=== PATIENT | female | born 1965 | race African-American/Black ===

== ENCOUNTER 2019-04-22 18:40 | Emergency (ER) | payer OTHER ==
[2019-04-22 19:32] VITALS: BP 140/94; PULSE 74; TEMP 98; BMI 30.7
--- NOTE | 2019-04-22 19:32 | PDOC ---
Rapid Medical Evaluation Chief Complaint: Injury Time Seen by Provider: 04/22/19 19:28 Medical Evaluation: Allergies Allergy/AdvReac Type Severity Reaction Status Date / Time aspirin Allergy Verified 04/22/19 19:27 Penicillins Allergy Hives Verified 04/22/19 19:27 morphine AdvReac Mild Itching Verified 04/22/19 19:27 ASA Allergy Hives Uncoded 04/22/19 19:27 SEAFOOD Allergy Hives Uncoded 04/22/19 19:27 04/22/19 19:28 This patient had a brief medical evaluation in triage cc: s/p fall HPI: Patient reports trip and fall today, unto back. Reports pain in right wrist and left ankle Denies loc, nausea or vomiting PE: awake and alert, no head laceration unlabored breathing ext: + tenderness with FROM of right wrist + tenderness with palpation of left lateral malleolus Orders: xray of right hand and wrist, and xray of left ankle This patient will proceed to main ed for further evaluation Discharge Disposition - Diagnosis Fall - Referrals - Patient Instructions - Post Discharge Activity
--- NOTE | 2019-04-22 22:33 | PDOC ---
History of Present Illness - General Chief Complaint: Injury Stated Complaint: FALL/PAIN Time Seen by Provider: 04/22/19 19:28 - History of Present Illness Initial Comments: 04/22/19 22:27 53-year-old female with seizure disorder presents for evaluation of multiple injuries after a fall. She complains of headache and dizziness after slipping and banging her head about the occipital scalp. 04/22/19 22:28 She also complains of left foot and right hand pain. Past History - Past Medical History Allergies/Adverse Reactions: Allergies Allergy/AdvReac Type Severity Reaction Status Date / Time aspirin Allergy Verified 04/22/19 19:27 Penicillins Allergy Hives Verified 04/22/19 19:27 morphine AdvReac Mild Itching Verified 04/22/19 19:27 ASA Allergy Hives Uncoded 04/22/19 19:27 SEAFOOD Allergy Hives Uncoded 04/22/19 19:27 Home Medications: Ambulatory Orders Clopidogrel Bisulfate [Plavix -] 75 mg PO DAILY 10/07/15 Haloperidol [Haldol -] 5 mg PO BID 10/07/15 Pantoprazole Sodium [Protonix -] 40 mg PO DAILY 10/07/15 Phenobarbital 32.4 mg PO TID 10/07/15 Salmeterol/Fluticasone [Advair 100Mcg/50Mcg -] 2 inh PO BID 10/07/15 traMADol HCL [Ultram -] 50 mg PO Q6H PRN 10/07/15 Asthma: Yes Cardiac Disorders: Yes CVA: Yes COPD: No Disorders: Yes (kidney stones) HTN: Yes Seizures: Yes - Surgical History Abdominal Surgery: Yes (HERNIA) Cardiac Surgery: Yes (cath/stents) - Immunization History Td Vaccination: Yes Immunization Up to Date: Yes - Psycho Social/Smoking Cessation Hx Smoking Status: Yes Smoking History: Current every day smoker Have you smoked in the past 12 months: Yes Number of Cigarettes Smoked Daily: 2 Information on smoking cessation initiated: No 'Breaking Loose' booklet given: 10/07/15 Hx Alcohol Use: No Drug/Substance Use Hx: No Substance Use Type: None Hx Substance Use Treatment: No Review of Systems - Review of Systems Musculoskeletal: Yes: Joint Pain Neurological: Yes: Headache, Dizziness *Physical Exam - Vital Signs Last Vital Signs Temp Pulse Resp BP Pulse Ox 98.0 F 74 20 140/94 100 04/22/19 19:28 04/22/19 19:28 04/22/19 19:28 04/22/19 19:28 04/22/19 19:28 - Physical Exam 04/22/19 22:32 GENERAL: The patient is awake, alert, and fully oriented, in no acute distress. HEAD: Normal with no signs of trauma. EYES: sclera anicteric, conjunctiva clear. ENT: Ears normal tympanic membranes normal oropharynx clear uvula midline NECK: Normal range of motion LUNGS: Breath sounds equal, clear to auscultation bilaterally. No wheezes, and no crackles. HEART: S1 and S2 without murmur, rub or gallop. ABDOMEN: Soft, nontender, normoactive bowel sounds. No guarding, no rebound. No masses. EXTREMITIES: Normal range of motion, no edema. No clubbing or cyanosis. No cords, erythema, or tenderness. NEUROLOGICAL: Cranial nerves II through XII grossly intact. PSYCH: Normal mood, normal affect. SKIN: Warm, Dry, normal turgor, no rashes or lesions noted. Left foot and ankle skin color and temperature normal range of motion is slightly limited there is mild diffuse tenderness at the dorsum of the foot at a proportion to the examination no gross sensorimotor deficits neurovascular intact 04/22/19 22:32 Right hand skin color and temperature normal no swelling again tenderness seems out of proportion to the examination. Patient refuses to make full fist. No gross sensorimotor deficits neurovascular intact ED Treatment Course - RADIOLOGY Radiology Studies Ordered: Category Date Time Status CERVICAL SPINE CT W/O CONTR [CT] Stat CT Scan 04/22/19 20:[address] WITHOUT CONTRAST [CT] Stat CT Scan 04/22/19 20:11 Completed Medical Decision Making - Medical Decision Making 04/22/19 22:33 X-rays of the left foot and ankle and right hand and wrist show no evidence of fracture trauma or destructive process moderate arthritic changes throughout in both radiographs CT of the head and neck negative for acute process. Follow-up with neurology for postconcussion symptoms and for left foot and ankle and right hand pain follow-up with orthopedic surgery. 04/22/19 22:34 I have reviewed the pathophysiology with the patient. They are in agreement with the treatment plan all questions were answered to their satisfaction. Understanding for follow-up without fail was also conveyed to the patient. Again they are in agreement. Discharge - Discharge Information Problems reviewed: Yes Clinical Impression/Diagnosis: Fall, Right hand pain, Left foot pain, Post-concussion syndrome Condition: Stable Disposition: HOME - Admission No - Follow up/Referral Referrals: Jesse Corral MD [Primary Care Provider] - Pérez Meade MD [Staff Physician] - Federico Yusuf DO [Staff Physician] - - Patient Discharge Instructions Additional Instructions: Without fail follow-up with orthopedic surgery in 2 to 3 days for evaluation of your left foot and ankle pain as well as your right wrist. Without fail follow- up with neurology in 2 to 3 days for further evaluation of your headaches and possibly postconcussion syndrome. Tylenol as directed for pain. Return to the emergency room for worsening symptoms. - Post Discharge Activity
== END 2019-04-22 22:37 | disposition home or self-care (01) ==
LOC: JERFT 18:40
DX: G44.309 Post-traumatic headache, unspecified, not intractable (principal); F07.81 Postconcussional syndrome; M79.642 Pain in left hand; W19.XXXA Unspecified fall, initial encounter; M79.672 Pain in left foot; Y93.89 Activity, other specified; Y92.89 Other specified places as the place of occurrence of the external cause; Y99.8 Other external cause status; G40.909 Epilepsy, unspecified, not intractable, without status epilepticus; I25.10 Atherosclerotic heart disease of native coronary artery without angina pectoris; I10 Essential (primary) hypertension; Z95.5 Presence of coronary angioplasty implant and graft; F17.210 Nicotine dependence, cigarettes, uncomplicated; Z86.73 Personal history of transient ischemic attack (TIA), and cerebral infarction without residual deficits; Z87.09 Personal history of other diseases of the respiratory system; Z79.02 Long term (current) use of antithrombotics/antiplatelets; Z88.0 Allergy status to penicillin; Z88.5 Allergy status to narcotic agent; Z88.6 Allergy status to analgesic agent; Z91.013 Allergy to seafood; Z87.442 Personal history of urinary calculi
CPT/HCPCS: 70450-TC; 72125-TC; 73110-TC-RT-FY; 73130-TC-RT-FY; 73610-TC-LT-FY; 73630-TC-LT; 99284-25

== ENCOUNTER 2019-11-24 10:49 | Emergency (ER) | payer BC, OTHER ==
[2019-11-24 11:19] VITALS: BP 121/79; PULSE 82; TEMP 98; BMI 35.0
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
--- OUTSIDE RECORDS SUMMARY | 2019-11-24 11:49 | XMS ---
:1965 Author Organization [facility] Care Team Providers Name Role Phone Zahraa Wisdom Unavailable Unavailable Franky Watson Unavailable Unavailable HHQUIN, CNR9 Unavailable Unavailable Norberto Manjarrez Unavailable [email or web address] Manjarrez, Pushpinder Unavailable [email or web address] Manjarrez, Pushpinder Unavailable [email or web address] Manjarrez, Pushpinder Unavailable [email or web address] Manjarrez, Pushpinder Unavailable [email or web address] Manjarrez, Pushpinder Unavailable [email or web address] Manjarrez, Pushpinder Unavailable [email or web address] Manjarrez, Pushpinder Unavailable [email or web address] Danae Baxter MD Unavailable Unavailable ADUBORANTIONE MD Unavailable Unavailable ADUBOR, O MD Unavailable Unavailable ADUBOR, O MD Unavailable Unavailable ADUBOR, O MD Unavailable Unavailable ADUBOR, O MD Unavailable Unavailable ADUBOR, O MD Unavailable Unavailable ADUBOR, O MD Unavailable Unavailable ADUBOR, O MD Unavailable Unavailable ADUBOR, O MD Unavailable Unavailable ADUBOR, O MD Unavailable Unavailable ADUBOR, O MD Unavailable Unavailable ADUBOR, O MD Unavailable Unavailable ADUBOR, O MD Unavailable Unavailable ADUBOR, O MD Unavailable Unavailable ADUBOR, O MD Unavailable Unavailable ADUBOR, O MD Unavailable Unavailable ADUBOR, O MD Unavailable Unavailable ADUBOR, O MD Unavailable Unavailable ADUBOR, O MD Unavailable Unavailable Coon Unavailable Unavailable Coon Unavailable Unavailable Coon Unavailable Unavailable Coon Unavailable Unavailable Coon Unavailable Unavailable Coon Unavailable Unavailable Other Unavailable Unavailable Chianfagna, PA-C Unavailable Unavailable Nuria, DO Unavailable Unavailable Hu Unavailable Unavailable Spence, A PA-C Unavailable Unavailable Rios Unavailable Unavailable Lamsen Unavailable Unavailable Michaud Unavailable Unavailable Michaud Unavailable Unavailable Michaud Unavailable Unavailable Michaud Unavailable Unavailable MD Keiko Unavailable Unavailable MD Keiko Unavailable Unavailable MD Keiko Unavailable Unavailable MD Keiko Unavailable Unavailable MD Keiko Unavailable Unavailable MD Keiko Unavailable Unavailable MD Keiko Unavailable Unavailable [email or web address] Unavailable Unavailable MD Doris Unavailable Unavailable Alberto Unavailable Unavailable Corrina Unavailable Unavailable Naaraayan Unavailable Unavailable Thuy Walker MD Unavailable Unavailable Thuy Walker MD Unavailable Unavailable Thuy Walker MD Unavailable Unavailable Thuy Walker MD Unavailable Unavailable Iamele Unavailable Unavailable Iamele Unavailable Unavailable Iamele Unavailable Unavailable MD Suyapa Unavailable Unavailable Re-disclosure Warning The records that you are about to access may contain information from federally- assisted alcohol or drug abuse programs. If such information is present, then the following federally mandated warning applies: This information has been disclosed to you from records protected by federal confidentiality rules (42 CFR part 2). The federal rules prohibit you from making any further disclosure of this information unless further disclosure is expressly permitted by the written consent of the person to whom it pertains or as otherwise permitted by 42 CFR part 2. A general authorization for the release of medical or other information is NOT sufficient for this purpose. The Federal rules restrict any use of the information to criminally investigate or prosecute any alcohol or drug abuse patient.The records that you are about to access may contain highly sensitive health information, the redisclosure of which is protected by Article 27-F of the [facility] Public Health law. If you continue you may haveaccess to information: Regarding HIV / AIDS; Provided by facilities licensed or operated by the [facility] Office of Mental Health; or Provided by the [facility] Office for People With Developmental Disabilities. If such information is present, then the following [facility] mandated warning applies: This information has been disclosed to you from confidential records which are protected by state law. State law prohibits you from making any further disclosure of this information without the specific written consent of the person to whom it pertains, or as otherwise permitted by law. Any unauthorized further disclosure in violation of state law may result in a fine or halfway sentence or both. A general authorization for the release of medical or other information is NOT sufficient authorization for further disclosure. 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 directive Hospital Advance No completed [facility] directive Hospital Allergies and Adverse Reactions Type Description Substance Reaction Status Data Source(s ) Drug allergy clindamycin HCl clindamycin HCl SI GMACARE ([facility]) Food allergy shellfish shellfish SOB SV [facility] Hospital Drug allergy ondansetron ondansetron RASH MO [facility] Hospital Drug allergy aspirin aspirin RASH MO [facility] Drug allergy morphine morphine RASH MO [facility] Drug allergy Penicillins Penicillins RASH MO [facility] Drug allergy Morphine Morphine Itching NEXTGEN ([facility]) propensity to Penicillins Penicillins Hives NEXTGEN ( [facility] adverse reactions [facility]) [id number] Synonym(s): BONY Weal Active [facility] FLESH; Health System MINCED FISH Miscellaneous Sea Food Sea Food SIGMACARE allergy ([facility]) Drug allergy penicillin G penicillin G SIGMACAR E benzathine benzathine ([facility]) Drug allergy aspirin aspirin SIGMACARE ([facility]) [id number] clindamycin Clindamycin Weal Active [facility] System [id number] aspirin Aspirin Weal Active [facility] 360285429 penicillin Penicillin Weal Active [facility] [id number] Fish Synonym(s): BONY Weal Active [facility] FLESH; [facility] MINCED FISH [id number] Iohexol Other See Desc Active [facility] Pruritic rash Health Syst em itching [id number] Penicillin [facility] [id number] Aspirin Weal Active [facility] Encounters Encounter Providers Location Date Indications Data Source(s ) Outpatient Attender: [address] 09/21/2019 [facility] ([facility] 11:29:59 AM [facility] EDT [facility]) Patient admitted. Outpatient Attender: [address] 07/31/2019 03:49:30 PM [facility] EDT [facility]) Patient admitted. Outpatient Attender: [address] 06/19/2019 11:16:14 AM [facility] EDT [facility]) Patient admitted. Outpatient Attender: [address] 06/19/2019 11:14:31 AM [facility] EDT [facility]) Patient admitted. Outpatient Attender: [address] 06/19/2019 11:04:45 AM [facility] ([facility] EDT [facility]) Patient admitted. Outpatient Attender: [address] 05/10/2019 06:23:22 AM [facility] ([facility] EDT [facility]) Patient admitted. Outpatient Attender: [address] 03/14/2019 03:18:47 PM [facility] EST [facility]) Patient admitted. Inpatient Attender: Mahdi QUISPE 03/13/2019 R47.81 Slurred S - [facility] MDAttender: 12:51:00 PM EST - [facility] RiosAttender: 03/14/2019 Doctor OtherAdmitter: 07:45:00 PM EST Mahdi Aden MDConsultant: Dede Adan R47.81 Slurred speech Patient discharged. Outpatient Attender: CNR9 [facility]CCC 03/04/2019 03:49:40 PM [facility] ([facility]) Patient admitted. Inpatient Attender: Norberto 6 WEST-3 EAST 02/27/2019 02:00:00 SIGMACARE ([facility] PM EST - 02/27/2019 Exten ded Care 08:39:00 PM EST Center) Patient discharged. Inpatient Attender: Mahdi Bourgeois5T 02/22/2019 SEIZURE [facility] - Betty nt Marco MDAttender: 01:48:00 AM EST [facility] DysonAttender: 02/27/2019 ISCHEMIC [facility] Doctor OtherAdmitter: 10:00:00 AM EST Mahdi Aden MDReferrer: ANTIONE CRANE MD SEIZURE TRANSCIENT ISCHEMIC ATTACK Patient discharged. Inpatient Attender: Deon GARCIA-PCU 02/01/2019 R56.9 Seizure Rashad Vu: 08:11:00 AM EST Alison Loyd BasakAttender: - 02/04/2019 [facility] 12:35:00 PM EST StefaniAttender: Asher Wakler MDAttender: Doctor OtherAdmitter: Ana Merc[facility]nt [facility] R56.9 Seizure Patient discharged. Emergency Attender: Nadia 5T-EMERG 01/25/2019 08:55:00 HEADACHE S - [facility] HuAttender: PM EST - 01/25/2019 [facility] Other 10:16:00 PM EST HEADACHE Patient discharged. Inpatient Attender: Danae Baxter 01/22/2019 02:12:00 SE ROSET[place] MDAttender: Sumit PM EST - [facility]e 10:14:00 PM EST Vee JJ SEIZURE Patient discharged. Emergency Attender: 5T-EMERG 01/22/2019 10:43:00 DIZZINESS [facility] - [place] Other AM EST [facility] l DIZZINESS Admission cancelled. Disregard status an d admitted date. Emergency Attender: Zahraa ICU-EMERG 12/30/2018 WEAKNESS/EMPRESS Rashad Wisdom 10:50:00 AM EST - Tamica e 12/30/2018 [facility] 04:35:00 PM EST WEAKNESS/EMPRESS Patient discharged. Emergency Attender: Zoraida 12/10/2018 01:35:00 BACK/WRIST PAIN Michelle Spence PM EDT - 12/10/2018 [facility] 04:36:00 PM EDT BACK/WRIST PAIN [facility] Patient discharged. Emergency Attender: Gera 12/05/2018 12:28:00 ALLERGIC REACTION Michelle Quiñones DO PM EDT - 12/05/2018 [facility] 12:54:00 PM EDT ALLERGIC REACTION [place] Patient discharged. Emergency Attender: Nadia Avalos 5T-EMERG 11/23/2018 11:44:00 TOOTHACH E [facility] EDT - 11/24/2018 [facility] 12:45:00 AM EDT TOOTHACHE Patient discharged. Emergency 5T-EMERG 11/05/2018 10:27:00 PM FALL, INJURY TO [facility] EDT [facility], [facility]JURY TO [facility] Admission cancelled. Disregard status an d admitted date. Emergency Attender: Edpancho 5T-EMERG 10/25/2018 04:01:00 OFF PSYCH [facility] EDT - 10/25/2018 [facility] 06:49:00 PM EDT OFF PSYCH MEDS Patient discharged. [facility]: [facility] 05/24/2018 [facility] ([facility] 10:15:00 AM EDT - [facility] 05/24/2018 [place]) 10:15:00 AM EDT Emergency 5T-EMERG 05/22/2018 HEADACHE [facility] 07:12:00 AM EDT [place] [facility] HEADACHE Emergency 5T-EMERG 04/07/2018 04:26:00 AM EST ABD PAIN [facility] ABD PAIN Attender: Saint Alva[place]ga 02/22/2018 [facility] ([facility] 01:07:00 PM EST - [facility] 02/22/2018 [place]) 01:07:00 PM EST Attender: [facility] 01/22/2018 [facility] ([facility] 02:05:00 PM EST - [facility] 01/22/2018 [place]) 02:05:00 PM EST Attender: [place] 01/22/2018 [facility] ([facility] 02:00:00 PM EST - [facility] 01/22/2018 [place]) 02:00:00 PM EST Attender: [place] 01/18/2018 [facility] ([facility] 09:49:00 AM EST - [facility] 01/18/2018 [place]) 09:49:00 AM EST Attender: [place] 01[facility]17/2018 [facility] 08:57:00 AM EST - [facility] 01/17/2018 [place]) 08:57:00 AM EST Attender: [place] 01/08/2018 [facility] ([facility] 09:40:00 AM EST - [facility] 01/08/2018 [place]) 09:40:00 AM EST Attender: [place] 01/01/2018 [facility] ([facility] 02:19:00 PM EST - [facility] 01/01/2018 [place]) 02:19:00 PM EST Attender: [place] 12/29/2017 [facility] ([facility] 03:37:00 PM EST - [facility] 12/29/2017 [place]) 03:37:00 PM EST P Attender: Ramirez 11/29/2017 [facility] Suyapa JJ 01:59:00 AM EDT [facility] Attender: [place] 09/19/2017 [facility] 10:22:00 AM EDT ([facility] 09/19/2017 Ct 10:22:00 AM EDT Medical Center) Attender: [place] 09/18/2017 [facility] 10:50:00 AM EDT ([facility] 09/18/2017 Ct 10:50:00 AM EDT Medical Center) Attender: [place] 08/24/2017 [facility] 09:09:00 AM EDT ([facility] 08/24/2017 Ct 09:09:00 AM EDT Medical Center) Attender: 07/26/2017 [id number] 10:18:00 AM EDT [facility] [id number] [facility]_6766 Attender: 07/19/2017 [facility] [id number] 01:34:00 PM EDT [facility] [id number] [facility]6766 Emergency Attender: Franky 07/18/2017 SEIZURE [facility] 02:14:00 AM EDT [facility] - 07/18/2017 06:30:00 AM EDT SEIZURE [facility] Attender: Franky 07/18/2017 01:44:00 SEIZURE- [place] AM EDT [facility] Attender: 03/30/2017 [facility] [id number] 09:00:00 PM [facility]6766 Hospital Attender: 03/23/2017 [place] [id number] 04:45:00 PM [facility]6766 Hospital Attender: Mari Michaud [place] 03/01/2017 [facility] 10:56:00 AM EST [facility] 03/01/2017 Ct 10:56:[address] [facility]) Attender: 03/01/2017 [facility] [id number] 10:19:00 AM [facility]6766 Hospital Attender: 02/28/[id number] 01:56:00 PM EST [facility]6766 Hospital Attender: 06/20/[id number] 11:53:[facility]: 11/17/2010 [place] [id number] 10:10:00 [facility] Attender: 11/15/2010 [place] [id number] 04:23:00 PM EDT [facility]6766 Hospital Attender: 09/07/2010 [facility] [id number] 06:37:00 PM EDT [facility]6766 Hospital Attender: 10/28/2005 [facility] [id number] 05:00:00 PM EDT [facility]6766 Hospital Attender: 10/28/2005 [facility] [id number] 12:00:00 AM EDT [place] [id number] [facility] Immunizations Vaccine Date Status Description Data Source(s) IIV3. This is 02/26/2019 completed Influenza, seasonal, inject able On: 26-Feb-2019 [facility] one of two 12:00:00 AM EST Lot #: [id number] Health System codes replacing CVX [id number], which is being retired. Tdap 09/19/2017 12:00:00 AM EDT completed Tdap N EXTGEN ([facility]) Source: New Immunization Record New in 2011. 03/29/2017 09:02:00 completed influenza, injectable , [place] IIV4 AM EST quadrivalent, preserv Hospit al free New in 2011. 03/29/2017 09:02:00 completed influenza, injectable , [place] IIV4 AM EST quadrivalent, preserv Hospit al free New in 2011. 03/29/2017 09:02:00 completed influenza, injectable , [place] IIV4 AM EST quadrivalent, preserv Hospit al free New in 2011. 03/01/2017 12:00:00 completed Influenza, injectable , NEXTGEN ([facility] IIV4 AM EST quadrivalent, Ct Medica l preservative free, 3 Center) yrs or older Source: New Immunization Record Medications Medication Brand Start Product Dose Route Administrative Pharmacy [facility] Indications Reaction Description Data Name Date Form Instructions Instructions Source(s) Phenytoin phenyt A05765 active Phenyte k [facility] sodium 200 oin 2020 {cap( Health MG Extended 200 mg 07:27: s)} Syst em Release oral 58 PM Oral capsul EST Capsule e, phenytoin extend 200 mg oral ed capsule, releas extended e release Phenobarbit PHENob P04490 active Pheno barbita [facility] al 64.8 MG arbita 2019 {tab( l Health Oral Tablet l 64.8 07:27: s)} Syst em PHENobarbit mg 36 PM al 64.8 mg oral EST oral tablet tablet Sertraline sertra J26341 active Sertra line [facility] 50 MG Oral line 2019 {tab( Health Tablet 50 mg 07:27: s)} System sertraline oral 21 PM 50 mg oral tablet EST tablet Amlodipine amLODI J41228 active AmLODI [place] [facility] 5 MG Oral [place] 5 2019 {tab( Besylate Hea lth Tablet mg 07:27: s)} System amLODIPine oral 13 PM 5 mg oral tablet EST tablet clopidogrel clopid [id number] active Clopi dogrel [facility] 75 MG Oral ogrel 2019 {tab( Bisulfate He alth Tablet 75 mg 07:27: s)} System clopidogrel oral 04 PM 75 mg oral tablet EST tablet benztropine benztr [id number] active Benzt ropine [facility] mesylate 1 opine 2019 {tab( Mesylate Hea lth MG Oral 1 mg 07:26: s)} System Tablet oral 55 PM benztropine tablet EST 1 mg oral tablet Metformin metFOR [id number] active Glucoph age [facility] hydrochlori MIN 2019 {tab( Health de 500 MG 500 mg 07:26: s)} System Oral Tablet oral 33 PM metFORMIN tablet EST 500 mg oral tablet Clonazepam clonazePAM 03/14/2019 1 I44805 aborted clonazePAM 1 mg oral tablet; 1 tab(s) orally 2 times a day Ordered: 14-Mar-2019 Start: 14-Mar-2019 [facility] 1 MG Oral 1 mg oral 07:24:42 PM {tab(s)} Quantity: 0 Tu, Wan Status: Discontinued Health Tablet tablet EST Refills: 0 System clonazePAM 1 mg oral tablet Flucelvax Quad [id number] 02/27/2019 completed Flucelvax Quad SIGMACARE (PF) 08:24:06 AM 201 (PF) ([facility] (flu vac qs EST 60 mcg (15 mc g Extended 2019(4 yr x 4)/0.5 mL IM Care up)cd(pf)) [address]) mcg (15 mcg x 4)/0.5 mL IM syringe Tubersol Purified 02/27/2019 completed T ubersol 5 SIGMACARE (tuberculin Protein 08:24:06 AM tub . unit/0.1 ([facility] ppd) 5 tub. Derivative of EST mL i ntradermal Extended unit/0.1 mL Tuberculin 50 inje ction Care intradermal UNT/ML solution Ce nter) injection Injectable solution Solution [Tubersol] benztropine 1 benztropine 02/27/2019 completed benztropine 1 SIGMACARE mg tablet mesylate 1 MG 07:31:30 AM mg tablet ([facility] Oral Tablet [facility]) amlodipine 5 mg Amlodipine 5 MG 02/27/2019 complet ed amlodipine 5 SIGMACARE tablet Oral Tablet 07:31:30 AM mg t ablet ([facility]) clopidogrel 75 clopidogrel 75 02/27/2019 completed clopidogrel 75 SIGMACARE mg tablet MG Oral Tablet 07:31:30 AM mg tablet ([facility]) phenytoin [id number] 02/27/2019 completed phenytoin SIGMACARE sodium extended 07:31:29 AM so dium ([facility] 200 mg capsule EST extended 2 00 Extended mg capsule [facility]) phenobarbital Phenobarbital 02/27/2019 completed phenobarbital SIGMACARE 64.8 mg tablet 64.8 MG Oral 07:31:29 AM 64.8 mg tablet ([facility] Tablet [facility]) sertraline 50 Sertraline 50 02/27/2019 completed sertraline 50 SIGMACARE mg tablet MG Oral Tablet 07:31:29 AM mg tablet ([facility] Extended [facility]) metformin 500 Metformin 02/27/2019 completed metformin 500 SIGMACARE mg tablet hydrochloride 07:31:28 AM mg tablet ([facility] 500 MG Oral EST Extended Tablet [facility]) Phenobarbital PHENobarbital 02/26/2019 1 C active Phenobarbital [facility] 64.8 MG Oral 64.8 mg oral 11:02:45 AM {t 3 Health Tablet tablet EST ab 8 System PHENobarbital (s 2 64.8 mg oral )} 8 tablet 8 Sertraline 50 sertraline 50 02/26/2019 1 C active Sertraline [facility] MG Oral Tablet mg oral tablet 11:02:36 AM {t 3 Health sertraline 50 EST ab 8 System mg oral tablet (s 2 )} 8 8 Phenytoin phenytoin 200 02/26/2019 1 C aborted Phenytek [facility] sodium 200 MG mg oral 11:01:51 AM {c 3 Health Extended capsule, EST ap 8 System Release Oral extended (s 2 Capsule release )} 8 phenytoin 200 8 mg oral capsule, extended release Amlodipine 5 MG amLODIPine 5 mg 02/26/2019 1 C active AmLODIPine [facility] Oral Tablet oral tablet 11:01:37 AM {t 3 [facility] amLODIPine 5 mg EST ab 8 Syst em oral tablet (s 2 )} 8 8 clopidogrel 75 clopidogrel 75 02/26/2019 1 C active Clopidogrel [facility] MG Oral Tablet mg oral tablet 11:01:30 AM {t 3 Bisulfate Health clopidogrel 75 EST ab 8 Syste m mg oral tablet (s 2 )} 8 8 benztropine benztropine 1 02/26/2019 1 C active Benztropine [facility] mesylate 1 MG mg oral tablet 11:01:21 AM {t 3 Mesylate Health Oral Tablet EST ab 8 System benztropine 1 (s 2 mg oral tablet )} 8 8 Metformin metFORMIN 500 02/26/2019 1 C active Glucophage [facility] hydrochloride mg oral tablet 11:01:06 AM {t 3 Health 500 MG Oral EST ab 8 System Tablet (s 2 metFORMIN 500 )} 8 mg oral tablet 8 Amlodipine 5 MG amLODIPine 5 mg 02/04/2019 1 C active AmLODIPine [facility] Oral Tablet oral tablet 12:35:43 PM {t 3 [facility] amLODIPine 5 mg EST ab 8 Syst em oral tablet (s 2 )} 8 8 Nicotine nicotine 02/04/2019 14 active nicotine; 14 milligram(s) transdermally once a day Ordered: 04-Feb-2019 Start: 04-Feb-2019 End: 17-Feb-2019 [facility] nicotine 12:06:27 PM mg Quantity: 14 Heath [employer] EST Refills: 0 System Amlodipine 5 amLODIPine 02/04/2019 5 [id number] aborted AmLODIPine [facility] MG Oral 5 mg oral 12:05:48 PM {tab(s)} B esylate Health Tablet tablet EST System amLODIPine 5 mg oral tablet clopidogrel clopidogrel 02/04/2019 1 [id number] active Clopidogrel [facility] 75 MG Oral 75 mg oral 12:03:26 PM {tab(s)} Bisulfate Health Tablet tablet EST System clopidogrel 75 mg oral tablet Naproxen 500 Naproxen 12/10/2018 T 500 mg ORAL complete White MG Oral 04:03:00 PM A d Plain s Tablet EDT B [facility] [Naprosyn] L E T Methocarbamo Methocarbam 12/10/2018 T 750 mg ORAL complete White l 750 MG ol 04:03:00 PM A d Plai ns Oral Tablet EDT B Hospital [Robaxin] L E T Methocarbamo Methocarbam 12/10/2018 T 750 mg ORAL complete White l 750 MG ol 04:03:00 PM A d Plai ns Oral Tablet EDT B [facility] [Robaxin] L E T Naproxen 500 Naproxen 12/10/2018 T 500 mg ORAL complete White MG Oral 04:03:00 PM A d Plain s Tablet EDT [facility] [Naprosyn] L E T Diphenhydram Diphenhydra 12/05/2018 C 25 mg ORAL complete [facility] ine mine Hcl 12:55:00 PM A d Plai ns Hydrochlorid EDT [facility]osp[facility] e 25 MG Oral S Capsule U [Benadryl] L Diphenhydram E ine Hcl Diphenhydram Diphenhydra 12/05/2018 C 25 mg ORAL complete [facility] ine mine Hcl 12:55:00 PM A d Plai ns Hydrochlorid EDT P Hospita l e 25 MG Oral S Capsule U [Benadryl] L Diphenhydram E ine Hcl Diphenhydram Diphenhydra 12/05/2018 C 25 mg ORAL complete White ine mine Hcl 12:55:00 PM A d Plai ns Hydrochlorid EDT P Hospita l e 25 MG Oral S Capsule U [Benadryl] L Diphenhydram E ine Hcl Hydrocortiso Hydrocortis 12/05/2018 C 1 TOPICAL complete [facility] ne 10 MG/ML one 12:54:00 PM R {Applicat d [facility] Topical EDT E or} Hospital Cream A M Hydrocortiso Hydrocortis 12/05/2018 C 1 TOPICAL complete [facility] ne 10 MG/ML one 12:54:00 PM R {Applicat d [facility] Topical EDT E or} Hospital Cream A M Hydrocortiso Hydrocortis 12/05/2018 C 1 TOPICAL complete [facility] ne 10 MG/ML one 12:54:00 PM R {Applicat d [facility] Topical EDT E or} Hospital Cream A M Diphenhydram Diphenhydra 12/05/2018 C 25 mg ORAL complete [facility] in[facility] Hcl 12:43:00 PM A d [facility]ai ns Hydrochlorid EDT P [facility]ospita [facility] e 25 MG Oral S Capsule U [Benadryl] L Diphenhydram E ine Hcl Diphenhydram Diphenhydra 12/05/2018 C 25 mg ORAL complete [facility] in[facility] Hcl 12:43:00 PM A d Plai ns Hydrochlorid EDT P [facility]ospita [facility] e 25 MG Oral S Capsule U [Benadryl] L Diphenhydram E ine Hcl Diphenhydram Diphenhydra 12/05/2018 C 25 mg ORAL complete [facility] in[facility] Hcl 12:43:00 PM A d Plai ns Hydrochlorid EDT P [facility]ospita [facility] e 25 MG Oral S Capsule U [Benadryl] L Diphenhydram E ine Hcl Hydrocortiso Hydrocortis 12/05/2018 C 1 TOPICAL complete [facility] ne 10 MG/ML one 12:43:00 PM R {Applicat d [facility] Topical EDT E or} Hospital Cream A M Hydrocortiso Hydrocortis 12/05/2018 C 1 TOPICAL complete [facility] ne 10 MG/ML one 12:43:00 PM R {Applicat d [facility] Topical EDT E or} Hospital Cream A M Hydrocortiso Hydrocortis 12/05/2018 C 1 TOPICAL complete [facility] ne 10 MG/ML one 12:43:00 PM R {Applicat d [facility] Topical EDT E or} Hospital Cream A M Ibuprofen ibuprofen 11/24/2018 1 [id number] complete Ibuprofen [facility] 800 MG Oral 800 mg oral 12:27:02 AM {tab(s)} d [facility] Tablet tablet EDT System ibuprofen 800 mg oral tablet Hydroxyzine hydrOXYzine 10/25/2018 1 [id number] aborted Vistaril [facility] Pamoate 50 pamoate 50 06:23:48 PM {cap(s)} Health MG Oral mg oral EDT System Capsule capsule hydrOXYzine pamoate 50 mg oral capsule May cause drowsiness. Alcohol may inten sify this effect. Use care when operating dangerous machinery.Obtain medical advic e before taking any non-prescription drugs as some may affect the action of this medic ation. Haloperidol haloperidol 10/25/2018 1 [id number] aborted Haloperidol [facility] 5 MG Oral 5 mg oral 06:22:42 PM {tab(s)} Health Tablet tablet EDT System haloperidol 5 mg oral tablet It is very important that you take or us e this exactly as directed. Do not skip doses or discontinue unless directed by your doctor.May cause drowsiness. Alcohol may intensify this effect. Use care whe n operating dangerous machinery.Obtain medical advice before taking any non-pre scription drugs as some may affect the action of this medication. benztropine benztropine 10/25/2018 1 [id number] aborted Benztropine [facility] mesylate 1 1 mg oral 06:22:30 PM {tab(s)} Mesylate [facility] MG Oral tablet EDT System Tablet benztropine 1 mg oral tablet It is very important that you take or us e this exactly as directed. Do not skip doses or discontinue unless directed by your doctor.May cause drowsiness. Alcohol may intensify this effect. Use care whe n operating dangerous machinery.Obtain medical advice before taking any non-pre scription drugs as some may affect the action of this medication. Cyclobenzaprine cyclobenzaprine 02/24/2018 1 [id number] completed Cyclobenzaprine [facility] hydrochloride 10 10 mg oral 09:51:14 AM {tab(s)} Hydrochloride [facility] MG Oral Tablet tablet EST Sys tem cyclobenzaprine 10 mg oral tablet May cause drowsiness. Alcohol may inten sify this effect. Use care when operating dangerous machinery.Obtain medical advic e before taking any non-prescription drugs as some may affect the action of this medic ation. Lidocaine Lidoderm 02/24/2018 1 [id number] completed Lidoderm [facility] Hydrochloride 5% 09:50:31 AM {PATCH} Health 0.05 MG/MG topical EST System Transdermal film Patch [Lidoderm] Lidoderm 5% topical film For external use only.Remove old patch p rior to applying a new patch. benztropine benztropine 1 02/14/2018 TABLET 1 ORAL completed [facility] mesylate 1 MG mg oral 10:20:59 AM {tab(s)} [facility] Oral Tablet tablet EST System benztropine 1 mg oral tablet It is very important that you take or us e this exactly as directed. Do not skip doses or discontinue unless directed by your doctor.May cause drowsiness. Alcohol may intensify this effect. Use care whe n operating dangerous machinery.Obtain medical advice before taking any non-pre scription drugs as some may affect the action of this medication. Clonazepam KlonoPIN 02/14/2018 1 {tab(s)} [id number] aborted KlonoPIN [facility] 0.5 MG Oral 0.5 mg 10:20:29 AM Health Tablet oral EST System [Klonopin] tablet KlonoPIN 0.5 mg oral tablet Caution federal law prohibits the transf er of this drug to any person other than the person for whom it was prescribed.Do not drink alcoholic beverages when taking this medication.Do not take this drug if you are .It is very important that you take or use this exactly as directed. D o not skip doses or discontinue unless directed by your doctor.May cause drowsi ness. Alcohol may intensify this effect. Use care when operating dangerous morales ju[place].Obtain medical advice before taking any non-prescription drugs as some may affec t the action of this medication.This drug may impair the ability to drive or operate m [facility]. Use care until you become familiar with its effects. aripiprazole 20 Abilify - 01/15/2018 1 Tablet ORAL completed Abilify - [facility] Oral Tablet 20 MG ORAL 12:00:00 AM 20 MG [facility] [Abilify] Tablet EST ORAL Hospital Tablet Sertraline 50 Zoloft - 01/15/2018 3 Tablet ORAL completed Zoloft - [facility] Oral Tablet 50 MG ORAL 12:00:00 AM 50 MG [facility] [Zoloft] Tablet EST ORAL Hospital Tablet benztropine Benztropin 01/15/2018 1 Tablet ORAL completed Benztropi [facility] mesylate 1 MG e Mesylate 12:00:00 AM ne [facility] Oral Tablet - 1 MG EST Mesylate Ho spital ORAL - 1 MG Tablet ORAL Tablet Clonazepam 0.5 KlonoPIN - 12/15/2017 1 Tablet ORAL completed KlonoPIN [facility] Oral Tablet 0.5 MG 12:00:00 AM - 0.5 MG [facility] [Klonopin] ORAL EDT ORAL Hospital Tablet Tablet benztropine Benztropin 12/15/2017 2 Tablet ORAL completed Benztropi [facility] mesylate 2 MG e Mesylate 12:00:00 AM ne [facility] Oral Tablet - 2 MG EDT Mesylate Ho spital ORAL - 2 MG Tablet ORAL Tablet aripiprazole 20 Abilify - 12/15/2017 1 Tablet ORAL completed Abilify - [facility] Oral Tablet 20 MG ORAL 12:00:00 AM 20 MG [facility] [Abilify] Tablet EDT ORAL Hospital Tablet Sertraline 50 Zoloft - 12/15/2017 3 Tablet ORAL completed Zoloft - [facility] Oral Tablet 50 MG ORAL 12:00:00 AM 50 MG [facility] [Zoloft] Tablet EDT ORAL Hospital Tablet 24 HR Nicotine Nicotine 12/04/2017 PAT 1 TRANSD completed [facility] 0.875 MG/HR 02:58:00 PM [facility] {Patch} ERMAL [facility] Transdermal EDT [facility] Patch 24 HR Nicotine Nicotine 12/04/2017 PAT 1 TRANSD completed [facility] 0.875 MG/HR 02:58:00 PM [facility] {Patch} ERMAL [facility] Transdermal EDT [facility] Patch Salmeterol 12/04/2017 1 RESPIR completed [facility] Xinafoate/Fluti 02:58:00 PM ATORY [facility] casone EDT (INHAL [facility]) Salmeterol 12/04/2017 1 RESPIR completed [facility] Xinafoate/Fluti 02:58:00 PM ATORY [facility] casone EDT (INHAL [facility]) Albuterol 12/04/2017 AER 2 RESPIR completed [facility] 02:58:00 PM TAM ATORY [facility] EDT L, (INHAL [facility]) AY Salmeterol 12/04/2017 1 RESPIR completed [facility] Xinafoate/Fluti 02:58:00 PM ATORY [facility] casone EDT (INHAL [facility]) Losartan Losartan 12/04/2017 TAB 50 mg ORAL completed [facility] Potassium 50 MG Potassium 02:58:00 PM LET [facility] Oral Tablet EDT Hospital [Cozaar] Albuterol 12/04/2017 AER 2 RESPIR completed [facility] 02:58:00 PM TAM ATORY [facility] EDT L, (INHAL [facility]) AY Losartan Losartan 12/04/2017 TAB 50 mg ORAL completed [facility] Potassium 50 MG Potassium 02:58:00 PM LET [facility] Oral Tablet EDT Hospital [Cozaar] 24 HR Nicotine Nicotine 12/04/2017 PAT 1 TRANSD completed [facility] 0.875 MG/HR 02:58:00 PM [facility] {Patch} ERMAL [facility] Transdermal T [facility] Patch Losartan Losartan 12/04/2017 TAB 50 mg ORAL completed [facility] Potassium 50 MG Potassium 02:58:00 PM [facility] Oral Tablet T [facility] [Cozaar] Albuterol 12/04/2017 AER 2 RESPIR completed [facility] 02:58:00 PM TAM ATORY [facility] EDT L, ([facility]) AY Prednisone 20 Prednisone 11/27/2017 TAB 40 mg ORAL completed [facility] MG Oral Tablet 12:58:00 PM [facility] 200 ACTUAT Albuterol 11/27/2017 AER 2 ORAL completed [facility] Albuterol 0.09 Sulfate 12:58:00 PM TAM [facility] MG/ACTUAT Hfa EDT L, Hospital Metered Dose 90MCG/Inh* SPR Inhaler AY [ProAir] Albuterol Sulfate Hfa 90MCG/Inh* Prednisone 20 Prednisone 11/27/2017 TAB 40 mg ORAL completed [facility] MG Oral Tablet 12:58:00 PM [facility] 200 ACTUAT Albuterol 11/27/2017 AER 2 ORAL completed [facility] Albuterol 0.09 Sulfate 12:58:00 PM TAM [facility] MG/ACTUAT Hfa EDT L, Hospital Metered Dose 90MCG/Inh* SPR Inhaler AY [ProAir] Albuterol Sulfate Hfa 90MCG/Inh* 200 ACTUAT Albuterol 11/27/2017 AER 2 ORAL completed [facility] Albuterol 0.09 Sulfate 12:58:00 PM TAM [facility] MG/ACTUAT Hfa EDT L, Hospital Metered Dose 90MCG/Inh* SPR Inhaler AY [ProAir] Albuterol Sulfate Hfa 90MCG/Inh* Prednisone 20 Prednisone 11/27/2017 TAB 40 mg ORAL completed [facility] MG Oral Tablet 12:58:00 PM [facility] Naltrexone 112 Vivitrol - 11/14/2017 380 INTRAM completed Vivitrol [facility] MG/ML 380 MG 12:00:00 AM Milligra USCULA - 38 0 MG [facility] Injectable INTRAMUSCU EDT m R INTRAMUS C Hospital Suspension LAR Powder ULAR [Vivitrol] for Powder Suspension for , Extended Suspensio Release n, Extended Release atorvastatin 40 Atorvastat 11/14/2017 1 Tablet ORAL complete d Atorvasta [facility] Oral Tablet in Calcium 12:00:00 AM tin [facility] - 40 MG EDT Calcium - Hospita l ORAL 40 MG Tablet ORAL Tablet aripiprazole 15 Abilify - 11/14/2017 1 Tablet ORAL completed Abilify - [facility] MG Oral Tablet 15 MG ORAL 12:00:00 AM 15 MG [facility] [Abilify] Tablet EDT ORAL Hospital Tablet Sertraline 100 Sertraline 11/14/2017 1 Tablet ORAL completed Sertralin [facility] Oral Tablet HCl - 100 12:00:00 AM e HCl - [facility] MG ORAL EDT 100 MG Hospital Tablet ORAL Tablet benztropine Benztropin 11/14/2017 1 Tablet ORAL completed Benztropi [facility] mesylate 1 MG e Mesylate 12:00:00 AM ne [facility] Oral Tablet - 1 MG EDT Mesylate Ho spital ORAL - 1 MG Tablet ORAL Tablet Phenobarbital PHENobarbi 11/14/2017 1 Tablet ORAL completed PHENobarb [facility] 60 MG Oral brandon - 60 12:00:00 AM kerry l - 60 [facility] Tablet MG ORAL EDT MG ORAL Hospita l Tablet Tablet Clonazepam 1 MG KlonoPIN - 11/14/2017 1 Tablet ORAL complete d KlonoPIN [facility] Oral Tablet 1 MG ORAL 12:00:00 AM - 1 MG [facility] [Klonopin] Tablet EDT ORAL Hospita l Tablet Phenytoin Dilantin - 11/14/2017 1 ORAL completed Dilantin [facility] sodium 100 MG 100 MG 12:00:00 AM Capsule - 100 MG [facility] Extended ORAL EDT ORAL Hospital Release Oral Capsule, Capsule, Capsule Extended Extended [Dilantin] Release Release Haloperidol 11/14/2017 100 INTRAM completed Haloperid [facility] Decanoate - 100 12:00:00 AM Milligra USCULA ol [facility] MG/1 ML EDT m R [facility] INTRAMUSCULAR - 100 Oil MG/1 ML INTRAMUSC ULAR Oil clopidogrel 75 Clopidogre 10/26/2017 TAB 75 mg ORAL completed [facility] MG Oral Tablet l 01:00:00 PM LET [facility] [Plavix] Bisulfate EDT Hospit al Clopidogrel Bisulfate pantoprazole 40 Pantoprazo 10/26/2017 TAB 40 mg ORAL completed [facility] MG Delayed le Sodium 01:00:00 PM LET [facility] Release Oral EDT Hospita l Tablet [Protonix] Pantoprazole Sodium benztropine Benztropin 10/26/2017 TAB 1 mg ORAL completed [facility] mesylate 1 MG e Mesylate 01:00:00 PM LET [facility] Oral Tablet EDT Hospital Benztropine Mesylate atorvastatin 40 Atorvastat 10/26/2017 TAB 40 mg ORAL completed [facility] MG Oral Tablet in Calcium 01:00:00 PM LET [facility] Atorvastatin EDT Hospita l Calcium clopidogrel 75 Clopidogre 10/26/2017 TAB 75 mg ORAL completed [facility] MG Oral Tablet l 01:00:00 PM LET [facility] [Plavix] Bisulfate EDT Hospit al Clopidogrel Bisulfate benztropine Benztropin 10/26/2017 TAB 1 mg ORAL completed [facility] mesylate 1 MG e Mesylate 01:00:00 PM LET [facility] Oral Tablet EDT Hospital Benztropine Mesylate benztropine Benztropin 10/26/2017 TAB 1 mg ORAL completed [facility] mesylate 1 MG e Mesylate 01:00:00 PM LET [facility] Oral Tablet EDT Hospital Benztropine Mesylate pantoprazole 40 Pantoprazo 10/26/2017 TAB 40 mg ORAL completed [facility] MG Delayed le Sodium 01:00:00 PM LET [facility] Release Oral EDT Hospita l Tablet [Protonix] Pantoprazole Sodium Phenytoin Phenytoin 10/26/2017 CAP 1 ORAL completed [facility] sodium 100 MG Sodium 01:00:00 PM SUL {Capsule [facility] Extended Extended EDT E } Hospita l Release Oral Capsule Phenytoin Sodium Extended pantoprazole 40 Pantoprazo 10/26/2017 TAB 40 mg ORAL completed [facility] MG Delayed le Sodium 01:00:00 PM LET [facility] Release Oral EDT Hospita l Tablet [Protonix] Pantoprazole Sodium Metoprolol Metoprolol 10/26/2017 TAB 12.5 mg ORAL completed [facility] Tartrate 25 MG Tartrate 01:00:00 PM LET [facility] Oral Tablet EDT Hospital clopidogrel 75 Clopidogre 10/26/2017 TAB 75 mg ORAL completed [facility] MG Oral Tablet l 01:00:00 PM LET [facility] [Plavix] Bisulfate EDT Hospit al Clopidogrel Bisulfate Metoprolol Metoprolol 10/26/2017 TAB 12.5 mg ORAL completed [facility] Tartrate 25 MG Tartrate 01:00:00 PM LET [facility] Oral Tablet EDT Hospital atorvastatin 40 Atorvastat 10/26/2017 TAB 40 mg ORAL completed [facility] MG Oral Tablet in Calcium 01:00:00 PM LET [facility] Atorvastatin EDT Hospita l Calcium Metoprolol Metoprolol 10/26/2017 TAB 12.5 mg ORAL completed [facility] Tartrate 25 MG Tartrate 01:00:00 PM LET [facility] Oral Tablet EDT Hospital Phenytoin Phenytoin 10/26/2017 CAP 1 ORAL completed [facility] sodium 100 MG Sodium 01:00:00 PM SUL {Capsule [facility] Extended Extended EDT E } Hospita l Release Oral Capsule Phenytoin Sodium Extended Phenytoin Phenytoin 10/26/2017 CAP 1 ORAL completed [facility] sodium 100 MG Sodium 01:00:00 PM SUL {Capsule [facility] Extended Extended EDT E } Hospita l Release Oral Capsule Phenytoin Sodium Extended atorvastatin 40 Atorvastat 10/26/2017 TAB 40 mg ORAL completed [facility] MG Oral Tablet in Calcium 01:00:00 PM LET [facility] Atorvastatin EDT Hospita l Calcium Phenobarbital Phenobarbi 10/26/2017 TAB 64.8 mg ORAL completed [facility] 32.4 MG Oral brandon 12:26:00 PM LET [facility] Tablet EDT Hospital Phenobarbital Phenobarbi 10/26/2017 TAB 64.8 mg ORAL completed [facility] 32.4 MG Oral brandon 12:26:00 PM LET [facility] Tablet EDT Hospital Phenobarbital Phenobarbi 10/26/2017 TAB 64.8 mg ORAL completed [facility] 32.4 MG Oral brandon 12:26:00 PM LET [facility] Tablet EDT Hospital Phenytoin Dilantin - 10/20/2017 1 ORAL completed Dilantin [facility] sodium 100 MG 100 MG 12:00:00 AM Capsule - 100 MG [facility] Extended ORAL EDT ORAL Hospital Release Oral Capsule, Capsule, Capsule Extended Extended [Dilantin] Release Release Clonazepam 1 MG KlonoPIN - 10/20/2017 1 Tablet ORAL complete d KlonoPIN [facility] Oral Tablet 1 MG ORAL 12:00:00 AM - 1 MG [facility] [Klonopin] Tablet EDT ORAL Hospita l Tablet aripiprazole 15 Abilify - 10/20/2017 1 Tablet ORAL completed Abilify - [facility] MG Oral Tablet 15 MG ORAL 12:00:00 AM 15 MG [facility] [Abilify] Tablet EDT ORAL Hospital Tablet Naltrexone 112 Vivitrol - 10/20/2017 380 INTRAM completed Vivitrol [facility] MG/ML 380 MG 12:00:00 AM Mill[facility] USCULA - 38 0 MG [facility] Injectable INTRAMUSCU EDT m R INTRAMUS C Hospital Suspension LAR Powder ULAR [Vivitrol] for Powder Suspension for , Extended Suspensio Release n, Extended Release atorvastatin 40 Atorvastat 10/20/2017 1 Tablet ORAL complete d Atorvasta [facility] Oral Tablet in Calcium 12:00:00 AM tin [facility] - 40 MG EDT Calcium - Hospita l ORAL 40 MG Tablet ORAL Tablet Haloperidol 10/20/2017 100 INTRAM completed Haloperid [facility] Decanoate - 100 12:00:00 AM Millig[facility] USCULA ol [facility] MG/1 ML EDT m [facility] INTRAMUSCULAR - 100 Oil MG/1 ML INTRAMUSC ULAR Oil Sertraline 100 Sertraline 10/20/2017 1 Tablet ORAL completed Sertralin [facility] MG Oral Tablet HCl - 100 12:00:00 AM e HCl - [facility] MG ORAL EDT 100 MG Hospital Tablet ORAL Tablet benztropine Benztropin 10/20/2017 1 Tablet ORAL completed Benztropi [facility] mesylate 1 MG e Mesylate 12:00:00 AM ne [facility] Oral Tablet - 1 MG EDT Mesylate Ho spital ORAL - 1 MG Tablet ORAL Tablet Phenobarbital PHENobarbi 10/20/2017 1 Tablet ORAL completed PHENobarb [facility] 60 MG Oral brandon - 60 12:00:00 AM kerry l - 60 [facility] Tablet MG ORAL EDT MG ORAL Hospita l Tablet Tablet Haloperidol 10/03/2017 100 INTRAM completed Haloperid [facility] Decanoate - 100 12:00:00 AM Milligra USCULA ol [facility] MG/1 ML EDT m [facility] INTRAMUSCULAR - 100 Oil MG/1 ML INTRAMUSC ULAR Oil Sertraline 100 Sertraline 10/03/2017 1 Tablet ORAL completed Sertralin [facility] MG Oral Tablet HCl - 100 12:00:00 AM e HCl - [facility] MG ORAL EDT 100 MG Hospital Tablet ORAL Tablet atorvastatin 40 Atorvastat 10/03/2017 1 Tablet ORAL complete d Atorvasta [facility] MG Oral Tablet in Calcium 12:00:00 AM tin [facility] - 40 MG EDT Calcium - Hospita l ORAL 40 MG Tablet ORAL Tablet Phenobarbital PHENobarbi 10/03/2017 1 Tablet ORAL completed PHENobarb [facility] 60 MG Oral brandon - 60 12:00:00 AM kerry l - 60 [facility] Tablet MG ORAL EDT MG ORAL Hospita l Tablet Tablet Phenytoin Dilantin - 10/03/2017 1 ORAL completed Dilantin [facility] sodium 100 MG 100 MG 12:00:00 AM Capsule - 100 MG [facility] Extended ORAL EDT ORAL Hospital Release Oral Capsule, Capsule, Capsule Extended Extended [Dilantin] Release Release benztropine Benztropin 10/03/2017 1 Tablet ORAL completed Benztropi [facility] mesylate 1 MG e Mesylate 12:00:00 AM ne [facility] Oral Tablet - 1 MG EDT Mesylate Ho spital ORAL - 1 MG Tablet ORAL Tablet aripiprazole 15 Abilify - 10/03/2017 1 Tablet ORAL completed Abilify - [facility] MG Oral Tablet 15 MG ORAL 12:00:00 AM 15 MG [facility] [Abilify] Tablet EDT ORAL Hospital Tablet 24 HR Nicotine Nicotine 09/21/2017 PAT 1 TRANSD completed [facility] 0.875 MG/HR 03:20:00 PM [facility] {Patch} ERMAL [facility] Transdermal EDT Hospital Patch Nicotine 2 MG Nicotine 09/21/2017 GUM 2 mg ORAL completed [facility] Chewing Gum Polacrilex 03:20:00 PM [facility] [Nicorette] EDT Hospital Nicotine Polacrilex Nicotine 2 MG Nicotine 09/21/2017 GUM 2 mg ORAL completed [facility] Chewing Gum Polacrilex 03:20:00 PM [facility] [Nicorette] EDT Hospital Nicotine Polacrilex 24 HR Nicotine Nicotine 09/21/2017 PAT 1 TRANSD completed [facility] 0.875 MG/HR 03:20:00 PM [facility] {Patch} ERMAL [facility] Transdermal EDT Hospital Patch 24 HR Nicotine Nicotine 09/21/2017 PAT 1 TRANSD completed [facility] 0.875 MG/HR 03:20:00 PM CH {Patch} [facility] Transdermal EDT [facility] Patch Nicotine 2 MG Nicotine 09/21/2017 GUM 2 mg ORAL completed [facility] Chewing Gum Polacrilex 03:20:00 PM [facility] [Nicorette] EDT Hospital Nicotine Polacrilex Haloperidol 09/07/2017 100 INTRAM completed Haloperid [facility] Decanoate - 100 12:00:00 AM Millig[facility] USCULA ol [facility] MG/1 ML EDT m [facility] INTRAMUSCULAR - 100 Oil MG/1 ML INTRAMUSC ULAR Oil Sertraline 100 Sertraline 09/06/2017 1 Tablet ORAL completed Sertralin [facility] MG Oral Tablet HCl - 100 12:00:00 AM e HCl - [facility] MG ORAL EDT 100 MG Hospital Tablet ORAL Tablet aripiprazole 15 Abilify - 09/06/2017 1 Tablet ORAL completed Abilify - [facility] MG Oral Tablet 15 MG ORAL 12:00:00 AM 15 MG [facility] [Abilify] Tablet EDT ORAL Hospital Tablet benztropine Benztropin 09/06/2017 1 Tablet ORAL completed Benztropi [facility] mesylate 1 MG e Mesylate 12:00:00 AM ne [facility] Oral Tablet - 1 MG EDT Mesylate Ho spital ORAL - 1 MG Tablet ORAL Tablet Phenobarbital phenobarbi 08/24/2017 1 {tbl} ORAL active take 1 NEXTGEN 97.2 MG Oral brandon 97.2 12:00:00 AM t ablet by ([facility] Tablet mg tablet EDT oral Ct phenobarbital route 2 Med ical 97.2 mg tablet times Cent er) every day at bedtime 200 ACTUAT Ventolin 08/24/2017 2.00 RESPIR active 200 NEXTGEN Albuterol 0.09 HFA 90 12:00:00 AM {puff} ATORY ACTUAT ([facility] MG/ACTUAT mcg/actuat EDT (INHAL Albuter ol Ct Metered Dose ion ATION) 0.09 Medic al Inhaler aerosol MG/ACTUAT Cent er) [Ventolin] inhaler Metered Ventolin HFA 90 Dose mcg/actuation Inhaler aerosol inhaler [Ventolin ] Phenytoin Dilantin 08/24/2017 2 ORAL active rafia e 2 NEXTGEN sodium 100 MG Kapseal 12:00:00 AM {capsule capsule ([facility] Extended 100 mg EDT } by oral Ed s Release Oral capsule route 3 M edical Capsule times Center) Dilantin every day Kapseal 100 mg capsule Sertraline 100 Sertraline 08/07/2017 1 Tablet ORAL completed Sertralin [facility] MG Oral Tablet HCl - 100 12:00:00 AM e HCl - [facility] MG ORAL EDT 100 MG Hospital Tablet ORAL Tablet Phenytoin Dilantin - 08/07/2017 1 ORAL completed Dilantin [facility] sodium 100 MG 100 MG 12:00:00 AM Capsule - 100 MG [facility] Extended ORAL EDT ORAL Hospital Release Oral Capsule, Capsule, Capsule Extended Extended [Dilantin] Release Release atorvastatin 40 Atorvastat 08/07/2017 1 Tablet ORAL complete d Atorvasta [facility] MG Oral Tablet in Calcium 12:00:00 AM tin [facility] - 40 MG EDT Calcium - Hospita l ORAL 40 MG Tablet ORAL Tablet aripiprazole 15 Abilify - 08/07/2017 1 Tablet ORAL completed Abilify - [facility] MG Oral Tablet 15 MG ORAL 12:00:00 AM 15 MG [facility] [Abilify] Tablet EDT ORAL Hospital Tablet Phenobarbital PHENobarbi 08/07/2017 1 Tablet ORAL completed PHENobarb [facility] 60 MG Oral bradnon - 60 12:00:00 AM kerry l - 60 [facility] Tablet MG ORAL EDT MG ORAL Hospita l Tablet Tablet Haloperidol 08/07/2017 100 INTRAM completed Haloperid [facility] Decanoate - 100 12:00:00 AM Milligra USCULA ol [facility] MG/1 ML EDT m [facility] INTRAMUSCULAR - 100 Oil MG/1 ML INTRAMUSC ULAR Oil benztropine Benztropin 08/07/2017 1 Tablet ORAL completed Benztropi [facility] mesylate 1 MG e Mesylate 12:00:00 AM ne [facility] Oral Tablet - 1 MG EDT Mesylate Ho spital ORAL - 1 MG Tablet ORAL Tablet Naltrexone 112 Vivitrol - 08/07/2017 380 INTRAM completed Vivitrol [facility] MG/ML 380 MG 12:00:00 AM Milligra USCULA - 38 0 MG [facility] Injectable INTRAMUSCU EDT m R INTRAMUS C Hospital Suspension LAR Powder ULAR [Vivitrol] for Powder Suspension for , Extended Suspensio Release n, Extended Release Phenytoin Phenytoin 07/18/2017 CAP 300 mg ORAL completed [facility] sodium 100 MG 05:42:00 AM SUL [facility] Extended EDT E Hospital Release Oral Capsule [Dilantin] Phenytoin Phenytoin 07/18/2017 CAP 300 mg ORAL completed [facility] sodium 100 MG 05:42:00 AM SUL [facility] Extended EDT E Hospital Release Oral Capsule [Dilantin] Phenytoin Phenytoin 07/18/2017 CAP 300 mg ORAL completed [facility] sodium 100 MG 05:42:00 AM SUL [facility] Extended EDT E Hospital Release Oral Capsule [Dilantin] clopidogrel 75 Clopidogre 03/29/2017 TAB 75 mg ORAL completed [facility] MG Oral Tablet l 11:31:00 AM LET [facility] [Plavix] Bisulfate EST Hospit al Clopidogrel Bisulfate atorvastatin 10 Atorvastat 03/29/2017 TAB 10 mg ORAL completed [facility] MG Oral Tablet in Calcium 11:31:00 AM LET [facility] [Lipitor] [facility] Atorvastatin Calcium clopidogrel 75 Clopidogre 03/29/2017 TAB 75 mg ORAL completed [facility] MG Oral Tablet l 11:31:00 AM LET [facility] [Plavix] Bisulfate EST Hospit al Clopidogrel Bisulfate atorvastatin 10 Atorvastat 03/29/2017 TAB 10 mg ORAL completed [facility] MG Oral Tablet in Calcium 11:31:00 AM LET [facility] Atorvastatin Calcium atorvastatin 10 Atorvastat 03/29/2017 TAB 10 mg ORAL completed [facility] MG Oral Tablet in Calcium 11:31:00 AM LET [facility] Atorvastatin Calcium clopidogrel 75 Clopidogre 03/29/2017 TAB 75 mg ORAL completed [facility] MG Oral Tablet l 11:31:00 AM LET [facility] [Plavix] Bisulfate EST Hospit al Clopidogrel Bisulfate benztropine Benztropin 03/23/2017 1 Tablet ORAL completed Benztropi [facility] mesylate 1 MG e Mesylate 12:00:00 AM ne [facility] Oral Tablet - 1 MG EST Mesylate Ho spital ORAL - 1 MG Tablet ORAL Tablet Hydroxyzine hydrOXYzin 03/23/2017 1 Tablet ORAL completed hydrOXYzi [facility] Hydrochloride e HCl - 50 12:00:00 AM ne HCl - [facility] 50 MG Oral MG ORAL EST 50 MG Hospi [facility]on Tablet Tablet ORAL Tablet Sertraline 100 Sertraline 03/23/2017 1 Tablet ORAL completed Sertralin [facility] MG Oral Tablet HCl - 100 12:00:00 AM e HCl - [facility] MG ORAL EST 100 MG Hospital Tablet ORAL Tablet Haloperidol 03/07/2017 100 INTRAM completed Hal[facility]id [facility] - 100 12:00:00 AM [facility] MG/1 ML EST [facility] - 100 Oil MG/1 ML INTRAMUSC ULAR Oil Hydrochlorothia hydrochlor 03/02/2017 1.00 ORAL active take 1 NEXTGEN zide 25 MG Oral othiazide 12:00:00 AM {tbl} tablet by ([facility] Tablet [address] hydrochlorothia tablet route M edical zide 25 mg every day Cent er) tablet Hydroxyzine hydrOXYzin 03/01/2017 1 Tablet ORAL completed hydrOXYzi [facility] Hydrochloride e HCl - 50 12:00:00 AM ne HCl - [facility] 50 MG Oral MG ORAL EST 50 MG [facility] Tablet Tablet ORAL Tablet benztropine benztropin 03/01/2017 1.00 ORAL active take 1 NEXTGEN mesylate 1 MG e 1 mg 12:00:00 AM {tbl} t ablet by ([facility] Oral Tablet tablet EST oral Ed s benztropine 1 route 2 Med ical mg tablet times Center) every day benztropine Benztropin 03/01/2017 1 Tablet ORAL completed Benztropi [facility] mesylate 1 MG e Mesylate 12:00:00 AM ne [facility] Oral Tablet - 1 MG EST Mesylate Ho [facility]ital ORAL - 1 MG Tablet ORAL Tablet Sertraline 50 Zoloft 50 03/01/2017 1.00 ORAL active Sertralin NEXTGEN MG Oral Tablet mg tablet 12:00:00 AM {tbl} e 50 MG ([facility] [Zoloft] Zoloft EST Oral phs 50 mg tablet Tablet Medic al [Zoloft] Center) Hydroxyzine Vistaril 03/01/2017 1 ORAL active H ydroxyzi NEXTGEN Pamoate 50 MG 50 mg 12:00:00 AM {capsule ne ([facility] Oral Capsule capsule EST } Pamoate [facility] [Vistaril] 50 MG Medical Vistaril 50 mg Oral Cente r) capsule Capsule [Vistaril ] Haldol 1 ML 03/01/2017 1.00 mL INTRAM active 1 ML NEXTGEN Dec[facility] 100 haloperido 12:00:00 AM [facility] haloperid ([facility] mg/mL l EST R ol Ct intramuscular decanoate decano ate Medical solution 100 MG/ML 100 MG/ML C enter) Injection Injection [Haldol] [Haldol] Sertraline 50 Sertraline 03/01/2017 1 Tablet ORAL completed Sertralin [facility] Oral Tablet - 50 MG 12:00:00 AM e - 50 MG [facility] ORAL EST ORAL [facility] Tablet Tablet olanzapine OLANZapine 11/09/2015 1 [id number] completed OLANZapine 5 mg oral tablet; 1 tab(s) orally 2 times a day Ordered: 09-Nov-2015 Start: 09-Nov-2015 [facility] 5 MG Oral 5 mg oral 06:07:58 AM {tab(s)} Quantity: 60 Aquilino Gresham Status: No Longer Active Health Tablet tablet EDT Refills: 0 Generic Substitution Allowed System OLANZapine Comm ents: It is very important that you take or use this exactly as directed. Do not skip doses or discontinue unless directed by your doctor.May cause drowsiness. Alcohol may intensify this effect. Use care w 5 mg oral tablet It is very important that you take or us e this exactly as directed. Do not skip doses or discontinue unless directed by your doctor.May cause drowsiness. Alcohol may intensify this effect. Use care whe n operating dangerous machinery.Obtain medical advice before taking any non-pre scription drugs as some may affect the action of this medication. Levetiracetam Keppra 11/09/2015 1 [id number] completed Keppra [facility] 1000 MG Oral 1000 mg 06:06:51 AM {tab(s)} Health Tablet [Keppra] oral EDT Syst em Keppra 1000 mg tablet oral tablet Check with your doctor before becoming p regnant.It is very important that you take or use this exactly as directed. Do not sk ip doses or discontinue unless directed by your doctor.May cause drowsiness or dizz iness.Obtain medical advice before taking any non-prescription drugs as some may affec t the action of this medication.Swallow whole. Do not crush.This drug may impai r the ability to drive or operate machinery. Use care until you become familiar with its effects. Percocet 06/18/2015 1 [id number] completed Percocet 5/325; 1 orally every 6 hours, As Needed - PRN PAIN Ordered: 18-Jun-2015 Start: 18-Jun-2015 [facility] 5/325 11:08:20 PM Quantity: 16 Aquilino Gresham Status: No Longer Active Health EDT Refills: 0 System Brompheniramine Maleate 0.2 MG/ML / brompheniramine/dextromethorphan/pseudoephedrine 05/01/2015 5 [id number] aborted Bromaline [facility] Dextromethorphan Hydrobromide 1 MG/ML / 1 mg-5 mg-15 mg/5 mL oral liquid 08:02:50 PM mL DM Healt h Pseudoephedrine Hydrochloride 3 MG/ML Oral EST System Solution brompheniramine/dextromethorphan/pseudoephedrine 1 mg-5 mg-15 mg/5 mL oral liquid Levetiracetam 1000 MG Oral Tablet [Keppra] Keppra Ke[facility] 100 0 mg oral tablet 05/01/2015 1 [id number] aborted Keppra Jono savi 1000 mg oral tablet 08:00:30 PM {ta Health EST b(s System )} Check with your doctor before becoming p regnant.It is very important that you take or use this exactly as directed. Do not sk ip doses or discontinue unless directed by your doctor.May cause drowsiness or dizz iness.Obtain medical advice before taking any non-prescription drugs as some may affec t the action of this medication.Swallow whole. Do not crush.This drug may impai r the ability to drive or operate machinery. Use care until you become familiar with its effects. Phenobarbital PHENobarbital 05/01/2015 1 [id number] aborted Phenobarbital [facility] 64.8 MG Oral 64.8 mg oral 07:59:51 PM {tab(s)} Health Tablet tablet EST System PHENobarbital 64.8 mg oral tablet Caution federal law prohibits the transf er of this drug to any person other than the person for whom it was prescribed.Do not drink alcoholic beverages when taking this medication.Do not take this drug if you are .May cause drowsiness. Alcohol may intensify this effect. Use care whe n operating dangerous machinery.Obtain medical advice before taking any non-pre scription drugs as some may affect the action of this medication. Phenobarbital PHENobarbital 04/23/2015 1 [id number] aborted Phenobarbital [facility] 64.8 MG Oral 64.8 mg oral 08:04:46 PM {tab(s)} Health Tablet tablet EST System PHENobarbital 64.8 mg oral tablet Levetiracetam levETIRAcetam 04/23/2015 1 [id number] aborted LevETIRAcetam [facility] 1000 MG Oral 1000 mg oral 08:04:29 PM {tab(s)} Health Tablet tablet EST System levETIRAcetam 1000 mg oral tablet Phenytoin phenytoin 200 04/23/2015 1 [id number] aborted Phenytek [facility] sodium 200 MG mg oral 12:00:00 AM {cap(s)} Health Extended capsule, EST System Release Oral extended Capsule release phenytoin 200 mg oral capsule, extended release tramadol traMADol 50 mg 04/20/2015 1 [id number] complete TraMADOL [facility] hydrochloride oral tablet 08:35:33 PM {tab(s)} d Hydrochloride Health 50 MG Oral EST System Tablet traMADol 50 mg oral tablet Caution federal law prohibits the transf er of this drug to any person other than the person for whom it was prescribed.May ca use drowsiness. Alcohol may intensify this effect. Use care when operating [employer]ung[employer].Obtain medical advice before taking any non-prescription drugs as dana e may affect the action of this medication. clopidogrel clopidogrel 12/16/2014 1 [id number] completed Clopidogrel [facility] 75 MG Oral 75 mg oral 09:01:00 PM {tab(s)} Bisulfate Health Tablet tablet EDT System clopidogrel 75 mg oral tablet Escitalopram escitalopram 12/16/2014 1 [id number] aborted Escitalopram [facility] 10 MG Oral 10 mg oral 08:59:32 PM {tab(s)} Oxalate Health Tablet tablet EDT System escitalopram 10 mg oral tablet Phenytoin phenytoin 12/16/2014 1 [id number] completed Phenytek [facility] sodium 200 200 mg oral 08:58:21 PM {cap(s)} Health MG Extended capsule, EDT Syst em Release Oral extended Capsule release phenytoin 200 mg oral capsule, extended release 200 ACTUAT ProAir HFA 11/26/2014 2 [id number] aborted ProAir HFA 90 mcg/inh inhalation aerosol; 2 puff(s) inhaled every 4 hours, As Needed - PRN WHEEZING Ordered: 26-Nov-2014 Start: 26-Nov-2014 [facility] Albuterol 90 mcg/inh 10:48:48 PM {puff(s)} Quantity: 1 Ericka Arya Status: Discontinued Health 0.09 inhalation EDT Refills: 0 Generic Substitution Allowed System MG/ACTUAT aerosol Co mments: For inhalation only.It is very important that you take or use this exactly as directed. Do not skip doses or discontinue unless directed by your doctor.Obtain medical advice before taking any non-presc Metered Dose Inhaler [ProAir] ProAir HFA 90 mcg/inh inhalation aerosol For inhalation only.It is very important that you take or use this exactly as directed. Do not skip doses or disconti nue unless directed by your doctor.Obtain medical advice before taking any non-pre scription drugs as some may affect the action of this medication.Shake well before use . Plavix 11/21/2014 75 [id number] aborted Plavix; 75 milligram(s) orally once a day Ordered: 21-Nov-2014 Start: 21-Nov-2014 End: 21-Dec-2014 [facility] 06:10:30 PM mg Quantity: 30 Dustin Dawkins Status: Discontinued Health EDT Refills: 0 System Multivitamin Multiple 11/21/2014 1 [id number] aborted One Tab [facility] preparation Vitamins 06:09:26 PM {tab(s)} Daily Health Multiple oral EDT System Vitamins oral tablet tablet Thiamine 100 thiamine 11/21/2014 1 [id number] aborted Vitamin [facility] MG Oral Tablet 100 mg 06:08:48 PM {tab(s)} B1 Health thiamine 100 oral EDT System mg oral tablet tablet Acetaminophen Percocet 11/07/2014 1 [id number] aborted Percocet 5/325; 1 tab(s) every 8 hours, As Needed - PRN PAIN caution sedating and constipating Ordered: 07-Nov-2014 Start: 07-Nov-2014 [facility] 325 MG / 5/325 11:22:14 AM {tab(s)} Geovani tity: 12 Kelly Ledesma Status: Discontinued Health Hydrocodone EDT Refills: 0 System Bitartrate 5 MG Oral Tablet Percocet 5/325 Acetaminophen Percocet 10/18/2014 1 [id number] complete Percocet 5/325; 1 tab(s) every 4 hours, As Needed - PRN SEVERE PAIN caution sedating and constipating Ordered: 18-Oct-2014 Start: 18-Oct-2014 End: 20-Oct-2014 [facility] 325 MG / 5/325 06:21:52 AM {tab(s)} d Geovani tity: 12 Arya Barnett Status: No Longer Active Health Hydrocodone EDT Refills: 0 System Bitartrate 5 MG Oral Tablet Percocet 5/325 Acetaminophen 325 MG / acetaminophen-oxyCODONE 10/15/2014 1 [id number] completed Acetaminophen-OxyCODONE [facility] Oxycodone Hydrochloride 325 mg-5 mg oral tablet 01:17:20 AM {tab(s)} Hydrochloride Health 5 MG Oral Tablet EDT Sys tem acetaminophen-oxyCODONE 325 mg-5 mg oral tablet Caution federal law prohibits the transf er of this drug to any person other than the person for whom it was prescribed.June use drowsiness. Alcohol may intensify this effect. Use care when operating [employer] machinery.This prescription cannot be refilled.This product contains acetamino phen. Do not use with any other product containing acetaminophen to prevent poss ible liver damage.Using more of this medication than prescribed may cause ser ious breathing problems. Thiamine thiamine 09/19/2014 1 [id number] completed thiamine 100 mg oral tablet; 1 tab(s) orally once a day Ordered: 19-Sep-2014 Start: 19-Sep-2014 [facility] 100 MG 100 mg 09:52:42 PM {tab(s)} Quant ity: 0 Torie Barron Status: No Longer Active Health Oral oral EDT Refills: 0 System Tablet tablet thiamine 100 mg oral tablet Folic folic 09/19/2014 1 [id number] completed folic acid 1 mg oral tablet; 1 tab(s) orally once a day Ordered: 19-Sep-2014 Start: 19-Sep-2014 [facility] Acid 1 MG acid 1 mg 09:52:25 PM {tab(s)} Quantity: 0 Torie Barron Status: No Longer Active Health Oral oral EDT Refills: 0 System Tablet tablet folic acid 1 mg oral tablet clopidogr clopidogr 09/19/2014 1 [id number] completed clopidogrel 75 mg oral tablet; 1 tab(s) orally once a day Ordered: 19-Sep-2014 Start: 19-Sep-2014 [facility] el 75 MG el 75 mg 09:52:07 PM {tab(s)} Q uantity: 0 Torie Barron Status: No Longer Active Health Oral oral EDT Refills: 0 System Tablet tablet clopidogr el 75 mg oral tablet atorvasta atorvasta 09/19/2014 1 [id number] completed atorvastatin 80 mg oral tablet; 1 tab(s) orally once a day Ordered: 19-Sep-2014 Start: 19-Sep-2014 [facility] tin 80 MG tin 80 mg 09:51:55 PM {tab(s)} Quantity: 0 Torie Barron Status: No Longer Active Health Oral oral EDT Refills: 0 System Tablet tablet atorvasta tin 80 mg oral tablet Phenytoin phenytoin 09/19/2014 1 [id number] completed phenytoin 200 mg oral capsule, extended release; 1 cap(s) orally every 8 hours Ordered: 19-Sep-2014 Start: 19-Sep-2014 [facility] sodium 200 mg 09:51:43 PM {cap(s)} Quant ity: 0 Beatrice Torie Status: No Longer Active Health 200 MG oral EDT Refills: 0 System Extended capsule, Release extended Oral release Capsule phenytoin 200 mg oral capsule, extended release Levetirac levETIRAc 09/19/2014 1 [id number] completed levETIRAcetam 1000 mg oral tablet; 1 tab(s) orally 2 times a day Ordered: 19-Sep-2014 Start: 19-Sep-2014 [facility] etam 1000 etam 1000 01:59:38 PM {tab(s)} Quantity: 0 Beatrice Torie Status: No Longer Active Health MG Oral mg oral EDT Refills: 0 System Tablet tablet levETIRAc etam 1000 mg oral tablet Acetamino acetamino 09/19/2014 1 [id number] completed acetaminophen 650 mg rectal suppository; 1 suppository(ies) rectal every 6 hours, As needed, Mild Pain (1-3) or Temp > 101 Ordered: 19-Sep-2014 Start: 19-Sep-2014 [facility] phen 650 phen 650 01:51:14 PM {SUPP(s)} Quantity: 0 Torie Barron Status: No Longer Active Health MG Rectal mg rectal EDT Refills: 0 System Supposito supposito ry ry acetamino phen 650 mg rectal supposito ry atorvastatin atorvastatin 09/19/2014 1 [id number] aborted Lipitor [facility] 80 MG Oral 80 mg oral 01:50:48 PM {tab(s)} Health Tablet tablet EDT System atorvastatin 80 mg oral tablet clopidogrel clopidogrel 09/19/2014 1 [id number] aborted Clopidog [facility] 75 MG Oral 75 mg oral 01:50:22 PM {tab(s)} rel Health Tablet tablet EDT Bisulfat System clopidogrel e 75 mg oral tablet Phenobarbital PHENobarbital 09/19/2014 1 [id number] comp leted PHENobarbital 64.8 mg oral tablet; 1 tab(s) orally 2 times a day Ordered: 19-Sep-2014 Sta rt: 19-Sep-2014 [facility] 64.8 MG Oral 64.8 mg oral 01:47:02 PM {tab(s)} Quantity: 0 Torie Barron Status: No Longer Active Health Tablet tablet EDT Refills: 0 System PHENobarbital 64.8 mg oral tablet atorvastatin atorvastatin 09/19/2014 1 [id number] aborted Lipitor [facility] 80 MG Oral 80 mg oral 12:00:00 AM {tab(s)} Health Tablet tablet EDT System atorvastatin 80 mg oral tablet Acetaminophen acetaminophen 09/19/2014 1 [id number] abor beatriz acetaminophen 650 mg rectal suppository; 1 suppository(ies) rectal every 6 hours, As Needed, Mild Pain (1-3) or Temp > 101 , As needed, Mild Pain (1-3) or Temp > 101 Ordered: 19-Sep-2014 Start: 19-Sep-2014 End: 26-Sep-2014 [facility] 650 MG Rectal 650 mg rectal 12:00:00 AM {SUPP(s)} Quantity: 28 Torie Barron Status: Discontinued Health Suppository suppository EDT Refill s: 0 System acetaminophen 650 mg rectal suppository Multivitamin Multiple 09/19/2014 1 {tab(s)} [id number] compl ete Multiple Vitamins oral tablet; 1 tab(s) orally once a day Ordered: 19-Sep-2014 Start : 19-Sep-2014 [facility] preparation Vitamins oral 12:00:00 AM d Quantity: 0 Torie Barron Status: No Longer Active Health Multiple tablet EDT Refills: 0 System Vitamins oral tablet Phenobarbital PHENobarbital 09/19/2014 1 [id number] aborted Phenobarbital [facility] 64.8 MG Oral 64.8 mg oral 12:00:00 AM {tab(s)} Health Tablet tablet EDT System PHENobarbital 64.8 mg oral tablet Phenytoin phenytoin 200 09/19/2014 1 [id number] aborted Phenytek [facility] sodium 200 MG mg oral 12:00:00 AM {cap(s)} Health Extended capsule, EDT System Release Oral extended Capsule release phenytoin 200 mg oral capsule, extended release Levetiracetam levETIRAcetam 09/19/2014 1 [id number] aborted LevETIRAcetam [facility] 1000 MG Oral 1000 mg oral 12:00:00 AM {tab(s)} Health Tablet tablet EDT System levETIRAcetam 1000 mg oral tablet Folic Acid 1 folic acid 1 09/19/2014 1 [id number] aborted Folic Acid [facility] MG Oral Tablet mg oral tablet 12:00:00 AM {tab(s)} Health folic acid 1 EDT System mg oral tablet Thiamine 100 thiamine 100 09/19/2014 1 [id number] aborted Vitamin B1 [facility] MG Oral Tablet mg oral tablet 12:00:00 AM {tab(s)} Health thiamine 100 EDT System mg oral tablet Folic Acid 1 folic acid 1 09/19/2014 1 [id number] aborted Folic Acid [facility] MG Oral Tablet mg oral tablet 12:00:00 AM {tab(s)} Health folic acid 1 EDT System mg oral tablet Levetiracetam levETIRAcetam 09/19/2014 1 [id number] aborted LevETIRAcetam [facility] 1000 MG Oral 1000 mg oral 12:00:00 AM {tab(s)} Health Tablet tablet EDT System levETIRAcetam 1000 mg oral tablet Multivitamin Multiple 09/19/2014 1 [id number] aborted One Tab Daily [facility] preparation Vitamins oral 12:00:00 AM {tab(s)} Health Multiple tablet EDT System Vitamins oral tablet Thiamine 100 thiamine 100 09/19/2014 1 [id number] aborted Vitamin B1 [facility] MG Oral Tablet mg oral tablet 12:00:00 AM {tab(s)} Health thiamine 100 EDT System mg oral tablet Phenytoin phenytoin 200 09/19/2014 1 [id number] aborted Phenytek [facility] sodium 200 MG mg oral 12:00:00 AM {cap(s)} Health Extended capsule, EDT System Release Oral extended Capsule release phenytoin 200 mg oral capsule, extended release clopidogrel 75 clopidogrel 75 09/19/2014 1 [id number] aborted Clopidogrel [facility] MG Oral Tablet mg oral tablet 12:00:00 AM {tab(s)} Bisulfate Health clopidogrel 75 EDT Syste m mg oral tablet Diazepam 5 MG diazepam 5 mg 09/14/2014 1 [id number] complete Diazepam [facility] Oral Tablet oral tablet 01:26:44 AM {tab(s)} d Health diazepam 5 mg EDT System oral tablet Caution federal law prohibits the transf er of this drug to any person other than the person for whom it was prescribed.Do not take this drug if you are .May cause drowsiness. Alcohol may intensify this effect. Use care when operating dangerous machinery. Acetaminophen Percocet 09/14/2014 1 [id number] completed Percocet 5/325; 1 tab(s) every 8 hours, As Needed - PRN PAIN caution sedating and constipating Ordered: 14-Sep-2014 Start: 14-Sep-2014 End: 17-Sep-2014 [facility] 325 MG / 5/325 01:26:02 AM {tab(s)} Geovani tity: 12 Danae Saul Status: No Longer Active Health Hydrocodone EDT Refills: 0 System Bitartrate 5 MG Oral Tablet Percocet 5/325 Cyclobenzaprine cyclobenzaprine 09/08/2014 1 [id number] completed Cyclobenzaprine [facility] hydrochloride 10 10 mg oral 11:13:16 PM {tab(s)} Hydrochloride Health MG Oral Tablet tablet EDT Sys tem cyclobenzaprine 10 mg oral tablet May cause drowsiness. Alcohol may inten sify this effect. Use care when operating dangerous machinery.Obtain medical advic e before taking any non-prescription drugs as some may affect the action of this medic ation. Phenytoin Dilantin 09/08/2014 3 [id number] completed Dilantin [facility] sodium 100 100 mg 11:12:47 PM {cap(s)} Health MG Extended oral EDT System Release Oral capsule, Capsule extended [Dilantin] release Dilantin 100 mg oral capsule, extended release Do not drink alcoholic beverages when ta annie this medication.Do not take this drug if you are .It is very important th at you take or use this exactly as directed. Do not skip doses or discontinue unless directed by your doctor.May cause drowsiness. Alcohol may intensify this effect. Use care when operating dangerous machinery.Obtain medical advice before t aking any non-prescription drugs as some may affect the action of this medication. Phenytoin phenytoin 09/03/2014 1 {cap(s)} [id number] aborted Phenytek [facility] sodium 300 300 mg oral 05:12:13 AM Health MG Extended capsule, EDT Syst em Release extended Oral release Capsule phenytoin 300 mg oral capsule, extended release Do not drink alcoholic beverages when ta annie this medication.Do not take this drug if you are .It is very important th at you take or use this exactly as directed. Do not skip doses or discontinue unless directed by your doctor.May cause drowsiness. Alcohol may intensify this effect. Use care when operating dangerous machinery.Obtain medical advice before t aking any non-prescription drugs as some may affect the action of this medication. Phenytoin Phenytoin 07/10/2014 CAPSULE 100 ORAL completed White sodium 100 MG 11:07:00 AM mg [facility] Release Oral Capsule [Dilantin] Perphenazine Perphenazine 07/10/2014 TABLET 16 mg ORAL completed [facility] 16 MG Oral 11:07:00 AM [facility] Per[facility]azine Perphenazine 07/10/2014 TABLET 16 mg ORAL completed [facility] 16 MG Oral 11:07:00 AM [facility] Phenytoin Phenytoin 07/10/2014 CAPSULE 100 ORAL completed [facility] sodium 100 MG 11:07:00 AM mg [facility] Release Oral Capsule [Dilantin] Phenytoin Phenytoin 07/10/2014 CAPSULE 100 ORAL completed [facility] sodium 100 MG 11:07:00 AM mg [facility] Release Oral Capsule [Dilantin] Perphenazine Perphenazine 07/10/2014 TABLET 16 mg ORAL completed [facility] 16 MG Oral 11:07:00 AM [facility] Tylenol 06/24/2014 1 [id number] completed Tylenol with Codeine #3; 1 tab(s) orally 4 times a day Ordered: 24-Jun-2014 Start: 24-Jun-2014 End: 29-Jun-2014 [facility] with 12:52:46 PM {tab(s)} Quantity: 20 Pascale Tucker Status: No Longer Active Health Codeine EDT Refills: 0 System #3 Diclofenac diclofenac 08/08/2013 1 [id number] completed Diclofenac [facility] Sodium 50 sodium 50 02:27:51 PM {tab(s)} Sodium Health MG Delayed mg oral EDT System Release delayed Oral Tablet release diclofenac tablet sodium 50 mg oral delayed release tablet Do not take this drug if you are pregnan t.It is very important that you take or use this exactly as directed. Do not skip d oses or discontinue unless directed by your doctor.May cause drowsiness or dizziness .Obtain medical advice before taking any non-prescription drugs as some may affec t the action of this medication.Swallow whole. Do not crush.Take with food or m ilk. Metronidazole Flagyl 04/21/2013 1 [id number] completed Flagyl [facility] 250 MG Oral 250 mg 02:04:27 PM Health Tablet [Flagyl] oral EST Syst em Flagyl 250 mg tablet oral tablet Do not drink alcoholic beverages when ta annie this medication.Finish all this medication unless otherwise directed by prescriber.May discolor urine or feces. Ciprofloxacin Cipro 04/21/2013 1 [id number] completed Cipro 500 mg oral tablet; 1 orally 2 times a day x 7 days Ordered: 21-Apr-2013 Start: 21-Apr-2013 En d: 27-Apr-2013 [facility] 500 MG Oral 500 mg 02:04:06 PM Geovani tity: 14 Zahraa Wisdom Status: No Longer Active Health Tablet [Cipro] oral EST Refills: 0 Generic Substitution Allowed System Cipro 500 mg tablet Comments: Avoid prolonged or excessive exposure to direct and/or artificial sunlight while taking this medication.Check with your doctor before becoming .Do not take dairy products, antacids, or iron prep oral tablet Avoid prolonged or excessive exposure to direct and/or artificial sunlight while taking this medication.Check with your d octor before becoming .Do not take dairy products, antacids, or iron prepar ations within one hour of this medication.Finish all this medication un less otherwise directed by prescriber.Medication should be taken wi th plenty of water. Phenytoin Phenytek 04/14/2013 1 [id number] completed Phenytek [facility] sodium 300 300 mg 06:58:03 PM {cap(s)} Health MG Extended oral EST System Release Oral capsule, Capsule extended [Phenytek] release Phenytek 300 mg oral capsule, extended release Do not drink alcoholic beverages when ta annie this medication.Do not take this drug if you are .It is very important th at you take or use this exactly as directed. Do not skip doses or discontinue unless directed by your doctor.May cause drowsiness. Alcohol may intensify this effect. Use care when operating dangerous machinery.Obtain medical advice before t aking any non-prescription drugs as some may affect the action of this medication. Phenobarbital phenobarbital 04/14/2013 1 [id number] aborted Phenobarbital [facility] 60 MG Oral 60 mg oral 06:57:36 PM {cap(s)} Health Tablet tablet EST System phenobarbital 60 mg oral tablet Caution federal law prohibits the transf er of this drug to any person other than the person for whom it was prescribed.Do not drink alcoholic beverages when taking this medication.Do not take this drug if you are .May cause drowsiness. Alcohol may intensify this effect. Use care whe n operating dangerous machinery.Obtain medical advice before taking any non-pre scription drugs as some may affect the action of this medication. Phenobarbital PHENobarbital 0 [id number] completed PHENobarbital; orally Ordered: 18-Oct-2014 Status: No Longer Active [facility] PHENobarbital Quantity: 0 [employer] Refills: 0 System Dilantin 0 [id number] completed Dilantin; orally Ordered: 18-Oct-2014 Status: No Longer Active [facility] Quantity: 0 [employer] Refills: 0 System Plavix 0 [id number] completed Plavix; or ally Ordered: 18-Oct-2014 Status: No Longer Active [facility] Quantity: 0 [employer] Refills: 0 System Phenytoin Dilantin 100 30 [id number] completed Dilantin 100 mg oral capsule, extended release; 300 milligram(s) orally 3 times a day Ordered: 05-Sep-2013 Status: No Longer Active [facility] sodium 100 MG mg oral 0 Quantity : [facility] Extended capsule, mg Refills: 0 System Release Oral extended Capsule release [Dilantin] Dilantin 100 mg oral capsule, extended release Haloperidol TABLET 2 mg ORAL completed [facility] benztropine Benztropine TABLET 1 mg completed [place] mesylate 1 MG Mesylate Ho spital Oral Tablet Benztropine Mesylate Dilantin 0 [id number] active Dilantin Ord ered: 01-Feb-2019 [facility] Quantity: 0 [facility] System Refills: 0 Sertraline 100 Sertraline Hcl TABLET 100 mg ORAL completed [place] MG Oral Tablet [facility] [Zoloft] Sertraline Hcl benztropine Benztropine TABLET 1 mg completed [place] mesylate 1 MG Mesylate Ho spital Oral Tablet Benztropine Mesylate Percocet 0 [id number] completed Percocet 5/325; orally , As Needed Ordered: 14-Jan-2015 Status: No Longer Active [facility] 5/325 Quantity: 0 [employer] Refills: 0 System Haloperidol INJECTION 50 mg INTRAMUSCULAR completed [place] [facility] atorvastatin Atorvastatin TABLET 20 mg ORAL completed [facility] 20 MG Oral Calcium [facility] Tablet [facility] [Lipitor] Atorvastatin Calcium Dilantin completed [facility] Trazodone Hcl TABLET 150 ORAL completed [facility] Dilantin 0 [id number] completed Dilantin; orally 3 times a day Ordered: 14-Oct-2014 Status: No Longer Active [facility] Quantity: 0 Philippe Sara [facility] Refills: 0 System Phenobarbital PHENobarbital 1 [id number] completed Phenobarbital [facility] 97.2 MG Oral 97.2 mg oral {tab(s)} Health Tablet tablet System PHENobarbital 97.2 mg oral tablet Cogentin 0 completed Cogentin; injectable Ordered: 14-Oct-2014 Status: No Longer Active [facility] Quantity: 0 Paez Sara [facility] Refills: 0 System Levetiracetam Levetiracetam TABLET 1000 ORAL completed [facility] 1000 MG Oral mg [facility] Tablet [Keppra] Hosp ital benztropine Benztropine TABLET 2 mg ORAL completed [facility] mesylate [address] [facility] Benztropine Mesylate Levetiracetam Levetiracetam TABLET completed [facility] 1000 MG Oral [facility] Benztropine TABLET 1 mg ORAL completed [facility] Haloperidol INJECTION 50 mg INTRAMUSCULAR completed [facility] Phenobarbital Phenobarbital TABLET 97.2 ORAL completed [facility] 97.2 MG Oral mg [facility] Phenobarbital TABLET 90 mg ORAL completed [facility] Dilantin 200 [id number] aborted Dilantin; 2 00 orally 3 times a day Ordered: 11-May-2015 Status: Discontinued [facility] Quantity: [facility] Ref[facility]: 0 System Haloperidol UNSPECIFIED 100 [facility] Phenobarbital Phenobarbital TABLET 97.2 ORAL completed [facility] 97.2 MG Oral mg [facility] clopidogrel 75 Clopidogrel TABLET 75 mg completed [facility] MG Oral Tablet Bisulfate [facility] [Plavix] [facility] Clopidogrel Bisulfate atorvastatin 40 Atorvastatin TABLET 40 mg completed [facility] MG Oral Tablet Calcium Pl [facility]ins Atorvastatin Hospita l Calcium Cogentin 0 completed Cogentin; injectable Ordered: 18-Oct-2014 Status: No Longer Active [facility] Quantity: 0 Sara Paez [facility]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 EDT XR Chest Single AP view XR [facility]29/2014 [facility] Single [facility] view 10:48:00 AM System EDT - 07/29/2014 10:48:00 AM EDT Electrocardiographic 07/29/2014 [facility] procedure (procedure) 10:45:59 AM System EDT - 07/29/2014 12:01:00 PM EDT XR Lumbar Spine AP + Lateral 06/24/2014 [facility] XR Lumbar Spine AP + Lateral 11:20:00 AM System EDT - 06/24/2014 11:20:00 AM EDT XR Cervical Spine 2 or 3 06/24/2014 [facility] Views XR Cervical Spine 2 or 11:20:00 AM System 3 Views EDT - 06/24/2014 11:20:[address] Abdomen and Pelvis with IV 09/10/2013 [facility] and Oral Contrast & Recons CT 03:37:00 AM System Abdomen and Pelvis with IV EDT - and Oral Contrast & Recons 09/10/2013 03:37:00 AM EDT Urine Toxicology Screen 09/05/2013 [facility] 04:59:25 AM System EDT - 09/05/2013 07:00:00 AM EDT Electrocardiographic 09/05/2013 [facility] procedure (procedure) 12:09:18 AM System EDT - 09/05/2013 03:39:23 AM EDT Phenothiazines, Serum 09/05/2013 [facility] 12:09:18 AM System EDT - 09/05/2013 12:49:00 AM EDT Phenytoin Level, Serum 09/05/2013 [facility] 12:09:18 AM System EDT - 09/05/2013 12:49:00 AM EDT Alcohol Ethyl, Blood 09/05/2013 [facility] 12:09:18 AM System EDT - 09/05/2013 12:49:00 AM EDT Comprehensive Metabolic Panel 09/05/2013 [facility] 12:09:18 AM System EDT - 09/05/2013 12:49:00 AM EDT Complete Blood Count + 09/05/2013 [facility] Automated Diff 12:09:18 AM System EDT - 09/05/2013 12:49:00 AM EDT XR Chest Single AP view XR 09/05/2013 [facility] Chest Single AP view 12:09:00 AM System EDT - 09/05/2013 12:09:00 AM EDT Computerized axial tomography 08/12/2013 [facility] of brain (procedure) 12:08:00 AM System EDT - 08/12/2013 12:08:00 AM EDT XR Knee 3 Views-Right XR Knee 08/08/2013 [facility] 3 Views-Right 01:11:00 PM System EDT - 08/08/2013 01:11:00 PM EDT XR Pelvis SP Complete XR 08/08/2013 [facility] Pelvis SP Complete 01:11:00 PM System EDT - 08/08/2013 01:11:00 PM EDT XR Hip 2 Views-Right XR Hip 2 08/08/2013 [facility] Views-Right 01:11:00 PM System EDT - 08/08/2013 01:11:00 PM EDT Electrocardiographic 06/05/2013 [facility] procedure (procedure) 04:37:52 AM System EDT - 06/05/2013 04:49:44 AM EDT XR Chest PA and Left Lateral 06/05/2013 [facility] XR Chest PA and Left Lateral 04:37:00 AM System EDT - 06/05/2013 04:37:00 AM EDT Computerized axial tomography 04/23/2013 [facility] of brain (procedure) 06:52:00 PM System EST - 04/23/2013 06:52:[address] Knee Without Contrast-Left 03/23/2013 [facility] CT Knee Without Contrast-Left 01:51:00 AM System EST - 03/23/2013 01:51:00 AM EST Electrocardiographic 03/23/2013 [facility] procedure (procedure) 01:04:06 AM System EST - 03/23/2013 01:05:00 AM EST XR Knee 3 Views-Left XR Knee 03/23/2013 [facility] 3 Views-Left 01:04:00 AM System EST - 03/23/2013 01:04:00 AM EST XR Knee 4 Views-Left 03/23/2013 [facility] 01:04:00 AM System EST - 03/23/2013 01:38:43 AM EST Electrocardiographic 05/10/2012 [facility] procedure (procedure) 03:36:32 PM System EDT - 05/10/2012 03:42:00 PM EDT XR Chest Single AP view XR [facility]/10/2012 [facility] Single [facility] view 03:36:00 PM System EDT - 05/10/2012 03:36:00 PM EDT Electrocardiographic 01/06/2012 [facility] procedure (procedure) 12:44:07 PM System EST - 01/06/2012 12:50:00 PM EST XR Chest Single PA view 01/06/2012 [facility] 12:44:07 PM System EST - 01/06/2012 12:44:00 PM EST XR Chest Single AP view XR 01/06/2012 [facility] Single [facility] view 12:44:00 PM System EST - 01/06/2012 12:44:00 PM EST Electrocardiographic 11/22/2011 [facility] procedure (procedure) 01:53:35 PM System EDT - 11/22/2011 01:54:00 PM EDT XR Chest Single AP view XR [facility] Single [facility] view 01:53:00 PM System EDT - 11/22/2011 01:53:00 PM EDT Computerized axial tomography 11/17/2011 [facility] Digital [facility] of brain (procedure) 02:42:00 PM System EDT - 11/17/2011 02:42:00 PM EDT PHENobarbital Level, Serum 11/17/2011 [facility] 01:14:20 PM System EDT - 11/17/2011 01:50:00 PM EDT Urine Toxicology Screen 11/17/2011 [facility] 12:55:26 PM System EDT - 11/17/2011 01:50:00 PM EDT XR Forearm-[facility] 11:17:00 AM System EDT - 09/14/2011 11:17:00 AM EDT XR Elbow Complete-Left XR [facility]14/2011 [facility] Elbow Complete-Left 11:16:00 AM System EDT - 09/14/2011 11:16:00 AM EDT XR Humerus[facility] 11:16:00 AM System EDT - 09/14/2011 11:16:00 AM EDT XR Shoulder 2 Views-Left XR 09/14/2011 [facility] Shoulder 2 Views-Left 11:15:00 AM System EDT - 09/14/2011 11:15:00 AM EDT Urinalysis + Microscopic 09/10/2011 [facility] Examination 08:26:00 PM System EDT - 09/10/2011 08:40:00 PM EDT Activated Partial 09/10/2011 [facility] Thromboplastin Time 05:22:11 PM System EDT - 09/10/2011 05:44:00 PM EDT PT/INR 09/10/2011 [facility] 05:22:11 PM System EDT - 09/10/2011 05:44:00 PM EDT Comprehensive Metabolic Panel 09/10/2011 [facility] 05:22:11 PM System EDT - 09/10/2011 05:44:00 PM EDT Complete Blood Count No Diff 09/10/2011 [facility] 05:22:11 PM System EDT - 09/10/2011 05:44:00 PM EDT Computed tomography of 09/10/2011 [facility] abdomen (procedure) 05:22:00 PM System EDT - 09/10/2011 05:22:00 PM EDT Computed tomography of 09/06/2011 [facility] abdomen (procedure) 12:03:00 PM System EDT - 09/06/2011 12:03:00 PM EDT Toxicology Drug Screen Urine 08/25/2011 [facility] 12:11:00 AM System EDT - 08/25/2011 12:22:42 AM EDT Computed tomography of 08/24/2011 [facility] abdomen (procedure) 10:44:35 PM System EDT - 08/24/2011 11:05:08 PM EDT Computed tomography of 08/24/2011 [facility] abdomen (procedure) 10:44:00 PM System EDT - 08/24/2011 10:44:00 PM EDT XR Ribs-Right XR Ribs-Right 08/13/2011 [facility] 02:20:00 PM System EDT - 08/13/2011 02:20:00 PM EDT Computed tomography of 08/13/2011 [facility] abdomen (procedure) 02:20:00 PM System EDT - 08/13/2011 02:20:00 PM EDT XR Fluoroscopy < 1 Hr XR 08/11/2011 [facility] Fluoroscopy < 1 Hr 11:10:00 AM System EDT - 08/11/2011 11:10:00 AM EDT XR Chest Single AP view XR 08/10/2011 [facility] Chest Single AP view 09:24:00 AM System EDT - 08/10/2011 09:24:[address] Abdomen and Pelvis with IV 08/10/2011 [facility] and Oral Contrast & Recons CT 06:12:00 AM System Abdomen and Pelvis with IV EDT - and Oral Contrast & Recons 08/10/2011 06:12:00 AM EDT XR Ankle Complete 3 08/02/2011 [facility] Views-Left XR Ankle Complete 12:35:00 PM System 3 Views-Left EDT - 08/02/2011 12:35:[address] Abdomen and Pelvis with IV 06/26/2011 [facility] and Oral Contrast & Recons CT 01:01:00 AM System Abdomen and Pelvis with IV EDT - and Oral Contrast & Recons 06/26/2011 01:01:00 AM EDT XR Chest PA and Left Lateral 06/18/2011 [facility] XR Chest PA and Left Lateral 03:38:00 PM System EDT - 06/18/2011 03:38:00 PM EDT XR Chest Single AP view 06/18/2011 [facility] 03:38:00 PM System EDT - 06/18/2011 03:38:00 PM EDT Electroencephalogram 06/10/2011 [facility] (procedure) 07:00:00 AM System EDT - 06/10/2011 09:46:00 AM EDT Electrocardiographic 06/10/2011 [facility] procedure (procedure) 07:00:00 AM System EDT - 06/10/2011 08:30:00 AM EDT Creatine Kinase, Serum 06/09/2011 [facility] 03:49:00 PM System EDT - 06/09/2011 03:50:00 PM EDT Electrocardiographic 06/09/2011 [facility] procedure (procedure) 01:57:25 PM System EDT - 06/09/2011 03:48:00 PM EDT XR Chest Single AP view XR 06/09/2011 [facility] Chest Single AP view 09:36:00 AM System EDT - 06/09/2011 09:36:00 AM EDT Computerized axial tomography 06/09/2011 [facility] of brain (procedure) 09:36:00 AM System EDT - 06/09/2011 09:36:00 AM EDT Computed tomography of 2011 [facility] abdomen (procedure) 12:40:00 AM System EDT - 2011 12:40:00 AM EDT XR Foot AP + Lateral + 05/31/2011 [facility] Oblique-Left XR Foot AP + 03:17:00 AM Sy stem Lateral + Oblique-Left EDT - 05/31/2011 03:17:00 AM EDT XR Ankle Complete 3 05/31/2011 [facility] Views-Left XR Ankle Complete 03:17:00 AM System 3 Views-Left EDT - 05/31/2011 03:17:00 AM EDT XR Wrist 2 Views Post 05/20/2011 [facility] Reduction-Left 07:58:04 AM System EDT - 05/20/2011 08:20:59 AM EDT XR Wrist Min. 3 Views Left XR 05/20/2011 [facility] Wrist Min. 3 Views Left 07:58:00 AM Syst em EDT - 05/20/2011 07:58:00 AM EDT XR Wrist 2 Views Post 05/20/2011 [facility] Reduction-Right 07:57:37 AM System EDT - 05/20/2011 08:20:09 AM EDT XR Wrist Min 3 Views Right XR 05/20/2011 [facility] Wrist Min 3 Views Right 07:57:00 AM Syst em EDT - 05/20/2011 07:57:00 AM EDT US Pelvis Transvaginal [facility]/19/2011 [facility]aginal 03:14:00 PM System EDT - 05/19/2011 03:14:00 PM EDT US OB Transvaginal 05/19/2011 [facility] 01:39:26 PM System EDT - 05/19/2011 01:39:00 PM EDT US Pelvis Non-obstetric US 05/19/2011 [facility] Pelvis Non-obstetric 01:39:00 PM System EDT - 05/19/2011 01:39:00 PM EDT Computerized axial tomography 05/18/2011 [facility] brain (procedure) 07:02:00 PM System EDT - 05/18/2011 07:02:00 PM EDT Electrocardiographic 05/18/2011 [facility] procedure (procedure) 04:03:04 PM System EDT - 05/18/2011 04:22:00 PM EDT XR Chest Single AP view XR [facility]2011 [facility] view 04:03:00 PM System EDT - 05/18/2011 04:03:00 PM EDT Creatine Kinase, Serum 05/13/2011 [facility] 07:25:00 AM System EDT - 05/13/2011 07:26:00 AM EDT Computerized axial tomography 05/13/2011 [facility] brain (procedure) 07:24:00 AM System EDT - 05/13/2011 07:24:00 AM EDT Electroencephalogram 05/13/2011 [facility] Guardian (procedure) 12:16:00 AM System EDT - 05/13/2011 09:00:00 AM EDT Electrocardiographic 05/12/2011 [facility] procedure (procedure) 09:42:33 PM System EDT - 05/12/2011 11:09:00 PM EDT XR Chest Single AP view XR 05/12/2011 [facility] Chest Single AP view 09:42:00 PM System EDT - 05/12/2011 09:42:00 PM EDT Toxicology Drug Screen Urine 05/02/2011 [facility] 02:43:00 AM System EDT - 05/02/2011 02:45:08 AM EDT US Pelvis Transvaginal US 05/01/2011 [facility] Pelvis Transvaginal 10:41:00 PM System EDT - 05/01/2011 10:41:00 PM EDT US Pelvis Non-obstetric US 05/01/2011 [facility] Pelvis Non-obstetric 10:10:00 PM System EDT - 05/01/2011 10:10:00 PM EDT Toxicology Drug Screen Urine 04/11/2011 [facility] 04:54:00 PM System EST - 04/11/2011 05:43:35 PM EST Computerized axial tomography 04/07/2011 [facility] of brain (procedure) 04:10:00 PM System EST - 04/07/2011 04:10:00 PM EST XR Chest Single AP view XR 03/29/2011 [facility] Chest Single AP view 10:51:00 PM System EST - 03/29/2011 10:51:00 PM EST Electrocardiographic 03/29/2011 [facility] procedure (procedure) 10:51:00 PM System EST - 03/29/2011 11:31:00 PM EST XR Spine Thoracolumbar 03/11/2011 [facility] Standing 12:19:53 PM System EST - 03/11/2011 12:39:38 PM EST XR Lumbar Spine AP + Lateral 03/11/2011 [facility] Rad Image 12:19:00 PM System EST - 03/11/2011 12:19:00 PM EST XR Chest Single AP view XR 03/08/2011 [facility] Chest Single AP view 07:33:00 AM System EST - 03/08/2011 07:33:00 AM EST XR Chest Single PA view 03/08/2011 [facility] 03:17:26 AM System EST - 03/08/2011 08:09:41 AM EST PHENobarbital Level, Serum 03/08/2011 [facility] 02:07:24 AM System EST - 03/08/2011 08:27:00 AM EST Urinalysis + Microscopic 03/07/2011 [facility] Examination 11:17:22 PM System EST - 03/08/2011 01:13:00 AM EST RN Collect Electrocardiographic procedure 03/07/2011 11:17:22 PM [facility] (procedure) EST - 03/07/2011 System 11:19:39 PM EST Toxicology Drug Screen Urine 03/07/2011 11:17:00 PM [facility] EST - 03/07/2011 System 11:15:00 PM EST Computerized axial tomography of 03/01/2011 11:15:00 A M [facility] brain (procedure) EST - 03/01/2011 System 11:15:00 AM EST PHENobarbital Level, Serum 02/28/2011 11:34:07 AM [facility] EST - 02/28/2011 System 12:15:00 PM EST XR Chest PA and Left Lateral XR 02/25/2011 12:51:00 PM [facility] Chest PA and Left Lateral EST - 02/25/2011 System 12:51:00 PM EST XR Lumbar Spine AP + Lateral XR 02/25/2011 12:46:00 PM [facility] Lumbar Spine AP + Lateral EST - 02/25/2011 System 12:46:00 PM EST Urine Test POCT 02/24/2011 07:52:00 PM [facility] EST - 02/24/2011 System 07:53:00 PM EST XR Chest Single AP view XR Chest 02/24/2011 07:46:00 P M [facility] Single AP view EST - 02/24/2011 System 07:46:00 PM EST Electrocardiographic procedure 02/24/2011 03:32:53 PM [facility] (procedure) EST - 02/24/2011 System 03:46:00 PM EST Computerized axial tomography of 02/24/2011 03:32:00 P M [facility] brain (procedure) EST - 02/24/2011 System 03:32:00 PM EST Computerized axial tomography of 02/07/2011 06:15:00 P M [facility] brain (procedure) EST - 02/07/2011 System 06:15:00 PM EST LevETIRAcetam Level, Serum 02/05/2011 06:00:00 AM [facility] EST - 02/05/2011 System 05:50:00 AM EST LevETIRAcetam Level, Serum 02/03/2011 06:00:00 AM [facility] EST - 02/03/2011 System 06:45:00 AM EST Electroencephalogram (procedure) 02/02/2011 05:11:00 P M [facility] EST - 02/04/2011 System 10:00:00 AM EST Echocardiography, real-time with 02/02/2011 11:48:00 A M [facility] image documentation with M-mode EST - 02/04/2011 System recording, complete (procedure) 10:30:00 AM EST Anti-DNA DS 02/02/2011 06:00:00 AM [facility] - 02/02/2011 System 07:00:00 AM EST C>4< complement assay (procedure) 02/02/2011 06:00:00 AM [facility] - 02/02/2011 System 07:00:00 AM EST Complement C3 fragment measurement 02/02/2011 06:00:00 AM [facility] (procedure) EST - 02/02/2011 System 07:00:[address] Abdomen With Oral Contrast Only 02/01/2011 01:20:00 AM [facility] + Recons CT Abdomen With Oral EST - 02/01/2011 System Contrast Only + Recons 01:20:00 AM EST US Abdomen Complete US Abdomen 01/31/2011 06:56:00 PM [facility] Complete EST - 01/31/2011 System 06:56:00 PM EST Electrocardiographic procedure 01/31/2011 03:21:05 PM [facility] (procedure) EST - 01/31/2011 System 03:26:43 PM EST XR Chest Single AP view XR Chest 01/31/2011 03:21:00 P M [facility] Single AP view EST - 01/31/2011 System 03:21:00 PM EST Computerized axial tomography of 01/31/2011 03:21:00 P [facility] brain (procedure) EST - 01/31/2011 System 03:21:00 PM EST MRI Brain without contrast MRI 01/19/2011 12:35:00 PM [facility] Brain without contrast EST - 01/19/2011 S ystem 12:35:00 PM EST Computerized axial tomography of 01/17/2011 07:22:08 A [facility] brain (procedure) EST - 01/17/2011 System 07:22:00 AM EST Electroencephalogram (procedure) 01/17/2011 07:00:00 A [facility] - 01/17/2011 System 02:44:00 PM EST Electrocardiographic procedure 01/17/2011 07:00:00 AM [facility] (procedure) EST - 01/17/2011 System 02:13:00 PM EST Electrocardiographic procedure 01/16/2011 06:44:37 PM [facility] (procedure) EST - 01/16/2011 System 06:55:00 PM EST XR Chest Single AP view XR Chest 01/16/2011 05:31:00 P [facility] Single AP view EST - 01/16/2011 System 05:31:00 PM EST Computed tomography of spine 01/16/2011 05:30:00 PM [facility] (procedure) EST - 01/16/2011 System 05:30:00 PM EST Computerized axial tomography of 01/16/2011 05:30:00 P [facility] brain (procedure) EST - 01/16/2011 System 05:30:00 PM EST Basic Metabolic Panel 01/07/2011 06:00:00 AM [facility] - 01/07/2011 System 06:00:00 AM EST Complete Blood Count No Diff 01/07/2011 06:00:00 AM [facility] - 01/07/2011 System 06:00:00 AM EST Cult Bacteria Blood 01/05/2011 08:05:00 AM [facility] - 01/05/2011 System 08:05:00 AM EST Computerized axial tomography of 01/04/2011 01:07:00 P [facility] brain (procedure) EST - 01/04/2011 System 01:07:00 PM EST Blood Typing (ABO + Rho D), Serum 01/04/2011 04:35:16 AM [facility] - 01/04/2011 System 04:51:[address] Abdomen and Pelvis with IV and 01/04/2011 04:35:00 AM [facility] Oral Contrast & Recons CT Abdomen EST - 01/04/2011 System and Pelvis with IV and Oral 04:35:00 AM EST Contrast & Recons US Pelvis Transvaginal 12/28/2010 12:40:00 PM [facility] EST - 12/28/2010 System 12:40:00 PM EST US Pelvis Non-obstetric US Pelvis 12/28/2010 12:00:00 AM [facility] Non-obstetric EST - 12/28/2010 System 12:00:00 AM EST US Doppler Carotid Bilateral 12/27/2010 02:43:00 PM [facility] EST - 12/27/2010 System 03:06:39 PM EST Echocardiography, real-time with 12/27/2010 02:42:00 P [facility] image documentation with M-mode EST - 12/28/2010 System recording, complete (procedure) 05:48:00 PM EST Electrocardiographic procedure 12/27/2010 07:00:00 AM [facility] (procedure) EST - 12/28/2010 System 02:12:00 PM EST US Doppler Carotid US Doppler 12/27/2010 02:38:00 AM [facility] Carotid Bilateral EST - 12/27/2010 System 02:38:[address] Abdomen and Pelvis with Oral 12/27/2010 02:06:00 A [facility] Contrast only & Recons CT Abdomen EST - 12/27/2010 System and Pelvis with Oral Contrast 02:06:00 AM EST only & Recons Computerized axial tomography of 12/27/2010 02:02:00 A [facility] brain (procedure) EST - 12/27/2010 System 02:02:00 AM EST XR Chest Single AP view XR Chest 12/27/2010 12:40:00 A [facility] Single AP view EST - 12/27/2010 System 12:40:00 AM EST Urinalysis + Microscopic 12/26/2010 09:37:54 PM [facility] Examination EST - 12/27/2010 System 07:34:00 PM EST MRI Head with + without Contrast 12/21/2010 10:19:00 A [facility] MRI Head with + without Contrast EDT - 12/21/2010 System 10:19:00 AM EDT Electroencephalogram (procedure) 12/20/2010 07:00:00 A [facility] EDT - 12/20/2010 System 02:36:00 PM EDT Electrocardiographic procedure 12/20/2010 07:00:00 AM [facility] (procedure) EDT - 12/20/2010 System 10:15:00 AM EDT Sedimentation Rate, Erythrocyte 12/20/2010 06:00:00 AM [facility] EDT - 12/20/2010 System 06:00:00 AM EDT Antinuclear antibody measurement 12/20/2010 06:00:00 A [facility] (procedure) EDT - 12/20/2010 System 06:00:00 AM EDT Basic Metabolic Panel 12/20/2010 06:00:00 AM [facility] EDT - 12/20/2010 System 06:00:00 AM EDT Complete Blood Count + Automated 12/20/2010 06:00:00 A [facility] Diff EDT - 12/20/2010 System 06:00:00 AM EDT Computerized axial tomography of 12/19/2010 05:19:00 P [facility] brain (procedure) EDT - 12/19/2010 System 05:19:00 PM EDT XR Chest Single AP view XR Chest 12/19/2010 05:18:00 P [facility] Single AP view EDT - 12/19/2010 System 05:18:00 PM EDT Toxicology Drug Screen Urine 12/19/2010 05:16:00 PM [facility] EDT - 12/19/2010 System 05:16:00 PM EDT Tissue Exam 12/10/2010 03:18:32 PM [facility] EDT - 12/10/2010 System 02:59:[address] Abdomen and Pelvis with Oral 12/09/2010 01:29:00 P [facility] Contrast only & Recons CT Abdomen EDT - 12/09/2010 System and Pelvis with Oral Contrast 01:29:00 PM EDT only & Recons CT Abdomen and Pelvis with IV and 12/09/2010 01:29:00 PM [facility] Oral Contrast & Recons EDT - 12/09/2010 S ystem 01:29:00 PM EDT with PO & IV contrast CT Abdomen and Pelvis with 12/09/2010 01:07:18 PM EDT - [facility] IV and Oral Contrast & 12/09/2010 02:11:44 PM EDT Recons Results ID Date Data Source [id number] 03/14/2019 09:15:00 PM EST [facility] System Name Value Range Interpretation Description Data Sup porting Code Source(s) Document(s ) Inter SEE TEXT see noteThis Normal (applies Interpretati on [facility] individual is to non-numeric Factor V. Health tionF negative (normal) for results) System actor the Factor VLeiden V. (R506Q) mutation in the Factor V gene.Increased risk of thrombophilia can be caused by avariety of genetic and non-genetic factors notscreened for by this assay.Marcie Rodas, Ph.D., FACMGDirector, Molecular GeneticsSUPPLEMENTAL INFORMATIONThe Factor V Leiden (R506Q) mutation [[id number].[id number]> A (p.R534Q)] in the Factor V gene is one of themost common causes of inherited thrombophilia. Thismutation causes resistance to degradation of activatedFactor V protein by activated Protein C (APC).The Factor V Leiden (R506Q) mutation is detected byamplification of the selected region of Factor V geneby polymerase chain reaction (PCR) and fluorescentprobe hybridization to the targeted region, followed bymelting curve analysis with a real time PCR system.Although rare, false positive or false negative resultsmay occur. All results should be interpreted incontext of clinical findings, relevant history, andother laboratory data.Health care providers, please contact your localhoohbe genetic counselor or Adyoulike ([phone]) for assistance withinterpretation of these results.This test was developed and its analytical performancecharacteri stics have been determined by [employer] [place], [place]. It hasnot been cleared or approved by the U.S. Food and DrugAdministration. This assay has been validated pursuantto the CLIA regulations and is used for clinicalpurposes.This test was performed at:[facility] [address] [id number] Performed at:[facility] - [facility], [address] [place] [id number] Garcia M.D., Ph.D. Resul see noteFACTOR V Normal (applies Result- Factor [facility] LEIDEN (R506Q) to non-numeric V Health torV VARIANT NOT DETECTED results) System ID Date Data Source [id number] 03/14/2019 09:15:00 PM EST [facility] System Name Value Range Interpretation Description Data Sup porting Code Source(s) Document(s ) Leukocytes 7.9 Normal (applies WBC Count [facility] [#/volume] in {10^3_uL to non-numeric Health Unspecified } results) System specimen by Automated count Erythrocytes 5.04 Normal (applies RBC Count [facility] [#/volume] in {10^6_uL to non-numeric Health Blood by } results) System Automated count Hemoglobin 14.5 Normal (applies Hemoglobin [facility] [Mass/volume] in {gm/dL} to non-numeric Health Blood results) System Hematocrit 44.4 % Normal (applies Hematocrit [facility] [Volume to non-numeric Health Fraction] of results) System Blood Erythrocyte mean 88.1 fl Normal (applies MCV [facility] corpuscular to non-numeric Health volume [Entitic results) System volume] by Automated count Erythrocyte mean 28.8 pg Normal (applies MCH [facility] corpuscular to non-numeric Health hemoglobin results) System [Entitic mass] by Automated count Erythrocyte mean 32.7 Below low normal MCHC [facility] corpuscular {gm/dL} Health hemoglobin System concentration [Mass/volume] by Automated count Erythrocyte 15.5 % Above high normal RDW-CV [facility] distribution Health width [Entitic System volume] by Automated count Platelets 314 Normal (applies Platelet [facility] [#/volume] in {10^3_uL to non-numeric Count Health Plasma by } results) System Automated count Platelet mean 10.7 fl Above high normal MPV [facility] volume [Entitic Health volume] in Blood System by Automated count Monocytes 0.5 Normal (applies Monocyte # [facility] [#/volume] in {10^3_uL to non-numeric Health Blood by Manual } results) System count Eosinophils 0.10 Normal (applies Eosinophil # [facility] [#/volume] in {10^3_uL to non-numeric Health Blood } results) System Neutrophils 4.8 Normal (applies Neutrophil # [facility] [#/volume] in {10^3_uL to non-numeric Health Body fluid } results) System Basophils 0.03 Normal (applies Basophil # [facility] [#/volume] in {10^3_uL to non-numeric Health Blood by } results) System Automated count Lymphocyte 2.4 Normal (applies Lymphocyte # [facility] percent {10^3_uL to non-numeric Health differential } results) System count (procedure) Neutrophils/100 60.6 % Normal (applies Neutrophil % Jono savi leukocytes in to non-numeric Health Blood by results) System Automated count Monocytes/100 6.8 % Normal (applies Monocyte % [facility] leukocytes in to non-numeric Health Blood results) System Eosinophils/100 1.3 % Normal (applies Eosinophil % Jono savi leukocytes in to non-numeric Health Unspecified results) System specimen Basophils/100 0.4 % Normal (applies Basophil % [facility] leukocytes in to non-numeric Health Unspecified results) System specimen by Manual count Lymphocytes 30.9 % Normal (applies Lymphocyte % [facility] [#/volume] in to non-numeric Health Blood by results) System Automated count Nucleated 0.0 Normal (applies NRBC % [facility] erythrocytes {/100_WB to non-numeric Health [#/volume] in C} results) System Body fluid NRBC# 0.00 Below low normal NRBC # [facility] {10^3_uL Health } System ID Date Data Source [id number] 03/14/2019 09:15:00 PM EST [facility] System Name Value Range Interpretation Description Data Sup porting Code Source(s) Document(s ) Triglyceride 188 Above high normal Triglycerides, [facility] [Mass/volume] mg/dl Serum Health in Serum or System Plasma Optimal = < 100 mg/dLBoderline High = 15 0 - 199 mg/dLHigh = 200 - 499 mg/dLVery High = > 500 mg/dL Cholesterol 216 mg/dl Above high Cholesterol, Serum [facility] [Mass/volume] in normal System Serum or Plasma <200 mg/dL = [id number] - 239 md/dL = Borderline>240 mg/dL = High Risk Cholesterol in HDL 71.0 mg/dL Normal (applies HDL Cholestero l, [facility] [Mass/volume] in to non-numeric Serum Health S ystem Serum or Plasma results) Cholesterol in LDL 107.4 mg/dL Normal (applies Low Density [facility] [Mass/volume] in to non-numeric Lipoprotein, Healt h System Serum or Plasma results) Calculated OPTIMAL: LESS THAN 100 mg/dLNEAR OPTIMAL : 100 - 129 mg/dLBODERLINE HIGH: 130 - 150 mg/dL Cholesterol in VLDL 37.6 Normal (applies to VLDL, Serum [facility] [Mass/volume] in Serum non-numeric results) System or Plasma CHDRisk 3.04 Normal (applies to CHD Risk [facility] non-numeric results) System ID Date Data Source [id number] 03/14/2019 09:15:00 PM EST [facility] System Name Value Range Interpretation Description Data Sup porting Code Source(s) Document(s ) Sodium 139 Normal (applies Sodium, Serum [facility] [Moles/volume] in mmol/L to non-numeric Health Serum or Plasma results) System Potassium 4.4 Normal (applies Potassium, [facility] [Mass/volume] in mmol/L to non-numeric Serum Health Serum or Plasma results) System Chloride 107 Normal (applies Chloride, [facility] [Moles/volume] in mmol/L to non-numeric Serum Health Serum or Plasma results) System Carbon dioxide, 24.0 Normal (applies CO2, Serum [facility] total mmol/L to non-numeric Health [Moles/volume] in results) System Serum or Plasma TotalProtein 7.2 Normal (applies Total Protein [facility] mg/dl to non-numeric Health results) System Glucose 148 Above high Glucose, [facility] [Mass/volume] in mg/dL normal Serum Health Serum or Plasma System Urea nitrogen 10 Normal (applies Blood Urea [facility] [Mass/volume] in mg/dl to non-numeric Nitrogen, Health Serum or Plasma results) Serum System Creatinine 0.70 Normal (applies Creatinine, [facility] [Mass/volume] in mg/dl to non-numeric Serum Health Serum or Plasma results) System Alkaline 117 Normal (applies Alkaline [facility] phosphatase {IU/L} to non-numeric Phosphatase, Health isoenzymes results) Serum System [Enzymatic activity/volume] in Serum or Plasma by Heat stability Bilirubin.total 0.2 Normal (applies Bilirubin, [facility] [Mass/volume] in mg/dl to non-numeric Serum Total Health Serum or Plasma results) System DirectBilirubin 0.1 Normal (applies Direct [facility] mg/dl to non-numeric Bilirubin Health results) System Aspartate 11 Normal (applies Aspartate [facility] aminotransferase {IU/L} to non-numeric Transaminase, Heal th [Enzymatic results) Serum System activity/volume] in Serum or Plasma by With P-5'-P Albumin 4.5 Normal (applies Albumin, [facility] [Mass/volume] in {gm/dl} to non-numeric Serum Health Serum or Plasma results) System I.Phosphorus 3.3 Normal (applies I. Phosphorus [facility] mg/dl to non-numeric Health results) System Alanine 14 Normal (applies Alanine [facility] aminotransferase {IU/L} to non-numeric Aminotransfer Heal th [Enzymatic results) ase, Serum System activity/volume] in Serum or Plasma Calcium 10.5 Above high Calcium, [facility] [Mass/volume] in mg/dl normal Total Serum Health Serum or Plasma System A/GRatio 1.67 Normal (applies A/G Ratio [facility] to non-numeric Health results) System Urate 4.9 Normal (applies Uric Acid, [facility] [Mass/volume] in mg/dl to non-numeric Serum Health Serum or Plasma results) System Anion gap in Serum 8.00 Normal (applies Anion Gap Jono savi or Plasma mmol/L to non-numeric Health results) System Glomerular 87.27 Normal (applies GFR [facility] filtration to non-numeric Health rate/1.73 sq results) System M.predicted [Volume Rate/Area] in Serum or Plasma by Creatinine-based formula (CKD-EPI) eGFR will provide clinicians with a more accurate indicator of renal function then the serum creatinine. The eGFR is automa tically calculated from an empiric formula (endorsed by the National Kidney Foundat ion) which incorporates age, sex, and race.Clinicians may notice surprisingly low GFR's with serum creatinine valueswithin normal range- particularly in elderly wo men (with low muscle mass).In the hospital setting, the eGFR should add an element of safety in drug dosing, in assessing the risk of IV contrast administration, and in assessing vascular risk.The NKF staging system is as follows:Normal: eGFR >90 with no kidney markersStage 1: eGFR >90 with kidney markers*Stage 2: eGFR 60- 89Stage 3: eGFR 30-59Stage 4: eGFR 15-29Stage 5: eGFR <15 (usually requir ing dialysis)*Markers include: Proteinuria, Hematuria, abnormal imaging-studies, or other blood or urine test abnormalities ID Date Data Source [id number] 03/14/2019 09:15:00 PM EST [employer] System Name Value Range Interpretation Description Data Source(s ) Supporting Code Document(s ) Troponin 0.00 Normal (applies to Troponin I [facility] I[facility]it ng/mL non-numeric Quantitative - Health System ative-MV results) MV Only Only ID Date Data Source [id number] 03/14/2019 09:15:00 PM EST [employer] [facility] System Name Value Range Interpretation Description Data Sup porting Code Source(s) Document(s ) Prothrombintim 10.80 Normal (applies Prothrombin [facility] e(PT) {seconds to non-numeric time (PT) Health System } results) INR in Blood 1.02 Normal (applies INR Result [facility] by Coagulation {Ratio} to non-numeric Health Sys tem assay results) Normal = 0.7-1.1Therapeutic = 2.0-3.0Mec hanical Heart = 3.0-4.5 ID Date Data Source [id number] 03/14/2019 09:15:00 PM EST [facility] System Name Value Range Interpretation Description Data Source(s ) Supporting Code Document(s ) PH* 7.365 Normal (applies to PH* [facility] {pH_units non-numeric Health System } results) PCO2* 44.0 Normal (applies to PCO2* [facility] {mm_Hg} non-numeric Health System results) BaseExce -0.30 Normal (applies to Base Excess* [facility] ss* {mEq/L} non-numeric Health System results) HCO3* 25.1 Normal (applies to HCO3* [facility] mmol/L non-numeric Health System results) Chloride 108 Above high normal Chloride, VB [facility] ,VB mmol/L Health System Lactate. 1.8 Normal (applies to Lactate. [facility] mmol/L non-numeric Health System results) Glucose, 144 mg/dL Above high normal Glucose, VB [facility] VB Health System Potassiu 4.2 Normal (applies to Potassium, VB [facility] m,VB mmol/L non-numeric Health System results) Sodium,V 141 Normal (applies to Sodium, VB [facility] B mmol/L non-numeric Health System results) IonizedC 1.35 Above high normal Ionized [facility] alcium,V mmol/L Calcium, VB Health System B [id number] 77.50 % Normal (applies to O2 Saturation* [facility] tion* non-numeric Health System results) ID Date Data Source [id number] 03/14/2019 09:15:00 PM EST [facility] System Name Value Range Interpretation Description Data Sup porting Code Source(s) Document(s ) Amphetamine Negative Normal (applies Amphetamine [facility] [Mass/volume] to non-numeric Level, Urine Health in Urine results) System Cut-off = 1000 ng/mL Barbiturates Positive Abnormal (applies Barbiturate [facility] [Mass/volume] in to non-numeric Screen, Urine [facility] System Urine by Screen results) method Cut-off = 200 ng/mL Benzodiazepines Negative Normal (applies Benzodiazepines, M [facility] [Mass/volume] in to non-numeric Urine Health S yste Urine results) Cut-off = 200 ng/mL Cocaine Positive Abnormal (applies Cocaine [facility] metabolites.other to non-numeric Metabolite Health System [Mass/volume] in Urine results) Screen, Urine Cut-off = 300 ng/mL Methadone Negative Normal (applies to Methadone Level, [facility] [Mass/volume] in non-numeric Urine System Urine results) Cut-off = 300 ng/mL [id number],Urine Negative Normal (applies to Opiate 300, [facility] non-numeric results) Urine System Cut-off = 300 ng/mL Phencyclidine Negative Normal (applies Phencyclidine, Urine [facility] [Mass/volume] in to non-numeric Health S yste Urine results) Cut-off = 25 ng/mL Cannabinoid(THC) Negative Normal (applies [facility] (THC) [facility] non-numeric System results) Cutt-off = 50These results are for medic al treatment only. The positive findings are unconfirmed. Request confirmatory/quanti tative test if needed. ID Date Data Source [id number] 03/14/2019 09:15:00 PM EST [facility] System Name Value Range Interpretation Description Data Sup porting Code Source(s) Document(s ) Phenobarbital 24.4 Normal (applies Phenobarbital [facility] [Mass/volume] in ug/ml to non-numeric Level, Serum Healt h Serum or Plasma results) System ID Date Data Source [id number] 03/14/2019 09:15:00 PM EST [facility] System Name Value Range Interpretation Description Data Sup porting Code Source(s) Document(s ) Phenytoin 0.0 Below low normal Phenytoin [facility] [Mass/volume] ug/ml Level, Serum Health System in Serum or Plasma ID Date Data Source [id number] 03/14/2019 09:15:00 PM EST [facility] System Name Value Range Interpretation Description Data Sup porting Code Source(s) Document(s ) Leukocytes 12.3 Above high WBC Count [facility] [#/volume] in {10^3_uL normal Health Unspecified } System specimen by Automated count Erythrocytes 4.73 Normal (applies RBC Count [facility] [#/volume] in {10^6_uL to non-numeric Health Blood by } results) System Automated count Hemoglobin 13.6 Normal (applies Hemoglobin [facility] [Mass/volume] in {gm/dL} to non-numeric Health Blood results) System Hematocrit 41.7 % Normal (applies Hematocrit [facility] [Volume to non-numeric Health Fraction] of results) System Blood Erythrocyte mean 88.2 fl Normal (applies MCV [facility] corpuscular to non-numeric Health volume [Entitic results) System volume] by Automated count Erythrocyte mean 28.8 pg Normal (applies MCH [facility] corpuscular to non-numeric Health hemoglobin results) System [Entitic mass] by Automated count Erythrocyte mean 32.6 Below low normal MCHC [facility] corpuscular {gm/dL} Health hemoglobin System concentration [Mass/volume] by Automated count Erythrocyte 14.7 % Above high RDW-CV [facility] distribution normal Health width [Entitic System volume] by Automated count Platelets 341 Normal (applies Platelet Count [facility] [#/volume] in {10^3_uL to non-numeric Health Plasma by } results) System Automated count Platelet mean 10.2 fl Normal (applies MPV [facility] volume [Entitic to non-numeric Health volume] in Blood results) System by Automated count Monocytes 0.8 Normal (applies Monocyte # [facility] [#/volume] in {10^3_uL to non-numeric Health Blood by Manual } results) System count Eosinophils 0.12 Normal (applies Eosinophil # [facility] [#/volume] in {10^3_uL to non-numeric Health Blood } results) System Neutrophils 7.1 Normal (applies Neutrophil # [facility] [#/volume] in {10^3_uL to non-numeric Health Body fluid } results) System Basophils 0.05 Normal (applies Basophil # [facility] [#/volume] in {10^3_uL to non-numeric Health Blood by } results) System Automated count Lymphocyte 4.2 Normal (applies Lymphocyte # [facility] percent {10^3_uL to non-numeric Health differential } results) System count (procedure) Neutrophils/100 57.6 % Normal (applies Neutrophil % [facility] leukocytes in to non-numeric Health Blood by results) System Automated count Monocytes/100 6.3 % Normal (applies Monocyte % [facility] leukocytes in to non-numeric Health Blood results) System Eosinophils/100 1.0 % Normal (applies Eosinophil % [place] [facility] leukocytes in to non-numeric Health Unspecified results) System specimen Basophils/100 0.4 % Normal (applies Basophil % [facility] leukocytes in to non-numeric Health Unspecified results) System specimen by Manual count Lymphocytes 34.4 % Normal (applies Lymphocyte % [facility] [#/volume] in to non-numeric Health Blood by results) System Automated count ImmatureGranuloc 0.3 % Normal (applies Immature [facility] ytes% to non-numeric Granulocytes % Health results) System Nucleated 0.0 Normal (applies NRBC % [facility] erythrocytes {/100_WB to non-numeric Health [#/volume] in C} results) System Body fluid ImmatureGranuloc 0.04 Normal (applies Immature [facility] ytes# {10^3_uL to non-numeric Granulocytes # Health } results) System NRBC# 0.00 Below low normal NRBC # [facility] {10^3_uL Health } System ID Date Data Source [id number] 03/14/2019 09:15:00 PM EST [facility] Name Value Range Interpretation Code Description Data Nany rce(s) Supporting Document(s ) T3Free 2.48 ng/ml Normal (applies to T3 Free [facility] non-numeric Health System results) ID Date Data Source [id number] 03/14/2019 09:15:00 PM EST [facility] Name Value Range Interpretation Description Data Sup porting Code Source(s) Document(s ) Thyrotropin 1.736 Normal (applies Thyroid [facility] [Mass/volume] {mIU/mL} to non-numeric Stimulating Health Sy stem in Serum or results) Hormone, Serum Plasma ID Date Data Source [id number] 03/14/2019 09:15:00 PM EST [facility] Name Value Range Interpretation Description Data Sup porting Code Source(s) Document(s ) Sodium 140 Normal (applies Sodium, Serum [facility] [Moles/volume] in mmol/L to non-numeric Health Serum or Plasma results) System Potassium 4.0 Normal (applies Potassium, [facility] [Mass/volume] in mmol/L to non-numeric Serum Health Serum or Plasma results) System Chloride 108 Above high Chloride, [facility] [Moles/volume] in mmol/L normal Serum Health Serum or Plasma System Carbon dioxide, 24.0 Normal (applies CO2, Serum [facility] total mmol/L to non-numeric Health [Moles/volume] in results) System Serum or Plasma TotalProtein 6.3 Normal (applies Total Protein [facility] mg/dl to non-numeric Health results) System Glucose 117 Above high Glucose, [facility] [Mass/volume] in mg/dL normal Serum Health Serum or Plasma System Urea nitrogen 14 Normal (applies Blood Urea [facility] [Mass/volume] in mg/dl to non-numeric Nitrogen, Health Serum or Plasma results) Serum System Creatinine 0.80 Normal (applies Creatinine, [facility] [Mass/volume] in mg/dl to non-numeric Serum Health Serum or Plasma results) System Alkaline 108 Normal (applies Alkaline [facility] phosphatase {IU/L} to non-numeric Phosphatase, Health isoenzymes results) Serum System [Enzymatic activity/volume] in Serum or Plasma by Heat stability Bilirubin.total 0.2 Normal (applies Bilirubin, [facility] [Mass/volume] in mg/dl to non-numeric Serum Total Health Serum or Plasma results) System DirectBilirubin 0.1 Normal (applies Direct [facility] mg/dl to non-numeric Bilirubin Health results) System Aspartate 10 Normal (applies Aspartate [facility] aminotransferase {IU/L} to non-numeric Transaminase, Heal th [Enzymatic results) Serum System activity/volume] in Serum or Plasma by With P-5'-P Albumin 3.8 Below low normal Albumin, [facility] [Mass/volume] in {gm/dl} Serum Health Serum or Plasma System I.Phosphorus 3.7 Normal (applies I. Phosphorus [facility] mg/dl to non-numeric Health results) System Alanine 15 Normal (applies Alanine [facility] aminotransferase {IU/L} to non-numeric Aminotransfer [facility]al th [Enzymatic results) ase, Serum System activity/volume] in Serum or Plasma Calcium 10.2 Normal (applies Calcium, [facility] [Mass/volume] in mg/dl to non-numeric Total Serum Health Serum or Plasma results) System A/GRatio 1.52 Normal (applies A/G Ratio [facility] to non-numeric Health results) System Urate 5.5 Normal (applies Uric Acid, [facility] [Mass/volume] in mg/dl to non-numeric Serum Health Serum or Plasma results) System Anion gap in Serum 8.00 Normal (applies Anion Gap [facility] or Plasma mmol/L to non-numeric Health results) System Glomerular 74.80 Normal (applies GFR [facility] filtration to non-numeric Health rate/1.73 sq results) System M.predicted [Volume Rate/Area] in Serum or Plasma by Creatinine-based formula (CKD-EPI) eGFR will provide clinicians with a more accurate indicator of renal function then the serum creatinine. The eGFR is automa tically calculated from an empiric formula (endorsed by the [employer] ion) which incorporates age, sex, and race.Clinicians may notice surprisingly low GFR's with serum creatinine valueswithin normal range- particularly in elderly wo men (with low muscle mass).In the hospital setting, the eGFR should add an element of safety in drug dosing, in assessing the risk of IV contrast administration, and in assessing vascular risk.The NKF staging system is as follows:Normal: eGFR >90 with no kidney markersStage 1: eGFR >90 with kidney markers*Stage 2: eGFR 60- 89Stage 3: eGFR 30-59Stage 4: eGFR 15-29Stage 5: eGFR <15 (usually requir ing dialysis)*Markers include: Proteinuria, Hematuria, abnormal imaging-studies, or other blood or urine test abnormalities ID Date Data Source [id number] 03/13/2019 01:06:00 PM [facility] Chest x-rayClinical history: Visit reaso n: Stroke;Findings: Heart size is normal. No congestive heart failure or acute infilt rates. The costophrenic angles are sharp and the trachea ismidline. Hilar structures outline normally. Impression:Negative chest x-ray. Thisexamination is compared to pr ior study dated 02/22/19. Name Value Range Interpretation Code Description Data Nany rce(s) Supporting Document(s ) ID Date Data Source [id number] 03/13/2019 01:06:00 PM EST S - [facility] PROCEDURE INFORMATION: Exam: CT Head Wit h Contrast Exam date and time: 03/13/2019 1:44 PM Age: 53 years old Clinical indication : Visit reason: Slurred speech; TECHNIQUE: Imaging protocol: Computedtomography of the head with intravenous contrast. Radiation optimization: All CT scans at this [facility] it[facility] use atleast one of these dose optimization techniques: automated expos ure control; mA and/or kV adjustment perpatient size (includes targeted exams where dose is matched to clinical indication); or iterativereconstruction. COMPARISON: CT Head^01 Routine Head (Adult) 03/13/2019 1:20 PM FINDINGS:Right interna l carotid artery: Unremarkable. Intracranial segment is patent with no significant st enosis.No aneurysm. Right anterior cerebral artery: Unremarkable. No occlusion or si gnificant stenosis. No aneurysm.Right middle cerebral artery: Unremarkable. No occlus ion or significant stenosis. No aneurysm. Rightposterior cerebral artery: Unremark able. No occlusion or significant stenosis. No aneurysm. Right vertebralartery: Unr emarkable. No occlusion or significant stenosis. No aneurysm. Left internal ca rotid artery:Unremarkable. Intracranial segment is patent with no significant st enosis. No aneurysm. Left anterior cerebralartery: Unremarkable. No occlusi on or significant stenosis. No aneurysm. Left middle cerebral artery:Unremarkable . No occlusion or significant stenosis. No aneurysm. Left posterior cerebral arter y:Unremarkable. No occlusion or significant stenosis. No aneurysm. Left vertebral a rtery: Unremarkable. Noocclusion or significant stenosis. No aneurysm. Basi lar artery: Unremarkable. No occlusion or significantstenosis. No aneurysm. IMPRES BEBETO: Unremarkable intracranial vasculature. PRO CEDURE INFORMATION: Exam: CT Neck With Contrast Exam date andtime: 03/13/2019 1: 44 PM Age: 53 years old Clinical indication: Visit reason: Slurred speech;TECHNIQUE: Imaging protocol: Computed tomography of the neck with intravenous contrast.Radiation optimization: All CT scans at this facility use at least one of these dose optimizat ion techniques:automated exposure control; mA and/or kV adjustment per patient size (i ncludes targeted exams where dose ismatched to clinical indication); or iterative re construction. COMPARISON: CT Head^01 Routine Head(Adult) 03/13/2019 1:20 PM FINDINGS: VASCULATURE: Right common carotid artery: Unremarkable. Nostenosis. No dissection or occlusion. Right internal carotid artery: Unremarkable extracranial segment. Noste nosis. No dissection or occlusion. Right external carotid artery: Unremarkable. N o occlusion or stenosisof the origin. Right vertebral artery: Unremarkable. No steno sis. No dissection or occlusion.Left common carotid artery: Unremarkable. No stenosi s. No dissection or occlusion. Left internalcarotid artery: Unremarkable ext racranial segment. No stenosis. No dissection or occlusion. Left externalcarotid arter y: Unremarkable. No occlusion or stenosis of the origin. Left vertebral artery: Unre markable. Nostenosis. No dissection or occlusion. NECK: Bones/joints: No acute fracture. Soft tissues:Normal. No significant soft tissue swelling. IMPRESSION: Unrema rkable cervical vasculature.COMMENT: Reference per NASCET criteria for degree of stenosis: Mild: less than 50% stenosis.Moderate: 50-69% stenosis. Kandy re: 70-94% stenosis. Near occlusion: 95-99% stenosis. Name Value Range Interpretation Code Description Data Nany rce(s) Supporting Document(s ) ID Date Data Source [id number] 03/13/2019 01:06:00 PM EST [facility] CAT scan of the headHistory: Visit reas on: Stroke;Findings:Contiguous 5-mm axial sections were obtained from the base of the skull inferiorly to the vertex. This scan was performed usingautomatic exposure co ntrol (radiation dose reduction software) to obtain a diagnostic image quality scan w ithpatient dose as low as reasonably achievable.DOSE INFORMATION: Estimated radiation dose for thisexamination in total is DLP of 708 mGy-cm. This examination i s compared to prior study dated12/15/19.The posterior fossa shows mild prominence of the cerebellar folia and subarachnoid space due tomild cerebellar atrophy.The suprat entorial ventricular system is normal in size and midline inposition.Mild degenerative white matter changes are present bilaterally likely on the basis of chronic smallvess el ischemic change. There is no evidence of mass, hemorrhage, extracerebral collecti on, or acuteinfarct.Evaluation of the bone windows reveals no evidence of fracture or destructive process of the bonycalvarium.The visualized portion of the paranasal sinuses show no evidence of significant abnormality.Impression: Mil d degenerative white changes.No acute intracranial abnormality.CTunchanged. Name Value Range Interpretation Code Description Data Nany rce(s) Supporting Document(s ) ID Date Data Source [id number] 12/26/2010 09:36:00 PM EST [facility] Name Value Range Interpretation Description Data Sup porting Code Source(s) Document(s ) Type B Normal (applies Type [facility] to non-numeric Health results) System AntibodyScreen Negative Normal (applies Antibody [facility] to non-numeric Screen Health results) System D Ab [Titer] in Normal (applies Rh Factor, [facility] Serum or Plasma to non-numeric Whole Blood Health results) System ID Date Data Source [id number] 12/26/2010 09:36:00 PM EST [facility] Name Value Range Interpretation Description Data Sup porting Code Source(s) Document(s ) Prothrombin Ab 1.07 Normal (applies INR Result [facility] [Units/volume] {Ratio} to non-numeric Health Sys tem in Serum or results) Plasma Prothrombintim 12.10 Normal (applies Prothrombin [facility](PT) to non-numeric time (PT) Health System results) ID Date Data Source [id number] 12/26/2010 09:36:00 PM EST [facility] Name Value Range Interpretation Description Data Sup porting Code Source(s) Document(s ) TroponinIQuantitative 0.01 Normal (applies Troponin I [facility] ng/ml to non-numeric Quantitative Health results) System ID Date Data Source [id number] 12/26/2010 09:37:00 PM EST [facility] Name Value Range Interpretation Description Data Sup porting Code Source(s) Document(s ) Anisocytosis 2+ Abnormal Anisocytosis [facility] [Presence] in (applies to Health Blood by non-numeric System Automated count results) Poikilocytosis 1+ Abnormal Poikilocytosis [facility] [Presence] in (applies to Health Blood by non-numeric System Automated count results) Polychromasia Slight Abnormal Polychromasia [facility] [Presence] in (applies to Health Blood by Light non-numeric System microscopy results) Hypochroma 2+ Abnormal Hypochroma [facility] (applies to Health non-numeric System results) OVAL Few Normal (applies OVAL [facility] to non-numeric Health results) System Platelets Abnormal Platelet Count [facility] [#/volume] in (applies to Estimate Health Blood by non-numeric System Estimate results) Microcytes Few Normal (applies Microcytosis [facility] [Presence] in to non-numeric Health Blood by results) System Automated count Dacrocytes Rare Normal (applies Tear Drops [facility] [Presence] in to non-numeric Health Blood by Light results) System microscopy Target cells Few Normal (applies Target Cells [facility] [Presence] in to non-numeric Health Blood by Light results) System microscopy ID Date Data Source [id number] 12/26/2010 09:37:00 PM EST [facility] Name Value Range Interpretation Description Data Sup porting Code Source(s) Document(s ) Leukocytes 6.7 Normal (applies WBC Count [facility] [#/volume] in {10\\S\\3_ to non-numeric Health Unspecified uL} results) System specimen by Automated count Erythrocytes 4.20 Normal (applies RBC Count [facility] [#/volume] in {10\\S\\6_ to non-numeric Health Blood by uL} results) System Automated count Erythrocyte mean 23.4 pg Below low normal MCH [facility] corpuscular Health hemoglobin System [Entitic mass] by Automated count Hematocrit 30.7 % Below low normal Hematocrit, [facility] [Volume Whole Blood Health Fraction] of System Blood Hemoglobin 9.8 Below low normal Hemoglobin, [facility] [Mass/volume] in {gm/dL} Whole Blood Health Blood System Erythrocyte mean 73.1 fl Below low normal MCV [facility] corpuscular Health volume [Entitic System volume] by Automated count Erythrocyte 18.1 % Above high normal RDW [facility] distribution Health width [Entitic System volume] by Automated count Erythrocyte mean 32.1 Below low normal MCHC [facility] corpuscular {gm/dL} Health hemoglobin System concentration [Mass/volume] by Automated count Platelets 490 Above high normal Platelet [facility] [#/volume] in {10\\S\\3_ Count Health Plasma by uL} System Automated count Eosinophils 0.1 Normal (applies Eosinophil [facility] [#/volume] in {10\\S\\3} to non-numeric Count Blood Health Blood results) System Monocytes 0.6 Normal (applies Monocyte [facility] [#/volume] in {10\\S\\3_ to non-numeric Count Health Blood by Manual uL} results) System count Platelet mean 7.6 fl Normal (applies MPV [facility] volume [Entitic to non-numeric Health volume] in Blood results) System by Automated count Basophils 0.10 Normal (applies Basophil [facility] [#/volume] in {10\\S\\3_ to non-numeric Count Health Blood by uL} results) System Automated count Neutrophils 3.5 Normal (applies Absolute [facility] [#/volume] in {10\\S\\3_ to non-numeric Neutrophil Health Body fluid uL} results) Count System Lymphocyte 2.5 Normal (applies Lymphocyte [facility] percent {10\\S\\3_ to non-numeric Absolute Health differential uL} results) System count (procedure) Neutrophils/100 52.1 % Below low normal Neutrophil % [place] [facility] leukocytes in Health Blood by System Automated count Eosinophils/100 2 % Normal (applies Eosinophil % [place] [facility] leukocytes in to non-numeric Health Unspecified results) System specimen Monocytes/100 8 % Above high normal Monocyte % [facility] leukocytes in Health Blood System Basophils/100 1 % Normal (applies Basophil % [facility] leukocytes in to non-numeric Health Unspecified results) System specimen by Manual count Lymphocytes 37 % Normal (applies Lymphocyte % [facility] [#/volume] in to non-numeric Health Blood by results) System Automated count ID Date Data Source [id number] 12/26/2010 09:37:00 PM EST [facility] Name Value Range Interpretation Description Data Sup porting Code Source(s) Document(s ) Chloride 108 Normal (applies Chloride, [facility] [Moles/volume] in mmol/L to non-numeric Serum Health Serum or Plasma results) System Sodium 139 Normal (applies Sodium, Serum [facility] [Moles/volume] in mmol/L to non-numeric Health Serum or Plasma results) System Potassium 4.4 Normal (applies Potassium, [facility] [Mass/volume] in mmol/L to non-numeric Serum Health Serum or Plasma results) System Carbon dioxide, 25.9 Normal (applies CO2, Serum [facility] total mmol/L to non-numeric Health [Moles/volume] in results) System Serum or Plasma Glucose 94 Normal (applies Glucose, [facility] [Mass/volume] in mg/dL to non-numeric Serum Health Serum or Plasma results) System TotalProtein 5.9 Below low normal Total Protein [facility] mg/dl [facility] System Urea nitrogen 6 mg/dl Below low normal Blood Urea [facility] [Mass/volume] in Nitrogen, Health Serum or Plasma Serum System Creatinine 0.84 Normal (applies Creatinine, [facility] [Mass/volume] in mg/dl to non-numeric Serum Health Serum or Plasma results) System Alkaline 57 Normal (applies Alkaline [facility] phosphatase {IU/L} to non-numeric Phosphatase, [facility] isoenzymes results) Serum System [Enzymatic activity/volume] in Serum or Plasma by Heat stability Bilirubin.total 0.2 Normal (applies Bilirubin, [facility] [Mass/volume] in mg/dl to non-numeric Serum Total Health Serum or Plasma results) System Aspartate 26 Normal (applies Aspartate [facility] aminotransferase {IU/L} to non-numeric Transaminase, Heal th [Enzymatic results) Serum System activity/volume] in Serum or Plasma by With P-5'-P Albumin 3.3 Normal (applies Albumin, [facility] [Mass/volume] in {gm/dl} to non-numeric Serum Health Serum or Plasma results) System I.Phosphorus 4.4 Normal (applies I. Phosphorus [facility] mg/dl to non-numeric Health results) System Alanine 24 Normal (applies Alanine [facility] aminotransferase {IU/L} to non-numeric Aminotransfer Heal th [Enzymatic results) ase, Serum System activity/volume] in Serum or Plasma Urate 4.9 Normal (applies Uric Acid, [facility] [Mass/volume] in mg/dl to non-numeric Serum Health Serum or Plasma results) System A/GRatio 1.27 Normal (applies A/G Ratio [facility] to non-numeric Health results) System Calcium 9.5 Normal (applies Calcium, [facility] [Mass/volume] in mg/dl to non-numeric Total Serum Health Serum or Plasma results) System Anion gap in Serum 5.10 Normal (applies Anion Gap [facility] or Plasma mmol/L to non-numeric Health results) System Glomerular Normal (applies GFR [facility] filtration to non-numeric Health rate/1.73 sq results) System M.predicted [Volume Rate/Area] in Serum or Plasma by Creatinine-based formula (CKD-EPI) ID Date Data Source [id number] 12/26/2010 09:37:00 PM EST [facility] Name Value Range Interpretation Description Data Sup porting Code Source(s) Document(s ) TroponinIQuantitative 0.01 Normal (applies Troponin I [facility] ng/ml to non-numeric Quantitative Health results) System ID Date Data Source [id number] 12/27/2010 06:00:00 AM EST [facility] Name Value Range Interpretation Code Description Data Nany rce(s) Supporting Document(s ) ANAEIA Negative Normal (applies to MAKENZIE EIA [facility] non-numeric results) Health Sy stem ID Date Data Source [id number] 12/27/2010 06:00:00 AM EST [facility] Name Value Range Interpretation Description Data Sup porting Code Source(s) Document(s ) Erythrocytes 4.36 Normal (applies RBC Count [facility] [#/volume] in {10\\S\\6_ to non-numeric Health Blood by uL} results) System Automated count Leukocytes 6.9 Normal (applies WBC Count [facility] [#/volume] in {10\\S\\3_ to non-numeric Health Unspecified uL} results) System specimen by Automated count Hematocrit 32.2 % Below low normal Hematocrit, [facility] [Volume Whole Blood Health Fraction] of System Blood Erythrocyte mean 73.9 fl Below low normal MCV [facility] corpuscular Health volume [Entitic System volume] by Automated count Hemoglobin 10.1 Below low normal Hemoglobin, [facility] [Mass/volume] in {gm/dL} Whole Blood Health Blood System Erythrocyte mean 23.2 pg Below low normal MCH [facility] corpuscular Health hemoglobin System [Entitic mass] by Automated count Erythrocyte mean 31.3 Below low normal MCHC [facility] corpuscular {gm/dL} Health hemoglobin System concentration [Mass/volume] by Automated count Platelet mean 7.6 fl Normal (applies MPV [facility] volume [Entitic to non-numeric Health volume] in Blood results) System by Automated count Erythrocyte 17.8 % Above high normal RDW [facility] distribution Health width [Entitic System volume] by Automated count Platelets 477 Above high normal Platelet [facility] [#/volume] in {10\\S\\3_ Count Health Plasma by uL} System Automated count Eosinophils 0.1 Normal (applies Eosinophil [facility] [#/volume] in {10\\S\\3} to non-numeric Count Blood Health Blood results) System Neutrophils 4.1 Normal (applies Absolute [facility] [#/volume] in {10\\S\\3_ to non-numeric Neutrophil Health Body fluid uL} results) Count System Monocytes 0.5 Normal (applies Monocyte [facility] [#/volume] in {10\\S\\3_ to non-numeric Count Health Blood by Manual uL} results) System count Neutrophils/100 60.3 % Normal (applies Neutrophil % [facility] leukocytes in to non-numeric Health Blood by results) System Automated count Basophils 0.10 Normal (applies Basophil [facility] [#/volume] in {10\\S\\3_ to non-numeric Count Health Blood by uL} results) System Automated count Lymphocyte 2.1 Normal (applies Lymphocyte [facility] percent {10\\S\\3_ to non-numeric Absolute Health differential uL} results) System count (procedure) Monocytes/100 7 % Above high normal Monocyte % [facility] leukocytes in Health Blood System Eosinophils/100 2 % Normal (applies Eosinophil % [place] leukocytes in to non-numeric Health Unspecified results) System specimen Basophils/100 1 % Normal (applies Basophil % [facility] leukocytes in to non-numeric Health Unspecified results) System specimen by Manual count Lymphocytes 31 % Normal (applies Lymphocyte % [facility] [#/volume] in to non-numeric Health Blood by results) System Automated count ID Date Data Source [id number] 12/27/2010 06:00:00 AM EST [facility] Name Value Range Interpretation Description Data Sup porting Code Source(s) Document(s ) Sodium 137 Normal (applies Sodium, Serum [facility] [Moles/volume mmol/L to non-numeric Health Syst em ] in Serum or results) Plasma Potassium 4.4 Normal (applies Potassium, [facility] [Mass/volume] mmol/L to non-numeric Serum Health Syst em in Serum or results) Plasma Chloride 108 Normal (applies Chloride, [facility] [Moles/volume mmol/L to non-numeric Serum Health Syst em ] in Serum or results) Plasma Carbon 22.4 Normal (applies CO2, Serum [facility] dioxide, mmol/L to non-numeric Health System total results) [Moles/volume ] in Serum or Plasma Urea nitrogen 9 mg/dl Normal (applies Blood Urea [facility] [Mass/volume] to non-numeric Nitrogen, Health Syst em in Serum or results) Serum Plasma Creatinine 0.78 Normal (applies Creatinine, [facility] [Mass/volume] mg/dl to non-numeric Serum Health Syst em in Serum or results) Plasma Glucose 64 mg/dL Below low normal Glucose, Serum [facility] [Mass/volume] [facility] in Serum or Plasma Calcium 9.2 Normal (applies Calcium, Total [facility] [Mass/volume] mg/dl to non-numeric Serum Health Syst em in Serum or results) Plasma Anion gap in 8.60 Normal (applies Anion Gap [facility] Serum or mmol/L to non-numeric Health System Plasma results) ID Date Data Source [id number] 12/27/2010 06:00:00 AM EST [facility] Name Value Range Interpretation Description Data Sup porting Code Source(s) Document(s ) Phenobarbital 31.9 Normal (applies PHENobarbital [facility] [Mass/volume] in ug/ml to non-numeric Level, Serum [facility] Serum or Plasma results) System ID Date Data Source [id number] 12/27/2010 06:00:00 AM EST [facility] Name Value Range Interpretation Description Data Sup porting Code Source(s) Document(s ) TroponinIQuantitative 0.00 Normal (applies Troponin I [facility] ng/ml to non-numeric Quantitative Health results) System ID Date Data Source [id number] 12/27/2010 06:00:00 AM EST [facility] Name Value Range Interpretation Description Data Sup porting Code Source(s) Document(s ) Creatine 45 {IU/L} Normal (applies Creatine [facility] kinase.MB to non-numeric Kinase, Serum [facility] [Mass/volume results) ] in Serum or Plasma ID Date Data Source [id number] 12/27/2010 07:31:00 PM EST [facility] Name Value Range Interpretation Description Data Sup porting Code Source(s) Document(s ) Deprecated Normal (applies to Aerobic [facility] Bacteria non-numeric Culture, Urine [facility] identified in results) Urine by Aerobe culture ID Date Data Source [id number] 12/27/2010 07:31:00 PM EST [facility] Name Value Range Interpretation Description Data Sup porting Code Source(s) Document(s ) Color Yellow Normal (applies Color [facility] to non-numeric Health results) System Appearance of CLEAR Normal (applies Urine [facility] Urine to non-numeric Appearance Health results) System Specific gravity 1.014 Normal (applies Urine Specific [facility] of Urine to non-numeric [facility] results) System pH.. 6.0 Normal (applies pH.. [facility] {pH_units} to non-numeric Health results) System BilirubinUrine Negative Normal (applies Bilirubin [facility] to non-numeric Urine Health results) System Glucose,UA Negative Normal (applies Glucose, UA [facility] to non-numeric Health results) System Protein Negative Normal (applies Protein [facility] [Mass/volume] in to non-numeric Health Serum or Plasma results) System Urobilinogen Normal (applies Urobilinogen [facility] [Mass/volume] in to non-numeric UA Health Urine results) System Ketones Negative Normal (applies Ketones UA [facility] [Mass/volume] in to non-numeric Health Urine results) System Nitrate+Nitrite Negative Normal (applies Nitrite [facility] [Mass/volume] in to non-numeric Health Unspecified results) System specimen Leukocyte Negative Normal (applies Leukocyte [facility] esterase to non-numeric Esterase [facility] [Units/volume] results) Concentration System in Urine Epithelial cells 2 {/HPF} Normal (applies Epithelial [facility] [Presence] in to non-numeric Cells Health Unspecified results) System specimen by Wet preparation Leukocytes 1 {/HPF} Normal (applies White Blood [facility] [#/volume] in to non-numeric Cells Health Unspecified results) System specimen by Automated count RedBloodCells Normal (applies Red Blood [facility] to non-numeric Cells Health results) System Bacteria FEW Normal (applies Bacteria [facility] [Presence] in to non-numeric Health Unspecified results) System specimen Mucus MOD Normal (applies Mucus [facility] to non-numeric Health results) System UrineBlood Negative Normal (applies Urine Blood [facility] to non-numeric Health results) System Non-SquamousEpit Normal (applies Non-Squamous [facility] helial to non-numeric Epithelial Health results) System ID Date Data Source [id number] 12/28/2010 12:00:00 AM EST [facility] Name Value Range Interpretation Description Data Sup porting Code Source(s) Document(s ) Erythrocytes 4.20 Normal (applies RBC Count [facility] [#/volume] in {10\\S\\6_ to non-numeric Health Blood by uL} results) System Automated count Leukocytes 7.3 Normal (applies WBC Count [facility] [#/volume] in {10\\S\\3_ to non-numeric Health Unspecified uL} results) System specimen by Automated count Hematocrit 30.7 % Below low normal Hematocrit, [facility] [Volume Whole Blood Health Fraction] of System Blood Hemoglobin 9.8 Below low normal Hemoglobin, [facility] [Mass/volume] in {gm/dL} Whole Blood Health Blood System Erythrocyte mean 73.0 fl Below low normal MCV [facility] corpuscular Health volume [Entitic System volume] by Automated count Erythrocyte mean 31.9 Below low normal MCHC [facility] corpuscular {gm/dL} Health hemoglobin System concentration [Mass/volume] by Automated count Erythrocyte mean 23.3 pg Below low normal MCH [facility] corpuscular Health hemoglobin System [Entitic mass] by Automated count Erythrocyte 17.9 % Above high normal RDW [facility] distribution Health width [Entitic System volume] by Automated count Platelets 439 Above high normal Platelet [facility] [#/volume] in {10\\S\\3_ Count Health Plasma by uL} System Automated count Platelet mean 7.9 fl Normal (applies MPV [facility] volume [Entitic to non-numeric Health volume] in Blood results) System by Automated count ID Date Data Source [id number] 12/28/2010 12:00:00 AM EST [facility] Name Value Range Interpretation Description Data Sup porting Code Source(s) Document(s ) Sodium 136 Normal (applies Sodium, Serum [facility] [Moles/volume mmol/L to non-numeric Health Syst em ] in Serum or results) Plasma Potassium 4.1 Normal (applies Potassium, [facility] [Mass/volume] mmol/L to non-numeric Serum Health Syst em in Serum or results) Plasma Carbon 20.9 Below low normal CO2, Serum [facility] dioxide, mmol/L Health System total [Moles/volume ] in Serum or Plasma Chloride 106 Normal (applies Chloride, [facility] [Moles/volume mmol/L to non-numeric Serum Health Syst em ] in Serum or results) Plasma Urea nitrogen 4 mg/dl Below low normal Blood Urea [facility] [Mass/volume] Nitrogen, Health System in Serum or Serum Plasma Glucose 106 Normal (applies Glucose, Serum [facility] [Mass/volume] mg/dL to non-numeric Health Syst em in Serum or results) Plasma Creatinine 0.83 Normal (applies Creatinine, [facility] [Mass/volume] mg/dl to non-numeric Serum Health Syst em in Serum or results) Plasma Calcium 9.3 Normal (applies Calcium, Total [facility] [Mass/volume] mg/dl to non-numeric Serum Health Syst em in Serum or results) Plasma Anion gap in 9.10 Normal (applies Anion Gap [facility] Serum or mmol/L to non-numeric Health System Plasma results) ID Date Data Source [id number] 12/28/2010 12:00:00 AM EST [facility] Name Value Range Interpretation Description Data Sup porting Code Source(s) Document(s ) Phenytoin Below low normal Phenytoin [facility] [Mass/volume] Level, Serum Health System in Serum or Plasma ID Date Data Source [id number] 12/28/2010 12:00:00 AM EST [facility] Name Value Range Interpretation Description Data Sup porting Code Source(s) Document(s ) Magnesium 1.7 Normal (applies Magnesium, [facility] [Mass/volume] {mEq/L} to non-numeric Serum [facility] Syst [facility] in Serum or results) Plasma ID Date Data Source [id number] 12/28/2010 06:00:00 AM EST [facility] Name Value Range Interpretation Description Data Sup porting Code Source(s) Document(s ) Leukocytes 7.0 Normal (applies WBC Count [facility] [#/volume] in {10\\S\\3_ to non-numeric Health Unspecified uL} results) System specimen by Automated count Hemoglobin 9.9 Below low normal Hemoglobin, [facility] [Mass/volume] in {gm/dL} Whole Blood Health Blood System Erythrocytes 4.20 Normal (applies RBC Count [facility] [#/volume] in {10\\S\\6_ to non-numeric Health Blood by uL} results) System Automated count Hematocrit 30.9 % Below low normal Hematocrit, [facility] [Volume Whole Blood Health Fraction] of System Blood Erythrocyte mean 73.4 fl Below low normal MCV [facility] corpuscular Health volume [Entitic System volume] by Automated count Erythrocyte mean 32.0 Below low normal MCHC [facility] corpuscular {gm/dL} Health hemoglobin System concentration [Mass/volume] by Automated count Erythrocyte mean 23.5 pg Below low normal MCH [facility] corpuscular Health hemoglobin System [Entitic mass] by Automated count Erythrocyte 18.1 % Above high normal RDW [facility] distribution Health width [Entitic System volume] by Automated count Platelets 451 Above high normal Platelet [facility] [#/volume] in {10\\S\\3_ Count Health Plasma by uL} System Automated count Platelet mean 7.8 fl Normal (applies MPV [facility] volume [Entitic to non-numeric Health volume] in Blood results) System by Automated count ID Date Data Source [id number] 12/28/2010 06:00:00 AM EST [facility] Name Value Range Interpretation Description Data Sup porting Code Source(s) Document(s ) Sodium 137 Normal (applies Sodium, Serum [facility] [Moles/volume mmol/L to non-numeric Health Syst em ] in Serum or results) Plasma Chloride 107 Normal (applies Chloride, [facility] [Moles/volume mmol/L to non-numeric Serum Health Syst em ] in Serum or results) Plasma Potassium 4.6 Normal (applies Potassium, [facility] [Mass/volume] mmol/L to non-numeric Serum [facility] Syst em in Serum or results) Plasma Carbon 24.6 Normal (applies CO2, Serum [facility] dioxide, mmol/L to non-numeric Health System total results) [Moles/volume ] in Serum or Plasma Glucose 85 mg/dL Normal (applies Glucose, Serum [facility] [Mass/volume] to non-numeric Health Syst em in Serum or results) Plasma Urea nitrogen 3 mg/dl Below low normal Blood Urea [facility] [Mass/volume] Nitrogen, Health System in Serum or Serum Plasma Creatinine 0.84 Normal (applies Creatinine, [facility] [Mass/volume] mg/dl to non-numeric Serum Health Syst em in Serum or results) Plasma Calcium 9.2 Normal (applies Calcium, Total [facility] [Mass/volume] mg/dl to non-numeric Serum Health Syst em in Serum or results) Plasma Anion gap in 5.40 Normal (applies Anion Gap [facility] Serum or mmol/L to non-numeric Health System Plasma results) ID Date Data Source [id number] 12/28/2010 07:57:26 AM EST [facility] Name Value Range Interpretation Description Data Sup porting Code Source(s) Document(s ) Bacteria Cult Bacteria [facility] identified in Blood [facility] Blood by Aerobe culture ID Date Data Source [id number] 12/28/2010 07:58:12 AM EST [facility] Name Value Range Interpretation Description Data Sup porting Code Source(s) Document(s ) Bacteria Cult Bacteria [facility] identified in Blood [facility] Blood by Aerobe culture ID Date Data Source [id number] 12/29/2010 06:00:00 AM EST [facility] Name Value Range Interpretation Description Data Sup porting Code Source(s) Document(s ) Leukocytes 8.3 Normal (applies WBC Count [facility] [#/volume] in {10\\S\\3_ to non-numeric Health Unspecified uL} results) System specimen by Automated count Erythrocytes 4.49 Normal (applies RBC Count [facility] [#/volume] in {10\\S\\6_ to non-numeric Health Blood by uL} results) System Automated count Hematocrit 32.8 % Below low normal Hematocrit, [facility] [Volume Whole Blood Health Fraction] of System Blood Hemoglobin 10.3 Below low normal Hemoglobin, [facility] [Mass/volume] in {gm/dL} Whole Blood Health Blood System Erythrocyte mean 73.1 fl Below low normal MCV [facility] corpuscular Health volume [Entitic System volume] by Automated count Erythrocyte mean 23.0 pg Below low normal MCH [facility] corpuscular Health hemoglobin System [Entitic mass] by Automated count Erythrocyte mean 31.4 Below low normal MCHC [facility] corpuscular {gm/dL} Health hemoglobin System concentration [Mass/volume] by Automated count Platelets 317 Normal (applies Platelet [facility] [#/volume] in {10\\S\\3_ to non-numeric Count Health Plasma by uL} results) System Automated count Erythrocyte 18.0 % Above high normal RDW [facility] distribution Health width [Entitic System volume] by Automated count Monocytes 0.6 Normal (applies Monocyte [facility] [#/volume] in {10\\S\\3_ to non-numeric Count Health Blood by Manual uL} results) System count Platelet mean 8.8 fl Normal (applies MPV [facility] volume [Entitic to non-numeric Health volume] in Blood results) System by Automated count Eosinophils 0.1 Normal (applies Eosinophil [facility] [#/volume] in {10\\S\\3} to non-numeric Count Blood Health Blood results) System Basophils 0.00 Normal (applies Basophil [facility] [#/volume] in {10\\S\\3_ to non-numeric Count Health Blood by uL} results) System Automated count Lymphocyte 1.6 Normal (applies Lymphocyte [facility] percent {10\\S\\3_ to non-numeric Absolute Health differential uL} results) System count (procedure) Neutrophils 5.9 Normal (applies Absolute [facility] [#/volume] in {10\\S\\3_ to non-numeric Neutrophil Health Body fluid uL} results) Count System Neutrophils/100 71.5 % Normal (applies Neutrophil % [facility] leukocytes in to non-numeric Health Blood by results) System Automated count Monocytes/100 7 % Above high normal Monocyte % [facility] leukocytes in Health Blood System Eosinophils/100 1 % Normal (applies Eosinophil % [facility] leukocytes in to non-numeric Health Unspecified results) System specimen Basophils/100 1 % Normal (applies Basophil % [facility] leukocytes in to non-numeric Health Unspecified results) System specimen by Manual count Lymphocytes 19 % Normal (applies Lymphocyte % [facility] [#/volume] in to non-numeric Health Blood by results) System Automated count ID Date Data Source [id number] 12/29/2010 06:00:00 AM EST [facility] Name Value Range Interpretation Description Data Sup porting Code Source(s) Document(s ) Sodium 139 Normal (applies Sodium, Serum [facility] [Moles/volume mmol/L to non-numeric Health Syst em ] in Serum or results) Plasma Potassium 4.9 Normal (applies Potassium, [facility] [Mass/volume] mmol/L to non-numeric Serum Health Syst em in Serum or results) Plasma Chloride 104 Normal (applies Chloride, [facility] [Moles/volume mmol/L to non-numeric Serum Health Syst em ] in Serum or results) Plasma Carbon 26.4 Normal (applies CO2, Serum [facility] dioxide, mmol/L to non-numeric Health System total results) [Moles/volume ] in Serum or Plasma Urea nitrogen 4 mg/dl Below low normal Blood Urea [facility] [Mass/volume] Nitrogen, Health System in Serum or Serum Plasma Glucose 95 mg/dL Normal (applies Glucose, Serum [facility] [Mass/volume] to non-numeric Health Syst em in Serum or results) Plasma Calcium 9.6 Normal (applies Calcium, Total [facility] [Mass/volume] mg/dl to non-numeric Serum Health Syst em in Serum or results) Plasma Creatinine 0.95 Normal (applies Creatinine, [facility] [Mass/volume] mg/dl to non-numeric Serum Health Syst em in Serum or results) Plasma Anion gap in 8.60 Normal (applies Anion Gap [facility] Serum or mmol/L to non-numeric Health System Plasma results) ID Date Data Source [id number] 12/29/2010 06:00:00 AM EST [facility] Name Value Range Interpretation Description Data Sup porting Code Source(s) Document(s ) Erythrocytes RBC Count [facility] [#/volume] in Health System Blood by Automated count Leukocytes WBC Count [facility] [#/volume] in Health System Unspecified specimen by Automated count Hemoglobin Hemoglobin, [facility] [Mass/volume] in Whole Blood Health Syst em Blood Hematocrit Hematocrit, [facility] [Volume Whole Blood Health System Fraction] of Blood Erythrocyte mean MCV [facility] corpuscular [facility] volume [Entitic volume] by Automated count Erythrocyte mean MCHC [facility] corpuscular [facility] System hemoglobin concentration [Mass/volume] by Automated count Erythrocyte mean MCH [facility] corpuscular [facility] System hemoglobin [Entitic mass] by Automated count Platelets Platelet Count [facility] [#/volume] in Health System Plasma by Automated count Erythrocyte RDW [facility] distribution [facility] System width [Entitic volume] by Automated count Platelet mean MPV [facility] volume [Entitic Health System volume] in Blood by Automated count ID Date Data Source [id number] 12/29/2010 06:00:00 AM EST [facility] Name Value Range Interpretation Description Data Sup porting Code Source(s) Document(s ) Sodium 139 Normal (applies Sodium, Serum [facility] [Moles/volume mmol/L to non-numeric Health Syst em ] in Serum or results) Plasma Potassium 5.1 Above high normal Potassium, [facility] [Mass/volume] mmol/L Serum [facility] in Serum or Plasma Chloride 106 Normal (applies Chloride, [facility] [Moles/volume mmol/L to non-numeric Serum Health Syst em ] in Serum or results) Plasma Carbon 22.4 Normal (applies CO2, Serum [facility] dioxide, mmol/L to non-numeric Health System total results) [Moles/volume ] in Serum or Plasma Urea nitrogen 4 mg/dl Below low normal Blood Urea [facility] [Mass/volume] Nitrogen, Health System in Serum or Serum Plasma Glucose 89 mg/dL Normal (applies Glucose, Serum [facility] [Mass/volume] to non-numeric Health Syst em in Serum or results) Plasma Creatinine 0.96 Normal (applies Creatinine, [facility] [Mass/volume] mg/dl to non-numeric Serum Health Syst em in Serum or results) Plasma Calcium 9.7 Normal (applies Calcium, Total [facility] [Mass/volume] mg/dl to non-numeric Serum Health Syst em in Serum or results) Plasma Anion gap in 10.60 Normal (applies Anion Gap [facility] Serum or mmol/L to non-numeric Health System Plasma results) ID Date Data Source [id number] 12/29/2010 06:00:00 AM EST [facility] Name Value Range Interpretation Description Data Sup porting Code Source(s) Document(s ) Phenytoin Below low normal Phenytoin [facility] [Mass/volume] Level, Serum [facility] in Serum or Plasma ID Date Data Source [id number] 02/24/2011 12:00:00 AM EST [facility] Name Value Range Interpretation Description Data Source(s ) Supporting Code Document(s ) Pregnanc Negative Normal (applies to Test [facility] yTestUri non-numeric Urine, Health System ne,Visib results) Visibility ilityCol Color Complete orComple te ID Date Data Source [id number] 02/24/2011 12:00:00 AM EST [facility] Name Value Range Interpretation Description Data Sup porting Code Source(s) Document(s ) Color Yellow Normal (applies Color [facility] to non-numeric Health results) System Appearance of HAZY Normal (applies Urine [facility] Urine to non-numeric Appearance Health results) System Specific gravity 1.010 Normal (applies Urine Specific [facility] of Urine to non-numeric [facility] results) System pH.. 6.5 Normal (applies pH.. [facility] {pH_units} to non-numeric Health results) System Protein TR Normal (applies Protein [facility] [Mass/volume] in to non-numeric Health Serum or Plasma results) System Glucose,UA Negative Normal (applies Glucose, UA [facility] to non-numeric Health results) System BilirubinUrine Negative Normal (applies Bilirubin [facility] to non-numeric Urine Health results) System Ketones Negative Normal (applies Ketones UA [facility] [Mass/volume] in to non-numeric Health Urine results) System Urobilinogen Normal (applies Urobilinogen [facility] [Mass/volume] in to non-numeric UA Health Urine results) System Leukocyte Negative Normal (applies Leukocyte [facility] esterase to non-numeric Esterase Health [Units/volume] results) Concentration System in Urine Nitrate+Nitrite Negative Normal (applies Nitrite [facility] [Mass/volume] in to non-numeric Health Unspecified results) System specimen Leukocytes Normal (applies White Blood [facility] [#/volume] in to non-numeric Cells Health Unspecified results) System specimen by Automated count Epithelial cells 19 {/HPF} Normal (applies Epithelial [facility] [Presence] in to non-numeric Cells Health Unspecified results) System specimen by Wet preparation RedBloodCells 3 {/HPF} Normal (applies Red Blood [facility] to non-numeric Cells Health results) System Mucus RARE Normal (applies Mucus [facility] to non-numeric Health results) System UrineBlood Negative Normal (applies Urine Blood [facility] to non-numeric Health results) System Bacteria FEW Normal (applies Bacteria [facility] [Presence] in to non-numeric Health Unspecified results) System specimen ID Date Data Source [id number] 02/24/2011 12:00:00 AM EST [facility] Name Value Range Interpretation Description Data Sup porting Code Source(s) Document(s ) Amphetamine Negative Normal (applies Amphetamine [facility] [Mass/volume] in to non-numeric Level, Urine Healt h Urine results) System Benzodiazepines Negative Normal (applies Benzodiazepin [facility] [Mass/volume] in to non-numeric es, Urine Health Urine results) System Barbiturates Positive Abnormal Barbiturate [facility] [Mass/volume] in (applies to Screen, Urine Health Urine by Screen non-numeric System method results) Cocaine Positive Abnormal Cocaine [facility] metabolites.other (applies to Metabolite [facility] [Mass/volume] in non-numeric Screen, Urine System Urine results) Methadone Negative Normal (applies Methadone [facility] [Mass/volume] in to non-numeric Level, Urine Healt h Urine results) System [id number],Urine Negative Normal (applies Opiate 300, [facility] to non-numeric Urine Health results) System Phencyclidine Negative Normal (applies Phencyclidine [facility] [Mass/volume] in to non-numeric , Urine Health Urine results) System THC Negative Normal (applies THC [facility] to non-numeric Health results) System ID Date Data Source [id number] 02/24/2011 12:00:00 AM EST [facility] Name Value Range Interpretation Description Data Sup porting Code Source(s) Document(s ) Phenytoin Below low normal Phenytoin [facility] [Mass/volume] Level, Serum [facility] System in Serum or Plasma ID Date Data Source [id number] 02/24/2011 12:00:00 AM EST [facility] Name Value Range Interpretation Description Data Sup porting Code Source(s) Document(s ) Anisocytosis 2+ Abnormal (applies Anisocytosis [facility] [Presence] in to non-numeric Health Syst em Blood by results) Automated count BURRCells/Echin Few Normal (applies CHRISTINE Cells/ [facility] ocytes to non-numeric Echinocytes Health System results) OVAL Few Normal (applies OVAL [facility] to non-numeric [facility] System results) ID Date Data Source [id number] 02/24/2011 12:00:00 AM EST [facility] Name Value Range Interpretation Description Data Sup porting Code Source(s) Document(s ) Prothrombintim 11.80 Normal (applies Prothrombin [facility] e(PT) to non-numeric time (PT) Health System results) INR in Blood 1.04 Normal (applies INR Result [facility] by Coagulation {Ratio} to non-numeric Health Sys tem assay results) ID Date Data Source [id number] 02/24/2011 12:00:00 AM EST [facility] Name Value Range Interpretation Description Data Sup porting Code Source(s) Document(s ) Erythrocyte 8 Normal (applies Sedimentation [facility] sedimentation {mmlhr} to non-numeric Rate, Health rate by 2H results) Erythrocyte System Westergren method ID Date Data Source [id number] 02/24/2011 12:00:00 AM EST [facility] Name Value Range Interpretation Description Data Sup porting Code Source(s) Document(s ) Leukocytes 8.1 Normal (applies WBC Count [facility] [#/volume] in {10\\S\\3_ to non-numeric Health Unspecified uL} results) System specimen by Automated count Erythrocytes 4.97 Normal (applies RBC Count [facility] [#/volume] in {10\\S\\6_ to non-numeric Health Blood by uL} results) System Automated count Hemoglobin 12.1 Normal (applies Hemoglobin, [facility] [Mass/volume] in {gm/dL} to non-numeric Whole Blood Health Blood results) System Hematocrit 37.6 % Normal (applies Hematocrit, [facility] [Volume to non-numeric Whole Blood Health Fraction] of results) System Blood Erythrocyte mean 75.6 fl Below low normal MCV [facility] corpuscular Health volume [Entitic System volume] by Automated count Erythrocyte mean 24.3 pg Below low normal MCH [facility] corpuscular Health hemoglobin System [Entitic mass] by Automated count Erythrocyte mean 32.2 Below low normal [facility] [place] corpuscular {gm/dL} Health hemoglobin System concentration [Mass/volume] by Automated count Erythrocyte 28.3 % Above high normal RDW [facility] distribution Health width [Entitic System volume] by Automated count Platelets 444 Above high normal Platelet [facility] [#/volume] in {10\\S\\3_ Count Health Plasma by uL} System Automated count Platelet mean 8.4 fl Normal (applies MPV [facility] volume [Entitic to non-numeric Health volume] in Blood results) System by Automated count Monocytes 0.5 Normal (applies Monocyte [facility] [#/volume] in {10\\S\\3_ to non-numeric Count Health Blood by Manual uL} results) System count Eosinophils 0.2 Normal (applies Eosinophil [facility] [#/volume] in {10\\S\\3} to non-numeric Count Blood Health Blood results) System Neutrophils 5.4 Normal (applies Absolute [facility] [#/volume] in {10\\S\\3_ to non-numeric Neutrophil Health Body fluid uL} results) Count System Basophils 0.00 Normal (applies Basophil [facility] [#/volume] in {10\\S\\3_ to non-numeric Count Health Blood by uL} results) System Automated count Lymphocyte 2.1 Normal (applies Lymphocyte [facility] percent {10\\S\\3_ to non-numeric Absolute Health differential uL} results) System count (procedure) Neutrophils/100 66.4 % Normal (applies Neutrophil % [place] [facility] leukocytes in to non-numeric Health Blood by results) System Automated count Monocytes/100 6 % Above high normal Monocyte % [place] leukocytes in Health Blood System Eosinophils/100 2 % Normal (applies Eosinophil % [place] leukocytes in to non-numeric Health Unspecified results) System specimen Basophils/100 1 % Normal (applies Basophil % [place] [facility] leukocytes in to non-numeric Health Unspecified results) System specimen by Manual count Lymphocytes 26 % Normal (applies Lymphocyte % [place] [facility] [#/volume] in to non-numeric Health Blood by results) System Automated count ID Date Data Source [id number] 02/24/2011 12:00:00 AM EST [facility] System Name Value Range Interpretation Description Data Sup porting Code Source(s) Document(s ) Sodium 140 Normal (applies Sodium, Serum [facility] [Moles/volume] in mmol/L to non-numeric Health Serum or Plasma results) System Chloride 105 Normal (applies Chloride, [facility] [Moles/volume] in mmol/L to non-numeric Serum Health Serum or Plasma results) System Potassium 4.6 Normal (applies Potassium, [facility] [Mass/volume] in mmol/L to non-numeric Serum Health Serum or Plasma results) System Carbon dioxide, 25.4 Normal (applies CO2, Serum [facility] total mmol/L to non-numeric Health [Moles/volume] in results) System Serum or Plasma Glucose 100 Normal (applies Glucose, [facility] [Mass/volume] in mg/dL to non-numeric Serum Health Serum or Plasma results) System TotalProtein 7.1 Normal (applies Total Protein [facility] mg/dl to non-numeric Health results) System Urea nitrogen 3 mg/dl Below low normal Blood Urea [facility] [Mass/volume] in Nitrogen, Health Serum or Plasma Serum System Creatinine 0.75 Normal (applies Creatinine, [facility] [Mass/volume] in mg/dl to non-numeric Serum Health Serum or Plasma results) System Bilirubin.total 0.6 Normal (applies Bilirubin, [place] [Mass/volume] in mg/dl to non-numeric Serum Total Health Serum or Plasma results) System Alkaline 89 Normal (applies Alkaline [facility] phosphatase {IU/L} to non-numeric Phosphatase, Health isoenzymes results) Serum System [Enzymatic activity/volume] in Serum or Plasma by Heat stability Aspartate 28 Normal (applies Aspartate [facility] aminotransferase {IU/L} to non-numeric Transaminase, Heal th [Enzymatic results) Serum System activity/volume] in Serum or Plasma by With P-5'-P Albumin 4.0 Normal (applies Albumin, [facility] [Mass/volume] in {gm/dl} to non-numeric Serum Health Serum or Plasma results) System I.Phosphorus 3.8 Normal (applies I. Phosphorus [facility] mg/dl to non-numeric Health results) System Alanine 16 Normal (applies Alanine [facility] aminotransferase {IU/L} to non-numeric Aminotransfer Heal th [Enzymatic results) ase, Serum System activity/volume] in Serum or Plasma Calcium 10.0 Normal (applies Calcium, [facility] [Mass/volume] in mg/dl to non-numeric Total Serum Health Serum or Plasma results) System A/GRatio 1.29 Normal (applies A/G Ratio [facility] to non-numeric Health results) System Urate 5.7 Normal (applies Uric Acid, [facility] [Mass/volume] in mg/dl to non-numeric Serum Health Serum or Plasma results) System Anion gap in Serum 9.60 Normal (applies Anion Gap [place] [facility] or Plasma mmol/L to non-numeric Health results) System Glomerular Normal (applies GFR [facility] filtration to non-numeric Health rate/1.73 sq results) System M.predicted [Volume Rate/Area] in Serum or Plasma by Creatinine-based formula (CKD-EPI) ID Date Data Source [id number] 02/24/2011 12:00:00 AM EST [facility] System Name Value Range Interpretation Description Data Sup porting Code Source(s) Document(s ) Phenobarbital 55.7 Above upper PHENobarbital [facility] [Mass/volume] in ug/ml panic limits Level, Serum Health Serum or Plasma System ID Date Data Source [id number] 02/24/2011 07:47:00 PM [facility] [place] [facility] System Name Value Range Interpretation Description Data Sup porting Code Source(s) Document(s ) TroponinIQuantitative 0.01 Normal (applies Troponin I [facility] ng/ml to non-numeric Quantitative Health results) System ID Date Data Source [id number] 02/24/2011 07:47:00 PM EST [facility] [place] [facility] System Name Value Range Interpretation Description Data Sup porting Code Source(s) Document(s ) Creatine 107 Normal (applies Creatine [facility] kinase.MB {IU/L} to non-numeric Kinase, Serum Health Syst em [Mass/volume results) ] in Serum or Plasma ID Date Data Source [id number] 02/25/2011 06:00:00 AM EST [facility] [place] [facility] System Name Value Range Interpretation Description Data Sup porting Code Source(s) Document(s ) Leukocytes 5.9 Normal (applies WBC Count [facility] [#/volume] in {10\\S\\3_ to non-numeric Health Unspecified uL} results) System specimen by Automated count Erythrocytes 4.52 Normal (applies RBC Count [facility] [#/volume] in {10\\S\\6_ to non-numeric Health Blood by uL} results) System Automated count Hematocrit 34.2 % Below low normal Hematocrit, [facility] [Volume Whole Blood Health Fraction] of System Blood Hemoglobin 11.0 Below low normal Hemoglobin, [facility] [Mass/volume] in {gm/dL} Whole Blood Health Blood System Erythrocyte mean 75.8 fl Below low normal MCV [place] corpuscular Health volume [Entitic System volume] by Automated count Erythrocyte mean 24.3 pg Below low normal [facility] [place] corpuscular Health hemoglobin System [Entitic mass] by Automated count Erythrocyte mean 32.0 Below low normal [facility] [place] corpuscular {gm/dL} Health hemoglobin System concentration [Mass/volume] by Automated count Platelets 385 Normal (applies Platelet [facility] [#/volume] in {10\\S\\3_ to non-numeric Count Health Plasma by uL} results) System Automated count Erythrocyte 27.8 % Above high normal RDW [facility] distribution Health width [Entitic System volume] by Automated count Platelet mean 8.3 fl Normal (applies MPV [facility] volume [Entitic to non-numeric Health volume] in Blood results) System by Automated count Monocytes 0.4 Normal (applies Monocyte [facility] [#/volume] in {10\\S\\3_ to non-numeric Count Health Blood by Manual uL} results) System count Basophils 0.00 Normal (applies Basophil [facility] [#/volume] in {10\\S\\3_ to non-numeric Count Health Blood by uL} results) System Automated count Eosinophils 0.1 Normal (applies Eosinophil [facility] [#/volume] in {10\\S\\3} to non-numeric Count Blood Health Blood results) System Neutrophils 3.6 Normal (applies Absolute [facility] [#/volume] in {10\\S\\3_ to non-numeric Neutrophil Health Body fluid uL} results) Count System Lymphocyte 1.8 Normal (applies Lymphocyte [facility] percent {10\\S\\3_ to non-numeric Absolute Health differential uL} results) System count (procedure) Neutrophils/100 60.9 % Normal (applies Neutrophil % [place] leukocytes in to non-numeric Health Blood by results) System Automated count Monocytes/100 6 % Above high normal Monocyte % [place] leukocytes in Health Blood System Eosinophils/100 1 % Normal (applies Eosinophil % [place] leukocytes in to non-numeric Health Unspecified results) System specimen Basophils/100 1 % Normal (applies Basophil % [place] [facility] leukocytes in to non-numeric Health Unspecified results) System specimen by Manual count Lymphocytes 31 % Normal (applies Lymphocyte % [place] [facility] [#/volume] in to non-numeric Health Blood by results) System Automated count ID Date Data Source [id number] 02/25/2011 06:00:00 AM EST [facility] Name Value Range Interpretation Description Data Sup porting Code Source(s) Document(s ) Sodium 141 Normal (applies Sodium, Serum [facility] [Moles/volume mmol/L to non-numeric Health Syst em ] in Serum or results) Plasma Chloride 109 Normal (applies Chloride, [facility] [Moles/volume mmol/L to non-numeric Serum Health Syst em ] in Serum or results) Plasma Potassium 4.6 Normal (applies Potassium, [facility] [Mass/volume] mmol/L to non-numeric Serum Health Syst em in Serum or results) Plasma Carbon 26.2 Normal (applies CO2, Serum [facility] dioxide, mmol/L to non-numeric Health System total results) [Moles/volume ] in Serum or Plasma Glucose 94 mg/dL Normal (applies Glucose, Serum [facility] [Mass/volume] to non-numeric Health Syst em in Serum or results) Plasma Urea nitrogen 4 mg/dl Below low normal Blood Urea [facility] [Mass/volume] Nitrogen, Health System in Serum or Serum Plasma Creatinine 0.80 Normal (applies Creatinine, [facility] [Mass/volume] mg/dl to non-numeric Serum Health Syst em in Serum or results) Plasma Calcium 9.6 Normal (applies Calcium, Total [place] [facility] [Mass/volume] mg/dl to non-numeric Serum Health Syst em in Serum or results) Plasma Anion gap in 5.80 Normal (applies Anion Gap [facility] Serum or mmol/L to non-numeric Health System Plasma results) ID Date Data Source [id number] 03/29/2011 12:02:10 AM EST [facility] Name Value Range Interpretation Description Data Sup porting Code Source(s) Document(s ) Leukocytes 6.7 Normal (applies WBC Count [facility] [#/volume] in {10\\S\\3_ to non-numeric Health Unspecified uL} results) System specimen by Automated count Erythrocytes 4.30 Normal (applies RBC Count [facility] [#/volume] in {10\\S\\6_ to non-numeric Health Blood by uL} results) System Automated count Hemoglobin 10.8 Below low normal Hemoglobin, [facility] [Mass/volume] in {gm/dL} Whole Blood [facility] Blood System Hematocrit 33.3 % Below low normal Hematocrit, [facility] [Volume Whole Blood Health Fraction] of System Blood Erythrocyte mean 77.4 fl Below low normal MCV [place] corpuscular Health volume [Entitic System volume] by Automated count Erythrocyte mean 32.4 Below low normal [facility] [place] corpuscular {gm/dL} Health hemoglobin System concentration [Mass/volume] by Automated count Erythrocyte mean 25.1 pg Below low normal [facility] [place] corpuscular Health hemoglobin System [Entitic mass] by Automated count Erythrocyte 25.8 % Above high normal RDW [facility] distribution Health width [Entitic System volume] by Automated count Platelets 288 Normal (applies Platelet [facility] [#/volume] in {10\\S\\3_ to non-numeric Count Health Plasma by uL} results) System Automated count Platelet mean 8.4 fl Normal (applies MPV [facility] volume [Entitic to non-numeric Health volume] in Blood results) System by Automated count ID Date Data Source [id number] 03/29/2011 12:18:29 AM EST [facility] Name Value Range Interpretation Description Data Sup porting Code Source(s) Document(s ) Sodium 138 Normal (applies Sodium, Serum [facility] [Moles/volume mmol/L to non-numeric Health Syst em ] in Serum or results) Plasma Potassium 3.4 Below low normal Potassium, [facility] [Mass/volume] mmol/L Serum Health System in Serum or Plasma Chloride 104 Normal (applies Chloride, [facility] [Moles/volume mmol/L to non-numeric Serum Health Syst em ] in Serum or results) Plasma Carbon 27.4 Normal (applies CO2, Serum [facility] dioxide, mmol/L to non-numeric Health System total results) [Moles/volume ] in Serum or Plasma Glucose 112 Above high normal Glucose, Serum [facility] [Mass/volume] mg/dL Health System in Serum or Plasma Urea nitrogen 7 mg/dl Normal (applies Blood Urea [place] [facility] [Mass/volume] to non-numeric Nitrogen, Health Syst em in Serum or results) Serum Plasma Creatinine 0.60 Normal (applies Creatinine, [facility] [Mass/volume] mg/dl to non-numeric Serum Health Syst em in Serum or results) Plasma Calcium 8.6 Normal (applies Calcium, Total [place] [facility] [Mass/volume] mg/dl to non-numeric Serum Health Syst em in Serum or results) Plasma Anion gap in 6.60 Normal (applies Anion Gap [facility] Serum or mmol/L to non-numeric Health System Plasma results) ID Date Data Source [id number] 03/29/2011 12:18:29 AM EST [facility] System Name Value Range Interpretation Description Data Sup porting Code Source(s) Document(s ) TroponinIQuantitative 0.02 Normal (applies Troponin I [facility] ng/ml to non-numeric Quantitative Health results) System ID Date Data Source [id number] 03/29/2011 12:18:29 AM EST [facility] System Name Value Range Interpretation Description Data Sup porting Code Source(s) Document(s ) Creatine 90 {IU/L} Normal (applies Creatine [facility] kinase.MB to non-numeric Kinase, Serum Health Syst em [Mass/volume results) ] in Serum or Plasma ID Date Data Source [id number] 05/18/2011 04:06:00 PM EDT [facility] Name Value Range Interpretation Description Data Sup porting Code Source(s) Document(s ) Polychromasia Slight Abnormal (applies Polychromasia [place] [facility] [Presence] in to non-numeric Health Blood by Light results) System microscopy Hypochroma Slight Normal (applies Hypochroma [facility] to non-numeric Health results) System MACRO Slight Abnormal (applies MACRO [facility] to non-numeric Health results) System Anisocytosis Slight Normal (applies Anisocytosis [facility] [Presence] in to non-numeric Health Blood by results) System Automated count ID Date Data Source [id number] 05/18/2011 04:06:00 PM EDT [facility] System Name Value Range Interpretation Description Data Sup porting Code Source(s) Document(s ) Type B Normal (applies Type [facility] to non-numeric Health results) System D Ab [Titer] in Normal (applies Rh Factor, [facility] Serum or Plasma to non-numeric Whole Blood Health results) System AntibodyScreen Negative Normal (applies Antibody [facility] to non-numeric Screen Health results) System ID Date Data Source [id number] 05/18/2011 04:06:00 PM EDT [facility] Name Value Range Interpretation Description Data Sup porting Code Source(s) Document(s ) Leukocytes 6.3 Normal (applies WBC Count [facility] [#/volume] in {10\\S\\3_ to non-numeric Health Unspecified uL} results) System specimen by Automated count Erythrocytes 4.26 Normal (applies RBC Count [facility] [#/volume] in {10\\S\\6_ to non-numeric Health Blood by uL} results) System Automated count Hemoglobin 10.4 Below low normal Hemoglobin, [facility] [Mass/volume] in {gm/dL} Whole Blood Health Blood System Hematocrit 33.0 % Below low normal Hematocrit, [facility] [Volume Whole Blood Health Fraction] of System Blood Erythrocyte mean 77.4 fl Below low normal MCV [place] corpuscular Health volume [Entitic System volume] by Automated count Erythrocyte mean 24.4 pg Below low normal [facility] [place] corpuscular Health hemoglobin System [Entitic mass] by Automated count Erythrocyte mean 31.5 Below low normal [facility] [place] corpuscular {gm/dL} Health hemoglobin System concentration [Mass/volume] by Automated count Erythrocyte 19.4 % Above high normal RDW [facility] distribution Health width [Entitic System volume] by Automated count Platelets 442 Above high normal Platelet [facility] [#/volume] in {10\\S\\3_ Count Health Plasma by uL} System Automated count Platelet mean 8.1 fl Normal (applies MPV [facility] volume [Entitic to non-numeric Health volume] in Blood results) System by Automated count Monocytes 0.4 Normal (applies Monocyte [facility] [#/volume] in {10\\S\\3_ to non-numeric Count Health Blood by Manual uL} results) System count Eosinophils 0.1 Normal (applies Eosinophil [facility] [#/volume] in {10\\S\\3} to non-numeric Count Blood Health Blood results) System Neutrophils 4.4 Normal (applies Absolute [facility] [#/volume] in {10\\S\\3_ to non-numeric Neutrophil Health Body fluid uL} results) Count System Basophils 0.00 Normal (applies Basophil [facility] [#/volume] in {10\\S\\3_ to non-numeric Count Health Blood by uL} results) System Automated count Lymphocyte 1.5 Normal (applies Lymphocyte [facility] percent {10\\S\\3_ to non-numeric Absolute Health differential uL} results) System count (procedure) Neutrophils/100 68.7 % Normal (applies Neutrophil % [place] [facility] leukocytes in to non-numeric Health Blood by results) System Automated count Monocytes/100 6 % Normal (applies Monocyte % [facility] [facility] leukocytes in to non-numeric Health Blood results) System Eosinophils/100 1 % Normal (applies Eosinophil % [place] leukocytes in to non-numeric Health Unspecified results) System specimen Basophils/100 0 % Normal (applies Basophil % [place] leukocytes in to non-numeric Health Unspecified results) System specimen by Manual count Lymphocytes 24 % Normal (applies Lymphocyte % [place] [facility] [#/volume] in to non-numeric Health Blood by results) System Automated count ID Date Data Source [id number] 05/18/2011 04:06:00 PM EDT [facility] System Name Value Range Interpretation Description Data Sup porting Code Source(s) Document(s ) Sodium 139 Normal (applies Sodium, Serum [facility] [Moles/volume] in mmol/L to non-numeric Health Serum or Plasma results) System Potassium 4.1 Normal (applies Potassium, [facility] [Mass/volume] in mmol/L to non-numeric Serum Health Serum or Plasma results) System Chloride 108 Normal (applies Chloride, [facility] [Moles/volume] in mmol/L to non-numeric Serum Health Serum or Plasma results) System Carbon dioxide, 24.9 Normal (applies CO2, Serum [facility] total mmol/L to non-numeric Health [Moles/volume] in results) System Serum or Plasma TotalProtein 6.0 Below low normal Total Protein [facility] [place] mg/dl Health System Glucose 91 Normal (applies Glucose, [facility] [Mass/volume] in mg/dL to non-numeric Serum Health Serum or Plasma results) System Urea nitrogen 2 mg/dl Below low normal Blood Urea [facility] [Mass/volume] in Nitrogen, Health Serum or Plasma Serum System Creatinine 0.74 Normal (applies Creatinine, [facility] [Mass/volume] in mg/dl to non-numeric Serum Health Serum or Plasma results) System Alkaline 64 Normal (applies Alkaline [facility] phosphatase {IU/L} to non-numeric Phosphatase, [facility] isoenzymes results) Serum System [Enzymatic activity/volume] in Serum or Plasma by Heat stability Bilirubin.total 0.5 Normal (applies Bilirubin, [place] [Mass/volume] in mg/dl to non-numeric Serum Total Health Serum or Plasma results) System Aspartate 18 Normal (applies Aspartate [facility] aminotransferase {IU/L} to non-numeric Transaminase, Heal th [Enzymatic results) Serum System activity/volume] in Serum or Plasma by With P-5'-P Albumin 3.3 Normal (applies Albumin, [facility] [Mass/volume] in {gm/dl} to non-numeric Serum Health Serum or Plasma results) System I.Phosphorus 2.3 Below low normal I. Phosphorus [facility] mg/dl Health System Alanine 14 Normal (applies Alanine [facility] aminotransferase {IU/L} to non-numeric Aminotransfer Heal th [Enzymatic results) ase, Serum System activity/volume] in Serum or Plasma Calcium 9.3 Normal (applies Calcium, [facility] [Mass/volume] in mg/dl to non-numeric Total Serum Health Serum or Plasma results) System A/GRatio 1.22 Normal (applies A/G Ratio [facility] to non-numeric Health results) System Urate 5.4 Normal (applies Uric Acid, [facility] [Mass/volume] in mg/dl to non-numeric Serum Health Serum or Plasma results) System Anion gap in Serum 6.10 Normal (applies Anion Gap [place] [facility] or Plasma mmol/L to non-numeric Health results) System Glomerular Normal (applies GFR [facility] filtration to non-numeric Health rate/1.73 sq results) System M.predicted [Volume Rate/Area] in Serum or Plasma by Creatinine-based formula (CKD-EPI) ID Date Data Source [id number] 05/18/2011 04:06:00 PM EDT [facility] System Name Value Range Interpretation Description Data Sup porting Code Source(s) Document(s ) TroponinIQuantitative 0.00 Normal (applies Troponin I [facility] ng/ml to non-numeric Quantitative Health results) System ID Date Data Source [id number] 05/18/2011 04:06:00 PM EDT [facility] System Name Value Range Interpretation Description Data Sup porting Code Source(s) Document(s ) Creatine 86 {IU/L} Normal (applies Creatine [facility] kinase.MB to non-numeric Kinase, Serum Health Syst em [Mass/volume results) ] in Serum or Plasma ID Date Data Source [id number] 05/18/2011 05:10:00 PM EDT [facility] System Name Value Range Interpretation Description Data Sup porting Code Source(s) Document(s ) Phenobarbital 45.5 Above high PHENobarbital [facility] [Mass/volume] in ug/ml normal Level, Serum Health Serum or Plasma System ID Date Data Source [id number] 05/18/2011 06:06:00 PM EDT [facility] System Name Value Range Interpretation Description Data Sup porting Code Source(s) Document(s ) Color Yellow Normal (applies Color [facility] to non-numeric Health results) System Appearance of HAZY Normal (applies Urine [facility] Urine to non-numeric Appearance Health results) System Specific gravity 1.016 Normal (applies Urine Specific [place] of Urine to non-numeric [place] [facility] results) System pH.. 7.5 Normal (applies pH.. [facility] {pH_units} to non-numeric Health results) System Glucose,UA Negative Normal (applies Glucose, UA [facility] to non-numeric Health results) System Protein TR Normal (applies Protein [facility] [Mass/volume] in to non-numeric Health Serum or Plasma results) System BilirubinUrine Negative Normal (applies Bilirubin [facility] to non-numeric Urine Health results) System Urobilinogen Normal (applies Urobilinogen [facility] [Mass/volume] in to non-numeric UA Health Urine results) System Ketones Negative Normal (applies Ketones UA [facility] [Mass/volume] in to non-numeric Health Urine results) System Nitrate+Nitrite Negative Normal (applies Nitrite [facility] [Mass/volume] in to non-numeric Health Unspecified results) System specimen Leukocyte Negative Normal (applies Leukocyte [facility] esterase to non-numeric Esterase Health [Units/volume] results) Concentration System in Urine Leukocytes Normal (applies White Blood [facility] [#/volume] in to non-numeric Cells Health Unspecified results) System specimen by Automated count RedBloodCells 5 {/HPF} Normal (applies Red Blood [facility] to non-numeric Cells Health results) System Epithelial cells 12 {/HPF} Normal (applies Epithelial [facility] [facility] [Presence] in to non-numeric Cells Health Unspecified results) System specimen by Wet preparation Mucus RARE Normal (applies Mucus [facility] to non-numeric Health results) System UrineBlood Negative Normal (applies Urine Blood [facility] to non-numeric Health results) System Non-SquamousEpit Normal (applies Non-Squamous [place] [facility] helial to non-numeric Epithelial Health results) System ID Date Data Source [id number] 05/18/2011 07:13:00 PM EDT [facility] System Name Value Range Interpretation Description Data Sup porting Code Source(s) Document(s ) Amphetamine Negative Normal (applies Amphetamine [facility] [Mass/volume] in to non-numeric Level, Urine Healt h Urine results) System Barbiturates Positive Abnormal Barbiturate [facility] [Mass/volume] in (applies to Screen, Urine Health Urine by Screen non-numeric System method results) Benzodiazepines Negative Normal (applies Benzodiazepin [place] [facility] [Mass/volume] in to non-numeric es, Urine Health Urine results) System Cocaine Positive Abnormal Cocaine [facility] metabolites.other (applies to Metabolite Health [Mass/volume] in non-numeric Screen, Urine System Urine results) Methadone Negative Normal (applies Methadone [facility] [Mass/volume] in to non-numeric Level, Urine Healt h Urine results) System [id number],Urine Positive Abnormal Opiate 300, [facility] (applies to Urine Health non-numeric System results) Phencyclidine Negative Normal (applies Phencyclidine [facility] [Mass/volume] in to non-numeric , Urine Health Urine results) System THC Negative Normal (applies THC [facility] to non-numeric Health results) System ID Date Data Source [id number] 05/19/2011 06:00:00 AM EDT [facility] Name Value Range Interpretation Description Data Sup porting Code Source(s) Document(s ) Leukocytes 5.0 Normal (applies WBC Count [facility] [#/volume] in {10\\S\\3_ to non-numeric Health Unspecified uL} results) System specimen by Automated count Erythrocytes 4.23 Normal (applies RBC Count [facility] [#/volume] in {10\\S\\6_ to non-numeric Health Blood by uL} results) System Automated count Hemoglobin 10.4 Below low normal Hemoglobin, [facility] [Mass/volume] in {gm/dL} Whole Blood Health Blood System Hematocrit 32.7 % Below low normal Hematocrit, [facility] [Volume Whole Blood Health Fraction] of System Blood Erythrocyte mean 77.3 fl Below low normal MCV [facility] corpuscular Health volume [Entitic System volume] by Automated count Erythrocyte mean 24.6 pg Below low normal MCH [facility] corpuscular Health hemoglobin System [Entitic mass] by Automated count Erythrocyte mean 31.8 Below low normal MCHC [facility] corpuscular {gm/dL} Health hemoglobin System concentration [Mass/volume] by Automated count Erythrocyte 19.2 % Above high normal RDW [facility] distribution Health width [Entitic System volume] by Automated count Platelets 468 Above high normal Platelet [facility] [#/volume] in {10\\S\\3_ Count Health Plasma by uL} System Automated count Platelet mean 8.2 fl Normal (applies MPV [facility] volume [Entitic to non-numeric Health volume] in Blood results) System by Automated count Monocytes 0.3 Normal (applies Monocyte [facility] [#/volume] in {10\\S\\3_ to non-numeric Count Health Blood by Manual uL} results) System count Eosinophils 0.1 Normal (applies Eosinophil [facility] [#/volume] in {10\\S\\3} to non-numeric Count Blood Health Blood results) System Basophils 0.00 Normal (applies Basophil [facility] [#/volume] in {10\\S\\3_ to non-numeric Count Health Blood by uL} results) System Automated count Neutrophils 3.1 Normal (applies Absolute [facility] [#/volume] in {10\\S\\3_ to non-numeric Neutrophil Health Body fluid uL} results) Count System Lymphocyte 1.5 Normal (applies Lymphocyte [facility] percent {10\\S\\3_ to non-numeric Absolute Health differential uL} results) System count (procedure) Neutrophils/100 61.3 % Normal (applies Neutrophil % [facility] leukocytes in to non-numeric Health Blood by results) System Automated count Monocytes/100 6 % Above high normal Monocyte % [facility] leukocytes in Health Blood System Eosinophils/100 2 % Normal (applies Eosinophil % [facility] leukocytes in to non-numeric Health Unspecified results) System specimen Basophils/100 0 % Normal (applies Basophil % [facility] leukocytes in to non-numeric Health Unspecified results) System specimen by Manual count Lymphocytes 31 % Normal (applies Lymphocyte % [facility] [#/volume] in to non-numeric Health Blood by results) System Automated count ID Date Data Source [id number] 05/19/2011 06:00:00 AM EDT [facility] Name Value Range Interpretation Description Data Sup porting Code Source(s) Document(s ) Sodium 138 Normal (applies Sodium, Serum [facility] [Moles/volume mmol/L to non-numeric Health Syst em ] in Serum or results) Plasma Potassium 4.5 Normal (applies Potassium, [facility] [Mass/volume] mmol/L to non-numeric Serum Health Syst em in Serum or results) Plasma Chloride 108 Normal (applies Chloride, [facility] [Moles/volume mmol/L to non-numeric Serum Health Syst em ] in Serum or results) Plasma Carbon 24.9 Normal (applies CO2, Serum [facility] dioxide, mmol/L to non-numeric Health System total results) [Moles/volume ] in Serum or Plasma Glucose 84 mg/dL Normal (applies Glucose, Serum [facility] [Mass/volume] to non-numeric Health Syst em in Serum or results) Plasma Urea nitrogen 0 mg/dl Below low normal Blood Urea [facility] [Mass/volume] Nitrogen, Health System in Serum or Serum Plasma Creatinine 0.73 Normal (applies Creatinine, [facility] [Mass/volume] mg/dl to non-numeric Serum Health Syst em in Serum or results) Plasma Calcium 9.1 Normal (applies Calcium, Total [facility] [Mass/volume] mg/dl to non-numeric Serum Health Syst em in Serum or results) Plasma Anion gap in 5.10 Normal (applies Anion Gap [facility] Serum or mmol/L to non-numeric Health System Plasma results) ID Date Data Source [id number] 05/19/2011 06:00:00 AM EDT [facility] System Name Value Range Interpretation Description Data Sup porting Code Source(s) Document(s ) Phenobarbital 39.8 Normal (applies PHENobarbital [facility] [Mass/volume] in ug/ml to non-numeric Level, Serum Healt h Serum or Plasma results) System ID Date Data Source [id number] 05/19/2011 06:00:00 AM EDT [facility] System Name Value Range Interpretation Description Data Sup porting Code Source(s) Document(s ) Transferrin 276.0 Normal (applies Transferrin, [facility] [Mass/volume] mg/dl to non-numeric Serum Health Syst em in Serum or results) Plasma ID Date Data Source [id number] 05/19/2011 06:00:00 AM EDT [facility] System Name Value Range Interpretation Description Data Source(s ) Supporting Code Document(s ) Iron 14 ug/dL Below low normal Iron, Serum [facility] [Mass/volum Health System e] in Serum or Plasma ID Date Data Source [id number] 05/19/2011 06:00:00 AM EDT [facility] System Name Value Range Interpretation Description Data Sup porting Code Source(s) Document(s ) Ferritin 3.9 ng/ml Below low normal Ferritin, [facility] [Mass/volume Serum Health System ] in Serum or Plasma ID Date Data Source [id number] 05/19/2011 07:03:00 AM EDT [facility] System Add-on Name Value Range Interpretation Description Data Source(s ) Supporting Code Document(s ) Iron 12 ug/dL Below low normal Iron, Serum [facility] [Mass/volum Health System e] in Serum or Plasma ID Date Data Source [id number] 05/19/2011 07:03:00 AM EDT [facility] System Add-on Name Value Range Interpretation Description Data Sup porting Code Source(s) Document(s ) Ferritin 3.1 ng/ml Below low normal Ferritin, [facility] [Mass/volume Serum Health System ] in Serum or Plasma ID Date Data Source [id number] 05/19/2011 03:59:00 PM EDT [facility] System Name Value Range Interpretation Description Data Source(s ) Supporting Code Document(s ) Pregnanc Negative Normal (applies to Test [facility] yTestUri non-numeric Urine, Health System ne,Visib results) Visibility ilityCol Color Complete orComple te ID Date Data Source [id number] 05/20/2011 06:00:00 AM EDT [facility] System Name Value Range Interpretation Description Data Sup porting Code Source(s) Document(s ) Leukocytes 4.7 Below low normal WBC Count [facility] [#/volume] in {10\\S\\3_ Health Unspecified uL} System specimen by Automated count Erythrocytes 4.26 Normal (applies RBC Count [facility] [#/volume] in {10\\S\\6_ to non-numeric Health Blood by uL} results) System Automated count Hemoglobin 10.5 Below low normal Hemoglobin, [facility] [Mass/volume] in {gm/dL} Whole Blood Health Blood System Hematocrit 32.9 % Below low normal Hematocrit, [facility] [Volume Whole Blood Health Fraction] of System Blood Erythrocyte mean 77.2 fl Below low normal MCV [facility] corpuscular Health volume [Entitic System volume] by Automated count Erythrocyte mean 24.6 pg Below low normal MCH [facility] corpuscular Health hemoglobin System [Entitic mass] by Automated count Erythrocyte mean 31.9 Below low normal MCHC [facility] corpuscular {gm/dL} Health hemoglobin System concentration [Mass/volume] by Automated count Erythrocyte 19.6 % Above high normal RDW [facility] distribution Health width [Entitic System volume] by Automated count Platelets 432 Above high normal Platelet [facility] [#/volume] in {10\\S\\3_ Count Health Plasma by uL} System Automated count Platelet mean 8.3 fl Normal (applies MPV [facility] volume [Entitic to non-numeric Health volume] in Blood results) System by Automated count Monocytes 0.3 Normal (applies Monocyte [facility] [#/volume] in {10\\S\\3_ to non-numeric Count Health Blood by Manual uL} results) System count Eosinophils 0.1 Normal (applies Eosinophil [facility] [#/volume] in {10\\S\\3} to non-numeric Count Blood Health Blood results) System Neutrophils 2.3 Below low normal Absolute [facility] [#/volume] in {10\\S\\3_ Neutrophil Health Body fluid uL} Count System Basophils 0.00 Normal (applies Basophil [facility] [#/volume] in {10\\S\\3_ to non-numeric Count Health Blood by uL} results) System Automated count Lymphocyte 1.9 Normal (applies Lymphocyte [facility] percent {10\\S\\3_ to non-numeric Absolute Health differential uL} results) System count (procedure) Neutrophils/100 49.6 % Below low normal Neutrophil % [facility] leukocytes in Health Blood by System Automated count Monocytes/100 7 % Above high normal Monocyte % [facility] leukocytes in Health Blood System Eosinophils/100 2 % Normal (applies Eosinophil % [facility] leukocytes in to non-numeric Health Unspecified results) System specimen Basophils/100 1 % Normal (applies Basophil % [facility] leukocytes in to non-numeric Health Unspecified results) System specimen by Manual count Lymphocytes 41 % Normal (applies Lymphocyte % [facility] [#/volume] in to non-numeric Health Blood by results) System Automated count ID Date Data Source [id number] 05/20/2011 06:00:00 AM EDT [facility] Name Value Range Interpretation Description Data Sup porting Code Source(s) Document(s ) Sodium 139 Normal (applies Sodium, Serum [facility] [Moles/volume mmol/L to non-numeric Health Syst em ] in Serum or results) Plasma Potassium 4.1 Normal (applies Potassium, [facility] [Mass/volume] mmol/L to non-numeric Serum Health Syst em in Serum or results) Plasma Chloride 107 Normal (applies Chloride, [facility] [Moles/volume mmol/L to non-numeric Serum Health Syst em ] in Serum or results) Plasma Carbon 26.3 Normal (applies CO2, Serum [facility] dioxide, mmol/L to non-numeric Health System total results) [Moles/volume ] in Serum or Plasma Glucose 83 mg/dL Normal (applies Glucose, Serum [facility] [Mass/volume] to non-numeric Health Syst em in Serum or results) Plasma Urea nitrogen 2 mg/dl Below low normal Blood Urea [facility] [Mass/volume] Nitrogen, Health System in Serum or Serum Plasma Creatinine 0.84 Normal (applies Creatinine, [facility] [Mass/volume] mg/dl to non-numeric Serum Health Syst em in Serum or results) Plasma Calcium 9.1 Normal (applies Calcium, Total [facility] [Mass/volume] mg/dl to non-numeric Serum Health Syst em in Serum or results) Plasma Anion gap in 5.70 Normal (applies Anion Gap [facility] Serum or mmol/L to non-numeric Health System Plasma results) ID Date Data Source [id number] 2011 12:37:00 AM EDT [facility] Name Value Range Interpretation Description Data Sup porting Code Source(s) Document(s ) Hypochroma 1+ Abnormal Hypochroma [facility] (applies to Health non-numeric System results) Poikilocytosis 1+ Abnormal Poikilocytosis [facility] [Presence] in (applies to Health Blood by non-numeric System Automated count results) Anisocytosis 2+ Abnormal Anisocytosis [facility] [Presence] in (applies to Health Blood by non-numeric System Automated count results) Target cells Few Normal (applies Target Cells [facility] [Presence] in to non-numeric Health Blood by Light results) System microscopy BUR[place]ells/[place]ch[place] Few Normal (applies CHRISTINE Cells/ Jono savi cytes to non-numeric Echinocytes Health results) System Microcytes 2+ Abnormal Microcytosis [facility] [Presence] in (applies to Health Blood by non-numeric System Automated count results) OVAL Few Normal (applies OVAL [facility] to non-numeric Health results) System ID Date Data Source [id number] 2011 12:37:00 AM EDT [facility] System Name Value Range Interpretation Description Data Sup porting Code Source(s) Document(s ) Leukocytes 8.4 Normal (applies WBC Count [facility] [#/volume] in {10\\S\\3_ to non-numeric Health Unspecified uL} results) System specimen by Automated count Erythrocytes 4.70 Normal (applies RBC Count [facility] [#/volume] in {10\\S\\6_ to non-numeric Health Blood by uL} results) System Automated count Hemoglobin 11.3 Below low normal Hemoglobin, [facility] [Mass/volume] in {gm/dL} Whole Blood Health Blood System Hematocrit 35.5 % Below low normal Hematocrit, [facility] [Volume Whole Blood Health Fraction] of System Blood Erythrocyte mean 75.5 fl Below low normal MCV [facility] corpuscular Health volume [Entitic System volume] by Automated count Erythrocyte mean 24.1 pg Below low normal MCH [facility] corpuscular Health hemoglobin System [Entitic mass] by Automated count Erythrocyte mean 31.9 Below low normal MCHC [facility] corpuscular {gm/dL} Health hemoglobin System concentration [Mass/volume] by Automated count Erythrocyte 18.3 % Above high normal RDW [facility] distribution Health width [Entitic System volume] by Automated count Platelets 470 Above high normal Platelet [facility] [#/volume] in {10\\S\\3_ Count Health Plasma by uL} System Automated count Platelet mean 8.4 fl Normal (applies MPV [facility] volume [Entitic to non-numeric Health volume] in Blood results) System by Automated count Monocytes 0.5 Normal (applies Monocyte [facility] [#/volume] in {10\\S\\3_ to non-numeric Count Health Blood by Manual uL} results) System count Eosinophils 0.0 Normal (applies Eosinophil [facility] [#/volume] in {10\\S\\3} to non-numeric Count Blood Health Blood results) System Neutrophils 5.9 Normal (applies Absolute [facility] [#/volume] in {10\\S\\3_ to non-numeric Neutrophil Health Body fluid uL} results) Count System Basophils 0.00 Normal (applies Basophil [facility] [#/volume] in {10\\S\\3_ to non-numeric Count Health Blood by uL} results) System Automated count Lymphocyte 1.8 Normal (applies Lymphocyte [facility] percent {10\\S\\3_ to non-numeric Absolute Health differential uL} results) System count (procedure) Neutrophils/100 70.7 % Normal (applies Neutrophil % [facility] leukocytes in to non-numeric Health Blood by results) System Automated count Monocytes/100 6.3 % Above high normal Monocyte % [facility] leukocytes in Health Blood System Eosinophils/100 0.5 % Below low normal Eosinophil % [facility] [facility] leukocytes in Health Unspecified System specimen Basophils/100 0.6 % Normal (applies Basophil % [facility] leukocytes in to non-numeric Health Unspecified results) System specimen by Manual count Lymphocytes 21.9 % Normal (applies Lymphocyte % [facility] [#/volume] in to non-numeric Health Blood by results) System Automated count ID Date Data Source [id number] 2011 12:37:00 AM EDT [facility] Name Value Range Interpretation Description Data Sup porting Code Source(s) Document(s ) Sodium 139 Normal (applies Sodium, Serum [facility] [Moles/volume] in mmol/L to non-numeric Health Serum or Plasma results) System Potassium 3.9 Normal (applies Potassium, [facility] [Mass/volume] in mmol/L to non-numeric Serum Health Serum or Plasma results) System Chloride 106 Normal (applies Chloride, [facility] [Moles/volume] in mmol/L to non-numeric Serum Health Serum or Plasma results) System Carbon dioxide, 24.6 Normal (applies CO2, Serum [facility] total mmol/L to non-numeric Health [Moles/volume] in results) System Serum or Plasma TotalProtein 7.1 Normal (applies Total Protein [facility] mg/dl to non-numeric Health results) System Glucose 116 Above high Glucose, [facility] [Mass/volume] in mg/dL normal Serum Health Serum or Plasma System Urea nitrogen 8 mg/dl Normal (applies Blood Urea [facility] [Mass/volume] in to non-numeric Nitrogen, Health Serum or Plasma results) Serum System Creatinine 0.88 Normal (applies Creatinine, [facility] [Mass/volume] in mg/dl to non-numeric Serum Health Serum or Plasma results) System Alkaline 74 Normal (applies Alkaline [facility] phosphatase {IU/L} to non-numeric Phosphatase, Health isoenzymes results) Serum System [Enzymatic activity/volume] in Serum or Plasma by Heat stability Bilirubin.total 0.4 Normal (applies Bilirubin, [facility] [Mass/volume] in mg/dl to non-numeric Serum Total Health Serum or Plasma results) System Aspartate 19 Normal (applies Aspartate [facility] aminotransferase {IU/L} to non-numeric Transaminase, Heal th [Enzymatic results) Serum System activity/volume] in Serum or Plasma by With P-5'-P Albumin 4.0 Normal (applies Albumin, [facility] [Mass/volume] in {gm/dl} to non-numeric Serum Health Serum or Plasma results) System I.Phosphorus 3.0 Normal (applies I. Phosphorus [facility] mg/dl to non-numeric Health results) System Alanine 14 Normal (applies Alanine [facility] aminotransferase {IU/L} to non-numeric Aminotransfer Heal th [Enzymatic results) ase, Serum System activity/volume] in Serum or Plasma Calcium 10.1 Normal (applies Calcium, [facility] [Mass/volume] in mg/dl to non-numeric Total Serum Health Serum or Plasma results) System A/GRatio 1.29 Normal (applies A/G Ratio [facility] to non-numeric Health results) System Urate 5.0 Normal (applies Uric Acid, [facility] [Mass/volume] in mg/dl to non-numeric Serum Health Serum or Plasma results) System Anion gap in Serum 8.40 Normal (applies Anion Gap [facility] or Plasma mmol/L to non-numeric Health results) System Glomerular Normal (applies GFR [facility] filtration to non-numeric Health rate/1.73 sq results) System M.predicted [Volume Rate/Area] in Serum or Plasma by Creatinine-based formula (CKD-EPI) ID Date Data Source [id number] 06/24/2011 12:34:00 PM EDT [facility] Name Value Range Interpretation Description Data Sup porting Code Source(s) Document(s ) Color Yellow Normal (applies Color [facility] to non-numeric Health results) System Appearance of CLEAR Normal (applies Urine [facility] Urine to non-numeric Appearance Health results) System Specific gravity 1.017 Normal (applies Urine Specific [place] [facility] of Urine to non-numeric [place] [facility] results) System pH.. 7.0 Normal (applies pH.. [facility] {pH_units} to non-numeric Health results) System Glucose,UA Negative Normal (applies Glucose, UA [facility] to non-numeric Health results) System Protein TR Normal (applies Protein [facility] [Mass/volume] in to non-numeric Health Serum or Plasma results) System BilirubinUrine Negative Normal (applies Bilirubin [facility] to non-numeric Urine Health results) System Urobilinogen Normal (applies Urobilinogen [facility] [Mass/volume] in to non-numeric UA Health Urine results) System Ketones Negative Normal (applies Ketones UA [facility] [Mass/volume] in to non-numeric Health Urine results) System Nitrate+Nitrite Negative Normal (applies Nitrite [facility] [Mass/volume] in to non-numeric Health Unspecified results) System specimen Leukocyte Moderate Abnormal Leukocyte [facility] esterase (applies to Esterase Health [Units/volume] non-numeric Concentration System in Urine results) Leukocytes 19 {/HPF} Normal (applies White Blood [facility] [#/volume] in to non-numeric Cells Health Unspecified results) System specimen by Automated count RedBloodCells 1 {/HPF} Normal (applies Red Blood [facility] to non-numeric Cells Health results) System Epithelial cells 2 {/HPF} Normal (applies Epithelial [facility] [Presence] in to non-numeric Cells Health Unspecified results) System specimen by Wet preparation Mucus OCC Normal (applies Mucus [facility] to non-numeric Health results) System UrineBlood (+-)TR Normal (applies Urine Blood [facility] to non-numeric Health results) System Non-SquamousEpit 1 {/HPF} Normal (applies Non-Squamous [facility] [facility] helial to non-numeric Epithelial Health results) System ID Date Data Source [id number] 09/05/2011 09:46:00 PM EDT [facility] Name Value Range Interpretation Description Data Sup porting Code Source(s) Document(s ) Deprecated Normal (applies to Aerobic [facility] Bacteria non-numeric Culture, Urine Health System identified in results) Urine by Aerobe culture ID Date Data Source [id number] 09/14/2011 11:30:00 AM EDT [facility] Name Value Range Interpretation Description Data Sup porting Code Source(s) Document(s ) Magnesium 1.9 Normal (applies Magnesium, [facility] [Mass/volume] {mEq/L} to non-numeric Serum Health Syst em in Serum or results) Plasma ID Date Data Source [id number] 09/14/2011 11:44:00 AM EDT [facility] System Name Value Range Interpretation Description Data Sup porting Code Source(s) Document(s ) pH 7.379 Normal (applies pH [facility] {pH_uni to non-numeric Health ts} results) System Carbon dioxide 37.1 Normal (applies pCO2, [facility] [Partial pressure] {mm_Hg} to non-numeric Arterial Health in Arterial blood results) System Oxygen [Partial 77.5 Below low normal pO2, Aterial [facility] [facility] pressure] in {mm_Hg} Health Arterial blood System BaseExcess. -2.9 Below low normal Base Excess. [facility] mmol/L Health System Bicarbonate 21.4 Normal (applies HCO3, Venous [facility] [Moles/volume] in mmol/L to non-numeric Health Venous blood results) System TCO2 19.2 Below low normal TCO2 [facility] mmol/L Health System [id number] 95.1 % Normal (applies O2 Saturation [facility] to non-numeric Health results) System U2Mggywhx 7.6 Normal (applies O2 Content [facility] to non-numeric Health results) System TimeDrawn 10:45am Normal (applies Time Drawn [facility] to non-numeric Health results) System PatientTemperature 98.6 Normal (applies Patient [facility] savi to non-numeric Temperature Health results) System FiO2 21 Normal (applies FiO2 [facility] to non-numeric Health results) System Lactate 5.9 Above upper Lactate [facility] [Mass/volume] in mmol/L panic limits Health Serum or Plasma System IonizedCalcium 1.19 Normal (applies Ionized [facility] mmol/L to non-numeric Calcium Health results) System Sodium,WB 136 Normal (applies Sodium, WB [facility] mmol/L to non-numeric Health results) System Potassium,WB 3.7 Normal (applies Potassium, WB [facility] mmol/L to non-numeric Health results) System Chloride,WB 113 Above high Chloride, WB [facility] mmol/L normal Health System Glucose,WB 145 Above high Glucose, WB [facility] mg/dL normal Health System ID Date Data Source [id number] 10/04/2011 01:39:00 PM EDT [facility] Name Value Range Interpretation Description Data Sup porting Code Source(s) Document(s ) Poikilocytosis 1+ Abnormal Poikilocytosis [facility] [Presence] in (applies to Health Blood by non-numeric System Automated count results) Anisocytosis 1+ Abnormal Anisocytosis [facility] [Presence] in (applies to Health Blood by non-numeric System Automated count results) Acanthocytes/100 Few Normal (applies Acanthocytes [facility] 0 erythrocytes to non-numeric Health in Blood by results) System Light microscopy OVAL Few Normal (applies OVAL [facility] to non-numeric Health results) System Platelets Adequate Normal (applies Platelet Count [facility] [#/volume] in to non-numeric Estimate Health Blood by results) System Estimate ID Date Data Source [id number] 10/04/2011 01:39:00 PM EDT [facility] Name Value Range Interpretation Description Data Sup porting Code Source(s) Document(s ) Leukocytes 5.7 Normal (applies WBC Count [facility] [#/volume] in {10\\S\\3_ to non-numeric Health Unspecified uL} results) System specimen by Automated count Erythrocytes 4.94 Normal (applies RBC Count [facility] [#/volume] in {10\\S\\6_ to non-numeric Health Blood by uL} results) System Automated count Hemoglobin 13.1 Normal (applies Hemoglobin, [facility] [Mass/volume] in {gm/dL} to non-numeric Whole Blood Health Blood results) System Hematocrit 39.3 % Normal (applies Hematocrit, [facility] [Volume to non-numeric Whole Blood Health Fraction] of results) System Blood Erythrocyte mean 79.5 fl Below low normal MCV [facility] corpuscular Health volume [Entitic System volume] by Automated count Erythrocyte mean 26.6 pg Below low normal MCH [facility] corpuscular Health hemoglobin System [Entitic mass] by Automated count Erythrocyte mean 33.4 Normal (applies MCHC [facility] corpuscular {gm/dL} to non-numeric Health hemoglobin results) System concentration [Mass/volume] by Automated count Erythrocyte 18.9 % Above high normal RDW [facility] distribution Health width [Entitic System volume] by Automated count Platelets 266 Normal (applies Platelet [facility] [#/volume] in {10\\S\\3_ to non-numeric Count Health Plasma by uL} results) System Automated count Platelet mean 9.3 fl Normal (applies MPV [facility] volume [Entitic to non-numeric Health volume] in Blood results) System by Automated count Monocytes 0.4 Normal (applies Monocyte [facility] [#/volume] in {10\\S\\3_ to non-numeric Count Health Blood by Manual uL} results) System count Eosinophils 0.1 Normal (applies Eosinophil [facility] [#/volume] in {10\\S\\3} to non-numeric Count Blood Health Blood results) System Neutrophils 3.5 Normal (applies Absolute [facility] [#/volume] in {10\\S\\3_ to non-numeric Neutrophil Health Body fluid uL} results) Count System Basophils 0.00 Normal (applies Basophil [facility] [#/volume] in {10\\S\\3_ to non-numeric Count Health Blood by uL} results) System Automated count Lymphocyte 1.7 Normal (applies Lymphocyte [facility] percent {10\\S\\3_ to non-numeric Absolute Health differential uL} results) System count (procedure) Neutrophils/100 61.5 % Normal (applies Neutrophil % [facility] leukocytes in to non-numeric Health Blood by results) System Automated count Monocytes/100 6.8 % Above high normal Monocyte % [facility] leukocytes in Health Blood System Eosinophils/100 2.0 % Normal (applies Eosinophil % [place] [facility] leukocytes in to non-numeric Health Unspecified results) System specimen Basophils/100 0.4 % Normal (applies Basophil % [facility] leukocytes in to non-numeric Health Unspecified results) System specimen by Manual count Lymphocytes 29.3 % Normal (applies Lymphocyte % [facility] [#/volume] in to non-numeric Health Blood by results) System Automated count ID Date Data Source [id number] 10/04/2011 01:39:00 PM EDT [facility] Name Value Range Interpretation Description Data Sup porting Code Source(s) Document(s ) Valproate Below low normal Valproic Acid [facility] [Mass/volume] Level, Serum Health System in Serum or Plasma ID Date Data Source [id number] 10/04/2011 01:39:00 PM EDT [facility] Name Value Range Interpretation Description Data Sup porting Code Source(s) Document(s ) Sodium 139 Normal (applies Sodium, Serum [facility] [Moles/volume] in mmol/L to non-numeric Health Serum or Plasma results) System Potassium 3.8 Normal (applies Potassium, [facility] [Mass/volume] in mmol/L to non-numeric Serum Health Serum or Plasma results) System Chloride 108 Normal (applies Chloride, [facility] [Moles/volume] in mmol/L to non-numeric Serum Health Serum or Plasma results) System Carbon dioxide, 25.3 Normal (applies CO2, Serum [facility] total mmol/L to non-numeric Health [Moles/volume] in results) System Serum or Plasma TotalProtein 6.2 Below low normal Total Protein [facility] mg/dl [facility] System Glucose 87 Normal (applies Glucose, [facility] [Mass/volume] in mg/dL to non-numeric Serum Health Serum or Plasma results) System Urea nitrogen 5 mg/dl Below low normal Blood Urea [facility] [Mass/volume] in Nitrogen, Health Serum or Plasma Serum System Creatinine 0.77 Normal (applies Creatinine, [facility] [Mass/volume] in mg/dl to non-numeric Serum Health Serum or Plasma results) System Alkaline 74 Normal (applies Alkaline [facility] phosphatase {IU/L} to non-numeric Phosphatase, Health isoenzymes results) Serum System [Enzymatic activity/volume] in Serum or Plasma by Heat stability Bilirubin.total 0.7 Normal (applies Bilirubin, [facility] [Mass/volume] in mg/dl to non-numeric Serum Total Health Serum or Plasma results) System Aspartate 15 Normal (applies Aspartate [facility] aminotransferase {IU/L} to non-numeric Transaminase, Heal th [Enzymatic results) Serum System activity/volume] in Serum or Plasma by With P-5'-P Albumin 3.5 Normal (applies Albumin, [facility] [Mass/volume] in {gm/dl} to non-numeric Serum Health Serum or Plasma results) System I.Phosphorus 3.3 Normal (applies I. Phosphorus [facility] mg/dl to non-numeric Health results) System Alanine 11 Normal (applies Alanine [facility] aminotransferase {IU/L} to non-numeric Aminotransfer Heal th [Enzymatic results) ase, Serum System activity/volume] in Serum or Plasma Calcium 9.7 Normal (applies Calcium, [facility] [Mass/volume] in mg/dl to non-numeric Total Serum Health Serum or Plasma results) System A/GRatio 1.30 Normal (applies A/G Ratio [facility] to non-numeric Health results) System Urate 5.8 Normal (applies Uric Acid, [facility] [Mass/volume] in mg/dl to non-numeric Serum Health Serum or Plasma results) System Anion gap in Serum 5.70 Normal (applies Anion Gap [facility] or Plasma mmol/L to non-numeric Health results) System Glomerular Normal (applies GFR [facility] filtration to non-numeric Health rate/1.73 sq results) System M.predicted [Volume Rate/Area] in Serum or Plasma by Creatinine-based formula (CKD-EPI) ID Date Data Source [id number] 10/04/2011 01:39:00 PM EDT [facility] Name Value Range Interpretation Description Data Sup porting Code Source(s) Document(s ) Phenytoin Below low normal Phenytoin [facility] [Mass/volume] Level, Serum Health System in Serum or Plasma ID Date Data Source [id number] 11/22/2011 01:57:00 PM EDT [facility] Name Value Range Interpretation Description Data Sup porting Code Source(s) Document(s ) Poikilocytosis 1+ Abnormal Poikilocytosis [facility] [Presence] in (applies to Health Blood by non-numeric System Automated count results) Anisocytosis 1+ Abnormal Anisocytosis [facility] [Presence] in (applies to Health Blood by non-numeric System Automated count results) OVAL Few Normal (applies OVAL [facility] to non-numeric Health results) System Platelets Adequate Normal (applies Platelet Count [facility] [#/volume] in to non-numeric Estimate Health Blood by results) System Estimate ID Date Data Source [id number] 11/22/2011 01:57:00 PM EDT [facility] Name Value Range Interpretation Description Data Sup porting Code Source(s) Document(s ) Leukocytes 8.5 Normal (applies WBC Count [facility] [#/volume] in {10\\S\\3_ to non-numeric Health Unspecified uL} results) System specimen by Automated count Erythrocytes 5.15 Normal (applies RBC Count [facility] [#/volume] in {10\\S\\6_ to non-numeric Health Blood by uL} results) System Automated count Hemoglobin 14.0 Normal (applies Hemoglobin, [facility] [Mass/volume] in {gm/dL} to non-numeric Whole Blood Health Blood results) System Hematocrit 43.2 % Normal (applies Hematocrit, [facility] [Volume to non-numeric Whole Blood Health Fraction] of results) System Blood Erythrocyte mean 83.8 fl Normal (applies MCV [facility] corpuscular to non-numeric Health volume [Entitic results) System volume] by Automated count Erythrocyte mean 27.1 pg Normal (applies MCH [facility] corpuscular to non-numeric Health hemoglobin results) System [Entitic mass] by Automated count Erythrocyte mean 32.3 Below low normal MCHC [facility] corpuscular {gm/dL} Health hemoglobin System concentration [Mass/volume] by Automated count Erythrocyte 20.9 % Above high normal RDW [facility] distribution Health width [Entitic System volume] by Automated count Platelets 319 Normal (applies Platelet [facility] [#/volume] in {10\\S\\3_ to non-numeric Count Health Plasma by uL} results) System Automated count Platelet mean 8.7 fl Normal (applies MPV [facility] volume [Entitic to non-numeric Health volume] in Blood results) System by Automated count Monocytes 0.4 Normal (applies Monocyte [facility] [#/volume] in {10\\S\\3_ to non-numeric Count Health Blood by Manual uL} results) System count Eosinophils 0.1 Normal (applies Eosinophil [facility] [#/volume] in {10\\S\\3} to non-numeric Count Blood Health Blood results) System Neutrophils 6.5 Normal (applies Absolute [facility] [#/volume] in {10\\S\\3_ to non-numeric Neutrophil Health Body fluid uL} results) Count System Basophils 0.00 Normal (applies Basophil [facility] [#/volume] in {10\\S\\3_ to non-numeric Count Health Blood by uL} results) System Automated count Lymphocyte 1.5 Normal (applies Lymphocyte [facility] percent {10\\S\\3_ to non-numeric Absolute Health differential uL} results) System count (procedure) Neutrophils/100 77.0 % Above high normal Neutrophil % [facility] leukocytes in [facility] Blood by System Automated count Monocytes/100 4.7 % Normal (applies Monocyte % [facility] leukocytes in to non-numeric Health Blood results) System Eosinophils/100 0.6 % Below low normal Eosinophil % [facility] [facility] leukocytes in Health Unspecified System specimen Basophils/100 0.3 % Normal (applies Basophil % [facility] leukocytes in to non-numeric Health Unspecified results) System specimen by Manual count Lymphocytes 17.4 % Normal (applies Lymphocyte % [facility] [#/volume] in to non-numeric Health Blood by results) System Automated count ID Date Data Source [id number] 11/22/2011 01:57:00 PM EDT [facility] Name Value Range Interpretation Description Data Sup porting Code Source(s) Document(s ) Sodium 138 Normal (applies Sodium, Serum [facility] [Moles/volume] in mmol/L to non-numeric Health Serum or Plasma results) System Potassium 4.5 Normal (applies Potassium, [facility] [Mass/volume] in mmol/L to non-numeric Serum Health Serum or Plasma results) System Chloride 104 Normal (applies Chloride, [facility] [Moles/volume] in mmol/L to non-numeric Serum Health Serum or Plasma results) System Carbon dioxide, 27.0 Normal (applies CO2, Serum [facility] total mmol/L to non-numeric Health [Moles/volume] in results) System Serum or Plasma TotalProtein 7.3 Normal (applies Total Protein [facility] mg/dl to non-numeric Health results) System Glucose 97 Normal (applies Glucose, [facility] [Mass/volume] in mg/dL to non-numeric Serum Health Serum or Plasma results) System Urea nitrogen 10 Normal (applies Blood Urea [facility] [Mass/volume] in mg/dl to non-numeric Nitrogen, Health Serum or Plasma results) Serum System Creatinine 0.82 Normal (applies Creatinine, [facility] [Mass/volume] in mg/dl to non-numeric Serum Health Serum or Plasma results) System Alkaline 91 Normal (applies Alkaline [facility] phosphatase {IU/L} to non-numeric Phosphatase, Health isoenzymes results) Serum System [Enzymatic activity/volume] in Serum or Plasma by Heat stability Bilirubin.total 0.6 Normal (applies Bilirubin, [facility] [Mass/volume] in mg/dl to non-numeric Serum Total Health Serum or Plasma results) System Aspartate 18 Normal (applies Aspartate [facility] aminotransferase {IU/L} to non-numeric Transaminase, [facility]al th [Enzymatic results) Serum System activity/volume] in Serum or Plasma by With P-5'-P Albumin 4.1 Normal (applies Albumin, [facility] [Mass/volume] in {gm/dl} to non-numeric Serum Health Serum or Plasma results) System I.Phosphorus 4.3 Normal (applies I. Phosphorus [facility] mg/dl to non-numeric Health results) System Alanine 16 Normal (applies Alanine [facility] aminotransferase {IU/L} to non-numeric Aminotransfer Heal th [Enzymatic results) ase, Serum System activity/volume] in Serum or Plasma Calcium 10.8 Above high Calcium, [facility] [Mass/volume] in mg/dl normal Total Serum Health Serum or Plasma System A/GRatio 1.28 Normal (applies A/G Ratio [facility] to non-numeric Health results) System Urate 5.3 Normal (applies Uric Acid, [facility] [Mass/volume] in mg/dl to non-numeric Serum Health Serum or Plasma results) System Anion gap in Serum 7.00 Normal (applies Anion Gap [facility] or Plasma mmol/L to non-numeric Health results) System Glomerular 74.89 Normal (applies GFR [facility] filtration to non-numeric Health rate/1.73 sq results) System M.predicted [Volume Rate/Area] in Serum or Plasma by Creatinine-based formula (CKD-EPI) ID Date Data Source [id number] 11/22/2011 01:57:00 PM EDT [facility] System Name Value Range Interpretation Description Data Sup porting Code Source(s) Document(s ) TroponinIQuantitative 0.01 Normal (applies Troponin I [facility] ng/ml to non-numeric Quantitative Health results) System ID Date Data Source [id number] 11/29/2011 02:02:00 PM EDT [facility] System Name Value Range Interpretation Description Data Sup porting Code Source(s) Document(s ) Anisocytosis Slight Normal (applies Anisocytosis [facility] [Presence] in to non-numeric Health Blood by results) System Automated count Platelets Adequate Normal (applies Platelet Count [facility] [#/volume] in to non-numeric Estimate Health Blood by results) System Estimate ID Date Data Source [id number] 11/29/2011 02:02:00 PM EDT [facility] Name Value Range Interpretation Description Data Sup porting Code Source(s) Document(s ) Leukocytes 8.1 Normal (applies WBC Count [facility] [#/volume] in {10\\S\\3_ to non-numeric Health Unspecified uL} results) System specimen by Automated count Erythrocytes 5.27 Normal (applies RBC Count [facility] [#/volume] in {10\\S\\6_ to non-numeric Health Blood by uL} results) System Automated count Hemoglobin 14.4 Normal (applies Hemoglobin, [facility] [Mass/volume] in {gm/dL} to non-numeric Whole Blood Health Blood results) System Hematocrit 44.6 % Normal (applies Hematocrit, [facility] [Volume to non-numeric Whole Blood Health Fraction] of results) System Blood Erythrocyte mean 84.7 fl Normal (applies MCV [facility] corpuscular to non-numeric Health volume [Entitic results) System volume] by Automated count Erythrocyte mean 27.4 pg Normal (applies MCH [facility] corpuscular to non-numeric Health hemoglobin results) System [Entitic mass] by Automated count Erythrocyte mean 32.4 Below low normal [facility] corpuscular {gm/dL} Health hemoglobin System concentration [Mass/volume] by Automated count Erythrocyte 20.9 % Above high normal RDW [facility] distribution Health width [Entitic System volume] by Automated count Platelets 278 Normal (applies Platelet [facility] [#/volume] in {10\\S\\3_ to non-numeric Count Health Plasma by uL} results) System Automated count Platelet mean 9.2 fl Normal (applies MPV [facility] volume [Entitic to non-numeric Health volume] in Blood results) System by Automated count Monocytes 0.5 Normal (applies Monocyte [facility] [#/volume] in {10\\S\\3_ to non-numeric Count Health Blood by Manual uL} results) System count Eosinophils 0.0 Normal (applies Eosinophil [facility] [#/volume] in {10\\S\\3} to non-numeric Count Blood Health Blood results) System Basophils 0.10 Normal (applies Basophil [facility] [#/volume] in {10\\S\\3_ to non-numeric Count Health Blood by uL} results) System Automated count Neutrophils 5.6 Normal (applies Absolute [facility] [#/volume] in {10\\S\\3_ to non-numeric Neutrophil Health Body fluid uL} results) Count System Lymphocyte 1.9 Normal (applies Lymphocyte [facility] percent {10\\S\\3_ to non-numeric Absolute Health differential uL} results) System count (procedure) Neutrophils/100 69.1 % Normal (applies Neutrophil % [facility] leukocytes in to non-numeric Health Blood by results) System Automated count Monocytes/100 6.3 % Above high normal Monocyte % [facility] leukocytes in Health Blood System Eosinophils/100 0.4 % Below low normal Eosinophil % [facility] [facility] leukocytes in Health Unspecified System specimen Basophils/100 0.8 % Normal (applies Basophil % [facility] leukocytes in to non-numeric Health Unspecified results) System specimen by Manual count Lymphocytes 23.4 % Normal (applies Lymphocyte % [facility] [#/volume] in to non-numeric Health Blood by results) System Automated count ID Date Data Source [id number] 11/29/2011 02:02:00 PM EDT [facility] System Name Value Range Interpretation Description Data Sup porting Code Source(s) Document(s ) Sodium 141 Normal (applies Sodium, Serum [facility] [Moles/volume] in mmol/L to non-numeric Health Serum or Plasma results) System Potassium 4.6 Normal (applies Potassium, [facility] [Mass/volume] in mmol/L to non-numeric Serum Health Serum or Plasma results) System Chloride 107 Normal (applies Chloride, [facility] [Moles/volume] in mmol/L to non-numeric Serum Health Serum or Plasma results) System Carbon dioxide, 27.8 Normal (applies CO2, Serum [facility] total mmol/L to non-numeric Health [Moles/volume] in results) System Serum or Plasma TotalProtein 7.1 Normal (applies Total Protein [facility] mg/dl to non-numeric Health results) System Glucose 92 Normal (applies Glucose, [facility] [Mass/volume] in mg/dL to non-numeric Serum Health Serum or Plasma results) System Urea nitrogen 8 mg/dl Normal (applies Blood Urea [facility] [Mass/volume] in to non-numeric Nitrogen, Health Serum or Plasma results) Serum System Creatinine 0.80 Normal (applies Creatinine, [facility] [Mass/volume] in mg/dl to non-numeric Serum Health Serum or Plasma results) System Alkaline 88 Normal (applies Alkaline [facility] phosphatase {IU/L} to non-numeric Phosphatase, Health isoenzymes results) Serum System [Enzymatic activity/volume] in Serum or Plasma by Heat stability Bilirubin.total 0.5 Normal (applies Bilirubin, [facility] [Mass/volume] in mg/dl to non-numeric Serum Total Health Serum or Plasma results) System Aspartate 18 Normal (applies Aspartate [facility] aminotransferase {IU/L} to non-numeric Transaminase, Heal th [Enzymatic results) Serum System activity/volume] in Serum or Plasma by With P-5'-P Albumin 4.1 Normal (applies Albumin, [facility] [Mass/volume] in {gm/dl} to non-numeric Serum Health Serum or Plasma results) System I.Phosphorus 3.9 Normal (applies I. Phosphorus [facility] mg/dl to non-numeric Health results) System Alanine 19 Normal (applies Alanine [facility] aminotransferase {IU/L} to non-numeric Aminotransfer Heal th [Enzymatic results) ase, Serum System activity/volume] in Serum or Plasma Calcium 10.4 Above high Calcium, [facility] [Mass/volume] in mg/dl normal Total Serum Health Serum or Plasma System A/GRatio 1.37 Normal (applies A/G Ratio [facility] to non-numeric Health results) System Urate 5.5 Normal (applies Uric Acid, [facility] [Mass/volume] in mg/dl to non-numeric Serum Health Serum or Plasma results) System Anion gap in Serum 6.20 Normal (applies Anion Gap [facility] or Plasma mmol/L to non-numeric Health results) System Glomerular 77.05 Normal (applies GFR [facility] filtration to non-numeric Health rate/1.73 sq results) System M.predicted [Volume Rate/Area] in Serum or Plasma by Creatinine-based formula (CKD-EPI) ID Date Data Source [id number] 01/06/2012 12:44:00 PM EST [facility] Name Value Range Interpretation Description Data Sup porting Code Source(s) Document(s ) Poikilocytosis Slight Normal (applies Poikilocytosis [facility] [Presence] in to non-numeric Health Blood by results) System Automated count Anisocytosis Slight Normal (applies Anisocytosis [facility] [Presence] in to non-numeric Health Blood by results) System Automated count Platelets Adequate Normal (applies Platelet Count [facility] [#/volume] in to non-numeric Estimate Health Blood by results) System Estimate ID Date Data Source [id number] 01/06/2012 12:44:00 PM EST [facility] Name Value Range Interpretation Description Data Sup porting Code Source(s) Document(s ) Leukocytes 7.8 Normal (applies WBC Count [facility] [#/volume] in {10\\S\\3_ to non-numeric Health Unspecified uL} results) System specimen by Automated count Erythrocytes 5.52 Above high normal RBC Count [facility] [#/volume] in {10\\S\\6_ Health Blood by uL} System Automated count Hemoglobin 15.5 Normal (applies Hemoglobin, [facility] [Mass/volume] in {gm/dL} to non-numeric Whole Blood Health Blood results) System Hematocrit 47.5 % Above high normal Hematocrit, [facility] [Volume Whole Blood Health Fraction] of System Blood Erythrocyte mean 85.9 fl Normal (applies MCV [facility] corpuscular to non-numeric Health volume [Entitic results) System volume] by Automated count Erythrocyte mean 28.1 pg Normal (applies MCH [facility] corpuscular to non-numeric Health hemoglobin results) System [Entitic mass] by Automated count Erythrocyte mean 32.7 Below low normal [facility] corpuscular {gm/dL} Health hemoglobin System concentration [Mass/volume] by Automated count Erythrocyte 17.8 % Above high normal RDW [facility] distribution Health width [Entitic System volume] by Automated count Platelets 295 Normal (applies Platelet [facility] [#/volume] in {10\\S\\3_ to non-numeric Count Health Plasma by uL} results) System Automated count Platelet mean 9.0 fl Normal (applies MPV [facility] volume [Entitic to non-numeric Health volume] in Blood results) System by Automated count Monocytes 0.4 Normal (applies Monocyte [facility] [#/volume] in {10\\S\\3_ to non-numeric Count Health Blood by Manual uL} results) System count Eosinophils 0.1 Normal (applies Eosinophil [facility] [#/volume] in {10\\S\\3} to non-numeric Count Blood Health Blood results) System Basophils 0.00 Normal (applies Basophil [facility] [#/volume] in {10\\S\\3_ to non-numeric Count Health Blood by uL} results) System Automated count Neutrophils 5.0 Normal (applies Absolute [facility] [#/volume] in {10\\S\\3_ to non-numeric Neutrophil Health Body fluid uL} results) Count System Lymphocyte 2.4 Normal (applies Lymphocyte [facility] percent {10\\S\\3_ to non-numeric Absolute Health differential uL} results) System count (procedure) Neutrophils/100 63.3 % Normal (applies Neutrophil % [place] [facility] leukocytes in to non-numeric Health Blood by results) System Automated count Monocytes/100 5.0 % Normal (applies Monocyte % [facility] leukocytes in to non-numeric Health Blood results) System Eosinophils/100 0.9 % Below low normal Eosinophil % [facility] [facility] leukocytes in Health Unspecified System specimen Basophils/100 0.6 % Normal (applies Basophil % [facility] leukocytes in to non-numeric Health Unspecified results) System specimen by Manual count Lymphocytes 30.2 % Normal (applies Lymphocyte % [facility] [#/volume] in to non-numeric Health Blood by results) System Automated count ID Date Data Source [id number] 01/06/2012 12:44:00 PM EST [facility] Name Value Range Interpretation Description Data Sup porting Code Source(s) Document(s ) Sodium 138 Normal (applies Sodium, Serum [facility] [Moles/volume] in mmol/L to non-numeric Health Serum or Plasma results) System Potassium 4.7 Normal (applies Potassium, [facility] [Mass/volume] in mmol/L to non-numeric Serum Health Serum or Plasma results) System Chloride 106 Normal (applies Chloride, [facility] [Moles/volume] in mmol/L to non-numeric Serum Health Serum or Plasma results) System Carbon dioxide, 24.6 Normal (applies CO2, Serum [facility] total mmol/L to non-numeric Health [Moles/volume] in results) System Serum or Plasma TotalProtein 6.9 Normal (applies Total Protein [facility] mg/dl to non-numeric Health results) System Glucose 85 Normal (applies Glucose, [facility] [Mass/volume] in mg/dL to non-numeric Serum Health Serum or Plasma results) System Urea nitrogen 11 Normal (applies Blood Urea [facility] [Mass/volume] in mg/dl to non-numeric Nitrogen, Health Serum or Plasma results) Serum System Creatinine 0.90 Normal (applies Creatinine, [facility] [Mass/volume] in mg/dl to non-numeric Serum Health Serum or Plasma results) System Alkaline 87 Normal (applies Alkaline [facility] phosphatase {IU/L} to non-numeric Phosphatase, Health isoenzymes results) Serum System [Enzymatic activity/volume] in Serum or Plasma by Heat stability Bilirubin direct 0.3 Normal (applies Bilirubin, [facility] and total panel mg/dl to non-numeric Serum Total Health [Mass/volume] - results) System Serum or Plasma Aspartate 15 Normal (applies Aspartate [facility] aminotransferase {IU/L} to non-numeric Transaminase, [facility] [Enzymatic results) Serum System activity/volume] in Serum or Plasma by With P-5'-P Albumin 4.4 Normal (applies Albumin, [facility] [Mass/volume] in {gm/dl} to non-numeric Serum Health Serum or Plasma results) System I.Phosphorus 3.9 Normal (applies I. Phosphorus [facility] mg/dl to non-numeric Health results) System Alanine 10 Normal (applies Alanine [facility] aminotransferase {IU/L} to non-numeric Aminotransfer [facility] [Enzymatic results) ase, Serum System activity/volume] in Serum or Plasma Calcium 10.3 Above high Calcium, [facility] [Mass/volume] in mg/dl normal Total Serum Health Serum or Plasma System A/GRatio 1.76 Normal (applies A/G Ratio [facility] to non-numeric Health results) System Urate 5.0 Normal (applies Uric Acid, [facility] [Mass/volume] in mg/dl to non-numeric Serum Health Serum or Plasma results) System Anion gap in Serum 7.40 Normal (applies Anion Gap [facility] or Plasma mmol/L to non-numeric Health results) System Glomerular 67.23 Normal (applies GFR [facility] filtration to non-numeric Health rate/1.73 sq results) System M.predicted [Volume Rate/Area] in Serum or Plasma by Creatinine-based formula (CKD-EPI) ID Date Data Source [id number] 01/06/2012 12:44:00 PM EST [facility] Name Value Range Interpretation Description Data Sup porting Code Source(s) Document(s ) TroponinIQuantitative 0.01 Normal (applies Troponin I [facility] ng/ml to non-numeric Quantitative Health results) System ID Date Data Source [id number] 02/03/2012 01:21:00 PM EST [facility] Name Value Range Interpretation Description Data Sup porting Code Source(s) Document(s ) Leukocytes 8.2 Normal (applies WBC Count [facility] [#/volume] in {10\\S\\3_ to non-numeric Health Unspecified uL} results) System specimen by Automated count Erythrocytes 5.33 Normal (applies RBC Count [facility] [#/volume] in {10\\S\\6_ to non-numeric Health Blood by uL} results) System Automated count Hemoglobin 15.2 Normal (applies Hemoglobin, [facility] [Mass/volume] in {gm/dL} to non-numeric Whole Blood Health Blood results) System Hematocrit 46.5 % Normal (applies Hematocrit, [facility] [Volume to non-numeric Whole Blood Health Fraction] of results) System Blood Erythrocyte mean 87.2 fl Normal (applies MCV [facility] corpuscular to non-numeric Health volume [Entitic results) System volume] by Automated count Erythrocyte mean 28.5 pg Normal (applies MCH [facility] corpuscular to non-numeric Health hemoglobin results) System [Entitic mass] by Automated count Erythrocyte mean 32.7 Below low normal [facility]CHC [facility] corpuscular {gm/dL} Health hemoglobin System concentration [Mass/volume] by Automated count Erythrocyte 16.2 % Above high normal RDW [facility] distribution Health width [Entitic System volume] by Automated count Platelets 342 Normal (applies Platelet [facility] [#/volume] in {10\\S\\3_ to non-numeric Count Health Plasma by uL} results) System Automated count Platelet mean 8.2 fl Normal (applies MPV [facility] volume [Entitic to non-numeric Health volume] in Blood results) System by Automated count Monocytes 0.5 Normal (applies Monocyte [facility] [#/volume] in {10\\S\\3_ to non-numeric Count Health Blood by Manual uL} results) System count Eosinophils 0.1 Normal (applies Eosinophil [facility] [#/volume] in {10\\S\\3} to non-numeric Count Blood [facility] Blood results) System Neutrophils 5.6 Normal (applies Absolute [facility] [#/volume] in {10\\S\\3_ to non-numeric Neutrophil Health Body fluid uL} results) Count System Basophils 0.00 Normal (applies Basophil [facility] [#/volume] in {10\\S\\3_ to non-numeric Count Health Blood by uL} results) System Automated count Lymphocyte 2.1 Normal (applies Lymphocyte [facility] percent {10\\S\\3_ to non-numeric Absolute Health differential uL} results) System count (procedure) Neutrophils/100 67.5 % Normal (applies Neutrophil % [facility] leukocytes in to non-numeric Health Blood by results) System Automated count Monocytes/100 5.5 % Normal (applies Monocyte % [facility] leukocytes in to non-numeric Health Blood results) System Eosinophils/100 1.1 % Normal (applies Eosinophil % [facility] leukocytes in to non-numeric Health Unspecified results) System specimen Basophils/100 0.5 % Normal (applies Basophil % [facility] leukocytes in to non-numeric Health Unspecified results) System specimen by Manual count Lymphocytes 25.4 % Normal (applies Lymphocyte % [facility] [#/volume] in to non-numeric Health Blood by results) System Automated count ID Date Data Source [id number] 02/03/2012 01:21:00 PM EST [facility] Name Value Range Interpretation Description Data Sup porting Code Source(s) Document(s ) Sodium 140 Normal (applies Sodium, Serum [facility] [Moles/volume] in mmol/L to non-numeric Health Serum or Plasma results) System Potassium 4.4 Normal (applies Potassium, [facility] [Mass/volume] in mmol/L to non-numeric Serum Health Serum or Plasma results) System Chloride 102 Normal (applies Chloride, [facility] [Moles/volume] in mmol/L to non-numeric Serum Health Serum or Plasma results) System Carbon dioxide, 29.1 Normal (applies CO2, Serum [facility] total mmol/L to non-numeric Health [Moles/volume] in results) System Serum or Plasma TotalProtein 7.5 Normal (applies Total Protein [facility] mg/dl to non-numeric Health results) System Glucose 76 Normal (applies Glucose, [facility] [Mass/volume] in mg/dL to non-numeric Serum Health Serum or Plasma results) System Urea nitrogen 7 mg/dl Normal (applies Blood Urea [facility] [Mass/volume] in to non-numeric Nitrogen, Health Serum or Plasma results) Serum System Creatinine 0.90 Normal (applies Creatinine, [facility] [Mass/volume] in mg/dl to non-numeric Serum Health Serum or Plasma results) System Alkaline 102 Normal (applies Alkaline [facility] phosphatase {IU/L} to non-numeric Phosphatase, Health isoenzymes results) Serum System [Enzymatic activity/volume] in Serum or Plasma by Heat stability Bilirubin.total 0.3 Normal (applies Bilirubin, [facility] [Mass/volume] in mg/dl to non-numeric Serum Total Health Serum or Plasma results) System Aspartate 20 Normal (applies Aspartate [facility] aminotransferase {IU/L} to non-numeric Transaminase, [facility] [Enzymatic results) Serum System activity/volume] in Serum or Plasma by With P-5'-P Albumin 4.6 Normal (applies Albumin, [facility] [Mass/volume] in {gm/dl} to non-numeric Serum Health Serum or Plasma results) System I.Phosphorus 4.0 Normal (applies I. Phosphorus [facility] mg/dl to non-numeric Health results) System Alanine 34 Normal (applies Alanine [facility] aminotransferase {IU/L} to non-numeric Aminotransfer [facility] [Enzymatic results) ase, Serum System activity/volume] in Serum or Plasma Calcium 10.9 Above high Calcium, [facility] [Mass/volume] in mg/dl normal Total Serum Health Serum or Plasma System A/GRatio 1.59 Normal (applies A/G Ratio [facility] to non-numeric Health results) System Urate 6.9 Normal (applies Uric Acid, [facility] [Mass/volume] in mg/dl to non-numeric Serum Health Serum or Plasma results) System Anion gap in Serum 8.90 Normal (applies Anion Gap [facility] or Plasma mmol/L to non-numeric Health results) System Glomerular 67.20 Normal (applies GFR [facility] filtration to non-numeric Health rate/1.73 sq results) System M.predicted [Volume Rate/Area] in Serum or Plasma by Creatinine-based formula (CKD-EPI) ID Date Data Source [id number] 02/03/2012 01:21:00 PM EST [facility] Name Value Range Interpretation Description Data Sup porting Code Source(s) Document(s ) Phenytoin 6.3 Below low normal Phenytoin [facility] [Mass/volume] ug/ml Level, Serum Health System in Serum or Plasma ID Date Data Source [id number] 02/03/2012 01:21:00 PM EST [facility] Name Value Range Interpretation Description Data Sup porting Code Source(s) Document(s ) Phenobarbital 64.7 Above upper PHENobarbital [facility] [Mass/volume] in ug/ml panic limits Level, Serum Health Serum or Plasma System ID Date Data Source [id number] 05/10/2012 03:36:00 PM EDT [facility] Name Value Range Interpretation Description Data Sup porting Code Source(s) Document(s ) Leukocytes 4.9 Normal (applies WBC Count [facility] [#/volume] in {10\\S\\3_ to non-numeric Health Unspecified uL} results) System specimen by Automated count Erythrocytes 4.56 Normal (applies RBC Count [facility] [#/volume] in {10\\S\\6_ to non-numeric Health Blood by uL} results) System Automated count Hemoglobin 13.8 Normal (applies Hemoglobin, [facility] [Mass/volume] in {gm/dL} to non-numeric Whole Blood Health Blood results) System Hematocrit 42.0 % Normal (applies Hematocrit, [facility] [Volume to non-numeric Whole Blood Health Fraction] of results) System Blood Erythrocyte mean 92.0 fl Normal (applies MCV [facility] corpuscular to non-numeric Health volume [Entitic results) System volume] by Automated count Erythrocyte mean 30.2 pg Normal (applies MCH [facility] corpuscular to non-numeric Health hemoglobin results) System [Entitic mass] by Automated count Erythrocyte mean 32.8 Below low normal [facility] corpuscular {gm/dL} Health hemoglobin System concentration [Mass/volume] by Automated count Erythrocyte 14.6 % Above high normal RDW [facility] distribution Health width [Entitic System volume] by Automated count Platelets 227 Normal (applies Platelet [facility] [#/volume] in {10\\S\\3_ to non-numeric Count Health Plasma by uL} results) System Automated count Platelet mean 9.2 fl Normal (applies MPV [facility] volume [Entitic to non-numeric Health volume] in Blood results) System by Automated count RDW-SD 46.40 fL Normal (applies RDW-SD [facility] to non-numeric Health results) System Monocytes 0.4 Normal (applies Monocyte [facility] [#/volume] in {10\\S\\3_ to non-numeric Count Health Blood by Manual uL} results) System count Eosinophils 0.2 Normal (applies Eosinophil [facility] [#/volume] in {10\\S\\3} to non-numeric Count Blood Health Blood results) System Basophils 0.00 Normal (applies Basophil [facility] [#/volume] in {10\\S\\3_ to non-numeric Count Health Blood by uL} results) System Automated count Neutrophils 2.6 Below low normal Absolute [facility] [#/volume] in {10\\S\\3_ Neutrophil Health Body fluid uL} Count System Lymphocyte 1.7 Normal (applies Lymphocyte [facility] percent {10\\S\\3_ to non-numeric Absolute Health differential uL} results) System count (procedure) Neutrophils/100 52.9 % Below low normal Neutrophil % [facility] leukocytes in [facility] Blood by System Automated count Monocytes/100 7.9 % Normal (applies Monocyte % [facility] leukocytes in to non-numeric Health Blood results) System Eosinophils/100 3.9 % Normal (applies Eosinophil % [facility] [facility] leukocytes in to non-numeric Health Unspecified results) System specimen Basophils/100 0.6 % Normal (applies Basophil % [facility] leukocytes in to non-numeric Health Unspecified results) System specimen by Manual count Lymphocytes 34.7 % Normal (applies Lymphocyte % [facility] [#/volume] in to non-numeric Health Blood by results) System Automated count ID Date Data Source [id number] 05/10/2012 04:10:00 PM EDT [facility] Name Value Range Interpretation Description Data Sup porting Code Source(s) Document(s ) Prothrombintim 11.20 Normal (applies Prothrombin [facility](PT) to non-numeric time (PT) Health System results) INR in Blood 0.98 Normal (applies INR Result [facility] by Coagulation {Ratio} to non-numeric Health Sys tem assay results) ID Date Data Source [id number] 05/10/2012 04:10:00 PM EDT [facility] Name Value Range Interpretation Description Data Sup porting Code Source(s) Document(s ) Sodium 141 Normal (applies Sodium, Serum [facility] [Moles/volume] in mmol/L to non-numeric Health Serum or Plasma results) System Potassium 4.8 Normal (applies Potassium, [facility] [Mass/volume] in mmol/L to non-numeric Serum Health Serum or Plasma results) System Chloride 107 Normal (applies Chloride, [facility] [Moles/volume] in mmol/L to non-numeric Serum Health Serum or Plasma results) System Carbon dioxide, 29.7 Normal (applies CO2, Serum [facility] total mmol/L to non-numeric Health [Moles/volume] in results) System Serum or Plasma TotalProtein 6.7 Normal (applies Total Protein [facility] mg/dl to non-numeric Health results) System Glucose 86 Normal (applies Glucose, [facility] [Mass/volume] in mg/dL to non-numeric Serum Health Serum or Plasma results) System Urea nitrogen 6 mg/dl Below low normal Blood Urea [facility] [Mass/volume] in Nitrogen, Health Serum or Plasma Serum System Creatinine 0.80 Normal (applies Creatinine, [facility] [Mass/volume] in mg/dl to non-numeric Serum Health Serum or Plasma results) System Alkaline 94 Normal (applies Alkaline [facility] phosphatase {IU/L} to non-numeric Phosphatase, Health isoenzymes results) Serum System [Enzymatic activity/volume] in Serum or Plasma by Heat stability Bilirubin.total 0.2 Normal (applies Bilirubin, [facility] [Mass/volume] in mg/dl to non-numeric Serum Total Health Serum or Plasma results) System Aspartate 18 Normal (applies Aspartate [facility] aminotransferase {IU/L} to non-numeric Transaminase, [facility] [Enzymatic results) Serum System activity/volume] in Serum or Plasma by With P-5'-P Albumin 4.2 Normal (applies Albumin, [facility] [Mass/volume] in {gm/dl} to non-numeric Serum Health Serum or Plasma results) System I.Phosphorus 3.6 Normal (applies I. Phosphorus [facility] mg/dl to non-numeric Health results) System Alanine 19 Normal (applies Alanine [facility] aminotransferase {IU/L} to non-numeric Aminotransfer [facility] [Enzymatic results) ase, Serum System activity/volume] in Serum or Plasma Calcium 10.0 Normal (applies Calcium, [facility] [Mass/volume] in mg/dl to non-numeric Total Serum Health Serum or Plasma results) System A/GRatio 1.68 Normal (applies A/G Ratio [facility] to non-numeric Health results) System Urate 5.6 Normal (applies Uric Acid, [facility] [Mass/volume] in mg/dl to non-numeric Serum Health Serum or Plasma results) System Anion gap in Serum 4.30 Normal (applies Anion Gap [facility] or Plasma mmol/L to non-numeric Health results) System Glomerular 76.90 Normal (applies GFR [facility] filtration to non-numeric Health rate/1.73 sq results) System M.predicted [Volume Rate/Area] in Serum or Plasma by Creatinine-based formula (CKD-EPI) ID Date Data Source [id number] 05/10/2012 04:10:00 PM EDT [facility] Name Value Range Interpretation Description Data Sup porting Code Source(s) Document(s ) TroponinIQuantitative 0.01 Normal (applies Troponin I [facility] ng/ml to non-numeric Quantitative Health results) System ID Date Data Source [id number] 03/23/2013 01:06:00 AM EST [facility] Name Value Range Interpretation Description Data Sup porting Code Source(s) Document(s ) Leukocytes WBC Count [facility] [#/volume] in Health System Unspecified specimen by Automated count Erythrocytes RBC Count [facility] [#/volume] in Health System Blood by Automated count Hemoglobin Hemoglobin, [facility] [Mass/volume] in Whole Blood Health Syst em Blood Hematocrit Hematocrit, [facility] [Volume Whole Blood Health System Fraction] of Blood Erythrocyte mean MCV [facility] corpuscular [facility] System volume [Entitic volume] by Automated count Erythrocyte mean MCH [facility] corpuscular [facility] System hemoglobin [Entitic mass] by Automated count Erythrocyte mean [facility] corpuscular [facility] System hemoglobin concentration [Mass/volume] by Automated count Erythrocyte RDW [facility] distribution Health System width [Entitic volume] by Automated count Platelets Platelet Count [facility] [#/volume] in Health System Plasma by Automated count Platelet mean MPV [facility] volume [Entitic Health System volume] in Blood by Automated count Eosinophils Eosinophil [facility] [#/volume] in Count Blood [facility] System Blood Neutrophils/100 Neutrophil % [facility] leukocytes in Health System Blood by Automated count ID Date Data Source [id number] 03/23/2013 01:06:00 AM EST [facility] Name Value Range Interpretation Description Data Sup porting Code Source(s) Document(s ) Sodium 139 Normal (applies Sodium, Serum [facility] [Moles/volume] in mmol/L to non-numeric Health Serum or Plasma results) System Potassium 4.1 Normal (applies Potassium, [facility] [Mass/volume] in mmol/L to non-numeric Serum Health Serum or Plasma results) System Chloride 107 Normal (applies Chloride, [facility] [Moles/volume] in mmol/L to non-numeric Serum Health Serum or Plasma results) System Carbon dioxide, 24.5 Normal (applies CO2, Serum [facility] total mmol/L to non-numeric Health [Moles/volume] in results) System Serum or Plasma TotalProtein 6.9 Normal (applies Total Protein [facility] mg/dl to non-numeric Health results) System Glucose 116 Above high Glucose, [facility] [Mass/volume] in mg/dL normal Serum Health Serum or Plasma System Urea nitrogen 15 Normal (applies Blood Urea [facility] [Mass/volume] in mg/dl to non-numeric Nitrogen, Health Serum or Plasma results) Serum System Creatinine 0.85 Normal (applies Creatinine, [facility] [Mass/volume] in mg/dl to non-numeric Serum Health Serum or Plasma results) System Alkaline 97 Normal (applies Alkaline [facility] phosphatase {IU/L} to non-numeric Phosphatase, Health isoenzymes results) Serum System [Enzymatic activity/volume] in Serum or Plasma by Heat stability Bilirubin.total 0.2 Normal (applies Bilirubin, [facility] [Mass/volume] in mg/dl to non-numeric Serum Total Health Serum or Plasma results) System Aspartate 15 Normal (applies Aspartate [facility] aminotransferase {IU/L} to non-numeric Transaminase, [facility] [Enzymatic results) Serum System activity/volume] in Serum or Plasma by With P-5'-P Albumin 4.4 Normal (applies Albumin, [facility] [Mass/volume] in {gm/dl} to non-numeric Serum Health Serum or Plasma results) System I.Phosphorus 3.2 Normal (applies I. Phosphorus [facility] mg/dl to non-numeric Health results) System Alanine 16 Normal (applies Alanine [facility] aminotransferase {IU/L} to non-numeric Aminotransfer Heal th [Enzymatic results) ase, Serum System activity/volume] in Serum or Plasma Calcium 10.1 Normal (applies Calcium, [facility] [Mass/volume] in mg/dl to non-numeric Total Serum Health Serum or Plasma results) System A/GRatio 1.76 Normal (applies A/G Ratio [facility] to non-numeric Health results) System Urate 6.8 Normal (applies Uric Acid, [facility] [Mass/volume] in mg/dl to non-numeric Serum Health Serum or Plasma results) System Anion gap in Serum 7.50 Normal (applies Anion Gap [facility] or Plasma mmol/L to non-numeric Health results) System Glomerular 71.44 Normal (applies GFR [facility] filtration to non-numeric Health rate/1.73 sq results) System M.predicted [Volume Rate/Area] in Serum or Plasma by Creatinine-based formula (CKD-EPI) ID Date Data Source [id number] 03/23/2013 01:06:00 AM EST [facility] Name Value Range Interpretation Description Data Sup porting Code Source(s) Document(s ) Phenytoin Below low normal Phenytoin [facility] [Mass/volume] Level, Serum Health System in Serum or Plasma ID Date Data Source [id number] 03/23/2013 01:06:00 AM EST [facility] Name Value Range Interpretation Description Data Sup porting Code Source(s) Document(s ) Phenobarbital 17.7 Normal (applies PHENobarbital [facility] [Mass/volume] in ug/ml to non-numeric Level, Serum Healt h Serum or Plasma results) System ID Date Data Source [id number] 04/21/2013 11:13:00 AM EST [facility] Name Value Range Interpretation Description Data Sup porting Code Source(s) Document(s ) Deprecated Aerobic [facility] Bacteria Culture, Urine Health System identified in Urine by Aerobe culture ID Date Data Source [id number] 04/21/2013 11:13:00 AM EST [facility] Name Value Range Interpretation Description Data Sup porting Code Source(s) Document(s ) Color Yellow Normal (applies Color [facility] to non-numeric Health results) System Appearance of HAZY Normal (applies Urine [facility] Urine to non-numeric Appearance Health results) System Specific gravity 1.019 Normal (applies Urine Specific [place] [facility] of Urine to non-numeric [facility] results) System pH.. 7.0 Normal (applies pH.. [facility] {pH_units} to non-numeric Health results) System Glucose,UA NEG Normal (applies Glucose, UA [facility] to non-numeric Health results) System Protein TR Normal (applies Protein [facility] [Mass/volume] in to non-numeric Health Serum or Plasma results) System BilirubinUrine NEG Normal (applies Bilirubin [facility] to non-numeric Urine Health results) System Urobilinogen Normal (applies Urobilinogen [facility] [Mass/volume] in to non-numeric UA Health Urine results) System Ketones NEG Normal (applies Ketones UA [facility] [Mass/volume] in to non-numeric Health Urine results) System Nitrate+Nitrite Negative Normal (applies Nitrite [facility] [Mass/volume] in to non-numeric Health Unspecified results) System specimen Leukocyte Large Abnormal Leukocyte [facility] esterase (applies to Esterase Health [Units/volume] non-numeric Concentration System in Urine results) Leukocytes 59 {/HPF} Normal (applies White Blood [facility] [#/volume] in to non-numeric Cells Health Unspecified results) System specimen by Automated count RedBloodCells 11 {/HPF} Normal (applies Red Blood [facility] to non-numeric Cells Health results) System Epithelial cells 19 {/HPF} Normal (applies Epithelial [facility] [Presence] in to non-numeric Cells Health Unspecified results) System specimen by Wet preparation Mucus RARE Normal (applies Mucus [facility] to non-numeric Health results) System Bacteria MOD Normal (applies Bacteria [facility] [Presence] in to non-numeric Health Unspecified results) System specimen UrineBlood NEG Normal (applies Urine Blood [facility] to non-numeric Health results) System ID Date Data Source [id number] 04/21/2013 11:43:00 AM EST [facility] Name Value Range Interpretation Description Data Sup porting Code Source(s) Document(s ) Leukocytes 7.4 Normal (applies WBC Count [facility] [#/volume] in {10^3_uL to non-numeric Health Unspecified } results) System specimen by Automated count Erythrocytes 5.02 Normal (applies RBC Count [facility] [#/volume] in {10^6_uL to non-numeric Health Blood by } results) System Automated count Hemoglobin 14.8 Normal (applies Hemoglobin, [facility] [Mass/volume] in {gm/dL} to non-numeric Whole Blood Health Blood results) System Hematocrit 44.0 % Normal (applies Hematocrit, [facility] [Volume to non-numeric Whole Blood Health Fraction] of results) System Blood Erythrocyte mean 87.8 fl Normal (applies MCV [facility] corpuscular to non-numeric Health volume [Entitic results) System volume] by Automated count Erythrocyte mean 29.5 pg Normal (applies MCH [facility] corpuscular to non-numeric Health hemoglobin results) System [Entitic mass] by Automated count Erythrocyte mean 33.6 Normal (applies [facility] corpuscular {gm/dL} to non-numeric Health hemoglobin results) System concentration [Mass/volume] by Automated count Erythrocyte 15.3 % Above high normal RDW [facility] distribution Health width [Entitic System volume] by Automated count Platelets 297 Normal (applies Platelet [facility] [#/volume] in {10^3_uL to non-numeric Count Health Plasma by } results) System Automated count Platelet mean 9.2 fl Normal (applies MPV [facility] volume [Entitic to non-numeric Health volume] in Blood results) System by Automated count Monocytes 0.4 Normal (applies Monocyte [facility] [#/volume] in {10^3_uL to non-numeric Count Health Blood by Manual } results) System count Eosinophils 0.1 Normal (applies Eosinophil [facility] [#/volume] in {10^3_uL to non-numeric Count Blood Health Blood } results) System Basophils 0.0 Normal (applies Basophil [facility] [#/volume] in {10^3_uL to non-numeric Count Health Blood by } results) System Automated count Neutrophils 4.1 Normal (applies Absolute [facility] [#/volume] in {10^3_uL to non-numeric Neutrophil Health Body fluid } results) Count System Lymphocyte 2.7 Normal (applies Lymphocyte [facility] percent {10^3_uL to non-numeric Absolute Health differential } results) System count (procedure) Neutrophils/100 56.0 % Normal (applies Neutrophil % [place] [facility] leukocytes in to non-numeric Health Blood by results) System Automated count Monocytes/100 5.9 % Normal (applies Monocyte % [facility] leukocytes in to non-numeric Health Blood results) System Eosinophils/100 1.2 % Normal (applies Eosinophil % [place] [facility] leukocytes in to non-numeric Health Unspecified results) System specimen Basophils/100 0.5 % Normal (applies Basophil % [facility] leukocytes in to non-numeric Health Unspecified results) System specimen by Manual count Lymphocytes 36.4 % Normal (applies Lymphocyte % [facility] [#/volume] in to non-numeric Health Blood by results) System Automated count ID Date Data Source [id number] 04/21/2013 12:40:00 PM EST [facility] Name Value Range Interpretation Code Description Data Nany rce(s) Supporting Document(s ) C.Trachom Normal (applies to C. Trachomatis [facility] atisAmp non-numeric Amp [facility] results) N.Gonorrh Normal (applies to N. Gonorrhea by [facility] eabyLCR non-numeric LCR [facility] results) ID Date Data Source [id number] 04/21/2013 12:40:00 PM EST [facility] System Name Value Range Interpretation Description Data Sup porting Code Source(s) Document(s ) Sodium 138 Normal (applies Sodium, Serum [facility] [Moles/volume] in mmol/L to non-numeric Health Serum or Plasma results) System Potassium 4.2 Normal (applies Potassium, [facility] [Mass/volume] in mmol/L to non-numeric Serum Health Serum or Plasma results) System Chloride 104 Normal (applies Chloride, [facility] [Moles/volume] in mmol/L to non-numeric Serum Health Serum or Plasma results) System Carbon dioxide, 27.6 Normal (applies CO2, Serum [facility] total mmol/L to non-numeric Health [Moles/volume] in results) System Serum or Plasma TotalProtein 7.2 Normal (applies Total Protein [facility] mg/dl to non-numeric Health results) System Glucose 90 Normal (applies Glucose, [facility] [Mass/volume] in mg/dL to non-numeric Serum Health Serum or Plasma results) System Urea nitrogen 12 Normal (applies Blood Urea [facility] [Mass/volume] in mg/dl to non-numeric Nitrogen, Health Serum or Plasma results) Serum System Creatinine 0.97 Normal (applies Creatinine, [facility] [Mass/volume] in mg/dl to non-numeric Serum Health Serum or Plasma results) System Alkaline 113 Normal (applies Alkaline [facility] phosphatase {IU/L} to non-numeric Phosphatase, Health isoenzymes results) Serum System [Enzymatic activity/volume] in Serum or Plasma by Heat stability Bilirubin.total 0.3 Normal (applies Bilirubin, [facility] [Mass/volume] in mg/dl to non-numeric Serum Total Health Serum or Plasma results) System Aspartate 28 Normal (applies Aspartate [facility] aminotransferase {IU/L} to non-numeric Transaminase, Heal th [Enzymatic results) Serum System activity/volume] in Serum or Plasma by With P-5'-P Albumin 4.7 Normal (applies Albumin, [facility] [Mass/volume] in {gm/dl} to non-numeric Serum Health Serum or Plasma results) System I.Phosphorus 2.7 Normal (applies I. Phosphorus [facility] mg/dl to non-numeric Health results) System Alanine 16 Normal (applies Alanine [facility] aminotransferase {IU/L} to non-numeric Aminotransfer Heal th [Enzymatic results) ase, Serum System activity/volume] in Serum or Plasma Calcium 10.4 Above high Calcium, [facility] [Mass/volume] in mg/dl normal Total Serum Health Serum or Plasma System A/GRatio 1.88 Normal (applies A/G Ratio [facility] to non-numeric Health results) System Urate 5.4 Normal (applies Uric Acid, [facility] [Mass/volume] in mg/dl to non-numeric Serum Health Serum or Plasma results) System Anion gap in Serum 6.40 Normal (applies Anion Gap [place] [facility] or Plasma mmol/L to non-numeric Health results) System Glomerular 61.32 Normal (applies GFR [facility] filtration to non-numeric Health rate/1.73 sq results) System M.predicted [Volume Rate/Area] in Serum or Plasma by Creatinine-based formula (CKD-EPI) ID Date Data Source [id number] 04/23/2013 07:19:00 PM EST [facility] Name Value Range Interpretation Description Data Sup porting Code Source(s) Document(s ) Leukocytes 8.0 Normal (applies WBC Count [facility] [#/volume] in {10^3_uL to non-numeric Health Unspecified } results) System specimen by Automated count Erythrocytes 5.27 Normal (applies RBC Count [facility] [#/volume] in {10^6_uL to non-numeric Health Blood by } results) System Automated count Hemoglobin 15.6 Normal (applies Hemoglobin, [facility] [Mass/volume] in {gm/dL} to non-numeric Whole Blood Health Blood results) System Hematocrit 46.1 % Normal (applies Hematocrit, [facility] [Volume to non-numeric Whole Blood Health Fraction] of results) System Blood Erythrocyte mean 87.5 fl Normal (applies MCV [facility] corpuscular to non-numeric Health volume [Entitic results) System volume] by Automated count Erythrocyte mean 29.5 pg Normal (applies MCH [facility] corpuscular to non-numeric Health hemoglobin results) System [Entitic mass] by Automated count Erythrocyte mean 33.8 Normal (applies MCHC [facility] corpuscular {gm/dL} to non-numeric Health hemoglobin results) System concentration [Mass/volume] by Automated count Erythrocyte 14.7 % Above high normal RDW [facility] distribution Health width [Entitic System volume] by Automated count Platelets 305 Normal (applies Platelet [facility] [#/volume] in {10^3_uL to non-numeric Count Health Plasma by } results) System Automated count Platelet mean 8.8 fl Normal (applies MPV [facility] volume [Entitic to non-numeric Health volume] in Blood results) System by Automated count Monocytes 0.5 Normal (applies Monocyte [facility] [#/volume] in {10^3_uL to non-numeric Count Health Blood by Manual } results) System count Eosinophils 0.2 Normal (applies Eosinophil [facility] [#/volume] in {10^3_uL to non-numeric Count Blood Health Blood } results) System Neutrophils 4.2 Normal (applies Absolute [facility] [#/volume] in {10^3_uL to non-numeric Neutrophil Health Body fluid } results) Count System Basophils 0.0 Normal (applies Basophil [facility] [#/volume] in {10^3_uL to non-numeric Count Health Blood by } results) System Automated count Lymphocyte 3.1 Normal (applies Lymphocyte [facility] percent {10^3_uL to non-numeric Absolute [facility] differential } results) System count (procedure) Neutrophils/100 52.9 % Below low normal Neutrophil % [facility] [facility] leukocytes in [facility] Blood by System Automated count Monocytes/100 6.3 % Normal (applies Monocyte % [facility] leukocytes in to non-numeric Health Blood results) System Eosinophils/100 2.0 % Normal (applies Eosinophil % [place] [facility] leukocytes in to non-numeric Health Unspecified results) System specimen Basophils/100 0.4 % Normal (applies Basophil % [facility] leukocytes in to non-numeric Health Unspecified results) System specimen by Manual count Lymphocytes 38.4 % Normal (applies Lymphocyte % [facility] [#/volume] in to non-numeric Health Blood by results) System Automated count ID Date Data Source [id number] 04/23/2013 07:19:00 PM EST [facility] Name Value Range Interpretation Description Data Sup porting Code Source(s) Document(s ) Phenytoin 6.9 Below low normal Phenytoin [facility] [Mass/volume] ug/ml Level, Serum Health System in Serum or Plasma ID Date Data Source [id number] 04/23/2013 07:19:00 PM EST [facility] Name Value Range Interpretation Description Data Sup porting Code Source(s) Document(s ) Phenobarbital 13.1 Below low normal PHENobarbital [facility] [Mass/volume] in ug/ml Level, Serum Health Serum or Plasma System ID Date Data Source [id number] 09/03/2014 12:52:00 AM EDT [facility] Name Value Range Interpretation Description Data Sup porting Code Source(s) Document(s ) Leukocytes 8.9 Normal (applies WBC Count [facility] [#/volume] in {10^3_uL to non-numeric Health Unspecified } results) System specimen by Automated count Erythrocytes 5.04 Normal (applies RBC Count [facility] [#/volume] in {10^6_uL to non-numeric Health Blood by } results) System Automated count Hemoglobin 14.4 Normal (applies Hemoglobin [facility] [Mass/volume] in {gm/dL} to non-numeric Health Blood results) System Hematocrit 44.6 % Normal (applies Hematocrit [facility] [Volume to non-numeric Health Fraction] of results) System Blood Erythrocyte mean 88.5 fl Normal (applies MCV [facility] corpuscular to non-numeric Health volume [Entitic results) System volume] by Automated count Erythrocyte mean 28.6 pg Normal (applies MCH [facility] corpuscular to non-numeric Health hemoglobin results) System [Entitic mass] by Automated count Erythrocyte mean 32.3 Normal (applies MCHC [facility] corpuscular {gm/dL} to non-numeric Health hemoglobin results) System concentration [Mass/volume] by Automated count Erythrocyte 13.6 % Normal (applies RDW-CV [facility] distribution to non-numeric Health width [Entitic results) System volume] by Automated count Platelets 331 Normal (applies Platelet Count [facility] [#/volume] in {10^3_uL to non-numeric Health Plasma by } results) System Automated count Platelet mean 10.1 fl Normal (applies MPV [facility] volume [Entitic to non-numeric Health volume] in Blood results) System by Automated count Nucleated 0.0 Normal (applies NRBC % [facility] erythrocytes {/100_WB to non-numeric Health [#/volume] in C} results) System Body fluid NRBC# 0.00 Normal (applies NRBC # [facility] {10^6_uL to non-numeric Health } results) System Neutrophils/100 59.1 % Normal (applies Neutrophil % [place] [facility] leukocytes in to non-numeric Health Blood by results) System Automated count Neutrophils 5.3 Normal (applies Neutrophil # [facility] [#/volume] in {10^3_uL to non-numeric Health Body fluid } results) System Lymphocytes 31.3 % Normal (applies Lymphocyte % [facility] [#/volume] in to non-numeric Health Blood by results) System Automated count Lymphocyte 2.8 Normal (applies Lymphocyte # [facility] percent {10^3_uL to non-numeric Health differential } results) System count (procedure) Monocytes/100 7.4 % Normal (applies Monocyte % [facility] leukocytes in to non-numeric Health Blood results) System Monocytes 0.7 Normal (applies Monocyte # [facility] [#/volume] in {10^3_uL to non-numeric Health Blood by Manual } results) System count Eosinophils/100 1.5 % Above high Eosinophil % [facility] leukocytes in normal Health Unspecified System specimen Eosinophils 0.13 Normal (applies Eosinophil # [facility] [#/volume] in {10^3_uL to non-numeric Health Blood } results) System Basophils/100 0.4 % Normal (applies Basophil % [facility] leukocytes in to non-numeric Health Unspecified results) System specimen by Manual count Basophils 0.04 Normal (applies Basophil # [facility] [#/volume] in {10^3_uL to non-numeric Health Blood by } results) System Automated count ImmatureGranuloc 0.03 Normal (applies Immature [facility] ytes# {10^3_uL to non-numeric Granulocytes # Health } results) System ImmatureGranuloc 0.3 % Normal (applies Immature [facility] ytes% to non-numeric Granulocytes % Health results) System ID Date Data Source [id number] 09/03/2014 12:52:00 AM EDT [facility] Name Value Range Interpretation Description Data Sup porting Code Source(s) Document(s ) Sodium 138 Normal (applies Sodium, Serum [facility] [Moles/volume] in mmol/L to non-numeric Health Serum or Plasma results) System Potassium 3.9 Normal (applies Potassium, [facility] [Mass/volume] in mmol/L to non-numeric Serum Health Serum or Plasma results) System Chloride 109 Normal (applies Chloride, [facility] [Moles/volume] in mmol/L to non-numeric Serum Health Serum or Plasma results) System Carbon dioxide, 20.3 Below low normal CO2, Serum [facility] total mmol/L [facility] [Moles/volume] in System Serum or Plasma TotalProtein 6.5 Normal (applies Total Protein [facility] mg/dl to non-numeric Health results) System Glucose 103 Normal (applies Glucose, [facility] [Mass/volume] in mg/dL to non-numeric Serum Health Serum or Plasma results) System Urea nitrogen 13 Normal (applies Blood Urea [facility] [Mass/volume] in mg/dl to non-numeric Nitrogen, Health Serum or Plasma results) Serum System Creatinine 1.06 Normal (applies Creatinine, [facility] [Mass/volume] in mg/dl to non-numeric Serum Health Serum or Plasma results) System Alkaline 87 Normal (applies Alkaline [facility] phosphatase {IU/L} to non-numeric Phosphatase, Health isoenzymes results) Serum System [Enzymatic activity/volume] in Serum or Plasma by Heat stability Bilirubin.total 0.3 Normal (applies Bilirubin, [facility] [Mass/volume] in mg/dl to non-numeric Serum Total Health Serum or Plasma results) System DirectBilirubin 0.1 Normal (applies Direct [facility] mg/dl to non-numeric Bilirubin Health results) System Aspartate 15 Normal (applies Aspartate [facility] aminotransferase {IU/L} to non-numeric Transaminase, Heal th [Enzymatic results) Serum System activity/volume] in Serum or Plasma by With P-5'-P Albumin 4.0 Normal (applies Albumin, [facility] [Mass/volume] in {gm/dl} to non-numeric Serum Health Serum or Plasma results) System I.Phosphorus 3.3 Normal (applies I. Phosphorus [facility] mg/dl to non-numeric Health results) System Alanine 16 Normal (applies Alanine [facility] aminotransferase {IU/L} to non-numeric Aminotransfer Heal th [Enzymatic results) ase, Serum System activity/volume] in Serum or Plasma Calcium 9.6 Normal (applies Calcium, [facility] [Mass/volume] in mg/dl to non-numeric Total Serum Health Serum or Plasma results) System A/GRatio 1.60 Normal (applies A/G Ratio [facility] to non-numeric Health results) System Urate 5.8 Normal (applies Uric Acid, [facility] [Mass/volume] in mg/dl to non-numeric Serum Health Serum or Plasma results) System Anion gap in Serum 8.70 Normal (applies Anion Gap [facility] [facility] or Plasma mmol/L to non-numeric Health results) System Glomerular 55.03 Normal (applies GFR [facility] filtration to non-numeric Health rate/1.73 sq results) System M.predicted [Volume Rate/Area] in Serum or Plasma by Creatinine-based formula (CKD-EPI) ID Date Data Source [id number] 09/03/2014 12:52:00 AM EDT [facility] Name Value Range Interpretation Description Data Sup porting Code Source(s) Document(s ) Phenytoin < 2.5 Below low normal Phenytoin [facility] [Mass/volume] Level, Serum [facility] System in Serum or Plasma ID Date Data Source [id number] 02/27/2019 03:52:48 PM EST [facility] Name Value Range Interpretation Description Data Sup porting Code Source(s) Document(s ) Phenytoin 22.8 Above upper panic Phenytoin [facility] [Mass/volume] ug/ml limits Level, Serum [facility] System in Serum or Plasma Result Reporting|Telephone|ZANE Young RN/RB|12/30/2018 at 12:18 PMCalled to:ZANE WILKES RN/[employer] Name:AFReadback by: Jay WILKES RN/RB103/01/2018 / 12:17 PM ID Date Data Source [id number] 02/27/2019 03:52:48 PM EST [facility] Name Value Range Interpretation Description Data Sup porting Code Source(s) Document(s ) TroponinIQuantitative 0.01 Normal (applies Troponin I [facility] ng/ml to non-numeric Quantitative Health results) System Detection of a rise and/or fall of cardi ac troponin I above the cut-off of 0.03 ng/mL is consistent with myocardial infarction in the appropriate clinical setting. With the use of lower cut-offs, testing of se rial samples is required for diagnosis. ID Date Data Source [id number] 02/27/2019 03:52:48 PM EST [facility] Name Value Range Interpretation Description Data Sup porting Code Source(s) Document(s ) Creatine 139 Normal (applies Creatine [facility] kinase.MB {IU/L} to non-numeric Kinase, Serum Health Syst em [Mass/volume results) ] in Serum or Plasma ID Date Data Source [id number] 02/27/2019 03:52:48 PM EST [facility] Name Value Range Interpretation Description Data Sup porting Code Source(s) Document(s ) Sodium 138 Normal (applies Sodium, Serum [facility] [Moles/volume] in mmol/L to non-numeric Health Serum or Plasma results) System Potassium 4.6 Normal (applies Potassium, [facility] [Mass/volume] in mmol/L to non-numeric Serum Health Serum or Plasma results) System Chloride 102 Normal (applies Chloride, [facility] [Moles/volume] in mmol/L to non-numeric Serum Health Serum or Plasma results) System Carbon dioxide, 25.0 Normal (applies CO2, Serum [facility] total mmol/L to non-numeric Health [Moles/volume] in results) System Serum or Plasma TotalProtein 6.6 Normal (applies Total Protein [facility] mg/dl to non-numeric Health results) System Glucose 207 Above high Glucose, [facility] [Mass/volume] in mg/dL normal Serum Health Serum or Plasma System Urea nitrogen 13 Normal (applies Blood Urea [facility] [Mass/volume] in mg/dl to non-numeric Nitrogen, Health Serum or Plasma results) Serum System Creatinine 0.92 Normal (applies Creatinine, [facility] [Mass/volume] in mg/dl to non-numeric Serum Health Serum or Plasma results) System Alkaline 98 Normal (applies Alkaline [facility] phosphatase {IU/L} to non-numeric Phosphatase, Health isoenzymes results) Serum System [Enzymatic activity/volume] in Serum or Plasma by Heat stability Bilirubin.total 0.4 Normal (applies Bilirubin, [facility] [Mass/volume] in mg/dl to non-numeric Serum Total Health Serum or Plasma results) System DirectBilirubin 0.1 Normal (applies Direct [facility] mg/dl to non-numeric Bilirubin Health results) System Aspartate 16 Normal (applies Aspartate [facility] aminotransferase {IU/L} to non-numeric Transaminase, Heal th [Enzymatic results) Serum System activity/volume] in Serum or Plasma by With P-5'-P Albumin 4.2 Normal (applies Albumin, [facility] [Mass/volume] in {gm/dl} to non-numeric Serum Health Serum or Plasma results) System I.Phosphorus 4.4 Normal (applies I. Phosphorus [facility] mg/dl to non-numeric Health results) System Alanine 13 Normal (applies Alanine [facility] aminotransferase {IU/L} to non-numeric Aminotransfer Heal th [Enzymatic results) ase, Serum System activity/volume] in Serum or Plasma Calcium 10.3 Above high Calcium, [facility] [Mass/volume] in mg/dl normal Total Serum Health Serum or Plasma System A/GRatio 1.75 Normal (applies A/G Ratio [facility] to non-numeric Health results) System Urate 6.8 Normal (applies Uric Acid, [facility] [Mass/volume] in mg/dl to non-numeric Serum Health Serum or Plasma results) System Anion gap in Serum 11.00 Normal (applies Anion Gap [facility] or Plasma mmol/L to non-numeric Health results) System Glomerular 63.71 Normal (applies GFR [facility] filtration to non-numeric Health rate/1.73 sq results) System M.predicted [Volume Rate/Area] in Serum or Plasma by Creatinine-based formula (CKD-EPI) eGFR will provide clinicians with a more accurate indicator of renal function then the serum creatinine. The eGFR is automa tically calculated from an empiric formula (endorsed by the [employer] ion) which incorporates age, sex, and race.Clinicians may notice surprisingly low GFR's with serum creatinine valueswithin normal range- particularly in elderly wo men (with low muscle mass).In the hospital setting, the eGFR should add an element of safety in drug dosing, in assessing the risk of IV contrast administration, and in assessing vascular risk.The NKF staging system is as follows:Normal: eGFR >90 with no kidney markersStage 1: eGFR >90 with kidney markers*Stage 2: eGFR 60- 89Stage 3: eGFR 30-59Stage 4: eGFR 15-29Stage 5: eGFR <15 (usually requir ing dialysis)*Markers include: Proteinuria, Hematuria, abnormal imaging-studies, or other blood or urine test abnormalities ID Date Data Source [id number] 02/27/2019 03:52:48 PM EST [facility] Name Value Range Interpretation Description Data Sup porting Code Source(s) Document(s ) Leukocytes 12.0 Above high WBC Count [facility] [#/volume] in {10^3_uL normal Health Unspecified } System specimen by Automated count Erythrocytes 5.48 Above high RBC Count [facility] [#/volume] in {10^6_uL normal Health Blood by } System Automated count Hemoglobin 15.4 Normal (applies Hemoglobin [facility] [Mass/volume] in {gm/dL} to non-numeric Health Blood results) System Hematocrit 47.6 % Above high Hematocrit [facility] [Volume normal Health Fraction] of System Blood Erythrocyte mean 86.9 fl Normal (applies MCV [facility] corpuscular to non-numeric Health volume [Entitic results) System volume] by Automated count Erythrocyte mean 28.1 pg Normal (applies MCH [facility] corpuscular to non-numeric Health hemoglobin results) System [Entitic mass] by Automated count Erythrocyte mean 32.4 Normal (applies MCHC [facility] corpuscular {gm/dL} to non-numeric Health hemoglobin results) System concentration [Mass/volume] by Automated count Erythrocyte 14.2 % Normal (applies RDW-CV [facility] distribution to non-numeric Health width [Entitic results) System volume] by Automated count Platelets 385 Normal (applies Platelet Count [facility] [#/volume] in {10^3_uL to non-numeric Health Plasma by } results) System Automated count Platelet mean 10.2 fl Normal (applies MPV [facility] volume [Entitic to non-numeric Health volume] in Blood results) System by Automated count Nucleated 0.0 Normal (applies NRBC % [facility] erythrocytes {/100_WB to non-numeric Health [#/volume] in C} results) System Body fluid NRBC# 0.00 Normal (applies NRBC # [facility] {10^3_uL to non-numeric Health } results) System Neutrophils/100 68.2 % Normal (applies Neutrophil % [facility] leukocytes in to non-numeric Health Blood by results) System Automated count Neutrophils 8.2 Above high Neutrophil # [facility] [#/volume] in {10^3_uL normal Health Body fluid } System Lymphocytes 24.1 % Normal (applies Lymphocyte % [facility] [#/volume] in to non-numeric Health Blood by results) System Automated count Lymphocyte 2.9 Normal (applies Lymphocyte # [facility] percent {10^3_uL to non-numeric Health differential } results) System count (procedure) Monocytes/100 5.8 % Normal (applies Monocyte % [facility] leukocytes in to non-numeric Health Blood results) System Monocytes 0.7 Normal (applies Monocyte # [facility] [#/volume] in {10^3_uL to non-numeric Health Blood by Manual } results) System count Eosinophils/100 0.9 % Normal (applies Eosinophil % [place] [facility] leukocytes in to non-numeric Health Unspecified results) System specimen Eosinophils 0.11 Normal (applies Eosinophil # [facility] [#/volume] in {10^3_uL to non-numeric Health Blood } results) System Basophils/100 0.7 % Normal (applies Basophil % [facility] leukocytes in to non-numeric Health Unspecified results) System specimen by Manual count Basophils 0.08 Normal (applies Basophil # [facility] [#/volume] in {10^3_uL to non-numeric Health Blood by } results) System Automated count ImmatureGranuloc 0.04 Normal (applies Immature [facility] ytes# {10^3_uL to non-numeric Granulocytes # Health } results) System ImmatureGranuloc 0.3 % Normal (applies Immature [facility] ytes% to non-numeric Granulocytes % Health results) System ID Date Data Source [id number] 02/27/2019 03:52:48 PM EST [facility] Name Value Range Interpretation Description Data Sup porting Code Source(s) Document(s ) Prothrombintim 12.10 Normal (applies Prothrombin [facility](PT) {seconds to non-numeric time (PT) Health System } results) INR in Blood 1.06 Normal (applies INR Result [facility] by Coagulation {Ratio} to non-numeric Health Sys tem assay results) Normal = 0.7-1.1Therapeutic = 2.0-3.0Mec hanical Heart = 3.0-4.5 ID Date Data Source [id number] 02/27/2019 03:52:48 PM EST [facility] Name Value Range Interpretation Description Data Sup porting Code Source(s) Document(s ) Phenytoin 16.5 Normal (applies Phenytoin [facility] [Mass/volume] ug/ml to non-numeric Level, Serum Health S ystem in Serum or results) Plasma ID Date Data Source [id number] 02/27/2019 03:52:48 PM EST [facility] Name Value Range Interpretation Description Data Sup porting Code Source(s) Document(s ) Phenobarbital 29.5 Normal (applies Phenobarbital [facility] [Mass/volume] in ug/ml to non-numeric Level, Serum Healt h Serum or Plasma results) System ID Date Data Source [id number] 02/27/2019 03:52:48 PM EST [facility] Name Value Range Interpretation Description Data Sup porting Code Source(s) Document(s ) Leukocytes 7.8 Normal (applies WBC Count [facility] [#/volume] in {10^3_uL to non-numeric Health Unspecified } results) System specimen by Automated count Erythrocytes 4.90 Normal (applies RBC Count [facility] [#/volume] in {10^6_uL to non-numeric Health Blood by } results) System Automated count Hemoglobin 14.0 Normal (applies Hemoglobin [facility] [Mass/volume] in {gm/dL} to non-numeric Health Blood results) System Hematocrit 43.0 % Normal (applies Hematocrit [facility] [Volume to non-numeric Health Fraction] of results) System Blood Erythrocyte mean 87.8 fl Normal (applies MCV [facility] corpuscular to non-numeric Health volume [Entitic results) System volume] by Automated count Erythrocyte mean 28.6 pg Normal (applies MCH [facility] corpuscular to non-numeric Health hemoglobin results) System [Entitic mass] by Automated count Erythrocyte mean 32.6 Below low normal MCHC [facility] corpuscular {gm/dL} Health hemoglobin System concentration [Mass/volume] by Automated count Erythrocyte 15.3 % Above high RDW-CV [facility] distribution normal Health width [Entitic System volume] by Automated count Platelets 330 Normal (applies Platelet Count [facility] [#/volume] in {10^3_uL to non-numeric Health Plasma by } results) System Automated count Platelet mean 11.0 fl Above high MPV [facility] volume [Entitic normal Health volume] in Blood System by Automated count Monocytes 0.5 Normal (applies Monocyte # [facility] [#/volume] in {10^3_uL to non-numeric Health Blood by Manual } results) System count Eosinophils 0.15 Normal (applies Eosinophil # [facility] [#/volume] in {10^3_uL to non-numeric Health Blood } results) System Neutrophils 3.4 Normal (applies Neutrophil # [facility] [#/volume] in {10^3_uL to non-numeric Health Body fluid } results) System Basophils 0.06 Normal (applies Basophil # [facility] [#/volume] in {10^3_uL to non-numeric Health Blood by } results) System Automated count Lymphocyte 3.6 Normal (applies Lymphocyte # [facility] percent {10^3_uL to non-numeric Health differential } results) System count (procedure) Neutrophils/100 43.6 % Below low normal Neutrophil % [facility] leukocytes in Health Blood by System Automated count Monocytes/100 6.9 % Normal (applies Monocyte % [facility] leukocytes in to non-numeric Health Blood results) System Eosinophils/100 1.9 % Normal (applies Eosinophil % [place] [facility] leukocytes in to non-numeric Health Unspecified results) System specimen Basophils/100 0.8 % Normal (applies Basophil % [facility] leukocytes in to non-numeric Health Unspecified results) System specimen by Manual count Lymphocytes 46.5 % Normal (applies Lymphocyte % [facility] [#/volume] in to non-numeric Health Blood by results) System Automated count ImmatureGranuloc 0.3 % Normal (applies Immature [facility] ytes% to non-numeric Granulocytes % Health results) System Nucleated 0.0 Normal (applies NRBC % [facility] erythrocytes {/100_WB to non-numeric Health [#/volume] in C} results) System Body fluid ImmatureGranuloc 0.02 Normal (applies Immature [facility] ytes# {10^3_uL to non-numeric Granulocytes # Health } results) System NRBC# 0.00 Below low normal NRBC # [facility] {10^3_uL Health } System ID Date Data Source [id number] 02/27/2019 03:52:48 PM EST [facility] Name Value Range Interpretation Description Data Sup porting Code Source(s) Document(s ) Triglyceride 130 Normal (applies Triglycerides, [facility] [Mass/volume] mg/dl to non-numeric Serum Health in Serum or results) System Plasma Optimal = < 100 mg/dLBoderline High = 15 0 - 199 mg/dLHigh = 200 - 499 mg/dLVery High = > 500 mg/dL Cholesterol 192 mg/dl Normal (applies Cholesterol, Serum [facility] [Mass/volume] in to non-numeric Health S yste Serum or Plasma results) <200 mg/dL = [id number] - 239 md/dL = Borderline>240 mg/dL = High Risk Cholesterol in HDL 64.0 mg/dL Normal (applies HDL Cholestero l, [facility] [Mass/volume] in to non-numeric Serum Health S be2te Serum or Plasma results) Cholesterol in LDL 102 mg/dL Normal (applies Low Density [facility] [Mass/volume] in to non-numeric Lipoprotein, Healt h System Serum or Plasma results) Calculated OPTIMAL: LESS THAN 100 mg/dLNEAR OPTIMAL : 100 - 129 mg/dLBODERLINE HIGH: 130 - 150 mg/dL Cholesterol in VLDL 26 Normal (applies to VLDL, Serum [facility] [Mass/volume] in Serum non-numeric results) System or Plasma CHDRisk 3.00 Normal (applies to CHD Risk [facility] non-numeric results) System ID Date Data Source [id number] 02/27/2019 03:52:48 PM EST [facility] Name Value Range Interpretation Description Data Sup porting Code Source(s) Document(s ) Sodium 141 Normal (applies Sodium, Serum [facility] [Moles/volume] in mmol/L to non-numeric Health Serum or Plasma results) System Potassium 4.0 Normal (applies Potassium, [facility] [Mass/volume] in mmol/L to non-numeric Serum Health Serum or Plasma results) System Chloride 108 Above high Chloride, [facility] [Moles/volume] in mmol/L normal Serum Health Serum or Plasma System Carbon dioxide, 22.0 Normal (applies CO2, Serum [facility] total mmol/L to non-numeric Health [Moles/volume] in results) System Serum or Plasma TotalProtein 6.0 Below low normal Total Protein [facility] mg/dl [facility] System Glucose 213 Above high Glucose, [facility] [Mass/volume] in mg/dL normal Serum Health Serum or Plasma System Urea nitrogen 10 Normal (applies Blood Urea [facility] [Mass/volume] in mg/dl to non-numeric Nitrogen, Health Serum or Plasma results) Serum System Creatinine 0.80 Normal (applies Creatinine, [facility] [Mass/volume] in mg/dl to non-numeric Serum Health Serum or Plasma results) System Alkaline 108 Normal (applies Alkaline [facility] phosphatase {IU/L} to non-numeric Phosphatase, Health isoenzymes results) Serum System [Enzymatic activity/volume] in Serum or Plasma by Heat stability Bilirubin.total 0.1 Below low normal Bilirubin, [facility] [Mass/volume] in mg/dl Serum Total Health Serum or Plasma System DirectBilirubin 0.1 Normal (applies Direct [facility] mg/dl to non-numeric Bilirubin Health results) System Aspartate 18 Normal (applies Aspartate [facility] aminotransferase {IU/L} to non-numeric Transaminase, Heal th [Enzymatic results) Serum System activity/volume] in Serum or Plasma by With P-5'-P Albumin 3.7 Below low normal Albumin, [facility] [Mass/volume] in {gm/dl} Serum Health Serum or Plasma System I.Phosphorus 3.4 Normal (applies I. Phosphorus [facility] mg/dl to non-numeric Health results) System Alanine 19 Normal (applies Alanine [facility] aminotransferase {IU/L} to non-numeric Aminotransfer Heal th [Enzymatic results) ase, Serum System activity/volume] in Serum or Plasma Calcium 9.3 Normal (applies Calcium, [facility] [Mass/volume] in mg/dl to non-numeric Total Serum Health Serum or Plasma results) System A/GRatio 1.61 Normal (applies A/G Ratio [facility] to non-numeric Health results) System Urate 5.8 Normal (applies Uric Acid, [facility] [Mass/volume] in mg/dl to non-numeric Serum Health Serum or Plasma results) System Anion gap in Serum 11.00 Normal (applies Anion Gap [place]o savi or Plasma mmol/L to non-numeric Health results) System Glomerular 74.82 Normal (applies GFR [facility] filtration to non-numeric Health rate/1.73 sq results) System M.predicted [Volume Rate/Area] in Serum or Plasma by Creatinine-based formula (CKD-EPI) eGFR will provide clinicians with a more accurate indicator of renal function then the serum creatinine. The eGFR is automa tically calculated from an empiric formula (endorsed by the National Kidney [employer] ion) which incorporates age, sex, and race.Clinicians may notice surprisingly low GFR's with serum creatinine valueswithin normal range- particularly in elderly wo men (with low muscle mass).In the hospital setting, the eGFR should add an element of safety in drug dosing, in assessing the risk of IV contrast administration, and in assessing vascular risk.The NKF staging system is as follows:Normal: eGFR >90 with no kidney markersStage 1: eGFR >90 with kidney markers*Stage 2: eGFR 60- 89Stage 3: eGFR 30-59Stage 4: eGFR 15-29Stage 5: eGFR <15 (usually requir ing dialysis)*Markers include: Proteinuria, Hematuria, abnormal imaging-studies, or other blood or urine test abnormalities ID Date Data Source [id number] 02/27/2019 03:52:48 PM EST [facility] Name Value Range Interpretation Description Data Source(s ) Supporting Code Document(s ) Troponin 0.02 Normal (applies to Troponin I [facility] IQuantit ng/mL non-numeric Quantitative - Health System ative-MV results) MV Only Only ID Date Data Source [id number] 02/27/2019 03:52:48 PM EST [facility] Name Value Range Interpretation Description Data Sup porting Code Source(s) Document(s ) Prothrombintim 10.20 Normal (applies Prothrombin [facility](PT) {seconds to non-numeric time (PT) Health System } results) INR in Blood 0.96 Normal (applies INR Result [facility] by Coagulation {Ratio} to non-numeric Health Sys tem assay results) Normal = 0.7-1.1Therapeutic = 2.0-3.0Mec hanical Heart = 3.0-4.5 ID Date Data Source [id number] 02/27/2019 03:52:48 PM EST [facility] Name Value Range Interpretation Description Data Sup porting Code Source(s) Document(s ) aPTT in Blood 24.5 Normal (applies Activated [facility] by Coagulation {Seconds to non-numeric Partial Health assay } results) Thromboplastin System Time ID Date Data Source [id number] 02/27/2019 03:52:48 PM EST [facility] Name Value Range Interpretation Description Data Source(s ) Supporting Code Document(s ) PH* 7.372 Normal (applies to PH* [facility] {pH_units} non-numeric Health System results) PCO2* 47.5 Normal (applies to PCO2* [facility] {mm_Hg} non-numeric Health System results) BaseExces 2.30 Normal (applies to Base Excess* [facility] s* {mEq/L} non-numeric Health System results) HCO3* 27.5 Above high normal HCO3* [facility] mmol/L [facility] System Chloride, 106 mmol/L Normal (applies to Chloride, VB [facility] VB non-numeric Health System results) Lactate. 2.3 mmol/L Above upper panic Lactate. [facility] limits Health System Result Reporting|Telephone|DR KRUPA RODGERS | 02/22/2019 at 5:32 PMCalled to:DR KRUPA RODGERSTech Name:RVReadback by:DR KRUPA VALDOVINOS 02/22/2019 / 5:28 PM Glucose,VB 146 mg/dL Above high Glucose, VB [facility] normal System Potassium,VB 4.5 mmol/L Normal (applies Potassium, VB [facility] to non-numeric System results) Sodium,VB 139 mmol/L Normal (applies Sodium, VB [facility] ealth to non-numeric System results) IonizedCalcium,VB 1.33 mmol/L Above high Ionized Calcium, [facility] normal VB System [id number]* 71.90 % Normal (applies O2 Saturation* [facility] to non-numeric System results) ID Date Data Source [id number] 02/27/2019 03:52:48 PM [facility] alth System Name Value Range Interpretation Description Data Source(s ) Supporting Code Document(s ) PH* 7.408 Normal (applies to PH* [facility] {pH_units} non-numeric Health System results) PCO2* 42.4 Normal (applies to PCO2* [facility] {mm_Hg} non-numeric Health System results) BaseExces 2.00 Normal (applies to Base Excess* [facility]* {mEq/L} non-numeric Health System results) HCO3* 26.7 Normal (applies to HCO3* [facility] mmol/L non-numeric Health System results) Chloride, 105 mmol/L Normal (applies to Chloride, VB [facility] VB non-numeric Health System results) Lactate. 2.3 mmol/L Above upper panic [facility]. [facility] Result Reporting|Telephone|CALL & READ B ACK BY SANJAYKURT| 02/23/2019 at 7:43 AMCalled to:Tech Name:Readback by: 02/23/2019 / 7 :43 AM Glucose,VB 129 mg/dL Above high Glucose, VB [facility] normal System Potassium,VB 5.0 mmol/L Normal (applies Potassium, [facility] to non-numeric System results) Sodium,VB 139 mmol/L Normal (applies Sodium, VB [facility] e[facility] to non-numeric System results) IonizedCalcium,VB 1.29 mmol/L Normal (applies Ionized Calc ium, [facility] to non-numeric VB System results) [id number]* 81.80 % Normal (applies O2 Saturation* [facility] to non-numeric System results) ID Date Data Source [id number] 02/27/2019 03:52:48 PM EST [facility] Name Value Range Interpretation Description Data Source(s ) Supporting Code Document(s ) Homocyst 17.6 Above high normal Homocysteine [facility] eineQuan umol/L Quantitative, Health System titative Serum ,Serum Homocysteine is increased by functional deficiency of folateor vitamin B12. Testing for methylmalonic acid differentiates be tween these deficiencies. Other causesof increased homocysteine include renal hayley lure, folateantagonists such as methotrexate and phenytoin, and exposure to nitrous oxide.Test Performed at:[facility], [place], [place] [address]HwarwljlPhilip Esteban M.D. ID Date Data Source [id number] 02/27/2019 03:52:48 PM EST [facility] Name Value Range Interpretation Description Data Sup porting Code Source(s) Document(s ) Leukocytes 11.8 Above high WBC Count [facility] [#/volume] in {10^3_uL normal Health Unspecified } System specimen by Automated count Erythrocytes 5.40 Above high RBC Count [facility] [#/volume] in {10^6_uL normal Health Blood by } System Automated count Hemoglobin 15.5 Normal (applies Hemoglobin [facility] [Mass/volume] in {gm/dL} to non-numeric Health Blood results) System Hematocrit 47.8 % Above high Hematocrit [facility] [Volume normal Health Fraction] of System Blood Erythrocyte mean 88.5 fl Normal (applies MCV [facility] corpuscular to non-numeric Health volume [Entitic results) System volume] by Automated count Erythrocyte mean 28.7 pg Normal (applies MCH [facility] corpuscular to non-numeric Health hemoglobin results) System [Entitic mass] by Automated count Erythrocyte mean 32.4 Below low normal [facility]C [facility] corpuscular {gm/dL} Health hemoglobin System concentration [Mass/volume] by Automated count Erythrocyte 15.6 % Above high RDW-CV [facility] distribution normal Health width [Entitic System volume] by Automated count Platelets 335 Normal (applies Platelet Count [facility] [#/volume] in {10^3_uL to non-numeric Health Plasma by } results) System Automated count Platelet mean 11.3 fl Above high MPV [facility] volume [Entitic normal Health volume] in Blood System by Automated count Monocytes 0.6 Normal (applies Monocyte # [facility] [#/volume] in {10^3_uL to non-numeric Health Blood by Manual } results) System count Eosinophils 0.05 Normal (applies Eosinophil # [facility] [#/volume] in {10^3_uL to non-numeric Health Blood } results) System Neutrophils 8.0 Normal (applies Neutrophil # [facility] [#/volume] in {10^3_uL to non-numeric Health Body fluid } results) System Basophils 0.08 Normal (applies Basophil # [facility] [#/volume] in {10^3_uL to non-numeric Health Blood by } results) System Automated count Lymphocyte 3.1 Normal (applies Lymphocyte # [facility] percent {10^3_uL to non-numeric Health differential } results) System count (procedure) Neutrophils/100 67.6 % Normal (applies Neutrophil % [place] [facility] leukocytes in to non-numeric Health Blood by results) System Automated count Monocytes/100 5.2 % Below low normal Monocyte % [facility] leukocytes in Health Blood System Eosinophils/100 0.4 % Normal (applies Eosinophil % [place] leukocytes in to non-numeric Health Unspecified results) System specimen Basophils/100 0.7 % Normal (applies Basophil % [facility] leukocytes in to non-numeric Health Unspecified results) System specimen by Manual count Lymphocytes 25.8 % Normal (applies Lymphocyte % [facility] [#/volume] in to non-numeric Health Blood by results) System Automated count ImmatureGranuloc 0.3 % Normal (applies Immature [facility] ytes% to non-numeric Granulocytes % Health results) System Nucleated 0.0 Normal (applies NRBC % [facility] erythrocytes {/100_WB to non-numeric Health [#/volume] in C} results) System Body fluid ImmatureGranuloc 0.03 Normal (applies Immature [facility] ytes# {10^3_uL to non-numeric Granulocytes # Health } results) System NRBC# 0.00 Below low normal NRBC # [facility] {10^3_uL Health } System ID Date Data Source [id number] 02/27/2019 03:52:48 PM EST [facility] Name Value Range Interpretation Description Data Sup porting Code Source(s) Document(s ) Sodium 137 Normal (applies Sodium, Serum [facility] [Moles/volume mmol/L to non-numeric Health Syst em ] in Serum or results) Plasma Potassium 4.9 Normal (applies Potassium, [facility] [Mass/volume] mmol/L to non-numeric Serum Health Syst em in Serum or results) Plasma [place] Chloride 103 mmol/L Normal (applies Chloride, Serum [facility] [Moles/volume] in to non-numeric Health System Serum or Plasma results) Carbon dioxide, total 23.0 mmol/L Normal (applies CO2, Serum [facility] [Moles/volume] in to non-numeric Health System Serum or Plasma results) TotalProtein 6.6 mg/dl Normal (applies Total Protein [facility] to non-numeric Health System results) Glucose [Mass/volume] 116 mg/dL Above high normal Glucose, S barrie [facility] in Serum or Plasma Health Syst em [place] Urea nitrogen 6 mg/dl Below low Blood Urea [facility] [Mass/volume] in Serum normal Nitrogen, Serum H ealth System or Plasma Creatinine 0.80 mg/dl Normal Creatinine, Serum [facility] [Mass/volume] in Serum (applies to Healt h System or Plasma non-numeric results) Alkaline phosphatase 118 {IU/L} Normal Alkaline [facility] isoenzymes [Enzymatic (applies to Phosphatase, Hea lth System activity/volume] in non-numeric Serum Serum or Plasma by Heat results) stability Bilirubin.total 0.3 mg/dl Normal Bilirubin, Serum [facility] [Mass/volume] in Serum (applies to Total Healt h System or Plasma non-numeric results) DirectBilirubin 0.1 mg/dl Normal Direct Bilirubin [facility] (applies to Health System non-numeric results) Aspartate 12 {IU/L} Normal Aspartate [facility] aminotransferase (applies to Transaminase, Health System [Enzymatic non-numeric Serum activity/volume] in results) Serum or Plasma by With P-5'-P Albumin [Mass/volume] 4.1 {gm/dl} Normal Albumin, Serum [facility] in Serum or Plasma (applies to Health Sy stem non-numeric results) I.Phosphorus 3.5 mg/dl Normal I. Phosphorus [facility] (applies to Health System non-numeric results) Alanine 17 {IU/L} Normal Alanine [facility] aminotransferase (applies to Aminotransferase, [facility] System [Enzymatic non-numeric Serum activity/volume] in results) Serum or Plasma Calcium [Mass/volume] 10.1 mg/dl Normal Calcium, Total [facility] in Serum or Plasma (applies to Serum Health Sy stem non-numeric results) A/GRatio 1.64 Normal A/G Ratio [facility] (applies to Health System non-numeric results) Urate [Mass/volume] in 5.1 mg/dl Normal Uric Acid, Serum [facility] Serum or Plasma (applies to Health Syste m non-numeric results) Anion gap in Serum or 11.00 mmol/L Normal Anion Gap Jono savi Plasma (applies to Health System non-numeric results) Glomerular filtration 74.82 Normal GFR [facility] rate/1.73 sq (applies to Health System M.predicted [Volume non-numeric Rate/Area] in Serum or results) Plasma by Creatinine-based formula (CKD-EPI) eGFR will provide clinicians with a more accurate indicator of renal function then the serum creatinine. The eGFR is automa tically calculated from an empiric formula (endorsed by the National Kidney [employer] ion) which incorporates age, sex, and race.Clinicians may notice surprisingly low GFR's with serum creatinine valueswithin normal range- particularly in elderly wo men (with low muscle mass).In the hospital setting, the eGFR should add an element of safety in drug dosing, in assessing the risk of IV contrast administration, and in assessing vascular risk.The NKF staging system is as follows:Normal: eGFR >90 with no kidney markersStage 1: eGFR >90 with kidney markers*Stage 2: eGFR 60- 89Stage 3: eGFR 30-59Stage 4: eGFR 15-29Stage 5: eGFR <15 (usually requir ing dialysis)*Markers include: Proteinuria, Hematuria, abnormal imaging-studies, or other blood or urine test abnormalities ID Date Data Source [id number] 02/27/2019 03:52:48 PM EST [facility] Name Value Range Interpretation Description Data Sup porting Code Source(s) Document(s ) ProteinSActivity 81 % Normal (applies Protein S [facility] to non-numeric Activity Health results) System This test was performed at:[facility] [address] [id number] Pe rformed at:[facility] [address] [id number] Garcia M.D., Ph.D. ID Date Data Source [id number] 02/27/2019 03:52:48 PM EST [facility] Name Value Range Interpretation Description Data Source(s ) Supporting Code Document(s ) Anti-Thr 137 Above high normal Anti-Thrombin [facility] {%_activi 111, Activity Health System ,Activit ty} y An elevated ATIII is not clinically sign ificant.Only deficiencies are associated with an increasedthrombotic risk.This test wa s performed at:[facility] [address] [id number] Performed at:[facility], [address] [place] [id number] Garcia M.D., Ph.D. ID Date Data Source [id number] 02/27/2019 03:52:48 PM EST [facility] System Name Value Range Interpretation Description Data Sup porting Code Source(s) Document(s ) Protein C, 120 % Normal (applies to Protein C [facility] antigenic non-numeric Antigen Assay Health System assay results) (procedure) Units: % of normalThis test was performe d at:[facility] [address] [id number] Performed at:[facility], [address] [place] [id number] Garcia M.D., Ph.D. ID Date Data Source [id number] 02/27/2019 03:52:48 PM EST [facility] Name Value Range Interpretation Description Data Sup porting Code Source(s) Document(s ) Leukocytes 7.9 Normal (applies WBC Count [facility] [#/volume] in {10^3_uL to non-numeric Health Unspecified } results) System specimen by Automated count Erythrocytes 5.08 Normal (applies RBC Count [facility] [#/volume] in {10^6_uL to non-numeric Health Blood by } results) System Automated count Hemoglobin 14.4 Normal (applies Hemoglobin [facility] [Mass/volume] in {gm/dL} to non-numeric Health Blood results) System Hematocrit 45.0 % Normal (applies Hematocrit [facility] [Volume to non-numeric Health Fraction] of results) System Blood Erythrocyte mean 88.6 fl Normal (applies MCV [facility] corpuscular to non-numeric Health volume [Entitic results) System volume] by Automated count Erythrocyte mean 28.3 pg Normal (applies MCH [facility] corpuscular to non-numeric Health hemoglobin results) System [Entitic mass] by Automated count Erythrocyte mean 32.0 Below low normal [facility] corpuscular {gm/dL} Health hemoglobin System concentration [Mass/volume] by Automated count Erythrocyte 15.2 % Above high RDW-CV [facility] distribution normal Health width [Entitic System volume] by Automated count Platelets 295 Normal (applies Platelet Count [facility] [#/volume] in {10^3_uL to non-numeric Health Plasma by } results) System Automated count Platelet mean 10.7 fl Above high MPV [facility] volume [Entitic normal Health volume] in Blood System by Automated count Monocytes 0.7 Normal (applies Monocyte # [facility] [#/volume] in {10^3_uL to non-numeric Health Blood by Manual } results) System count Eosinophils 0.11 Normal (applies Eosinophil # [facility] [#/volume] in {10^3_uL to non-numeric Health Blood } results) System Neutrophils 4.3 Normal (applies Neutrophil # [facility] [#/volume] in {10^3_uL to non-numeric Health Body fluid } results) System Basophils 0.05 Normal (applies Basophil # [facility] [#/volume] in {10^3_uL to non-numeric Health Blood by } results) System Automated count Lymphocyte 2.8 Normal (applies Lymphocyte # [facility] percent {10^3_uL to non-numeric Health differential } results) System count (procedure) Neutrophils/100 53.8 % Below low normal Neutrophil % [facility] leukocytes in Health Blood by System Automated count Monocytes/100 8.2 % Normal (applies Monocyte % [facility] leukocytes in to non-numeric Health Blood results) System Eosinophils/100 1.4 % Normal (applies Eosinophil % [facility] leukocytes in to non-numeric Health Unspecified results) System specimen Basophils/100 0.6 % Normal (applies Basophil % [facility] leukocytes in to non-numeric Health Unspecified results) System specimen by Manual count Lymphocytes 35.7 % Normal (applies Lymphocyte % [facility] [#/volume] in to non-numeric Health Blood by results) System Automated count ImmatureGranuloc 0.3 % Normal (applies Immature [facility] ytes% to non-numeric Granulocytes % Health results) System Nucleated 0.0 Normal (applies NRBC % [facility] erythrocytes {/100_WB to non-numeric Health [#/volume] in C} results) System Body fluid ImmatureGranuloc 0.02 Normal (applies Immature [facility] ytes# {10^3_uL to non-numeric Granulocytes # Health } results) System NRBC# 0.00 Below low normal NRBC # [facility] {10^3_uL Health } System ID Date Data Source [id number] 02/27/2019 03:52:48 PM EST [facility] Name Value Range Interpretation Description Data Sup porting Code Source(s) Document(s ) Sodium 139 Normal (applies Sodium, Serum [facility] [Moles/volume] mmol/L to non-numeric Health in Serum or results) System Plasma Potassium 4.3 Normal (applies Potassium, [facility] [Mass/volume] mmol/L to non-numeric Serum Health in Serum or results) System Plasma Chloride 106 Normal (applies Chloride, [facility] [Moles/volume] mmol/L to non-numeric Serum Health in Serum or results) System Plasma Carbon dioxide, 24.0 Normal (applies CO2, Serum [facility] total mmol/L to non-numeric Health [Moles/volume] results) System in Serum or Plasma TotalProtein 6.1 Below low normal Total Protein [facility] mg/dl [facility] System Glucose 149 Above high normal Glucose, Serum [facility] [Mass/volume] mg/dL Health in Serum or System Plasma ok Urea nitrogen 11 mg/dl Normal (applies Blood Urea [facility] [Mass/volume] in Serum to non-numeric Nitrogen, Se [facility] System or Plasma results) Creatinine 0.90 mg/dl Normal (applies Creatinine, [facility] [Mass/volume] in Serum to non-numeric Serum He alth System or Plasma results) Alkaline phosphatase 112 {IU/L} Normal (applies Alkaline [facility] isoenzymes [Enzymatic to non-numeric Phosphatase, Health System activity/volume] in results) Serum Serum or Plasma by Heat stability Bilirubin direct and 0.2 mg/dl Normal (applies Bilirubin, Se rum [facility] total panel to non-numeric Total Health System [Mass/volume] - Serum results) or Plasma DirectBilirubin 0.1 mg/dl Normal (applies Direct Bilirubin [facility] to non-numeric [facility] System results) Aspartate 9 {IU/L} Normal (applies Aspartate [facility] aminotransferase to non-numeric Transaminase, [facility] System [Enzymatic results) Serum activity/volume] in Serum or Plasma by With P-5'-P Albumin [Mass/volume] 3.8 {gm/dl} Below low normal Albumin, Serum [facility] in Serum or Plasma Health Syst em I.Phosphorus 3.7 mg/dl Normal (applies I. Phosphorus [facility] to non-numeric Health System results) Alanine 13 {IU/L} Normal (applies Alanine [facility] aminotransferase to non-numeric Aminotransferase [facility] [Enzymatic results) , Serum activity/volume] in Serum or Plasma Calcium [Mass/volume] 9.7 mg/dl Normal (applies Calcium, Tot al [facility] in Serum or Plasma to non-numeric Serum Health System results) A/GRatio 1.65 Normal (applies A/G Ratio [facility] to non-numeric Health System results) Urate [Mass/volume] in 6.3 mg/dl Normal (applies Uric Acid, Serum [facility] Serum or Plasma to non-numeric Health Sy stem results) Anion gap in Serum or 9.00 mmol/L Normal (applies Anion Gap [facility] Plasma to non-numeric Health System results) Glomerular filtration 65.31 Normal (applies GFR [facility] rate/1.73 sq to non-numeric Health Syste m M.predicted [Volume results) Rate/Area] in Serum or Plasma by Creatinine-based formula (CKD-EPI) eGFR will provide clinicians with a more accurate indicator of renal function then the serum creatinine. The eGFR is automa tically calculated from an empiric formula (endorsed by the [employer] ion) which incorporates age, sex, and race.Clinicians may notice surprisingly low GFR's with serum creatinine valueswithin normal range- particularly in elderly wo men (with low muscle mass).In the hospital setting, the eGFR should add an element of safety in drug dosing, in assessing the risk of IV contrast administration, and in assessing vascular risk.The NKF staging system is as follows:Normal: eGFR >90 with no kidney markersStage 1: eGFR >90 with kidney markers*Stage 2: eGFR 60- 89Stage 3: eGFR 30-59Stage 4: eGFR 15-29Stage 5: eGFR <15 (usually requir ing dialysis)*Markers include: Proteinuria, Hematuria, abnormal imaging-studies, or other blood or urine test abnormalities ID Date Data Source [id number] 02/27/2019 03:52:48 PM EST [facility] System Name Value Range Interpretation Code Description Data Nany rce(s) Supporting Document(s ) [id number] 250.59 Normal (applies to CeS3ICj [facility] non-numeric results) Health Sy stem tHbWB 3905.78 Normal (applies to tHbWB [facility] non-numeric results) Health Sy stem %HbA1C 8.02 % Above high normal %HbA1C [facility] ID Date Data Source [id number] 02/27/2019 03:52:48 PM EST [facility] System Name Value Range Interpretation Description Data Sup porting Code Source(s) Document(s ) Phenobarbital 31.6 Normal (applies Phenobarbital [facility] [Mass/volume] in ug/ml to non-numeric Level, Serum Healt h Serum or Plasma results) System ID Date Data Source [id number] 02/27/2019 03:52:48 PM EST [facility] Name Value Range Interpretation Description Data Sup porting Code Source(s) Document(s ) Phenytoin 33.9 Above upper panic Phenytoin [facility] [Mass/volume] ug/ml limits Level, Serum Health System in Serum or Plasma Result Reporting|Telephone|Alexi Coy| 02/26/2019 at 12:19 PMCalled to:Alexandra Coy Name:KalamReadback by:Alexi Coy 02/26/2019 / 12:19 PM ID Date Data Source [id number] 02/27/2019 03:52:48 PM EST [facility] Name Value Range Interpretation Description Data Sup porting Code Source(s) Document(s ) Leukocytes 6.7 Normal (applies WBC Count [facility] [#/volume] in {10^3_uL to non-numeric Health Unspecified } results) System specimen by Automated count Erythrocytes 5.12 Normal (applies RBC Count [facility] [#/volume] in {10^6_uL to non-numeric Health Blood by } results) System Automated count Hemoglobin 14.8 Normal (applies Hemoglobin [facility] [Mass/volume] in {gm/dL} to non-numeric Health Blood results) System Hematocrit 46.0 % Normal (applies Hematocrit [facility] [Volume to non-numeric Health Fraction] of results) System Blood Erythrocyte mean 89.8 fl Normal (applies MCV [facility] corpuscular to non-numeric Health volume [Entitic results) System volume] by Automated count Erythrocyte mean 28.9 pg Normal (applies MCH [facility] corpuscular to non-numeric Health hemoglobin results) System [Entitic mass] by Automated count Erythrocyte mean 32.2 Below low normal MCHC [facility] corpuscular {gm/dL} Health hemoglobin System concentration [Mass/volume] by Automated count Erythrocyte 15.3 % Above high RDW-CV [facility] distribution normal Health width [Entitic System volume] by Automated count Platelets 305 Normal (applies Platelet Count [facility] [#/volume] in {10^3_uL to non-numeric Health Plasma by } results) System Automated count Platelet mean 10.9 fl Above high MPV [facility] volume [Entitic normal Health volume] in Blood System by Automated count Monocytes 0.5 Normal (applies Monocyte # [facility] [#/volume] in {10^3_uL to non-numeric Health Blood by Manual } results) System count Eosinophils 0.12 Normal (applies Eosinophil # [facility] [#/volume] in {10^3_uL to non-numeric Health Blood } results) System Neutrophils 3.4 Normal (applies Neutrophil # [facility] [#/volume] in {10^3_uL to non-numeric Health Body fluid } results) System Basophils 0.07 Normal (applies Basophil # [facility] [#/volume] in {10^3_uL to non-numeric Health Blood by } results) System Automated count Lymphocyte 2.7 Normal (applies Lymphocyte # [facility] percent {10^3_uL to non-numeric Health differential } results) System count (procedure) Neutrophils/100 50.3 % Below low normal Neutrophil % [facility] leukocytes in Health Blood by System Automated count Monocytes/100 6.8 % Normal (applies Monocyte % [facility] leukocytes in to non-numeric Health Blood results) System Eosinophils/100 1.8 % Normal (applies Eosinophil % [facility] leukocytes in to non-numeric Health Unspecified results) System specimen Basophils/100 1.0 % Normal (applies Basophil % [facility] leukocytes in to non-numeric Health Unspecified results) System specimen by Manual count Lymphocytes 39.8 % Normal (applies Lymphocyte % [facility] [#/volume] in to non-numeric Health Blood by results) System Automated count ImmatureGranuloc 0.3 % Normal (applies Immature [facility] ytes% to non-numeric Granulocytes % Health results) System Nucleated 0.0 Normal (applies NRBC % [facility] erythrocytes {/100_WB to non-numeric Health [#/volume] in C} results) System Body fluid ImmatureGranuloc 0.02 Normal (applies Immature [facility] ytes# {10^3_uL to non-numeric Granulocytes # Health } results) System NRBC# 0.00 Below low normal NRBC # [facility] {10^3_uL Health } System ID Date Data Source [id number] 02/27/2019 03:52:48 PM EST [facility] Name Value Range Interpretation Description Data Sup porting Code Source(s) Document(s ) Sodium 139 Normal (applies Sodium, Serum [facility] [Moles/volume] in mmol/L to non-numeric Health Serum or Plasma results) System Potassium 5.3 Above high Potassium, [facility] [Mass/volume] in mmol/L normal Serum Health Serum or Plasma System Chloride 103 Normal (applies Chloride, [facility] [Moles/volume] in mmol/L to non-numeric Serum Health Serum or Plasma results) System Carbon dioxide, 26.0 Normal (applies CO2, Serum [facility] total mmol/L to non-numeric Health [Moles/volume] in results) System Serum or Plasma TotalProtein 6.3 Normal (applies Total Protein [facility] mg/dl to non-numeric Health results) System Glucose 129 Above high Glucose, [facility] [Mass/volume] in mg/dL normal Serum Health Serum or Plasma System Urea nitrogen 8 mg/dl Normal (applies Blood Urea [facility] [Mass/volume] in to non-numeric Nitrogen, Health Serum or Plasma results) Serum System Creatinine 0.80 Normal (applies Creatinine, [facility] [Mass/volume] in mg/dl to non-numeric Serum Health Serum or Plasma results) System Alkaline 111 Normal (applies Alkaline [facility] phosphatase {IU/L} to non-numeric Phosphatase, Health isoenzymes results) Serum System [Enzymatic activity/volume] in Serum or Plasma by Heat stability Bilirubin.total 0.1 Below low normal Bilirubin, [facility] [Mass/volume] in mg/dl Serum Total Health Serum or Plasma System DirectBilirubin 0.1 Normal (applies Direct [facility] mg/dl to non-numeric Bilirubin Health results) System Aspartate 12 Normal (applies Aspartate [facility] aminotransferase {IU/L} to non-numeric Transaminase, Heal th [Enzymatic results) Serum System activity/volume] in Serum or Plasma by With P-5'-P Albumin 3.8 Below low normal Albumin, [facility] [Mass/volume] in {gm/dl} Serum Health Serum or Plasma System I.Phosphorus 4.2 Normal (applies I. Phosphorus [facility] mg/dl to non-numeric Health results) System Alanine 15 Normal (applies Alanine [facility] aminotransferase {IU/L} to non-numeric Aminotransfer Heal th [Enzymatic results) ase, Serum System activity/volume] in Serum or Plasma Calcium 10.1 Normal (applies Calcium, [facility] [Mass/volume] in mg/dl to non-numeric Total Serum Health Serum or Plasma results) System A/GRatio 1.52 Normal (applies A/G Ratio [facility] to non-numeric Health results) System Urate 5.5 Normal (applies Uric Acid, [facility] [Mass/volume] in mg/dl to non-numeric Serum Health Serum or Plasma results) System Anion gap in Serum 10.00 Normal (applies Anion Gap [facility] or Plasma mmol/L to non-numeric Health results) System Glomerular 74.82 Normal (applies GFR [facility] filtration to non-numeric Health rate/1.73 sq results) System M.predicted [Volume Rate/Area] in Serum or Plasma by Creatinine-based formula (CKD-EPI) eGFR will provide clinicians with a more accurate indicator of renal function then the serum creatinine. The eGFR is automa tically calculated from an empiric formula (endorsed by the National [employer] ion) which incorporates age, sex, and race.Clinicians may notice surprisingly low GFR's with serum creatinine valueswithin normal range- particularly in elderly wo men (with low muscle mass).In the hospital setting, the eGFR should add an element of safety in drug dosing, in assessing the risk of IV contrast administration, and in assessing vascular risk.The NKF staging system is as follows:Normal: eGFR >90 with no kidney markersStage 1: eGFR >90 with kidney markers*Stage 2: eGFR 60- 89Stage 3: eGFR 30-59Stage 4: eGFR 15-29Stage 5: eGFR <15 (usually requir ing dialysis)*Markers include: Proteinuria, Hematuria, abnormal imaging-studies, or other blood or urine test abnormalities ID Date Data Source [id number] 02/27/2019 03:52:48 PM EST [facility] Name Value Range Interpretation Description Data Sup porting Code Source(s) Document(s ) Sodium 136 Below low normal Sodium, Serum [facility] [Moles/volume mmol/L Health System ] in Serum or Plasma Potassium 4.2 Normal (applies Potassium, [facility] [Mass/volume] mmol/L to non-numeric Serum Health Syst em in Serum or results) Plasma Chloride 102 Normal (applies Chloride, [facility] [Moles/volume mmol/L to non-numeric Serum Health Syst em ] in Serum or results) Plasma Carbon 24.0 Normal (applies CO2, Serum [facility] dioxide, mmol/L to non-numeric Health System total results) [Moles/volume ] in Serum or Plasma Glucose 106 Above high normal Glucose, Serum [facility] [Mass/volume] mg/dL Health System in Serum or Plasma Urea nitrogen 8 mg/dl Normal (applies Blood Urea [facility] [Mass/volume] to non-numeric Nitrogen, Health Syst em in Serum or results) Serum Plasma Creatinine 0.70 Normal (applies Creatinine, [facility] [Mass/volume] mg/dl to non-numeric Serum Health Syst em in Serum or results) Plasma Calcium 9.9 Normal (applies Calcium, Total [facility] [Mass/volume] mg/dl to non-numeric Serum Health Syst em in Serum or results) Plasma Anion gap in 10.00 Normal (applies Anion Gap [facility] Serum or mmol/L to non-numeric Health System Plasma results) ID Date Data Source [id number] 09/05/2011 09:50:00 PM EDT [facility] Name Value Range Interpretation Description Data Sup porting Code Source(s) Document(s ) Color Yellow Normal (applies Color [facility] to non-numeric Health results) System Appearance of CLEAR Normal (applies Urine [facility] Urine to non-numeric Appearance Health results) System Specific gravity 1.015 Normal (applies Urine Specific [facility] of Urine to non-numeric [place] [facility] results) System pH.. 7.0 Normal (applies pH.. [facility] {pH_units} to non-numeric Health results) System Glucose,UA NEG Abnormal Glucose, UA [facility] (applies to Health non-numeric System results) Protein 30 mg/dl Normal (applies Protein [facility] [Mass/volume] in to non-numeric Health Serum or Plasma results) System BilirubinUrine NEG Abnormal Bilirubin [facility] (applies to Urine Health non-numeric System results) Urobilinogen Normal (applies Urobilinogen [facility] [Mass/volume] in to non-numeric UA Health Urine results) System Ketones NEG Abnormal Ketones UA [facility] [Mass/volume] in (applies to Health Urine non-numeric System results) Nitrate+Nitrite Negative Normal (applies Nitrite [facility] [Mass/volume] in to non-numeric Health Unspecified results) System specimen Leukocyte Moderate Abnormal Leukocyte [facility] esterase (applies to Esterase Health [Units/volume] non-numeric Concentration System in Urine results) Leukocytes 24 {/HPF} Normal (applies White Blood [facility] [#/volume] in to non-numeric Cells Health Unspecified results) System specimen by Automated count RedBloodCells 1091 Abnormal Red Blood [facility] {/HPF} (applies to Cells Health non-numeric System results) Mucus RARE Normal (applies Mucus [facility] to non-numeric Health results) System UrineBlood LG(3+) Normal (applies Urine Blood [facility] to non-numeric Health results) System Non-SquamousEpit Normal (applies Non-Squamous [facility] helial to non-numeric Epithelial Health results) System ID Date Data Source [id number] 09/05/2011 09:50:00 PM EDT [facility] Name Value Range Interpretation Description Data Sup porting Code Source(s) Document(s ) Leukocytes 8.9 Normal (applies WBC Count [facility] [#/volume] in {10\\S\\3_ to non-numeric Health Unspecified uL} results) System specimen by Automated count Erythrocytes 4.97 Normal (applies RBC Count [facility] [#/volume] in {10\\S\\6_ to non-numeric Health Blood by uL} results) System Automated count Hemoglobin 12.6 Normal (applies Hemoglobin, [facility] [Mass/volume] in {gm/dL} to non-numeric Whole Blood Health Blood results) System Hematocrit 39.0 % Normal (applies Hematocrit, [facility] [Volume to non-numeric Whole Blood Health Fraction] of results) System Blood Erythrocyte mean 78.6 fl Below low normal MCV [facility] corpuscular Health volume [Entitic System volume] by Automated count Erythrocyte mean 25.3 pg Below low normal MCH [facility] corpuscular Health hemoglobin System [Entitic mass] by Automated count Erythrocyte mean 32.2 Below low normal MCHC [facility] corpuscular {gm/dL} Health hemoglobin System concentration [Mass/volume] by Automated count Erythrocyte 20.7 % Above high normal RDW [facility] distribution Health width [Entitic System volume] by Automated count Platelets 395 Normal (applies Platelet [facility] [#/volume] in {10\\S\\3_ to non-numeric Count Health Plasma by uL} results) System Automated count Platelet mean 8.9 fl Normal (applies MPV [facility] volume [Entitic to non-numeric Health volume] in Blood results) System by Automated count ID Date Data Source [id number] 09/05/2011 09:50:00 PM EDT [facility] System Name Value Range Interpretation Description Data Sup porting Code Source(s) Document(s ) Sodium 141 Normal (applies Sodium, Serum [facility] [Moles/volume] in mmol/L to non-numeric Health Serum or Plasma results) System Potassium 3.9 Normal (applies Potassium, [facility] [Mass/volume] in mmol/L to non-numeric Serum Health Serum or Plasma results) System Chloride 103 Normal (applies Chloride, [facility] [Moles/volume] in mmol/L to non-numeric Serum Health Serum or Plasma results) System Carbon dioxide, 28.6 Normal (applies CO2, Serum [facility] total mmol/L to non-numeric Health [Moles/volume] in results) System Serum or Plasma TotalProtein 6.5 Normal (applies Total Protein [facility] mg/dl to non-numeric Health results) System Glucose 86 Normal (applies Glucose, [facility] [Mass/volume] in mg/dL to non-numeric Serum Health Serum or Plasma results) System Urea nitrogen 5 mg/dl Below low normal Blood Urea [facility] [Mass/volume] in Nitrogen, Health Serum or Plasma Serum System Creatinine 0.88 Normal (applies Creatinine, [facility] [Mass/volume] in mg/dl to non-numeric Serum Health Serum or Plasma results) System Alkaline 76 Normal (applies Alkaline [facility] phosphatase {IU/L} to non-numeric Phosphatase, Health isoenzymes results) Serum System [Enzymatic activity/volume] in Serum or Plasma by Heat stability Bilirubin.total 0.4 Normal (applies Bilirubin, [facility] [Mass/volume] in mg/dl to non-numeric Serum Total Health Serum or Plasma results) System Aspartate 15 Normal (applies Aspartate [facility] aminotransferase {IU/L} to non-numeric Transaminase, Heal th [Enzymatic results) Serum System activity/volume] in Serum or Plasma by With P-5'-P Albumin 3.7 Normal (applies Albumin, [facility] [Mass/volume] in {gm/dl} to non-numeric Serum Health Serum or Plasma results) System I.Phosphorus 4.3 Normal (applies I. Phosphorus [facility] mg/dl to non-numeric Health results) System Alanine 16 Normal (applies Alanine [facility] aminotransferase {IU/L} to non-numeric Aminotransfer Heal th [Enzymatic results) ase, Serum System activity/volume] in Serum or Plasma Calcium 10.2 Normal (applies Calcium, [facility] [Mass/volume] in mg/dl to non-numeric Total Serum Health Serum or Plasma results) System A/GRatio 1.32 Normal (applies A/G Ratio [facility] to non-numeric Health results) System Urate 5.4 Normal (applies Uric Acid, [facility] [Mass/volume] in mg/dl to non-numeric Serum Health Serum or Plasma results) System Anion gap in Serum 9.40 Normal (applies Anion Gap [facility] or Plasma mmol/L to non-numeric Health results) System Glomerular Normal (applies GFR [facility] filtration to non-numeric Health rate/1.73 sq results) System M.predicted [Volume Rate/Area] in Serum or Plasma by Creatinine-based formula (CKD-EPI) ID Date Data Source [id number] 09/06/2011 04:49:00 PM EDT [facility] [facility] System Name Value Range Interpretation Description Data Sup porting Code Source(s) Document(s ) Phenothiazines Normal (applies Phenothiazines [facility] [Mass/volume] in to non-numeric , Serum Health Serum or Plasma results) System ID Date Data Source [id number] 09/06/2011 05:39:00 PM EDT [facility] System Name Value Range Interpretation Description Data Sup porting Code Source(s) Document(s ) Phenobarbital 42.1 Above high PHENobarbital [facility] [Mass/volume] in ug/ml normal Level, Serum Health Serum or Plasma System ID Date Data Source [id number] 09/14/2011 11:30:00 AM EDT [facility] System Name Value Range Interpretation Description Data Sup porting Code Source(s) Document(s ) Sodium 138 Normal (applies Sodium, Serum [facility] [Moles/volume] in mmol/L to non-numeric Health Serum or Plasma results) System Potassium 3.9 Normal (applies Potassium, [facility] [Mass/volume] in mmol/L to non-numeric Serum Health Serum or Plasma results) System Chloride 105 Normal (applies Chloride, [facility] [Moles/volume] in mmol/L to non-numeric Serum Health Serum or Plasma results) System Carbon dioxide, 19.2 Below low normal CO2, Serum [facility] total mmol/L [facility] [Moles/volume] in System Serum or Plasma TotalProtein 6.6 Normal (applies Total Protein [facility] mg/dl to non-numeric Health results) System Glucose 147 Above high Glucose, [facility] [Mass/volume] in mg/dL normal Serum Health Serum or Plasma System Urea nitrogen 8 mg/dl Normal (applies Blood Urea [facility] [Mass/volume] in to non-numeric Nitrogen, Health Serum or Plasma results) Serum System Creatinine 1.00 Normal (applies Creatinine, [facility] [Mass/volume] in mg/dl to non-numeric Serum Health Serum or Plasma results) System Alkaline 76 Normal (applies Alkaline [facility] phosphatase {IU/L} to non-numeric Phosphatase, Health isoenzymes results) Serum System [Enzymatic activity/volume] in Serum or Plasma by Heat stability Bilirubin direct 0.6 Normal (applies Bilirubin, [facility] and total panel mg/dl to non-numeric Serum Total Health [Mass/volume] - results) System Serum or Plasma Aspartate 30 Normal (applies Aspartate [facility] aminotransferase {IU/L} to non-numeric Transaminase, Heal th [Enzymatic results) Serum System activity/volume] in Serum or Plasma by With P-5'-P Albumin 3.8 Normal (applies Albumin, [facility] [Mass/volume] in {gm/dl} to non-numeric Serum Health Serum or Plasma results) System I.Phosphorus 4.3 Normal (applies I. Phosphorus [facility] mg/dl to non-numeric Health results) System Alanine 16 Normal (applies Alanine [facility] aminotransferase {IU/L} to non-numeric Aminotransfer Heal th [Enzymatic results) ase, Serum System activity/volume] in Serum or Plasma Calcium 10.0 Normal (applies Calcium, [facility] [Mass/volume] in mg/dl to non-numeric Total Serum Health Serum or Plasma results) System A/GRatio 1.36 Normal (applies A/G Ratio [facility] to non-numeric Health results) System Urate 5.8 Normal (applies Uric Acid, [facility] [Mass/volume] in mg/dl to non-numeric Serum Health Serum or Plasma results) System Anion gap in Serum 13.80 Normal (applies Anion Gap Jono savi or Plasma mmol/L to non-numeric Health results) System Glomerular 59.61 Normal (applies GFR [facility] filtration to non-numeric Health rate/1.73 sq results) System M.predicted [Volume Rate/Area] in Serum or Plasma by Creatinine-based formula (CKD-EPI) ID Date Data Source [id number] 09/14/2011 11:30:00 AM EDT [facility] Name Value Range Interpretation Description Data Sup porting Code Source(s) Document(s ) Phenobarbital 18.6 Normal (applies PHENobarbital [facility] [Mass/volume] in ug/ml to non-numeric Level, Serum Healt h Serum or Plasma results) System ID Date Data Source [id number] 02/22/2019 01:37:00 PM [facility] EXAM: CHEST XRay 02/22/2019HISTORY : Visi t reason: Evalutation after ng tube placement. Check the position of the tip . ;TECHNIQUE: Single AP. Comp: 02/02/19FINDINGS: Nasogastric tube is s een with distaltip in left upper quadrant.The cardiac silhouette, mediastinal contour, and pulmonary vascularity are withinnormal limits. No parenchymal infiltrate, pneu mothorax, or pleural effusion is seen. The visualizedbony structures demonstrate no significant abnormality.IMPRESSION: No focal parenchymal infiltrate is seen. Name Value Range Interpretation Code Description Data Nany rce(s) Supporting Document(s ) ID Date Data Source [id number] 02/22/2019 08:38:00 AM [facility] PROCEDURE INFORMATION: Exam: MR Head Wit hout Contrast Exam date and time: 02/22/2019 10:34 AM Age: 53 years old Clinical evelyn cation: Visit reason: CVA; TECHNIQUE: Imaging protocol: MR of the head withoutcontrast . COMPARISON: MR angiography^Head 02/22/2019 9:47 AM FINDINGS: Brain: No acuteintrace rebral abnormality or injury. No acute infarct or intracerebral bleed. Moderate patchy periventricularleukomalacia in both cerebral hemispheres. In this relatively young patient, these findings probably representaccelerated or premature athero sclerotic small vessel ischemic disease if there is any patient history ofdiabetes or hypertension, however the differential diagnoses include deep white m atter injury, priortrauma, migraine-related deep white matter disease, demyelinating disease (including MS and ADEM),inflammatory infectious conditions such as Lyme disea se and vasculitis (connective tissue disease or druguse-related). If these are previo usly unknown findings and/or if there is no patient history of diabetes orhypertensi on, I would recommend neurology consult and CSF evaluation for further initial alfredo p, if thoughtclinically indicated. The vestibulocochlear complexes bilaterally are normal. The position, size andshape of the cerebellar tonsils are normal.Ventri cles: Normal.Bones/joints: Unremarkable. Soft tissues:Unremarkable. Sinuses: Minimal m ucosal thickening of the bilateral maxillary, ethmoid and sphenoid sinuses ispresent. Mastoid air cells: Normal as visualized. No mastoid effusion. Orbits: Unremarkable.I MPRESSION: 1. No acute infarct or intracerebral bleed. 2. Moderate patchyp eriventricular leukomalacia in both cerebral hemispheres. In this relatively young pa tient, these findingsprobably represent accelerated or premature atherosclerotic small vessel ischemic disease if there is anypatient history of diabetes or hypert ension, however if such a history is absent the differential diagnoseswould include deep white matter injury, prior trauma, migraine-related deep white farooq er disease,demyelinating disease (including MS and ADEM), inflammatory infectious co nditions such as Lyme disease andvasculitis (connective tissue disease or drug use-r elated). If these are previously unknown findings and/or ifthere is no patient hi story of diabetes or hypertension, I would recommend neurology consult and CSFevalu ation for further initial workup, if thought clinically indicated. 3. Minimal mucosal thickening ofthe bilateral maxillary, ethmoid and sphenoid sinuses is present. Name Value Range Interpretation Code Description Data Nany rce(s) Supporting Document(s ) ID Date Data Source [id number] 02/22/2019 08:40:00 AM [facility] PROCEDURE INFORMATION: Exam: MR Angiogra m Head Without Contrast, Arteries Exam date and time: 02/22/2019 10:34 AM Age: 53 year s old Clinical indication: Visit reason: Stroke; TECHNIQUE: Imaging protocol: MRa ngiogram head without contrast. Exam focused on the arteries. COMPARISON: CR Chest Si ngle AP view02/22/2019 2:22 AM FINDINGS: Right internal carotid artery: Unremarkable. I ntracranial segment ispatent with no significant stenosis. No aneurysm. Right anterior cerebral artery: Unremarkable. No occlusionor significant stenosis. No ane urysm. Right middle cerebral artery: Unremarkable. No occlusion orsignificant stenosis. No aneurysm. Right posterior cerebral artery: Unremarkable. No occlus ion orsignificant stenosis. No aneurysm. Right vertebral artery: There is signifi cant, 50-69% diameter stenosisof the distal right vertebral artery, best seen on laly ge 6 of series 7 and image 18 of series 8. No aneurysm.Left internal carotid artery: T here is a questionable MR artifact versus true 50-69% diameter stenosis ofthe left ICA in the foramen lacerum region, seen on images 6 through 9 of series 9 and image s 19 through 24 ofseries 3. The distal intracranial segment is patent with no s ignificant stenosis. No aneurysm. Left anteriorcerebral artery: Unremarkable. N o occlusion or significant stenosis. No aneurysm. Left middle cerebral artery:Un remarkable. No occlusion or significant stenosis. No aneurysm. Left posterior ce rebral artery: Unremarkable.No occlusion or significant stenosis. No aneurysm. Left vertebral artery: Unremarkable. No occlusion orsignificant stenosis. No aneurysm. Bas ilar artery: Unremarkable. No occlusion or significant stenosis. Noaneurysm. IMPRES BEBETO: 1. There is a questionable MR artifact versus true 50-69% diameterstenosis of t he left ICA in the foramen lacerum region, seen on images 6 through 9 of series 9 a nd images 19through 24 of series 3.2. There is significant, 50-69% diameter stenosis of the distal right vertebralartery, best seen on image 6 of series 7 and image 18 of series 8. Name Value Range Interpretation Code Description Data [facility](s) Supporting Document(s ) ID Date Data Source [id number] 02/22/2019 01:56:00 AM [facility] PROCEDURE INFORMATION: Exam: CT Head Wit hout Contrast Exam date and time: 02/22/2019 2:06 AM Age: 53 years old Clinical indic ation: Visit reason: Stroke; TECHNIQUE: Imaging protocol: Computed tomography of the head without contrast. Other technique: STROKE PROTOCOL was implemented. COMPARI SON: CT Headwithout Contrast 02/03/2019 5:39 PM FINDINGS: Brain: Periventricular hypo attenuation favored to berelated to chronic small vessel ischemic changes. Ventricle s: Ventricles are concordant with sulci.Bones/joints: No acute fracture. Sinuses: Visualized sinuses no fluid levels. Mastoid air cells:Visualized mastoid air cells are well aerated. Soft tissues: Unremarkable. IMPRESSION: Nosuspicious changes compared to 02-03-2019, no abnormality suspicious for acute stroke by noncontrast head CT. Ifthere is clinical suspicion for stroke, please note that o ther modalities are considered to be more sensitivethan axial plane noncontrast he ad CT.ASSESSMENT: ASPECTS ([place] Stroke Program Early CT Score) is 10 Name Value Range Interpretation Code Description Data Nany rce(s) Supporting Document(s ) ID Date Data Source [id number] 02/22/2019 01:56:00 AM EST [facility] PROCEDURE INFORMATION: Exam: CT Head Wit hout Contrast Exam date and time: 02/22/2019 2:06 AM Age: 53 years old Clinical indic ation: Visit reason: Stroke; TECHNIQUE: Imaging protocol: Computed tomography of the head without contrast. Other technique: STROKE PROTOCOL was implemented. COMPARI SON: CT Headwithout Contrast 02/03/2019 5:39 PM FINDINGS: Brain: Periventricular hypo attenuation favored to berelated to chronic small vessel ischemic changes. Ventricle s: Ventricles are concordant with sulci.Bones/joints: No acute fracture. Sinuses: Visualized sinuses no fluid levels. Mastoid air cells:Visualized mastoid air cells are well aerated. Soft tissues: Unremarkable. IMPRESSION: Nosuspicious changes compared to 02-03-2019, no abnormality suspicious for acute stroke by noncontrast head CT. Ifthere is clinical suspicion for stroke, please note that o ther modalities are considered to be more sensitivethan axial plane noncontrast he ad CT.ASSESSMENT: ASPECTS ([place] Stroke Program Early CT Score) is 10 Name Value Range Interpretation Code Description Data Nany rce(s) Supporting Document(s ) ID Date Data Source [id number] 02/04/2019 04:16:09 PM EST [facility] Name Value Range Interpretation Description Data Sup porting Code Source(s) Document(s ) Erythrocytes 4.58 Normal (applies RBC Count [facility] [#/volume] in {10\\S\\6_ to non-numeric Health Blood by uL} results) System Automated count Hemoglobin 10.4 Below low normal Hemoglobin, [facility] [Mass/volume] in {gm/dL} Whole Blood Health Blood System Leukocytes 8.3 Normal (applies WBC Count [facility] [#/volume] in {10\\S\\3_ to non-numeric Health Unspecified uL} results) System specimen by Automated count Erythrocyte mean 22.7 pg Below low normal MCH [facility] corpuscular Health hemoglobin System [Entitic mass] by Automated count Erythrocyte 17.3 % Above high normal RDW [facility] distribution Health width [Entitic System volume] by Automated count Erythrocyte mean 30.7 Below low normal [facility] corpuscular {gm/dL} Health hemoglobin System concentration [Mass/volume] by Automated count Hematocrit 33.9 % Below low normal Hematocrit, [facility] [Volume Whole Blood Health Fraction] of System Blood Erythrocyte mean 74.0 fl Below low normal MCV [facility] corpuscular Health volume [Entitic System volume] by Automated count Platelets 538 Above high normal Platelet [facility] [#/volume] in {10\\S\\3_ Count Health Plasma by uL} System Automated count Platelet mean 9.5 fl Normal (applies MPV [facility] volume [Entitic to non-numeric Health volume] in Blood results) System by Automated count ID Date Data Source [id number] 02/04/2019 04:16:09 PM EST [facility] Name Value Range Interpretation Description Data Sup porting Code Source(s) Document(s ) Sodium 137 Normal (applies Sodium, Serum [facility] [Moles/volume mmol/L to non-numeric Health Syst em ] in Serum or results) Plasma Potassium 4.4 Normal (applies Potassium, [facility] [Mass/volume] mmol/L to non-numeric Serum Health Syst em in Serum or results) Plasma Glucose 97 mg/dL Normal (applies Glucose, Serum [facility] [Mass/volume] to non-numeric Health Syst em in Serum or results) Plasma Chloride 105 Normal (applies Chloride, [facility] [Moles/volume mmol/L to non-numeric Serum Health Syst em ] in Serum or results) Plasma Urea nitrogen 8 mg/dl Normal (applies Blood Urea [facility] [Mass/volume] to non-numeric Nitrogen, Health Syst em in Serum or results) Serum Plasma Carbon 22.0 Normal (applies CO2, Serum [facility] dioxide, mmol/L to non-numeric Health System total results) [Moles/volume ] in Serum or Plasma Calcium 9.0 Normal (applies Calcium, Total [facility] [Mass/volume] mg/dl to non-numeric Serum Health Syst em in Serum or results) Plasma Creatinine 0.80 Normal (applies Creatinine, [facility] [Mass/volume] mg/dl to non-numeric Serum Health Syst em in Serum or results) Plasma Anion gap in 10.00 Normal (applies Anion Gap [facility] Serum or mmol/L to non-numeric Health System Plasma results) ID Date Data Source [id number] 02/04/2019 04:16:09 PM EST [facility] Name Value Range Interpretation Description Data Sup porting Code Source(s) Document(s ) Erythrocytes 4.34 Normal (applies RBC Count [facility] [#/volume] in {10\\S\\6_ to non-numeric Health Blood by uL} results) System Automated count Leukocytes 8.2 Normal (applies WBC Count [facility] [#/volume] in {10\\S\\3_ to non-numeric Health Unspecified uL} results) System specimen by Automated count Hemoglobin 10.2 Below low normal Hemoglobin, [facility] [Mass/volume] in {gm/dL} Whole Blood Health Blood System Erythrocyte mean 31.9 Below low normal [facility] corpuscular {gm/dL} Health hemoglobin System concentration [Mass/volume] by Automated count Erythrocyte mean 23.5 pg Below low normal MCH [facility] corpuscular Health hemoglobin System [Entitic mass] by Automated count Hematocrit 32.0 % Below low normal Hematocrit, [facility] [Volume Whole Blood Health Fraction] of System Blood Erythrocyte mean 73.7 fl Below low normal MCV [facility] corpuscular Health volume [Entitic System volume] by Automated count Platelet mean 9.2 fl Normal (applies MPV [facility] volume [Entitic to non-numeric Health volume] in Blood results) System by Automated count Erythrocyte 17.0 % Above high normal RDW [facility] distribution Health width [Entitic System volume] by Automated count Platelets 497 Above high normal Platelet [facility] [#/volume] in {10\\S\\3_ Count Health Plasma by uL} System Automated count ID Date Data Source [id number] 02/04/2019 04:16:09 PM EST [facility] Name Value Range Interpretation Description Data Sup porting Code Source(s) Document(s ) Potassium 4.2 Normal (applies Potassium, [facility] [Mass/volume] mmol/L to non-numeric Serum Health Syst em in Serum or results) Plasma Chloride 103 Normal (applies Chloride, [facility] [Moles/volume mmol/L to non-numeric Serum Health Syst em ] in Serum or results) Plasma Carbon 24.0 Normal (applies CO2, Serum [facility] dioxide, mmol/L to non-numeric Health System total results) [Moles/volume ] in Serum or Plasma Sodium 136 Below low normal Sodium, Serum [facility] [Moles/volume mmol/L Health System ] in Serum or Plasma Creatinine 0.80 Normal (applies Creatinine, [facility] [Mass/volume] mg/dl to non-numeric Serum Health Syst em in Serum or results) Plasma Urea nitrogen 4 mg/dl Below low normal Blood Urea [facility] [Mass/volume] Nitrogen, Health System in Serum or Serum Plasma Glucose 113 Above high normal Glucose, Serum [facility] [Mass/volume] mg/dL Health System in Serum or Plasma results o.k Anion gap in 9.00 mmol/L Normal (applies to Anion Gap Health system Serum or Plasma non-numeric results) Sys tem Calcium 9.4 mg/dl Normal (applies to Calcium, Total [facility] [Mass/volume] in non-numeric results) Serum Sy stem Serum or Plasma ID Date Data Source [id number] 02/04/2019 04:16:09 PM EST [facility] Name Value Range Interpretation Description Data Sup porting Code Source(s) Document(s ) Hemoglobin 10.1 Below low normal Hemoglobin, [facility] [Mass/volume] in {gm/dL} Whole Blood [facility] Blood System Erythrocytes 4.38 Normal (applies RBC Count [facility] [#/volume] in {10\\S\\6_ to non-numeric Health Blood by uL} results) System Automated count Leukocytes 8.2 Normal (applies WBC Count [facility] [#/volume] in {10\\S\\3_ to non-numeric Health Unspecified uL} results) System specimen by Automated count Hematocrit 35.3 % Below low normal Hematocrit, [facility] [Volume Whole Blood Health Fraction] of System Blood Erythrocyte mean 23.1 pg Below low normal M[facility] corpuscular [facility] hemoglobin System [Entitic mass] by Automated count Erythrocyte mean 80.6 fl Normal (applies MCV [facility] corpuscular to non-numeric Health volume [Entitic results) System volume] by Automated count Platelet mean 10.5 fl Above high normal MPV [facility] volume [Entitic Health volume] in Blood System by Automated count Platelets 553 Above high normal Platelet [facility] [#/volume] in {10\\S\\3_ Count Health Plasma by uL} System Automated count Erythrocyte mean 28.6 Below low normal [facility] corpuscular {gm/dL} Health hemoglobin System concentration [Mass/volume] by Automated count Erythrocyte 17.9 % Above high normal RDW [facility] distribution Health width [Entitic System volume] by Automated count Monocytes 0.5 Normal (applies Monocyte [facility] [#/volume] in {10\\S\\3_ to non-numeric Count Health Blood by Manual uL} results) System count Eosinophils 0.1 Normal (applies Eosinophil [facility] [#/volume] in {10\\S\\3} to non-numeric Count Blood Health Blood results) System Basophils 0.04 Normal (applies Basophil [facility] [#/volume] in {10\\S\\3_ to non-numeric Count Health Blood by uL} results) System Automated count Lymphocyte 1.5 Normal (applies Lymphocyte [facility] percent {10\\S\\3_ to non-numeric Absolute Health differential uL} results) System count (procedure) Neutrophils/100 72.8 % Normal (applies Neutrophil % Jono saiv leukocytes in to non-numeric Health Blood by results) System Automated count Monocytes/100 7 % Normal (applies Monocyte % [facility] leukocytes in to non-numeric Health Blood results) System Neutrophils 6.0 Normal (applies Absolute [facility] [#/volume] in {10\\S\\3_ to non-numeric Neutrophil Health Body fluid uL} results) Count System Basophils/100 1 % Normal (applies Basophil % [facility] leukocytes in to non-numeric Health Unspecified results) System specimen by Manual count Lymphocytes 19 % Below low normal Lymphocyte % [facility] [#/volume] in Health Blood by System Automated count Eosinophils/100 2 % Normal (applies Eosinophil % Jono savi leukocytes in to non-numeric Health Unspecified results) System specimen ID Date Data Source [id number] 02/04/2019 04:16:09 PM EST [facility] Name Value Range Interpretation Description Data Sup porting Code Source(s) Document(s ) Levetiracetam 8.90 Normal (applies LevETIRAcetam [facility] [Mass/volume] in to non-numeric Level, Serum Healt h Serum or Plasma results) System ID Date Data Source [id number] 02/04/2019 04:16:09 PM EST [facility] Name Value Range Interpretation Description Data Sup porting Code Source(s) Document(s ) Phenobarbital 6.9 Below low normal PHENobarbital [facility]i [Mass/volume] in ug/ml Level, Serum Health Serum or Plasma System ID Date Data Source [id number] 02/04/2019 04:16:09 PM EST [facility] Name Value Range Interpretation Description Data Sup porting Code Source(s) Document(s ) Color YELLOW Normal (applies Color [facility] to non-numeric Health results) System Appearance of CLEAR Normal (applies Urine [facility] Urine to non-numeric Appearance Health results) System Specific Greater Normal (applies Urine [facility] gravity of than =1.030 to non-numeric Specific Health Urine results) [place] System Glucose,UA NEGATIVE Normal (applies Glucose, UA [facility] to non-numeric Health results) System Negative pH.. 5.5 {pH_units} Normal (applies pH.. [facility] to non-numeric Health System results) Protein TRACE Normal (applies Protein [facility] [Mass/volume] in to non-numeric Health S ystem Serum or Plasma results) BilirubinUrine NEGATIVE Normal (applies Bilirubin Urine [facility] to non-numeric Health System results) Urobilinogen 0.20 {eu/dL} Normal (applies Urobilinogen UA [facility] [Mass/volume] in to non-numeric Health S ystem Urine results) Ketones NEGATIVE Normal (applies Ketones UA [facility] [Mass/volume] in to non-numeric Health S ystem Urine results) Negative Nitrate+Nitrite NEGATIVE Normal (applies to Nitrite Jono savi Health [Mass/volume] in non-numeric results) Sy stem Unspecified specimen Negative Leukocyte esterase NEGATIVE Normal (applies Leukocyte Shawna ase [facility] [Units/volume] in to non-numeric Concentration [facility]a [facility] System Urine results) Negative Leukocytes 3-5 Normal (applies to White Blood Cells [facility] [#/volume] in non-numeric System Unspecified specimen results) by Automated count RedBloodCells 20-30 Normal (applies to Red Blood Cells [facility] non-numeric System results) Epithelial cells FEW Normal (applies to Epithelial Krystal ls [facility] [Presence] in non-numeric System Unspecified specimen results) by Wet preparation WBC casts [#/area] NONE Normal (applies to White Blood Cell [facility] in Urine sediment by non-numeric Casts System Microscopy high results) power field RBC casts [#/area] NONE Normal (applies to Red Blood Ce ll [facility] in Urine sediment by non-numeric Casts System Microscopy high results) power field Bacteria [Presence] MODERATE Normal (applies to Bacteria [facility] in Unspecified non-numeric System specimen results) UrineBlood MODERATE Abnormal (applies Urine Blood [facility] to non-numeric System results) ID Date Data Source [id number] 02/04/2019 04:16:09 PM EST [facility] Name Value Range Interpretation Description Data Sup porting Code Source(s) Document(s ) Leukocytes 4.8 Below low normal WBC Count [facility] [#/volume] in {10\\S\\3_ Health System Unspecified uL} specimen by Automated count ok Erythrocytes 4.39 {10\\S\\6_uL} Normal (applies RBC Count [place] [facility] [#/volume] in Blood to non-numeric Healt h System by Automated count results) Hemoglobin 9.8 {gm/dL} Below low normal Hemoglobin, [facility] [Mass/volume] in Whole Blood Health Syst em Blood Hematocrit [Volume 32.0 % Below low normal Hematocrit, [facility] Fraction] of Blood Whole Blood Health Sy stem Erythrocyte mean 72.9 fl Below low normal MCV [facility] corpuscular volume Health Syst em [Entitic volume] by Automated count Erythrocyte mean 22.3 pg Below low normal [facility]CH [facility] corpuscular Health System hemoglobin [Entitic mass] by Automated count Erythrocyte mean 30.6 {gm/dL} Below low normal [facility] corpuscular Health System hemoglobin concentration [Mass/volume] by Automated count Erythrocyte 17.4 % Above high RDW [facility] distribution width normal Health Syst em [Entitic volume] by Automated count Platelets 448 {10\\S\\3_uL} Above high Platelet Count [facility] [#/volume] in normal Health System Plasma by Automated count Platelet mean 9.5 fl Normal (applies MPV [facility] volume [Entitic to non-numeric Health Sy stem volume] in Blood by results) Automated count Monocytes 0.5 {10\\S\\3_uL} Normal (applies Monocyte Count [facility] [#/volume] in Blood to non-numeric Healt h System by Manual count results) Eosinophils 0.2 {10\\S\\3} Normal (applies Eosinophil [facility] [#/volume] in Blood to non-numeric Count Blood Hea lt System results) Neutrophils 2.3 {10\\S\\3_uL} Normal (applies Absolute [facility] [#/volume] in Body to non-numeric Neutrophil Healt h System fluid results) Count Basophils 0.03 {10\\S\\3_uL} Normal (applies Basophil Count [facility] [#/volume] in Blood to non-numeric Healt h System by Automated count results) Lymphocyte percent 1.8 {10\\S\\3_uL} Normal (applies Lymphocyt e [facility] differential count to non-numeric Absolute Health System (procedure) results) Monocytes/100 10 % Above high Monocyte % [facility] leukocytes in Blood normal Health Sys tem Neutrophils/100 48.7 % Normal (applies Neutrophil % Jono savi leukocytes in Blood to non-numeric Healt h System by Automated count results) Eosinophils/100 3 % Above high Eosinophil % [facility] leukocytes in normal Health System Unspecified specimen Basophils/100 1 % Normal (applies Basophil % [facility] leukocytes in to non-numeric Health Syst em Unspecified results) specimen by Manual count Lymphocytes 38 % Normal (applies Lymphocyte % [facility] [#/volume] in Blood to non-numeric Healt h System by Automated count results) ID Date Data Source [id number] 02/04/2019 04:16:09 PM EST [facility] Name Value Range Interpretation Description Data Sup porting Code Source(s) Document(s ) Sodium 136 Below low normal Sodium, Serum [facility] [Moles/volume mmol/L [facility] ] in Serum or Plasma Potassium 4.0 Normal (applies Potassium, [facility] [Mass/volume] mmol/L to non-numeric Serum Health Syst em in Serum or results) Plasma Chloride 106 Normal (applies Chloride, [facility] [Moles/volume mmol/L to non-numeric Serum Health Syst em ] in Serum or results) Plasma Carbon 24.0 Normal (applies CO2, Serum [facility] dioxide, mmol/L to non-numeric Health System total results) [Moles/volume ] in Serum or Plasma Glucose 110 Above high normal Glucose, Serum [facility] [Mass/volume] mg/dL [facility] in Serum or Plasma Urea nitrogen 4 mg/dl Below low normal Blood Urea [facility] [Mass/volume] Nitrogen, Health [facility] in Serum or Serum Plasma Creatinine 0.70 Normal (applies Creatinine, [facility] [Mass/volume] mg/dl to non-numeric Serum Health Syst em in Serum or results) Plasma Calcium 9.2 Normal (applies Calcium, Total [facility] [Mass/volume] mg/dl to non-numeric Serum Health Syst em in Serum or results) Plasma Anion gap in 6.00 Below low normal Anion Gap [facility] Serum or mmol/L [facility] Plasma ID Date Data Source [id number] 02/04/2019 04:16:09 PM EST [facility] Name Value Range Interpretation Description Data Source(s ) Supporting Code Document(s ) DirectAn Negative Normal (applies to Direct [facility] tiglobul non-numeric Antiglobulin [facility] inTest. results) Test. ID Date Data Source [id number] 02/04/2019 04:16:09 PM EST [facility] Name Value Range Interpretation Description Data Sup porting Code Source(s) Document(s ) Type B Normal (applies Type [facility] to non-numeric Health results) System D Ab [Titer] in Rh Normal (applies Rh Factor, [facility] Serum or Plasma Positive to non-numeric Whole Blood Health results) System AntibodyScreen Negative Normal (applies Antibody [facility] to non-numeric Screen [facility] results) System ID Date Data Source [id number] 02/04/2019 04:16:09 PM EST [facility] Name Value Range Interpretation Description Data Sup porting Code Source(s) Document(s ) aPTT in Blood 24.7 Normal (applies Activated [facility] by Coagulation {Seconds to non-numeric Partial Health assay } results) Thromboplastin System Time ID Date Data Source [id number] 02/04/2019 04:16:09 PM EST [facility] Name Value Range Interpretation Description Data Sup porting Code Source(s) Document(s ) Prothrombintim 10.90 Normal (applies Prothrombin [facility](PT) to non-numeric time (PT) [facility] results) INR in Blood 1.02 Below low normal INR Result [facility] Co[facility] {Ratio} [facility] assay Normal = 0.7-1.1Therapeutic = 2.0-3.0Mec hanical Heart = 3.0-4.5 ID Date Data Source [id number] 02/04/2019 04:16:09 PM EST [facility] Name Value Range Interpretation Description Data Sup porting Code Source(s) Document(s ) Leukocytes 6.0 Normal (applies WBC Count [facility] [#/volume] in {10\\S\\3_ to non-numeric Health Unspecified uL} results) System specimen by Automated count Erythrocytes 4.56 Normal (applies RBC Count [facility] [#/volume] in {10\\S\\6_ to non-numeric Health Blood by uL} results) System Automated count Hemoglobin 10.1 Below low normal Hemoglobin, [facility] [Mass/volume] in {gm/dL} Whole Blood Health Blood System Erythrocyte mean 71.1 fl Below low normal MCV [facility] corpuscular Health volume [Entitic System volume] by Automated count Hematocrit 32.4 % Below low normal Hematocrit, [facility] [Volume Whole Blood Health Fraction] of System Blood Erythrocyte mean 22.1 pg Below low normal MCH [facility] corpuscular Health hemoglobin System [Entitic mass] by Automated count Erythrocyte mean 31.2 Below low normal MCHC [facility] corpuscular {gm/dL} Health hemoglobin System concentration [Mass/volume] by Automated count Erythrocyte 17.6 % Above high normal RDW [facility] distribution Health width [Entitic System volume] by Automated count Platelets 552 Above high normal Platelet [facility] [#/volume] in {10\\S\\3_ Count Health Plasma by uL} System Automated count Platelet mean 9.1 fl Normal (applies MPV [facility] volume [Entitic to non-numeric Health volume] in Blood results) System by Automated count ID Date Data Source [id number] 02/04/2019 04:16:09 PM EST [facility] Name Value Range Interpretation Description Data Sup porting Code Source(s) Document(s ) Sodium 141 mmol/L Normal (applies Sodium, [facility] [Moles/volume] to non-numeric Serum Health in Serum or results) System Plasma Potassium 4.1 mmol/L Normal (applies Potassium, [facility] [Mass/volume] to non-numeric Serum Health in Serum or results) System Plasma Chloride 109 mmol/L Above high Chloride, [facility] [Moles/volume] normal Serum Health in Serum or System Plasma Carbon dioxide, 23.0 mmol/L Normal (applies CO2, Serum [facility] total to non-numeric Health [Moles/volume] results) System in Serum or Plasma TotalProtein 6.9 mg/dl Normal (applies Total [facility] to non-numeric Protein Health results) System Glucose 95 mg/dL Normal (applies Glucose, [facility] [Mass/volume] to non-numeric Serum Health in Serum or results) System Plasma Urea nitrogen 5 mg/dl Below low Blood Urea [facility] [Mass/volume] normal Nitrogen, Health in Serum or Serum System Plasma Creatinine 0.70 mg/dl Normal (applies Creatinine, [facility] [Mass/volume] to non-numeric Serum Health in Serum or results) System Plasma Alkaline 78 {IU/L} Normal (applies Alkaline [facility] phosphatase to non-numeric Phosphatase, Health isoenzymes results) Serum System [Enzymatic activity/volume ] in Serum or Plasma by Heat stability Bilirubin.total 0.2 mg/dl Normal (applies Bilirubin, [facility] [Mass/volume] to non-numeric Serum Total Health in Serum or results) System Plasma Aspartate 11 {IU/L} Normal (applies Aspartate [facility] aminotransferas to non-numeric Transaminase Health e [Enzymatic results) , Serum System activity/volume ] in Serum or Plasma by With P-5'-P Albumin 4.1 {gm/dl} Normal (applies Albumin, [facility] [Mass/volume] to non-numeric Serum Health in Serum or results) System Plasma I.Phosphorus 3.2 mg/dl Normal (applies I. [facility] to non-numeric Phosphorus Health results) System Alanine 9 {IU/L} Normal (applies Alanine [facility] aminotransferas to non-numeric Aminotransfe Health e [Enzymatic results) rase, Serum System activity/volume ] in Serum or Plasma Calcium 9.6 mg/dl Normal (applies Calcium, [facility] [Mass/volume] to non-numeric Total Serum Health in Serum or results) System Plasma A/GRatio 1.46 Normal (applies A/G Ratio [facility] to non-numeric Health results) System Urate 5.6 mg/dl Normal (applies Uric Acid, [facility] [Mass/volume] to non-numeric Serum Health in Serum or results) System Plasma Anion gap in 9.00 mmol/L Normal (applies Anion Gap [facility] Serum or Plasma to non-numeric Health results) System Glomerular Greater than Normal (applies GFR [facility] filtration 60 eGFR will to non-numeric Health rate/1.73 sq provide results) System M.predicted clinicians [Volume with a more Rate/Area] in accurate Serum or Plasma indicator of by renal function Creatinine-base then the serum d formula creatinine. (CKD-EPI) The eGFR is automatically calculated from an empiric formula (endorsed by the [employer]) which incorporates age, sex, and race.Clinician s may notice surprisingly low GFR's with serum creatinine values within normal range- particularly in elderly women (with low muscle mass).In the hospital setting, the eGFR should add an element of safety in drug dosing, in assessing the risk of IV contrast administration , and in assessing vascular risk.The NKF staging system is as follows:Normal : eGFR >90 with no kidney markersStage 1: eGFR >90 with kidney markers*Stage 2: eGFR 60-89Stage 3: eGFR 30-59Stage 4: eGFR 15-29Stage 5: eGFR <15 (usually requiring dialysis)*Rodney ers include: Proteinuria, Hematuria, abnormal imaging-studie s, or other blood or urine test abnormalities ID Date Data Source [id number] 02/04/2019 04:16:09 PM [facility] Name Value Range Interpretation Description Data Sup porting Code Source(s) Document(s ) Phenobarbital 41.4 Above upper PHENobarbital [facility] [Mass/volume] in ug/ml panic limits Level, Serum Health Serum or Plasma System Result Reporting|Telephone|called/read b alejo po|01/16/2011 at 7:12 PMCalled to:Tech Name:Readback by:01/16/2011 / 7:11 PM ID Date Data Source [id number] 02/04/2019 04:16:09 PM [facility] Name Value Range Interpretation Description Data Sup porting Code Source(s) Document(s ) Glucose,UA Cancelled Glucose, UA [facility] Protein Cancelled Protein [facility] [Mass/volume] in Health Serum or Plasma System BilirubinUrine Cancelled Bilirubin [facility] Urine [facility] Urobilinogen Cancelled Urobilinogen [facility] [Mass/volume] in UA Health Urine System pH.. Cancelled pH.. [facility] Ketones Cancelled Ketones UA [facility] [Mass/volume] in Health Urine System Leukocyte Cancelled Leukocyte [facility] esterase Esterase Health [Units/volume] Concentration System in Urine Nitrate+Nitrite Cancelled Nitrite [facility] [Mass/volume] in Health Unspecified System specimen Appearance of Cancelled Urine [facility] Urine Appearance [facility] System Specific gravity Cancelled Urine Specific [facility] of Urine [facility] System Color Cancelled Color [facility] System UrineBlood Cancelled Urine Blood [facility] System ID Date Data Source [id number] 02/04/2019 04:16:09 PM EST [facility] Name Value Range Interpretation Description Data Sup porting Code Source(s) Document(s ) Leukocytes 5.8 Normal (applies WBC Count [facility] [#/volume] in {10\\S\\3_ to non-numeric Health Unspecified uL} results) System specimen by Automated count Erythrocytes 4.38 Normal (applies RBC Count [facility] [#/volume] in {10\\S\\6_ to non-numeric Health Blood by uL} results) System Automated count Hemoglobin 9.6 Below low normal Hemoglobin, [facility] [Mass/volume] in {gm/dL} Whole Blood Health Blood System Hematocrit 31.5 % Below low normal Hematocrit, [facility] [Volume Whole Blood Health Fraction] of System Blood Erythrocyte mean 71.9 fl Below low normal MCV [facility] corpuscular Health volume [Entitic System volume] by Automated count Erythrocyte mean 21.9 pg Below low normal MCH [facility] corpuscular Health hemoglobin System [Entitic mass] by Automated count Erythrocyte 17.7 % Above high normal RDW [facility] distribution Health width [Entitic System volume] by Automated count Erythrocyte mean 30.5 Below low normal MCHC [facility] corpuscular {gm/dL} Health hemoglobin System concentration [Mass/volume] by Automated count Platelets 456 Above high normal Platelet [facility] [#/volume] in {10\\S\\3_ Count Health Plasma by uL} System Automated count Platelet mean 10.4 fl Normal (applies MPV [facility] volume [Entitic to non-numeric Health volume] in Blood results) System by Automated count Monocytes 0.4 Normal (applies Monocyte [facility] [#/volume] in {10\\S\\3_ to non-numeric Count Health Blood by Manual uL} results) System count Eosinophils 0.1 Normal (applies Eosinophil [facility] [#/volume] in {10\\S\\3} to non-numeric Count Blood Health Blood results) System Neutrophils 3.2 Normal (applies Absolute [facility] [#/volume] in {10\\S\\3_ to non-numeric Neutrophil Health Body fluid uL} results) Count System Lymphocyte 2.1 Normal (applies Lymphocyte [facility] percent {10\\S\\3_ to non-numeric Absolute Health differential uL} results) System count (procedure) Basophils 0.06 Normal (applies Basophil [facility] [#/volume] in {10\\S\\3_ to non-numeric Count Health Blood by uL} results) System Automated count Neutrophils/100 54.8 % Normal (applies Neutrophil % [facility] leukocytes in to non-numeric Health Blood by results) System Automated count Monocytes/100 7 % Normal (applies Monocyte % [facility] leukocytes in to non-numeric Health Blood results) System Eosinophils/100 2 % Normal (applies Eosinophil % [facility] leukocytes in to non-numeric Health Unspecified results) System specimen Basophils/100 1 % Normal (applies Basophil % [facility] leukocytes in to non-numeric Health Unspecified results) System specimen by Manual count Lymphocytes 35 % Normal (applies Lymphocyte % [facility] [#/volume] in to non-numeric Health Blood by results) System Automated count ID Date Data Source [id number] 02/04/2019 04:16:09 PM EST [facility] Name Value Range Interpretation Description Data Sup porting Code Source(s) Document(s ) Sodium 140 mmol/L Normal (applies Sodium, [facility] [Moles/volume] to non-numeric Serum Health in Serum or results) System Plasma Potassium 4.3 mmol/L Normal (applies Potassium, [facility] [Mass/volume] to non-numeric Serum Health in Serum or results) System Plasma Chloride 110 mmol/L Above high Chloride, [facility] [Moles/volume] normal Serum Health in Serum or System Plasma Carbon dioxide, 17.0 mmol/L Below low CO2, Serum [facility] total normal Health [Moles/volume] System in Serum or Plasma TotalProtein 6.0 mg/dl Below low Total [facility] normal Protein Health System Glucose 72 mg/dL Normal (applies Glucose, [facility] [Mass/volume] to non-numeric Serum Health in Serum or results) System Plasma Creatinine 0.70 mg/dl Normal (applies Creatinine, [facility] [Mass/volume] to non-numeric Serum Health in Serum or results) System Plasma Urea nitrogen 5 mg/dl Below low Blood Urea [facility] [Mass/volume] normal Nitrogen, Health in Serum or Serum System Plasma Alkaline 67 {IU/L} Normal (applies Alkaline [facility] phosphatase to non-numeric Phosphatase, Health isoenzymes results) Serum System [Enzymatic activity/volume ] in Serum or Plasma by Heat stability Bilirubin.total 0.2 mg/dl Normal (applies Bilirubin, [facility] [Mass/volume] to non-numeric Serum Total Health in Serum or results) System Plasma Aspartate 12 {IU/L} Normal (applies Aspartate [facility] aminotransferas to non-numeric Transaminase Health e [Enzymatic results) , Serum System activity/volume ] in Serum or Plasma by With P-5'-P Albumin 3.4 {gm/dl} Below low Albumin, [facility] [Mass/volume] normal Serum Health in Serum or System Plasma I.Phosphorus 3.7 mg/dl Normal (applies I. [facility] to non-numeric Phosphorus Health results) System Alanine 8 {IU/L} Normal (applies Alanine [facility] aminotransferas to non-numeric Aminotransfe Health e [Enzymatic results) rase, Serum System activity/volume ] in Serum or Plasma Calcium 8.9 mg/dl Normal (applies Calcium, [facility] [Mass/volume] to non-numeric Total Serum Health in Serum or results) System Plasma A/GRatio 1.31 Normal (applies A/G Ratio [facility] to non-numeric Health results) System Urate 5.7 mg/dl Normal (applies Uric Acid, [facility] [Mass/volume] to non-numeric Serum Health in Serum or results) System Plasma Anion gap in 13.00 mmol/L Above high Anion Gap [facility] Serum or Plasma normal Health System Glomerular Greater than Normal (applies GFR [facility] filtration 60 eGFR will to non-numeric Health rate/1.73 sq provide results) System M.predicted clinicians [Volume with a more Rate/Area] in accurate Serum or Plasma indicator of by renal function Creatinine-base then the serum d formula creatinine. (CKD-EPI) The eGFR is automatically calculated from an empiric formula (endorsed by the [employer]) which incorporates age, sex, and race.Clinician s may notice surprisingly low GFR's with serum creatinine values within normal range- particularly in elderly women (with low muscle mass).In the hospital setting, the eGFR should add an element of safety in drug dosing, in assessing the risk of IV contrast administration , and in assessing vascular risk.The NKF staging system is as follows:Normal : eGFR >90 with no kidney markersStage 1: eGFR >90 with kidney markers*Stage 2: eGFR 60-89Stage 3: eGFR 30-59Stage 4: eGFR 15-29Stage 5: eGFR <15 (usually requiring dialysis)*Rodney ers include: Proteinuria, Hematuria, abnormal imaging-studie s, or other blood or urine test abnormalities ID Date Data Source [id number] 02/04/2019 04:16:09 PM EST [facility] Name Value Range Interpretation Description Data Sup porting Code Source(s) Document(s ) Phenobarbital 37.6 Normal (applies PHENobarbital [facility] [Mass/volume] in ug/ml to non-numeric Level, Serum Healt h Serum or Plasma results) System ID Date Data Source [id number] 02/04/2019 04:16:09 PM EST [facility] Name Value Range Interpretation Description Data Source(s ) Supporting Code Document(s ) Iron 13 ug/dL Below low normal Iron, Serum [facility] [Mass/volum Health System e] in Serum or Plasma ID Date Data Source [id number] 02/04/2019 04:16:09 PM EST [facility] Name Value Range Interpretation Code Description Data Nayn rce(s) Supporting Document(s ) %Saturati 4.00 % Normal (applies to % Saturation [facility] on non-numeric Health System results) ID Date Data Source [id number] 02/04/2019 04:16:09 PM EST [facility] Name Value Range Interpretation Description Data Sup porting Code Source(s) Document(s ) Leukocytes 9.0 Normal (applies WBC Count [facility] [#/volume] in {10\\S\\3_ to non-numeric Health Unspecified uL} results) System specimen by Automated count Erythrocytes 4.50 Normal (applies RBC Count [facility] [#/volume] in {10\\S\\6_ to non-numeric Health Blood by uL} results) System Automated count Hemoglobin 9.8 Below low normal Hemoglobin, [facility] [Mass/volume] in {gm/dL} Whole Blood Health Blood System Erythrocyte mean 70.7 fl Below low normal MCV [facility] corpuscular Health volume [Entitic System volume] by Automated count Hematocrit 31.8 % Below low normal Hematocrit, [facility] [Volume Whole Blood Health Fraction] of System Blood Erythrocyte mean 21.8 pg Below low normal MCH [facility] corpuscular Health hemoglobin System [Entitic mass] by Automated count Erythrocyte mean 30.8 Below low normal M[facility]C [facility] corpuscular {gm/dL} Health hemoglobin System concentration [Mass/volume] by Automated count Platelets 441 Above high normal Platelet [facility] [#/volume] in {10\\S\\3_ Count Health Plasma by uL} System Automated count Erythrocyte 17.5 % Above high normal RDW [facility] distribution Health width [Entitic System volume] by Automated count Platelet mean 9.0 fl Normal (applies MPV [facility] volume [Entitic to non-numeric Health volume] in Blood results) System by Automated count Monocytes 0.7 Normal (applies Monocyte [facility] [#/volume] in {10\\S\\3_ to non-numeric Count Health Blood by Manual uL} results) System count Eosinophils 0.2 Normal (applies Eosinophil [facility] [#/volume] in {10\\S\\3} to non-numeric Count Blood Health Blood results) System Basophils 0.05 Normal (applies Basophil [facility] [#/volume] in {10\\S\\3_ to non-numeric Count Health Blood by uL} results) System Automated count Neutrophils 6.6 Normal (applies Absolute [facility] [#/volume] in {10\\S\\3_ to non-numeric Neutrophil Health Body fluid uL} results) Count System Lymphocyte 1.5 Normal (applies Lymphocyte [facility] percent {10\\S\\3_ to non-numeric Absolute Health differential uL} results) System count (procedure) Neutrophils/100 73.1 % Normal (applies Neutrophil % [facility]o savi leukocytes in to non-numeric Health Blood by results) System Automated count Monocytes/100 8 % Normal (applies Monocyte % [facility] leukocytes in to non-numeric Health Blood results) System Eosinophils/100 2 % Normal (applies Eosinophil % [facility] savi leukocytes in to non-numeric Health Unspecified results) System specimen Basophils/100 1 % Normal (applies Basophil % [facility] leukocytes in to non-numeric Health Unspecified results) System specimen by Manual count Lymphocytes 17 % Below low normal Lymphocyte % [facility] [#/volume] in Health Blood by System Automated count ID Date Data Source [id number] 02/04/2019 04:16:09 PM EST [facility] Name Value Range Interpretation Description Data Sup porting Code Source(s) Document(s ) hCGQuantitative Less than 5.0 Normal (applies hCG [facility] APPROXIMATE to non-numeric Quantitative Health GEST. AGE results) System APPROXIMATE HCG mIU/ML 0.2 - 1 week 5 - 50 1 - 2 weeks 50 - 500 2 - 3 weeks 100 - 5,000 3 - 4 weeks 500 - 10,000 4 - 5 weeks 1,000 - 50,000 5 - 6 weeks 10,000 - 100,000 6 - 8 weeks 15,000 - 200,000 8 - 12 weeks 10,000 - 100,000HCG levels between 5-25 mIU/mL may be indiviative of early . Correlation with other clinical findings and/or repeat of HCG quantitative testing recommened. ID Date Data Source [id number] 02/04/2019 04:16:09 PM EST [facility] Name Value Range Interpretation Description Data Sup porting Code Source(s) Document(s ) Sodium 139 mmol/L Normal (applies Sodium, [facility] [Moles/volume] to non-numeric Serum Health in Serum or results) System Plasma Potassium 4.4 mmol/L Normal (applies Potassium, [facility] [Mass/volume] to non-numeric Serum Health in Serum or results) System Plasma Chloride 109 mmol/L Above high Chloride, [facility] [Moles/volume] normal Serum Health in Serum or System Plasma Carbon dioxide, 19.0 mmol/L Below low CO2, Serum [facility] total normal Health [Moles/volume] System in Serum or Plasma TotalProtein 6.9 mg/dl Normal (applies Total [facility] to non-numeric Protein Health results) System Glucose 110 mg/dL Above high Glucose, [facility] [Mass/volume] normal Serum Health in Serum or System Plasma Urea nitrogen 9 mg/dl Normal (applies Blood Urea [facility] [Mass/volume] to non-numeric Nitrogen, Health in Serum or results) Serum System Plasma Creatinine 0.80 mg/dl Normal (applies Creatinine, [facility] [Mass/volume] to non-numeric Serum Health in Serum or results) System Plasma Alkaline 78 {IU/L} Normal (applies Alkaline [facility] phosphatase to non-numeric Phosphatase, Health isoenzymes results) Serum System [Enzymatic activity/volume ] in Serum or Plasma by Heat stability Bilirubin.total 0.1 mg/dl Below low Bilirubin, [facility] [Mass/volume] normal Serum Total Health in Serum or System Plasma Albumin 4.0 {gm/dl} Normal (applies Albumin, [facility] [Mass/volume] to non-numeric Serum Health in Serum or results) System Plasma Aspartate 12 {IU/L} Normal (applies Aspartate [facility] aminotransferas to non-numeric Transaminase Health e [Enzymatic results) , Serum System activity/volume ] in Serum or Plasma by With P-5'-P I.Phosphorus 3.5 mg/dl Normal (applies I. [facility] to non-numeric Phosphorus Health results) System Alanine 9 {IU/L} Normal (applies Alanine [facility] aminotransferas to non-numeric Aminotransfe Health e [Enzymatic results) rase, Serum System activity/volume ] in Serum or Plasma Calcium 9.7 mg/dl Normal (applies Calcium, [facility] [Mass/volume] to non-numeric Total Serum Health in Serum or results) System Plasma A/GRatio 1.38 Normal (applies A/G Ratio [facility] to non-numeric Health results) System Urate 5.2 mg/dl Normal (applies Uric Acid, [facility] [Mass/volume] to non-numeric Serum Health in Serum or results) System Plasma Anion gap in 11.00 mmol/L Normal (applies Anion Gap [facility] Serum or Plasma to non-numeric Health results) System Glomerular Greater than Normal (applies GFR [facility] filtration 60 eGFR will to non-numeric Health rate/1.73 sq provide results) System M.predicted clinicians [Volume with a more Rate/Area] in accurate Serum or Plasma indicator of by renal function Creatinine-base then the serum d formula creatinine. (CKD-EPI) The eGFR is automatically calculated from an empiric formula (endorsed by the [employer]) which incorporates age, sex, and race.Clinician s may notice surprisingly low GFR's with serum creatinine values within normal range- particularly in elderly women (with low muscle mass).In the hospital setting, the eGFR should add an element of safety in drug dosing, in assessing the risk of IV contrast administration , and in assessing vascular risk.The NKF staging system is as follows:Normal : eGFR >90 with no kidney markersStage 1: eGFR >90 with kidney markers*Stage 2: eGFR 60-89Stage 3: eGFR 30-59Stage 4: eGFR 15-29Stage 5: eGFR <15 (usually requiring dialysis)*Rodney ers include: Proteinuria, Hematuria, abnormal imaging-studie s, or other blood or urine test abnormalities ID Date Data Source [id number] 02/04/2019 04:16:09 PM [facility] Name Value Range Interpretation Description Data Sup porting Code Source(s) Document(s ) Phenobarbital 47.8 Above upper PHENobarbital [facility] [Mass/volume] in ug/ml panic limits Level, Serum Health Serum or Plasma System Result Reporting|Telephone|WILLIAM|02/01/20 11 at 5:59 PMCalled to:Tech Name:MACHOANTReadyaneth by:ED04/03/2010 / 5:59 PM ID Date Data Source [id number] 02/04/2019 04:16:09 PM [facility] Name Value Range Interpretation Description Data Source(s ) Supporting Code Document(s ) Lipase 33 U/L Normal (applies to Lipase, Serum [facility] [Enzymatic non-numeric Health System activity/vo results) lume] in Serum or Plasma ID Date Data Source [id number] 02/04/2019 04:16:09 PM EST [facility] Name Value Range Interpretation Description Data Sup porting Code Source(s) Document(s ) Amylase 78 {IU/L} Normal (applies to Amylase, Serum [facility] [Enzymatic non-numeric Health System activity/vo results) lume] in Serum or Plasma ID Date Data Source [id number] 02/04/2019 04:16:09 PM EST [facility] Name Value Range Interpretation Description Data Sup porting Code Source(s) Document(s ) Bacteria NO GROWTH Cult Bacteria [facility] identified in Blood [facility] System Blood by Aerobe culture ID Date Data Source [id number] 02/04/2019 04:16:09 PM [facility] System Name Value Range Interpretation Description Data Sup porting Code Source(s) Document(s ) Color Cancelled Color [facility] System Appearance of Cancelled [facility]rine [facility] System Specific gravity Cancelled Urine Specific [facility] of Urine [facility] System pH.. Cancelled pH.. [facility] System Glucose,UA Cancelled Glucose, UA [facility] System Protein Cancelled Protein [facility] [Mass/volume] in Health Serum or Plasma System BilirubinUrine Cancelled Bilirubin [facility] Urine [facility] System Urobilinogen Cancelled Urobilinogen [facility] [Mass/volume] in [facility] Urine System Ketones Cancelled Ketones UA [facility] [Mass/volume] in [facility] Urine System Nitrate+Nitrite Cancelled Nitrite [facility] [Mass/volume] in Health Unspecified System specimen Leukocyte Cancelled Leukocyte [facility] esterase Esterase Health [Units/volume] Concentration System in Urine UrineBlood Cancelled Urine Blood [facility] ID Date Data Source [id number] 02/04/2019 04:16:09 PM [facility] System Name Value Range Interpretation Description Data Sup porting Code Source(s) Document(s ) Color Cancelled Color [facility] System Appearance of [facility]ancelled Urine [facility] Urine Appearance [facility] System Specific gravity Cancelled Urine Specific [facility] of Urine [facility] System pH.. Cancelled pH.. [facility] System Glucose,UA Cancelled Glucose, UA [facility] System Protein Cancelled Protein [facility] [Mass/volume] in Health Serum or Plasma System BilirubinUrine Cancelled Bilirubin [facility] Urine [facility] System Urobilinogen Cancelled Urobilinogen [facility] [Mass/volume] in [facility] Urine System Ketones Cancelled Ketones UA [facility] [Mass/volume] in [facility] Urine System Nitrate+Nitrite Cancelled Nitrite [facility] [Mass/volume] in Health Unspecified System specimen Leukocyte Cancelled Leukocyte [facility] esterase Esterase Health [Units/volume] Concentration System in Urine UrineBlood Cancelled Urine Blood [facility] ID Date Data Source [id number] 02/04/2019 04:16:09 PM EST [facility] Name Value Range Interpretation Description Data Sup porting Code Source(s) Document(s ) Levetiracetam 4.60 Normal (applies LevETIRAcetam [facility] [Mass/volume] in {mcg/mL to non-numeric Level, Serum Healt h Serum or Plasma } results) System ID Date Data Source [id number] 02/04/2019 04:16:09 PM EST [facility] Name Value Range Interpretation Description Data Sup porting Code Source(s) Document(s ) Color YELLOW Normal (applies Color [facility] to non-numeric Health results) System Appearance of CLEAR Normal (applies Urine [facility] Urine to non-numeric Appearance Health results) System Specific Greater Normal (applies Urine [facility] gravity of than =1.030 to non-numeric Specific Health Urine results) [place] System pH.. 5.5 Normal (applies pH.. [facility] {pH_units} to non-numeric Health results) System Glucose,UA NEGATIVE Normal (applies Glucose, UA [facility] to non-numeric Health results) System Negative Protein TRACE Normal (applies Protein [facility] [Mass/volume] in to non-numeric Health S ystem Serum or Plasma results) BilirubinUrine NEGATIVE Normal (applies Bilirubin Urine [facility] to non-numeric Health System results) Urobilinogen 0.20 {eu/dL} Normal (applies Urobilinogen UA [facility] [Mass/volume] in to non-numeric Health S yste Urine results) Ketones NEGATIVE Normal (applies Ketones UA [facility] [Mass/volume] in to non-numeric Health S yste Urine results) Negative Nitrate+Nitrite NEGATIVE Normal (applies to Nitrite [facility] Health [Mass/volume] in non-numeric results) Sy stem Unspecified specimen Negative Leukocyte esterase NEGATIVE Normal (applies Leukocyte Shawna ase [facility] [Units/volume] in to non-numeric Concentration a lt System Urine results) Negative Leukocytes [#/volume] 0-2 Normal (applies to White Blood Cells [facility] in Unspecified non-numeric System specimen by Automated results) count RedBloodCells 10-25 Normal (applies to Red Blood Cells [facility] non-numeric System results) Epithelial cells 10-15 Normal (applies to Epithelial Krystal ls [facility] [Presence] in non-numeric System Unspecified specimen results) by Wet preparation Bacteria [Presence] none Normal (applies to Bacteria [facility] in Unspecified non-numeric System specimen results) UrineBlood LARGE Abnormal (applies Urine Blood [facility] to non-numeric System results) ID Date Data Source [id number] 02/04/2019 04:16:09 PM EST [facility] Name Value Range Interpretation Description Data Sup porting Code Source(s) Document(s ) Leukocytes 6.9 Normal (applies WBC Count [facility] [#/volume] in {10\\S\\3_ to non-numeric Health Unspecified uL} results) System specimen by Automated count Erythrocytes 4.73 Normal (applies RBC Count [facility] [#/volume] in {10\\S\\6_ to non-numeric Health Blood by uL} results) System Automated count Hemoglobin 10.1 Below low normal Hemoglobin, [facility] [Mass/volume] in {gm/dL} Whole Blood Health Blood System Hematocrit 33.8 % Below low normal Hematocrit, [facility] [Volume Whole Blood Health Fraction] of System Blood Erythrocyte mean 71.5 fl Below low normal MCV [facility] corpuscular Health volume [Entitic System volume] by Automated count Erythrocyte mean 21.4 pg Below low normal MCH [facility] [place] corpuscular Health hemoglobin System [Entitic mass] by Automated count Erythrocyte mean 29.9 Below low normal MCHC [facility] corpuscular {gm/dL} Health hemoglobin System concentration [Mass/volume] by Automated count Erythrocyte 17.8 % Above high normal RDW [facility] distribution Health width [Entitic System volume] by Automated count Platelet mean 9.6 fl Normal (applies MPV [facility] volume [Entitic to non-numeric Health volume] in Blood results) System by Automated count Platelets 506 Above high normal Platelet [facility] [#/volume] in {10\\S\\3_ Count Health Plasma by uL} System Automated count Monocytes 0.5 Normal (applies Monocyte [facility] [#/volume] in {10\\S\\3_ to non-numeric Count Health Blood by Manual uL} results) System count Eosinophils 0.1 Normal (applies Eosinophil [facility] [#/volume] in {10\\S\\3} to non-numeric Count Blood Health Blood results) System Basophils 0.04 Normal (applies Basophil [facility] [#/volume] in {10\\S\\3_ to non-numeric Count Health Blood by uL} results) System Automated count Neutrophils 4.2 Normal (applies Absolute [facility] [#/volume] in {10\\S\\3_ to non-numeric Neutrophil Health Body fluid uL} results) Count System Lymphocyte 2.1 Normal (applies Lymphocyte [facility] percent {10\\S\\3_ to non-numeric Absolute Health differential uL} results) System count (procedure) Neutrophils/100 60.5 % Normal (applies Neutrophil % Jono savi leukocytes in to non-numeric Health Blood by results) System Automated count Monocytes/100 8 % Normal (applies Monocyte % [facility] leukocytes in to non-numeric Health Blood results) System Eosinophils/100 1 % Normal (applies Eosinophil % Jono savi leukocytes in to non-numeric Health Unspecified results) System specimen Basophils/100 1 % Normal (applies Basophil % [facility] leukocytes in to non-numeric Health Unspecified results) System specimen by Manual count Lymphocytes 30 % Normal (applies Lymphocyte % [facility] [#/volume] in to non-numeric Health Blood by results) System Automated count ID Date Data Source [id number] 02/04/2019 04:16:09 PM EST [facility] Name Value Range Interpretation Description Data Sup porting Code Source(s) Document(s ) Albumin 3.9 Normal (applies Albumin, [facility] [Mass/volume] in {gm/dl} to non-numeric Serum Health Serum or Plasma results) System Bilirubin.total 0.2 Normal (applies Bilirubin, [facility] [Mass/volume] in mg/dl to non-numeric Serum Total Health Serum or Plasma results) System Aspartate 22 Normal (applies Aspartate [facility] aminotransferase {IU/L} to non-numeric Transaminase, Heal th [Enzymatic results) Serum System activity/volume] in Serum or Plasma by With P-5'-P Alanine 10 Normal (applies Alanine [facility] aminotransferase {IU/L} to non-numeric Aminotransfer Heal th [Enzymatic results) ase, Serum System activity/volume] in Serum or Plasma Alkaline 85 Normal (applies Alkaline [facility] phosphatase {IU/L} to non-numeric Phosphatase, Health isoenzymes results) Serum System [Enzymatic activity/volume] in Serum or Plasma by Heat stability DirectBilirubin 0.1 Normal (applies Direct [facility] mg/dl to non-numeric Bilirubin Health results) System TotalProtein 7.3 Normal (applies Total Protein [facility] mg/dl to non-numeric Health results) System ID Date Data Source [id number] 02/04/2019 04:16:09 PM EST [facility] Name Value Range Interpretation Description Data Sup porting Code Source(s) Document(s ) Phenobarbital 38.7 Normal (applies PHENobarbital [facility] [Mass/volume] in ug/ml to non-numeric Level, Serum Healt h Serum or Plasma results) System ID Date Data Source [id number] 02/04/2019 04:16:09 PM EST [facility] Name Value Range Interpretation Description Data Sup porting Code Source(s) Document(s ) Sodium 136 mmol/L Below low normal Sodium, Serum [facility] [Moles/volum Health e] in Serum System or Plasma Potassium 4.9 mmol/L Normal (applies Potassium, [facility] [Mass/volume to non-numeric Serum Health ] in Serum results) System or Plasma Urea 7 mg/dl Normal (applies Blood Urea [facility] nitrogen to non-numeric Nitrogen, Health [Mass/volume results) Serum System ] in Serum or Plasma Creatinine 0.70 mg/dl Normal (applies Creatinine, [facility] [Mass/volume to non-numeric Serum Health ] in Serum results) System or Plasma Albumin 3.9 {gm/dl} Normal (applies Albumin, [facility] [Mass/volume to non-numeric Serum Health ] in Serum results) System or Plasma I.Phosphorus 4.1 mg/dl Normal (applies I. Phosphorus [facility] to non-numeric Health results) System Glucose 87 mg/dL Normal (applies Glucose, [facility] [Mass/volume to non-numeric Serum Health ] in Serum results) System or Plasma Chloride 107 mmol/L Normal (applies Chloride, [facility] [Moles/volum to non-numeric Serum Health e] in Serum results) System or Plasma Carbon 19.0 mmol/L Below low normal CO2, Serum [facility] dioxide, Health total System [Moles/volum e] in Serum or Plasma Calcium 9.6 mg/dl Normal (applies Calcium, [facility] [Mass/volume to non-numeric Total Serum Health ] in Serum results) System or Plasma Glomerular Greater than 60 Normal (applies GFR [facility] filtration eGFR will to non-numeric Health rate/1.73 sq provide results) System M.predicted clinicians with [Volume a more accurate Rate/Area] indicator of in Serum or renal function Plasma by then the serum Creatinine-b creatinine. The ased formula eGFR is (CKD-EPI) automatically calculated from an empiric formula (endorsed by the [employer]) which incorporates age, sex, and race.Clinicians may notice surprisingly low GFR's with serum creatinine values within normal range- particularly in elderly women (with low muscle mass).In the hospital setting, the eGFR should add an element of safety in drug dosing, in assessing the risk of IV contrast administration, and in assessing vascular risk.The NKF staging system is as follows:Normal: eGFR >90 with no kidney markersStage 1: eGFR >90 with kidney markers*Stage 2: eGFR 60-89Stage 3: eGFR 30-59Stage 4: eGFR 15-29Stage 5: eGFR <15 (usually requiring dialysis)*Marke rs include: Proteinuria, Hematuria, abnormal imaging-studies , or other blood or urine test abnormalities Anion gap in 10.00 mmol/L Normal (applies Anion Gap [facility] Serum or to non-numeric Health Plasma results) System ID Date Data Source [id number] 02/04/2019 04:16:09 PM EST [facility] Name Value Range Interpretation Description Data Sup porting Code Source(s) Document(s ) Iron/Iron 387.00 Normal (applies to Total Iron [facility] binding ug/dL non-numeric Binding Health System capacity.to results) Capacity brandon [Mass Ratio] in Serum or Plasma %Saturation 36.00 % Normal (applies to % Saturation [facility] non-numeric Health System results) ID Date Data Source [id number] 02/04/2019 04:16:09 PM EST [facility] Name Value Range Interpretation Description Data Sup porting Code Source(s) Document(s ) Ferritin 7.3 ng/ml Below low normal Ferritin, [facility] [Mass/volume Serum Health System ] in Serum or Plasma ID Date Data Source [id number] 02/04/2019 04:16:09 PM EST [facility] Name Value Range Interpretation Description Data Sup porting Code Source(s) Document(s ) Anticardiolipin Less Normal (applies Anticardiolipin [facility] antibody than 10 to non-numeric IgG, Serum Health measurement results) System (procedure) Serum Less Normal (applies Anticardiolipin [facility] immunoglobulin M than 10 to non-numeric IgM, Serum Health anticardiolipin results) System measurement (procedure) Anti-Cardio.IgA Less Normal (applies Anti-Cardio. IgA [facility] than 10 to non-numeric Health results) System ID Date Data Source [id number] 02/04/2019 04:16:09 PM EST [facility] Name Value Range Interpretation Code Description Data Nany rce(s) Supporting Document(s ) ANAEIA Negative Normal (applies to MAKENZIE EIA [facility] non-numeric results) Health Sy stem ID Date Data Source [id number] 02/04/2019 04:16:09 PM EST [facility] Name Value Range Interpretation Description Data Sup porting Code Source(s) Document(s ) Erythrocyte 16 Normal (applies Sedimentation [facility] sedimentation {mmlhr} to non-numeric Rate, Health rate by 2H results) Erythrocyte System Westergren method ID Date Data Source [id number] 02/04/2019 04:16:09 PM EST [facility] Name Value Range Interpretation Description Data Sup porting Code Source(s) Document(s ) Creatine 60 {IU/L} Normal (applies Creatine [facility] kinase.MB to non-numeric Kinase, Serum Health Syst em [Mass/volume results) ] in Serum or Plasma ID Date Data Source [id number] 02/04/2019 04:16:09 PM EST [facility] Name Value Range Interpretation Description Data Sup porting Code Source(s) Document(s ) Leukocytes 7.7 Normal (applies WBC Count [facility] [#/volume] in {10\\S\\3_ to non-numeric Health Unspecified uL} results) System specimen by Automated count Erythrocytes 4.60 Normal (applies RBC Count [facility] [#/volume] in {10\\S\\6_ to non-numeric Health Blood by uL} results) System Automated count Hemoglobin 9.9 Below low normal Hemoglobin, [facility] [Mass/volume] in {gm/dL} Whole Blood Health Blood System Hematocrit 33.0 % Below low normal Hematocrit, [facility] [Volume Whole Blood Health Fraction] of System Blood Erythrocyte mean 71.7 fl Below low normal MCV [facility] corpuscular Health volume [Entitic System volume] by Automated count Erythrocyte mean 21.5 pg Below low normal MCH [facility] corpuscular Health hemoglobin System [Entitic mass] by Automated count Erythrocyte mean 30.0 Below low normal MCHC [facility] corpuscular {gm/dL} Health hemoglobin System concentration [Mass/volume] by Automated count Erythrocyte 17.5 % Above high normal RDW [facility] distribution Health width [Entitic System volume] by Automated count Platelets 468 Above high normal Platelet [facility] [#/volume] in {10\\S\\3_ Count Health Plasma by uL} System Automated count Platelet mean 9.3 fl Normal (applies MPV [facility] volume [Entitic to non-numeric Health volume] in Blood results) System by Automated count Monocytes 0.6 Normal (applies Monocyte [facility] [#/volume] in {10\\S\\3_ to non-numeric Count Health Blood by Manual uL} results) System count Eosinophils 0.1 Normal (applies Eosinophil [facility] [#/volume] in {10\\S\\3} to non-numeric Count Blood Health Blood results) System Basophils 0.04 Normal (applies Basophil [facility] [#/volume] in {10\\S\\3_ to non-numeric Count Health Blood by uL} results) System Automated count Neutrophils 3.9 Normal (applies Absolute [facility] [#/volume] in {10\\S\\3_ to non-numeric Neutrophil Health Body fluid uL} results) Count System Lymphocyte 3.1 Normal (applies Lymphocyte [facility] percent {10\\S\\3_ to non-numeric Absolute Health differential uL} results) System count (procedure) Neutrophils/100 50.8 % Normal (applies Neutrophil % [facility] savi leukocytes in to non-numeric Health Blood by results) System Automated count Monocytes/100 7 % Normal (applies Monocyte % [facility] leukocytes in to non-numeric Health Blood results) System Eosinophils/100 2 % Normal (applies Eosinophil % [facility] savi leukocytes in to non-numeric Health Unspecified results) System specimen Basophils/100 1 % Normal (applies Basophil % [facility] leukocytes in to non-numeric Health Unspecified results) System specimen by Manual count Lymphocytes 40 % Normal (applies Lymphocyte % [facility] [#/volume] in to non-numeric Health Blood by results) System Automated count ID Date Data Source [id number] 02/04/2019 04:16:09 PM EST [facility] Name Value Range Interpretation Description Data Sup porting Code Source(s) Document(s ) Sodium 135 Below low normal Sodium, Serum [facility] [Moles/volume mmol/L Health System ] in Serum or Plasma Potassium 4.3 Normal (applies Potassium, [facility] [Mass/volume] mmol/L to non-numeric Serum Health Syst em in Serum or results) Plasma Chloride 102 Normal (applies Chloride, [facility] [Moles/volume mmol/L to non-numeric Serum Health Syst em ] in Serum or results) Plasma Carbon 23.0 Normal (applies CO2, Serum [facility] dioxide, mmol/L to non-numeric Health System total results) [Moles/volume ] in Serum or Plasma ok TotalProtein 6.8 mg/dl Normal (applies Total Protein [facility] to non-numeric Health System results) Glucose [Mass/volume] 90 mg/dL Normal (applies Glucose, Ser um [facility] in Serum or Plasma to non-numeric Health System results) Urea nitrogen 5 mg/dl Below low Blood Urea [facility] [Mass/volume] in normal Nitrogen, Health System Serum or Plasma Serum Creatinine 0.80 mg/dl Normal (applies Creatinine, [facility] [Mass/volume] in to non-numeric Serum Health S ystem Serum or Plasma results) Alkaline phosphatase 85 {IU/L} Normal (applies Alkaline [facility] isoenzymes [Enzymatic to non-numeric Phosphatase, Health System activity/volume] in results) Serum Serum or Plasma by Heat stability Bilirubin.total 0.2 mg/dl Normal (applies Bilirubin, [facility] [Mass/volume] in to non-numeric Serum Total Health System Serum or Plasma results) Aspartate 10 {IU/L} Normal (applies Aspartate [facility] aminotransferase to non-numeric Transaminase, [facility] System [Enzymatic results) Serum activity/volume] in Serum or Plasma by With P-5'-P Albumin [Mass/volume] 4.0 {gm/dl} Normal (applies Albumin, S barrie [facility] in Serum or Plasma to non-numeric Health System results) I.Phosphorus 3.9 mg/dl Normal (applies I. Phosphorus [facility] to non-numeric Health System results) Alanine 9 {IU/L} Normal (applies Alanine [facility] aminotransferase to non-numeric Aminotransfera a [facility] System [Enzymatic results) se, Serum activity/volume] in Serum or Plasma Calcium [Mass/volume] 9.7 mg/dl Normal (applies Calcium, Tot al [facility] in Serum or Plasma to non-numeric Serum Health System results) A/GRatio 1.43 Normal (applies A/G Ratio [facility] to non-numeric Health System results) Urate [Mass/volume] 5.7 mg/dl Normal (applies Uric Acid, [facility] in Serum or Plasma to non-numeric Serum Health System results) Anion gap in Serum or 10.00 mmol/L Normal (applies Anion Gap [facility] Plasma to non-numeric Health System results) Glomerular filtration Greater than 60 Normal (applies GFR [facility] rate/1.73 sq eGFR will provide to non-numeric [facility] System M.predicted [Volume clinicians with a results) Rate/Area] in Serum more accurate or Plasma by indicator of Creatinine-based renal function formula (CKD-EPI) then the serum creatinine. The eGFR is automatically calculated from an empiric formula (endorsed by the [employer] Kid[employer]) which incorporates age, sex, and race.Clinicians may notice surprisingly low GFR's with serum creatinine values within normal range- particularly in elderly women (with low muscle mass).In the hospital setting, the eGFR should add an element of safety in drug dosing, in assessing the risk of IV contrast administration, and in assessing vascular risk.The NKF staging system is as follows:Normal: eGFR >90 with no kidney markersStage 1: eGFR >90 with kidney markers*Stage 2: eGFR 60-89Stage 3: eGFR 30-59Stage 4: eGFR 15-29Stage 5: eGFR <15 (usually requiring dialysis)*Markers include: Proteinuria, Hematuria, abnormal imaging-studies, or other blood or urine test abnormalities ID Date Data Source [id number] 02/04/2019 04:16:09 PM EST [facility] Name Value Range Interpretation Description Data Sup porting Code Source(s) Document(s ) Leukocytes 5.9 Normal (applies WBC Count [facility] [#/volume] in {10\\S\\3_ to non-numeric Health Unspecified uL} results) System specimen by Automated count Erythrocytes 4.62 Normal (applies RBC Count [facility] [#/volume] in {10\\S\\6_ to non-numeric Health Blood by uL} results) System Automated count Hemoglobin 10.1 Below low normal Hemoglobin, [facility] [Mass/volume] in {gm/dL} Whole Blood Health Blood System Hematocrit 32.9 % Below low normal Hematocrit, [facility] [Volume Whole Blood Health Fraction] of System Blood Erythrocyte mean 71.2 fl Below low normal MCV [facility] corpuscular Health volume [Entitic System volume] by Automated count Erythrocyte mean 21.9 pg Below low normal MCH [facility] corpuscular Health hemoglobin System [Entitic mass] by Automated count Erythrocyte mean 30.7 Below low normal M[facility]C [facility] corpuscular {gm/dL} Health hemoglobin System concentration [Mass/volume] by Automated count Erythrocyte 17.9 % Above high normal RDW [facility] distribution [facility] width [Entitic System volume] by Automated count Platelets 332 Normal (applies Platelet [facility] [#/volume] in {10\\S\\3_ to non-numeric Count Health Plasma by uL} results) System Automated count Platelet mean 10.1 fl Normal (applies MPV [facility] volume [Entitic to non-numeric Health volume] in Blood results) System by Automated count Monocytes 0.5 Normal (applies Monocyte [facility] [#/volume] in {10\\S\\3_ to non-numeric Count Health Blood by Manual uL} results) System count Eosinophils 0.1 Normal (applies Eosinophil [facility] [#/volume] in {10\\S\\3} to non-numeric Count Blood Health Blood results) System Basophils 0.03 Normal (applies Basophil [facility] [#/volume] in {10\\S\\3_ to non-numeric Count Health Blood by uL} results) System Automated count Neutrophils 3.1 Normal (applies Absolute [facility] [#/volume] in {10\\S\\3_ to non-numeric Neutrophil Health Body fluid uL} results) Count System Lymphocyte 2.2 Normal (applies Lymphocyte [facility] percent {10\\S\\3_ to non-numeric Absolute Health differential uL} results) System count (procedure) Neutrophils/100 52.2 % Normal (applies Neutrophil % [facility] leukocytes in to non-numeric Health Blood by results) System Automated count Monocytes/100 8 % Normal (applies Monocyte % [facility] leukocytes in to non-numeric Health Blood results) System Eosinophils/100 2 % Normal (applies Eosinophil % [facility] leukocytes in to non-numeric Health Unspecified results) System specimen Basophils/100 1 % Normal (applies Basophil % [facility] leukocytes in to non-numeric Health Unspecified results) System specimen by Manual count Lymphocytes 38 % Normal (applies Lymphocyte % [facility] [#/volume] in to non-numeric Health Blood by results) System Automated count ID Date Data Source [id number] 02/04/2019 04:16:09 PM EST [facility] Name Value Range Interpretation Description Data Sup porting Code Source(s) Document(s ) Sodium 136 Below low normal Sodium, Serum [facility] [Moles/volume mmol/L Health System ] in Serum or Plasma Potassium 4.5 Normal (applies Potassium, [facility] [Mass/volume] mmol/L to non-numeric Serum Health Syst em in Serum or results) Plasma Chloride 105 Normal (applies Chloride, [facility] [Moles/volume mmol/L to non-numeric Serum Health Syst em ] in Serum or results) Plasma Carbon 21.0 Below low normal CO2, Serum [facility] dioxide, mmol/L Health System total [Moles/volume ] in Serum or Plasma Glucose 79 mg/dL Normal (applies Glucose, Serum [facility] [Mass/volume] to non-numeric Health Syst em in Serum or results) Plasma ok Urea nitrogen 5 mg/dl Below low Blood Urea [facility] [Mass/volume] in normal Nitrogen, Serum System Serum or Plasma Creatinine 0.70 mg/dl Normal Creatinine, [facility] [Mass/volume] in (applies to Serum System Serum or Plasma non-numeric results) Calcium [Mass/volume] 9.6 mg/dl Normal Calcium, Total [facility] in Serum or Plasma (applies to Serum System non-numeric results) Anion gap in Serum or 10.00 mmol/L Normal Anion Gap [facility] Plasma (applies to System non-numeric results) ID Date Data Source [id number] 02/04/2019 04:16:09 PM EST [facility] Name Value Range Interpretation Description Data Sup porting Code Source(s) Document(s ) Albumin 3.9 Normal (applies Albumin, [facility] [Mass/volume] in {gm/dl} to non-numeric Serum Health Serum or Plasma results) System Bilirubin.total 0.2 Normal (applies Bilirubin, [facility] [Mass/volume] in mg/dl to non-numeric Serum Total Health Serum or Plasma results) System Aspartate 11 Normal (applies Aspartate [facility] aminotransferase {IU/L} to non-numeric Transaminase, Heal th [Enzymatic results) Serum System activity/volume] in Serum or Plasma by With P-5'-P Alanine 8 Normal (applies Alanine [facility] aminotransferase {IU/L} to non-numeric Aminotransfer Heal th [Enzymatic results) ase, Serum System activity/volume] in Serum or Plasma Alkaline 76 Normal (applies Alkaline [facility] phosphatase {IU/L} to non-numeric Phosphatase, Health isoenzymes results) Serum System [Enzymatic activity/volume] in Serum or Plasma by Heat stability DirectBilirubin 0.1 Normal (applies Direct [facility] mg/dl to non-numeric Bilirubin Health results) System TotalProtein 6.6 Normal (applies Total Protein [facility] mg/dl to non-numeric Health results) System ID Date Data Source [id number] 02/04/2019 04:16:09 PM EST [facility] Name Value Range Interpretation Description Data Sup porting Code Source(s) Document(s ) Phenobarbital 36.2 Normal (applies PHENobarbital [facility] [Mass/volume] in ug/ml to non-numeric Level, Serum Healt h Serum or Plasma results) System ID Date Data Source [id number] 02/04/2019 04:16:09 PM EST [facility] Name Value Range Interpretation Description Data Source(s ) Supporting Code Document(s ) Lipase 41 U/L Normal (applies to Lipase, Serum [facility] [Enzymatic non-numeric Health System activity/vo results) lume] in Serum or Plasma ID Date Data Source [id number] 02/04/2019 04:16:09 PM EST [facility] Name Value Range Interpretation Description Data Sup porting Code Source(s) Document(s ) Amylase 51 {IU/L} Normal (applies to Amylase, Serum [facility] [Enzymatic non-numeric Health System activity/vo results) lume] in Serum or Plasma ID Date Data Source [id number] 02/04/2019 04:16:09 PM EST [facility] Name Value Range Interpretation Description Data Sup porting Code Source(s) Document(s ) Leukocytes 5.6 Normal (applies WBC Count [facility] [#/volume] in {10\\S\\3_ to non-numeric Health Unspecified uL} results) System specimen by Automated count Erythrocytes 4.60 Normal (applies RBC Count [facility] [#/volume] in {10\\S\\6_ to non-numeric Health Blood by uL} results) System Automated count Hemoglobin 9.9 Below low normal Hemoglobin, [facility] [Mass/volume] in {gm/dL} Whole Blood Health Blood System Hematocrit 32.8 % Below low normal Hematocrit, [facility] [Volume Whole Blood Health Fraction] of System Blood Erythrocyte mean 71.3 fl Below low normal MCV [facility] corpuscular Health volume [Ent[facility] System volume] by Automated count Erythrocyte mean 21.5 pg Below low normal MCH [facility] corpuscular Health hemoglobin System [Entitic mass] by Automated count Erythrocyte mean 30.2 Below low normal MCHC [facility] corpuscular {gm/dL} Health hemoglobin System concentration [Mass/volume] by Automated count Erythrocyte 17.9 % Above high normal RDW [facility] distribution Health width [Entitic System volume] by Automated count Platelets 489 Above high normal Platelet [facility] [#/volume] in {10\\S\\3_ Count Health Plasma by uL} System Automated count verified Platelet mean 9.4 fl Normal (applies to MPV [facility] volume [Entitic non-numeric System volume] in Blood by results) Automated count Monocytes 0.4 Normal (applies to Monocyte Count [facility] [#/volume] in Blood {10\\S\\3_uL non-numeric System by Manual count } results) Eosinophils 0.2 Normal (applies to Eosinophil Count [facility] [#/volume] in Blood {10\\S\\3} non-numeric Blood System results) Basophils 0.04 Normal (applies to Basophil Count [facility] [#/volume] in Blood {10\\S\\3_uL non-numeric System by Automated count } results) Neutrophils 3.0 Normal (applies to Absolute [facility] [#/volume] in Body {10\\S\\3_uL non-numeric Neutrophil Count S ystem fluid } results) Lymphocyte percent 1.9 Normal (applies to Lymphocyte [facility] differential count {10\\S\\3_uL non-numeric Absolute System (procedure) } results) Neutrophils/100 53.9 % Normal (applies to Neutrophil % [facility] leukocytes in Blood non-numeric System by Automated count results) Monocytes/100 8 % Normal (applies to Monocyte % [facility] leukocytes in Blood non-numeric System results) Eosinophils/100 3 % Above high normal Eosinophil % [facility] leukocytes in System Unspecified specimen Basophils/100 1 % Normal (applies to Basophil % [facility] leukocytes in non-numeric System Unspecified results) specimen by Manual count Lymphocytes 35 % Normal (applies to Lymphocyte % [facility] [#/volume] in Blood non-numeric System by Automated count results) ID Date Data Source [id number] 02/04/2019 04:16:09 PM EST [facility] Name Value Range Interpretation Description Data Sup porting Code Source(s) Document(s ) Sodium 136 mmol/L Below low Sodium, [facility] [Moles/volume] normal Serum Health in Serum or System Plasma Potassium 4.9 mmol/L Normal (applies Potassium, [facility] [Mass/volume] to non-numeric Serum Health in Serum or results) System Plasma Chloride 105 mmol/L Normal (applies Chloride, [facility] [Moles/volume] to non-numeric Serum Health in Serum or results) System Plasma Carbon dioxide, 23.0 mmol/L Normal (applies CO2, Serum [facility] total to non-numeric Health [Moles/volume] results) System in Serum or Plasma TotalProtein 6.3 mg/dl Normal (applies Total [facility] to non-numeric Protein Health results) System Glucose 83 mg/dL Normal (applies Glucose, [facility] [Mass/volume] to non-numeric Serum Health in Serum or results) System Plasma Urea nitrogen 3 mg/dl Below low Blood Urea [facility] [Mass/volume] normal Nitrogen, Health in Serum or Serum System Plasma Creatinine 0.70 mg/dl Normal (applies Creatinine, [facility] [Mass/volume] to non-numeric Serum Health in Serum or results) System Plasma Alkaline 68 {IU/L} Normal (applies Alkaline [facility] phosphatase to non-numeric Phosphatase, Health isoenzymes results) Serum System [Enzymatic activity/volume ] in Serum or Plasma by Heat stability Bilirubin.total 0.3 mg/dl Normal (applies Bilirubin, [facility] [Mass/volume] to non-numeric Serum Total Health in Serum or results) System Plasma Aspartate 11 {IU/L} Normal (applies Aspartate [facility] aminotransferas to non-numeric Transaminase Health e [Enzymatic results) , Serum System activity/volume ] in Serum or Plasma by With P-5'-P Albumin 3.6 {gm/dl} Below low Albumin, [facility] [Mass/volume] normal Serum Health in Serum or System Plasma I.Phosphorus 3.8 mg/dl Normal (applies I. [facility] to non-numeric Phosphorus Health results) System Alanine 9 {IU/L} Normal (applies Alanine [facility] aminotransferas to non-numeric Aminotransfe Health e [Enzymatic results) rase, Serum System activity/volume ] in Serum or Plasma Calcium 9.4 mg/dl Normal (applies Calcium, [facility] [Mass/volume] to non-numeric Total Serum Health in Serum or results) System Plasma A/GRatio 1.33 Normal (applies A/G Ratio [facility] to non-numeric Health results) System Urate 4.6 mg/dl Normal (applies Uric Acid, [facility] [Mass/volume] to non-numeric Serum Health in Serum or results) System Plasma Anion gap in 8.00 mmol/L Normal (applies Anion Gap [facility] Serum or Plasma to non-numeric Health results) System Glomerular Greater than Normal (applies GFR [facility] filtration 60 eGFR will to non-numeric Health rate/1.73 sq provide results) System M.predicted clinicians [Volume with a more Rate/Area] in accurate Serum or Plasma indicator of by renal function Creatinine-base then the serum d formula creatinine. (CKD-EPI) The eGFR is automatically calculated from an empiric formula (endorsed by the [employer]) which incorporates age, sex, and race.Clinician s may notice surprisingly low GFR's with serum creatinine values within normal range- particularly in elderly women (with low muscle mass).In the hospital setting, the eGFR should add an element of safety in drug dosing, in assessing the risk of IV contrast administration , and in assessing vascular risk.The NKF staging system is as follows:Normal : eGFR >90 with no kidney markersStage 1: eGFR >90 with kidney markers*Stage 2: eGFR 60-89Stage 3: eGFR 30-59Stage 4: eGFR 15-29Stage 5: eGFR <15 (usually requiring dialysis)*Rodney ers include: Proteinuria, Hematuria, abnormal imaging-studie s, or other blood or urine test abnormalities ID Date Data Source [id number] 02/04/2019 04:16:09 PM [facility] System Name Value Range Interpretation Description Data Sup porting Code Source(s) Document(s ) Phenobarbital 31.7 Normal (applies PHENobarbital [facility] [Mass/volume] in ug/ml to non-numeric Level, Serum Healt h Serum or Plasma results) System ID Date Data Source [id number] 02/04/2019 04:16:09 PM EST [facility] Name Value Range Interpretation Description Data Sup porting Code Source(s) Document(s ) Leukocytes 8.5 Normal (applies WBC Count [facility] [#/volume] in {10\\S\\3_ to non-numeric Health Syst em Unspecified uL} results) specimen by Automated count ok Erythrocytes 4.75 {10\\S\\6_uL} Normal (applies RBC Count [facility] [#/volume] in Blood to non-numeric Healt h System by Automated count results) Hemoglobin 10.5 {gm/dL} Below low normal Hemoglobin, [facility] [Mass/volume] in Whole Blood Health Syst em Blood Hematocrit [Volume 34.2 % Below low normal Hematocrit, [facility] Fraction] of Blood Whole Blood Health Sy stem Erythrocyte mean 72.0 fl Below low normal MCV [facility] corpuscular volume Health Syst em [Entitic volume] by Automated count Erythrocyte mean 22.1 pg Below low normal MCH [facility] corpuscular [facility] System hemoglobin [Entitic mass] by Automated count Erythrocyte mean 30.7 {gm/dL} Below low normal [facility] corpuscular [facility] System hemoglobin concentration [Mass/volume] by Automated count Erythrocyte 18.2 % Above high RDW [facility] distribution width normal Health Syst em [Entitic volume] by Automated count Platelets 552 {10\\S\\3_uL} Above high Platelet Count [facility] [#/volume] in normal Health System Plasma by Automated count Platelet mean 9.9 fl Normal (applies MPV [facility] volume [Entitic to non-numeric Health Sy stem volume] in Blood by results) Automated count Monocytes 0.5 {10\\S\\3_uL} Normal (applies Monocyte Count [facility] [#/volume] in Blood to non-numeric Healt h System by Manual count results) Eosinophils 0.1 {10\\S\\3} Normal (applies Eosinophil [facility] [#/volume] in Blood to non-numeric Count Blood Hea lth System results) Basophils 0.04 {10\\S\\3_uL} Normal (applies Basophil Count [facility] [#/volume] in Blood to non-numeric Healt h System by Automated count results) Neutrophils 6.0 {10\\S\\3_uL} Normal (applies Absolute [facility] [#/volume] in Body to non-numeric Neutrophil Healt h System fluid results) Count Lymphocyte percent 1.9 {10\\S\\3_uL} Normal (applies Lymphocyt e [facility] differential count to non-numeric Absolute Health System (procedure) results) Neutrophils/100 70.0 % Normal (applies Neutrophil % [facility] leukocytes in Blood to non-numeric Healt h System by Automated count results) Monocytes/100 5 % Below low normal Monocyte % [facility] leukocytes in Blood Health Sys tem Eosinophils/100 2 % Normal (applies Eosinophil % [facility] leukocytes in to non-numeric Health Syst em Unspecified results) specimen Basophils/100 1 % Normal (applies Basophil % [facility] leukocytes in to non-numeric Health Syst em Unspecified results) specimen by Manual count Lymphocytes 23 % Normal (applies Lymphocyte % [facility] [#/volume] in Blood to non-numeric Healt h System by Automated count results) ID Date Data Source [id number] 02/04/2019 04:16:09 PM EST [facility] Name Value Range Interpretation Description Data Sup porting Code Source(s) Document(s ) Sodium 137 Normal (applies Sodium, Serum [facility] [Moles/volume] mmol/L to non-numeric Health in Serum or results) System Plasma Potassium 5.0 Normal (applies Potassium, [facility] [Mass/volume] mmol/L to non-numeric Serum Health in Serum or results) System Plasma Chloride 106 Normal (applies Chloride, [facility] [Moles/volume] mmol/L to non-numeric Serum Health in Serum or results) System Plasma Carbon dioxide, 21.0 Below low normal CO2, Serum [facility] total mmol/L [facility] [Moles/volume] System in Serum or Plasma TotalProtein 7.2 Normal (applies Total Protein [facility] mg/dl to non-numeric Health results) System Glucose 103 Normal (applies Glucose, Serum [facility] [Mass/volume] mg/dL to non-numeric Health in Serum or results) System Plasma ok Urea nitrogen 5 mg/dl Below low Blood Urea [facility] [Mass/volume] in Serum normal Nitrogen, Serum H ealth System or Plasma Creatinine 0.70 mg/dl Normal Creatinine, [facility] [Mass/volume] in Serum ([facility] or Plasma non-numeric results) Alkaline phosphatase 76 {IU/L} Normal Alkaline [facility] isoenzymes [Enzymatic (applies to Phosphatase, [facility] System activity/volume] in non-numeric Serum Serum or Plasma by results) Heat stability Bilirubin.total 0.1 mg/dl Below low Bilirubin, [facility] [Mass/volume] in Serum normal Serum Total [facility] or Plasma Aspartate 13 {IU/L} Normal Aspartate [facility] aminotransferase (applies to Transaminase, Health System [Enzymatic non-numeric Serum activity/volume] in results) Serum or Plasma by With P-5'-P Albumin [Mass/volume] 4.0 {gm/dl} Normal Albumin, Serum [facility] in Serum or Plasma (applies to Health Sy stem non-numeric results) I.Phosphorus 3.1 mg/dl Normal I. Phosphorus [facility] (applies to Health System non-numeric results) Alanine 11 {IU/L} Normal Alanine [facility] aminotransferase (applies to [facility]otransferas [facility] [Enzymatic non-numeric e, Serum activity/volume] in results) Serum or Plasma Calcium [Mass/volume] 10.0 mg/dl Normal Calcium, Total [facility] in Serum or Plasma (applies to Serum Health Sy stem non-numeric results) A/GRatio 1.25 Normal A/G Ratio [facility] (applies to Health System non-numeric results) Urate [Mass/volume] in 3.9 mg/dl Normal Uric Acid, [facility] Serum or Plasma (applies to Serum Health Syste m non-numeric results) Anion gap in Serum or 10.00 mmol/L Normal Anion Gap [facility] Plasma (applies to Health System non-numeric results) Glomerular filtration Greater than 60 Normal GFR [facility] rate/1.73 sq eGFR will provide (applies to Health System M.predicted [Volume clinicians with a non-numeric Rate/Area] in Serum or more accurate results) Plasma by indicator of renal Creatinine-based function then the formula (CKD-EPI) serum creatinine. The eGFR is automatically calculated from an empiric formula (endorsed by the [employer]) which incorporates age, sex, and race.Clinicians may notice surprisingly low GFR's with serum creatinine values within normal range- particularly in elderly women (with low muscle mass).In the hospital setting, the eGFR should add an element of safety in drug dosing, in assessing the risk of IV contrast administration, and in assessing vascular risk.The NKF staging system is as follows:Normal: eGFR >90 with no kidney markersStage 1: eGFR >90 with kidney markers*Stage 2: eGFR 60-89Stage 3: eGFR 30-59Stage 4: eGFR 15-29Stage 5: eGFR <15 (usually requiring dialysis)*Markers include: Proteinuria, Hematuria, abnormal imaging-studies, or other blood or urine test abnormalities ID Date Data Source [id number] 02/04/2019 04:16:09 PM EST [facility] Name Value Range Interpretation Description Data Sup porting Code Source(s) Document(s ) Creatine 82 {IU/L} Normal (applies Creatine [facility] kinase.MB to non-numeric Kinase, Serum Health Syst em [Mass/volume results) ] in Serum or Plasma ID Date Data Source [id number] 02/04/2019 04:16:09 PM EST [facility] System Name Value Range Interpretation Description Data Sup porting Code Source(s) Document(s ) Leukocytes 5.8 Normal (applies WBC Count [facility] [#/volume] in {10\\S\\3_ to non-numeric Health Unspecified uL} results) System specimen by Automated count Erythrocytes 4.56 Normal (applies RBC Count [facility] [#/volume] in {10\\S\\6_ to non-numeric Health Blood by uL} results) System Automated count Hemoglobin 10.1 Below low normal Hemoglobin, [facility] [Mass/volume] in {gm/dL} Whole Blood Health Blood System Hematocrit 33.0 % Below low normal Hematocrit, [facility] [Volume Whole Blood Health Fraction] of System Blood Erythrocyte mean 72.4 fl Below low normal MCV [facility] corpuscular Health volume [Entitic System volume] by Automated count Erythrocyte mean 22.1 pg Below low normal M[facility] corpuscular Health hemoglobin System [Entitic mass] by Automated count Erythrocyte mean 30.6 Below low normal [facility] corpuscular {gm/dL} Health hemoglobin System concentration [Mass/volume] by Automated count Erythrocyte 19.4 % Above high normal RDW [facility] distribution Health width [Entitic System volume] by Automated count Platelets 496 Above high normal Platelet [facility] [#/volume] in {10\\S\\3_ Count Health Plasma by uL} System Automated count Platelet mean 9.7 fl Normal (applies MPV [facility] volume [Entitic to non-numeric Health volume] in Blood results) System by Automated count Monocytes 0.5 Normal (applies Monocyte [facility] [#/volume] in {10\\S\\3_ to non-numeric Count Health Blood by Manual uL} results) System count Eosinophils 0.1 Normal (applies Eosinophil [facility] [#/volume] in {10\\S\\3} to non-numeric Count Blood Health Blood results) System Neutrophils 3.1 Normal (applies Absolute [facility] [#/volume] in {10\\S\\3_ to non-numeric Neutrophil Health Body fluid uL} results) Count System Basophils 0.04 Normal (applies Basophil [facility] [#/volume] in {10\\S\\3_ to non-numeric Count Health Blood by uL} results) System Automated count Lymphocyte 2.1 Normal (applies Lymphocyte [facility] percent {10\\S\\3_ to non-numeric Absolute Health differential uL} results) System count (procedure) Neutrophils/100 52.9 % Normal (applies Neutrophil % [facility] leukocytes in to non-numeric Health Blood by results) System Automated count Monocytes/100 9 % Normal (applies Monocyte % [facility] leukocytes in to non-numeric Health Blood results) System Eosinophils/100 2 % Normal (applies Eosinophil % [facility] leukocytes in to non-numeric Health Unspecified results) System specimen Basophils/100 1 % Normal (applies Basophil % [facility] leukocytes in to non-numeric Health Unspecified results) System specimen by Manual count Lymphocytes 36 % Normal (applies Lymphocyte % [facility] [#/volume] in to non-numeric Health Blood by results) System Automated count ID Date Data Source [id number] 02/04/2019 04:16:09 PM EST [facility] Name Value Range Interpretation Description Data Sup porting Code Source(s) Document(s ) Sodium 136 Below low normal Sodium, Serum [facility] [Moles/volume mmol/L Health System ] in Serum or Plasma Potassium 4.4 Normal (applies Potassium, [facility] [Mass/volume] mmol/L to non-numeric Serum Health Syst em in Serum or results) Plasma Chloride 107 Normal (applies Chloride, [facility] [Moles/volume mmol/L to non-numeric Serum Health Syst em ] in Serum or results) Plasma Carbon 20.0 Below low normal CO2, Serum [facility] dioxide, mmol/L Health System total [Moles/volume ] in Serum or Plasma Glucose 83 mg/dL Normal (applies Glucose, Serum [facility] [Mass/volume] to non-numeric Health Syst em in Serum or results) Plasma Urea nitrogen 7 mg/dl Normal (applies Blood Urea [facility] [Mass/volume] to non-numeric Nitrogen, Health Syst em in Serum or results) Serum Plasma Creatinine 0.70 Normal (applies Creatinine, [facility] [Mass/volume] mg/dl to non-numeric Serum Health Syst em in Serum or results) Plasma Calcium 9.4 Normal (applies Calcium, Total [facility] [Mass/volume] mg/dl to non-numeric Serum Health Syst em in Serum or results) Plasma Anion gap in 9.00 Normal (applies Anion Gap [facility] Serum or mmol/L to non-numeric Health System Plasma results) ID Date Data Source [id number] 02/04/2019 04:16:09 PM [facility] System Name Value Range Interpretation Description Data Sup porting Code Source(s) Document(s ) Phenobarbital 26.8 Normal (applies PHENobarbital [facility] [Mass/volume] in ug/ml to non-numeric Level, Serum Healt h Serum or Plasma results) System ID Date Data Source [id number] 02/04/2019 04:16:09 PM [facility] System Name Value Range Interpretation Description Data Sup porting Code Source(s) Document(s ) Leukocytes 5.6 Normal (applies WBC Count [facility] [#/volume] in {10\\S\\3_ to non-numeric Health Unspecified uL} results) System specimen by Automated count Erythrocytes 4.57 Normal (applies RBC Count [facility] [#/volume] in {10\\S\\6_ to non-numeric Health Blood by uL} results) System Automated count Hemoglobin 10.6 Below low normal Hemoglobin, [facility] [Mass/volume] in {gm/dL} Whole Blood Health Blood System Hematocrit 34.4 % Below low normal Hematocrit, [facility] [Volume Whole Blood Health Fraction] of System Blood Erythrocyte mean 75.3 fl Below low normal MCV [facility] corpuscular Health volume [Entitic System volume] by Automated count Erythrocyte mean 23.2 pg Below low normal MCH [facility] corpuscular Health hemoglobin System [Entitic mass] by Automated count Erythrocyte mean 30.8 Below low normal [facility] corpuscular {gm/dL} Health hemoglobin System concentration [Mass/volume] by Automated count Erythrocyte 23.7 % Above high normal RDW [facility] distribution Health width [Entitic System volume] by Automated count Platelets 391 Normal (applies Platelet [facility] [#/volume] in {10\\S\\3_ to non-numeric Count Health Plasma by uL} results) System Automated count Platelet mean 9.9 fl Normal (applies MPV [facility] volume [Entitic to non-numeric Health volume] in Blood results) System by Automated count Monocytes 0.3 Normal (applies Monocyte [facility] [#/volume] in {10\\S\\3_ to non-numeric Count Health Blood by Manual uL} results) System count Eosinophils 0.1 Normal (applies Eosinophil [facility] [#/volume] in {10\\S\\3} to non-numeric Count Blood Health Blood results) System Basophils 0.03 Normal (applies Basophil [facility] [#/volume] in {10\\S\\3_ to non-numeric Count Health Blood by uL} results) System Automated count Neutrophils 3.5 Normal (applies Absolute [facility] [#/volume] in {10\\S\\3_ to non-numeric Neutrophil Health Body fluid uL} results) Count System Lymphocyte 1.6 Normal (applies Lymphocyte [facility] percent {10\\S\\3_ to non-numeric Absolute Health differential uL} results) System count (procedure) Neutrophils/100 63.0 % Normal (applies Neutrophil % [facility] leukocytes in to non-numeric Health Blood by results) System Automated count Monocytes/100 6 % Normal (applies Monocyte % [facility] leukocytes in to non-numeric Health Blood results) System Eosinophils/100 2 % Normal (applies Eosinophil % [place] leukocytes in to non-numeric Health Unspecified results) System specimen Basophils/100 1 % Normal (applies Basophil % [facility] leukocytes in to non-numeric Health Unspecified results) System specimen by Manual count Lymphocytes 29 % Normal (applies Lymphocyte % [facility] [#/volume] in to non-numeric Health Blood by results) System Automated count ID Date Data Source [id number] 02/04/2019 04:16:09 PM EST [facility] System Name Value Range Interpretation Description Data Sup porting Code Source(s) Document(s ) hCGQuantitative Less than 5.0 Normal (applies hCG [facility] APPROXIMATE to non-numeric Quantitative Health GEST. AGE results) System APPROXIMATE HCG mIU/ML 0.2 - 1 week 5 - 50 1 - 2 weeks 50 - 500 2 - 3 weeks 100 - 5,000 3 - 4 weeks 500 - 10,000 4 - 5 weeks 1,000 - 50,000 5 - 6 weeks 10,000 - 100,000 6 - 8 weeks 15,000 - 200,000 8 - 12 weeks 10,000 - 100,000HCG levels between 5-25 mIU/mL may be indiviative of early . Correlation with other clinical findings and/or repeat of HCG quantitative testing recommened. ID Date Data Source [id number] 02/04/2019 04:16:09 PM EST [facility] System Name Value Range Interpretation Description Data Sup porting Code Source(s) Document(s ) Phenobarbital 66.5 Above upper PHENobarbital [facility] [Mass/volume] in ug/ml panic limits Level, Serum Health Serum or Plasma System okMolly Reporting|Telephone|Mali| 0 10/2011 at 1:55 PMCalled to:Tech Name:[email or web address] by:Mali 02/28/2011 / 1:47 PM ID Date Data Source [id number] 02/04/2019 04:16:09 PM EST [facility] System Name Value Range Interpretation Description Data Sup porting Code Source(s) Document(s ) AlcoholE none Normal (applies to Alcohol Ethyl, [facility] thyl,Blo detected non-numeric Blood Health System od None results) Detected ID Date Data Source [id number] 02/04/2019 04:16:09 PM EST [facility] Name Value Range Interpretation Description Data Sup porting Code Source(s) Document(s ) Levetiracetam 10.20 Normal (applies LevETIRAcetam [facility] [Mass/volume] in {mcg/mL to non-numeric Level, Serum Healt h Serum or Plasma } results) System ID Date Data Source [id number] 02/04/2019 04:16:09 PM EST [facility] Name Value Range Interpretation Description Data Sup porting Code Source(s) Document(s ) Leukocytes 6.7 Normal (applies WBC Count [facility] [#/volume] in {10\\S\\3_ to non-numeric Health Unspecified uL} results) System specimen by Automated count Erythrocytes 4.78 Normal (applies RBC Count [facility] [#/volume] in {10\\S\\6_ to non-numeric Health Blood by uL} results) System Automated count Hemoglobin 11.1 Below low normal Hemoglobin, [facility] [Mass/volume] in {gm/dL} Whole Blood Health Blood System Hematocrit 36.1 % Normal (applies Hematocrit, [facility] [Volume to non-numeric Whole Blood Health Fraction] of results) System Blood Erythrocyte mean 75.5 fl Below low normal MCV [facility] corpuscular Health volume [Entitic System volume] by Automated count Erythrocyte mean 23.2 pg Below low normal MCH [facility] corpuscular Health hemoglobin System [Entitic mass] by Automated count Erythrocyte mean 30.7 Below low normal [facility]C [facility] corpuscular {gm/dL} Health hemoglobin System concentration [Mass/volume] by Automated count Erythrocyte 23.9 % Above high normal RDW [facility] distribution Health width [Entitic System volume] by Automated count Platelets 384 Normal (applies Platelet [facility] [#/volume] in {10\\S\\3_ to non-numeric Count Health Plasma by uL} results) System Automated count Platelet mean 10.1 fl Normal (applies MPV [facility] volume [Entitic to non-numeric Health volume] in Blood results) System by Automated count Monocytes 0.4 Normal (applies Monocyte [facility] [#/volume] in {10\\S\\3_ to non-numeric Count Health Blood by Manual uL} results) System count Eosinophils 0.1 Normal (applies Eosinophil [facility] [#/volume] in {10\\S\\3} to non-numeric Count Blood Health Blood results) System Neutrophils 4.4 Normal (applies Absolute [facility] [#/volume] in {10\\S\\3_ to non-numeric Neutrophil Health Body fluid uL} results) Count System Basophils 0.03 Normal (applies Basophil [facility] [#/volume] in {10\\S\\3_ to non-numeric Count Health Blood by uL} results) System Automated count Lymphocyte 1.7 Normal (applies Lymphocyte [facility] percent {10\\S\\3_ to non-numeric Absolute Health differential uL} results) System count (procedure) Neutrophils/100 66.1 % Normal (applies Neutrophil % [facility] leukocytes in to non-numeric Health Blood by results) System Automated count Monocytes/100 6 % Normal (applies Monocyte % [facility] leukocytes in to non-numeric Health Blood results) System Eosinophils/100 1 % Below low normal Eosinophil % [facility] leukocytes in Health Unspecified System specimen Basophils/100 1 % Normal (applies Basophil % [facility] leukocytes in to non-numeric Health Unspecified results) System specimen by Manual count Lymphocytes 26 % Normal (applies Lymphocyte % [facility] [#/volume] in to non-numeric Health Blood by results) System Automated count ID Date Data Source [id number] 02/04/2019 04:16:09 PM EST [facility] Name Value Range Interpretation Description Data Sup porting Code Source(s) Document(s ) Phenobarbital 65.4 Above upper PHENobarbital [facility] [Mass/volume] in ug/ml panic limits Level, Serum Health Serum or Plasma System ID Date Data Source [id number] 02/04/2019 04:16:09 PM EST [facility] Name Value Range Interpretation Description Data Sup porting Code Source(s) Document(s ) Sodium 139 Normal (applies Sodium, Serum [facility] [Moles/volume mmol/L to non-numeric Health Syst em ] in Serum or results) Plasma Potassium 4.1 Normal (applies Potassium, [facility] [Mass/volume] mmol/L to non-numeric Serum Health Syst em in Serum or results) Plasma Chloride 107 Normal (applies Chloride, [facility] [Moles/volume mmol/L to non-numeric Serum Health Syst em ] in Serum or results) Plasma Carbon 21.0 Below low normal CO2, Serum [facility] dioxide, mmol/L Health System total [Moles/volume ] in Serum or Plasma OK TotalProtein 6.6 mg/dl Normal (applies to Total Protein [facility] non-numeric System results) Glucose 84 mg/dL Normal (applies to Glucose, Serum [facility] [Mass/volume] in non-numeric System Serum or Plasma results) OK Urea nitrogen 7 mg/dl Normal (applies Blood Urea [facility] [Mass/volume] in to non-numeric Nitrogen, [facility] Serum or Plasma results) Serum Creatinine 0.70 mg/dl Normal (applies Creatinine, [facility] [Mass/volume] in to non-numeric Serum [facility] Serum or Plasma results) Alkaline phosphatase 85 {IU/L} Normal (applies Alkaline [facility] isoenzymes [Enzymatic to non-numeric Phosphatase, [facility] System activity/volume] in results) Serum Serum or Plasma by Heat stability Bilirubin.total 0.2 mg/dl Normal (applies Bilirubin, [facility] [Mass/volume] in to non-numeric Serum Total [facility] System Serum or Plasma results) Aspartate 16 {IU/L} Normal (applies Aspartate [facility] aminotransferase to non-numeric Transaminase, [facility] System [Enzymatic results) Serum activity/volume] in Serum or Plasma by With P-5'-P Albumin [Mass/volume] 3.8 {gm/dl} Below low Albumin, Serum [facility] in Serum or Plasma normal Health Syst em I.Phosphorus 3.5 mg/dl Normal (applies I. Phosphorus [facility] to non-numeric Health System results) Alanine 13 {IU/L} Normal (applies Alanine [facility] aminotransferase to non-numeric Aminotransfera [facility] System [Enzymatic results) se, Serum activity/volume] in Serum or Plasma Calcium [Mass/volume] 9.3 mg/dl Normal (applies Calcium, Tot al [facility] in Serum or Plasma to non-numeric Serum Health System results) A/GRatio 1.36 Normal (applies A/G Ratio [facility] to non-numeric Health System results) Urate [Mass/volume] 5.3 mg/dl Normal (applies Uric Acid, [facility] in Serum or Plasma to non-numeric Serum Health System results) Anion gap in Serum or 11.00 mmol/L Normal (applies Anion Gap [facility] Plasma to non-numeric Health System results) Glomerular filtration Greater than 60 Normal (applies GFR [facility] rate/1.73 sq eGFR will provide to non-numeric Heal th System M.predicted [Volume clinicians with a results) Rate/Area] in Serum more accurate or Plasma by indicator of Creatinine-based renal function formula (CKD-EPI) then the serum creatinine. The eGFR is automatically calculated from an empiric formula (endorsed by the [employer]) which incorporates age, sex, and race.Clinicians may notice surprisingly low GFR's with serum creatinine values within normal range- particularly in elderly women (with low muscle mass).In the hospital setting, the eGFR should add an element of safety in drug dosing, in assessing the risk of IV contrast administration, and in assessing vascular risk.The NKF staging system is as follows:Normal: eGFR >90 with no kidney markersStage 1: eGFR >90 with kidney markers*Stage 2: eGFR 60-89Stage 3: eGFR 30-59Stage 4: eGFR 15-29Stage 5: eGFR <15 (usually requiring dialysis)*Markers include: Proteinuria, Hematuria, abnormal imaging-studies, or other blood or urine test abnormalities ID Date Data Source [id number] 02/04/2019 04:16:09 PM EST [facility] System Name Value Range Interpretation Description Data Sup porting Code Source(s) Document(s ) Creatine 85 {IU/L} Normal (applies Creatine [facility] kinase.MB to non-numeric Kinase, Serum Health Syst em [Mass/volume results) ] in Serum or Plasma ID Date Data Source [id number] 02/04/2019 04:16:09 PM EST [facility] System Name Value Range Interpretation Description Data Sup porting Code Source(s) Document(s ) Leukocytes 6.0 Normal (applies WBC Count [facility] [#/volume] in {10\\S\\3_ to non-numeric Health Unspecified uL} results) System specimen by Automated count Erythrocytes 4.93 Normal (applies RBC Count [facility] [#/volume] in {10\\S\\6_ to non-numeric Health Blood by uL} results) System Automated count Hemoglobin 11.4 Below low normal Hemoglobin, [facility] [Mass/volume] in {gm/dL} Whole Blood Health Blood System Hematocrit 37.3 % Normal (applies Hematocrit, [facility] [Volume to non-numeric Whole Blood Health Fraction] of results) System Blood Erythrocyte mean 75.7 fl Below low normal MCV [facility] corpuscular Health volume [Entitic System volume] by Automated count Erythrocyte mean 23.1 pg Below low normal MCH [facility] corpuscular Health hemoglobin System [Entitic mass] by Automated count Erythrocyte mean 30.6 Below low normal [facility] corpuscular {gm/dL} Health hemoglobin System concentration [Mass/volume] by Automated count Erythrocyte 23.9 % Above high normal RDW [facility] distribution Health width [Entitic System volume] by Automated count Platelets 375 Normal (applies Platelet [facility] [#/volume] in {10\\S\\3_ to non-numeric Count Health Plasma by uL} results) System Automated count Platelet mean 10.3 fl Normal (applies MPV [facility] volume [Entitic to non-numeric Health volume] in Blood results) System by Automated count Monocytes 0.5 Normal (applies Monocyte [facility] [#/volume] in {10\\S\\3_ to non-numeric Count Health Blood by Manual uL} results) System count Eosinophils 0.1 Normal (applies Eosinophil [facility] [#/volume] in {10\\S\\3} to non-numeric Count Blood Health Blood results) System Neutrophils 3.0 Normal (applies Absolute [facility] [#/volume] in {10\\S\\3_ to non-numeric Neutrophil Health Body fluid uL} results) Count System Basophils 0.03 Normal (applies Basophil [facility] [#/volume] in {10\\S\\3_ to non-numeric Count Health Blood by uL} results) System Automated count Lymphocyte 2.4 Normal (applies Lymphocyte [facility] percent {10\\S\\3_ to non-numeric Absolute Health differential uL} results) System count (procedure) Neutrophils/100 50.1 % Normal (applies Neutrophil % [place] leukocytes in to non-numeric Health Blood by results) System Automated count Monocytes/100 9 % Normal (applies Monocyte % [facility] leukocytes in to non-numeric Health Blood results) System Eosinophils/100 2 % Normal (applies Eosinophil % [place] [facility] leukocytes in to non-numeric Health Unspecified results) System specimen Basophils/100 1 % Normal (applies Basophil % [facility] leukocytes in to non-numeric Health Unspecified results) System specimen by Manual count Lymphocytes 39 % Normal (applies Lymphocyte % [facility] [#/volume] in to non-numeric Health Blood by results) System Automated count ID Date Data Source [id number] 02/04/2019 04:16:09 PM EST [facility] Name Value Range Interpretation Description Data Sup porting Code Source(s) Document(s ) Sodium 139 Normal (applies Sodium, Serum [facility] [Moles/volume mmol/L to non-numeric Health Syst em ] in Serum or results) Plasma Potassium 4.3 Normal (applies Potassium, [facility] [Mass/volume] mmol/L to non-numeric Serum Health Syst em in Serum or results) Plasma Chloride 109 Above high normal Chloride, [facility] [Moles/volume mmol/L Serum Health System ] in Serum or Plasma Carbon 20.0 Below low normal CO2, Serum [facility] dioxide, mmol/L Health System total [Moles/volume ] in Serum or Plasma Glucose 96 mg/dL Normal (applies Glucose, Serum [facility] [Mass/volume] to non-numeric Health Syst em in Serum or results) Plasma ok Urea nitrogen 9 mg/dl Normal (applies to Blood Urea [facility] [Mass/volume] in non-numeric Nitrogen, Serum Healt h System Serum or Plasma results) Creatinine 0.70 mg/dl Normal (applies to Creatinine, [facility] [Mass/volume] in non-numeric Serum Health Syst em Serum or Plasma results) Calcium 9.7 mg/dl Normal (applies to Calcium, Total [facility] [Mass/volume] in non-numeric Serum Health Syst em Serum or Plasma results) Anion gap in Serum 10.00 mmol/L Normal (applies to Anion Gap [facility] or Plasma non-numeric Health System results) ID Date Data Source [id number] 02/04/2019 04:16:09 PM EST [facility] System Name Value Range Interpretation Description Data Sup porting Code Source(s) Document(s ) Phenobarbital 51.9 Above upper PHENobarbital [facility] [Mass/volume] in ug/ml panic limits Level, Serum Health Serum or Plasma System OKResult Reporting|Telephone|| 02/20 at 10:29 AMCalled to:Tech Name:[email or web address] by: 03/02/2011 / 10:21 AM ID Date Data Source [id number] 02/04/2019 04:16:09 PM EST [facility] System Name Value Range Interpretation Description Data Sup porting Code Source(s) Document(s ) Prothrombintim 11.40 Normal (applies Prothrombin [facility](PT) to non-numeric time (PT) Health System results) INR in Blood 1.07 Below low normal INR Result [facility] by Coagulation {Ratio} Health System assay Normal = 0.7-1.1Therapeutic = 2.0-3.0Mec hanical Heart = 3.0-4.5 ID Date Data Source [id number] 02/04/2019 04:16:09 PM EST [facility] System Name Value Range Interpretation Description Data Sup porting Code Source(s) Document(s ) Leukocytes 11.0 Above high normal WBC Count [facility] [#/volume] in {10\\S\\3_ Health System Unspecified uL} specimen by Automated count [place] Erythrocytes 4.73 {10\\S\\6_uL} Normal (applies RBC Count [facility] [#/volume] in Blood [facility]-numeric [facility] count results) Hemoglobin 11.2 {gm/dL} Below low normal Hemoglobin, [facility] [Mass/volume] in Whole Blood Health Syst em Blood Hematocrit [Volume 35.7 % Below low normal Hematocrit, [facility] Fraction] of Blood Whole Blood Health Sy stem Erythrocyte mean 75.5 fl Below low normal MCV [facility] corpuscular volume Health Syst em [Entitic volume] by Automated count Erythrocyte mean 23.7 pg Below low normal [facility] System hemoglobin [Entitic mass] by Automated count Erythrocyte mean 31.4 {gm/dL} Below low normal [facility] corpuscular Health System hemoglobin concentration [Mass/volume] by Automated count Erythrocyte 23.9 % Above high RDW [facility] distribution width normal Health Syst em [Entitic volume] by Automated count Platelets 399 {10\\S\\3_uL} Normal (applies Platelet Count [facility] [#/volume] in to non-numeric Health Syst em Plasma by Automated results) count Platelet mean 9.8 fl Normal (applies MPV [facility] volume [Entitic to non-numeric Health Sy stem volume] in Blood by results) Automated count Monocytes 0.7 {10\\S\\3_uL} Normal (applies Monocyte Count [facility] [#/volume] in Blood to non-numeric Healt h System by Manual count results) Eosinophils 0.1 {10\\S\\3} Normal (applies Eosinophil [facility] [#/volume] in Blood to non-numeric Count Blood Hea lth System results) Neutrophils 7.5 {10\\S\\3_uL} Normal (applies Absolute [facility] [#/volume] in Body to non-numeric Neutrophil Healt h System fluid results) Count Basophils 0.05 {10\\S\\3_uL} Normal (applies Basophil Count [facility] [#/volume] in Blood to non-numeric Healt h System by Automated count results) Lymphocyte percent 2.7 {10\\S\\3_uL} Normal (applies Lymphocyt e [facility] differential count to non-numeric Absolute Health System (procedure) results) Neutrophils/100 67.5 % Normal (applies Neutrophil % [facility] leukocytes in Blood to non-numeric Healt h System by Automated count results) Monocytes/100 6 % Normal (applies Monocyte % [facility] leukocytes in Blood to non-numeric Healt h System results) Eosinophils/100 1 % Below low normal Eosinophil % [facility] leukocytes in Health System Unspecified specimen Basophils/100 1 % Normal (applies Basophil % [facility] leukocytes in to non-numeric Health Syst em Unspecified results) specimen by Manual count Lymphocytes 25 % Normal (applies Lymphocyte % [facility] [#/volume] in Blood to non-numeric Healt h System by Automated count results) ID Date Data Source [id number] 02/04/2019 04:16:09 PM EST [facility] System Name Value Range Interpretation Description Data Sup porting Code Source(s) Document(s ) hCGQuantitative Less than 5.0 Normal (applies hCG [facility] APPROXIMATE to non-numeric Quantitative Health GEST. AGE results) System APPROXIMATE HCG mIU/ML 0.2 - 1 week 5 - 50 1 - 2 weeks 50 - 500 2 - 3 weeks 100 - 5,000 3 - 4 weeks 500 - 10,000 4 - 5 weeks 1,000 - 50,000 5 - 6 weeks 10,000 - 100,000 6 - 8 weeks 15,000 - 200,000 8 - 12 weeks 10,000 - 100,000HCG levels between 5-25 mIU/mL may be indiviative of early . Correlation with other clinical findings and/or repeat of HCG quantitative testing recommened. ID Date Data Source [id number] 02/04/2019 04:16:09 PM EST [facility] System Name Value Range Interpretation Description Data Sup porting Code Source(s) Document(s ) Sodium 137 Normal (applies Sodium, Serum [facility] [Moles/volume mmol/L to non-numeric Health Syst em ] in Serum or results) Plasma Potassium 3.7 Normal (applies Potassium, [facility] [Mass/volume] mmol/L to non-numeric Serum Health Syst em in Serum or results) Plasma Chloride 106 Normal (applies Chloride, [facility] [Moles/volume mmol/L to non-numeric Serum Health Syst em ] in Serum or results) Plasma Carbon 20.0 Below low normal CO2, Serum [facility] dioxide, mmol/L Health System total [Moles/volume ] in Serum or Plasma Glucose 90 mg/dL Normal (applies Glucose, Serum [facility] [Mass/volume] to non-numeric Health Syst em in Serum or results) Plasma Urea nitrogen 13 mg/dl Normal (applies Blood Urea [facility] [Mass/volume] to non-numeric Nitrogen, Health Syst em in Serum or results) Serum Plasma Creatinine 0.70 Normal (applies Creatinine, [facility] [Mass/volume] mg/dl to non-numeric Serum Health Syst em in Serum or results) Plasma Calcium 9.7 Normal (applies Calcium, Total [facility] [Mass/volume] mg/dl to non-numeric Serum Health Syst em in Serum or results) Plasma Anion gap in 11.00 Normal (applies Anion Gap [facility] Serum or mmol/L to non-numeric Health System Plasma results) ID Date Data Source [id number] 02/04/2019 04:16:09 PM EST [facility] System Name Value Range Interpretation Description Data Sup porting Code Source(s) Document(s ) Albumin 4.1 Normal (applies Albumin, [facility] [Mass/volume] in {gm/dl} to non-numeric Serum Health Serum or Plasma results) System Bilirubin.total 0.1 Below low normal Bilirubin, [facility] [Mass/volume] in mg/dl Serum Total Health Serum or Plasma System Aspartate 18 Normal (applies Aspartate [facility] aminotransferase {IU/L} to non-numeric Transaminase, Heal th [Enzymatic results) Serum System activity/volume] in Serum or Plasma by With P-5'-P Alanine 17 Normal (applies Alanine [facility] aminotransferase {IU/L} to non-numeric Aminotransfer Heal th [Enzymatic results) ase, Serum System activity/volume] in Serum or Plasma Alkaline 84 Normal (applies Alkaline [facility] phosphatase {IU/L} to non-numeric Phosphatase, Health isoenzymes results) Serum System [Enzymatic activity/volume] in Serum or Plasma by Heat stability DirectBilirubin 0.1 Normal (applies Direct [facility] mg/dl to non-numeric Bilirubin Health results) System TotalProtein 7.1 Normal (applies Total Protein [facility] mg/dl to non-numeric Health results) System ID Date Data Source [id number] 02/04/2019 04:16:09 PM EST [facility] System Name Value Range Interpretation Description Data Sup porting Code Source(s) Document(s ) Phenobarbital 50.4 Above upper PHENobarbital [facility] [Mass/volume] in ug/ml panic limits Level, Serum Health Serum or Plasma System Result Reporting|Telephone|shavel| 02/20 at 2:40 AMCalled to:Tech Name:[email or web address] by: 03/08/2011 / 2:39 AM ID Date Data Source [id number] 02/04/2019 04:16:09 PM EST [facility] System Name Value Range Interpretation Description Data Sup porting Code Source(s) Document(s ) AlcoholE non-detected Normal (applies to Alcohol Ethyl, [facility] thyl,Blo None non-numeric Blood Health System od Detected results) ID Date Data Source [id number] 02/04/2019 04:16:09 PM EST [facility] Name Value Range Interpretation Description Data Sup porting Code Source(s) Document(s ) Acetaminophen Less than Below lower Acetaminophen [facility] [Mass/volume] 1.0 Result panic limits Level, Serum Health in Serum or Reporting| System Plasma Telephone| shavelle| 03/08/2011 at 2:40 AMCalled to:Tech Name:darion Tyshawn lu by: 03/08/2011 / 2:39 AM ID Date Data Source [id number] 02/04/2019 04:16:09 PM EST [facility] Name Value Range Interpretation Description Data Sup porting Code Source(s) Document(s ) Acetylsalicylate Less Normal (applies Salicylate [facility] [Mass/volume] in than to non-numeric Level, Serum Healt h Serum or Plasma 5.0 results) System ID Date Data Source [id number] 02/04/2019 04:16:09 PM EST [facility] Name Value Range Interpretation Description Data Sup porting Code Source(s) Document(s ) Leukocytes 6.8 Normal (applies WBC Count [facility] [#/volume] in {10\\S\\3_ to non-numeric Health Unspecified uL} results) System specimen by Automated count Erythrocytes 4.55 Normal (applies RBC Count [facility] [#/volume] in {10\\S\\6_ to non-numeric Health Blood by uL} results) System Automated count Hemoglobin 10.9 Below low normal Hemoglobin, [facility] [Mass/volume] in {gm/dL} Whole Blood Health Blood System Hematocrit 35.4 % Below low normal Hematocrit, [facility] [Volume Whole Blood Health Fraction] of System Blood Erythrocyte mean 77.8 fl Below low normal MCV [facility] corpuscular Health volume [Entitic System volume] by Automated count Erythrocyte mean 24.0 pg Below low normal MCH [facility] corpuscular Health hemoglobin System [Entitic mass] by Automated count Erythrocyte mean 30.8 Below low normal MCHC [facility] corpuscular {gm/dL} Health hemoglobin System concentration [Mass/volume] by Automated count Erythrocyte 53.7 % Above high normal RDW [facility] distribution Health width [Entitic System volume] by Automated count Platelets 492 Above high normal Platelet [facility] [#/volume] in {10\\S\\3_ Count Health Plasma by uL} System Automated count Platelet mean 8.8 fl Normal (applies MPV [facility] volume [Entitic to non-numeric Health volume] in Blood results) System by Automated count ID Date Data Source [id number] 02/04/2019 04:16:09 PM EST [facility] Name Value Range Interpretation Description Data Sup porting Code Source(s) Document(s ) Sodium 140 Normal (applies Sodium, Serum [facility] [Moles/volume mmol/L to non-numeric Health Syst em ] in Serum or results) Plasma Potassium 4.1 Normal (applies Potassium, [facility] [Mass/volume] mmol/L to non-numeric Serum Health Syst em in Serum or results) Plasma Chloride 109 Above high normal Chloride, [facility] [Moles/volume mmol/L Serum Health System ] in Serum or Plasma Carbon 23.0 Normal (applies CO2, Serum [facility] dioxide, mmol/L to non-numeric Health System total results) [Moles/volume ] in Serum or Plasma Glucose 102 Normal (applies Glucose, Serum [facility] [Mass/volume] mg/dL to non-numeric Health Syst em in Serum or results) Plasma Urea nitrogen 7 mg/dl Normal (applies Blood Urea [facility] [Mass/volume] to non-numeric Nitrogen, Health Syst em in Serum or results) Serum Plasma Creatinine 0.70 Normal (applies Creatinine, [facility] [Mass/volume] mg/dl to non-numeric Serum Health Syst em in Serum or results) Plasma Calcium 9.3 Normal (applies Calcium, Total [facility] [Mass/volume] mg/dl to non-numeric Serum Health Syst em in Serum or results) Plasma Anion gap in 8.00 Normal (applies Anion Gap [facility] Serum or mmol/L to non-numeric Health System Plasma results) ID Date Data Source [id number] 02/04/2019 04:16:09 PM EST [facility] Name Value Range Interpretation Description Data Sup porting Code Source(s) Document(s ) Albumin 3.7 Below low normal Albumin, [facility] [Mass/volume] in {gm/dl} Serum Health Serum or Plasma System Bilirubin.total 0.1 Below low normal Bilirubin, [facility] [Mass/volume] in mg/dl Serum Total Health Serum or Plasma System Aspartate 13 Normal (applies Aspartate [facility] aminotransferase {IU/L} to non-numeric Transaminase, Heal th [Enzymatic results) Serum System activity/volume] in Serum or Plasma by With P-5'-P ok Alanine 12 {IU/L} Normal (applies Alanine [facility] aminotransferase to non-numeric Aminotransferase, Health System [Enzymatic results) Serum activity/volume] in Serum or Plasma Alkaline phosphatase 71 {IU/L} Normal (applies Alkaline P hosphatase, [facility] isoenzymes [Enzymatic to non-numeric Serum Hea lth System activity/volume] in results) Serum or Plasma by Heat stability DirectBilirubin Less than Normal (applies Direct Bilirubin [facility] 0.1 to non-numeric Health System results) TotalProtein 6.5 mg/dl Normal (applies Total Protein [facility] to non-numeric [facility] System results) ID Date Data Source [id number] 02/04/2019 04:16:09 PM EST [facility] Name Value Range Interpretation Description Data Sup porting Code Source(s) Document(s ) Phenobarbital 43.2 Above upper PHENobarbital [facility] [Mass/volume] in ug/ml panic limits Level, Serum Health Serum or Plasma System Result Reporting|Telephone|nurse dayana| 04/21 at 6:49 AMCalled to:Tech Name:Tone by: 05/13/2011 / 6:48 AM ID Date Data Source [id number] 02/04/2019 04:16:09 PM EST [facility] Name Value Range Interpretation Description Data Sup porting Code Source(s) Document(s ) Creatine 49 {IU/L} Normal (applies Creatine [facility] kinase.MB to non-numeric Kinase, Serum Health Syst em [Mass/volume results) ] in Serum or Plasma ID Date Data Source [id number] 02/04/2019 04:16:09 PM EST [facility] Name Value Range Interpretation Description Data Sup porting Code Source(s) Document(s ) aPTT in Blood 20.8 Below low normal Activated [facility] by Coagulation {Seconds Partial Health assay } Thromboplastin System Time Result Reporting|Telephone|Lico Alvarenga| 06/09/2011 at 10:37 AMCalled to:Tech Name:aylaorRfawad by:Lico medrano 06/09/2011 / 10:36 AM ID Date Data Source [id number] 02/04/2019 04:16:09 PM EST [facility] Name Value Range Interpretation Description Data Sup porting Code Source(s) Document(s ) Prothrombintim 10.40 Normal (applies Prothrombin [facility] e(PT) to non-numeric time (PT) Health System results) INR in Blood 0.97 Normal (applies INR Result [facility] by Coagulation {Ratio} to non-numeric Health Sys tem assay results) Normal = 0.7-1.1Therapeutic = 2.0-3.0Mec hanical Heart = 3.0-4.5 ID Date Data Source [id number] 02/04/2019 04:16:09 PM EST [facility] Name Value Range Interpretation Description Data Sup porting Code Source(s) Document(s ) Leukocytes Cancelled WBC Count [facility] [#/volume] in Health Unspecified System specimen by Automated count Erythrocytes Cancelled RBC Count [facility] [#/volume] in Health Blood by System Automated count Hemoglobin Cancelled Hemoglobin, [facility] [Mass/volume] specimen Whole Blood Health in Blood clotted System reported to Lico Villarreal RN Hematocrit Cancelled Hematocrit, [facility] [Volume Whole Blood Health Fraction] of System Blood Erythrocyte Cancelled MCV [facility] mean Health corpuscular System volume [Entitic volume] by Automated count Erythrocyte Cancelled MCH [facility] mean Health corpuscular System hemoglobin [Entitic mass] by Automated count Erythrocyte Cancelled MCHC [facility] mean Health corpuscular System hemoglobin concentration [Mass/volume] by Automated count Erythrocyte Cancelled RDW [facility] distribution Health width [Entitic System volume] by Automated count Platelets Cancelled Platelet [facility] [#/volume] in Count Health Plasma by System Automated count Platelet mean Cancelled MPV [facility] volume [Entitic Health volume] in System Blood by Automated count Monocytes Cancelled Monocyte [facility] [#/volume] in Count Health Blood by Manual System count Eosinophils Cancelled Eosinophil [facility] [#/volume] in Count Blood Health Blood System Neutrophils Cancelled Absolute [facility] [#/volume] in Neutrophil Health Body fluid Count System Basophils Cancelled Basophil [facility] [#/volume] in Count Health Blood by System Automated count Lymphocyte Cancelled Lymphocyte [facility] percent Absolute Health differential System count (procedure) Neutrophils/100 Cancelled Neutrophil % [facility] leukocytes in Health Blood by System Automated count Monocytes/100 Cancelled Monocyte % [facility] leukocytes in Health Blood System Eosinophils/100 Cancelled Eosinophil % [facility] leukocytes in Health Unspecified System specimen Basophils/100 Cancelled Basophil % [facility] leukocytes in Health Unspecified System specimen by Manual count Lymphocytes Cancelled Lymphocyte % [facility] [#/volume] in Health Blood by System Automated count ID Date Data Source [id number] 02/04/2019 04:16:09 PM EST [facility] Name Value Range Interpretation Description Data Sup porting Code Source(s) Document(s ) hCGQuantitative Less than Normal (applies hCG [facility] 5.0 Negative to non-numeric Quantitative Health = <5 results) System mIU/mLAPPROX IMATE GEST. AGE APPROXIMATE HCG mIU/ML 0.2 - 1 week 5 - 50 1 - 2 weeks 50 - 500 2 - 3 weeks 100 - 5,000 3 - 4 weeks 500 - 10,000 4 - 5 weeks 1,000 - 50,000 5 - 6 weeks 10,000 - 100,000 6 - 8 weeks 15,000 - 200,000 8 - 12 weeks 10,000 - 100,000HCG levels between 5-25 mIU/mL may be indicative of early . Correlation with other clinical findings and/or repeat of HCG quantitative testing recommened.R kemi Reporting|Gomez feliz|Lico Alvarenga| 06/09/2011 at 10:37 AMCalled to:Merry Name:arjun Orozco ck by:Lico Alvarenga 06/09/2011 / 10:36 AM ID Date Data Source [id number] 02/04/2019 04:16:09 PM EST [facility] Name Value Range Interpretation Description Data Sup porting Code Source(s) Document(s ) Sodium 139 Normal (applies Sodium, Serum [facility] [Moles/volume] mmol/L to non-numeric Health in Serum or results) System Plasma Potassium 4.3 Normal (applies Potassium, [facility] [Mass/volume] mmol/L to non-numeric Serum Health in Serum or results) System Plasma Chloride 107 Normal (applies Chloride, [facility] [Moles/volume] mmol/L to non-numeric Serum Health in Serum or results) System Plasma Carbon dioxide, 22.0 Normal (applies CO2, Serum [facility] total mmol/L to non-numeric Health [Moles/volume] results) System in Serum or Plasma TotalProtein 6.8 Normal (applies Total Protein [facility] mg/dl to non-numeric Health results) System Glucose 85 mg/dL Normal (applies Glucose, Serum [facility] [Mass/volume] to non-numeric Health in Serum or results) System Plasma ok Urea nitrogen 10 mg/dl Normal (applies Blood Urea [facility] [Mass/volume] in to non-numeric Nitrogen, Health S ystem Serum or Plasma results) Serum Creatinine 0.70 mg/dl Normal (applies Creatinine, [facility] [Mass/volume] in to non-numeric Serum Health S ystem Serum or Plasma results) Alkaline phosphatase 72 {IU/L} Normal (applies Alkaline [facility] isoenzymes [Enzymatic to non-numeric Phosphatase, Health System activity/volume] in results) Serum Serum or Plasma by Heat stability Bilirubin.total 0.2 mg/dl Normal (applies Bilirubin, [facility] [Mass/volume] in to non-numeric Serum Total [facility] System Serum or Plasma results) Aspartate 9 {IU/L} Normal (applies Aspartate [facility] aminotransferase to non-numeric Transaminase, [facility] [Enzymatic results) Serum activity/volume] in Serum or Plasma by With P-5'-P Albumin [Mass/volume] 3.9 {gm/dl} Normal (applies Albumin, S barrie [facility] in Serum or Plasma to non-numeric Health System results) I.Phosphorus 3.2 mg/dl Normal (applies I. Phosphorus [facility] to non-numeric Health System results) Alanine 8 {IU/L} Normal (applies Alanine [facility] aminotransferase to non-numeric Aminotransfera [facility] [Enzymatic results) se, Serum activity/volume] in Serum or Plasma Calcium [Mass/volume] 9.3 mg/dl Normal (applies Calcium, Tot al [facility] in Serum or Plasma to non-numeric Serum Health System results) A/GRatio 1.34 Normal (applies A/G Ratio [facility] to non-numeric Health System results) Urate [Mass/volume] 3.3 mg/dl Normal (applies Uric Acid, [facility] in Serum or Plasma to non-numeric Serum Health System results) Anion gap in Serum or 10.00 mmol/L Normal (applies Anion Gap [facility] Plasma to non-numeric Health System results) Glomerular filtration Greater than 60 Normal (applies GFR [facility] rate/1.73 sq eGFR will provide to non-numeric [facility] System M.predicted [Volume clinicians with a results) Rate/Area] in Serum more accurate or Plasma by indicator of Creatinine-based renal function formula (CKD-EPI) then the serum creatinine. The eGFR is automatically calculated from an empiric formula (endorsed by the [employer]) which incorporates age, sex, and race.Clinicians may notice surprisingly low GFR's with serum creatinine valueswithin normal range- particularly in elderly women (with low muscle mass).In the hospital setting, the eGFR should add an element of safety in drug dosing, in assessing the risk of IV contrast administration, and in assessing vascular risk.The NKF staging system is as follows:Normal: eGFR >90 with no kidney markersStage 1: eGFR >90 with kidney markers*Stage 2: eGFR 60-89Stage 3: eGFR 30-59Stage 4: eGFR 15-29Stage 5: eGFR <15 (usually requiring dialysis)*Markers include: Proteinuria, Hematuria, abnormal imaging-studies, or other blood or urine test abnormalities ID Date Data Source [id number] 02/04/2019 04:16:09 PM EST [facility] Name Value Range Interpretation Description Data Sup porting Code Source(s) Document(s ) Phenobarbital 47.8 Above upper PHENobarbital [facility] [Mass/volume] in ug/ml panic limits Level, Serum Health Serum or Plasma System Result Reporting|Telephone|Lico Alvarenga| 06/09/2011 at 10:37 AMCalled to:Tech Name:Kathy by:Lico medrano 06/09/2011 / 10:36 AM ID Date Data Source [id number] 02/04/2019 04:16:09 PM EST [facility] Name Value Range Interpretation Description Data Sup porting Code Source(s) Document(s ) Creatine 78 {IU/L} Normal (applies Creatine [facility] kinase.MB to non-numeric Kinase, Serum Health Syst em [Mass/volume results) ] in Serum or Plasma Result Reporting|Telephone|Lico Alvarenga| 06/09/2011 at 10:37 AMCalled to:Tech Name:Augustinaalejo by:Lico medrano 06/09/2011 / 10:36 AM ID Date Data Source [id number] 02/04/2019 04:16:09 PM EST [facility] Name Value Range Interpretation Description Data Sup porting Code Source(s) Document(s ) Levetiracetam 7.60 Normal (applies LevETIRAcetam [facility] [Mass/volume] in to non-numeric Level, Serum Healt h Serum or Plasma results) System ID Date Data Source [id number] 02/04/2019 04:16:09 PM EST [facility] Name Value Range Interpretation Description Data Sup porting Code Source(s) Document(s ) Leukocytes 7.6 Normal (applies WBC Count [facility] [#/volume] in {10\\S\\3_ to non-numeric Health Unspecified uL} results) System specimen by Automated count Erythrocytes 4.55 Normal (applies RBC Count [facility] [#/volume] in {10\\S\\6_ to non-numeric Health Blood by uL} results) System Automated count Hemoglobin 10.6 Below low normal Hemoglobin, [facility] [Mass/volume] in {gm/dL} Whole Blood Health Blood System Hematocrit 34.1 % Below low normal Hematocrit, [facility] [Volume Whole Blood Health Fraction] of System Blood Erythrocyte mean 74.9 fl Below low normal MCV [facility] corpuscular Health volume [Entitic System volume] by Automated count Erythrocyte mean 23.3 pg Below low normal MCH [facility] corpuscular Health hemoglobin System [Entitic mass] by Automated count Erythrocyte mean 31.1 Below low normal MCHC [facility] corpuscular {gm/dL} Health hemoglobin System concentration [Mass/volume] by Automated count Erythrocyte 17.3 % Above high normal RDW [facility] distribution Health width [Entitic System volume] by Automated count Platelets 502 Above high normal Platelet [facility] [#/volume] in {10\\S\\3_ Count Health Plasma by uL} System Automated count Platelet mean 9.8 fl Normal (applies MPV [facility] volume [Entitic to non-numeric Health volume] in Blood results) System by Automated count ID Date Data Source [id number] 02/04/2019 04:16:09 PM EST [facility] Name Value Range Interpretation Description Data Sup porting Code Source(s) Document(s ) Sodium 138 Normal (applies Sodium, Serum [facility] [Moles/volume mmol/L to non-numeric Health Syst em ] in Serum or results) Plasma Potassium 4.2 Normal (applies Potassium, [facility] [Mass/volume] mmol/L to non-numeric Serum Health Syst em in Serum or results) Plasma Chloride 108 Above high normal Chloride, [facility] [Moles/volume mmol/L Serum Health System ] in Serum or Plasma Carbon 22.0 Normal (applies CO2, Serum [facility] dioxide, mmol/L to non-numeric Health System total results) [Moles/volume ] in Serum or Plasma Glucose 81 mg/dL Normal (applies Glucose, Serum [facility] [Mass/volume] to non-numeric Health Syst em in Serum or results) Plasma Urea nitrogen 9 mg/dl Normal (applies Blood Urea [facility] [Mass/volume] to non-numeric Nitrogen, Health Syst em in Serum or results) Serum Plasma Creatinine 0.70 Normal (applies Creatinine, [facility] [Mass/volume] mg/dl to non-numeric Serum Health Syst em in Serum or results) Plasma Calcium 9.0 Normal (applies Calcium, Total [facility] [Mass/volume] mg/dl to non-numeric Serum Health Syst em in Serum or results) Plasma Anion gap in 8.00 Normal (applies Anion Gap [facility] Serum or mmol/L to non-numeric Health System Plasma results) ID Date Data Source [id number] 02/04/2019 04:16:09 PM EST [facility] Name Value Range Interpretation Description Data Sup porting Code Source(s) Document(s ) Phenobarbital 47.3 Above upper PHENobarbital [facility] [Mass/volume] in ug/ml panic limits Level, Serum Health Serum or Plasma System ID Date Data Source [id number] 02/04/2019 04:16:09 PM EST [facility] Name Value Range Interpretation Description Data Sup porting Code Source(s) Document(s ) Leukocytes 6.1 Normal (applies WBC Count [facility] [#/volume] in {10\\S\\3_ to non-numeric Health Unspecified uL} results) System specimen by Automated count Erythrocytes 4.68 Normal (applies RBC Count [facility] [#/volume] in {10\\S\\6_ to non-numeric Health Blood by uL} results) System Automated count Hemoglobin 11.0 Below low normal Hemoglobin, [facility] [Mass/volume] in {gm/dL} Whole Blood Health Blood System Hematocrit 34.8 % Below low normal Hematocrit, [facility] [Volume Whole Blood Health Fraction] of System Blood Erythrocyte mean 74.4 fl Below low normal MCV [facility] corpuscular Health volume [Entitic System volume] by Automated count Erythrocyte mean 23.5 pg Below low normal MCH [facility] corpuscular Health hemoglobin System [Entitic mass] by Automated count Erythrocyte mean 31.6 Below low normal MCHC [facility] corpuscular {gm/dL} Health hemoglobin System concentration [Mass/volume] by Automated count Erythrocyte 17.1 % Above high normal RDW [facility] distribution Health width [Entitic System volume] by Automated count Platelets 457 Above high normal Platelet [facility] [#/volume] in {10\\S\\3_ Count Health Plasma by uL} System Automated count Platelet mean 10.0 fl Normal (applies MPV [facility] volume [Entitic to non-numeric Health volume] in Blood results) System by Automated count ID Date Data Source [id number] 02/04/2019 04:16:09 PM EST [facility] Name Value Range Interpretation Description Data Sup porting Code Source(s) Document(s ) Sodium 137 mmol/L Normal (applies Sodium, [facility] [Moles/volume] to non-numeric Serum Health in Serum or results) System Plasma Potassium 4.7 mmol/L Normal (applies Potassium, [facility] [Mass/volume] to non-numeric Serum Health in Serum or results) System Plasma Chloride 105 mmol/L Normal (applies Chloride, [facility] [Moles/volume] to non-numeric Serum Health in Serum or results) System Plasma Carbon dioxide, 20.0 mmol/L Below low CO2, Serum [facility] total normal Health [Moles/volume] System in Serum or Plasma TotalProtein 6.8 mg/dl Normal (applies Total [facility] to non-numeric Protein Health results) System Glucose 87 mg/dL Normal (applies Glucose, [facility] [Mass/volume] to non-numeric Serum Health in Serum or results) System Plasma Urea nitrogen 7 mg/dl Normal (applies Blood Urea [facility] [Mass/volume] to non-numeric Nitrogen, Health in Serum or results) Serum System Plasma Creatinine 0.70 mg/dl Normal (applies Creatinine, [facility] [Mass/volume] to non-numeric Serum Health in Serum or results) System Plasma Alkaline 79 {IU/L} Normal (applies Alkaline [facility] phosphatase to non-numeric Phosphatase, Health isoenzymes results) Serum System [Enzymatic activity/volume ] in Serum or Plasma by Heat stability Bilirubin.total 0.1 mg/dl Below low Bilirubin, [facility] [Mass/volume] normal Serum Total Health in Serum or System Plasma Aspartate 12 {IU/L} Normal (applies Aspartate [facility] aminotransferas to non-numeric Transaminase Health e [Enzymatic results) , Serum System activity/volume ] in Serum or Plasma by With P-5'-P Albumin 3.9 {gm/dl} Normal (applies Albumin, [facility] [Mass/volume] to non-numeric Serum Health in Serum or results) System Plasma I.Phosphorus 3.8 mg/dl Normal (applies I. [facility] to non-numeric Phosphorus Health results) System Alanine 10 {IU/L} Normal (applies Alanine [facility] aminotransferas to non-numeric Aminotransfe Health e [Enzymatic results) rase, Serum System activity/volume ] in Serum or Plasma Calcium 9.4 mg/dl Normal (applies Calcium, [facility] [Mass/volume] to non-numeric Total Serum Health in Serum or results) System Plasma A/GRatio 1.34 Normal (applies A/G Ratio [facility] to non-numeric Health results) System Urate 5.1 mg/dl Normal (applies Uric Acid, [facility] [Mass/volume] to non-numeric Serum Health in Serum or results) System Plasma Anion gap in 12.00 mmol/L Normal (applies Anion Gap [facility] Serum or Plasma to non-numeric Health results) System Glomerular Greater than Normal (applies GFR [facility] filtration 60 eGFR will to non-numeric Health rate/1.73 sq provide results) System M.predicted clinicians [Volume with a more Rate/Area] in accurate Serum or Plasma indicator of by renal function Creatinine-base then the serum d formula creatinine. (CKD-EPI) The eGFR is automatically calculated from an empiric formula (endorsed by the [employer]) which incorporates age, sex, and race.Clinician s may notice surprisingly low GFR's with serum creatinine valueswithin normal range- particularly in elderly women (with low muscle mass).In the hospital setting, the eGFR should add an element of safety in drug dosing, in assessing the risk of IV contrast administration , and in assessing vascular risk.The NKF staging system is as follows:Normal : eGFR >90 with no kidney markersStage 1: eGFR >90 with kidney markers*Stage 2: eGFR 60-89Stage 3: eGFR 30-59Stage 4: eGFR 15-29Stage 5: eGFR <15 (usually requiring dialysis)*Rodney ers include: Proteinuria, Hematuria, abnormal imaging-studie s, or other blood or urine test abnormalities ID Date Data Source [id number] 02/04/2019 04:16:09 PM EST [facility] System Name Value Range Interpretation Description Data Sup porting Code Source(s) Document(s ) Phenobarbital 29.5 Normal (applies PHENobarbital [facility] [Mass/volume] in ug/ml to non-numeric Level, Serum Healt h Serum or Plasma results) System ok ID Date Data Source [id number] 02/04/2019 04:16:09 PM EST [facility] Name Value Range Interpretation Description Data Source(s ) Supporting Code Document(s ) DirectAn Negative Normal (applies to Direct [facility] tiglobul non-numeric [facility] inTest. results) Test. ID Date Data Source [id number] 02/04/2019 04:16:09 PM EST [facility] Name Value Range Interpretation Description Data Sup porting Code Source(s) Document(s ) Type B Normal (applies Type [facility] to non-numeric Health results) System D Ab [Titer] in Rh Normal (applies Rh Factor, [facility] Serum or Plasma Positive to non-numeric Whole Blood Health results) System AntibodyScreen Negative Normal (applies Antibody [facility] to non-numeric Screen Health results) System ID Date Data Source [id number] 02/04/2019 04:16:09 PM EST [facility] Name Value Range Interpretation Description Data Sup porting Code Source(s) Document(s ) Color YELLOW Normal (applies Color [facility] to non-numeric Health results) System Appearance of CLEAR Normal (applies Urine [facility] Urine to non-numeric Appearance Health results) System Specific 1.010 Normal (applies Urine [facility] gravity of to non-numeric Specific Health Urine results) [place] [facility] pH.. 7.0 Normal (applies pH.. [facility] {pH_units} to non-numeric Health results) System Glucose,UA NEGATIVE Normal (applies Glucose, UA [facility] to non-numeric Health results) System Negative Protein NEGATIVE Normal (applies Protein [facility] [Mass/volume] in to non-numeric Health S ystem Serum or Plasma results) BilirubinUrine NEGATIVE Normal (applies Bilirubin Urine [facility] to non-numeric [facility] System results) Urobilinogen 0.20 {eu/dL} Normal (applies Urobilinogen UA [facility] [Mass/volume] in to non-numeric Health S ystem Urine results) Ketones NEGATIVE Normal (applies Ketones UA [facility] [Mass/volume] in to non-numeric Health S ystem Urine results) Negative Nitrate+Nitrite NEGATIVE Normal (applies to Nitrite [facility] [Mass/volume] in non-numeric results) Sy stem Unspecified specimen Negative Leukocyte esterase NEGATIVE Normal (applies Leukocyte Shawna ase [facility] [Units/volume] in to non-numeric Concentration a [facility] System Urine results) Negative Leukocytes 0-2 Normal (applies to White Blood Cells [facility] [#/volume] in non-numeric Health System Unspecified specimen results) by Automated count RedBloodCells 2-5 Normal (applies to Red Blood Cells [facility] non-numeric [facility] System results) Epithelial cells FEW Normal (applies to Epithelial Krystal ls [facility] [Presence] in non-numeric Health System Unspecified specimen results) by Wet preparation Bacteria [Presence] FEW Normal (applies to Bacteria [facility] in Unspecified non-numeric Health System specimen results) UrineBlood TRACE-LYSE Abnormal (applies Urine Blood [facility] D to non-numeric Health System results) ID Date Data Source [id number] 02/04/2019 04:16:09 PM EST [facility] Name Value Range Interpretation Description Data Sup porting Code Source(s) Document(s ) aPTT in Blood 25.0 Normal (applies Activated [facility] by Coagulation {Seconds to non-numeric Partial Health assay } results) Thromboplastin System Time OK ID Date Data Source [id number] 02/04/2019 04:16:09 PM EST [facility] Name Value Range Interpretation Description Data Sup porting Code Source(s) Document(s ) Prothrombintim 10.70 Normal (applies Prothrombin [facility](PT) to non-numeric time (PT) Health System results) INR in Blood 1.00 Normal (applies INR Result [facility] by Coagulation {Ratio} to non-numeric Health Sys tem assay results) Normal = 0.7-1.1Therapeutic = 2.0-3.0Mec hanical Heart = 3.0-4.5 ID Date Data Source [id number] 02/04/2019 04:16:09 PM EST [facility] Name Value Range Interpretation Description Data Sup porting Code Source(s) Document(s ) Leukocytes 8.6 Normal (applies WBC Count [facility] [#/volume] in {10\\S\\3_ to non-numeric Health Syst em Unspecified uL} results) specimen by Automated count ok Erythrocytes 4.72 {10\\S\\6_uL} Normal (applies RBC Count [place] [facility] [#/volume] in Blood to non-numeric Healt h System by Automated count results) Hemoglobin 11.0 {gm/dL} Below low normal Hemoglobin, [facility] [Mass/volume] in Whole Blood Health Syst em Blood Hematocrit [Volume 35.1 % Below low normal Hematocrit, [facility] Fraction] of Blood Whole Blood Health Sy stem Erythrocyte mean 74.4 fl Below low normal MCV [facility] corpuscular volume Health Syst em [Entitic volume] by Automated count Erythrocyte mean 23.3 pg Below low normal MCH [facility] corpuscular [facility] hemoglobin [Entitic mass] by Automated count Erythrocyte mean 31.3 {gm/dL} Below low normal [facility] corpuscular [facility] hemoglobin concentration [Mass/volume] by Automated count Erythrocyte 17.0 % Above high RDW [facility] distribution width normal Health Syst em [Entitic volume] by Automated count Platelets 478 {10\\S\\3_uL} Above high Platelet Count [facility] [#/volume] in normal Health System Plasma by Automated count Platelet mean 9.8 fl Normal (applies MPV [facility] volume [Entitic to non-numeric Health Sy stem volume] in Blood by results) Automated count Monocytes 0.6 {10\\S\\3_uL} Normal (applies Monocyte Count [facility] [#/volume] in Blood to non-numeric Healt h System by Manual count results) Eosinophils 0.1 {10\\S\\3} Normal (applies Eosinophil [facility] [#/volume] in Blood to non-numeric Count Blood Hea lt System results) Neutrophils 5.9 {10\\S\\3_uL} Normal (applies Absolute [facility] [#/volume] in Body to non-numeric Neutrophil Healt h System fluid results) Count Basophils 0.04 {10\\S\\3_uL} Normal (applies Basophil Count [facility] [#/volume] in Blood to non-numeric Healt h System by Automated count results) Lymphocyte percent 2.0 {10\\S\\3_uL} Normal (applies Lymphocyt e [facility] differential count to non-numeric Absolute Health System (procedure) results) Neutrophils/100 68.8 % Normal (applies Neutrophil % Jono savi leukocytes in Blood to non-numeric [facility] h System by Automated count results) Monocytes/100 7.0 % Normal (applies Monocyte % [facility] leukocytes in Blood [facility] results) Eosinophils/100 0.8 % Below low normal Eosinophil % [place] [facility] leukocytes in Health System Unspecified specimen Basophils/100 0.5 % Normal (applies Basophil % [facility] leukocytes in to non-numeric Health Syst em Unspecified results) specimen by Manual count Lymphocytes 22.9 % Normal (applies Lymphocyte % [facility] [#/volume] in Blood to non-numeric [facility] System by Automated count results) ID Date Data Source [id number] 02/04/2019 04:16:09 PM EST [facility] Name Value Range Interpretation Description Data Source(s ) Supporting Code Document(s ) Sodium 143 Normal (applies to Sodium, Serum [facility] [Moles/vol mmol/L non-[facility] ume] in results) Serum or Plasma ok Potassium 4.7 mmol/L Normal (applies Potassium, Serum [facility] [Mass/volume] in to non-[facility] Health S yste Serum or Plasma results) Chloride 107 mmol/L Normal (applies Chloride, Serum [facility] [Moles/volume] in to non-[facility] Serum or Plasma results) Carbon dioxide, 26.0 mmol/L Normal (applies CO2, Serum Jono savi total [Moles/volume] to non-numeric [facility] System in Serum or Plasma results) ok Glucose [Mass/volume] 98 mg/dL Normal (applies to Glucos e, Serum [facility] in Serum or Plasma non-numeric System results) ok Urea nitrogen 8 mg/dl Normal (applies to Blood Urea [facility] [Mass/volume] in non-numeric Nitrogen, Serum [facility] Serum or Plasma results) Creatinine 0.80 mg/dl Normal (applies to Creatinine, [facility] [Mass/volume] in non-numeric Serum [facility] Syst em Serum or Plasma results) Calcium 10.3 mg/dl Above high normal Calcium, Total [facility] [Mass/volume] in Serum Health System Serum or Plasma Anion gap in Serum 10.00 mmol/L Normal (applies to Anion Gap [facility] or Plasma non-numeric Health System results) ID Date Data Source [id number] 02/04/2019 04:16:09 PM [facility] Name Value Range Interpretation Description Data Sup porting Code Source(s) Document(s ) hCGQuantitative Less than 5.0 Normal (applies hCG [place] Negative = <5 to non-numeric Quantitative Health mIU/mLAPPROXI results) System MATE GEST. AGE APPROXIMATE HCG mIU/ML 0.2 - 1 week 5 - 50 1 - 2 weeks 50 - 500 2 - 3 weeks 100 - 5,000 3 - 4 weeks 500 - 10,000 4 - 5 weeks 1,000 - 50,000 5 - 6 weeks 10,000 - 100,000 6 - 8 weeks 15,000 - 200,000 8 - 12 weeks 10,000 - 100,000HCG levels between 5-25 mIU/mL may be indicative of early . Correlation with other clinical findings and/or repeat of HCG quantitative testing recommened. ID Date Data Source [id number] 02/04/2019 04:16:09 PM [facility] Name Value Range Interpretation Description Data Sup porting Code Source(s) Document(s ) TissueExam SEE TEXT Normal (applies Tissue Exam [facility] CLIN[facility] to non-numeric Health INFORMATION: results) System Chronic pelvic pain. Fibroid uterus.PREOPERAT CHRISSY DIAGNOSIS: Same.POSTOPERATI VE DIAGNOSIS: Same.Surgical Pathology ReportFINAL DIAGNOSIS:Uterus , hysterectomy:Lei omyomas, multiple, intramural and submucosal.Late proliferative endometrium with superficial adenomyosis.Uppe r cervix with squamous metaplasia and parakeratosis.Fa llopian tube and ovary, right, salpingo-oophore ctomy:Ovarian follicle cyst and hemorrhagic corpus luteum.No significant pathologic changes.Fallopia n tube and ovary, left, salpingo-oophore ctomy:No significant pathologic changes.GO/stGRO SS DESCRIPTION:In formalin, labeled "uterus, ovaries, tubes and portion of cervix", the specimen consists of a uterus with attached bilateral adnexa and upper cervix, together weighing 200grams. The uterus measures 10 X 8 X 6.5cm. The external surface shows fibrinous adhesions over the anterior and right lateral wall extending to the right ovary and tube. Opening reveals multiple intramural and an exophytic submucosal mass, measuring between 2.5 and 2cm in greatest dimension. The myometrium outside of the nodules is thickened up to 2.8cm. The endometrial cavity is lined by layer of creamy endometrium up to 0.5cm thick. The portion of attached cervix measures 2cm in length and is unremarkable. The right ovary measures 3.8 X 2 X 1.1cm. The surface shows 2 cystic follicles, one of which is hemorrhagic, measuring up to 1cm in greatest dimension. Upon sectioning, no additional lesions are identified. The right fallopian tube has been transected at 1cm from the fimbrial end. Upon reconstruction, it measures 3cm in length and shows no discrete lesions. The left ovary measures 2.5 X 2 X 1cm and is unremarkable. The left fallopian tube measures 4cm in length and sectioning reveals thinned out wall and patent lumen. Still Operator Batch Or Continuous sections are submitted. Summary of sections: #1- upper cervix; #2,3- endometrium and myometrium; #4-6- intramural nodules; #7- submucosal nodule; #8- right fallopian tube and ovary; #9- left fallopian tube and ovary.GO/stElect ronically signed [email or web address](Signed out 06/20/2011) ID Date Data Source [id number] 02/04/2019 04:16:09 PM EST [facility] Name Value Range Interpretation Description Data Sup porting Code Source(s) Document(s ) Leukocytes 10.1 Normal (applies WBC Count [facility] [#/volume] in {10\\S\\3_ to non-numeric Health Unspecified uL} results) System specimen by Automated count Erythrocytes 3.92 Normal (applies RBC Count [facility] [#/volume] in {10\\S\\6_ to non-numeric Health Blood by uL} results) System Automated count Hemoglobin 9.1 Below low normal Hemoglobin, [facility] [Mass/volume] in {gm/dL} Whole Blood Health Blood System Hematocrit 29.0 % Below low normal Hematocrit, [facility] [Volume Whole Blood Health Fraction] of System Blood Erythrocyte mean 74.0 fl Below low normal MCV [facility] corpuscular Health volume [Entitic System volume] by Automated count Erythrocyte mean 23.2 pg Below low normal MCH [facility] corpuscular Health hemoglobin System [Entitic mass] by Automated count Erythrocyte mean 31.4 Below low normal MCHC [facility] corpuscular {gm/dL} Health hemoglobin System concentration [Mass/volume] by Automated count Erythrocyte 17.0 % Above high normal RDW [facility] distribution Health width [Entitic System volume] by Automated count Platelets 379 Normal (applies Platelet [facility] [#/volume] in {10\\S\\3_ to non-numeric Count Health Plasma by uL} results) System Automated count Platelet mean 9.8 fl Normal (applies MPV [facility] volume [Entitic to non-numeric Health volume] in Blood results) System by Automated count Monocytes 1.2 Normal (applies Monocyte [facility] [#/volume] in {10\\S\\3_ to non-numeric Count Health Blood by Manual uL} results) System count Eosinophils 0.0 Normal (applies Eosinophil [facility] [#/volume] in {10\\S\\3} to non-numeric Count Blood Health Blood results) System Basophils 0.02 Normal (applies Basophil [facility] [#/volume] in {10\\S\\3_ to non-numeric Count Health Blood by uL} results) System Automated count Neutrophils 6.5 Normal (applies Absolute [facility] [#/volume] in {10\\S\\3_ to non-numeric Neutrophil Health Body fluid uL} results) Count System Lymphocyte 2.4 Normal (applies Lymphocyte [facility] percent {10\\S\\3_ to non-numeric Absolute Health differential uL} results) System count (procedure) Neutrophils/100 63.7 % Normal (applies Neutrophil % Jono savi leukocytes in to non-numeric Health Blood by results) System Automated count Monocytes/100 11.9 % Above high normal Monocyte % [facility] leukocytes in Health Blood System Eosinophils/100 0.4 % Below low normal Eosinophil % [place] [facility] leukocytes in Health Unspecified System specimen Basophils/100 0.2 % Normal (applies Basophil % [facility] leukocytes in to non-numeric Health Unspecified results) System specimen by Manual count Lymphocytes 23.8 % Normal (applies Lymphocyte % [facility] [#/volume] in to non-numeric Health Blood by results) System Automated count ID Date Data Source [id number] 02/04/2019 04:16:09 PM EST [facility] Name Value Range Interpretation Description Data Sup porting Code Source(s) Document(s ) Leukocytes 9.7 Normal (applies WBC Count [facility] [#/volume] in {10\\S\\3_ to non-numeric Health Unspecified uL} results) System specimen by Automated count Erythrocytes 4.21 Normal (applies RBC Count [facility] [#/volume] in {10\\S\\6_ to non-numeric Health Blood by uL} results) System Automated count Hemoglobin 9.9 Below low normal Hemoglobin, [facility] [Mass/volume] in {gm/dL} Whole Blood Health Blood System Hematocrit 31.5 % Below low normal Hematocrit, [facility] [Volume Whole Blood Health Fraction] of System Blood Erythrocyte mean 74.8 fl Below low normal MCV [facility] corpuscular Health volume [Entitic System volume] by Automated count Erythrocyte mean 23.5 pg Below low normal MCH [facility] corpuscular Health hemoglobin System [Entitic mass] by Automated count Erythrocyte mean 31.4 Below low normal MCHC [facility] corpuscular {gm/dL} Health hemoglobin System concentration [Mass/volume] by Automated count Erythrocyte 18.6 % Above high normal RDW [facility] distribution Health width [Entitic System volume] by Automated count Platelets 457 Above high normal Platelet [facility] [#/volume] in {10\\S\\3_ Count Health Plasma by uL} System Automated count Platelet mean 9.8 fl Normal (applies MPV [facility] volume [Entitic to non-numeric Health volume] in Blood results) System by Automated count Monocytes 0.7 Normal (applies Monocyte [facility] [#/volume] in {10\\S\\3_ to non-numeric Count Health Blood by Manual uL} results) System count Eosinophils 0.1 Normal (applies Eosinophil [facility] [#/volume] in {10\\S\\3} to non-numeric Count Blood Health Blood results) System Neutrophils 7.1 Normal (applies Absolute [facility] [#/volume] in {10\\S\\3_ to non-numeric Neutrophil Health Body fluid uL} results) Count System Basophils 0.03 Normal (applies Basophil [facility] [#/volume] in {10\\S\\3_ to non-numeric Count Health Blood by uL} results) System Automated count Lymphocyte 1.8 Normal (applies Lymphocyte [facility] percent {10\\S\\3_ to non-numeric Absolute Health differential uL} results) System count (procedure) Neutrophils/100 73.0 % Normal (applies Neutrophil % Jono savi leukocytes in to non-numeric Health Blood by results) System Automated count Monocytes/100 7.4 % Normal (applies Monocyte % [facility] leukocytes in to non-numeric Health Blood results) System Eosinophils/100 1.2 % Normal (applies Eosinophil % Jono savi leukocytes in to non-numeric Health Unspecified results) System specimen Basophils/100 0.3 % Normal (applies Basophil % [facility] leukocytes in to non-numeric Health Unspecified results) System specimen by Manual count Lymphocytes 18.1 % Below low normal Lymphocyte % [facility] [#/volume] in Health Blood by System Automated count ID Date Data Source [id number] 02/04/2019 04:16:09 PM EST [facility] Name Value Range Interpretation Description Data Sup porting Code Source(s) Document(s ) Albumin 3.7 Below low normal Albumin, [facility] [Mass/volume] in {gm/dl} Serum Health Serum or Plasma System Bilirubin.total 0.2 Normal (applies Bilirubin, [facility] [Mass/volume] in mg/dl to non-numeric Serum Total Health Serum or Plasma results) System Aspartate 34 Normal (applies Aspartate [facility] aminotransferase {IU/L} to non-numeric Transaminase, Heal th [Enzymatic results) Serum System activity/volume] in Serum or Plasma by With P-5'-P Alanine 12 Normal (applies Alanine [facility] aminotransferase {IU/L} to non-numeric Aminotransfer Heal th [Enzymatic results) ase, Serum System activity/volume] in Serum or Plasma Alkaline 73 Normal (applies Alkaline [facility] phosphatase {IU/L} to non-numeric Phosphatase, Health isoenzymes results) Serum System [Enzymatic activity/volume] in Serum or Plasma by Heat stability TotalProtein 7.6 Normal (applies Total Protein [facility] mg/dl to non-numeric Health results) System DirectBilirubin Less Normal (applies Direct [facility] than to non-numeric Bilirubin Health 0.1 results) System ID Date Data Source [id number] 02/04/2019 04:16:09 PM EST [facility] Name Value Range Interpretation Description Data Sup porting Code Source(s) Document(s ) Sodium 141 mmol/L Normal (applies Sodium, [facility] [Moles/volume] to non-numeric Serum Health in Serum or results) System Plasma Chloride 104 mmol/L Normal (applies Chloride, [facility] [Moles/volume] to non-numeric Serum Health in Serum or results) System Plasma Carbon dioxide, 23.0 mmol/L Normal (applies CO2, Serum Jono savi total to non-numeric Health [Moles/volume] results) System in Serum or Plasma TotalProtein 7.6 mg/dl Normal (applies Total [facility] to non-numeric Protein Health results) System Glucose 118 mg/dL Above high Glucose, [facility] [Mass/volume] normal Serum Health in Serum or System Plasma Urea nitrogen 12 mg/dl Normal (applies Blood Urea [facility] [Mass/volume] to non-numeric Nitrogen, Health in Serum or results) Serum System Plasma Creatinine 0.70 mg/dl Normal (applies Creatinine, [facility] [Mass/volume] to non-numeric Serum Health in Serum or results) System Plasma Alkaline 73 {IU/L} Normal (applies Alkaline [facility] phosphatase to non-numeric Phosphatase, Health isoenzymes results) Serum System [Enzymatic activity/volume ] in Serum or Plasma by Heat stability Bilirubin.total 0.2 mg/dl Normal (applies Bilirubin, [facility] [Mass/volume] to non-numeric Serum Total Health in Serum or results) System Plasma Aspartate 34 {IU/L} Normal (applies Aspartate [facility] aminotransferas to non-numeric Transaminase Health e [Enzymatic results) , Serum System activity/volume ] in Serum or Plasma by With P-5'-P Albumin 3.7 {gm/dl} Below low Albumin, [facility] [Mass/volume] normal Serum Health in Serum or System Plasma I.Phosphorus 4.0 mg/dl Normal (applies I. [facility] to non-numeric Phosphorus Health results) System Alanine 12 {IU/L} Normal (applies Alanine [facility] aminotransferas to non-numeric Aminotransfe Health e [Enzymatic results) rase, Serum System activity/volume ] in Serum or Plasma Calcium 9.4 mg/dl Normal (applies Calcium, [facility] [Mass/volume] to non-numeric Total Serum Health in Serum or results) System Plasma A/GRatio 0.95 Normal (applies A/G Ratio [facility] to non-numeric Health results) System Urate 4.5 mg/dl Normal (applies Uric Acid, [facility] [Mass/volume] to non-numeric Serum Health in Serum or results) System Plasma Anion gap in 14.00 mmol/L Above high Anion Gap [facility] Serum or Plasma normal Health System Glomerular Greater than Normal (applies GFR [facility] filtration 60 eGFR will to non-numeric Health rate/1.73 sq provide results) System M.predicted clinicians [Volume with a more Rate/Area] in accurate Serum or Plasma indicator of by renal function Creatinine-base then the serum d formula creatinine. (CKD-EPI) The eGFR is automatically calculated from an empiric formula (endorsed by the [employer]) which incorporates age, sex, and race.Clinician s may notice surprisingly low GFR's with serum creatinine valueswithin normal range- particularly in elderly women (with low muscle mass).In the hospital setting, the eGFR should add an element of safety in drug dosing, in assessing the risk of IV contrast administration , and in assessing vascular risk.The NKF staging system is as follows:Normal : eGFR >90 with no kidney markersStage 1: eGFR >90 with kidney markers*Stage 2: eGFR 60-89Stage 3: eGFR 30-59Stage 4: eGFR 15-29Stage 5: eGFR <15 (usually requiring dialysis)*Rodney ers include: Proteinuria, Hematuria, abnormal imaging-studie s, or other blood or urine test abnormalities ID Date Data Source [id number] 02/04/2019 04:16:09 PM EST [facility] Name Value Range Interpretation Description Data Source(s ) Supporting Code Document(s ) Lipase 37 U/L Normal (applies to Lipase, Serum [facility] [Enzymatic non-numeric Health System activity/vo results) lume] in Serum or Plasma ID Date Data Source [id number] 02/04/2019 04:16:09 PM EST [facility] System Name Value Range Interpretation Description Data Sup porting Code Source(s) Document(s ) Amylase 40 {IU/L} Normal (applies to Amylase, Serum [facility] [Enzymatic non-numeric Health System activity/vo results) lume] in Serum or Plasma ID Date Data Source [id number] 02/04/2019 04:16:09 PM EST [facility] System Name Value Range Interpretation Code Description Data Nany rce(s) Supporting Document(s ) Glucose,U NEGATIVE Normal (applies to Glucose, UA [facility] A non-numeric Health System results) Negative Protein NEGATIVE Normal (applies Protein [facility] [Mass/volume] in to non-numeric Health S yste Serum or Plasma results) BilirubinUrine NEGATIVE Normal (applies Bilirubin Urine [facility] to non-numeric Health System results) Urobilinogen 0.20 {eu/dL} Normal (applies Urobilinogen UA [facility] [Mass/volume] in to non-numeric [facility] S yste Urine results) pH.. 7.0 {pH_units} Normal (applies pH.. [facility] to non-numeric Health System results) Ketones NEGATIVE Normal (applies Ketones UA [facility] [Mass/volume] in to non-numeric Health S te Urine results) Negative Nitrate+Nitrite POSITIVE Normal (applies to Nitrite [facility] [Mass/volume] in non-numeric results) Sy stem Unspecified specimen Negative Leukocyte esterase NEGATIVE Normal (applies Leukocyte Shawna ase [facility] [Units/volume] in to non-numeric Concentration Hea lt System Urine results) Negative Appearance of CLEAR Normal (applies to Urine Appearance [facility] Urine non-numeric System results) Specific gravity 1.015 Normal (applies to Urine Specific [facility] of Urine non-numeric [place] System results) Color YELLOW Normal (applies to Color [facility] non-numeric System results) UrineBlood NEGATIVE Normal (applies to Urine Blood [facility] non-numeric System results) ID Date Data Source [id number] 02/04/2019 04:16:09 PM EST [facility] Name Value Range Interpretation Description Data Sup porting Code Source(s) Document(s ) Deprecated Micro Result Normal (applies Aerobic Culture, [facility] Bacteria to non-numeric Urine Health identified results) System in Urine by Aerobe culture XXX Escherichia Organism [facility] microorganis coli [facility] m serotype System [Identifier] in Isolate by Agglutinatio n ColonyCount > 100,000 [place] Count [facility] CFU/ML Health System Amikacin <=16 - Amikacin [facility] [Susceptibil Sensitive Health ity] System Ampicillin <=8 - Ampicillin [facility] [Susceptibil Sensitive Health ity] System Ampicillin+S <=8/4 - [facility] ulbactam Sensitive Ampicillin/Sulbac Health [Susceptibil guzmán System ity] Aztreonam <=8 - Aztreonam [facility] [Susceptibil Sensitive Health ity] System Cefazolin <=8 - cefazolin [facility] [Susceptibil Sensitive Health ity] System Cefoxitin <=8 - Cefoxitin [facility] [Mass/volume Sensitive Health ] in System Unspecified specimen Ceftriaxone <=8 - Ceftriaxone [facility] [Susceptibil Sensitive Health ity] System Ciprofloxaci <=1 - Ciprofloxacin [facility] n Sensitive Health [Susceptibil System ity] Ertapenem <=1 - Ertapenem [facility] [Susceptibil Sensitive Health ity] by System Minimum inhibitory concentratio n ([place]) Gentamicin <=4 - Gentamicin [facility] [Susceptibil Sensitive Health ity] System Nitrofuranto <=32 - Nitrofurantoin [facility] in Sensitive Health [Mass/volume System ] in Serum or Plasma Piperacillin <=16 - [facility] +Tazobactam Sensitive Piperacillin/Tazo Health [Susceptibil bactam System ity] Trimethoprim <=2/38 - Trimethoprim/ [facility] +Sulfamethox Sensitive Sulfamethoxazole Health azole System [Susceptibil ity] ID Date Data Source [id number] 02/04/2019 04:16:09 PM EST [facility] Name Value Range Interpretation Description Data Sup porting Code Source(s) Document(s ) Bacteria NO GROWTH Cult Bacteria [facility] identified in Blood Health System Blood by Aerobe culture ID Date Data Source [id number] 02/04/2019 04:16:09 PM EST [facility] Name Value Range Interpretation Description Data Sup porting Code Source(s) Document(s ) Bacteria NO GROWTH Cult Bacteria [facility] identified in Blood Health System Blood by Aerobe culture ID Date Data Source [id number] 02/04/2019 04:16:09 PM EST [facility] Name Value Range Interpretation Description Data Sup porting Code Source(s) Document(s ) Leukocytes 9.9 Normal (applies WBC Count [facility] [#/volume] in {10\\S\\3_ to non-numeric Health Unspecified uL} results) System specimen by Automated count Erythrocytes 4.41 Normal (applies RBC Count [facility] [#/volume] in {10\\S\\6_ to non-numeric Health Blood by uL} results) System Automated count Hemoglobin 10.3 Below low normal Hemoglobin, [facility] [Mass/volume] in {gm/dL} Whole Blood Health Blood System Hematocrit 33.1 % Below low normal Hematocrit, [facility] [Volume Whole Blood Health Fraction] of System Blood Erythrocyte mean 75.1 fl Below low normal MCV [facility] corpuscular Health volume [Entitic System volume] by Automated count Erythrocyte mean 23.4 pg Below low normal MCH [facility] corpuscular Health hemoglobin System [Entitic mass] by Automated count Erythrocyte mean 31.1 Below low normal MCHC [facility] corpuscular {gm/dL} Health hemoglobin System concentration [Mass/volume] by Automated count Erythrocyte 19.1 % Above high normal RDW [facility] distribution Health width [Entitic System volume] by Automated count Platelets 475 Above high normal Platelet [facility] [#/volume] in {10\\S\\3_ Count Health Plasma by uL} System Automated count Platelet mean 9.6 fl Normal (applies MPV [facility] volume [Entitic to non-numeric Health volume] in Blood results) System by Automated count Monocytes 0.6 Normal (applies Monocyte [facility] [#/volume] in {10\\S\\3_ to non-numeric Count Health Blood by Manual uL} results) System count Eosinophils 0.1 Normal (applies Eosinophil [facility] [#/volume] in {10\\S\\3} to non-numeric Count Blood Health Blood results) System Basophils 0.03 Normal (applies Basophil [facility] [#/volume] in {10\\S\\3_ to non-numeric Count Health Blood by uL} results) System Automated count Neutrophils 8.2 Normal (applies Absolute [facility] [#/volume] in {10\\S\\3_ to non-numeric Neutrophil Health Body fluid uL} results) Count System Lymphocyte 1.1 Normal (applies Lymphocyte [facility] percent {10\\S\\3_ to non-numeric Absolute Health differential uL} results) System count (procedure) Neutrophils/100 82.2 % Normal (applies Neutrophil % [facility]o savi leukocytes in to non-numeric Health Blood by results) System Automated count Monocytes/100 5.6 % Below low normal Monocyte % [facility] leukocytes in Health Blood System Eosinophils/100 0.7 % Below low normal Eosinophil % [facility] leukocytes in Health Unspecified System specimen Basophils/100 0.3 % Normal (applies Basophil % [facility] leukocytes in to non-numeric Health Unspecified results) System specimen by Manual count Lymphocytes 11.2 % Below low normal Lymphocyte % [facility] [#/volume] in Health Blood by System Automated count ID Date Data Source [id number] 02/04/2019 04:16:09 PM EST [facility] Name Value Range Interpretation Description Data Sup porting Code Source(s) Document(s ) Sodium 137 Normal (applies Sodium, Serum [facility] [Moles/volume mmol/L to non-numeric Health Syst em ] in Serum or results) Plasma Potassium 4.7 Normal (applies Potassium, [facility] [Mass/volume] mmol/L to non-numeric Serum Health Syst em in Serum or results) Plasma Chloride 105 Normal (applies Chloride, [facility] [Moles/volume mmol/L to non-numeric Serum Health Syst em ] in Serum or results) Plasma Carbon 23.0 Normal (applies CO2, Serum [facility] dioxide, mmol/L to non-numeric Health System total results) [Moles/volume ] in Serum or Plasma Glucose 97 mg/dL Normal (applies Glucose, Serum [facility] [Mass/volume] to non-numeric Health Syst em in Serum or results) Plasma VERIFIED Urea nitrogen 8 mg/dl Normal (applies to Blood Urea [facility] [Mass/volume] in non-numeric Nitrogen, Serum Healt h System Serum or Plasma results) Creatinine 0.70 mg/dl Normal (applies to Creatinine, [facility] [Mass/volume] in non-numeric Serum Health Syst em Serum or Plasma results) Calcium 9.6 mg/dl Normal (applies to Calcium, Total [facility] [Mass/volume] in non-numeric Serum Health Syst em Serum or Plasma results) Anion gap in Serum 9.00 mmol/L Normal (applies to Anion Gap [facility] or Plasma non-numeric Health System results) ID Date Data Source [id number] 02/04/2019 04:16:09 PM EST [facility] System Name Value Range Interpretation Description Data Sup porting Code Source(s) Document(s ) Deprecated Micro Normal (applies Aerobic [facility] Bacteria Result to non-numeric Culture, Health identified in Final results) Urine System Urine by Culture Aerobe Reading culture Note::< 10,000 CFU/ML GRAM NEGATIVE BACILLI ID Date Data Source [id number] 02/04/2019 04:16:09 PM EST [facility] Name Value Range Interpretation Description Data Sup porting Code Source(s) Document(s ) Leukocytes 8.4 Normal (applies WBC Count [facility] [#/volume] in {10\\S\\3_ to non-numeric Health Unspecified uL} results) System specimen by Automated count Erythrocytes 4.34 Normal (applies RBC Count [facility] [#/volume] in {10\\S\\6_ to non-numeric Health Blood by uL} results) System Automated count Hemoglobin 10.0 Below low normal Hemoglobin, [facility] [Mass/volume] in {gm/dL} Whole Blood Health Blood System Hematocrit 32.7 % Below low normal Hematocrit, [facility] [Volume Whole Blood Health Fraction] of System Blood Erythrocyte mean 75.3 fl Below low normal MCV [facility] corpuscular Health volume [Entitic System volume] by Automated count Erythrocyte mean 23.0 pg Below low normal MCH [facility] corpuscular Health hemoglobin System [Entitic mass] by Automated count Erythrocyte mean 30.6 Below low normal MCHC [facility] corpuscular {gm/dL} Health hemoglobin System concentration [Mass/volume] by Automated count Erythrocyte 19.1 % Above high normal RDW [facility] distribution Health width [Entitic System volume] by Automated count Platelets 546 Above high normal Platelet [facility] [#/volume] in {10\\S\\3_ Count Health Plasma by uL} System Automated count Platelet mean 9.2 fl Normal (applies MPV [facility] volume [Entitic to non-numeric Health volume] in Blood results) System by Automated count Monocytes 0.8 Normal (applies Monocyte [facility] [#/volume] in {10\\S\\3_ to non-numeric Count Health Blood by Manual uL} results) System count Eosinophils 0.1 Normal (applies Eosinophil [facility] [#/volume] in {10\\S\\3} to non-numeric Count Blood Health Blood results) System Neutrophils 5.8 Normal (applies Absolute [facility] [#/volume] in {10\\S\\3_ to non-numeric Neutrophil Health Body fluid uL} results) Count System Basophils 0.03 Normal (applies Basophil [facility] [#/volume] in {10\\S\\3_ to non-numeric Count Health Blood by uL} results) System Automated count Lymphocyte 1.7 Normal (applies Lymphocyte [facility] percent {10\\S\\3_ to non-numeric Absolute Health differential uL} results) System count (procedure) Neutrophils/100 69.1 % Normal (applies Neutrophil % [facility] savi leukocytes in to non-numeric Health Blood by results) System Automated count Monocytes/100 9.2 % Above high normal Monocyte % [facility] leukocytes in Health Blood System Eosinophils/100 1.6 % Normal (applies Eosinophil % [place] leukocytes in to non-numeric Health Unspecified results) System specimen Basophils/100 0.4 % Normal (applies Basophil % [facility] leukocytes in to non-numeric Health Unspecified results) System specimen by Manual count Lymphocytes 19.7 % Below low normal Lymphocyte % [facility] [#/volume] in Health Blood by System Automated count ID Date Data Source [id number] 02/04/2019 04:16:09 PM EST [facility] Name Value Range Interpretation Code Description Data Nany rce(s) Supporting Document(s ) Glucose,U NEGATIVE Normal (applies to Glucose, UA [facility] A non-numeric Health System results) Negative Protein NEGATIVE Normal (applies Protein [facility] [Mass/volume] in to non-numeric Health S ystem Serum or Plasma results) BilirubinUrine NEGATIVE Normal (applies Bilirubin Urine [facility] to non-numeric Health System results) Urobilinogen 0.20 {eu/dL} Normal (applies Urobilinogen UA [facility] [Mass/volume] in to non-[facility] Health S ystem Urine results) pH.. 7.0 {pH_units} Normal (applies pH.. [facility] to non-numeric Health System results) Ketones NEGATIVE Normal (applies Ketones UA [facility] [Mass/volume] in to non-numeric Health S ystem Urine results) Negative Nitrate+Nitrite NEGATIVE Normal (applies to Nitrite [facility] [Mass/volume] in non-numeric results) Sy stem Unspecified specimen Negative Leukocyte esterase TRACE Normal (applies to Leukocyte Es terase [facility] [Units/volume] in non-numeric Concentration Health System Urine results) Negative Appearance of CLEAR Normal (applies to Urine Appearance [facility] Urine non-numeric Health System results) Specific gravity Less than Normal (applies to Urine Specific [facility] of Urine =1.005 non-numeric [facility] results) Color YELLOW Normal (applies to Color [facility] non-numeric Health System results) UrineBlood TRACE-INTACT Abnormal (applies Urine Blood [facility] to non-numeric Health System results) ID Date Data Source [id number] 02/04/2019 04:16:09 PM EST [facility] Name Value Range Interpretation Description Data Sup porting Code Source(s) Document(s ) Leukocytes 14.6 Above high normal WBC Count [facility] [#/volume] in {10\\S\\3_ Health Unspecified uL} System specimen by Automated count Erythrocytes 5.20 Normal (applies RBC Count [facility] [#/volume] in {10\\S\\6_ to non-numeric Health Blood by uL} results) System Automated count Hemoglobin 12.7 Normal (applies Hemoglobin, [facility] [Mass/volume] in {gm/dL} to non-numeric Whole Blood Health Blood results) System Hematocrit 40.2 % Normal (applies Hematocrit, [facility] [Volume to non-numeric Whole Blood Health Fraction] of results) System Blood Erythrocyte mean 77.3 fl Below low normal MCV [facility] corpuscular Health volume [Entitic System volume] by Automated count Erythrocyte mean 24.4 pg Below low normal MCH [facility] corpuscular Health hemoglobin System [Entitic mass] by Automated count Erythrocyte mean 31.6 Below low normal MCHC [facility] corpuscular {gm/dL} Health hemoglobin System concentration [Mass/volume] by Automated count Erythrocyte 19.9 % Above high normal RDW [facility] distribution Health width [Entitic System volume] by Automated count Platelets 478 Above high normal Platelet [facility] [#/volume] in {10\\S\\3_ Count Health Plasma by uL} System Automated count Platelet mean 9.7 fl Normal (applies MPV [facility] volume [Entitic to non-numeric Health volume] in Blood results) System by Automated count Monocytes 0.5 Normal (applies Monocyte [facility] [#/volume] in {10\\S\\3_ to non-numeric Count Health Blood by Manual uL} results) System count Eosinophils 0.0 Normal (applies Eosinophil [facility] [#/volume] in {10\\S\\3} to non-numeric Count Blood Health Blood results) System Neutrophils 12.8 Normal (applies Absolute [facility] [#/volume] in {10\\S\\3_ to non-numeric Neutrophil Health Body fluid uL} results) Count System Basophils 0.03 Normal (applies Basophil [facility] [#/volume] in {10\\S\\3_ to non-numeric Count Health Blood by uL} results) System Automated count Lymphocyte 1.2 Normal (applies Lymphocyte [facility] percent {10\\S\\3_ to non-numeric Absolute Health differential uL} results) System count (procedure) Neutrophils/100 87.7 % Normal (applies Neutrophil % [place] savi leukocytes in to non-numeric Health Blood by results) System Automated count Monocytes/100 3.6 % Below low normal Monocyte % [facility] leukocytes in Health Blood System Eosinophils/100 0.0 % Below low normal Eosinophil % [place] [facility] leukocytes in Health Unspecified System specimen Basophils/100 0.2 % Normal (applies Basophil % [facility] leukocytes in to non-numeric Health Unspecified results) System specimen by Manual count Lymphocytes 8.5 % Below low normal Lymphocyte % [facility] [#/volume] in Health Blood by System Automated count ID Date Data Source [id number] 02/04/2019 04:16:09 PM EST [facility] Name Value Range Interpretation Description Data Sup porting Code Source(s) Document(s ) HCGQualitative NEGATIVE Normal (applies HCG [facility] to non-numeric Qualitative Health results) System Default Normal RangesNegative <5Indeterm inate 5-25(Please repeat in 2 days.)Positive >25 ID Date Data Source [id number] 02/04/2019 04:16:09 PM EST [facility] Name Value Range Interpretation Description Data Sup porting Code Source(s) Document(s ) Sodium 143 Normal (applies Sodium, Serum [facility] [Moles/volume] in mmol/L to non-numeric Health Serum or Plasma results) System Potassium 4.5 Normal (applies Potassium, [facility] [Mass/volume] in mmol/L to non-numeric Serum Health Serum or Plasma results) System Chloride 109 Above high Chloride, [facility] [Moles/volume] in mmol/L normal Serum Health Serum or Plasma System Carbon dioxide, 19.0 Below low normal CO2, Serum [facility] total mmol/L Health [Moles/volume] in System Serum or Plasma TotalProtein 7.5 Normal (applies Total Protein [facility] mg/dl to non-numeric Health results) System Glucose 117 Above high Glucose, [facility] [Mass/volume] in mg/dL normal Serum Health Serum or Plasma System Urea nitrogen 11 Normal (applies Blood Urea [facility] [Mass/volume] in mg/dl to non-numeric Nitrogen, Health Serum or Plasma results) Serum System Creatinine 1.00 Normal (applies Creatinine, [facility] [Mass/volume] in mg/dl to non-numeric Serum Health Serum or Plasma results) System Alkaline 97 Normal (applies Alkaline [facility] phosphatase {IU/L} to non-numeric Phosphatase, Health isoenzymes results) Serum System [Enzymatic activity/volume] in Serum or Plasma by Heat stability Bilirubin.total 0.1 Below low normal Bilirubin, [facility] [Mass/volume] in mg/dl Serum Total Health Serum or Plasma System Aspartate 13 Normal (applies Aspartate [facility] aminotransferase {IU/L} to non-numeric Transaminase, Heal th [Enzymatic results) Serum System activity/volume] in Serum or Plasma by With P-5'-P Albumin 4.2 Normal (applies Albumin, [facility] [Mass/volume] in {gm/dl} to non-numeric Serum Health Serum or Plasma results) System I.Phosphorus 3.3 Normal (applies I. Phosphorus [facility] mg/dl to non-numeric Health results) System Alanine 10 Normal (applies Alanine [facility] aminotransferase {IU/L} to non-numeric Aminotransfer Heal [Enzymatic results) ase, Serum System activity/volume] in Serum or Plasma Calcium 10.5 Above high Calcium, [facility] [Mass/volume] in mg/dl normal Total Serum Health Serum or Plasma System A/GRatio 1.27 Normal (applies A/G Ratio [facility] to non-numeric Health results) System Urate 5.8 Normal (applies Uric Acid, [facility] [Mass/volume] in mg/dl to non-numeric Serum Health Serum or Plasma results) System Anion gap in Serum 15.00 Above high Anion Gap [facility] or Plasma mmol/L normal Health System Glomerular 59.64 Normal (applies GFR [facility] filtration to non-numeric Health rate/1.73 sq results) System M.predicted [Volume Rate/Area] in Serum or Plasma by Creatinine-based formula (CKD-EPI) eGFR will provide clinicians with a more accurate indicator of renal function then the serum creatinine. The eGFR is automa tically calculated from an empiric formula (endorsed by the [employer] ion) which incorporates age, sex, and race.Clinicians may notice surprisingly low GFR's with serum creatinine valueswithin normal range- particularly in elderly wo men (with low muscle mass).In the hospital setting, the eGFR should add an element of safety in drug dosing, in assessing the risk of IV contrast administration, and in assessing vascular risk.The NKF staging system is as follows:Normal: eGFR >90 with no kidney markersStage 1: eGFR >90 with kidney markers*Stage 2: eGFR 60- 89Stage 3: eGFR 30-59Stage 4: eGFR 15-29Stage 5: eGFR <15 (usually requir ing dialysis)*Markers include: Proteinuria, Hematuria, abnormal imaging-studies, or other blood or urine test abnormalities ID Date Data Source [id number] 02/04/2019 04:16:09 PM EST [facility] Name Value Range Interpretation Description Data Source(s ) Supporting Code Document(s ) Lipase 89 U/L Above high normal Lipase, Serum [facility] [Enzymatic Health System activity/vo lume] in Serum or Plasma ID Date Data Source [id number] 02/04/2019 04:16:09 PM EST [facility] Name Value Range Interpretation Description Data Sup porting Code Source(s) Document(s ) Color YELLOW Normal (applies Color [facility] to non-numeric Health results) System Appearance of CLOUDY Abnormal (applies Urine [facility] Urine to non-numeric Appearance Health results) System Specific Greater Normal (applies Urine [facility] gravity of than =1.030 to non-numeric Specific Health Urine results) [place] System pH.. 6.0 Normal (applies pH.. [facility] {pH_units} to non-numeric Health results) System Glucose,UA NEGATIVE Normal (applies Glucose, UA [facility] to non-numeric Health results) System Negative Protein 30 mg/dl Normal (applies Protein [facility] [Mass/volume] in to non-numeric Health S ystem Serum or Plasma results) BilirubinUrine NEGATIVE Normal (applies Bilirubin Urine [facility] to non-numeric Health System results) Urobilinogen 0.20 {eu/dL} Normal (applies Urobilinogen UA [facility] [Mass/volume] in to non-numeric Health S ystem Urine results) Ketones NEGATIVE Normal (applies Ketones UA [facility] [Mass/volume] in to non-numeric Health S ystem Urine results) Negative Nitrate+Nitrite NEGATIVE Normal (applies to Nitrite [facility] Health [Mass/volume] in non-numeric results) Sy stem Unspecified specimen Negative Leukocyte esterase NEGATIVE Normal (applies Leukocyte Shawna ase [facility] [Units/volume] in to non-numeric Concentration [facility] System Urine results) Negative Leukocytes 0-3 Normal (applies to White Blood Cells [facility] [#/volume] in non-numeric System Unspecified specimen results) by Automated count RedBloodCells 10-20 Normal (app[facility]) Epithelial cells MODERATE Normal (applies to Epithelial Cells [facility] [Presence] in non-numeric System Unspecified specimen results) by Wet preparation Bacteria [Presence] NONE Normal (applies to Bacteria [facility] in Unspecified non-numeric System specimen results) UrineBlood LARGE Abnormal (applies Urine Blood [facility] e Health to non-numeric System results) ID Date Data Source [id number] 02/04/2019 04:16:09 PM EST [facility] He alth System Name Value Range Interpretation Description Data Source(s ) Supporting Code Document(s ) Amphetam Negative Normal (applies to Amphetamine [facility] ineQuali non-numeric Qualitative, Health System tative,U results) Urine rine Normal - Negative 1000 ng/mL Barbituates,Urine. Negative Normal (applies to Barbituates, Urine. [facility] non-numeric Health System results) Normal - Negative 300 ng/mL Benzodiazepine,Urine. Negative Normal (applies Benzodiazepi ne, [facility] to non-numeric Urine. Health System results) Normal - Negative 300 ng/mL CocaineQual,Urine. Positive Abnormal (applies to Cocaine Qual, [facility] Health non-numeric results) Urine. System Normal - Negative 300 ng/mL THC. Negative Normal (applies to non-numeric THC. [facility] Health System results) Normal - Negative 50 ng/mL MethaqualoneQualitative,Urine Negative Normal Methaqualo ne [facility] (applies to Qualitative, Health non-numeric Urine System results) PhencyclidinePCPQualitative,Urin Negative Normal Phencyc lidine [facility] e. (applies to [facility] Health non-numeric Qualitative, System results) Urine. Normal - Negatgive 25 ng/mL PropoxypheneQualitative,Urine Negative Normal Propoxyphe ne [facility] (applies to Qualitative, Health System non-numeric Urine results) Normal - Negative 300 ng/mL MethadoneQualitative,Urine Negative Normal (applies Methado ne [facility] to non-numeric Qualitative, Health Syste m results) Urine Normal - Negative 300 ng/mL Opiates,Urine Negative Normal (applies to Opiates, Urine [facility] non-numeric results) System Normal - Negative 300 ng/mL ID Date Data Source [id number] 02/04/2019 04:16:09 PM EST [facility] Name Value Range Interpretation Description Data Sup porting Code Source(s) Document(s ) Amphetamine Negative Normal (applies Amphetamine [facility] [Mass/volume] to non-numeric Level, Urine Health in Urine results) System Cut-off = 1000 ng/mL Barbiturates Negative Normal (applies to Barbiturate [facility] [Mass/volume] in non-numeric Screen, Urine Health System Urine by Screen results) method Cut-off = 200 ng/mL Benzodiazepines Negative Normal (applies Benzodiazepines, [facility] [Mass/volume] in to non-numeric Urine Health S ystem Urine results) Cut-off = 200 ng/mL Cocaine Positive Abnormal (applies Cocaine [facility] metabolites.other to non-numeric Metabolite Health System [Mass/volume] in Urine results) Screen, Urine Cut-off = 300 ng/mL Methadone Negative Normal (applies to Methadone Level, [facility] [Mass/volume] in non-numeric Urine System Urine results) Cut-off = 300 ng/mL [id number],Urine Negative Normal (applies to Opiate 300, [facility] Health non-numeric results) Urine System Cut-off = 300 ng/mL Phencyclidine Negative Normal (applies Phencyclidine, Urine [facility] [Mass/volume] in to non-numeric Health S ystem Urine results) Cut-off = 25 ng/mL THC Negative Normal (applies to non-numeric resul ts) THC [facility] ID Date Data Source [id number] 02/04/2019 04:16:09 PM EST [facility] Name Value Range Interpretation Description Data Source(s ) Supporting Code Document(s ) Anti-IgG Negative Normal (applies to Anti-IgG [facility] non-numeric [facility] System results) DirectAn Negative Normal (applies to Direct [facility] tiglobul non-numeric Antiglobulin Health System inTest. results) Test. ID Date Data Source [id number] 02/04/2019 04:16:09 PM EST [facility] Name Value Range Interpretation Description Data Sup porting Code Source(s) Document(s ) Type B Normal (applies Type [facility] to non-numeric Health results) System D Ab [Titer] in Rh Normal (applies Rh Factor, [facility] Serum or Plasma Positive to non-numeric Whole Blood Health results) System AntibodyScreen Negative Normal (applies Antibody [facility] to non-numeric Screen Health results) System ID Date Data Source [id number] 02/04/2019 04:16:09 PM EST [facility] Name Value Range Interpretation Description Data Sup porting Code Source(s) Document(s ) aPTT in Blood 25.8 Normal (applies Activated [facility] by Coagulation {Seconds to non-numeric Partial Health assay } results) Thromboplastin System Time ID Date Data Source [id number] 02/04/2019 04:16:09 PM EST [facility] Name Value Range Interpretation Description Data Sup porting Code Source(s) Document(s ) Prothrombintim 10.90 Normal (applies Prothrombin [facility] e(PT) to non-numeric time (PT) Health System results) INR in Blood 1.02 Normal (applies INR Result [facility] by Coagulation {Ratio} to non-numeric Health Sys tem assay results) Normal = 0.7-1.1Therapeutic = 2.0-3.0Mec hanical Heart = 3.0-4.5 ID Date Data Source [id number] 02/04/2019 04:16:09 PM EST [facility] Name Value Range Interpretation Description Data Sup porting Code Source(s) Document(s ) Phenytoin Less Below low normal Phenytoin [facility] [Mass/volume] than 0.5 Level, Serum Health System in Serum or Plasma ID Date Data Source [id number] 02/04/2019 04:16:09 PM EST [facility] Name Value Range Interpretation Description Data Sup porting Code Source(s) Document(s ) Phenobarbital Less Below low normal PHENobarbital Jono savi [Mass/volume] in than Level, Serum [facility] Serum or Plasma 1.10 System ID Date Data Source [id number] 02/04/2019 04:16:09 PM EST [facility] System Name Value Range Interpretation Description Data Sup porting Code Source(s) Document(s ) Color DARK YELLOW Abnormal Color [facility] Previously (applies to Health released as non-numeric System YELLOW on results) 08/13/2011, 3:[place] [id number] - Appearance of TURBID Abnormal Urine [facility] Urine (applies to Appearance [facility] non-numeric System results) Previously released as CLEAR on 08/13/19 12, 3:[place] [id number] - Specific gravity Greater than Normal (applies to Urine Spe cific [facility] of Urine =1.030 non-numeric [place] System results) pH.. 6.0 {pH_units} Normal (applies to pH.. [facility] non-numeric System results) Glucose,UA NEGATIVE Normal (applies to Glucose, UA [facility] non-numeric System results) Negative Protein 100 mg/dl Normal (applies Protein [facility] [Mass/volume] in to non-numeric [facility] S yste Serum or Plasma results) BilirubinUrine NEGATIVE Normal (applies Bilirubin Urine [facility] to non-numeric Health System results) Urobilinogen 0.20 {eu/dL} Normal (applies Urobilinogen UA [facility] [Mass/volume] in to non-[facility] S yste Urine results) Ketones TRACE Normal (applies Ketones UA [facility] [Mass/volume] in to non-[facility] yste Urine results) Negative Nitrate+Nitrite NEGATIVE Normal (applies to Nitrite [facility] [Mass/volume] in non-numeric results) Sy stem Unspecified specimen Negative Leukocyte esterase SMALL Normal (applies to Leukocyte Es terase [facility] [Units/volume] in non-numeric Concentration [facility] System Urine results) Negative Leukocytes [#/volume] 5-10 Normal (applies to White Blood Cells [facility] in Unspecified non-numeric System specimen by Automated results) count RedBloodCells LARGE Normal (applies to Red Blood Cells [facility] non-[facility] System results) Epithelial cells 2-5 Normal (applies to Epithelial Krystal ls [facility] [Presence] in non-[facility] System Unspecified specimen results) by Wet preparation Mucus FEW Normal (applies to Mucus [facility] non-numeric System results) Bacteria [Presence] LARGE Normal ([facility] in Unspecified non-numeric System specimen results) UrineBlood LARGE Abnormal (applies Urine Blood [facility] e [facility] to non-numeric System results) ID Date Data Source [id number] 02/04/2019 04:16:09 PM EST [facility] He alth System Name Value Range Interpretation Description Data Sup porting Code Source(s) Document(s ) Leukocytes 11.8 Above high normal WBC Count [facility] [#/volume] in {10\\S\\3_ Health System Unspecified uL} specimen by Automated count Previously released as 11.5 on , 11:[place] [id number] - Erythrocytes 4.99 {10\\S\\6_uL} Normal (applies to RBC Count [facility] [#/volume] in Blood non-numeric System by Automated count results) Previously released as 4.98 on , 11:[place] [id number] - Hemoglobin 12.0 {gm/dL} Normal (applies Hemoglobin, Whole [facility] [Mass/volume] in to non-[facility] Blood [facility] S ystem Blood results) Previously released as 11.9 on , 11:[place] [id number] - DUPL Hematocrit [Volume 38.7 % Normal (applies to Hematocri t, Whole [facility] Health Fraction] of Blood non-numeric Blood System results) Previously released as 38.6 on , 11:31 [place] [id number] - Erythrocyte mean 77.6 fl Below low normal [facility] system System corpuscular volume [Entitic volume] by Automated count Previously released as 77.5 on , 11:[place] [id number] - Erythrocyte mean 24.0 pg Below low normal [facility] System corpuscular hemoglobin [Entitic mass] by Automated count Previously released as 23.9 on , 11:31 [place] [id number] - Erythrocyte mean 31.0 {gm/dL} Below low normal [facility] corpuscular hemoglobin System concentration [Mass/volume] by Automated count Previously released as 30.8 on , 11:31 PM [place] [id number] - Erythrocyte 19.6 % Above high RDW [facility] distribution width normal System [Entitic volume] by Automated count Platelets [#/volume] 411 Above high Platelet Count [facility] in Plasma by {10\\S\\3_uL} normal System Automated count Previously released as 435 on , 11:[place] [id number] - Platelet mean volume 10.3 fl Normal (applies to MPV [facility] [Entitic volume] in non-numeric results) System Blood by Automated count Previously released as 10.5 on , 11:[place] [id number] - Monocytes 0.9 {10\\S\\3_uL} Normal (applies to Monocyte Count [facility] [#/volume] in non-numeric Health System Blood by Manual results) count Previously released as 0.9 on , 11:[place] [id number] - Eosinophils 0.2 {10\\S\\3} Normal (applies to Eosinophil Count [facility] [#/volume] in non-numeric Blood Health System Blood results) Previously released as 0.2 on , 11:31 [place] [id number] - Neutrophils 7.9 {10\\S\\3_uL} Normal (applies Absolute [facility] [#/volume] in to non-numeric Neutrophil Health Sys tem Body fluid results) Count Basophils 0.05 {10\\S\\3_uL} Normal (applies Basophil Count [facility] [#/volume] in to non-numeric Health Syst em Blood by results) Automated count Previously released as 0.04 on , 11:31 [place] [id number] - Lymphocyte percent 2.7 {10\\S\\3_uL} Normal (applies Lymphocyt e [facility] differential count to non-numeric Absolute [facility] System (procedure) results) Previously released as 2.5 on , 11:[place] [id number] - Neutrophils/100 67.5 % Normal (applies to Neutrophil % [facility] leukocytes in Blood by non-numeric Syste m Automated count results) Previously released as 69.0 on , 11:31 [place] [id number] - Monocytes/100 7.5 % Normal (applies to Monocyte % [facility] leukocytes in Blood non-numeric results) System Previously released as 7.6 on , 11:[place] [id number] - Eosinophils/100 2.0 % Normal (applies to Eosinophil % [facility] leukocytes in non-numeric results) Systviky renee Unspecified specimen Previously released as 1.8 on , 11:31 [place] [id number] - Basophils/100 0.4 % Normal (applies to Basophil % [facility] leukocytes in non-numeric results) Systviky m Unspecified specimen by Manual count Previously released as 0.3 on , 11:31 [place] [id number] - Lymphocytes 22.6 % Normal (applies to Lymphocyte % [facility] Health [#/volume] in Blood non-numeric results) System by Automated count Previously released as 21.3 on , 11:[place] [id number] - ID Date Data Source [id number] 02/04/2019 04:16:09 PM EST [facility] Name Value Range Interpretation Description Data Sup porting Code Source(s) Document(s ) Sodium 141 Normal (applies Sodium, Serum [facility] [Moles/volume mmol/L to non-numeric Health Syst em ] in Serum or results) Plasma Potassium 3.7 Normal (applies Potassium, [facility] [Mass/volume] mmol/L to non-numeric Serum Health Syst em in Serum or results) Plasma Chloride 107 Normal (applies Chloride, [facility] [Moles/volume mmol/L to non-numeric Serum Health Syst em ] in Serum or results) Plasma Carbon 21.0 Below low normal CO2, Serum [facility] dioxide, mmol/L Health System total [Moles/volume ] in Serum or Plasma Glucose 104 Normal (applies Glucose, Serum [facility] [Mass/volume] mg/dL to non-numeric Health Syst em in Serum or results) Plasma Urea nitrogen 16 mg/dl Normal (applies Blood Urea [facility] [Mass/volume] to non-numeric Nitrogen, Health Syst em in Serum or results) Serum Plasma Creatinine 0.90 Normal (applies Creatinine, [facility] [Mass/volume] mg/dl to non-numeric Serum Health Syst em in Serum or results) Plasma Calcium 9.7 Normal (applies Calcium, Total [facility] [Mass/volume] mg/dl to non-numeric Serum Health Syst em in Serum or results) Plasma Anion gap in 13.00 Above high normal Anion Gap [facility] Serum or mmol/L Health System Plasma ID Date Data Source [id number] 02/04/2019 04:16:09 PM EST [facility] Name Value Range Interpretation Description Data Sup porting Code Source(s) Document(s ) Color YELLOW Normal (applies Color [facility] to non-numeric Health results) System Appearance of CLEAR Normal (applies Urine [facility] Urine to non-numeric Appearance Health results) System Specific 1.025 Normal (applies Urine [facility] gravity of to non-numeric Specific Health Urine results) [place] System pH.. 6.5 Normal (applies pH.. [facility] {pH_units} to non-numeric Health results) System Glucose,UA NEGATIVE Normal (applies Glucose, UA [facility] to non-numeric Health results) System Negative Protein 100 mg/dl Normal (applies Protein [facility] [Mass/volume] in to non-numeric Health S te Serum or Plasma results) BilirubinUrine NEGATIVE Normal (applies Bilirubin Urine [facility] to non-numeric Health System results) Urobilinogen 0.20 {eu/dL} Normal (applies Urobilinogen UA [facility] [Mass/volume] in to non-numeric Health S yste Urine results) Ketones NEGATIVE Normal (applies Ketones UA [facility] [Mass/volume] in to non-numeric Health S yste Urine results) Negative Nitrate+Nitrite NEGATIVE Normal (applies to Nitrite [facility] Health [Mass/volume] in non-numeric results) Sy stem Unspecified specimen Negative Leukocyte esterase SMALL Normal (applies to [facility] [Units/volume] in non-numeric Concentration Health System Urine results) Negative Leukocytes [#/volume] 2-5 Normal (applies to White Blood Cells [facility] Health in Unspecified non-numeric System specimen by Automated results) count RedBloodCells 25-30 Normal (applies [facility] non-numeric [facility] results) Epithelial cells RARE Normal (applies to Epithelial Krystal ls [facility] Health [Presence] in non-numeric System Unspecified specimen results) by Wet preparation Bacteria [Presence] RARE Normal (applies [facility] in Unspecified non-numeric System specimen results) UrineBlood LARGE Abnormal (applies Urine Blood [facility] to non-numeric System results) ID Date Data Source [id number] 02/04/2019 04:16:09 PM EST [facility] Name Value Range Interpretation Description Data Sup porting Code Source(s) Document(s ) Amphetamine NEGATIVE Normal (applies Amphetamine [facility] [Mass/volume] to non-numeric Level, Urine Health in Urine results) System Cut-off = 1000 ng/mL Barbiturates POSITIVE Abnormal (applies Barbiturate [facility] [Mass/volume] in to non-numeric Screen, Urine Heal th System Urine by Screen results) method Cut-off = 200 ng/mL Benzodiazepines NEGATIVE Normal (applies Benzodiazepines, [facility] [Mass/volume] in to non-numeric Urine Health S yste Urine results) Cut-off = 200 ng/mL Cocaine POSITIVE Abnormal (applies Cocaine [facility] metabolites.other to non-numeric Metabolite Health System [Mass/volume] in Urine results) Screen, Urine Cut-off = 300 ng/mL Methadone NEGATIVE Normal (applies to Methadone Level, [facility] [Mass/volume] in non-numeric Urine System Urine results) Cut-off = 300 ng/mL [id number],Urine NEGATIVE Normal (applies to Opiate 300, [facility] non-numeric results) Urine System Cut-off = 300 ng/mL Phencyclidine NEGATIVE Normal (applies Phencyclidine, Urine [facility] [Mass/volume] in to non-numeric Health S yste Urine results) Cut-off = 25 ng/mL THC NEGATIVE Normal (applies to non-numeric resul ts) THC [facility] System ID Date Data Source [id number] 02/04/2019 04:16:09 PM EST [facility] System Name Value Range Interpretation Description Data Sup porting Code Source(s) Document(s ) Color YELLOW Normal (applies Color [facility] to non-numeric Health results) System Appearance of CLEAR Normal (applies Urine [facility] Urine to non-numeric Appearance Health results) System Specific Greater Normal (applies Urine [facility] gravity of than =1.030 to non-numeric Specific Health Urine results) [place] System pH.. 6.0 Normal (applies pH.. [facility] {pH_units} to non-numeric Health results) System Glucose,UA NEGATIVE Normal (applies Glucose, UA [facility] to non-numeric Health results) System Negative Protein 100 mg/dl Normal (applies Protein [facility] [Mass/volume] in to non-numeric Health S ystem Serum or Plasma results) BilirubinUrine NEGATIVE Normal (applies Bilirubin Urine [facility] to non-numeric Health System results) Urobilinogen 0.20 {eu/dL} Normal (applies Urobilinogen UA [facility] [Mass/volume] in to non-numeric Health S te Urine results) Ketones NEGATIVE Normal (applies Ketones UA [facility] [Mass/volume] in to non-numeric Health S te Urine results) Negative Nitrate+Nitrite NEGATIVE Normal (applies to Nitrite [facility] Health [Mass/volume] in non-numeric results) Sy stem Unspecified specimen Negative Leukocyte esterase SMALL Normal (applies to Leukocyte Es terase [facility] [Units/volume] in non-numeric Concentration [facility] System Urine results) Negative Leukocytes [#/volume] 0-2 Normal (applies to White Blood Cells [facility] in Unspecified non-numeric System specimen by Automated results) count RedBloodCells MANY Normal ([facility]) Epithelial cells 3-5 Normal (applies to Epithelial Krystal ls [facility] [Presence] in non-numeric System Unspecified specimen results) by Wet preparation Bacteria [Presence] RARE Normal ([facility] System specimen results) UrineBlood LARGE Abnormal (applies Urine Blood [facility] e Health to non-numeric System results) ID Date Data Source [id number] 02/04/2019 04:16:09 PM EST [facility] Name Value Range Interpretation Description Data Sup porting Code Source(s) Document(s ) Sodium 135 Below low normal Sodium, Serum [facility] [Moles/volume mmol/L Health System ] in Serum or Plasma Potassium 4.7 Normal (applies Potassium, [facility] [Mass/volume] mmol/L to non-numeric Serum Health Syst em in Serum or results) Plasma Glucose 99 mg/dL Normal (applies Glucose, Serum [facility] [Mass/volume] to non-numeric Health Syst em in Serum or results) Plasma Carbon 23.0 Normal (applies CO2, Serum [facility] dioxide, mmol/L to non-[facility] Health System total results) [Moles/volume ] in Serum or Plasma Chloride 104 Normal (applies Chloride, [facility] [Moles/volume mmol/L to non-numeric Serum Health Syst em ] in Serum or results) Plasma Urea nitrogen 8 mg/dl Normal (applies Blood Urea [facility] [Mass/volume] to non-numeric Nitrogen, Health Syst em in Serum or results) Serum Plasma Calcium 8.7 Normal (applies Calcium, Total [facility] [Mass/volume] mg/dl to non-numeric Serum Health Syst em in Serum or results) Plasma Creatinine 0.76 Normal (applies Creatinine, [facility] [Mass/volume] mg/dl to non-numeric Serum Health Syst em in Serum or results) Plasma Anion gap in 8.00 Normal (applies Anion Gap [facility] Serum or mmol/L to non-numeric Health System Plasma results) ID Date Data Source [id number] 02/04/2019 04:16:09 PM EST [facility] Name Value Range Interpretation Description Data Sup porting Code Source(s) Document(s ) Erythrocytes 4.34 Normal (applies RBC Count [facility] [#/volume] in {10\\S\\6_ to non-numeric Health Blood by uL} results) System Automated count Leukocytes 8.2 Normal (applies WBC Count [facility] [#/volume] in {10\\S\\3_ to non-numeric Health Unspecified uL} results) System specimen by Automated count Erythrocyte mean 74.2 fl Below low normal MCV [facility] corpuscular Health volume [Entitic System volume] by Automated count Hemoglobin 10.1 Below low normal Hemoglobin, [facility] [Mass/volume] in {gm/dL} Whole Blood Health Blood System Hematocrit 32.2 % Below low normal Hematocrit, [facility] [Volume Whole Blood Health Fraction] of System Blood Erythrocyte mean 23.3 pg Below low normal [facility] corpuscular Health hemoglobin System [Entitic mass] by Automated count Erythrocyte 17.1 % Above high normal RDW [facility] distribution Health width [Entitic System volume] by Automated count Erythrocyte mean 31.4 Below low normal [facility] corpuscular {gm/dL} Health hemoglobin System concentration [Mass/volume] by Automated count Platelets 529 Above high normal Platelet [facility] [#/volume] in {10\\S\\3_ Count Health Plasma by uL} System Automated count Platelet mean 9.3 fl Normal (applies MPV [facility] volume [Entitic to non-numeric Health volume] in Blood results) System by Automated count ID Date Data Source [id number] 02/04/2019 04:16:09 PM EST [facility]ad System Name Value Range Interpretation Description Data Sup porting Code Source(s) Document(s ) Sodium 135 mmol/L Below low Sodium, [facility] [Moles/volume] normal Serum Health in Serum or System Plasma Chloride 105 mmol/L Normal (applies Chloride, [facility] [Moles/volume] to non-numeric Serum Health in Serum or results) System Plasma Potassium 4.5 mmol/L Normal (applies Potassium, [facility] [Mass/volume] to non-numeric Serum Health in Serum or results) System Plasma Carbon dioxide, 23.0 mmol/L Normal (applies CO2, Serum Jono savi total to non-numeric Health [Moles/volume] results) System in Serum or Plasma Glucose 104 mg/dL Normal (applies Glucose, [facility] [Mass/volume] to non-numeric Serum Health in Serum or results) System Plasma TotalProtein 5.6 mg/dl Below low Total [facility] normal Protein Health System Creatinine 0.78 mg/dl Normal (applies Creatinine, [facility] [Mass/volume] to non-numeric Serum Health in Serum or results) System Plasma Urea nitrogen 8 mg/dl Normal (applies Blood Urea [facility] [Mass/volume] to non-numeric Nitrogen, Health in Serum or results) Serum System Plasma Alkaline 68 {IU/L} Normal (applies Alkaline [facility] phosphatase to non-numeric Phosphatase, Health isoenzymes results) Serum System [Enzymatic activity/volume ] in Serum or Plasma by Heat stability Bilirubin.total 0.2 mg/dl Normal (applies Bilirubin, [facility] [Mass/volume] to non-numeric Serum Total Health in Serum or results) System Plasma Albumin 3.1 {gm/dl} Below low Albumin, [facility] [Mass/volume] normal Serum Health in Serum or System Plasma Aspartate 14 {IU/L} Normal (applies Aspartate [facility] aminotransferas to non-numeric Transaminase Health e [Enzymatic results) , Serum System activity/volume ] in Serum or Plasma by With P-5'-P Alanine 12 {IU/L} Normal (applies Alanine [facility] aminotransferas to non-numeric Aminotransfe Health e [Enzymatic results) rase, Serum System activity/volume ] in Serum or Plasma I.Phosphorus 3.9 mg/dl Normal (applies I. [facility] to non-numeric Phosphorus Health results) System Calcium 8.7 mg/dl Normal (applies Calcium, [facility] [Mass/volume] to non-numeric Total Serum Health in Serum or results) System Plasma A/GRatio 1.24 Normal (applies A/G Ratio [facility] to non-numeric Health results) System Urate 4.6 mg/dl Normal (applies Uric Acid, [facility] [Mass/volume] to non-numeric Serum Health in Serum or results) System Plasma Anion gap in 7.00 mmol/L Below low Anion Gap [facility] Serum or Plasma normal Health System Glomerular Greater than Normal (applies GFR [facility] filtration 60 eGFR will to non-numeric Health rate/1.73 sq provide results) System M.predicted clinicians [Volume with a more Rate/Area] in accurate Serum or Plasma indicator of by renal function Creatinine-base then the serum d formula creatinine. (CKD-EPI) The eGFR is automatically calculated from an empiric formula (endorsed by the [employer]) which incorporates age, sex, and race.Clinician s may notice surprisingly low GFR's with serum creatinine values within normal range- particularly in elderly women (with low muscle mass).In the hospital setting, the eGFR should add an element of safety in drug dosing, in assessing the risk of IV contrast administration , and in assessing vascular risk.The NKF staging system is as follows:Normal : eGFR >90 with no kidney markersStage 1: eGFR >90 with kidney markers*Stage 2: eGFR 60-89Stage 3: eGFR 30-59Stage 4: eGFR 15-29Stage 5: eGFR <15 (usually requiring dialysis)*Rodney ers include: Proteinuria, Hematuria, abnormal imaging-studie s, or other blood or urine test abnormalities ID Date Data Source [id number] 02/04/2019 04:16:09 PM EST [facility] System Name Value Range Interpretation Description Data Source(s ) Supporting Code Document(s ) Iron 11 ug/dL Below low normal Iron, Serum [facility] [Mass/volum Health System e] in Serum or Plasma ID Date Data Source [id number] 02/04/2019 04:16:09 PM EST [facility] System Name Value Range Interpretation Description Data Sup porting Code Source(s) Document(s ) Erythrocytes 4.51 Normal (applies RBC Count [facility] [#/volume] in {10\\S\\6_ to non-numeric Health Blood by uL} results) System Automated count Leukocytes 10.5 Normal (applies WBC Count [facility] [#/volume] in {10\\S\\3_ to non-numeric Health Unspecified uL} results) System specimen by Automated count Hematocrit 32.9 % Below low normal Hematocrit, [facility] [Volume Whole Blood Health Fraction] of System Blood Hemoglobin 10.4 Below low normal Hemoglobin, [facility] [Mass/volume] in {gm/dL} Whole Blood Health Blood System Erythrocyte mean 72.9 fl Below low normal MCV [facility] corpuscular Health volume [Entitic System volume] by Automated count Erythrocyte mean 23.1 pg Below low normal MCH [facility] corpuscular Health hemoglobin System [Entitic mass] by Automated count Erythrocyte mean 31.6 Below low normal MCHC [facility] corpuscular {gm/dL} Health hemoglobin System concentration [Mass/volume] by Automated count Erythrocyte 16.7 % Above high normal RDW [facility] distribution Health width [Entitic System volume] by Automated count Platelet mean 9.0 fl Normal (applies MPV [facility] volume [Entitic to non-numeric Health volume] in Blood results) System by Automated count Platelets 519 Above high normal Platelet [facility] [#/volume] in {10\\S\\3_ Count Health Plasma by uL} System Automated count Monocytes 0.8 Normal (applies Monocyte [facility] [#/volume] in {10\\S\\3_ to non-numeric Count Health Blood by Manual uL} results) System count Neutrophils 7.7 Normal (applies Absolute [facility] [#/volume] in {10\\S\\3_ to non-numeric Neutrophil Health Body fluid uL} results) Count System Eosinophils 0.1 Normal (applies Eosinophil [facility] [#/volume] in {10\\S\\3} to non-numeric Count Blood Health Blood results) System Lymphocyte 1.8 Normal (applies Lymphocyte [facility] percent {10\\S\\3_ to non-numeric Absolute Health differential uL} results) System count (procedure) Basophils 0.03 Normal (applies Basophil [facility] [#/volume] in {10\\S\\3_ to non-numeric Count Health Blood by uL} results) System Automated count Neutrophils/100 74.9 % Normal (applies Neutrophil % Jono savi leukocytes in to non-numeric Health Blood by results) System Automated count Eosinophils/100 0.8 % Below low normal Eosinophil % [facility] leukocytes in Health Unspecified System specimen Monocytes/100 7.1 % Normal (applies Monocyte % [facility] leukocytes in to non-numeric Health Blood results) System Basophils/100 0.3 % Normal (applies Basophil % [facility] leukocytes in to non-numeric Health Unspecified results) System specimen by Manual count Lymphocytes 16.9 % Below low normal Lymphocyte % [facility] [#/volume] in Health Blood by System Automated count ID Date Data Source [id number] 02/04/2019 04:16:09 PM EST [facility] Name Value Range Interpretation Description Data Sup porting Code Source(s) Document(s ) Sodium 134 Below low normal Sodium, Serum [facility] [Moles/volume mmol/L Health System ] in Serum or Plasma Potassium 4.8 Normal (applies Potassium, [facility] [Mass/volume] mmol/L to non-numeric Serum Health Syst em in Serum or results) Plasma Chloride 103 Normal (applies Chloride, [facility] [Moles/volume mmol/L to non-numeric Serum Health Syst em ] in Serum or results) Plasma Carbon 24.0 Normal (applies CO2, Serum [facility] dioxide, mmol/L to non-numeric Health System total results) [Moles/volume ] in Serum or Plasma Glucose 92 mg/dL Normal (applies Glucose, Serum [facility] [Mass/volume] to non-numeric Health Syst em in Serum or results) Plasma OK TotalProtein 6.2 mg/dl Below low Total Protein [facility] normal Health System Urea nitrogen 6 mg/dl Below low Blood Urea [facility] [Mass/volume] in Serum normal Nitrogen, Serum H ealth System or Plasma Creatinine 0.70 mg/dl Normal Creatinine, [facility] [Mass/volume] in Serum (applies to Serum Healt h System or Plasma non-numeric results) Alkaline phosphatase 67 {IU/L} Normal Alkaline [facility] isoenzymes [Enzymatic (applies to Phosphatase, [facility] System activity/volume] in non-numeric Serum Serum or Plasma by results) Heat stability Bilirubin.total 0.4 mg/dl Normal Bilirubin, [facility] [Mass/volume] in Serum (applies to Serum Total [facility] System or Plasma non-numeric results) I.Phosphorus 3.8 mg/dl Normal I. Phosphorus [facility] (applies to Health System non-numeric results) Albumin [Mass/volume] 3.5 {gm/dl} Below low Albumin, Serum [facility] in Serum or Plasma normal Health Syst em Aspartate 16 {IU/L} Normal Aspartate [facility] aminotransferase (applies to Transaminase, Health System [Enzymatic non-numeric Serum activity/volume] in results) Serum or Plasma by With P-5'-P Alanine 6 {IU/L} Below low Alanine [facility] aminotransferase normal Aminotransferas Health System [Enzymatic e, Serum activity/volume] in Serum or Plasma Calcium [Mass/volume] 9.4 mg/dl Normal Calcium, Total [facility] in Serum or Plasma (applies to Serum Health Sy stem non-numeric results) A/GRatio 1.30 Normal A/G Ratio [facility] (applies to Health System non-numeric results) Urate [Mass/volume] in 5.4 mg/dl Normal Uric Acid, [facility] Serum or Plasma (applies to Serum Health Syste m non-numeric results) Anion gap in Serum or 7.00 mmol/L Below low Anion Gap [facility] Plasma normal Health System Glomerular filtration Greater than 60 Normal GFR [facility] rate/1.73 sq eGFR will provide (applies to Health System M.predicted [Volume clinicians with a non-numeric Rate/Area] in Serum or more accurate results) Plasma by indicator of renal Creatinine-based function then the formula (CKD-EPI) serum creatinine. The eGFR is automatically calculated from an empiric formula (endorsed by the [employer]) which incorporates age, sex, and race.Clinicians may notice surprisingly low GFR's with serum creatinine values within normal range- particularly in elderly women (with low muscle mass).In the hospital setting, the eGFR should add an element of safety in drug dosing, in assessing the risk of IV contrast administration, and in assessing vascular risk.The NKF staging system is as follows:Normal: eGFR >90 with no kidney markersStage 1: eGFR >90 with kidney markers*Stage 2: eGFR 60-89Stage 3: eGFR 30-59Stage 4: eGFR 15-29Stage 5: eGFR <15 (usually requiring dialysis)*Markers include: Proteinuria, Hematuria, abnormal imaging-studies, or other blood or urine test abnormalities ID Date Data Source [id number] 02/04/2019 04:16:09 PM EST [facility] Name Value Range Interpretation Code Description Data Nany rce(s) Supporting Document(s ) Glucose,U NEGATIVE Normal (applies to Glucose, UA [facility] A non-numeric Health System results) Negative Protein NEGATIVE Normal (applies Protein [facility] [Mass/volume] in to non-numeric Health S ystem Serum or Plasma results) BilirubinUrine NEGATIVE Normal (applies Bilirubin Urine [facility] to non-numeric Health System results) Urobilinogen 0.20 {eu/dL} Normal (applies Urobilinogen UA [facility] [Mass/volume] in to non-numeric Health S ystem Urine results) pH.. 5.5 {pH_units} Normal (applies pH.. [facility] to non-numeric Health System results) Ketones NEGATIVE Normal (applies Ketones UA [facility] [Mass/volume] in to non-numeric Health S ystem Urine results) Negative Leukocyte esterase NEGATIVE Normal (applies Leukocyte Shawna ase [facility] [Units/volume] in to non-numeric Concentration a lt System Urine results) Negative Nitrate+Nitrite NEGATIVE Normal (applies to Nitrite [facility] Health [Mass/volume] in non-numeric results) Sy stem Unspecified specimen Negative Appearance of CLEAR Normal (applies to Urine Appearance [facility] Urine non-numeric System results) UrineBlood TRACE-LYSED Abnormal (applies Urine Blood [facility] to non-numeric System results) Specific gravity 1.025 Normal (applies to Urine Specific [facility] Health of Urine non-numeric [place] System results) Color YELLOW Normal (applies to Color [facility] non-numeric System results) ID Date Data Source [id number] 02/04/2019 04:16:09 PM EST [facility] Name Value Range Interpretation Description Data Sup porting Code Source(s) Document(s ) Prothrombintim 10.90 Normal (applies Prothrombin [facility] e(PT) to non-numeric time (PT) Health System results) INR in Blood 1.02 Below low normal INR Result [facility] by Coagulation {Ratio} Health System assay Normal = 0.7-1.1Therapeutic = 2.0-3.0Mec hanical Heart = 3.0-4.5 ID Date Data Source [id number] 02/04/2019 04:16:09 PM EST [facility] Ruy alth System Name Value Range Interpretation Description Data Sup porting Code Source(s) Document(s ) Leukocytes 5.8 Normal (applies WBC Count [facility] [#/volume] in {10\\S\\3_ to non-numeric Health Unspecified uL} results) System specimen by Automated count Erythrocytes 4.62 Normal (applies RBC Count [facility] [#/volume] in {10\\S\\6_ to non-numeric Health Blood by uL} results) System Automated count Hemoglobin 10.4 Below low normal Hemoglobin, [facility] [Mass/volume] in {gm/dL} Whole Blood Health Blood System Hematocrit 33.7 % Below low normal Hematocrit, [facility] [Volume Whole Blood Health Fraction] of System Blood Erythrocyte mean 22.5 pg Below low normal MCH [facility] corpuscular Health hemoglobin System [Entitic mass] by Automated count Erythrocyte mean 72.9 fl Below low normal MCV [facility] corpuscular Health volume [Entitic System volume] by Automated count Erythrocyte 16.8 % Above high normal RDW [facility] distribution Health width [Entitic System volume] by Automated count Erythrocyte mean 30.9 Below low normal MCHC [facility] corpuscular {gm/dL} Health hemoglobin System concentration [Mass/volume] by Automated count Platelets 635 Above high normal Platelet [facility] [#/volume] in {10\\S\\3_ Count Health Plasma by uL} System Automated count Platelet mean 9.5 fl Normal (applies MPV [facility] volume [Entitic to non-numeric Health volume] in Blood results) System by Automated count ID Date Data Source [id number] 02/04/2019 04:16:09 PM OSCAR [facility] R[facility] System Name Value Range Interpretation Description Data Sup porting Code Source(s) Document(s ) Potassium 4.6 mmol/L Normal (applies Potassium, [facility] [Mass/volume] to non-numeric Serum Health in Serum or results) System Plasma Sodium 137 mmol/L Normal (applies Sodium, [facility] [Moles/volume] to non-numeric Serum Health in Serum or results) System Plasma Chloride 105 mmol/L Normal (applies Chloride, [facility] [Moles/volume] to non-numeric Serum Health in Serum or results) System Plasma Carbon dioxide, 20.0 mmol/L Below low CO2, Serum [facility] total normal Health [Moles/volume] System in Serum or Plasma Glucose 89 mg/dL Normal (applies Glucose, [facility] [Mass/volume] to non-numeric Serum Health in Serum or results) System Plasma TotalProtein 6.5 mg/dl Normal (applies Total [facility] to non-numeric Protein Health results) System Creatinine 0.70 mg/dl Normal (applies Creatinine, [facility] [Mass/volume] to non-numeric Serum Health in Serum or results) System Plasma Urea nitrogen 8 mg/dl Normal (applies Blood Urea [facility] [Mass/volume] to non-numeric Nitrogen, Health in Serum or results) Serum System Plasma Alkaline 61 {IU/L} Normal (applies Alkaline [facility] phosphatase to non-numeric Phosphatase, Health isoenzymes results) Serum System [Enzymatic activity/volume ] in Serum or Plasma by Heat stability Bilirubin.total 0.1 mg/dl Below low Bilirubin, [facility] [Mass/volume] normal Serum Total Health in Serum or System Plasma Aspartate 17 {IU/L} Normal (applies Aspartate [facility] aminotransferas to non-numeric Transaminase Health e [Enzymatic results) , Serum System activity/volume ] in Serum or Plasma by With P-5'-P Albumin 3.7 {gm/dl} Below low Albumin, [facility] [Mass/volume] normal Serum Health in Serum or System Plasma I.Phosphorus 4.3 mg/dl Normal (applies I. [facility] to non-numeric Phosphorus Health results) System Alanine 9 {IU/L} Normal (applies Alanine [facility] aminotransferas to non-numeric Aminotransfe Health e [Enzymatic results) rase, Serum System activity/volume ] in Serum or Plasma A/GRatio 1.32 Normal (applies A/G Ratio [facility] to non-numeric Health results) System Calcium 9.3 mg/dl Normal (applies Calcium, [facility] [Mass/volume] to non-numeric Total Serum Health in Serum or results) System Plasma Urate 5.0 mg/dl Normal (applies Uric Acid, [facility] [Mass/volume] to non-numeric Serum Health in Serum or results) System Plasma Anion gap in 12.00 mmol/L Normal (applies Anion Gap [facility] Serum or Plasma to non-numeric Health results) System Glomerular Greater than Normal (applies GFR [facility] filtration 60 eGFR will to non-numeric Health rate/1.73 sq provide results) System M.predicted clinicians [Volume with a more Rate/Area] in accurate Serum or Plasma indicator of by renal function Creatinine-base then the serum d formula creatinine. (CKD-EPI) The eGFR is automatically calculated from an empiric formula (endorsed by the National Kidney Foundation) which incorporates age, sex, and race.Clinician s may notice surprisingly low GFR's with serum creatinine values within normal range- particularly in elderly women (with low muscle mass).In the hospital setting, the eGFR should add an element of safety in drug dosing, in assessing the risk of IV contrast administration , and in assessing vascular risk.The NKF staging system is as follows:Normal : eGFR >90 with no kidney markersStage 1: eGFR >90 with kidney markers*Stage 2: eGFR 60-89Stage 3: eGFR 30-59Stage 4: eGFR 15-29Stage 5: eGFR <15 (usually requiring dialysis)*Rodney ers include: Proteinuria, Hematuria, abnormal imaging-studie s, or other blood or urine test abnormalities ID Date Data Source [id number] 02/04/2019 04:16:09 PM EST [facility] Name Value Range Interpretation Description Data Sup porting Code Source(s) Document(s ) Phenobarbital 43.0 Above upper PHENobarbital [facility] [Mass/volume] in ug/ml panic limits Level, Serum Health Serum or Plasma System ID Date Data Source [id number] 02/04/2019 04:16:09 PM EST [facility] Name Value Range Interpretation Description Data Sup porting Code Source(s) Document(s ) Amphetamine Negative Normal (applies Amphetamine [facility] [Mass/volume] to non-numeric Level, Urine Health in Urine results) System Cut-off = 1000 ng/mL Barbiturates Positive Abnormal (applies Barbiturate [facility] [Mass/volume] in to non-numeric Screen, Urine Heal th System Urine by Screen results) method Cut-off = 200 ng/mL Benzodiazepines Negative Normal (applies Benzodiazepines, [facility] [Mass/volume] in to non-numeric Urine Health S ystem Urine results) Cut-off = 300 ng/mL Cocaine Negative Normal (applies Cocaine [facility] metabolites.other to non-numeric Metabolite Health System [Mass/volume] in Urine results) Screen, Urine Cut-off = 300 ng/mL Methadone Negative Normal (applies to Methadone Level, [facility] Health [Mass/volume] in non-numeric Urine System Urine results) Cut-off = 300 ng/mL [id number],Urine Negative Normal (applies to Opiate 300, [facility] non-numeric results) Urine System Cut-off = 300 ng/mLPreviously released a s Negative on 12/19/2010, 7:37 [place] [id number] - Phencyclidine Negative Normal (applies Phencyclidine, Urine [facility] [Mass/volume] in to non-numeric Health S ystem Urine results) Cut-off = 25 ng/mL THC Negative Normal (applies to non-numeric resul ts) THC [facility] Cut-off = 50 ng/mL ID Date Data Source [id number] 02/04/2019 04:16:09 PM EST [facility] System Name Value Range Interpretation Description Data Sup porting Code Source(s) Document(s ) TroponinIQuantitative 0.00 Normal (applies Troponin I [facility] ng/ml to non-numeric Quantitative Health results) System ID Date Data Source [id number] 02/04/2019 04:16:09 PM EST [facility] Name Value Range Interpretation Description Data Sup porting Code Source(s) Document(s ) Leukocytes 8.0 Normal (applies WBC Count [facility] [#/volume] in {10\\S\\3_ to non-numeric Health Unspecified uL} results) System specimen by Automated count Hemoglobin 9.9 Below low normal Hemoglobin, [facility] [Mass/volume] in {gm/dL} Whole Blood Health Blood System Erythrocytes 4.32 Normal (applies RBC Count [facility] [#/volume] in {10\\S\\6_ to non-numeric Health Blood by uL} results) System Automated count Erythrocyte mean 72.9 fl Below low normal MCV [facility] corpuscular Health volume [Entitic System volume] by Automated count Hematocrit 31.5 % Below low normal Hematocrit, [facility] [Volume Whole Blood Health Fraction] of System Blood Erythrocyte mean 22.9 pg Below low normal MCH [facility] corpuscular Health hemoglobin System [Entitic mass] by Automated count Erythrocyte mean 31.4 Below low normal MCHC [facility] corpuscular {gm/dL} Health hemoglobin System concentration [Mass/volume] by Automated count Erythrocyte 16.9 % Above high normal RDW [facility] distribution Health width [Entitic System volume] by Automated count Platelets 635 Above high normal Platelet [facility] [#/volume] in {10\\S\\3_ Count Health Plasma by uL} System Automated count Platelet mean 9.1 fl Normal (applies MPV [facility] volume [Entitic to non-numeric Health volume] in Blood results) System by Automated count ID Date Data Source [id number] 02/04/2019 04:16:09 PM EST [facility] Name Value Range Interpretation Description Data Sup porting Code Source(s) Document(s ) Sodium 139 Normal (applies Sodium, Serum [facility] [Moles/volume mmol/L to non-numeric Health Syst em ] in Serum or results) Plasma Potassium 4.2 Normal (applies Potassium, [facility] [Mass/volume] mmol/L to non-numeric Serum Health Syst em in Serum or results) Plasma Chloride 107 Normal (applies Chloride, [facility] [Moles/volume mmol/L to non-numeric Serum Health Syst em ] in Serum or results) Plasma Carbon 22.0 Normal (applies CO2, Serum [facility] dioxide, mmol/L to non-numeric Health System total results) [Moles/volume ] in Serum or Plasma Urea nitrogen 4 mg/dl Below low normal Blood Urea [facility] [Mass/volume] Nitrogen, Health System in Serum or Serum Plasma Glucose 83 mg/dL Normal (applies Glucose, Serum [facility] [Mass/volume] to non-numeric Health Syst em in Serum or results) Plasma Creatinine 0.70 Normal (applies Creatinine, [facility] [Mass/volume] mg/dl to non-numeric Serum Health Syst em in Serum or results) Plasma Calcium 9.5 Normal (applies Calcium, Total [facility] [Mass/volume] mg/dl to non-numeric Serum Health Syst em in Serum or results) Plasma Anion gap in 10.00 Normal (applies Anion Gap [facility] Serum or mmol/L to non-numeric Health System Plasma results) ID Date Data Source [id number] 02/04/2019 04:16:09 PM EST [facility] System Name Value Range Interpretation Description Data Sup porting Code Source(s) Document(s ) Cobalamin 75 pg/ml Below low normal Vitamin B12, [facility] (Vitamin B12) Serum Health System [Mass/volume] in Serum or Plasma ID Date Data Source [id number] 02/04/2019 04:16:09 PM EST [facility] System Name Value Range Interpretation Description Data Source(s ) Supporting Code Document(s ) Reagin Ab Non-react Normal (applies to RPR/VDRL. [facility] [Presence] chrissy non-numeric Health System in Serum by results) RPR ID Date Data Source [id number] 02/04/2019 04:16:09 PM EST [facility] Name Value Range Interpretation Description Data Sup porting Code Source(s) Document(s ) Leukocytes 11.9 Above high normal WBC Count [facility] [#/volume] in {10\\S\\3_ Health System Unspecified uL} specimen by Automated count ok Hemoglobin 10.7 {gm/dL} Below low Hemoglobin, Whole [facility] [Mass/volume] in normal Blood Health System Blood Erythrocytes 4.78 Normal RBC Count [facility] [#/volume] in Blood {10\\S\\6_uL} (applies to Health System by Automated count non-numeric results) Hematocrit [Volume 34.1 % Below low Hematocrit, Whole [facility] Fraction] of Blood normal Blood Health Syst em Erythrocyte mean 71.3 fl Below low MCV [facility] corpuscular volume normal Health Syst em [Entitic volume] by Automated count Erythrocyte mean 22.4 pg Below low MCH [facility] corpuscular normal Health System hemoglobin [Entitic mass] by Automated count Erythrocyte mean 31.4 {gm/dL} Below low MCHC [facility] corpuscular normal Health System hemoglobin concentration [Mass/volume] by Automated count Platelets [#/volume] 456 Above high Platelet Count [facility] in Plasma by {10\\S\\3_uL} normal Health System Automated count ok Erythrocyte distribution 17.0 % Above high normal RDW [facility] System width [Entitic volume] by Automated count Platelet mean volume 9.4 fl Normal (applies to MPV [facility] [Entitic volume] in Blood non-numeric results) by Automated count ID Date Data Source [id number] 02/04/2019 04:16:09 PM EST [facility] al[facility] System Name Value Range Interpretation Description Data Sup porting Code Source(s) Document(s ) Potassium 3.7 Normal (applies Potassium, [facility] [Mass/volume] mmol/L to non-numeric Serum Health Syst em in Serum or results) Plasma ok Sodium [Moles/volume] 137 mmol/L Normal (applies to Sodium, Serum [facility] in Serum or Plasma non-numeric Health Sy stem results) Chloride 106 mmol/L Normal (applies to Chloride, [facility] [Moles/volume] in non-numeric Serum Health Sys tem Serum or Plasma results) Carbon dioxide, total 22.0 mmol/L Normal (applies to CO2, Se rum [facility] [Moles/volume] in non-numeric Health Sys tem Serum or Plasma results) Glucose [Mass/volume] 101 mg/dL Normal (applies to Glucose, Serum [facility] in Serum or Plasma non-numeric Health Sy stem results) ok Creatinine 0.70 mg/dl Normal (applies Creatinine, Serum [facility] [facility] [Mass/volume] in to non-numeric Health S yste Serum or Plasma results) Urea nitrogen 9 mg/dl Normal (applies Blood Urea [facility] [Mass/volume] in to non-numeric Nitrogen, Serum He alth System Serum or Plasma results) Anion gap in Serum 9.00 mmol/L Normal (applies Anion Gap [facility] or Plasma to non-numeric Health System results) Calcium 10.2 mg/dl Normal (applies Calcium, Total [facility] [Mass/volume] in to non-numeric Serum Health S yste Serum or Plasma results) ID Date Data Source [id number] 02/04/2019 04:16:09 PM EST [facility] Name Value Range Interpretation Description Data Sup porting Code Source(s) Document(s ) Albumin 4.3 Normal (applies Albumin, [facility] [Mass/volume] in {gm/dl} to non-numeric Serum Health Serum or Plasma results) System Aspartate 12 Normal (applies Aspartate [facility] aminotransferase {IU/L} to non-numeric Transaminase, Heal th [Enzymatic results) Serum System activity/volume] in Serum or Plasma by With P-5'-P Bilirubin.total 0.3 Normal (applies Bilirubin, [facility] [Mass/volume] in mg/dl to non-numeric Serum Total Health Serum or Plasma results) System Alanine 12 Normal (applies Alanine [facility] aminotransferase {IU/L} to non-numeric Aminotransfer Heal th [Enzymatic results) ase, Serum System activity/volume] in Serum or Plasma Alkaline 76 Normal (applies Alkaline [facility] phosphatase {IU/L} to non-numeric Phosphatase, Health isoenzymes results) Serum System [Enzymatic activity/volume] in Serum or Plasma by Heat stability TotalProtein 7.4 Normal (applies Total Protein [facility] mg/dl to non-numeric Health results) System DirectBilirubin 0.1 Normal (applies Direct [facility] mg/dl to non-numeric Bilirubin Health results) System ID Date Data Source [id number] 02/04/2019 04:16:09 PM EST [facility] System Name Value Range Interpretation Description Data Source(s ) Supporting Code Document(s ) Lipase 44 U/L Normal (applies to Lipase, Serum [facility] [Enzymatic non-numeric Health System activity/vo results) lume] in Serum or Plasma ID Date Data Source [id number] 02/04/2019 04:16:09 PM EST [facility] Name Value Range Interpretation Description Data Sup porting Code Source(s) Document(s ) Amylase 51 {IU/L} Normal (applies to Amylase, Serum [facility] [Enzymatic non-numeric Health System activity/vo results) lume] in Serum or Plasma ID Date Data Source [id number] 02/04/2019 04:16:09 PM EST [facility] System Name Value Range Interpretation Description Data Sup porting Code Source(s) Document(s ) Bacteria NO Cult Bacteria [facility] identified in [facility] Blood Health Blood by [facility] System culture SpecimenSource BLOOD Specimen [facility] System ID Date Data Source [id number] 02/04/2019 04:16:09 PM EST [facility] Name Value Range Interpretation Description Data Sup porting Code Source(s) Document(s ) Bacteria NO Cult Bacteria [facility] identified in [facility] Blood Health Blood by [facility] System culture SpecimenSource BLOOD Specimen [facility] ID Date Data Source [id number] 02/04/2019 04:16:09 PM EST [facility] Name Value Range Interpretation Description Data Sup porting Code Source(s) Document(s ) Bacteria NO Cult Bacteria [facility] identified in [facility] Blood Health Blood by Aer[facility] System culture SpecimenSource BLOOD Specimen [facility] System ID Date Data Source [id number] 02/04/2019 04:16:09 PM EST [facility] Name Value Range Interpretation Description Data Sup porting Code Source(s) Document(s ) Prothrombintim 11.10 Normal (applies Prothrombin [facility](PT) to non-numeric time (PT) Health System results) INR in Blood 1.08 Below low normal INR Result [facility] by Coagulation {Ratio} Health System assay Normal = 0.7-1.1Therapeutic = 2.0-3.0Mec hanical Heart = 3.0-4.5 ID Date Data Source [id number] 02/04/2019 04:16:09 PM EST [facility] System Name Value Range Interpretation Description Data Sup porting Code Source(s) Document(s ) Sodium 136 Below low normal Sodium, Serum [facility] [Moles/volume mmol/L Health System ] in Serum or Plasma Chloride 104 Normal (applies Chloride, [facility] [Moles/volume mmol/L to non-numeric Serum Health Syst em ] in Serum or results) Plasma Potassium 3.8 Normal (applies Potassium, [facility] [Mass/volume] mmol/L to non-numeric Serum Health Syst em in Serum or results) Plasma Carbon 24.0 Normal (applies CO2, Serum [facility] dioxide, mmol/L to non-numeric Health System total results) [Moles/volume ] in Serum or Plasma Glucose 113 Above high normal Glucose, Serum [place] [Mass/volume] mg/dL Health System in Serum or Plasma ok Urea nitrogen 5 mg/dl Below low Blood Urea [facility]al [facility] [Mass/volume] in normal Nitrogen, Serum System Serum or Plasma Creatinine 0.80 mg/dl Normal Creatinine, Serum [facility] [Mass/volume] in (applies to System Serum or Plasma non-numeric results) Calcium [Mass/volume] 9.4 mg/dl Normal Calcium, Total [facility] in Serum or Plasma (applies to Serum System non-numeric results) Anion gap in Serum or 8.00 mmol/L Normal Anion Gap [facility] Plasma (applies to System non-numeric results) ID Date Data Source [id number] 02/04/2019 04:16:09 PM [facility] [place] [facility] System Name Value Range Interpretation Description Data Sup porting Code Source(s) Document(s ) Deprecated NO GROWTH Aerobic [facility] Bacteria Culture, Urine Health System identified in Urine by Aerobe culture ID Date Data Source [id number] 02/04/2019 04:16:09 PM EST [facility] [place] [facility] System Name Value Range Interpretation Description Data Sup porting Code Source(s) Document(s ) aPTT in Blood 26.2 Normal (applies Activated [facility] by Coagulation {Seconds to non-numeric Partial Health assay } results) Thromboplastin System Time ID Date Data Source [id number] 02/04/2019 04:16:09 PM EST [facility] [facility] System Name Value Range Interpretation Description Data Sup porting Code Source(s) Document(s ) Prothrombintim 10.80 Normal (applies Prothrombin [facility](PT) to non-numeric time (PT) Health System results) INR in Blood 0.99 Normal (applies INR Result [facility] by Coagulation {Ratio} to non-numeric Health Sys tem assay results) Normal = 0.7-1.1Therapeutic = 2.0-3.0Mec hanical Heart = 3.0-4.5 ID Date Data Source [id number] 02/04/2019 04:16:09 PM EST [facility] [facility] System Name Value Range Interpretation Description Data Sup porting Code Source(s) Document(s ) Leukocytes 8.3 Normal (applies WBC Count [facility] [#/volume] in {10\\S\\3_ to non-numeric Health Unspecified uL} results) System specimen by Automated count Erythrocytes 5.22 Above high normal RBC Count [facility] [#/volume] in {10\\S\\6_ Health Blood by uL} System Automated count Hemoglobin 12.6 Normal (applies Hemoglobin, [facility] [Mass/volume] in {gm/dL} to non-numeric Whole Blood Health Blood results) System Hematocrit 40.6 % Normal (applies Hematocrit, [facility] [Volume to non-numeric Whole Blood Health Fraction] of results) System Blood Erythrocyte mean 77.8 fl Below low normal MCV [place] corpuscular Health volume [Entitic System volume] by Automated count Erythrocyte mean 24.1 pg Below low normal MCH [place] corpuscular Health hemoglobin System [Entitic mass] by Automated count Erythrocyte mean 31.0 Below low normal MCHC [place] corpuscular {gm/dL} Health hemoglobin System concentration [Mass/volume] by Automated count Erythrocyte 19.6 % Above high normal RDW [facility] distribution Health width [Entitic System volume] by Automated count Platelets 502 Above high normal Platelet [facility] [#/volume] in {10\\S\\3_ Count Health Plasma by uL} System Automated count Platelet mean 10.3 fl Normal (applies MPV [facility] volume [Entitic to non-numeric Health volume] in Blood results) System by Automated count Monocytes 0.3 Normal (applies Monocyte [facility] [#/volume] in {10\\S\\3_ to non-numeric Count Health Blood by Manual uL} results) System count Eosinophils 0.1 Normal (applies Eosinophil [facility] [#/volume] in {10\\S\\3} to non-numeric Count Blood Health Blood results) System Basophils 0.04 Normal (applies Basophil [facility] [#/volume] in {10\\S\\3_ to non-numeric Count Health Blood by uL} results) System Automated count Neutrophils 6.1 Normal (applies Absolute [facility] [#/volume] in {10\\S\\3_ to non-numeric Neutrophil Health Body fluid uL} results) Count System Lymphocyte 1.7 Normal (applies Lymphocyte [facility] percent {10\\S\\3_ to non-numeric Absolute Health differential uL} results) System count (procedure) Neutrophils/100 73.7 % Normal (applies Neutrophil % [facility] savi leukocytes in to non-numeric Health Blood by results) System Automated count Monocytes/100 4.0 % Below low normal Monocyte % [facility] [facility] leukocytes in Health Blood System Eosinophils/100 1.6 % Normal (applies Eosinophil % [facility] savi leukocytes in to non-numeric Health Unspecified results) System specimen Basophils/100 0.5 % Normal (applies Basophil % [facility] [facility] leukocytes in to non-numeric Health Unspecified results) System specimen by Manual count Lymphocytes 20.2 % Below low normal Lymphocyte % [facility] [#/volume] in Health Blood by System Automated count ID Date Data Source [id number] 02/04/2019 04:16:09 PM EST [facility] Name Value Range Interpretation Description Data Sup porting Code Source(s) Document(s ) Sodium 140 Normal (applies Sodium, Serum [facility] [Moles/volume] mmol/L to non-numeric Health in Serum or results) System Plasma Potassium 4.1 Normal (applies Potassium, [facility] [Mass/volume] mmol/L to non-numeric Serum Health in Serum or results) System Plasma Chloride 105 Normal (applies Chloride, [facility] [Moles/volume] mmol/L to non-numeric Serum Health in Serum or results) System Plasma Carbon dioxide, 22.0 Normal (applies CO2, Serum [facility] total mmol/L to non-numeric Health [Moles/volume] results) System in Serum or Plasma TotalProtein 7.0 Normal (applies Total Protein [facility] [place] mg/dl to non-numeric Health results) System Glucose 149 Above high normal Glucose, Serum [facility] [Mass/volume] mg/dL Health in Serum or System Plasma ok Urea nitrogen 11 mg/dl Normal (applies Blood Urea [facility] [Mass/volume] in to non-numeric Nitrogen, Health S yste Serum or Plasma results) Serum Creatinine 0.90 mg/dl Normal (applies Creatinine, [facility] [Mass/volume] in to non-numeric Serum Health S yste Serum or Plasma results) Alkaline phosphatase 87 {IU/L} Normal (applies Alkaline [facility] isoenzymes [Enzymatic to non-numeric Phosphatase, Health System activity/volume] in results) Serum Serum or Plasma by Heat stability Bilirubin.total 0.1 mg/dl Below low Bilirubin, [facility] [Mass/volume] in normal Serum Total Health Syst em Serum or Plasma Aspartate 11 {IU/L} Normal (applies Aspartate [facility] aminotransferase to non-numeric Transaminase, [facility] System [Enzymatic results) Serum activity/volume] in Serum or Plasma by With P-5'-P Albumin [Mass/volume] 3.9 {gm/dl} Normal (applies Albumin, S barrie [facility] in Serum or Plasma to non-numeric Health System results) I.Phosphorus 3.3 mg/dl Normal (applies I. Phosphorus [facility] to non-numeric Health System results) Alanine 10 {IU/L} Normal (applies Alanine [facility] aminotransferase to non-numeric Aminotransfera [facility] System [Enzymatic results) se, Serum activity/volume] in Serum or Plasma Calcium [Mass/volume] 10.1 mg/dl Normal (applies Calcium, To brandon [facility] in Serum or Plasma to non-numeric Serum Health System results) A/GRatio 1.26 Normal (applies A/G Ratio [facility] to non-numeric Health System results) Urate [Mass/volume] 5.1 mg/dl Normal (applies Uric Acid, [facility] in Serum or Plasma to non-numeric Serum Health System results) Anion gap in Serum or 13.00 mmol/L Above high Anion Gap [facility] Plasma normal Health System Glomerular filtration Greater than 60 Normal (applies GFR [facility] rate/1.73 sq eGFR will provide to non-numeric [facility] th System M.predicted [Volume clinicians with a results) Rate/Area] in Serum more accurate or Plasma by indicator of Creatinine-based renal function formula (CKD-EPI) then the serum creatinine. The eGFR is automatically calculated from an empiric formula (endorsed by the [employer]) which incorporates age, sex, and race.Clinicians may notice surprisingly low GFR's with serum creatinine valueswithin normal range- particularly in elderly women (with low muscle mass).In the hospital setting, the eGFR should add an element of safety in drug dosing, in assessing the risk of IV contrast administration, and in assessing vascular risk.The NKF staging system is as follows:Normal: eGFR >90 with no kidney markersStage 1: eGFR >90 with kidney markers*Stage 2: eGFR 60-89Stage 3: eGFR 30-59Stage 4: eGFR 15-29Stage 5: eGFR <15 (usually requiring dialysis)*Markers include: Proteinuria, Hematuria, abnormal imaging-studies, or other blood or urine test abnormalities ID Date Data Source [id number] 02/04/2019 04:16:09 PM [facility] System Name Value Range Interpretation Description Data Sup porting Code Source(s) Document(s ) Urate 5.1 mg/dl Normal (applies to Uric Acid, [facility] [Mass/volu non-numeric Serum Health System me] in results) Serum or Plasma ID Date Data Source [id number] 02/04/2019 04:16:09 PM EST [facility] System Name Value Range Interpretation Code Description Data Nany rce(s) Supporting Document(s ) Glucose,U NEGATIVE Normal (applies to Glucose, UA [facility] A non-numeric Health System results) Negative Protein 30 mg/dl Normal (applies Protein [facility] [Mass/volume] in to non-numeric Health S ystem Serum or Plasma results) BilirubinUrine NEGATIVE Normal (applies Bilirubin Urine [facility] to non-numeric Health System results) Urobilinogen 0.20 {eu/dL} Normal (applies Urobilinogen UA [facility] [Mass/volume] in to non-numeric Health S ystem Urine results) pH.. 7.0 {pH_units} Normal (applies pH.. [facility] to non-numeric Health System results) Ketones NEGATIVE Normal (applies Ketones UA [facility] [Mass/volume] in to non-numeric Health S ystem Urine results) Negative Nitrate+Nitrite NEGATIVE Normal (applies to Nitrite [facility] Health [Mass/volume] in non-numeric results) Sy stem Unspecified specimen Negative Leukocyte esterase SMALL Normal (applies to Leukocyte Es terase [facility] [Units/volume] in non-numeric Concentration Health System Urine results) Negative Appearance of SL CLOUDY Abnormal (applies Urine Appearance [facility] Urine to non-numeric System results) Specific gravity 1.020 Normal (applies to Urine Specific [facility] Health of Urine non-numeric [place] System results) Color YELLOW Normal (applies to Color [facility] non-numeric System results) UrineBlood LARGE Normal (applies to Urine Blood [facility] non-numeric System results) ID Date Data Source [id number] 02/04/2019 04:16:09 PM EST [facility] Name Value Range Interpretation Description Data Sup porting Code Source(s) Document(s ) Leukocytes 5.9 Normal (applies WBC Count [facility] [#/volume] in {10\\S\\3_ to non-numeric Health Unspecified uL} results) System specimen by Automated count Erythrocytes 4.46 Normal (applies RBC Count [facility] [#/volume] in {10\\S\\6_ to non-numeric Health Blood by uL} results) System Automated count Hemoglobin 11.9 Below low normal Hemoglobin, [facility] [Mass/volume] in {gm/dL} Whole Blood [facility] Blood System Hematocrit 35.1 % Below low normal Hematocrit, [facility] [Volume Whole Blood Health Fraction] of System Blood Erythrocyte mean 78.7 fl Below low normal MCV [facility] corpuscular Health volume [Entitic System volume] by Automated count Erythrocyte mean 26.7 pg Normal (applies MCH [facility] [facility] corpuscular to non-numeric Health hemoglobin results) System [Entitic mass] by Automated count Erythrocyte mean 33.9 Normal (applies MCHC [place] corpuscular {gm/dL} to non-numeric Health hemoglobin results) System concentration [Mass/volume] by Automated count Erythrocyte 19.3 % Above high normal RDW [facility] distribution Health width [Entitic System volume] by Automated count Platelets 294 Normal (applies Platelet [facility] [#/volume] in {10\\S\\3_ to non-numeric Count Health Plasma by uL} results) System Automated count Platelet mean 9.8 fl Normal (applies MPV [facility] volume [Entitic to non-numeric Health volume] in Blood results) System by Automated count Monocytes 0.4 Normal (applies Monocyte [facility] [#/volume] in {10\\S\\3_ to non-numeric Count Health Blood by Manual uL} results) System count Eosinophils 0.1 Normal (applies Eosinophil [facility] [#/volume] in {10\\S\\3} to non-numeric Count Blood Health Blood results) System Neutrophils 4.5 Normal (applies Absolute [facility] [#/volume] in {10\\S\\3_ to non-numeric Neutrophil Health Body fluid uL} results) Count System Basophils 0.00 Normal (applies Basophil [facility] [#/volume] in {10\\S\\3_ to non-numeric Count Health Blood by uL} results) System Automated count Lymphocyte 1.1 Normal (applies Lymphocyte [facility] percent {10\\S\\3_ to non-numeric Absolute Health differential uL} results) System count (procedure) Neutrophils/100 73.1 % Normal (applies Neutrophil % [facility] savi leukocytes in to non-numeric Health Blood by results) System Automated count Monocytes/100 5.7 % Below low normal Monocyte % [facility] [facility] leukocytes in Health Blood System Eosinophils/100 2.1 % Normal (applies Eosinophil % [facility] savi leukocytes in to non-numeric Health Unspecified results) System specimen Basophils/100 0.5 % Normal (applies Basophil % [facility] leukocytes in to non-numeric Health Unspecified results) System specimen by Manual count Lymphocytes 18.6 % Below low normal Lymphocyte % [facility] [facility] [#/volume] in Health Blood by System Automated count ID Date Data Source [id number] 02/04/2019 04:16:09 PM EST [facility] System Name Value Range Interpretation Description Data Sup porting Code Source(s) Document(s ) hCGQuantitative Less than 5.0 Normal (applies hCG [facility] Negative = <5 to non-numeric Quantitative Health mIU/mLAPPROXI results) System MATE GEST. AGE APPROXIMATE HCG mIU/ML 0.2 - 1 week 5 - 50 1 - 2 weeks 50 - 500 2 - 3 weeks 100 - 5,000 3 - 4 weeks 500 - 10,000 4 - 5 weeks 1,000 - 50,000 5 - 6 weeks 10,000 - 100,000 6 - 8 weeks 15,000 - 200,000 8 - 12 weeks 10,000 - 100,000HCG levels between 5-25 mIU/mL may be indicative of early . Correlation with other clinical findings and/or repeat of HCG quantitative testing recommened. ID Date Data Source [id number] 02/04/2019 04:16:09 PM EST [facility] Name Value Range Interpretation Description Data Sup porting Code Source(s) Document(s ) Sodium 138 mmol/L Normal (applies Sodium, [facility] [Moles/volume] in to non-numeric Serum Health Serum or Plasma results) System Potassium Cancelled Potassium, [facility] [Mass/volume] in GROSSLY Serum Health Serum or Plasma HEMOLIZE. System Chloride 105 mmol/L Normal (applies Chloride, [facility] [Moles/volume] in to non-numeric Serum Health Serum or Plasma results) System Carbon dioxide, 22.0 mmol/L Normal (applies CO2, Serum Jono savi total to non-numeric Health [Moles/volume] in results) System Serum or Plasma TotalProtein 8.3 mg/dl Above high Total [facility] normal Protein Health System Glucose 90 mg/dL Normal (applies Glucose, [facility] [Mass/volume] in to non-numeric Serum Health Serum or Plasma results) System Urea nitrogen 5 mg/dl Below low Blood Urea [facility] [Mass/volume] in normal Nitrogen, Health Serum or Plasma Serum System Creatinine 0.80 mg/dl Normal (applies Creatinine, [facility] [Mass/volume] in to non-numeric Serum Health Serum or Plasma results) System Alkaline 91 {IU/L} Normal (applies Alkaline [facility] phosphatase to non-numeric Phosphatase, Health isoenzymes results) Serum System [Enzymatic activity/volume] in Serum or Plasma by Heat stability Bilirubin.total 0.1 mg/dl Below low Bilirubin, [facility] [Mass/volume] in normal Serum Total Health Serum or Plasma System Aspartate 34 {IU/L} Normal (applies Aspartate [facility] aminotransferase to non-numeric Transaminase Healt h [Enzymatic results) , Serum System activity/volume] in Serum or Plasma by With P-5'-P Albumin 3.9 {gm/dl} Normal (applies Albumin, [facility] [Mass/volume] in to non-numeric Serum Health Serum or Plasma results) System GROSSLY HEMOLIZE. I.Phosphorus 3.6 mg/dl Normal (applies I. Phosphorus [facility] to non-numeric Health System results) Alanine 8 {IU/L} Normal (applies Alanine [facility] aminotransferase to non-numeric Aminotransfera [facility] System [Enzymatic results) se, Serum activity/volume] in Serum or Plasma Calcium [Mass/volume] 9.7 mg/dl Normal (applies Calcium, Tot al [facility] in Serum or Plasma to non-numeric Serum Health System results) A/GRatio 0.89 Normal (applies A/G Ratio [facility] to non-numeric Health System results) Urate [Mass/volume] 5.9 mg/dl Normal (applies Uric Acid, [facility] in Serum or Plasma to non-numeric Serum Health System results) Anion gap in Serum or 11.00 mmol/L Normal (applies Anion Gap [facility] Plasma to non-numeric Health System results) Glomerular filtration Greater than 60 Normal (applies GFR [facility] rate/1.73 sq eGFR will provide to non-numeric [facility] System M.predicted [Volume clinicians with a results) Rate/Area] in Serum more accurate or Plasma by indicator of Creatinine-based renal function formula (CKD-EPI) then the serum creatinine. The eGFR is automatically calculated from an empiric formula (endorsed by the National Kidney Foundation) which incorporates age, sex, and race.Clinicians may notice surprisingly low GFR's with serum creatinine valueswithin normal range- particularly in elderly women (with low muscle mass).In the hospital setting, the eGFR should add an element of safety in drug dosing, in assessing the risk of IV contrast administration, and in assessing vascular risk.The NKF staging system is as follows:Normal: eGFR >90 with no kidney markersStage 1: eGFR >90 with kidney markers*Stage 2: eGFR 60-89Stage 3: eGFR 30-59Stage 4: eGFR 15-29Stage 5: eGFR <15 (usually requiring dialysis)*Markers include: Proteinuria, Hematuria, abnormal imaging-studies, or other blood or urine test abnormalities ID Date Data Source [id number] 02/04/2019 04:16:09 PM EST [facility] System Name Value Range Interpretation Description Data Sup porting Code Source(s) Document(s ) Leukocytes 8.6 Normal (applies WBC Count [facility] [#/volume] in {10\\S\\3_ to non-numeric Health Unspecified uL} results) System specimen by Automated count Erythrocytes 5.15 Normal (applies RBC Count [facility] [#/volume] in {10\\S\\6_ to non-numeric Health Blood by uL} results) System Automated count Hemoglobin 13.6 Normal (applies Hemoglobin, [facility] [Mass/volume] in {gm/dL} to non-numeric Whole Blood Health Blood results) System Hematocrit 40.5 % Normal (applies Hematocrit, [facility] [Volume to non-numeric Whole Blood Health Fraction] of results) System Blood Erythrocyte mean 78.6 fl Below low normal MCV [facility] corpuscular Health volume [Entitic System volume] by Automated count Erythrocyte mean 26.4 pg Normal (applies MCH [place] corpuscular to non-numeric Health hemoglobin results) System [Entitic mass] by Automated count Erythrocyte mean 33.6 Normal (applies MCHC [place] corpuscular {gm/dL} to non-numeric Health hemoglobin results) System concentration [Mass/volume] by Automated count Erythrocyte 18.7 % Above high normal RDW [facility] distribution Health width [Entitic System volume] by Automated count Platelets 416 Above high normal Platelet [facility] [#/volume] in {10\\S\\3_ Count Health Plasma by uL} System Automated count Platelet mean 9.6 fl Normal (applies MPV [facility] volume [Entitic to non-numeric Health volume] in Blood results) System by Automated count Monocytes 0.5 Normal (applies Monocyte [facility] [#/volume] in {10\\S\\3_ to non-numeric Count Health Blood by Manual uL} results) System count Eosinophils 0.0 Normal (applies Eosinophil [facility] [#/volume] in {10\\S\\3} to non-numeric Count Blood Health Blood results) System Basophils 0.00 Normal (applies Basophil [facility] [#/volume] in {10\\S\\3_ to non-numeric Count Health Blood by uL} results) System Automated count Neutrophils 5.6 Normal (applies Absolute [facility] [#/volume] in {10\\S\\3_ to non-numeric Neutrophil Health Body fluid uL} results) Count System Lymphocyte 2.5 Normal (applies Lymphocyte [facility] percent {10\\S\\3_ to non-numeric Absolute Health differential uL} results) System count (procedure) Neutrophils/100 65.3 % Normal (applies Neutrophil % [facility] savi leukocytes in to non-numeric Health Blood by results) System Automated count Monocytes/100 5.6 % Below low normal Monocyte % [facility] [facility] leukocytes in Health Blood System Eosinophils/100 0.0 % Below low normal Eosinophil % [facility] leukocytes in Health Unspecified System specimen Basophils/100 0.0 % Normal (applies Basophil % [facility] leukocytes in to non-numeric Health Unspecified results) System specimen by Manual count Lymphocytes 29.1 % Normal (applies Lymphocyte % [facility] [#/volume] in to non-numeric Health Blood by results) System Automated count ID Date Data Source [id number] 02/04/2019 04:16:09 PM EST [facility] Name Value Range Interpretation Description Data Sup porting Code Source(s) Document(s ) HCGQualitative NEGATIVE Normal (applies HCG [facility] to non-numeric Qualitative Health results) System Default Normal RangesNegative <5Indeterm inate 5-25(Please repeat in 2 days.)Positive >25 ID Date Data Source [id number] 02/04/2019 04:16:09 PM EST [facility] System Name Value Range Interpretation Description Data Source(s ) Supporting Code Document(s ) Sodium 145 Normal (applies to Sodium, Serum [facility] [Moles/vol mmol/L non-numeric Health System ume] in results) Serum or Plasma [place] Potassium 3.6 mmol/L Normal (applies Potassium, Serum [facility] [Mass/volume] in to non-numeric Health S ystem Serum or Plasma results) Chloride 107 mmol/L Normal (applies Chloride, Serum [facility] [place] [Moles/volume] in to non-numeric Health System Serum or Plasma results) Carbon dioxide, 22.0 mmol/L Normal (applies CO2, Serum [facility] sav[facility] total [Moles/volume] to non-numeric Heal th System in Serum or Plasma results) Glucose 108 mg/dL Above high normal Glucose, Serum [facility] [Mass/volume] in [facility] System Serum or Plasma [place] Urea nitrogen 10 mg/dl Normal (applies to Blood Urea [facility] [Mass/volume] in non-numeric Nitrogen, Serum [facility] h System Serum or Plasma results) Creatinine 0.80 mg/dl Normal (applies to Creatinine, [facility] [Mass/volume] in non-numeric Serum Health Syst em Serum or Plasma results) Calcium 10.3 mg/dl Above high normal Calcium, Total [facility] [Mass/volume] in Serum Health System Serum or Plasma Anion gap in Serum 16.00 mmol/L Above high normal Anion Gap [facility] or Plasma Health System ID Date Data Source [id number] 02/04/2019 04:16:09 PM EST [facility] Name Value Range Interpretation Description Data Sup porting Code Source(s) Document(s ) Phenobarbital 12.1 Below low normal PHENobarbital [facility] [Mass/volume] in ug/ml Level, Serum Health Serum or Plasma System ID Date Data Source [id number] 02/04/2019 04:16:09 PM EST [facility] Name Value Range Interpretation Description Data Sup porting Code Source(s) Document(s ) AlcoholE NONE Normal (applies to Alcohol Ethyl, [facility] thyl,Blo DETECTED non-numeric Blood [facility] System od None results) Detected ID Date Data Source [id number] 02/04/2019 04:16:09 PM EST [facility] Name Value Range Interpretation Description Data Sup porting Code Source(s) Document(s ) Leukocytes 8.5 Normal (applies WBC Count [facility] [#/volume] in {10\\S\\3_ to non-numeric Health Syst em Unspecified uL} results) specimen by Automated count ok Erythrocytes 5.03 {10\\S\\6_uL} Normal (applies RBC Count [facility] [#/volume] in Blood to non-numeric [facility] System by Automated count results) Hemoglobin 12.5 {gm/dL} Normal (applies Hemoglobin, [facility] [Mass/volume] in to non-numeric Whole Blood [facility] System Blood results) Hematocrit [Volume 39.5 % Normal (applies Hematocrit, [facility] Fraction] of Blood to non-numeric Whole Blood [facility] System results) Erythrocyte mean 78.5 fl Below low normal MCV [place] corpuscular volume Health Syst em [Entitic volume] by Automated count Erythrocyte mean 24.9 pg Below low normal MCH [facility] corpuscular [facility] System hemoglobin [Entitic mass] by Automated count Erythrocyte mean 31.6 {gm/dL} Below low normal [facility]C [facility] corpuscular [facility] System hemoglobin concentration [Mass/volume] by Automated count Erythrocyte 18.0 % Above high RDW [facility] distribution width normal Health Syst em [Entitic volume] by Automated count Platelets 272 {10\\S\\3_uL} Normal (applies Platelet Count [facility] [#/volume] in to non-numeric Health Syst em Plasma by Automated results) count Platelet mean 10.3 fl Normal (applies MPV [facility] volume [Entitic to non-numeric Health Sy stem volume] in Blood by results) Automated count Monocytes 0.7 {10\\S\\3_uL} Normal (applies Monocyte Count [facility] [#/volume] in Blood to non-numeric Healt h System by Manual count results) Eosinophils 0.1 {10\\S\\3} Normal (applies Eosinophil [facility] [#/volume] in Blood to non-numeric Count Blood Hea lt System results) Neutrophils 5.2 {10\\S\\3_uL} Normal (applies Absolute [facility] [#/volume] in Body to non-numeric Neutrophil Healt h System fluid results) Count Basophils 0.04 {10\\S\\3_uL} Normal (applies Basophil Count [facility] [#/volume] in Blood to non-numeric Healt h System by Automated count results) Lymphocyte percent 2.6 {10\\S\\3_uL} Normal (applies Lymphocyt e [facility] differential count to non-numeric Absolute Health System (procedure) results) Neutrophils/100 60.8 % Normal (applies Neutrophil % [facility] leukocytes in Blood to non-numeric Healt h System by Automated count results) Monocytes/100 7.6 % Normal (applies Monocyte % [facility] [facility] leukocytes in Blood to non-numeric Healt h System results) Eosinophils/100 1.2 % Normal (applies Eosinophil % [facility] leukocytes in to non-numeric Health Syst em Unspecified results) specimen Basophils/100 0.5 % Normal (applies Basophil % [facility] leukocytes in to non-numeric Health Syst em Unspecified results) specimen by Manual count Lymphocytes 29.9 % Normal (applies Lymphocyte % [facility] [#/volume] in Blood to non-numeric Healt h System by Automated count results) ID Date Data Source [id number] 02/04/2019 04:16:09 PM EST [facility] Name Value Range Interpretation Description Data Sup porting Code Source(s) Document(s ) AlcoholE none Normal (applies to Alcohol Ethyl, [facility] thyl,Blo detected non-numeric Blood Health System od None results) Detected ID Date Data Source [id number] 02/04/2019 04:16:09 PM EST [facility] Name Value Range Interpretation Description Data Sup porting Code Source(s) Document(s ) Potassium 4.3 Normal (applies Potassium, [facility] [Mass/volume] mmol/L to non-numeric Serum Health Syst em in Serum or results) Plasma [place] ID Date Data Source [id number] 02/04/2019 04:16:09 PM EST [facility] RN Collect Name Value Range Interpretation Description Data Sup porting Code Source(s) Document(s ) Color YELLOW Normal (applies Color [facility] to non-numeric Health results) System Appearance of CLEAR Normal (applies Urine [facility] Urine to non-numeric Appearance Health results) System Specific 1.025 Normal (applies Urine [facility] gravity of to non-numeric Specific Health Urine results) [place] [facility] pH.. 6.0 Normal (applies pH.. [facility] {pH_units} to non-numeric Health results) System Glucose,UA NEGATIVE Normal (applies Glucose, UA [facility] to non-numeric Health results) System Negative Protein NEGATIVE Normal (applies Protein [facility] [Mass/volume] in to non-numeric Health S ystem Serum or Plasma results) BilirubinUrine NEGATIVE Normal (applies Bilirubin Urine [facility] to non-numeric Health System results) Urobilinogen 0.20 {eu/dL} Normal (applies Urobilinogen UA [facility] [Mass/volume] in to non-numeric Health S ystem Urine results) Ketones TRACE Normal (applies Ketones UA [facility] [Mass/volume] in to non-numeric Health S ystem Urine results) Negative Nitrate+Nitrite NEGATIVE Normal (applies to Nitrite [facility] [Mass/volume] in non-numeric results) Sy stem Unspecified specimen Negative Leukocyte esterase trace Normal (applies to Leukocyte Es terase [facility] [Units/volume] in non-numeric Concentration Health System Urine results) NegativePreviously released as NEGATIVE on 10/09/2011, 6:47 [place] [id number] - THIS IS A CORRECTED RESULT. Leukocytes 10-20 Normal (applies to White Blood Cells [facility] [#/volume] in non-numeric System Unspecified specimen results) by Automated count RedBloodCells 0-2 Normal (applies to Red Blood Cells [facility] non-numeric System results) Epithelial cells few Normal (applies to Epithelial Krystal ls [facility] [Presence] in non-numeric System Unspecified specimen results) by Wet preparation Bacteria [Presence] few Normal (applies to Bacteria [facility] in Unspecified non-numeric System specimen results) UrineBlood NEGATIVE Normal (applies to Urine Blood [facility] non-numeric System results) ID Date Data Source [id number] 02/04/2019 04:16:09 PM EST [facility] Name Value Range Interpretation Description Data Sup porting Code Source(s) Document(s ) Leukocytes 6.2 Normal (applies WBC Count [facility] [#/volume] in {10\\S\\3_ to non-numeric Health Unspecified uL} results) System specimen by Automated count Erythrocytes 5.16 Normal (applies RBC Count [facility] [#/volume] in {10\\S\\6_ to non-numeric Health Blood by uL} results) System Automated count Hemoglobin 13.2 Normal (applies Hemoglobin, [facility] [Mass/volume] in {gm/dL} to non-numeric Whole Blood Health Blood results) System Hematocrit 39.5 % Normal (applies Hematocrit, [facility] [Volume to non-numeric Whole Blood Health Fraction] of results) System Blood Erythrocyte mean 76.6 fl Below low normal MCV [facility] corpuscular Health volume [Entitic System volume] by Automated count Erythrocyte mean 25.6 pg Below low normal MCH [facility] [facility] corpuscular Health hemoglobin System [Entitic mass] by Automated count Erythrocyte mean 33.4 Normal (applies MCHC [facility] corpuscular {gm/dL} to non-numeric Health hemoglobin results) System concentration [Mass/volume] by Automated count Erythrocyte 19.7 % Above high normal RDW [facility] distribution Health width [Entitic System volume] by Automated count Platelets 301 Normal (applies Platelet [facility] [#/volume] in {10\\S\\3_ to non-numeric Count Health Plasma by uL} results) System Automated count Platelet mean 10.9 fl Above high normal MPV [facility] volume [Entitic Health volume] in Blood System by Automated count Monocytes 0.4 Normal (applies Monocyte [facility] [#/volume] in {10\\S\\3_ to non-numeric Count Health Blood by Manual uL} results) System count Eosinophils 0.1 Normal (applies Eosinophil [facility] [#/volume] in {10\\S\\3} to non-numeric Count Blood Health Blood results) System Basophils 0.03 Normal (applies Basophil [facility] [#/volume] in {10\\S\\3_ to non-numeric Count Health Blood by uL} results) System Automated count Neutrophils 4.1 Normal (applies Absolute [facility] [#/volume] in {10\\S\\3_ to non-numeric Neutrophil Health Body fluid uL} results) Count System Lymphocyte 1.7 Normal (applies Lymphocyte [facility] percent {10\\S\\3_ to non-numeric Absolute Health differential uL} results) System count (procedure) Neutrophils/100 65.6 % Normal (applies Neutrophil % [facility] savi leukocytes in to non-numeric Health Blood by results) System Automated count Monocytes/100 6.3 % Normal (applies Monocyte % [facility] leukocytes in to non-numeric Health Blood results) System Eosinophils/100 0.8 % Below low normal Eosinophil % [place] [facility] leukocytes in Health Unspecified System specimen Basophils/100 0.5 % Normal (applies Basophil % [facility] leukocytes in to non-numeric Health Unspecified results) System specimen by Manual count Lymphocytes 26.8 % Normal (applies Lymphocyte % [facility] [#/volume] in to non-numeric Health Blood by results) System Automated count ID Date Data Source [id number] 02/04/2019 04:16:09 PM EST [facility] Name Value Range Interpretation Description Data Sup porting Code Source(s) Document(s ) hCGQuantitative Less than 5 Normal (applies hCG [facility] Negative = <5 to non-numeric Quantitative Health mIU/mLAPPROXI results) System MATE GEST. AGE APPROXIMATE HCG mIU/ML 0.2 - 1 week 5 - 50 1 - 2 weeks 50 - 500 2 - 3 weeks 100 - 5,000 3 - 4 weeks 500 - 10,000 4 - 5 weeks 1,000 - 50,000 5 - 6 weeks 10,000 - 100,000 6 - 8 weeks 15,000 - 200,000 8 - 12 weeks 10,000 - 100,000HCG levels between 5-25 mIU/mL may be indicative of early . Correlation with other clinical findings and/or repeat of HCG quantitative testing recommened. ID Date Data Source [id number] 02/04/2019 04:16:09 PM EST [facility] Name Value Range Interpretation Description Data Sup porting Code Source(s) Document(s ) Sodium 140 Normal (applies Sodium, Serum [facility] [Moles/volume] in mmol/L to non-numeric Health Serum or Plasma results) System Potassium 4.6 Normal (applies Potassium, [facility] [Mass/volume] in mmol/L to non-numeric Serum Health Serum or Plasma results) System Chloride 110 Above high Chloride, [facility] [Moles/volume] in mmol/L normal Serum Health Serum or Plasma System Carbon dioxide, 17.0 Below low normal CO2, Serum [facility] total mmol/L Health [Moles/volume] in System Serum or Plasma TotalProtein 7.0 Normal (applies Total Protein [facility] mg/dl to non-numeric Health results) System Glucose 89 Normal (applies Glucose, [facility] [Mass/volume] in mg/dL to non-numeric Serum Health Serum or Plasma results) System Urea nitrogen 13 Normal (applies Blood Urea [facility] [Mass/volume] in mg/dl to non-numeric Nitrogen, Health Serum or Plasma results) Serum System Creatinine 0.80 Normal (applies Creatinine, [facility] [Mass/volume] in mg/dl to non-numeric Serum Health Serum or Plasma results) System Alkaline 88 Normal (applies Alkaline [facility] phosphatase {IU/L} to non-numeric Phosphatase, Health isoenzymes results) Serum System [Enzymatic activity/volume] in Serum or Plasma by Heat stability Bilirubin.total 0.3 Normal (applies Bilirubin, [facility] [Mass/volume] in mg/dl to non-numeric Serum Total Health Serum or Plasma results) System Aspartate 16 Normal (applies Aspartate [facility] aminotransferase {IU/L} to non-numeric Transaminase, Heal th [Enzymatic results) Serum System activity/volume] in Serum or Plasma by With P-5'-P Albumin 4.0 Normal (applies Albumin, [facility] [Mass/volume] in {gm/dl} to non-numeric Serum Health Serum or Plasma results) System I.Phosphorus 3.3 Normal (applies I. Phosphorus [facility] mg/dl to non-numeric Health results) System Alanine 13 Normal (applies Alanine [facility] aminotransferase {IU/L} to non-numeric Aminotransfer Heal th [Enzymatic results) ase, Serum System activity/volume] in Serum or Plasma Calcium 10.1 Normal (applies Calcium, [facility] [Mass/volume] in mg/dl to non-numeric Total Serum Health Serum or Plasma results) System A/GRatio 1.33 Normal (applies A/G Ratio [facility] to non-numeric Health results) System Urate 6.1 Normal (applies Uric Acid, [facility] [Mass/volume] in mg/dl to non-numeric Serum Health Serum or Plasma results) System Anion gap in Serum 13.00 Above high Anion Gap [facility] or Plasma mmol/L normal Health System Glomerular 77.06 Normal (applies GFR [facility] filtration to non-numeric Health rate/1.73 sq results) System M.predicted [Volume Rate/Area] in Serum or Plasma by Creatinine-based formula (CKD-EPI) eGFR will provide clinicians with a more accurate indicator of renal function then the serum creatinine. The eGFR is automa tically calculated from an empiric formula (endorsed by the [employer] ion) which incorporates age, sex, and race.Clinicians may notice surprisingly low GFR's with serum creatinine valueswithin normal range- particularly in elderly wo men (with low muscle mass).In the hospital setting, the eGFR should add an element of safety in drug dosing, in assessing the risk of IV contrast administration, and in assessing vascular risk.The NKF staging system is as follows:Normal: eGFR >90 with no kidney markersStage 1: eGFR >90 with kidney markers*Stage 2: eGFR 60- 89Stage 3: eGFR 30-59Stage 4: eGFR 15-29Stage 5: eGFR <15 (usually requir ing dialysis)*Markers include: Proteinuria, Hematuria, abnormal imaging-studies, or other blood or urine test abnormalities ID Date Data Source [id number] 02/04/2019 04:16:09 PM [facility] System Name Value Range Interpretation Description Data Sup porting Code Source(s) Document(s ) Phenobarbital 0.5 Below low normal PHENobarbital [facility] [Mass/volume] in ug/ml Level, Serum Health Serum or Plasma System ID Date Data Source [id number] 02/04/2019 04:16:09 PM EST [facility] System Name Value Range Interpretation Description Data Sup porting Code Source(s) Document(s ) Levetiracetam 12.60 Normal (applies LevETIRAcetam [facility] [Mass/volume] in {See_re to non-numeric Level, Serum Healt h Serum or Plasma port} results) System ID Date Data Source [id number] 02/04/2019 04:16:09 PM EST [facility] System Name Value Range Interpretation Description Data Sup porting Code Source(s) Document(s ) Prothrombintim 11.30 Above high normal Prothrombin [facility]i e(PT) {seconds time (PT) Health System } INR in Blood 1.09 Normal (applies INR Result [facility] by Coagulation {Ratio} to non-numeric Health Sys tem assay results) Normal = 0.7-1.1Therapeutic = 2.0-3.0Mec hanical Heart = 3.0-4.5 ID Date Data Source [id number] 02/04/2019 04:16:09 PM EST [facility] System Name Value Range Interpretation Description Data Sup porting Code Source(s) Document(s ) Leukocytes 10.2 Normal (applies WBC Count [facility] [#/volume] in {10^3_uL to non-numeric Health Unspecified } results) System specimen by Automated count Erythrocytes 5.19 Normal (applies RBC Count [facility] [#/volume] in {10^6_uL to non-numeric Health Blood by } results) System Automated count Hemoglobin 15.5 Normal (applies Hemoglobin, [facility] [Mass/volume] in {gm/dL} to non-numeric Whole Blood Health Blood results) System Hematocrit 45.6 % Normal (applies Hematocrit, [facility] [Volume to non-numeric Whole Blood Health Fraction] of results) System Blood Erythrocyte mean 87.9 fl Normal (applies MCV [facility] corpuscular to non-numeric Health volume [Entitic results) System volume] by Automated count Erythrocyte mean 29.9 pg Normal (applies MCH [facility] corpuscular to non-numeric Health hemoglobin results) System [Entitic mass] by Automated count Erythrocyte mean 34.0 Normal (applies MCHC [facility] corpuscular {gm/dL} to non-numeric Health hemoglobin results) System concentration [Mass/volume] by Automated count Erythrocyte 14.2 % Normal (applies RDW [facility] distribution to non-numeric Health width [Entitic results) System volume] by Automated count Platelets 337 Normal (applies Platelet [facility] [#/volume] in {10^3_uL to non-numeric Count Health Plasma by } results) System Automated count Platelet mean 10.2 fl Normal (applies MPV [facility] volume [Entitic to non-numeric Health volume] in Blood results) System by Automated count Monocytes 0.7 Normal (applies Monocyte [facility] [#/volume] in {10^3_uL to non-numeric Count Health Blood by Manual } results) System count Eosinophils 0.0 Below low normal Eosinophil [facility] [#/volume] in {10^3_uL Count Blood Health Blood } System Neutrophils 7.5 Normal (applies Absolute [facility] [#/volume] in {10^3_uL to non-numeric Neutrophil Health Body fluid } results) Count System Basophils 0.0 Normal (applies Basophil [facility] [#/volume] in {10^3_uL to non-numeric Count Health Blood by } results) System Automated count Lymphocyte 2.0 Normal (applies Lymphocyte [facility] percent {10^3_uL to non-numeric Absolute Health differential } results) System count (procedure) Neutrophils/100 73.7 % Normal (applies Neutrophil % [facility] leukocytes in to non-numeric Health Blood by results) System Automated count Monocytes/100 6.8 % Normal (applies Monocyte % [facility] leukocytes in to non-numeric Health Blood results) System Eosinophils/100 0.1 % Below low normal Eosinophil % [place] [facility] leukocytes in Health Unspecified System specimen Basophils/100 0.1 % Normal (applies Basophil % [facility] leukocytes in to non-numeric Health Unspecified results) System specimen by Manual count Lymphocytes 19.3 % Below low normal Lymphocyte % [facility] [#/volume] in Health Blood by System Automated count ID Date Data Source [id number] 02/04/2019 04:16:09 PM EST [facility] Name Value Range Interpretation Description Data Sup porting Code Source(s) Document(s ) Sodium 140 Normal (applies Sodium, Serum [facility] [Moles/volume] in mmol/L to non-numeric Health Serum or Plasma results) System Potassium 4.0 Normal (applies Potassium, [facility] [Mass/volume] in mmol/L to non-numeric Serum Health Serum or Plasma results) System Chloride 105 Normal (applies Chloride, [facility] [Moles/volume] in mmol/L to non-numeric Serum Health Serum or Plasma results) System Carbon dioxide, 22.0 Normal (applies CO2, Serum [facility] total mmol/L to non-numeric Health [Moles/volume] in results) System Serum or Plasma TotalProtein 7.8 Normal (applies Total Protein [facility] mg/dl to non-numeric Health results) System Glucose 120 Above high Glucose, [facility] [Mass/volume] in mg/dL normal Serum Health Serum or Plasma System Urea nitrogen 9 mg/dl Normal (applies Blood Urea [facility] [Mass/volume] in to non-numeric Nitrogen, Health Serum or Plasma results) Serum System Creatinine 0.90 Normal (applies Creatinine, [facility] [Mass/volume] in mg/dl to non-numeric Serum Health Serum or Plasma results) System Alkaline 157 Above high Alkaline [facility] phosphatase {IU/L} normal Phosphatase, Health isoenzymes Serum System [Enzymatic activity/volume] in Serum or Plasma by Heat stability Bilirubin.total 0.3 Normal (applies Bilirubin, [facility] [Mass/volume] in mg/dl to non-numeric Serum Total Health Serum or Plasma results) System Aspartate 18 Normal (applies Aspartate [facility] aminotransferase {IU/L} to non-numeric Transaminase, Heal th [Enzymatic results) Serum System activity/volume] in Serum or Plasma by With P-5'-P Albumin 4.3 Normal (applies Albumin, [facility] [Mass/volume] in {gm/dl} to non-numeric Serum Health Serum or Plasma results) System I.Phosphorus 3.2 Normal (applies I. Phosphorus [facility] mg/dl to non-numeric Health results) System Alanine 13 Normal (applies Alanine [facility] aminotransferase {IU/L} to non-numeric Aminotransfer Heal th [Enzymatic results) ase, Serum System activity/volume] in Serum or Plasma Calcium 10.9 Above high Calcium, [facility] [Mass/volume] in mg/dl normal Total Serum Health Serum or Plasma System A/GRatio 1.23 Normal (applies A/G Ratio [facility] to non-numeric Health results) System Urate 5.4 Normal (applies Uric Acid, [facility] [Mass/volume] in mg/dl to non-numeric Serum Health Serum or Plasma results) System Anion gap in Serum 13.00 Above high Anion Gap [facility] or Plasma mmol/L normal Health System Glomerular 66.82 Normal (applies GFR [facility] filtration to non-numeric Health rate/1.73 sq results) System M.predicted [Volume Rate/Area] in Serum or Plasma by Creatinine-based formula (CKD-EPI) eGFR will provide clinicians with a more accurate indicator of renal function then the serum creatinine. The eGFR is automa tically calculated from an empiric formula (endorsed by the [employer] ion) which incorporates age, sex, and race.Clinicians may notice surprisingly low GFR's with serum creatinine valueswithin normal range- particularly in elderly wo men (with low muscle mass).In the hospital setting, the eGFR should add an element of safety in drug dosing, in assessing the risk of IV contrast administration, and in assessing vascular risk.The NKF staging system is as follows:Normal: eGFR >90 with no kidney markersStage 1: eGFR >90 with kidney markers*Stage 2: eGFR 60- 89Stage 3: eGFR 30-59Stage 4: eGFR 15-29Stage 5: eGFR <15 (usually requir ing dialysis)*Markers include: Proteinuria, Hematuria, abnormal imaging-studies, or other blood or urine test abnormalities ID Date Data Source [id number] 02/04/2019 04:16:09 PM [facility] System Name Value Range Interpretation Description Data Sup porting Code Source(s) Document(s ) TroponinIQuantitative 0.00 Normal (applies Troponin I [facility] ng/ml to non-numeric Quantitative Health results) System ID Date Data Source [id number] 02/04/2019 04:16:09 PM EST [facility] System Name Value Range Interpretation Description Data Sup porting Code Source(s) Document(s ) Amphetamine Negative Normal (applies Amphetamine [facility] [Mass/volume] to non-numeric Level, Urine Health in Urine results) System Cut-off = 1000 ng/mL Barbiturates Positive Abnormal (applies Barbiturate [facility] [Mass/volume] in to non-numeric Screen, Urine Heal th System Urine by Screen results) method Cut-off = 200 ng/mL Benzodiazepines Negative Normal (applies Benzodiazepines, [facility] [Mass/volume] in to non-numeric Urine Health S yste Urine results) Cut-off = 200 ng/mL Cocaine Positive Abnormal (applies Cocaine [facility] metabolites.other to non-numeric Metabolite Health System [Mass/volume] in Urine results) Screen, Urine Cut-off = 300 ng/mL Methadone Negative Normal (applies to Methadone Level, [facility] [Mass/volume] in non-numeric Urine System Urine results) Cut-off = 300 ng/mL [id number],Urine Negative Normal (applies to Opiate 300, [facility] non-numeric results) Urine System Cut-off = 300 ng/mL Phencyclidine Negative Normal (applies Phencyclidine, Urine [facility] [Mass/volume] in to non-numeric Health S yste Urine results) Cut-off = 25 ng/mL THC Negative Normal (applies to non-numeric resul ts) THC [facility] System These results are for medical treatment only. The positive findings are unconfirmed. Request confirmatory/quantitative test i f needed. ID Date Data Source [id number] 02/04/2019 04:16:09 PM [facility] System Name Value Range Interpretation Description Data Sup porting Code Source(s) Document(s ) Amphetamine Negative Normal (applies Amphetamine [facility] [Mass/volume] to non-numeric Level, Urine Health in Urine results) System Cut-off = 1000 ng/mL Barbiturates Negative Normal (applies to Barbiturate [facility] [Mass/volume] in non-numeric Screen, Urine [facility] System Urine by Screen results) method Cut-off = 200 ng/mL Benzodiazepines Negative Normal (applies Benzodiazepines, [facility] [Mass/volume] in to non-numeric Urine Health S yste Urine results) Cut-off = 200 ng/mL Cocaine Positive Abnormal (applies Cocaine [facility] metabolites.other to non-numeric Metabolite [facility] [Mass/volume] in Urine results) Screen, Urine Cut-off = 300 ng/mL Methadone Negative Normal (applies to Methadone Level, [facility] [Mass/volume] in non-numeric Urine System Urine results) Cut-off = 300 ng/mL [id number],Urine Negative Normal (applies to Opiate 300, [facility] non-[facility] results) Urine System Cut-off = 300 ng/mL Phencyclidine Negative Normal (applies Phencyclidine, Urine [facility] [Mass/volume] in to non-numeric Health S te Urine results) Cut-off = 25 ng/mL THC Negative Normal (applies to non-numeric resul ts) THC [facility] System These results are for medical treatment only. The positive findings are unconfirmed. Request confirmatory/quantitative test i f needed. ID Date Data Source [id number] 02/04/2019 04:16:09 PM [facility] Collect Name Value Range Interpretation Description Data Sup porting Code Source(s) Document(s ) Color YELLOW Normal (applies Color [facility] to non-numeric Health results) System Appearance of SL CLOUDY Abnormal Urine [facility] Urine Previously (applies to Appearance Health released as non-numeric System CLEAR on results) 09/05/2013, 5:46 [place] [id number] - Specific Greater than Normal (applies Urine [facility] gravity of =1.030 to non-numeric Specific Health Urine results) [place] System pH.. 6.0 Normal (applies pH.. [facility] {pH_units} to non-numeric Health results) System Glucose,UA NEGATIVE Normal (applies Glucose, UA [facility] to non-numeric Health results) System Negative Protein NEGATIVE Normal (applies Protein [facility] [Mass/volume] in to non-numeric Health S te Serum or Plasma results) BilirubinUrine NEGATIVE Normal (applies Bilirubin Urine [facility] to non-numeric Health System results) Urobilinogen 0.20 {eu/dL} Normal (applies Urobilinogen UA [facility] [Mass/volume] in to non-numeric Health S yste Urine results) Ketones NEGATIVE Normal (applies Ketones UA [facility] [Mass/volume] in to non-numeric [facility] Negative Nitrate+Nitrite NEGATIVE Normal (applies to Nitrite [facility] [Mass/volume] in non-numeric results) Sy stem Unspecified specimen Negative Leukocyte esterase MODERATE Normal (applies Leukocyte Shawna ase [facility] [Units/volume] in to non-numeric Concentration Hea lt System Urine results) Negative Leukocytes 10-20 Normal (applies White Blood [facility] [#/volume] in to non-numeric Cells Health Syst em Unspecified specimen results) by Automated count RedBloodCells 0-2 Normal (applies Red Blood Cells [facility] to non-numeric Health System results) Epithelial cells 20-50 Normal (applies Epithelial Cells [facility] [Presence] in to non-numeric Health Syst em Unspecified specimen results) by Wet preparation Bacteria [Presence] FEW Normal (applies Bacteria [facility] in Unspecified to non-numeric Health Sys tem specimen results) Calcium oxalate MANY Normal (applies Calcium Oxalate [facility] crystals [#/area] in to non-numeric Crystals Heal th System Urine sediment by results) Microscopy low power field UrineBlood TRACE-INTACT Normal (applies Urine Blood [facility] to non-numeric Health System results) ID Date Data Source [id number] 02/04/2019 04:16:09 PM EST [facility] Name Value Range Interpretation Description Data Sup porting Code Source(s) Document(s ) Leukocytes 11.3 10 Above high normal WBC Count [facility] [#/volume] in Health Unspecified System specimen by Automated count Erythrocytes 5.13 10 Normal (applies RBC Count [facility] [#/volume] in to non-numeric Health Blood by results) System Automated count Hemoglobin 14.5 Normal (applies Hemoglobin, [facility] [Mass/volume] in {gm/dL} to non-numeric Whole Blood Health Blood results) System Hematocrit 43.8 % Normal (applies Hematocrit, [facility] [Volume to non-numeric Whole Blood Health Fraction] of results) System Blood Erythrocyte mean 85.4 fl Normal (applies MCV [facility] corpuscular to non-numeric Health volume [Entitic results) System volume] by Automated count Erythrocyte mean 28.3 pg Normal (applies MCH [facility] corpuscular to non-numeric Health hemoglobin results) System [Entitic mass] by Automated count Erythrocyte mean 33.1 Normal (applies MCHC [facility] corpuscular {gm/dL} to non-numeric Health hemoglobin results) System concentration [Mass/volume] by Automated count Erythrocyte 14.6 % Above high normal RDW-CV [facility] distribution Health width [Entitic System volume] by Automated count Platelets 373 10 Normal (applies Platelet [facility] [#/volume] in to non-numeric Count Health Plasma by results) System Automated count Platelet mean 10.9 fl Above high normal MPV [facility] volume [Entitic Health volume] in Blood System by Automated count Monocytes 0.8 10 Normal (applies Monocyte [facility] [#/volume] in to non-numeric Count Health Blood by Manual results) System count Eosinophils 0.2 10 Normal (applies Eosinophil [facility] [#/volume] in to non-numeric Count Blood Health Blood results) System Neutrophils 6.1 10 Normal (applies Absolute [facility] [#/volume] in to non-numeric Neutrophil Health Body fluid results) Count System Basophils 0.0 10 Normal (applies Basophil [facility] [#/volume] in to non-numeric Count Health Blood by results) System Automated count Lymphocyte 4.1 10 Normal (applies Lymphocyte [facility] percent to non-numeric Absolute Health differential results) System count (procedure) Neutrophils/100 53.8 % Normal (applies Neutrophil % Jono savi leukocytes in to non-numeric Health Blood by results) System Automated count Monocytes/100 7.2 % Normal (applies Monocyte % [facility] leukocytes in to non-numeric Health Blood results) System Eosinophils/100 2.0 % Normal (applies Eosinophil % [facility] savi leukocytes in to non-numeric Health Unspecified results) System specimen Basophils/100 0.4 % Normal (applies Basophil % [facility] leukocytes in to non-numeric Health Unspecified results) System specimen by Manual count Lymphocytes 36.6 % Normal (applies Lymphocyte % [facility] [#/volume] in to non-numeric Health Blood by results) System Automated count ID Date Data Source [id number] 02/04/2019 04:16:09 PM EST [facility] Name Value Range Interpretation Description Data Sup porting Code Source(s) Document(s ) Sodium 144 Normal (applies Sodium, Serum [facility] [Moles/volume] in mmol/L to non-numeric Health Serum or Plasma results) System Potassium 4.2 Normal (applies Potassium, [facility] [Mass/volume] in mmol/L to non-numeric Serum Health Serum or Plasma results) System Chloride 106 Normal (applies Chloride, [facility] [Moles/volume] in mmol/L to non-numeric Serum Health Serum or Plasma results) System Carbon dioxide, 23.0 Normal (applies CO2, Serum [facility] total mmol/L to non-numeric Health [Moles/volume] in results) System Serum or Plasma TotalProtein 7.2 Normal (applies Total Protein [facility] mg/dl to non-numeric Health results) System Glucose 100 Normal (applies Glucose, [facility] [Mass/volume] in mg/dL to non-numeric Serum Health Serum or Plasma results) System Urea nitrogen 12 Normal (applies Blood Urea [facility] [Mass/volume] in mg/dl to non-numeric Nitrogen, Health Serum or Plasma results) Serum System Creatinine 1.10 Normal (applies Creatinine, [facility] [Mass/volume] in mg/dl to non-numeric Serum Health Serum or Plasma results) System Alkaline 129 Above high Alkaline [facility] phosphatase {IU/L} normal Phosphatase, Health isoenzymes Serum System [Enzymatic activity/volume] in Serum or Plasma by Heat stability Bilirubin.total 0.3 Normal (applies Bilirubin, [facility] [Mass/volume] in mg/dl to non-numeric Serum Total Health Serum or Plasma results) System Aspartate 15 Normal (applies Aspartate [facility] aminotransferase {IU/L} to non-numeric Transaminase, Heal [Enzymatic results) Serum System activity/volume] in Serum or Plasma by With P-5'-P Albumin 4.0 Normal (applies Albumin, [facility] [Mass/volume] in {gm/dl} to non-numeric Serum Health Serum or Plasma results) System I.Phosphorus 4.2 Normal (applies I. Phosphorus [facility] mg/dl to non-numeric Health results) System Alanine 14 Normal (applies Alanine [facility] aminotransferase {IU/L} to non-numeric Aminotransfer Heal th [Enzymatic results) ase, Serum System activity/volume] in Serum or Plasma Calcium 9.9 Normal (applies Calcium, [facility] [Mass/volume] in mg/dl to non-numeric Total Serum Health Serum or Plasma results) System A/GRatio 1.25 Normal (applies A/G Ratio [facility] to non-numeric Health results) System Urate 6.6 Normal (applies Uric Acid, [facility] [Mass/volume] in mg/dl to non-numeric Serum Health Serum or Plasma results) System Anion gap in Serum 15.00 Above high Anion Gap [facility] or Plasma mmol/L normal Health System Glomerular 52.95 Normal (applies GFR [facility] filtration to non-numeric Health rate/1.73 sq results) System M.predicted [Volume Rate/Area] in Serum or Plasma by Creatinine-based formula (CKD-EPI) eGFR will provide clinicians with a more accurate indicator of renal function then the serum creatinine. The eGFR is automa tically calculated from an empiric formula (endorsed by the National Kidney [employer] ion) which incorporates age, sex, and race.Clinicians may notice surprisingly low GFR's with serum creatinine valueswithin normal range- particularly in elderly wo men (with low muscle mass).In the hospital setting, the eGFR should add an element of safety in drug dosing, in assessing the risk of IV contrast administration, and in assessing vascular risk.The NKF staging system is as follows:Normal: eGFR >90 with no kidney markersStage 1: eGFR >90 with kidney markers*Stage 2: eGFR 60- 89Stage 3: eGFR 30-59Stage 4: eGFR 15-29Stage 5: eGFR <15 (usually requir ing dialysis)*Markers include: Proteinuria, Hematuria, abnormal imaging-studies, or other blood or urine test abnormalities ID Date Data Source [id number] 02/04/2019 04:16:09 PM EST [facility] Name Value Range Interpretation Description Data Sup porting Code Source(s) Document(s ) Phenytoin Less Below low normal Phenytoin [facility] [Mass/volume] than 2.5 Level, Serum Health System in Serum or Plasma ID Date Data Source [id number] 02/04/2019 04:16:09 PM EST [facility] System Name Value Range Interpretation Description Data Sup porting Code Source(s) Document(s ) Phenobarbital 0.1 Below low normal Phenobarbital Jono savi [Mass/volume] in ug/ml Level, Serum Health Serum or Plasma System ID Date Data Source [id number] 02/04/2019 04:16:09 PM EST [facility] Name Value Range Interpretation Description Data Sup porting Code Source(s) Document(s ) Deprecated Micro Result Normal (applies Aerobic [facility] Bacteria Final Culture to non-numeric Culture, Health identified Reading results) Urine System in Urine by Note::"MULTIPL Aerobe E BACTERIAL culture MORPHOTYPES PRESENT, POSSIBLE CONTAMINATION, SUGGEST RECOLLECTION IF CLINICALLY INDICATED". ID Date Data Source [id number] 02/04/2019 04:16:09 PM EST [facility] Name Value Range Interpretation Description Data Sup porting Code Source(s) Document(s ) Leukocytes 10.5 10 Normal (applies WBC Count [facility] [#/volume] in to non-numeric Health Unspecified results) System specimen by Automated count Erythrocytes 5.46 10 Above high normal RBC Count [facility] [#/volume] in Health Blood by System Automated count Hemoglobin 15.9 Normal (applies Hemoglobin, [facility] [Mass/volume] in {gm/dL} to non-numeric Whole Blood Health Blood results) System Hematocrit 46.5 % Above high normal Hematocrit, [facility] [Volume Whole Blood Health Fraction] of System Blood Erythrocyte mean 85.2 fl Normal (applies MCV [facility] corpuscular to non-numeric Health volume [Entitic results) System volume] by Automated count Erythrocyte mean 29.1 pg Normal (applies MCH [facility] corpuscular to non-numeric Health hemoglobin results) System [Entitic mass] by Automated count Erythrocyte mean 34.2 Normal (applies MCHC [facility] corpuscular {gm/dL} to non-numeric Health hemoglobin results) System concentration [Mass/volume] by Automated count Erythrocyte 14.7 % Above high normal RDW-CV [facility] distribution Health width [Entitic System volume] by Automated count Platelets 389 10 Normal (applies Platelet [facility] [#/volume] in to non-numeric Count Health Plasma by results) System Automated count Platelet mean 10.2 fl Normal (applies MPV [facility] volume [Entitic to non-numeric Health volume] in Blood results) System by Automated count Monocytes 0.7 10 Normal (applies Monocyte [facility] [#/volume] in to non-numeric Count Health Blood by Manual results) System count Eosinophils 0.3 10 Above high normal Eosinophil [facility] [#/volume] in Count Blood Health Blood System Neutrophils 5.3 10 Normal (applies Absolute [facility] [#/volume] in to non-numeric Neutrophil Health Body fluid results) Count System Basophils 0.0 10 Normal (applies Basophil [facility] [#/volume] in to non-numeric Count Health Blood by results) System Automated count Lymphocyte 4.1 10 Normal (applies Lymphocyte [facility] percent to non-numeric Absolute Health differential results) System count (procedure) Neutrophils/100 50.7 % Normal (applies Neutrophil % Jono savi leukocytes in to non-numeric Health Blood by results) System Automated count Monocytes/100 6.8 % Normal (applies Monocyte % [facility] leukocytes in to non-numeric Health Blood results) System Eosinophils/100 3.2 % Above high normal Eosinophil % [facility] leukocytes in Health Unspecified System specimen Basophils/100 0.4 % Normal (applies Basophil % [facility] leukocytes in to non-numeric Health Unspecified results) System specimen by Manual count Lymphocytes 38.9 % Normal (applies Lymphocyte % [facility] [#/volume] in to non-numeric Health Blood by results) System Automated count ID Date Data Source [id number] 02/04/2019 04:16:09 PM EST [facility] Name Value Range Interpretation Description Data Sup porting Code Source(s) Document(s ) Sodium 142 Normal (applies Sodium, Serum [facility] [Moles/volume] mmol/L to non-numeric Health in Serum or results) System Plasma Potassium 4.5 Normal (applies Potassium, [facility] [Mass/volume] mmol/L to non-numeric Serum Health in Serum or results) System Plasma Chloride 109 Above high normal Chloride, [facility] [Moles/volume] mmol/L Serum Health in Serum or System Plasma Carbon dioxide, 21.0 Below low normal CO2, Serum [facility] total mmol/L Health [Moles/volume] System in Serum or Plasma TotalProtein 7.5 Normal (applies Total Protein [facility] mg/dl to non-numeric Health results) System Glucose 111 Above high normal Glucose, Serum [facility] [Mass/volume] mg/dL Health in Serum or System Plasma [place] Urea nitrogen 11 mg/dl Normal (applies Blood Urea [facility] [Mass/volume] in Serum to non-numeric Nitrogen, Se rum Health System or Plasma results) Creatinine 1.00 mg/dl Normal (applies Creatinine, [facility] [Mass/volume] in Serum to non-numeric Serum He alth System or Plasma results) Alkaline phosphatase 128 {IU/L} Above high normal Alkaline [facility] isoenzymes [Enzymatic Phosphatase, Healt h System activity/volume] in Serum Serum or Plasma by Heat stability Bilirubin.total 0.4 mg/dl Normal (applies Bilirubin, [facility] [Mass/volume] in Serum to non-numeric Serum Total Health System or Plasma results) Aspartate 17 {IU/L} Normal (applies Aspartate [facility] aminotransferase to non-numeric Transaminase, Heal th System [Enzymatic results) Serum activity/volume] in Serum or Plasma by With P-5'-P Albumin [Mass/volume] 4.1 {gm/dl} Normal (applies Albumin, S barrie [facility] in Serum or Plasma to non-numeric Health System results) SLIGHTLY HEMOLYZED SPECIMEN! I.Phosphorus 4.0 mg/dl Normal (applies I. Phosphorus [facility] to non-numeric Health System results) Alanine 14 {IU/L} Normal (applies Alanine [facility] aminotransferase to non-numeric Aminotransferase H ealt System [Enzymatic results) , Serum activity/volume] in Serum or Plasma Calcium [Mass/volume] 10.7 mg/dl Above high normal Calcium, Total [facility] in Serum or Plasma Serum Health Syst em A/GRatio 1.21 Normal (applies A/G Ratio [facility] to non-numeric Health System results) Urate [Mass/volume] in 6.4 mg/dl Normal (applies Uric Acid, Serum [facility] Serum or Plasma to non-numeric Health Sy stem results) Anion gap in Serum or 12.00 Normal (applies Anion Gap [facility] Plasma mmol/L to non-numeric Health System results) Glomerular filtration 59.10 Normal (applies GFR [facility] rate/1.73 sq to non-numeric Health Syste m M.predicted [Volume results) Rate/Area] in Serum or Plasma by Creatinine-based formula (CKD-EPI) eGFR will provide clinicians with a more accurate indicator of renal function then the serum creatinine. The eGFR is automa tically calculated from an empiric formula (endorsed by the National Kidney [employer] ion) which incorporates age, sex, and race.Clinicians may notice surprisingly low GFR's with serum creatinine valueswithin normal range- particularly in elderly wo men (with low muscle mass).In the hospital setting, the eGFR should add an element of safety in drug dosing, in assessing the risk of IV contrast administration, and in assessing vascular risk.The NKF staging system is as follows:Normal: eGFR >90 with no kidney markersStage 1: eGFR >90 with kidney markers*Stage 2: eGFR 60- 89Stage 3: eGFR 30-59Stage 4: eGFR 15-29Stage 5: eGFR <15 (usually requir ing dialysis)*Markers include: Proteinuria, Hematuria, abnormal imaging-studies, or other blood or urine test abnormalities ID Date Data Source [id number] 02/04/2019 04:16:09 PM EST [facility] Name Value Range Interpretation Description Data Source(s ) Supporting Code Document(s ) Lipase 60 U/L Normal (applies to Lipase, Serum [facility] [Enzymatic non-numeric Health System activity/vo results) lume] in Serum or Plasma ID Date Data Source [id number] 02/04/2019 04:16:09 PM EST [facility] Name Value Range Interpretation Description Data Sup porting Code Source(s) Document(s ) Amphetamine Negative Normal (applies Amphetamine [facility] [Mass/volume] to non-numeric Level, Urine Health in Urine results) System Cut-off = 1000 ng/mL Barbiturates Negative Normal (applies to Barbiturate [facility] [Mass/volume] in non-numeric Screen, Urine Health System Urine by Screen results) method Cut-off = 200 ng/mL Benzodiazepines Negative Normal (applies Benzodiazepines, [facility] [Mass/volume] in to non-numeric Urine Health S ystem Urine results) Cut-off = 200 ng/mL Cocaine Positive Abnormal (applies Cocaine [facility] metabolites.other to non-numeric Metabolite Health System [Mass/volume] in Urine results) Screen, Urine Cut-off = 300 ng/mL Methadone Negative Normal (applies to Methadone Level, [facility] [Mass/volume] in non-numeric Urine System Urine results) Cut-off = 300 ng/mL [id number],Urine Negative Normal (applies to Opiate 300, [facility] non-numeric results) Urine System Cut-off = 300 ng/mL Phencyclidine Negative Normal (applies Phencyclidine, Urine [facility] [Mass/volume] in to non-numeric Health S ystem Urine results) Cut-off = 25 ng/mL THC Negative Normal (applies to non-numeric resul ts) THC [facility] System These results are for medical treatment only. The positive findings are unconfirmed. Request confirmatory/quantitative test i f needed. ID Date Data Source [id number] 02/04/2019 04:16:09 PM EST [facility] System Name Value Range Interpretation Description Data Sup porting Code Source(s) Document(s ) Deprecated Micro Normal (applies Aerobic [facility] Bacteria ResultNO to non-numeric Culture, Health identified in GROWTH results) Urine System Urine by Aerobe culture ID Date Data Source [id number] 02/04/2019 04:16:09 PM EST [facility] Name Value Range Interpretation Description Data Source(s ) Supporting Code Document(s ) Pregnanc Negative Normal (applies to Test [facility] yTestUri non-numeric Urine, Health System ne,Visib results) Visibility ilityCol Color Complete orComple te This test can detect HCG urine concentra tion of 25mIU/ml or greater. Negative result at 4 minute reading does not rule out ea rly . If clinically indicated, serum quantitative HCG test should be ordered. ID Date Data Source [id number] 02/04/2019 04:16:09 PM EST [facility] Name Value Range Interpretation Description Data Sup porting Code Source(s) Document(s ) Color YELLOW Normal (applies Color [facility] to non-numeric Health results) System Appearance of CLEAR Normal (applies Urine [facility] Urine to non-numeric Appearance Health results) System Specific 1.020 Normal (applies Urine [facility] gravity of to non-numeric Specific Health Urine results) [place] System pH.. 6.5 Normal (applies pH.. [facility] {pH_units} to non-numeric Health results) System Glucose,UA NEGATIVE Normal (applies Glucose, UA [facility] to non-numeric Health results) System Negative Protein NEGATIVE Normal (applies Protein [facility] [Mass/volume] in to non-numeric Health S yste Serum or Plasma results) BilirubinUrine NEGATIVE Normal (applies Bilirubin Urine [facility] to non-numeric Health System results) Urobilinogen 0.20 {eu/dL} Normal (applies Urobilinogen UA [facility] [Mass/volume] in to non-numeric Health S ystem Urine results) Ketones NEGATIVE Normal (applies Ketones UA [facility] [Mass/volume] in to non-numeric Health S ystem Urine results) Negative Nitrate+Nitrite NEGATIVE Normal (applies to Nitrite Jon[facility] savi Health [Mass/volume] in non-numeric results) Sy stem Unspecified specimen Negative Leukocyte esterase SMALL Normal (applies to Leukocyte Es terase [facility] [Units/volume] in non-numeric Concentration Health System Urine results) Negative Leukocytes 2-5 Normal (applies to White Blood Cells [facility] [#/volume] in non-numeric Health System Unspecified specimen results) by Automated count RedBloodCells 0-2 Normal (applies to Red Blood Cells [facility] non-numeric Health System results) Epithelial cells 10-20 Normal (applies to Epithelial Krystal ls [facility] [Presence] in non-numeric Health System Unspecified specimen results) by Wet preparation Mucus FEW Normal (applies to Mucus [facility] non-numeric Health System results) UrineBlood TRACE-INTA Normal (applies to Urine Blood [facility] [place] non-numeric Health System results) ID Date Data Source [id number] 02/04/2019 04:16:09 PM EST [facility] System RN Collect Name Value Range Interpretation Description Data Sup porting Code Source(s) Document(s ) Color YELLOW Normal (applies Color [facility] to non-numeric Health results) System Appearance of CLEAR Normal (applies Urine [facility] Urine to non-numeric Appearance Health results) System Specific gravity 1.025 Normal (applies Urine Specific [facility] of Urine to non-numeric [place] [facility] results) System pH.. 6.0 Normal (applies pH.. [facility] {pH_units} to non-numeric Health results) System Glucose,UA NEGATIVE Normal (applies Glucose, UA [facility] to non-numeric Health results) System Protein NEGATIVE Normal (applies Protein [facility] [Mass/volume] in to non-numeric Health Serum or Plasma results) System BilirubinUrine NEGATIVE Normal (applies Bilirubin [facility] to non-numeric Urine Health results) System Urobilinogen 0.20 mg/dL Normal (applies Urobilinogen [facility] [Mass/volume] in to non-numeric UA Health Urine results) System Ketones NEGATIVE Normal (applies Ketones UA [facility] [Mass/volume] in to non-numeric Health Urine results) System Nitrate+Nitrite NEGATIVE Normal (applies Nitrite [facility] [Mass/volume] in to non-numeric Health Unspecified results) System specimen Leukocyte NEGATIVE Normal (applies Leukocyte [facility] esterase to non-numeric Esterase Health [Units/volume] results) Concentration System in Urine Leukocytes 0-1 Normal (applies White Blood [facility] [#/volume] in to non-numeric Cells Health Unspecified results) System specimen by Automated count RedBloodCells 5-10 Normal (applies Red Blood [facility] to non-numeric Cells Health results) System Epithelial cells OCC Normal (applies Epithelial [facility] [Presence] in to non-numeric Cells Health Unspecified results) System specimen by Wet preparation Bacteria FEW Normal (applies Bacteria [facility] [Presence] in to non-numeric Health Unspecified results) System specimen UrineBlood LARGE Normal (applies Urine Blood [facility] to non-numeric Health results) System ID Date Data Source [id number] 02/04/2019 04:16:09 PM EST [facility] Name Value Range Interpretation Description Data Sup porting Code Source(s) Document(s ) Leukocytes 7.6 10 Normal (applies WBC Count [facility] [#/volume] in to non-numeric Health Unspecified results) System specimen by Automated count Erythrocytes 5.36 10 Above high normal RBC Count [facility] [#/volume] in Health Blood by System Automated count Hemoglobin 15.5 Normal (applies Hemoglobin, [facility] [Mass/volume] in {gm/dL} to non-numeric Whole Blood Health Blood results) System Hematocrit 45.9 % Normal (applies Hematocrit, [facility] [Volume to non-numeric Whole Blood Health Fraction] of results) System Blood Erythrocyte mean 85.6 fl Normal (applies MCV [facility] corpuscular to non-numeric Health volume [Entitic results) System volume] by Automated count Erythrocyte mean 28.9 pg Normal (applies MCH [facility] corpuscular to non-numeric Health hemoglobin results) System [Entitic mass] by Automated count Erythrocyte mean 33.8 Normal (applies MCHC [facility] corpuscular {gm/dL} to non-numeric Health hemoglobin results) System concentration [Mass/volume] by Automated count Erythrocyte 14.9 % Above high normal RDW-CV [facility] distribution Health width [Entitic System volume] by Automated count Platelets 299 10 Normal (applies Platelet [facility] [#/volume] in to non-numeric Count Health Plasma by results) System Automated count Platelet mean 10.2 fl Normal (applies MPV [facility] volume [Entitic to non-numeric Health volume] in Blood results) System by Automated count Monocytes 0.6 10 Normal (applies Monocyte [facility] [#/volume] in to non-numeric Count Health Blood by Manual results) System count Eosinophils 0.1 10 Normal (applies Eosinophil [facility] [#/volume] in to non-numeric Count Blood Health Blood results) System Neutrophils 4.6 10 Normal (applies Absolute [facility] [#/volume] in to non-numeric Neutrophil Health Body fluid results) Count System Basophils 0.0 10 Normal (applies Basophil [facility] [#/volume] in to non-numeric Count Health Blood by results) System Automated count Lymphocyte 2.2 10 Normal (applies Lymphocyte [facility] percent to non-numeric Absolute Health differential results) System count (procedure) Neutrophils/100 60.4 % Normal (applies Neutrophil % [facility] leukocytes in to non-numeric Health Blood by results) System Automated count Monocytes/100 7.8 % Normal (applies Monocyte % [facility] leukocytes in to non-numeric Health Blood results) System Eosinophils/100 1.6 % Normal (applies Eosinophil % [place] leukocytes in to non-numeric Health Unspecified results) System specimen Basophils/100 0.5 % Normal (applies Basophil % [facility] leukocytes in to non-numeric Health Unspecified results) System specimen by Manual count Lymphocytes 29.7 % Normal (applies Lymphocyte % [facility] [#/volume] in to non-numeric Health Blood by results) System Automated count ID Date Data Source [id number] 02/04/2019 04:16:09 PM EST [facility] Name Value Range Interpretation Description Data Sup porting Code Source(s) Document(s ) HCGQualitative NEGATIVE Normal (applies HCG [facility] to non-numeric Qualitative Health results) System Default Normal RangesNegative <5Indeterm inate 5-25(Please repeat in 2 days.)Positive >25 ID Date Data Source [id number] 02/04/2019 04:16:09 PM EST [facility] Name Value Range Interpretation Description Data Sup porting Code Source(s) Document(s ) Sodium 142 Normal (applies Sodium, Serum [facility] [Moles/volume] in mmol/L to non-numeric Health Serum or Plasma results) System Potassium 3.8 Normal (applies Potassium, [facility] [Mass/volume] in mmol/L to non-numeric Serum Health Serum or Plasma results) System Chloride 107 Normal (applies Chloride, [facility] [Moles/volume] in mmol/L to non-numeric Serum Health Serum or Plasma results) System Carbon dioxide, 25.0 Normal (applies CO2, Serum [facility] total mmol/L to non-numeric Health [Moles/volume] in results) System Serum or Plasma TotalProtein 7.3 Normal (applies Total Protein [facility] mg/dl to non-numeric Health results) System Glucose 112 Above high Glucose, [facility] [Mass/volume] in mg/dL normal Serum Health Serum or Plasma System Urea nitrogen 9 mg/dl Normal (applies Blood Urea [facility] [Mass/volume] in to non-numeric Nitrogen, Health Serum or Plasma results) Serum System Creatinine 1.00 Normal (applies Creatinine, [facility] [Mass/volume] in mg/dl to non-numeric Serum Health Serum or Plasma results) System Alkaline 118 Normal (applies Alkaline [facility] phosphatase {IU/L} to non-numeric Phosphatase, Health isoenzymes results) Serum System [Enzymatic activity/volume] in Serum or Plasma by Heat stability Bilirubin.total 0.2 Normal (applies Bilirubin, [facility] [Mass/volume] in mg/dl to non-numeric Serum Total Health Serum or Plasma results) System Aspartate 14 Normal (applies Aspartate [facility] aminotransferase {IU/L} to non-numeric Transaminase, Heal th [Enzymatic results) Serum System activity/volume] in Serum or Plasma by With P-5'-P Albumin 4.0 Normal (applies Albumin, [facility] [Mass/volume] in {gm/dl} to non-numeric Serum Health Serum or Plasma results) System I.Phosphorus 3.2 Normal (applies I. Phosphorus [facility] mg/dl to non-numeric Health results) System Alanine 19 Normal (applies Alanine [facility] aminotransferase {IU/L} to non-numeric Aminotransfer Heal th [Enzymatic results) ase, Serum System activity/volume] in Serum or Plasma Calcium 10.7 Above high Calcium, [facility] [Mass/volume] in mg/dl normal Total Serum Health Serum or Plasma System A/GRatio 1.21 Normal (applies A/G Ratio [facility] to non-numeric Health results) System Urate 5.4 Normal (applies Uric Acid, [facility] [Mass/volume] in mg/dl to non-numeric Serum Health Serum or Plasma results) System Anion gap in Serum 10.00 Normal (applies Anion Gap [facility] or Plasma mmol/L to non-numeric Health results) System Glomerular 59.08 Normal (applies GFR [facility] filtration to non-numeric Health rate/1.73 sq results) System M.predicted [Volume Rate/Area] in Serum or Plasma by Creatinine-based formula (CKD-EPI) eGFR will provide clinicians with a more accurate indicator of renal function then the serum creatinine. The eGFR is automa tically calculated from an empiric formula (endorsed by the [employer] ion) which incorporates age, sex, and race.Clinicians may notice surprisingly low GFR's with serum creatinine valueswithin normal range- particularly in elderly wo men (with low muscle mass).In the hospital setting, the eGFR should add an element of safety in drug dosing, in assessing the risk of IV contrast administration, and in assessing vascular risk.The NKF staging system is as follows:Normal: eGFR >90 with no kidney markersStage 1: eGFR >90 with kidney markers*Stage 2: eGFR 60- 89Stage 3: eGFR 30-59Stage 4: eGFR 15-29Stage 5: eGFR <15 (usually requir ing dialysis)*Markers include: Proteinuria, Hematuria, abnormal imaging-studies, or other blood or urine test abnormalities ID Date Data Source [id number] 02/04/2019 04:16:09 PM EST [facility] System Name Value Range Interpretation Description Data Sup porting Code Source(s) Document(s ) Phenytoin Less Below low normal Phenytoin [facility] [Mass/volume] than Level, Serum Health System in Serum or 0.50 Plasma ID Date Data Source [id number] 02/04/2019 04:16:09 PM EST [facility] System Name Value Range Interpretation Description Data Sup porting Code Source(s) Document(s ) Phenobarbital Less Below low normal Phenobarbital [facility] [Mass/volume] in than Level, Serum Health Serum or Plasma 1.10 System ID Date Data Source [id number] 02/04/2019 04:16:09 PM EST [facility] System Name Value Range Interpretation Description Data Sup porting Code Source(s) Document(s ) AlcoholE NON DETECTED Normal (applies to Alcohol Ethyl, [facility] thyl,Blo None non-numeric Blood Health System od Detected results) ID Date Data Source [id number] 02/04/2019 04:16:09 PM EST [facility] System Name Value Range Interpretation Description Data Sup porting Code Source(s) Document(s ) Amphetamine Negative Normal (applies Amphetamine [facility] [Mass/volume] to non-numeric Level, Urine Health in Urine results) System Cut-off = 1000 ng/mL Barbiturates Negative Normal (applies to Barbiturate [facility] [Mass/volume] in non-numeric Screen, Urine Health System Urine by Screen results) method Cut-off = 200 ng/mL Benzodiazepines Negative Normal (applies Benzodiazepines, [facility] [Mass/volume] in to non-numeric Urine [facility] Urine results) Cut-off = 200 ng/mL Cocaine Negative Normal (applies Cocaine [facility] metabolites.other to non-[facility] Metabolite [facility] System [Mass/volume] in Urine results) Screen, Urine Cut-off = 300 ng/mL Methadone Negative Normal (applies to Methadone Level, [facility] [Mass/volume] in non-numeric Urine System Urine results) Cut-off = 300 ng/mL [id number],Urine Negative Normal (applies to Opiate 300, Mon [facility] non-numeric results) Urine System Cut-off = 300 ng/mL Phencyclidine Negative Normal (applies Phencyclidine, Urine [facility] [Mass/volume] in to non-[facility] Urine results) Cut-off = 25 ng/mL THC Negative Normal (applies to non-numeric resul ts) THC [facility] System These results are for medical treatment only. The positive findings are unconfirmed. Request confirmatory/quantitative test i f needed. ID Date Data Source [id number] 02/04/2019 04:16:09 PM EST [facility] alth System Name Value Range Interpretation Description Data Sup porting Code Source(s) Document(s ) Prothrombintim 10.30 Normal (applies Prothrombin [facility] e(PT) {seconds to non-numeric time (PT) Health System } results) INR in Blood 0.99 Normal (applies INR Result [facility] by Coagulation {Ratio} to non-[facility] Sys tem assay results) Normal = 0.7-1.1Therapeutic = 2.0-3.0Mec hanical Heart = 3.0-4.5 ID Date Data Source [id number] 02/04/2019 04:16:09 PM EST [facility] alth System Name Value Range Interpretation Description Data Sup porting Code Source(s) Document(s ) Leukocytes 5.8 Normal (applies WBC Count [facility] [#/volume] in {10^3_uL to non-[facility] Health Unspecified } results) System specimen by Automated count Erythrocytes 5.07 Normal (applies RBC Count [facility] [#/volume] in {10^6_uL to non-numeric Health Blood by } results) System Automated count Hemoglobin 15.0 Normal (applies Hemoglobin [facility] [Mass/volume] in {gm/dL} to non-numeric Health Blood results) System Hematocrit 45.5 % Normal (applies Hematocrit [facility] [Volume to non-numeric Health Fraction] of results) System Blood Erythrocyte mean 89.7 fl Normal (applies MCV [facility] corpuscular to non-numeric Health volume [Entitic results) System volume] by Automated count Erythrocyte mean 29.6 pg Normal (applies MCH [facility] corpuscular to non-numeric Health hemoglobin results) System [Entitic mass] by Automated count Erythrocyte mean 33.0 Normal (applies MCHC [facility] corpuscular {gm/dL} to non-numeric Health hemoglobin results) System concentration [Mass/volume] by Automated count Erythrocyte 15.0 % Above high normal RDW-CV [facility] distribution Health width [Entitic System volume] by Automated count Platelets 306 Normal (applies Platelet [facility] [#/volume] in {10^3_uL to non-numeric Count Health Plasma by } results) System Automated count Platelet mean 10.7 fl Above high normal MPV [facility] volume [Entitic Health volume] in Blood System by Automated count Monocytes 0.4 Normal (applies Monocyte # [facility] [#/volume] in {10^3_uL to non-numeric Health Blood by Manual } results) System count Eosinophils 0.05 Normal (applies Eosinophil # [facility] [#/volume] in {10^3_uL to non-numeric Health Blood } results) System Neutrophils 3.5 Normal (applies Neutrophil # [facility] [#/volume] in {10^3_uL to non-numeric Health Body fluid } results) System Basophils 0.03 Normal (applies Basophil # [facility] [#/volume] in {10^3_uL to non-numeric Health Blood by } results) System Automated count Lymphocyte 1.9 Normal (applies Lymphocyte # [facility] percent {10^3_uL to non-numeric Health differential } results) System count (procedure) Neutrophils/100 59.8 % Normal (applies Neutrophil % [place] [facility] leukocytes in to non-numeric Health Blood by results) System Automated count Monocytes/100 6.2 % Normal (applies Monocyte % [facility] leukocytes in to non-numeric Health Blood results) System Eosinophils/100 0.9 % Below low normal Eosinophil % [facility] leukocytes in Health Unspecified System specimen Basophils/100 0.5 % Normal (applies Basophil % [facility] leukocytes in to non-numeric Health Unspecified results) System specimen by Manual count Lymphocytes 32.6 % Normal (applies Lymphocyte % [facility] [#/volume] in to non-numeric Health Blood by results) System Automated count ID Date Data Source [id number] 02/04/2019 04:16:09 PM EST [facility] Name Value Range Interpretation Description Data Sup porting Code Source(s) Document(s ) Sodium 142 Normal (applies Sodium, Serum [facility] [Moles/volume] in mmol/L to non-numeric Health Serum or Plasma results) System Potassium 4.1 Normal (applies Potassium, [facility] [Mass/volume] in mmol/L to non-numeric Serum Health Serum or Plasma results) System Chloride 107 Normal (applies Chloride, [facility] [Moles/volume] in mmol/L to non-numeric Serum Health Serum or Plasma results) System Carbon dioxide, 24.0 Normal (applies CO2, Serum [facility] total mmol/L to non-numeric Health [Moles/volume] in results) System Serum or Plasma TotalProtein 7.2 Normal (applies Total Protein [facility] mg/dl to non-numeric Health results) System Glucose 93 Normal (applies Glucose, [facility] [Mass/volume] in mg/dL to non-numeric Serum Health Serum or Plasma results) System Urea nitrogen 16 Normal (applies Blood Urea [facility] [Mass/volume] in mg/dl to non-numeric Nitrogen, Health Serum or Plasma results) Serum System Creatinine 1.00 Normal (applies Creatinine, [facility] [Mass/volume] in mg/dl to non-numeric Serum Health Serum or Plasma results) System Alkaline 106 Normal (applies Alkaline [facility] phosphatase {IU/L} to non-numeric Phosphatase, Health isoenzymes results) Serum System [Enzymatic activity/volume] in Serum or Plasma by Heat stability Bilirubin.total 0.3 Normal (applies Bilirubin, [facility] [Mass/volume] in mg/dl to non-numeric Serum Total Health Serum or Plasma results) System DirectBilirubin 0.1 Normal (applies Direct [facility] mg/dl to non-numeric Bilirubin Health results) System Aspartate 13 Normal (applies Aspartate [facility] aminotransferase {IU/L} to non-numeric Transaminase, Heal th [Enzymatic results) Serum System activity/volume] in Serum or Plasma by With P-5'-P Albumin 4.3 Normal (applies Albumin, [facility] [Mass/volume] in {gm/dl} to non-numeric Serum Health Serum or Plasma results) System I.Phosphorus 3.5 Normal (applies I. Phosphorus [facility] mg/dl to non-numeric Health results) System Alanine 14 Normal (applies Alanine [facility] aminotransferase {IU/L} to non-numeric Aminotransfer Heal th [Enzymatic results) ase, Serum System activity/volume] in Serum or Plasma Calcium 10.5 Above high Calcium, [facility] [Mass/volume] in mg/dl normal Total Serum Health Serum or Plasma System A/GRatio 1.48 Normal (applies A/G Ratio [facility] to non-numeric Health results) System Urate 4.6 Normal (applies Uric Acid, [facility] [Mass/volume] in mg/dl to non-numeric Serum Health Serum or Plasma results) System Anion gap in Serum 11.00 Normal (applies Anion Gap [place] [facility] or Plasma mmol/L to non-numeric Health results) System Glomerular 58.89 Normal (applies GFR [facility] filtration to non-numeric Health rate/1.73 sq results) System M.predicted [Volume Rate/Area] in Serum or Plasma by Creatinine-based formula (CKD-EPI) eGFR will provide clinicians with a more accurate indicator of renal function then the serum creatinine. The eGFR is automa tically calculated from an empiric formula (endorsed by the National Kid[employer] ion) which incorporates age, sex, and race.Clinicians may notice surprisingly low GFR's with serum creatinine valueswithin normal range- particularly in elderly wo men (with low muscle mass).In the hospital setting, the eGFR should add an element of safety in drug dosing, in assessing the risk of IV contrast administration, and in assessing vascular risk.The NKF staging system is as follows:Normal: eGFR >90 with no kidney markersStage 1: eGFR >90 with kidney markers*Stage 2: eGFR 60- 89Stage 3: eGFR 30-59Stage 4: eGFR 15-29Stage 5: eGFR <15 (usually requir ing dialysis)*Markers include: Proteinuria, Hematuria, abnormal imaging-studies, or other blood or urine test abnormalities ID Date Data Source [id number] 02/04/2019 04:16:09 PM [facility] System Name Value Range Interpretation Description Data Sup porting Code Source(s) Document(s ) TroponinIQuantitative 0.01 Normal (applies Troponin I [facility] ng/ml to non-numeric Quantitative Health results) System ID Date Data Source [id number] 02/04/2019 04:16:09 PM EST [facility] System Name Value Range Interpretation Description Data Sup porting Code Source(s) Document(s ) Amphetamine Negative Normal (applies Amphetamine [facility] [Mass/volume] to non-numeric Level, Urine Health in Urine results) System Cut-off = 1000 ng/mL Barbiturates Positive Abnormal (applies Barbiturate [facility] [Mass/volume] in to non-numeric Screen, Urine Heal th System Urine by Screen results) method Cut-off = 200 ng/mL Benzodiazepines Negative Normal (applies Benzodiazepines, [facility] [Mass/volume] in to non-numeric Urine Health S yste Urine results) Cut-off = 200 ng/mL Cocaine Positive Abnormal (applies Cocaine [facility] metabolites.other to non-numeric Metabolite Health System [Mass/volume] in Urine results) Screen, Urine Cut-off = 300 ng/mL Methadone Negative Normal (applies to Methadone Level, [facility] [Mass/volume] in non-numeric Urine System Urine results) Cut-off = 300 ng/mL [id number],Urine Negative Normal (applies to Opiate 300, [facility] non-numeric results) Urine System Cut-off = 300 ng/mL Phencyclidine Negative Normal (applies Phencyclidine, Urine [facility] [Mass/volume] in to non-numeric Health S ystem Urine results) Cut-off = 25 ng/mL THC Negative Normal (applies to non-numeric resul ts) THC [facility] Health System Cutt-off = 50These results are for medic al treatment only. The positive findings are unconfirmed. Request confirmatory/quanti tative test if needed. ID Date Data Source [id number] 02/04/2019 04:16:09 PM [facility] System Name Value Range Interpretation Description Data Sup porting Code Source(s) Document(s ) aPTT in Blood 25.9 Normal (applies Activated [facility] by Coagulation {Seconds to non-numeric Partial Health assay } results) Thromboplastin System Time ID Date Data Source [id number] 02/04/2019 04:16:09 PM EST [facility] System Name Value Range Interpretation Description Data Sup porting Code Source(s) Document(s ) Prothrombintim 9.80 Normal (applies Prothrombin [facility](PT) {seconds to non-numeric time (PT) Health System } results) INR in Blood 0.94 Normal (applies INR Result [facility] by Coagulation {Ratio} to non-numeric Health Sys tem assay results) Normal = 0.7-1.1Therapeutic = 2.0-3.0Mec hanical Heart = 3.0-4.5 ID Date Data Source [id number] 02/04/2019 04:16:09 PM EST [facility] System Name Value Range Interpretation Description Data Sup porting Code Source(s) Document(s ) Leukocytes 10.2 Normal (applies WBC Count [facility] [#/volume] in {10^3_uL to non-numeric Health Unspecified } results) System specimen by Automated count Erythrocytes 4.76 Normal (applies RBC Count [facility] [#/volume] in {10^6_uL to non-numeric Health Blood by } results) System Automated count Hemoglobin 14.2 Normal (applies Hemoglobin [facility] [Mass/volume] in {gm/dL} to non-numeric Health Blood results) System Hematocrit 42.6 % Normal (applies Hematocrit [facility] [Volume to non-numeric Health Fraction] of results) System Blood Erythrocyte mean 89.5 fl Normal (applies MCV [facility] corpuscular to non-numeric Health volume [Entitic results) System volume] by Automated count Erythrocyte mean 29.8 pg Normal (applies MCH [facility] corpuscular to non-numeric Health hemoglobin results) System [Entitic mass] by Automated count Erythrocyte mean 33.3 Normal (applies MCHC [facility] corpuscular {gm/dL} to non-numeric Health hemoglobin results) System concentration [Mass/volume] by Automated count Erythrocyte 14.6 % Above high normal RDW-CV [facility] distribution Health width [Entitic System volume] by Automated count Platelets 332 Normal (applies Platelet [facility] [#/volume] in {10^3_uL to non-numeric Count Health Plasma by } results) System Automated count Platelet mean 10.6 fl Above high normal MPV [facility] volume [Entitic Health volume] in Blood System by Automated count Monocytes 0.9 Normal (applies Monocyte # [facility] [#/volume] in {10^3_uL to non-numeric Health Blood by Manual } results) System count Eosinophils 0.16 Normal (applies Eosinophil # [facility] [#/volume] in {10^3_uL to non-numeric Health Blood } results) System Neutrophils 6.4 Normal (applies Neutrophil # [facility] [#/volume] in {10^3_uL to non-numeric Health Body fluid } results) System Basophils 0.03 Normal (applies Basophil # [facility] [#/volume] in {10^3_uL to non-numeric Health Blood by } results) System Automated count Lymphocyte 2.7 Normal (applies Lymphocyte # [facility] percent {10^3_uL to non-numeric Health differential } results) System count (procedure) Neutrophils/100 62.7 % Normal (applies Neutrophil % [facility] leukocytes in to non-numeric Health Blood by results) System Automated count Monocytes/100 8.6 % Normal (applies Monocyte % [facility] leukocytes in to non-numeric Health Blood results) System Eosinophils/100 1.6 % Normal (applies Eosinophil % [place] leukocytes in to non-numeric Health Unspecified results) System specimen Basophils/100 0.3 % Normal (applies Basophil % [facility] leukocytes in to non-numeric Health Unspecified results) System specimen by Manual count Lymphocytes 26.8 % Normal (applies Lymphocyte % [facility] [#/volume] in to non-numeric Health Blood by results) System Automated count ID Date Data Source [id number] 02/04/2019 04:16:09 PM EST [facility] Name Value Range Interpretation Description Data Sup porting Code Source(s) Document(s ) HCGQualitative NEGATIVE Normal (applies HCG [facility] to non-numeric [facility]itative [facility] results) System Default Normal RangesNegative <5Indeterm inate 5-25(Please repeat in 2 days.)Positive >25 ID Date Data Source [id number] 02/04/2019 04:16:09 PM EST [facility] Name Value Range Interpretation Description Data Sup porting Code Source(s) Document(s ) Sodium 141 Normal (applies Sodium, Serum [facility] [Moles/volume] in mmol/L to non-numeric Health Serum or Plasma results) System Potassium 3.9 Normal (applies Potassium, [facility] [Mass/volume] in mmol/L to non-numeric Serum Health Serum or Plasma results) System Chloride 107 Normal (applies Chloride, [facility] [Moles/volume] in mmol/L to non-numeric Serum Health Serum or Plasma results) System Carbon dioxide, 25.0 Normal (applies CO2, Serum [facility] total mmol/L to non-numeric Health [Moles/volume] in results) System Serum or Plasma TotalProtein 6.8 Normal (applies Total Protein [facility] mg/dl to non-numeric [facility] results) System Glucose 100 Normal (applies Glucose, [facility] [Mass/volume] in mg/dL to non-numeric Serum Health Serum or Plasma results) System Urea nitrogen 14 Normal (applies Blood Urea [facility] [Mass/volume] in mg/dl to non-numeric Nitrogen, Health Serum or Plasma results) Serum System Creatinine 1.00 Normal (applies Creatinine, [facility] [Mass/volume] in mg/dl to non-numeric Serum Health Serum or Plasma results) System Alkaline 108 Normal (applies Alkaline [facility] phosphatase {IU/L} to non-numeric Phosphatase, Health isoenzymes results) Serum System [Enzymatic activity/volume] in Serum or Plasma by Heat stability Bilirubin.total 0.3 Normal (applies Bilirubin, [facility] [Mass/volume] in mg/dl to non-numeric Serum Total Health Serum or Plasma results) System DirectBilirubin 0.1 Normal (applies Direct [facility] mg/dl to non-numeric Bilirubin [facility] results) System Aspartate 12 Normal (applies Aspartate [facility] aminotransferase {IU/L} to non-numeric Transaminase, [facility]al [facility] [Enzymatic results) Serum System activity/volume] in Serum or Plasma by With P-5'-P Albumin 4.1 Normal (applies Albumin, [facility] [Mass/volume] in {gm/dl} to non-numeric Serum Health Serum or Plasma results) System I.Phosphorus 3.0 Normal (applies I. Phosphorus [facility] mg/dl to non-numeric [facility] results) System Alanine 14 Normal (applies Alanine [facility] aminotransferase {IU/L} to non-numeric Aminotransfer [facility] [Enzymatic results) ase, Serum System activity/volume] in Serum or Plasma Calcium 10.1 Normal (applies Calcium, [facility] [Mass/volume] in mg/dl to non-numeric Total Serum Health Serum or Plasma results) System A/GRatio 1.52 Normal (applies A/G Ratio [facility] to non-numeric [facility] results) System Urate 5.2 Normal (applies Uric Acid, [facility] [Mass/volume] in mg/dl to non-numeric Serum Health Serum or Plasma results) System Anion gap in Serum 9.00 Normal (applies Anion Gap [facility]i or Plasma mmol/L to non-numeric Health results) System Glomerular 58.88 Normal (applies GFR [facility] filtration to non-numeric Health rate/1.73 sq results) System M.predicted [Volume Rate/Area] in Serum or Plasma by Creatinine-based formula (CKD-EPI) eGFR will provide clinicians with a more accurate indicator of renal function then the serum creatinine. The eGFR is automa tically calculated from an empiric formula (endorsed by the [employer]) which incorporates age, sex, and race.Clinicians may notice surprisingly low GFR's with serum creatinine valueswithin normal range- particularly in elderly wo men (with low muscle mass).In the hospital setting, the eGFR should add an element of safety in drug dosing, in assessing the risk of IV contrast administration, and in assessing vascular risk.The NKF staging system is as follows:Normal: eGFR >90 with no kidney markersStage 1: eGFR >90 with kidney markers*Stage 2: eGFR 60- 89Stage 3: eGFR 30-59Stage 4: eGFR 15-29Stage 5: eGFR <15 (usually requir ing dialysis)*Markers include: Proteinuria, Hematuria, abnormal imaging-studies, or other blood or urine test abnormalities ID Date Data Source [id number] 02/04/2019 04:16:09 PM EST [facility] Name Value Range Interpretation Description Data Sup porting Code Source(s) Document(s ) Phenytoin < 0.50 Below low normal Phenytoin [facility] [Mass/volume] Level, Serum [facility] System in Serum or Plasma ID Date Data Source [id number] 02/04/2019 04:16:09 PM EST [facility] Name Value Range Interpretation Description Data Sup porting Code Source(s) Document(s ) Phenobarbital 1.0 Below low normal Phenobarbital [facility] [Mass/volume] in ug/ml Level, Serum Health Serum or Plasma System ID Date Data Source [id number] 02/04/2019 04:16:09 PM EST [facility] Name Value Range Interpretation Description Data Sup porting Code Source(s) Document(s ) TroponinIQuantitative 0.00 Normal (applies Troponin I [facility] ng/ml to non-numeric Quantitative Health results) System ID Date Data Source [id number] 02/04/2019 04:16:09 PM EST [facility] Name Value Range Interpretation Description Data Sup porting Code Source(s) Document(s ) Triglyceride 97 mg/dl Normal (applies Triglycerides, [facility] [Mass/volume] to non-numeric Serum Health in Serum or results) System Plasma Optimal = < 100 mg/dLBoderline High = 15 0 - 199 mg/dLHigh = 200 - 499 mg/dLVery High = > 500 mg/dL Cholesterol 169 mg/dl Normal (applies Cholesterol, Serum [facility] [Mass/volume] in to non-numeric Health S yste Serum or Plasma results) <200 mg/dL = [id number] - 239 md/dL = Borderline>240 mg/dL = High Risk Cholesterol in HDL 60.0 mg/dL Normal (applies HDL Cholestero l, [facility] [Mass/volume] in to non-numeric Serum Health S yste Serum or Plasma results) Cholesterol in LDL 89.6 mg/dL Normal (applies Low Density [facility] [Mass/volume] in to non-numeric Lipoprotein, Healt h System Serum or Plasma results) Calculated OPTIMAL: LESS THAN 100 mg/dLNEAR OPTIMAL : 100 - 129 mg/dLBODERLINE HIGH: 130 - 150 mg/dL Cholesterol in VLDL 19.4 Normal (applies to VLDL, Serum [facility] [Mass/volume] in Serum non-numeric results) System or Plasma CHDRisk 2.82 Normal (applies to CHD Risk [facility] non-numeric results) System ID Date Data Source [id number] 02/04/2019 04:16:09 PM EST [facility] Name Value Range Interpretation Description Data Sup porting Code Source(s) Document(s ) Leukocytes 7.8 Normal (applies WBC Count [facility] [#/volume] in {10^3_uL to non-numeric Health Unspecified } results) System specimen by Automated count Erythrocytes 5.09 Normal (applies RBC Count [facility] [#/volume] in {10^6_uL to non-numeric Health Blood by } results) System Automated count Hemoglobin 14.9 Normal (applies Hemoglobin [facility] [Mass/volume] in {gm/dL} to non-numeric Health Blood results) System Hematocrit 44.9 % Normal (applies Hematocrit [facility] [Volume to non-numeric Health Fraction] of results) System Blood Erythrocyte mean 88.2 fl Normal (applies MCV [facility] corpuscular to non-numeric Health volume [Entitic results) System volume] by Automated count Erythrocyte mean 29.3 pg Normal (applies MCH [facility] corpuscular to non-numeric Health hemoglobin results) System [Entitic mass] by Automated count Erythrocyte mean 33.2 Normal (applies MCHC [facility] corpuscular {gm/dL} to non-numeric Health hemoglobin results) System concentration [Mass/volume] by Automated count Erythrocyte 14.4 % Normal (applies RDW-CV [facility] distribution to non-numeric Health width [Entitic results) System volume] by Automated count Platelets 324 Normal (applies Platelet [facility] [#/volume] in {10^3_uL to non-numeric Count Health Plasma by } results) System Automated count Platelet mean 10.2 fl Normal (applies MPV [facility] volume [Entitic to non-numeric Health volume] in Blood results) System by Automated count Monocytes 0.5 Normal (applies Monocyte # [facility] [#/volume] in {10^3_uL to non-numeric Health Blood by Manual } results) System count Eosinophils 0.22 Normal (applies Eosinophil # [facility] [#/volume] in {10^3_uL to non-numeric Health Blood } results) System Neutrophils 4.6 Normal (applies Neutrophil # [facility] [#/volume] in {10^3_uL to non-numeric Health Body fluid } results) System Basophils 0.02 Normal (applies Basophil # [facility] [#/volume] in {10^3_uL to non-numeric Health Blood by } results) System Automated count Lymphocyte 2.4 Normal (applies Lymphocyte # [facility] percent {10^3_uL to non-numeric Health differential } results) System count (procedure) Neutrophils/100 59.3 % Normal (applies Neutrophil % [facility] savi leukocytes in to non-numeric Health Blood by results) System Automated count Monocytes/100 6.3 % Normal (applies Monocyte % [facility] leukocytes in to non-numeric [facility] Blood results) System Eosinophils/100 2.8 % Normal (applies Eosinophil % [facility] leukocytes in to non-numeric Health Unspecified results) System specimen Basophils/100 0.3 % Normal (applies Basophil % [facility] leukocytes in to non-numeric [facility] Unspecified results) System specimen by Manual count Lymphocytes 31.3 % Normal (applies Lymphocyte % [facility] [#/volume] in to non-numeric Health Blood by results) System Automated count ID Date Data Source [id number] 02/04/2019 04:16:09 PM EST [facility] Name Value Range Interpretation Description Data Sup porting Code Source(s) Document(s ) Sodium 140 Normal (applies Sodium, Serum [facility] [Moles/volume] mmol/L to non-numeric Health in Serum or results) System Plasma Potassium 4.1 Normal (applies Potassium, [facility] [Mass/volume] mmol/L to non-numeric Serum Health in Serum or results) System Plasma Chloride 107 Normal (applies Chloride, [facility] [Moles/volume] mmol/L to non-numeric Serum Health in Serum or results) System Plasma Carbon dioxide, 24.0 Normal (applies CO2, Serum [facility] total mmol/L to non-numeric Health [Moles/volume] results) System in Serum or Plasma TotalProtein 7.0 Normal (applies Total Protein [facility] mg/dl to non-numeric Health results) System Glucose 86 mg/dL Normal (applies Glucose, Serum [facility] [Mass/volume] to non-numeric Health in Serum or results) System Plasma ok Urea nitrogen 9 mg/dl Normal (applies Blood Urea [facility] [Mass/volume] in Serum to non-numeric Nitrogen, [facility] System or Plasma results) Creatinine 0.80 mg/dl Normal (applies Creatinine, [facility] [Mass/volume] in Serum to non-numeric Serum [facility] System or Plasma results) Alkaline phosphatase 113 {IU/L} Normal (applies Alkaline [facility] isoenzymes [Enzymatic to non-numeric Phosphatase, Health System activity/volume] in results) Serum Serum or Plasma by Heat stability Bilirubin.total 0.5 mg/dl Normal (applies Bilirubin, Serum [facility] [Mass/volume] in Serum to non-numeric Total [facility] System or Plasma results) DirectBilirubin 0.2 mg/dl Normal (applies Direct Bilirubin [facility] to non-numeric [facility] System results) Aspartate 14 {IU/L} Normal (applies Aspartate [facility] aminotransferase to non-numeric Transaminase, [facility] System [Enzymatic results) Serum activity/volume] in Serum or Plasma by With P-5'-P Albumin [Mass/volume] 4.1 {gm/dl} Normal (applies Albumin, S barrie [facility] in Serum or Plasma to non-numeric Health System results) I.Phosphorus 3.1 mg/dl Normal (applies I. Phosphorus [facility] to non-numeric [facility] System results) Alanine 14 {IU/L} Normal (applies Alanine [facility] aminotransferase to non-numeric Aminotransferase H ealth System [Enzymatic results) , Serum activity/volume] in Serum or Plasma Calcium [Mass/volume] 10.2 mg/dl Normal (applies Calcium, To brandon [facility] in Serum or Plasma to non-numeric Serum Health System results) A/GRatio 1.41 Normal (applies A/G Ratio [facility] to non-numeric Health System results) Urate [Mass/volume] in 5.2 mg/dl Normal (applies Uric Acid, Serum [facility] Serum or Plasma to non-numeric Health Sy stem results) Anion gap in Serum or 9.00 mmol/L Normal (applies Anion Gap [facility] Plasma to non-numeric Health System results) Glomerular filtration 76.18 Normal (applies GFR [facility] rate/1.73 sq to non-numeric Health Syste m M.predicted [Volume results) Rate/Area] in Serum or Plasma by Creatinine-based formula (CKD-EPI) eGFR will provide clinicians with a more accurate indicator of renal function then the serum creatinine. The eGFR is automa tically calculated from an empiric formula (endorsed by the [employer]) which incorporates age, sex, and race.Clinicians may notice surprisingly low GFR's with serum creatinine valueswithin normal range- particularly in elderly wo men (with low muscle mass).In the hospital setting, the eGFR should add an element of safety in drug dosing, in assessing the risk of IV contrast administration, and in assessing vascular risk.The NKF staging system is as follows:Normal: eGFR >90 with no kidney markersStage 1: eGFR >90 with kidney markers*Stage 2: eGFR 60- 89Stage 3: eGFR 30-59Stage 4: eGFR 15-29Stage 5: eGFR <15 (usually requir ing dialysis)*Markers include: Proteinuria, Hematuria, abnormal imaging-studies, or other blood or urine test abnormalities ID Date Data Source [id number] 02/04/2019 04:16:09 PM EST [facility] Name Value Range Interpretation Description Data Sup porting Code Source(s) Document(s ) TroponinIQuantitative 0.01 Normal (applies Troponin I [facility] ng/ml to non-numeric Quantitative Health results) System ID Date Data Source [id number] 02/04/2019 04:16:09 PM EST [facility] Name Value Range Interpretation Description Data Sup porting Code Source(s) Document(s ) Triglyceride 69 mg/dl Normal (applies Triglycerides, [facility] [Mass/volume] to non-numeric Serum Health in Serum or results) System Plasma Optimal = < 100 mg/dLBoderline High = 15 0 - 199 mg/dLHigh = 200 - 499 mg/dLVery High = > 500 mg/dL Cholesterol 176 mg/dl Normal (applies Cholesterol, Serum [facility] [Mass/volume] in to non-numeric Health S yste Serum or Plasma results) <200 mg/dL = [id number] - 239 md/dL = Borderline>240 mg/dL = High Risk Cholesterol in HDL 59.0 mg/dL Normal (applies HDL Cholestero l, [facility] [Mass/volume] in to non-numeric Serum Health S yste Serum or Plasma results) Cholesterol in LDL 103.2 mg/dL Normal (applies Low Density [facility] [Mass/volume] in to non-numeric Lipoprotein, Healt h System Serum or Plasma results) Calculated OPTIMAL: LESS THAN 100 mg/dLNEAR OPTIMAL : 100 - 129 mg/dLBODERLINE HIGH: 130 - 150 mg/dL Cholesterol in VLDL 13.8 Normal (applies to VLDL, Serum [facility] [Mass/volume] in Serum non-numeric results) System or Plasma CHDRisk 2.98 Normal (applies to CHD Risk [facility] non-numeric results) System ID Date Data Source [id number] 02/04/2019 04:16:09 PM EST [facility] Name Value Range Interpretation Code Description Data Nany rce(s) Supporting Document(s ) HbA1C 5.3 % Normal (applies to HbA1C [facility] non-numeric results) System ID Date Data Source [id number] 02/04/2019 04:16:09 PM EST [facility] Name Value Range Interpretation Description Data Sup porting Code Source(s) Document(s ) TroponinIQuantitative 0.01 Normal (applies Troponin I [facility] ng/ml to non-numeric Quantitative Health results) System ID Date Data Source [id number] 02/04/2019 04:16:09 PM EST [facility] Name Value Range Interpretation Description Data Sup porting Code Source(s) Document(s ) Leukocytes 7.4 Normal (applies WBC Count [facility] [#/volume] in {10^3_uL to non-numeric Health Unspecified } results) System specimen by Automated count Erythrocytes 5.10 Normal (applies RBC Count [facility] [#/volume] in {10^6_uL to non-numeric Health Blood by } results) System Automated count Hemoglobin 15.1 Normal (applies Hemoglobin [facility] [Mass/volume] in {gm/dL} to non-numeric Health Blood results) System Hematocrit 45.2 % Normal (applies Hematocrit [facility] [Volume to non-numeric Health Fraction] of results) System Blood Erythrocyte mean 88.6 fl Normal (applies MCV [facility] corpuscular to non-numeric Health volume [Entitic results) System volume] by Automated count Erythrocyte mean 29.6 pg Normal (applies MCH [facility] corpuscular to non-numeric Health hemoglobin results) System [Entitic mass] by Automated count Erythrocyte mean 33.4 Normal (applies MCHC [facility] corpuscular {gm/dL} to non-numeric Health hemoglobin results) System concentration [Mass/volume] by Automated count Erythrocyte 14.5 % Normal (applies RDW-CV [facility] distribution to non-numeric Health width [Entitic results) System volume] by Automated count Platelets 243 Normal (applies Platelet [facility] [#/volume] in {10^3_uL to non-numeric Count Health Plasma by } results) System Automated count Platelet mean 10.9 fl Above high normal MPV [facility] volume [Entitic [facility] volume] in Blood System by Automated count Monocytes 0.4 Normal (applies Monocyte # [facility] [#/volume] in {10^3_uL to non-numeric Health Blood by Manual } results) System count Eosinophils 0.18 Normal (applies Eosinophil # [facility] [#/volume] in {10^3_uL to non-numeric Health Blood } results) System Neutrophils 4.6 Normal (applies Neutrophil # [facility] [#/volume] in {10^3_uL to non-numeric Health Body fluid } results) System Basophils 0.02 Normal (applies Basophil # [facility] [#/volume] in {10^3_uL to non-numeric Health Blood by } results) System Automated count Lymphocyte 2.2 Normal (applies Lymphocyte # [facility] percent {10^3_uL to non-numeric Health differential } results) System count (procedure) Neutrophils/100 61.8 % Normal (applies Neutrophil % [facility] savi leukocytes in to non-numeric Health Blood by results) System Automated count Monocytes/100 6.0 % Normal (applies Monocyte % [facility] leukocytes in to non-numeric Health Blood results) System Eosinophils/100 2.4 % Normal (applies Eosinophil % [facility] savi leukocytes in to non-numeric Health Unspecified results) System specimen Basophils/100 0.3 % Normal (applies Basophil % [facility] leukocytes in to non-numeric Health Unspecified results) System specimen by Manual count Lymphocytes 29.5 % Normal (applies Lymphocyte % [facility] [#/volume] in to non-numeric Health Blood by results) System Automated count ID Date Data Source [id number] 02/04/2019 04:16:09 PM EST [facility] Name Value Range Interpretation Description Data Sup porting Code Source(s) Document(s ) Sodium 140 Normal (applies Sodium, Serum [facility] [Moles/volume] in mmol/L to non-numeric Health Serum or Plasma results) System Potassium 4.0 Normal (applies Potassium, [facility] [Mass/volume] in mmol/L to non-numeric Serum Health Serum or Plasma results) System Chloride 106 Normal (applies Chloride, [facility] [Moles/volume] in mmol/L to non-numeric Serum Health Serum or Plasma results) System Carbon dioxide, 21.0 Below low normal CO2, Serum [facility] total mmol/L [facility] [Moles/volume] in System Serum or Plasma TotalProtein 7.1 Normal (applies Total Protein [facility] mg/dl to non-numeric Health results) System Glucose 123 Above high Glucose, [facility] [Mass/volume] in mg/dL normal Serum Health Serum or Plasma System Urea nitrogen 12 Normal (applies Blood Urea [facility] [Mass/volume] in mg/dl to non-numeric Nitrogen, Health Serum or Plasma results) Serum System Creatinine 0.90 Normal (applies Creatinine, [facility] [Mass/volume] in mg/dl to non-numeric Serum Health Serum or Plasma results) System Alkaline 98 Normal (applies Alkaline [facility] phosphatase {IU/L} to non-numeric Phosphatase, Health isoenzymes results) Serum System [Enzymatic activity/volume] in Serum or Plasma by Heat stability Bilirubin.total 0.4 Normal (applies Bilirubin, [facility] [Mass/volume] in mg/dl to non-numeric Serum Total Health Serum or Plasma results) System DirectBilirubin 0.1 Normal (applies Direct [facility] mg/dl to non-numeric Bilirubin Health results) System Aspartate 14 Normal (applies Aspartate [facility] aminotransferase {IU/L} to non-numeric Transaminase, Heal th [Enzymatic results) Serum System activity/volume] in Serum or Plasma by With P-5'-P Albumin 3.8 Below low normal Albumin, [facility] [Mass/volume] in {gm/dl} Serum Health Serum or Plasma System I.Phosphorus 2.9 Normal (applies I. Phosphorus [facility] mg/dl to non-numeric Health results) System Alanine 13 Normal (applies Alanine [facility] aminotransferase {IU/L} to non-numeric Aminotransfer Heal th [Enzymatic results) ase, Serum System activity/volume] in Serum or Plasma Calcium 9.9 Normal (applies Calcium, [facility] [Mass/volume] in mg/dl to non-numeric Total Serum Health Serum or Plasma results) System A/GRatio 1.15 Normal (applies A/G Ratio [facility] to non-numeric Health results) System Urate 5.2 Normal (applies Uric Acid, [facility] [Mass/volume] in mg/dl to non-numeric Serum Health Serum or Plasma results) System Anion gap in Serum 13.00 Above high Anion Gap [facility] or Plasma mmol/L normal Health System Glomerular 66.49 Normal (applies GFR [facility] filtration to non-numeric Health rate/1.73 sq results) System M.predicted [Volume Rate/Area] in Serum or Plasma by Creatinine-based formula (CKD-EPI) eGFR will provide clinicians with a more accurate indicator of renal function then the serum creatinine. The eGFR is automa tically calculated from an empiric formula (endorsed by the [employer]) which incorporates age, sex, and race.Clinicians may notice surprisingly low GFR's with serum creatinine valueswithin normal range- particularly in elderly wo men (with low muscle mass).In the hospital setting, the eGFR should add an element of safety in drug dosing, in assessing the risk of IV contrast administration, and in assessing vascular risk.The NKF staging system is as follows:Normal: eGFR >90 with no kidney markersStage 1: eGFR >90 with kidney markers*Stage 2: eGFR 60- 89Stage 3: eGFR 30-59Stage 4: eGFR 15-29Stage 5: eGFR <15 (usually requir ing dialysis)*Markers include: Proteinuria, Hematuria, abnormal imaging-studies, or other blood or urine test abnormalities ID Date Data Source [id number] 02/04/2019 04:16:09 PM EST [facility] Name Value Range Interpretation Description Data Sup porting Code Source(s) Document(s ) TroponinIQuantitative 0.01 Normal (applies Troponin I [facility] ng/ml to non-numeric Quantitative Health results) System ID Date Data Source [id number] 02/04/2019 04:16:09 PM EST [facility] Name Value Range Interpretation Description Data Sup porting Code Source(s) Document(s ) Leukocytes 8.5 Normal (applies WBC Count [facility] [#/volume] in {10^3_uL to non-numeric Health Unspecified } results) System specimen by Automated count Erythrocytes 5.01 Normal (applies RBC Count [facility] [#/volume] in {10^6_uL to non-numeric Health Blood by } results) System Automated count Hemoglobin 14.8 Normal (applies Hemoglobin [facility] [Mass/volume] in {gm/dL} to non-numeric Health Blood results) System Hematocrit 44.6 % Normal (applies Hematocrit [facility] [Volume to non-numeric Health Fraction] of results) System Blood Erythrocyte mean 89.0 fl Normal (applies MCV [facility] corpuscular to non-numeric Health volume [Entitic results) System volume] by Automated count Erythrocyte mean 29.5 pg Normal (applies MCH [facility] corpuscular to non-numeric Health hemoglobin results) System [Entitic mass] by Automated count Erythrocyte mean 33.2 Normal (applies MCHC [facility] corpuscular {gm/dL} to non-numeric Health hemoglobin results) System concentration [Mass/volume] by Automated count Erythrocyte 14.6 % Above high normal RDW-CV [facility] distribution Health width [Entitic System volume] by Automated count Platelets 347 Normal (applies Platelet [facility] [#/volume] in {10^3_uL to non-numeric Count Health Plasma by } results) System Automated count Platelet mean 11.0 fl Above high normal MPV [facility] volume [[facility] volume] in Blood System by Automated count Monocytes 0.5 Normal (applies Monocyte # [facility] [#/volume] in {10^3_uL to non-numeric Health Blood by Manual } results) System count Eosinophils 0.07 Normal (applies Eosinophil # [facility] [#/volume] in {10^3_uL to non-numeric Health Blood } results) System Neutrophils 5.2 Normal (applies Neutrophil # [facility] [#/volume] in {10^3_uL to non-numeric Health Body fluid } results) System Basophils 0.02 Normal (applies Basophil # [facility] [#/volume] in {10^3_uL to non-numeric Health Blood by } results) System Automated count Lymphocyte 2.8 Normal (applies Lymphocyte # [facility] percent {10^3_uL to non-numeric Health differential } results) System count (procedure) Neutrophils/100 60.6 % Normal (applies Neutrophil % [facility] leukocytes in to non-numeric Health Blood by results) System Automated count Monocytes/100 5.4 % Below low normal Monocyte % [facility] leukocytes in Health Blood System Eosinophils/100 0.8 % Below low normal Eosinophil % [facility] leukocytes in Health Unspecified System specimen Basophils/100 0.2 % Normal (applies Basophil % [facility] leukocytes in to non-numeric Health Unspecified results) System specimen by Manual count Lymphocytes 33.0 % Normal (applies Lymphocyte % [facility] [#/volume] in to non-numeric Health Blood by results) System Automated count ID Date Data Source [id number] 02/04/2019 04:16:09 PM EST [facility] System Name Value Range Interpretation Description Data Sup porting Code Source(s) Document(s ) Sodium 142 mmol/L Normal (applies Sodium, [facility] [Moles/volume] in to non-numeric Serum Health Serum or Plasma results) System Potassium Cancelled Potassium, [facility] [Mass/volume] in HEMOLYZED Serum Health Serum or Plasma SPECIMEN System Chloride 108 mmol/L Above high Chloride, [facility] [Moles/volume] in normal Serum Health Serum or Plasma System Carbon dioxide, 22.0 mmol/L Normal (applies CO2, Serum [facility] savi total to non-numeric Health [Moles/volume] in results) System Serum or Plasma TotalProtein 8.0 mg/dl Normal (applies Total [facility] to non-numeric Protein Health results) System Glucose 94 mg/dL Normal (applies Glucose, [facility] [Mass/volume] in to non-numeric Serum Health Serum or Plasma results) System Urea nitrogen 14 mg/dl Normal (applies Blood Urea [facility] [Mass/volume] in to non-numeric Nitrogen, Health Serum or Plasma results) Serum System Creatinine 1.30 mg/dl Above high Creatinine, [facility] [Mass/volume] in normal Serum Health Serum or Plasma System Alkaline 89 {IU/L} Normal (applies Alkaline [facility] phosphatase to non-numeric Phosphatase, Health isoenzymes results) Serum System [Enzymatic activity/volume] in Serum or Plasma by Heat stability Bilirubin.total 0.1 mg/dl Below low Bilirubin, [facility] [Mass/volume] in normal Serum Total Health Serum or Plasma System DirectBilirubin 0.1 mg/dl Normal (applies Direct [facility] to non-numeric Bilirubin Health results) System Aspartate 38 {IU/L} Normal (applies Aspartate [facility] aminotransferase to non-numeric Transaminase Healt h [Enzymatic results) , Serum System activity/volume] in Serum or Plasma by With P-5'-P Albumin 4.2 {gm/dl} Normal (applies Albumin, [facility] [Mass/volume] in to non-numeric Serum Health Serum or Plasma results) System I.Phosphorus 4.3 mg/dl Normal (applies I. [facility] to non-numeric Phosphorus Health results) System Alanine 18 {IU/L} Normal (applies Alanine [facility] aminotransferase to non-numeric Aminotransfe Healt h [Enzymatic results) rase, Serum System activity/volume] in Serum or Plasma Calcium 10.0 mg/dl Normal (applies Calcium, [facility] [Mass/volume] in to non-numeric Total Serum Health Serum or Plasma results) System A/GRatio 1.11 Normal (applies A/G Ratio [facility] to non-numeric Health results) System Urate 6.2 mg/dl Normal (applies Uric Acid, [facility] [Mass/volume] in to non-numeric Serum Health Serum or Plasma results) System Anion gap in Serum 12.00 Normal (applies Anion Gap Jono savi or Plasma mmol/L to non-numeric Health results) System Glomerular 43.48 Normal (applies GFR [facility] filtration to non-numeric Health rate/1.73 sq results) System M.predicted [Volume Rate/Area] in Serum or Plasma by Creatinine-based formula (CKD-EPI) eGFR will provide clinicians with a more accurate indicator of renal function then the serum creatinine. The eGFR is automa tically calculated from an empiric formula (endorsed by the [employer] ion) which incorporates age, sex, and race.Clinicians may notice surprisingly low GFR's with serum creatinine valueswithin normal range- particularly in elderly wo men (with low muscle mass).In the hospital setting, the eGFR should add an element of safety in drug dosing, in assessing the risk of IV contrast administration, and in assessing vascular risk.The NKF staging system is as follows:Normal: eGFR >90 with no kidney markersStage 1: eGFR >90 with kidney markers*Stage 2: eGFR 60- 89Stage 3: eGFR 30-59Stage 4: eGFR 15-29Stage 5: eGFR <15 (usually requir ing dialysis)*Markers include: Proteinuria, Hematuria, abnormal imaging-studies, or other blood or urine test abnormalities ID Date Data Source [id number] 02/04/2019 04:16:09 PM EST [facility] System Name Value Range Interpretation Description Data Sup porting Code Source(s) Document(s ) Phenytoin < 0.50 Below low normal Phenytoin [facility] [Mass/volume] Level, Serum Health System in Serum or Plasma ID Date Data Source [id number] 02/04/2019 04:16:09 PM EST [facility] System Name Value Range Interpretation Description Data Sup porting Code Source(s) Document(s ) Prothrombintim 10.60 Normal (applies Prothrombin [facility](PT) {seconds to non-numeric time (PT) Health System } results) INR in Blood 1.02 Normal (applies INR Result [facility] by Coagulation {Ratio} to non-numeric Health Sys tem assay results) Normal = 0.7-1.1Therapeutic = 2.0-3.0Mec hanical Heart = 3.0-4.5 ID Date Data Source [id number] 02/04/2019 04:16:09 PM EST [facility] System Name Value Range Interpretation Description Data Sup porting Code Source(s) Document(s ) Amphetamine Negative Normal (applies Amphetamine [facility] [Mass/volume] to non-numeric Level, Urine Health in Urine results) System Cut-off = 1000 ng/mL Barbiturates Positive Abnormal (applies Barbiturate [facility] [Mass/volume] in to non-numeric Screen, Urine Heal th System Urine by Screen results) method Cut-off = 200 ng/mL Benzodiazepines Negative Normal (applies Benzodiazepines, [facility] [Mass/volume] in to non-numeric Urine Health S ystem Urine results) Cut-off = 300 ng/mL Cocaine Negative Normal (applies Cocaine [facility] metabolites.other to non-numeric Metabolite Health System [Mass/volume] in Urine results) Screen, Urine Cut-off = 300 ng/mL Methadone Negative Normal (applies to Methadone Level, [facility] [Mass/volume] in non-numeric Urine System Urine results) Cut-off = 300 ng/mL [id number],Urine Negative Normal (applies to Opiate 300, [facility] non-numeric results) Urine System Cut-off = 300 ng/mL Phencyclidine Negative Normal (applies Phencyclidine, Urine [facility] [Mass/volume] in to non-numeric Health S ystem Urine results) Cut-off = 25 ng/mL THC Negative Normal (applies to non-numeric resul ts) THC [facility] Cut-off = 50 ng/mL ID Date Data Source [id number] 02/04/2019 04:16:09 PM EST [facility] System Name Value Range Interpretation Description Data Sup porting Code Source(s) Document(s ) Phenobarbital 53.0 Above upper PHENobarbital [facility] [Mass/volume] in ug/ml panic limits Level, Serum Health Serum or Plasma System Result Reporting|Telephone|lico| 03/08/19 12 at 11:17 AMCalled to:Merry Name:Parvin by:lico 03/08/2011 / 11:16 AM ID Date Data Source [id number] 02/04/2019 04:16:09 PM EST [facility] System Name Value Range Interpretation Description Data Sup porting Code Source(s) Document(s ) Leukocytes 6.5 Normal (applies WBC Count [facility] [#/volume] in {10\\S\\3_ to non-numeric Health Unspecified uL} results) System specimen by Automated count Erythrocytes 5.10 Normal (applies RBC Count [facility] [#/volume] in {10\\S\\6_ to non-numeric Health Blood by uL} results) System Automated count Hemoglobin 12.3 Normal (applies Hemoglobin, [facility] [Mass/volume] in {gm/dL} to non-numeric Whole Blood Health Blood results) System Hematocrit 39.4 % Normal (applies Hematocrit, [facility] [Volume to non-numeric Whole Blood Health Fraction] of results) System Blood Erythrocyte mean 77.3 fl Below low normal MCV [facility] corpuscular Health volume [[facility] System volume] by Automated count Erythrocyte mean 24.1 pg Below low normal MCH [facility] corpuscular Health hemoglobin System [Entitic mass] by Automated count Erythrocyte mean 31.2 Below low normal MCHC [facility] corpuscular {gm/dL} Health hemoglobin System concentration [Mass/volume] by Automated count Erythrocyte 21.3 % Above high normal RDW [facility] distribution Health width [[facility] System volume] by Automated count Platelets 585 Above high normal Platelet [facility] [#/volume] in {10\\S\\3_ Count Health Plasma by uL} System Automated count Platelet mean 9.9 fl Normal (applies MPV [facility] volume [Entitic to non-numeric Health volume] in Blood results) System by Automated count Monocytes 0.4 Normal (applies Monocyte [facility] [#/volume] in {10\\S\\3_ to non-numeric Count Health Blood by Manual uL} results) System count Eosinophils 0.1 Normal (applies Eosinophil [facility] [#/volume] in {10\\S\\3} to non-numeric Count Blood Health Blood results) System Neutrophils 3.5 Normal (applies Absolute [facility] [#/volume] in {10\\S\\3_ to non-numeric Neutrophil Health Body fluid uL} results) Count System Basophils 0.03 Normal (applies Basophil [facility] [#/volume] in {10\\S\\3_ to non-numeric Count Health Blood by uL} results) System Automated count Lymphocyte 2.5 Normal (applies Lymphocyte [facility] percent {10\\S\\3_ to non-numeric Absolute Health differential uL} results) System count (procedure) Neutrophils/100 53.1 % Normal (applies Neutrophil % [facility] leukocytes in to non-numeric Health Blood by results) System Automated count Monocytes/100 7 % Normal (applies Monocyte % [facility] leukocytes in to non-numeric Health Blood results) System Eosinophils/100 2 % Normal (applies Eosinophil % [facility] leukocytes in to non-numeric Health Unspecified results) System specimen Basophils/100 1 % Normal (applies Basophil % [facility] leukocytes in to non-numeric Health Unspecified results) System specimen by Manual count Lymphocytes 38 % Normal (applies Lymphocyte % [facility] [#/volume] in to non-numeric Health Blood by results) System Automated count ID Date Data Source [id number] 02/04/2019 04:16:09 PM EST [facility] System Name Value Range Interpretation Description Data Sup porting Code Source(s) Document(s ) Sodium 140 Normal (applies Sodium, Serum [facility] [Moles/volume mmol/L to non-numeric Health Syst em ] in Serum or results) Plasma Potassium 4.5 Normal (applies Potassium, [facility] [Mass/volume] mmol/L to non-numeric Serum Health Syst em in Serum or results) Plasma Chloride 108 Above high normal Chloride, [facility] [Moles/volume mmol/L Serum Health System ] in Serum or Plasma Carbon 21.0 Below low normal CO2, Serum [facility] dioxide, mmol/L Health System total [Moles/volume ] in Serum or Plasma Glucose 72 mg/dL Normal (applies Glucose, Serum [facility] [Mass/volume] to non-numeric Health Syst em in Serum or results) Plasma Urea nitrogen 11 mg/dl Normal (applies Blood Urea [facility] [Mass/volume] to non-numeric Nitrogen, Health Syst em in Serum or results) Serum Plasma Creatinine 0.80 Normal (applies Creatinine, [facility] [Mass/volume] mg/dl to non-numeric Serum Health Syst em in Serum or results) Plasma Calcium 9.7 Normal (applies Calcium, Total [facility] [Mass/volume] mg/dl to non-numeric Serum Health Syst em in Serum or results) Plasma Anion gap in 11.00 Normal (applies Anion Gap [facility] Serum or mmol/L to non-numeric Health System Plasma results) ID Date Data Source [id number] 02/04/2019 04:16:09 PM EST [facility] System Name Value Range Interpretation Description Data Sup porting Code Source(s) Document(s ) AlcoholE non-detected Normal (applies to Alcohol Ethyl, [facility] thyl,Blo None non-numeric Blood Health System od Detected results) ID Date Data Source [id number] 02/04/2019 04:16:09 PM EST [facility] System Name Value Range Interpretation Description Data Sup porting Code Source(s) Document(s ) Amphetamine Negative Normal (applies Amphetamine [facility] [Mass/volume] to non-numeric Level, Urine Health in Urine results) System Cut-off = 1000 ng/mL Barbiturates Positive Abnormal (applies Barbiturate [facility] [Mass/volume] in to non-numeric Screen, Urine Heal th System Urine by Screen results) method Cut-off = 200 ng/mL Benzodiazepines Negative Normal (applies Benzodiazepines, [facility] [Mass/volume] in to non-numeric Urine Health S yste Urine results) Cut-off = 200 ng/mL Cocaine Positive Abnormal (applies Cocaine [facility] metabolites.other to non-numeric Metabolite Health System [Mass/volume] in Urine results) Screen, Urine Cut-off = 300 ng/mL Methadone Negative Normal (applies to Methadone Level, [facility] [Mass/volume] in non-numeric Urine System Urine results) Cut-off = 300 ng/mL [id number],Urine Positive Abnormal (applies to Opiate 300, [facility] non-numeric results) Urine System Cut-off = 300 ng/mL Phencyclidine Negative Normal (applies Phencyclidine, Urine [facility] [Mass/volume] in to non-numeric Health S yste Urine results) Cut-off = 25 ng/mL THC Negative Normal (applies to non-numeric resul ts) THC [facility] System Cut-off = 50 ng/mL ID Date Data Source [id number] 02/04/2019 04:16:09 PM EST [facility] System Name Value Range Interpretation Description Data Sup porting Code Source(s) Document(s ) Leukocytes 6.6 Normal (applies WBC Count [facility] [#/volume] in {10\\S\\3_ to non-numeric Health Unspecified uL} results) System specimen by Automated count Erythrocytes 4.51 Normal (applies RBC Count [facility] [#/volume] in {10\\S\\6_ to non-numeric Health Blood by uL} results) System Automated count Hemoglobin 10.9 Below low normal Hemoglobin, [facility] [Mass/volume] in {gm/dL} Whole Blood Health Blood System Hematocrit 34.3 % Below low normal Hematocrit, [facility] [Volume Whole Blood Health Fraction] of System Blood Erythrocyte mean 76.1 fl Below low normal MCV [facility] corpuscular Health volume [Ent[facility] System volume] by Automated count Erythrocyte mean 24.2 pg Below low normal MCH [facility] corpuscular Health hemoglobin System [Entitic mass] by Automated count Erythrocyte mean 31.8 Below low normal MCHC [facility] corpuscular {gm/dL} Health hemoglobin System concentration [Mass/volume] by Automated count Erythrocyte 19.1 % Above high normal RDW [facility] distribution Health width [Entitic System volume] by Automated count Platelets 377 Normal (applies Platelet [facility] [#/volume] in {10\\S\\3_ to non-numeric Count Health Plasma by uL} results) System Automated count Platelet mean 9.3 fl Normal (applies MPV [facility] volume [Entitic to non-numeric Health volume] in Blood results) System by Automated count Monocytes 0.5 Normal (applies Monocyte [facility] [#/volume] in {10\\S\\3_ to non-numeric Count Health Blood by Manual uL} results) System count Eosinophils 0.1 Normal (applies Eosinophil [facility] [#/volume] in {10\\S\\3} to non-numeric Count Blood Health Blood results) System Basophils 0.03 Normal (applies Basophil [facility] [#/volume] in {10\\S\\3_ to non-numeric Count Health Blood by uL} results) System Automated count Neutrophils 3.7 Normal (applies Absolute [facility] [#/volume] in {10\\S\\3_ to non-numeric Neutrophil Health Body fluid uL} results) Count System Lymphocyte 2.3 Normal (applies Lymphocyte [facility] percent {10\\S\\3_ to non-numeric Absolute Health differential uL} results) System count (procedure) Neutrophils/100 56.2 % Normal (applies Neutrophil % [facility] leukocytes in to non-numeric Health Blood by results) System Automated count Monocytes/100 8 % Normal (applies Monocyte % [facility] leukocytes in to non-numeric Health Blood results) System Eosinophils/100 1 % Normal (applies Eosinophil % [place] leukocytes in to non-numeric Health Unspecified results) System specimen Basophils/100 1 % Normal (applies Basophil % [facility] leukocytes in to non-numeric Health Unspecified results) System specimen by Manual count Lymphocytes 34 % Normal (applies Lymphocyte % [facility] [#/volume] in to non-numeric Health Blood by results) System Automated count ID Date Data Source [id number] 02/04/2019 04:16:09 PM EST [facility] System Name Value Range Interpretation Description Data Sup porting Code Source(s) Document(s ) hCGQuantitative Less than Normal (applies hCG [facility] 1.20 Negative to non-numeric Quantitative Health = <5 results) System mIU/mLAPPROXI MATE GEST. AGE APPROXIMATE HCG mIU/ML 0.2 - 1 week 5 - 50 1 - 2 weeks 50 - 500 2 - 3 weeks 100 - 5,000 3 - 4 weeks 500 - 10,000 4 - 5 weeks 1,000 - 50,000 5 - 6 weeks 10,000 - 100,000 6 - 8 weeks 15,000 - 200,000 8 - 12 weeks 10,000 - 100,000HCG levels between 5-25 mIU/mL may be indicative of early . Correlation with other clinical findings and/or repeat of HCG quantitative testing recommened. ID Date Data Source [id number] 02/04/2019 04:16:09 PM EST [facility] System Name Value Range Interpretation Description Data Sup porting Code Source(s) Document(s ) Sodium 136 Below low normal Sodium, Serum [facility] [Moles/volume mmol/L Health System ] in Serum or Plasma Potassium 4.1 Normal (applies Potassium, [facility] [Mass/volume] mmol/L to non-numeric Serum Health Syst em in Serum or results) Plasma Chloride 109 Above high normal Chloride, [facility] [Moles/volume mmol/L Serum Health System ] in Serum or Plasma Carbon 21.0 Below low normal CO2, Serum [facility] dioxide, mmol/L Health System total [Moles/volume ] in Serum or Plasma Glucose 105 Normal (applies Glucose, Serum [facility] [Mass/volume] mg/dL to non-numeric Health Syst em in Serum or results) Plasma Urea nitrogen 7 mg/dl Normal (applies Blood Urea [facility] [Mass/volume] to non-numeric Nitrogen, Health Syst em in Serum or results) Serum Plasma Creatinine 0.70 Normal (applies Creatinine, [facility] [Mass/volume] mg/dl to non-numeric Serum Health Syst em in Serum or results) Plasma Calcium 8.5 Normal (applies Calcium, Total [facility] [Mass/volume] mg/dl to non-numeric Serum Health Syst em in Serum or results) Plasma Anion gap in 6.00 Below low normal Anion Gap [facility] Serum or mmol/L Health System Plasma ID Date Data Source [id number] 02/04/2019 04:16:09 PM EST [facility] System RN Collect Name Value Range Interpretation Description Data Sup porting Code Source(s) Document(s ) Color YELLOW Normal (applies Color [facility] to non-numeric Health results) System Appearance of CLEAR Normal (applies Urine [facility] Urine to non-numeric Appearance Health results) System Specific 1.015 Normal (applies Urine [facility] gravity of to non-numeric Specific Health Urine results) [place] System pH.. 7.5 Normal (applies pH.. [facility] {pH_units} to non-numeric Health results) System Glucose,UA NEGATIVE Normal (applies Glucose, UA [facility] to non-numeric Health results) System Negative Protein NEGATIVE Normal (applies Protein [facility] [Mass/volume] in to non-numeric Health S ystem Serum or Plasma results) BilirubinUrine NEGATIVE Normal (applies Bilirubin Urine [facility] to non-numeric Health System results) Urobilinogen 0.20 {eu/dL} Normal (applies Urobilinogen UA [facility] [Mass/volume] in to non-numeric Health S ystem Urine results) Ketones NEGATIVE Normal (applies Ketones UA [facility] [Mass/volume] in to non-numeric Health S te Urine results) Negative Nitrate+Nitrite NEGATIVE Normal (applies to Nitrite [facility]i Health [Mass/volume] in non-numeric results) Sy stem Unspecified specimen Negative Leukocyte esterase NEGATIVE Normal (applies Leukocyte Shawna ase [facility] [Units/volume] in to non-numeric Concentration Hea lt System Urine results) Negative Leukocytes 0-2 Normal (applies to White Blood Cells [facility] [#/volume] in non-numeric System Unspecified specimen results) by Automated count RedBloodCells 0-2 Normal (applies [facility] non-numeric System results) Epithelial cells FEW Normal (applies to Epithelial Krystal ls [facility] [Presence] in non-numeric System Unspecified specimen results) by Wet preparation Bacteria [Presence] NONE Normal (applies to Bacteria [facility] in Unspecified non-numeric System specimen results) UrineBlood NEGATIVE Abnormal (applies Urine Blood [facility] to non-numeric System results) ID Date Data Source [id number] 02/04/2019 04:16:09 PM EST [facility] System Name Value Range Interpretation Description Data Sup porting Code Source(s) Document(s ) Amphetamine Negative Normal (applies Amphetamine [facility] [Mass/volume] to non-numeric Level, Urine Health in Urine results) System Cut-off = 1000 ng/mL Barbiturates Negative Normal (applies to Barbiturate [facility] [Mass/volume] in non-numeric Screen, Urine Health System Urine by Screen results) method Cut-off = 200 ng/mL Benzodiazepines Negative Normal (applies Benzodiazepines, [facility] [Mass/volume] in to non-numeric Urine Health S te Urine results) Cut-off = 200 ng/mL Cocaine Positive Abnormal (applies Cocaine [facility] metabolites.other to non-numeric Metabolite Health System [Mass/volume] in Urine results) Screen, Urine Cut-off = 300 ng/mL Methadone Negative Normal (applies to Methadone Level, [facility] [Mass/volume] in non-numeric Urine System Urine results) Cut-off = 300 ng/mL [id number],Urine Positive Abnormal (applies to Opiate 300, [facility] non-numeric results) Urine System Cut-off = 300 ng/mL Phencyclidine Negative Normal (applies Phencyclidine, Urine [facility] [Mass/volume] in to non-numeric Health S ystem Urine results) Cut-off = 25 ng/mL THC Negative Normal (applies to non-numeric resul ts) THC [facility] System Cut-off = 50 ng/mL ID Date Data Source [id number] 02/04/2019 04:16:09 PM EST [facility] System Name Value Range Interpretation Description Data Source(s ) Supporting Code Document(s ) Cytology See report Normal (applies to Cytology,Thinpr [facility] ,Thinpre non-numeric ep Pap Health System pPap results) ID Date Data Source [id number] 02/04/2019 04:16:09 PM EST [facility] System Name Value Range Interpretation Description Data Sup porting Code Source(s) Document(s ) Human papilloma See Normal (applies Human [facility] virus DNA report to non-numeric Papilloma Health [Presence] in results) Virus DNA System Unspecified Detection specimen by Probe and signal amplification method ID Date Data Source [id number] 02/04/2019 04:16:09 PM EST [facility] System Name Value Range Interpretation Description Data Sup porting Code Source(s) Document(s ) Chlamydi NOT DETECTED Normal (applies to Chlamydia, DNA [facility] a,DNAPro non-numeric Probe Health System be results) ID Date Data Source [id number] 02/04/2019 04:16:09 PM EST [facility] System Name Value Range Interpretation Description Data Sup porting Code Source(s) Document(s ) Leukocytes 7.6 Normal (applies WBC Count [facility] [#/volume] in {10\\S\\3_ to non-numeric Health Unspecified uL} results) System specimen by Automated count Erythrocytes 4.75 Normal (applies RBC Count [facility] [#/volume] in {10\\S\\6_ to non-numeric Health Blood by uL} results) System Automated count Hemoglobin 11.4 Below low normal Hemoglobin, [facility] [Mass/volume] in {gm/dL} Whole Blood Health Blood System Hematocrit 36.1 % Normal (applies Hematocrit, [facility] [Volume to non-numeric Whole Blood Health Fraction] of results) System Blood Erythrocyte mean 76.0 fl Below low normal MCV [facility] corpuscular Health volume [Entitic System volume] by Automated count Erythrocyte mean 24.0 pg Below low normal MCH [facility] corpuscular Health hemoglobin System [Entitic mass] by Automated count Erythrocyte mean 31.6 Below low normal MCHC [facility] corpuscular {gm/dL} Health hemoglobin System concentration [Mass/volume] by Automated count Erythrocyte 19.0 % Above high normal RDW [facility] distribution Health width [Entitic System volume] by Automated count Platelets 410 Above high normal Platelet [facility] [#/volume] in {10\\S\\3_ Count Health Plasma by uL} System Automated count Platelet mean 9.6 fl Normal (applies MPV [facility] volume [Entitic to non-numeric Health volume] in Blood results) System by Automated count Monocytes 0.4 Normal (applies Monocyte [facility] [#/volume] in {10\\S\\3_ to non-numeric Count Health Blood by Manual uL} results) System count Eosinophils 0.1 Normal (applies Eosinophil [facility] [#/volume] in {10\\S\\3} to non-numeric Count Blood Health Blood results) System Basophils 0.04 Normal (applies Basophil [facility] [#/volume] in {10\\S\\3_ to non-numeric Count Health Blood by uL} results) System Automated count Neutrophils 5.6 Normal (applies Absolute [facility] [#/volume] in {10\\S\\3_ to non-numeric Neutrophil Health Body fluid uL} results) Count System Lymphocyte 1.5 Normal (applies Lymphocyte [facility] percent {10\\S\\3_ to non-numeric Absolute Health differential uL} results) System count (procedure) Neutrophils/100 72.9 % Normal (applies Neutrophil % [facility] leukocytes in to non-numeric Health Blood by results) System Automated count Monocytes/100 5 % Below low normal Monocyte % [facility] leukocytes in Health Blood System Eosinophils/100 1 % Normal (applies Eosinophil % [facility] leukocytes in to non-numeric Health Unspecified results) System specimen Basophils/100 1 % Normal (applies Basophil % [facility] leukocytes in to non-numeric Health Unspecified results) System specimen by Manual count Lymphocytes 20 % Below low normal Lymphocyte % [facility] [#/volume] in Health Blood by System Automated count ID Date Data Source [id number] 02/04/2019 04:16:09 PM EST [facility] Name Value Range Interpretation Description Data Sup porting Code Source(s) Document(s ) Sodium 137 Normal (applies Sodium, Serum [facility] [Moles/volume mmol/L to non-numeric Health Syst em ] in Serum or results) Plasma Potassium 4.0 Normal (applies Potassium, [facility] [Mass/volume] mmol/L to non-numeric Serum Health Syst em in Serum or results) Plasma Chloride 107 Normal (applies Chloride, [facility] [Moles/volume mmol/L to non-numeric Serum Health Syst em ] in Serum or results) Plasma Carbon 24.0 Normal (applies CO2, Serum [facility] dioxide, mmol/L to non-numeric Health System total results) [Moles/volume ] in Serum or Plasma Glucose 111 Above high normal Glucose, Serum [facility] [Mass/volume] mg/dL Health System in Serum or Plasma Urea nitrogen 7 mg/dl Normal (applies Blood Urea [facility] [Mass/volume] to non-numeric Nitrogen, Health Syst em in Serum or results) Serum Plasma Creatinine 0.70 Normal (applies Creatinine, [facility] [Mass/volume] mg/dl to non-numeric Serum Health Syst em in Serum or results) Plasma Calcium 9.2 Normal (applies Calcium, Total [facility] [Mass/volume] mg/dl to non-numeric Serum Health Syst em in Serum or results) Plasma Anion gap in 6.00 Below low normal Anion Gap [facility] Serum or mmol/L Health System Plasma ID Date Data Source [id number] 02/04/2019 04:16:09 PM [facility] Name Value Range Interpretation Description Data Source(s ) Supporting Code Document(s ) Lipase 69 U/L Normal (applies to Lipase, Serum [facility] [Enzymatic non-numeric Health System activity/vo results) lume] in Serum or Plasma ID Date Data Source [id number] 02/04/2019 04:16:09 PM EST [facility] Name Value Range Interpretation Description Data Sup porting Code Source(s) Document(s ) HerpesSimplesVirusIIgG See Normal (applies Herpes M [facility] Titer report to non-numeric [facility] results) Virus I IgG System Titer HerpesSimplexVirusIIIg See Normal (applies Herpes M [facility] GTiter report to non-numeric [facility] results) Virus II IgG System Titer ID Date Data Source [id number] 02/04/2019 04:16:09 PM EST [facility] Name Value Range Interpretation Description Data Sup porting Code Source(s) Document(s ) HepatitisCRati 0.12 {Ratio} Normal (applies Hepatitis C [facility] to non-numeric Ratio [facility] results) System HepatitisCAnti Non Normal (applies Hepatitis C [facility] body,Serum. ReactiveReferen to non-numeric Antibody, Health ce Range: Non results) Serum. System Reactive A Non Reactive test result does not exclude the possibility of HCV infection since the time for seroconversion is variable. HepatitisBSurf DNR Test Normal (applies Hepatitis B [facility] aceAntigenNeut Performed at: to non-numeric [facility] results) Antigen Neut IPDIA, [place] [address] Yaz White M.D. HepatitisBCore Non Normal (applies Hepatitis B [facility] AntibodyIgM ReactiveReferen to non-numeric [facility] ce Range: Non results) Antibody IgM System Reactive Hepatitis A NonreactiveRefe Normal (applies Hepatitis A [facility] IgM antibody rence Range: to non-numeric IgM Antibody Health test Nonreactive results) System (procedure) HepatitisBSurf Non Normal (applies Hepatitis B [facility] aceAntigen. ReactiveReferen to non-numeric [facility] ce Range: Non results) Antigen. System Reactive ID Date Data Source [id number] 02/04/2019 04:16:09 PM EST [facility] Name Value Range Interpretation Description Data Source(s ) Supporting Code Document(s ) Reagin Ab Non-react Normal (applies to RPR/VDRL. [facility] [Presence] chrissy non-numeric Health System in Serum by results) RPR ID Date Data Source [id number] 02/04/2019 04:16:09 PM EST [facility] Name Value Range Interpretation Description Data Sup porting Code Source(s) Document(s ) Prothrombintim 10.60 Normal (applies Prothrombin [facility](PT) to non-numeric time (PT) Health System results) INR in Blood 0.99 Normal (applies INR Result [facility] by Coagulation {Ratio} to non-numeric Health Sys tem assay results) Normal = 0.7-1.1Therapeutic = 2.0-3.0Mec hanical Heart = 3.0-4.5 ID Date Data Source [id number] 02/04/2019 04:16:09 PM EST [facility] Name Value Range Interpretation Description Data Sup porting Code Source(s) Document(s ) Leukocytes 6.7 Normal (applies WBC Count [facility] [#/volume] in {10\\S\\3_ to non-numeric Health Unspecified uL} results) System specimen by Automated count Erythrocytes 4.34 Normal (applies RBC Count [facility] [#/volume] in {10\\S\\6_ to non-numeric Health Blood by uL} results) System Automated count Hemoglobin 10.6 Below low normal Hemoglobin, [facility] [Mass/volume] in {gm/dL} Whole Blood [facility] Blood System Hematocrit 33.3 % Below low normal Hematocrit, [facility] [Volume Whole Blood Health Fraction] of System Blood Erythrocyte mean 76.7 fl Below low normal MCV [facility] corpuscular Health volume [Entitic System volume] by Automated count Erythrocyte mean 24.4 pg Below low normal MCH [facility] corpuscular Health hemoglobin System [Entitic mass] by Automated count Erythrocyte mean 31.8 Below low normal MCHC [facility] corpuscular {gm/dL} Health hemoglobin System concentration [Mass/volume] by Automated count Erythrocyte 18.8 % Above high normal RDW [facility] distribution Health width [Entitic System volume] by Automated count Platelets 482 Above high normal Platelet [facility] [#/volume] in {10\\S\\3_ Count Health Plasma by uL} System Automated count Platelet mean 10.2 fl Normal (applies MPV [facility] volume [Entitic to non-numeric Health volume] in Blood results) System by Automated count Monocytes 0.5 Normal (applies Monocyte [facility] [#/volume] in {10\\S\\3_ to non-numeric Count Health Blood by Manual uL} results) System count Eosinophils 0.1 Normal (applies Eosinophil [facility] [#/volume] in {10\\S\\3} to non-numeric Count Blood Health Blood results) System Neutrophils 4.1 Normal (applies Absolute [facility] [#/volume] in {10\\S\\3_ to non-numeric Neutrophil Health Body fluid uL} results) Count System Basophils 0.04 Normal (applies Basophil [facility] [#/volume] in {10\\S\\3_ to non-numeric Count Health Blood by uL} results) System Automated count Lymphocyte 1.9 Normal (applies Lymphocyte [facility] percent {10\\S\\3_ to non-numeric Absolute Health differential uL} results) System count (procedure) Neutrophils/100 61.8 % Normal (applies Neutrophil % [facility] leukocytes in to non-numeric Health Blood by results) System Automated count Monocytes/100 8 % Normal (applies Monocyte % [facility] leukocytes in to non-numeric Health Blood results) System Eosinophils/100 2 % Normal (applies Eosinophil % [facility] leukocytes in to non-numeric Health Unspecified results) System specimen Basophils/100 1 % Normal (applies Basophil % [facility] leukocytes in to non-numeric Health Unspecified results) System specimen by Manual count Lymphocytes 28 % Normal (applies Lymphocyte % [facility] [#/volume] in to non-numeric Health Blood by results) System Automated count ID Date Data Source [id number] 02/04/2019 04:16:09 PM EST [facility] System Name Value Range Interpretation Description Data Sup porting Code Source(s) Document(s ) hCGQuantitative Less than 5.0 Normal (applies hCG [facility] Negative = <5 to non-numeric Quantitative Health mIU/mLAPPROXI results) System MATE GEST. AGE APPROXIMATE HCG mIU/ML 0.2 - 1 week 5 - 50 1 - 2 weeks 50 - 500 2 - 3 weeks 100 - 5,000 3 - 4 weeks 500 - 10,000 4 - 5 weeks 1,000 - 50,000 5 - 6 weeks 10,000 - 100,000 6 - 8 weeks 15,000 - 200,000 8 - 12 weeks 10,000 - 100,000HCG levels between 5-25 mIU/mL may be indicative of early . Correlation with other clinical findings and/or repeat of HCG quantitative testing recommened. ID Date Data Source [id number] 02/04/2019 04:16:09 PM EST [facility] Name Value Range Interpretation Description Data Sup porting Code Source(s) Document(s ) Sodium 136 Below low normal Sodium, Serum [facility] [Moles/volume] mmol/L Health in Serum or System Plasma Chloride 107 Normal (applies Chloride, [facility] [Moles/volume] mmol/L to non-numeric Serum Health in Serum or results) System Plasma Carbon dioxide, 22.0 Normal (applies CO2, Serum [facility] total mmol/L to non-numeric Health [Moles/volume] results) System in Serum or Plasma TotalProtein 7.4 Normal (applies Total Protein [facility] mg/dl to non-numeric Health results) System Glucose 74 mg/dL Normal (applies Glucose, Serum [facility] [Mass/volume] to non-numeric Health in Serum or results) System Plasma ok Urea nitrogen 10 mg/dl Normal (applies Blood Urea [facility] [Mass/volume] in to non-numeric Nitrogen, Health S yste Serum or Plasma results) Serum Creatinine 0.90 mg/dl Normal (applies Creatinine, [facility] [Mass/volume] in to non-numeric Serum Health S yste Serum or Plasma results) Alkaline phosphatase 69 {IU/L} Normal (applies Alkaline [facility] isoenzymes [Enzymatic to non-numeric Phosphatase, Health System activity/volume] in results) Serum Serum or Plasma by Heat stability Bilirubin.total 0.1 mg/dl Below low Bilirubin, [facility] [Mass/volume] in normal Serum Total Health Syst em Serum or Plasma Aspartate 49 {IU/L} Above high Aspartate [facility] aminotransferase normal Transaminase, Health Sy stem [Enzymatic Serum activity/volume] in Serum or Plasma by With P-5'-P Albumin [Mass/volume] 3.7 {gm/dl} Below low Albumin, Serum [facility] in Serum or Plasma normal Health Syst em I.Phosphorus 3.8 mg/dl Normal (applies I. Phosphorus [facility] to non-numeric Health System results) Alanine 12 {IU/L} Normal (applies Alanine [facility] aminotransferase to non-numeric Aminotransfera [facility] System [Enzymatic results) se, Serum activity/volume] in Serum or Plasma Calcium [Mass/volume] 8.9 mg/dl Normal (applies Calcium, Tot al [facility] in Serum or Plasma to non-numeric Serum Health System results) A/GRatio 1.00 Normal (applies A/G Ratio [facility] to non-numeric Health System results) Urate [Mass/volume] 7.2 mg/dl Normal (applies Uric Acid, [facility] in Serum or Plasma to non-numeric Serum Health System results) Anion gap in Serum or 7.00 mmol/L Below low Anion Gap [facility] Plasma normal Health System Glomerular filtration Greater than 60 Normal (applies GFR [facility] rate/1.73 sq eGFR will provide to non-numeric Heal th System M.predicted [Volume clinicians with a results) Rate/Area] in Serum more accurate or Plasma by indicator of Creatinine-based renal function formula (CKD-EPI) then the serum creatinine. The eGFR is automatically calculated from an empiric formula (endorsed by the [employer]) which incorporates age, sex, and race.Clinicians may notice surprisingly low GFR's with serum creatinine values within normal range- particularly in elderly women (with low muscle mass).In the hospital setting, the eGFR should add an element of safety in drug dosing, in assessing the risk of IV contrast administration, and in assessing vascular risk.The NKF staging system is as follows:Normal: eGFR >90 with no kidney markersStage 1: eGFR >90 with kidney markers*Stage 2: eGFR 60-89Stage 3: eGFR 30-59Stage 4: eGFR 15-29Stage 5: eGFR <15 (usually requiring dialysis)*Markers include: Proteinuria, Hematuria, abnormal imaging-studies, or other blood or urine test abnormalities ID Date Data Source [id number] 02/04/2019 04:16:09 PM EST [facility] System Name Value Range Interpretation Description Data Sup porting Code Source(s) Document(s ) Leukocytes 7.6 Normal (applies WBC Count [facility] [#/volume] in {10\\S\\3_ to non-numeric Health Unspecified uL} results) System specimen by Automated count Erythrocytes 4.69 Normal (applies RBC Count [facility] [#/volume] in {10\\S\\6_ to non-numeric Health Blood by uL} results) System Automated count Hemoglobin 11.3 Below low normal Hemoglobin, [facility] [Mass/volume] in {gm/dL} Whole Blood Health Blood System Hematocrit 36.2 % Normal (applies Hematocrit, [facility] [Volume to non-numeric Whole Blood Health Fraction] of results) System Blood Erythrocyte mean 77.2 fl Below low normal MCV [facility] corpuscular Health volume [Entitic System volume] by Automated count Erythrocyte mean 24.1 pg Below low normal MCH [facility] corpuscular Health hemoglobin System [Entitic mass] by Automated count Erythrocyte mean 31.2 Below low normal MCHC [facility] corpuscular {gm/dL} Health hemoglobin System concentration [Mass/volume] by Automated count Erythrocyte 51.8 % Above high normal RDW [facility] distribution Health width [Entitic System volume] by Automated count Platelets 480 Above high normal Platelet [facility] [#/volume] in {10\\S\\3_ Count Health Plasma by uL} System Automated count Platelet mean 8.9 fl Normal (applies MPV [facility] volume [Entitic to non-numeric Health volume] in Blood results) System by Automated count Monocytes 0.5 Normal (applies Monocyte [facility] [#/volume] in {10\\S\\3_ to non-numeric Count Health Blood by Manual uL} results) System count Eosinophils 0.0 Normal (applies Eosinophil [facility] [#/volume] in {10\\S\\3} to non-numeric Count Blood Health Blood results) System Neutrophils 4.9 Normal (applies Absolute [facility] [#/volume] in {10\\S\\3_ to non-numeric Neutrophil Health Body fluid uL} results) Count System Basophils 0.00 Normal (applies Basophil [facility] [#/volume] in {10\\S\\3_ to non-numeric Count Health Blood by uL} results) System Automated count Lymphocyte 2.2 Normal (applies Lymphocyte [facility] percent {10\\S\\3_ to non-numeric Absolute Health differential uL} results) System count (procedure) Neutrophils/100 64.1 % Normal (applies Neutrophil % [facility] leukocytes in to non-numeric Health Blood by results) System Automated count Monocytes/100 6 % Normal (applies Monocyte % [facility] leukocytes in to non-numeric Health Blood results) System Eosinophils/100 0 % Below low normal Eosinophil % [facility] leukocytes in Health Unspecified System specimen Basophils/100 0 % Normal (applies Basophil % [facility] leukocytes in to non-numeric Health Unspecified results) System specimen by Manual count Lymphocytes 30 % Normal (applies Lymphocyte % [facility] [#/volume] in to non-numeric Health Blood by results) System Automated count ID Date Data Source [id number] 02/04/2019 04:16:09 PM EST [facility] Name Value Range Interpretation Description Data Sup porting Code Source(s) Document(s ) Sodium 140 Normal (applies Sodium, Serum [facility] [Moles/volume mmol/L to non-numeric Health Syst em ] in Serum or results) Plasma Potassium 4.1 Normal (applies Potassium, [facility] [Mass/volume] mmol/L to non-numeric Serum Health Syst em in Serum or results) Plasma Chloride 106 Normal (applies Chloride, [facility] [Moles/volume mmol/L to non-numeric Serum Health Syst em ] in Serum or results) Plasma Carbon 24.0 Normal (applies CO2, Serum [facility] dioxide, mmol/L to non-numeric Health System total results) [Moles/volume ] in Serum or Plasma Glucose 101 Normal (applies Glucose, Serum [facility] [Mass/volume] mg/dL to non-numeric Health Syst em in Serum or results) Plasma ok Urea nitrogen 6 mg/dl Below low Blood Urea [facility] Heal th [Mass/volume] in normal Nitrogen, Serum System Serum or Plasma Creatinine 0.70 mg/dl Normal Creatinine, [facility]alt [facility] [Mass/volume] in (applies to Serum System Serum or Plasma non-numeric results) Calcium [Mass/volume] 9.5 mg/dl Normal Calcium, Total [facility] in Serum or Plasma (applies to Serum System non-numeric results) Anion gap in Serum or 10.00 mmol/L Normal Anion Gap [facility] Health Plasma (applies to System non-numeric results) ID Date Data Source [id number] 02/04/2019 04:16:09 PM EST [facility] System Name Value Range Interpretation Description Data Sup porting Code Source(s) Document(s ) Phenobarbital 44.9 Above upper PHENobarbital [facility] [Mass/volume] in ug/ml panic limits Level, Serum Health Serum or Plasma System ID Date Data Source [id number] 02/04/2019 04:16:09 PM EST [facility] System Name Value Range Interpretation Description Data Sup porting Code Source(s) Document(s ) Methadone Cancelled no Methadone [facility] [Mass/volume spec Level, Urine Health ] in Urine received System ID Date Data Source [id number] 02/04/2019 04:16:09 PM EST [facility] System Name Value Range Interpretation Description Data Sup porting Code Source(s) Document(s ) Phenytoin Less Below low normal Phenytoin [facility] [Mass/volume] than Level, Serum Health System in Serum or 5.25 Plasma ID Date Data Source [id number] 02/04/2019 04:16:09 PM EST [facility] System Name Value Range Interpretation Code Description Data Nany rce(s) Supporting Document(s ) Anti-IgG Negative Normal (applies to Anti-IgG [facility] non-numeric Health System results) ID Date Data Source [id number] 02/04/2019 04:16:09 PM EST [facility] System Name Value Range Interpretation Description Data Sup porting Code Source(s) Document(s ) Type B Normal (applies Type [facility] to non-numeric Health results) System D Ab [Titer] in Rh Normal (applies Rh Factor, [facility] Serum or Plasma Positive to non-numeric Whole Blood Health results) System AntibodyScreen Negative Normal (applies Antibody [facility] to non-numeric Screen Health results) System ID Date Data Source [id number] 02/04/2019 04:16:09 PM EST [facility] System Name Value Range Interpretation Description Data Sup porting Code Source(s) Document(s ) Prothrombintim 10.00 Normal (applies Prothrombin [facility](PT) to non-numeric time (PT) Health System results) INR in Blood 0.93 Normal (applies INR Result [facility] by Coagulation {Ratio} to non-numeric Health Sys tem assay results) Normal = 0.7-1.1Therapeutic = 2.0-3.0Mec hanical Heart = 3.0-4.5 ID Date Data Source [id number] 02/04/2019 04:16:09 PM EST [facility] System Name Value Range Interpretation Description Data Sup porting Code Source(s) Document(s ) Leukocytes 9.5 Normal (applies WBC Count [facility] [#/volume] in {10^3_uL to non-numeric Health Unspecified } results) System specimen by Automated count Erythrocytes 5.00 Normal (applies RBC Count [facility] [#/volume] in {10^6_uL to non-numeric Health Blood by } results) System Automated count Hemoglobin 14.6 Normal (applies Hemoglobin [facility] [Mass/volume] in {gm/dL} to non-numeric Health Blood results) System Hematocrit 44.0 % Normal (applies Hematocrit [facility] [Volume to non-numeric Health Fraction] of results) System Blood Erythrocyte mean 88.0 fl Normal (applies MCV [facility] corpuscular to non-numeric Health volume [Entitic results) System volume] by Automated count Erythrocyte mean 29.2 pg Normal (applies MCH [facility] corpuscular to non-numeric Health hemoglobin results) System [Entitic mass] by Automated count Erythrocyte mean 33.2 Normal (applies MCHC [facility] corpuscular {gm/dL} to non-numeric Health hemoglobin results) System concentration [Mass/volume] by Automated count Erythrocyte 14.2 % Normal (applies RDW-CV [facility] distribution to non-numeric Health width [Entitic results) System volume] by Automated count Platelets 311 Normal (applies Platelet [facility] [#/volume] in {10^3_uL to non-numeric Count Health Plasma by } results) System Automated count Platelet mean 10.8 fl Above high normal MPV [facility] volume [Entitic Health volume] in Blood System by Automated count Monocytes 0.7 Normal (applies Monocyte # [facility] [#/volume] in {10^3_uL to non-numeric Health Blood by Manual } results) System count Eosinophils 0.09 Normal (applies Eosinophil # [facility] [#/volume] in {10^3_uL to non-numeric Health Blood } results) System Neutrophils 5.0 Normal (applies Neutrophil # [facility] [#/volume] in {10^3_uL to non-numeric Health Body fluid } results) System Basophils 0.04 Normal (applies Basophil # [facility] [#/volume] in {10^3_uL to non-numeric Health Blood by } results) System Automated count Lymphocyte 3.6 Normal (applies Lymphocyte # [facility] percent {10^3_uL to non-numeric Health differential } results) System count (procedure) Neutrophils/100 52.7 % Normal (applies Neutrophil % [facility] leukocytes in to non-numeric Health Blood by results) System Automated count Monocytes/100 7.6 % Normal (applies Monocyte % [facility] leukocytes in to non-numeric Health Blood results) System Eosinophils/100 1.0 % Normal (applies Eosinophil % [facility] leukocytes in to non-numeric Health Unspecified results) System specimen Basophils/100 0.4 % Normal (applies Basophil % [facility] leukocytes in to non-numeric Health Unspecified results) System specimen by Manual count Lymphocytes 38.3 % Normal (applies Lymphocyte % [facility] [#/volume] in to non-numeric Health Blood by results) System Automated count ID Date Data Source [id number] 02/04/2019 04:16:09 PM EST [facility] System Name Value Range Interpretation Description Data Sup porting Code Source(s) Document(s ) HCGQualitative NEGATIVE Normal (applies HCG [facility] to non-numeric Qualitative Health results) System Default Normal RangesNegative <5Indeterm inate 5-25(Please repeat in 2 days.)Positive >25 ID Date Data Source [id number] 02/04/2019 04:16:09 PM EST [facility] System Name Value Range Interpretation Description Data Sup porting Code Source(s) Document(s ) Sodium 143 Normal (applies Sodium, Serum [facility] [Moles/volume] in mmol/L to non-numeric Health Serum or Plasma results) System Potassium 4.1 Normal (applies Potassium, [facility] [Mass/volume] in mmol/L to non-numeric Serum Health Serum or Plasma results) System Chloride 110 Above high Chloride, [facility] [Moles/volume] in mmol/L normal Serum Health Serum or Plasma System Carbon dioxide, 21.0 Below low normal CO2, Serum [facility] total mmol/L [facility] [Moles/volume] in System Serum or Plasma TotalProtein 6.5 Normal (applies Total Protein [facility] mg/dl to non-numeric Health results) System Glucose 105 Normal (applies Glucose, [facility] [Mass/volume] in mg/dL to non-numeric Serum Health Serum or Plasma results) System Urea nitrogen 10 Normal (applies Blood Urea [facility] [facility] [Mass/volume] in mg/dl to non-numeric Nitrogen, Health Serum or Plasma results) Serum System Creatinine 1.00 Normal (applies Creatinine, [facility] [Mass/volume] in mg/dl to non-numeric Serum Health Serum or Plasma results) System Alkaline 95 Normal (applies Alkaline [facility] phosphatase {IU/L} to non-numeric Phosphatase, Health isoenzymes results) Serum System [Enzymatic activity/volume] in Serum or Plasma by Heat stability Bilirubin.total 0.2 Normal (applies Bilirubin, [facility] [Mass/volume] in mg/dl to non-numeric Serum Total Health Serum or Plasma results) System DirectBilirubin 0.1 Normal (applies Direct [facility] [facility] mg/dl to non-numeric Bilirubin Health results) System Aspartate 20 Normal (applies Aspartate [facility] aminotransferase {IU/L} to non-numeric Transaminase, Heal th [Enzymatic results) Serum System activity/volume] in Serum or Plasma by With P-5'-P Albumin 3.8 Below low normal Albumin, [facility] [Mass/volume] in {gm/dl} Serum Health Serum or Plasma System I.Phosphorus 3.3 Normal (applies I. Phosphorus [facility] mg/dl to non-numeric Health results) System Alanine 16 Normal (applies Alanine [facility] aminotransferase {IU/L} to non-numeric Aminotransfer Heal th [Enzymatic results) ase, Serum System activity/volume] in Serum or Plasma Calcium 9.7 Normal (applies Calcium, [facility] [Mass/volume] in mg/dl to non-numeric Total Serum Health Serum or Plasma results) System A/GRatio 1.41 Normal (applies A/G Ratio [facility] to non-numeric Health results) System Urate 6.4 Normal (applies Uric Acid, [facility] [Mass/volume] in mg/dl to non-numeric Serum Health Serum or Plasma results) System Anion gap in Serum 12.00 Normal (applies Anion Gap [facility] or Plasma mmol/L to non-numeric Health results) System Glomerular 58.85 Normal (applies GFR [facility] filtration to non-numeric Health rate/1.73 sq results) System M.predicted [Volume Rate/Area] in Serum or Plasma by Creatinine-based formula (CKD-EPI) eGFR will provide clinicians with a more accurate indicator of renal function then the serum creatinine. The eGFR is automa tically calculated from an empiric formula (endorsed by the [employer] ion) which incorporates age, sex, and race.Clinicians may notice surprisingly low GFR's with serum creatinine valueswithin normal range- particularly in elderly wo men (with low muscle mass).In the hospital setting, the eGFR should add an element of safety in drug dosing, in assessing the risk of IV contrast administration, and in assessing vascular risk.The NKF staging system is as follows:Normal: eGFR >90 with no kidney markersStage 1: eGFR >90 with kidney markers*Stage 2: eGFR 60- 89Stage 3: eGFR 30-59Stage 4: eGFR 15-29Stage 5: eGFR <15 (usually requir ing dialysis)*Markers include: Proteinuria, Hematuria, abnormal imaging-studies, or other blood or urine test abnormalities ID Date Data Source [id number] 02/04/2019 04:16:09 PM EST [facility] System Name Value Range Interpretation Description Data Sup porting Code Source(s) Document(s ) Phenobarbital < 1.10 Below low normal Phenobarbital [facility] [Mass/volume] in Level, Serum Health Serum or Plasma System ID Date Data Source [id number] 02/04/2019 04:16:09 PM EST [facility] System Name Value Range Interpretation Description Data Sup porting Code Source(s) Document(s ) TroponinIQuantitative 0.00 Normal (applies Troponin I [facility] ng/ml to non-numeric Quantitative Health results) System ID Date Data Source [id number] 02/04/2019 04:16:09 PM EST [facility] System Name Value Range Interpretation Description Data Sup porting Code Source(s) Document(s ) Triglyceride 111 Normal (applies Triglycerides, [facility] [Mass/volume] mg/dl to non-numeric Serum Health in Serum or results) System Plasma Optimal = < 100 mg/dLBoderline High = 15 0 - 199 mg/dLHigh = 200 - 499 mg/dLVery High = > 500 mg/dL Cholesterol 140 mg/dl Normal (applies Cholesterol, Serum [facility] [Mass/volume] in to non-numeric Health S yste Serum or Plasma results) <200 mg/dL = [id number] - 239 md/dL = Borderline>240 mg/dL = High Risk Cholesterol in HDL 52.0 mg/dL Normal (applies HDL Cholestero l, [facility] [Mass/volume] in to non-numeric Serum Health S yste Serum or Plasma results) Cholesterol in LDL 65.8 mg/dL Normal (applies Low Density [facility] [Mass/volume] in to non-numeric Lipoprotein, Healt h System Serum or Plasma results) Calculated OPTIMAL: LESS THAN 100 mg/dLNEAR OPTIMAL : 100 - 129 mg/dLBODERLINE HIGH: 130 - 150 mg/dL Cholesterol in VLDL 22.2 Normal (applies to VLDL, Serum [facility] [Mass/volume] in Serum non-numeric results) System or Plasma CHDRisk 2.69 Normal (applies to CHD Risk [facility] non-numeric results) System ID Date Data Source [id number] 02/04/2019 04:16:09 PM EST [facility] Name Value Range Interpretation Description Data Source(s ) Supporting Code Document(s ) Blood,Oc Negative Normal (applies to Blood, Occult [facility] cultFece non-numeric Feces Health System s results) ID Date Data Source [id number] 02/04/2019 04:16:09 PM EST [facility] Name Value Range Interpretation Description Data Sup porting Code Source(s) Document(s ) Color YELLOW Normal (applies Color [facility] to non-numeric Health results) System Appearance of CLEAR Normal (applies Urine [facility] Urine to non-numeric Appearance Health results) System Specific gravity 1.030 Normal (applies Urine Specific [facility] of Urine to non-numeric [facility] results) System pH.. 6.0 Normal (applies pH.. [facility] {pH_units} to non-numeric Health results) System Glucose,UA NEGATIVE Normal (applies Glucose, UA [facility] to non-numeric Health results) System Protein TRACE Normal (applies Protein [facility] [Mass/volume] in to non-numeric Health Serum or Plasma results) System BilirubinUrine NEGATIVE Normal (applies Bilirubin [facility] [facility] to non-numeric Urine Health results) System Urobilinogen 0.2 mg/dL Normal (applies Urobilinogen [facility] [Mass/volume] in to non-numeric UA Health Urine results) System Ketones NEGATIVE Normal (applies Ketones UA [facility] [Mass/volume] in to non-numeric Health Urine results) System Nitrate+Nitrite NEGATIVE Normal (applies Nitrite [facility] [Mass/volume] in to non-numeric Health Unspecified results) System specimen Leukocyte NEGATIVE Normal (applies Leukocyte [facility] esterase to non-numeric Esterase Health [Units/volume] results) Concentration System in Urine Leukocytes 0-2 Normal (applies White Blood [facility] [#/volume] in to non-numeric Cells Health Unspecified results) System specimen by Automated count RedBloodCells 0-2 Normal (applies Red Blood [facility] to non-numeric Cells Health results) System UrineBlood TRACE-LYSE Normal (applies Urine Blood [facility] D to non-numeric Health results) System ID Date Data Source [id number] 02/04/2019 04:16:09 PM EST [facility] Name Value Range Interpretation Description Data Sup porting Code Source(s) Document(s ) Amphetamine Negative Normal (applies Amphetamine [facility] [Mass/volume] to non-numeric Level, Urine Health in Urine results) System Cut-off = 1000 ng/mL Barbiturates Positive Abnormal (applies Barbiturate [facility] [facility] [Mass/volume] in to non-numeric Screen, Urine Heal th System Urine by Screen results) method Cut-off = 200 ng/mL Benzodiazepines Positive Abnormal Benzodiazepines, [facility] [facility] [Mass/volume] in (applies to Urine Health Syst em Urine non-numeric results) Cut-off = 200 ng/mL Cocaine Positive Abnormal (applies Cocaine [facility] metabolites.other to non-numeric Metabolite Health System [Mass/volume] in Urine results) Screen, Urine Cut-off = 300 ng/mL Methadone Negative Normal (applies to Methadone Level, [facility] [Mass/volume] in non-numeric Urine System Urine results) Cut-off = 300 ng/mL Eihits900,Urine Negative Normal (applies to Opiate 300, [facility] non-numeric results) Urine System Cut-off = 300 ng/mL Phencyclidine Negative Normal (applies Phencyclidine, Urine [facility] [Mass/volume] in to non-numeric Health S ystem Urine results) Cut-off = 25 ng/mL THC Negative Normal (applies to non-numeric resul ts) THC [facility] Cutt-off = 50These results are for medic al treatment only. The positive findings are unconfirmed. Request confirmatory/quanti tative test if needed. ID Date Data Source [id number] 02/04/2019 04:16:09 PM EST [facility] System Name Value Range Interpretation Description Data Sup porting Code Source(s) Document(s ) Sodium 142 Normal (applies Sodium, Serum [facility] [Moles/volume] in mmol/L to non-numeric Health Serum or Plasma results) System Potassium 3.9 Normal (applies Potassium, [facility] [Mass/volume] in mmol/L to non-numeric Serum Health Serum or Plasma results) System Chloride 110 Above high Chloride, [facility] [Moles/volume] in mmol/L normal Serum Health Serum or Plasma System Carbon dioxide, 19.0 Below low normal CO2, Serum [facility] total mmol/L [facility] [Moles/volume] in System Serum or Plasma TotalProtein 6.1 Below low normal Total Protein [facility] mg/dl Health System Glucose 112 Above high Glucose, [facility] [Mass/volume] in mg/dL normal Serum Health Serum or Plasma System Urea nitrogen 9 mg/dl Normal (applies Blood Urea [facility] [facility] [Mass/volume] in to non-numeric Nitrogen, Health Serum or Plasma results) Serum System Creatinine 0.90 Normal (applies Creatinine, [facility] [Mass/volume] in mg/dl to non-numeric Serum Health Serum or Plasma results) System Alkaline 91 Normal (applies Alkaline [facility] phosphatase {IU/L} to non-numeric Phosphatase, Health isoenzymes results) Serum System [Enzymatic activity/volume] in Serum or Plasma by Heat stability Bilirubin.total 0.3 Normal (applies Bilirubin, [facility] [Mass/volume] in mg/dl to non-numeric Serum Total Health Serum or Plasma results) System DirectBilirubin 0.1 Normal (applies Direct [facility] [facility] mg/dl to non-numeric Bilirubin Health results) System Aspartate 15 Normal (applies Aspartate [facility] aminotransferase {IU/L} to non-numeric Transaminase, Heal th [Enzymatic results) Serum System activity/volume] in Serum or Plasma by With P-5'-P Albumin 3.6 Below low normal Albumin, [facility] [Mass/volume] in {gm/dl} Serum Health Serum or Plasma System I.Phosphorus 3.9 Normal (applies I. Phosphorus [facility] mg/dl to non-numeric Health results) System Alanine 15 Normal (applies Alanine [facility] aminotransferase {IU/L} to non-numeric Aminotransfer Heal th [Enzymatic results) ase, Serum System activity/volume] in Serum or Plasma Calcium 9.1 Normal (applies Calcium, [facility] [Mass/volume] in mg/dl to non-numeric Total Serum Health Serum or Plasma results) System A/GRatio 1.44 Normal (applies A/G Ratio [facility] to non-numeric Health results) System Urate 5.8 Normal (applies Uric Acid, [facility] [Mass/volume] in mg/dl to non-numeric Serum Health Serum or Plasma results) System Anion gap in Serum 13.00 Above high Anion Gap [facility] or Plasma mmol/L normal Health System Glomerular 66.46 Normal (applies GFR [facility] filtration to non-numeric Health rate/1.73 sq results) System M.predicted [Volume Rate/Area] in Serum or Plasma by Creatinine-based formula (CKD-EPI) eGFR will provide clinicians with a more accurate indicator of renal function then the serum creatinine. The eGFR is automa tically calculated from an empiric formula (endorsed by the [employer] ion) which incorporates age, sex, and race.Clinicians may notice surprisingly low GFR's with serum creatinine valueswithin normal range- particularly in elderly wo men (with low muscle mass).In the hospital setting, the eGFR should add an element of safety in drug dosing, in assessing the risk of IV contrast administration, and in assessing vascular risk.The NKF staging system is as follows:Normal: eGFR >90 with no kidney markersStage 1: eGFR >90 with kidney markers*Stage 2: eGFR 60- 89Stage 3: eGFR 30-59Stage 4: eGFR 15-29Stage 5: eGFR <15 (usually requir ing dialysis)*Markers include: Proteinuria, Hematuria, abnormal imaging-studies, or other blood or urine test abnormalities ID Date Data Source [id number] 02/04/2019 04:16:09 PM [facility] System Name Value Range Interpretation Code Description Data Nany rce(s) Supporting Document(s ) HbA1C 5.6 % Normal (applies to HbA1C [facility] ID non-numeric results) System ID Date Data Source [id number] 02/04/2019 04:16:09 PM [facility] System Name Value Range Interpretation Description Data Sup porting Code Source(s) Document(s ) Creatine 168 Above high normal Creatine [facility] kinase.MB {IU/L} Kinase, Serum Health System [Mass/volume ] in Serum or Plasma ID Date Data Source [id number] 02/04/2019 04:16:09 PM [facility] System Name Value Range Interpretation Description Data Sup porting Code Source(s) Document(s ) Leukocytes 9.1 Normal (applies WBC Count [facility] [#/volume] in {10^3_uL to non-numeric Health Unspecified } results) System specimen by Automated count Erythrocytes 5.10 Normal (applies RBC Count [facility] [#/volume] in {10^6_uL to non-numeric Health Blood by } results) System Automated count Hemoglobin 14.9 Normal (applies Hemoglobin [facility] [Mass/volume] in {gm/dL} to non-numeric Health Blood results) System Hematocrit 45.3 % Normal (applies Hematocrit [facility] [Volume to non-numeric Health Fraction] of results) System Blood Erythrocyte mean 88.8 fl Normal (applies MCV [facility] corpuscular to non-numeric Health volume [Entitic results) System volume] by Automated count Erythrocyte mean 29.2 pg Normal (applies MCH [facility] corpuscular to non-numeric Health hemoglobin results) System [Entitic mass] by Automated count Erythrocyte mean 32.9 Below low normal MCHC [place] corpuscular {gm/dL} Health hemoglobin System concentration [Mass/volume] by Automated count Erythrocyte 14.4 % Normal (applies RDW-CV [facility] distribution to non-numeric Health width [Entitic results) System volume] by Automated count Platelets 209 Normal (applies Platelet [facility] [#/volume] in {10^3_uL to non-numeric Count Health Plasma by } results) System Automated count Platelet mean 11.5 fl Above high normal MPV [facility] volume [Entitic Health volume] in Blood System by Automated count Monocytes 0.6 Normal (applies Monocyte # [facility] [#/volume] in {10^3_uL to non-numeric Health Blood by Manual } results) System count Eosinophils 0.10 Normal (applies Eosinophil # [facility] [#/volume] in {10^3_uL to non-numeric Health Blood } results) System Neutrophils 4.4 Normal (applies Neutrophil # [facility] [#/volume] in {10^3_uL to non-numeric Health Body fluid } results) System Basophils 0.03 Normal (applies Basophil # [facility] [#/volume] in {10^3_uL to non-numeric Health Blood by } results) System Automated count Lymphocyte 4.0 Normal (applies Lymphocyte # [facility] percent {10^3_uL to non-numeric Health differential } results) System count (procedure) Neutrophils/100 48.1 % Normal (applies Neutrophil % [facility] leukocytes in to non-numeric Health Blood by results) System Automated count Monocytes/100 6.7 % Normal (applies Monocyte % [facility] leukocytes in to non-numeric Health Blood results) System Eosinophils/100 1.1 % Normal (applies Eosinophil % [facility] leukocytes in to non-numeric Health Unspecified results) System specimen Basophils/100 0.3 % Normal (applies Basophil % [facility] leukocytes in to non-numeric Health Unspecified results) System specimen by Manual count Lymphocytes 43.8 % Normal (applies Lymphocyte % [facility] [facility] [#/volume] in to non-numeric Health Blood by results) System Automated count ID Date Data Source [id number] 02/04/2019 04:16:09 PM EST [facility] System Name Value Range Interpretation Description Data Sup porting Code Source(s) Document(s ) TroponinIQuantitative 0.00 Normal (applies Troponin I [facility] ng/ml to non-numeric Quantitative Health results) System ID Date Data Source [id number] 02/04/2019 04:16:09 PM EST [facility] System Name Value Range Interpretation Description Data Sup porting Code Source(s) Document(s ) Levetiracetam 11.30 Normal (applies LevETIRAcetam [facility] [Mass/volume] in {mcg/mL to non-numeric Level, Serum Healt h Serum or Plasma } results) System Unable to flag abnormal result(s), pl ease refer to reference range(s) below: Therapeutic Levels: Drug Dosage Tr ough Peak 500 mg BID 3.1-10.0 mcg/mL 10.0-25.0 mcg/[id number] mg BID 4 .9-37.1 mcg/mL 30.0-40.0 mcg/xQ3854 mg BID 7.0-34.0 mcg/mL 36.1-70.0 mcg/mL To xic level: Not established This test was performed at: [facility] [address] Test Performed at: [email or web address], [address] [place] [address] Nitish thorne M.D., Ph.D. ID Date Data Source [id number] 02/04/2019 04:16:09 PM EST [facility] System Name Value Range Interpretation Description Data Sup porting Code Source(s) Document(s ) hCGQuantitative < 5 Normal (applies hCG [facility] to non-numeric Quantitative Health results) System Negative = <5 mIU/mLAPPROXIMATE GEST. AG E APPROXIMATE HCG mIU/ML 0.2 - 1 week 5 - 50 1 - 2 w eeks 50 - 500 2 - 3 weeks 100 - 5,000 3 - 4 weeks 500 - 10,000 4 - 5 weeks 1,000 - 50,000 5 - 6 weeks 10,000 - 100,000 6 - 8 weeks 15,000 - 200,000 8 - 12 weeks 10,000 - 1 00,000HCG levels between 5-25 mIU/mL may be indicative of early . Correlati on with other clinical findings and/or repeat of HCG quantitative testing recommened. ID Date Data Source [id number] 02/04/2019 04:16:09 PM EST [facility] Name Value Range Interpretation Description Data Sup porting Code Source(s) Document(s ) Sodium 144 Normal (applies Sodium, Serum [facility] [Moles/volume] in mmol/L to non-numeric Health Serum or Plasma results) System Potassium 3.7 Normal (applies Potassium, [facility] [Mass/volume] in mmol/L to non-numeric Serum Health Serum or Plasma results) System Chloride 111 Above high Chloride, [facility] [Moles/volume] in mmol/L normal Serum Health Serum or Plasma System Carbon dioxide, 24.0 Normal (applies CO2, Serum [facility] total mmol/L to non-numeric Health [Moles/volume] in results) System Serum or Plasma TotalProtein 6.5 Normal (applies Total Protein [place] mg/dl to non-numeric Health results) System Glucose 110 Above high Glucose, [facility] [Mass/volume] in mg/dL normal Serum Health Serum or Plasma System Urea nitrogen 11 Normal (applies Blood Urea [facility] [Mass/volume] in mg/dl to non-numeric Nitrogen, Health Serum or Plasma results) Serum System Creatinine 0.90 Normal (applies Creatinine, [facility] [Mass/volume] in mg/dl to non-numeric Serum Health Serum or Plasma results) System Alkaline 93 Normal (applies Alkaline [facility] phosphatase {IU/L} to non-numeric Phosphatase, Health isoenzymes results) Serum System [Enzymatic activity/volume] in Serum or Plasma by Heat stability Bilirubin.total 0.3 Normal (applies Bilirubin, [facility] [place] [Mass/volume] in mg/dl to non-numeric Serum Total Health Serum or Plasma results) System DirectBilirubin 0.1 Normal (applies Direct [facility] [facility] mg/dl to non-numeric Bilirubin Health results) System Aspartate 14 Normal (applies Aspartate [facility] aminotransferase {IU/L} to non-numeric Transaminase, Heal th [Enzymatic results) Serum System activity/volume] in Serum or Plasma by With P-5'-P Albumin 3.9 Normal (applies Albumin, [facility] [Mass/volume] in {gm/dl} to non-numeric Serum Health Serum or Plasma results) System I.Phosphorus 3.8 Normal (applies I. Phosphorus [facility] [place] mg/dl to non-numeric Health results) System Alanine 14 Normal (applies Alanine [facility] aminotransferase {IU/L} to non-numeric Aminotransfer Heal th [Enzymatic results) ase, Serum System activity/volume] in Serum or Plasma Calcium 10.0 Normal (applies Calcium, [facility] [Mass/volume] in mg/dl to non-numeric Total Serum Health Serum or Plasma results) System A/GRatio 1.50 Normal (applies A/G Ratio [facility] to non-numeric Health results) System Urate 5.2 Normal (applies Uric Acid, [facility] [Mass/volume] in mg/dl to non-numeric Serum Health Serum or Plasma results) System Anion gap in Serum 9.00 Normal (applies Anion Gap [facility] or Plasma mmol/L to non-numeric Health results) System Glomerular 66.40 Normal (applies GFR [facility] filtration to non-numeric Health rate/1.73 sq results) System M.predicted [Volume Rate/Area] in Serum or Plasma by Creatinine-based formula (CKD-EPI) eGFR will provide clinicians with a more accurate indicator of renal function then the serum creatinine. The eGFR is automa tically calculated from an empiric formula (endorsed by the National Kid[employer] ion) which incorporates age, sex, and race.Clinicians may notice surprisingly low GFR's with serum creatinine valueswithin normal range- particularly in elderly wo men (with low muscle mass).In the hospital setting, the eGFR should add an element of safety in drug dosing, in assessing the risk of IV contrast administration, and in assessing vascular risk.The NKF staging system is as follows:Normal: eGFR >90 with no kidney markersStage 1: eGFR >90 with kidney markers*Stage 2: eGFR 60- 89Stage 3: eGFR 30-59Stage 4: eGFR 15-29Stage 5: eGFR <15 (usually requir ing dialysis)*Markers include: Proteinuria, Hematuria, abnormal imaging-studies, or other blood or urine test abnormalities ID Date Data Source [id number] 02/04/2019 04:16:09 PM EST [facility] System Name Value Range Interpretation Description Data Sup porting Code Source(s) Document(s ) Phenytoin 1.6 Below low normal Phenytoin [facility] [Mass/volume] ug/ml Level, Serum Health System in Serum or Plasma ID Date Data Source [id number] 02/04/2019 04:16:09 PM EST [facility] System Name Value Range Interpretation Description Data Sup porting Code Source(s) Document(s ) TroponinIQuantitative 0.01 Normal (applies Troponin I [facility] ng/ml to non-numeric Quantitative Health results) System ID Date Data Source [id number] 02/04/2019 04:16:09 PM EST [facility] System Name Value Range Interpretation Description Data Sup porting Code Source(s) Document(s ) TroponinIQuantitative 0.01 Normal (applies Troponin I [facility] ng/ml to non-numeric Quantitative Health results) System ID Date Data Source [id number] 02/04/2019 04:16:09 PM EST [facility] System Name Value Range Interpretation Description Data Sup porting Code Source(s) Document(s ) Leukocytes 6.7 Normal (applies WBC Count [facility] [#/volume] in {10^3_uL to non-numeric Health Unspecified } results) System specimen by Automated count Erythrocytes 4.65 Normal (applies RBC Count [facility] [#/volume] in {10^6_uL to non-numeric Health Blood by } results) System Automated count Hemoglobin 13.6 Normal (applies Hemoglobin [facility] [Mass/volume] in {gm/dL} to non-numeric Health Blood results) System Hematocrit 41.5 % Normal (applies Hematocrit [facility] [Volume to non-numeric Health Fraction] of results) System Blood Erythrocyte mean 89.2 fl Normal (applies MCV [facility] corpuscular to non-numeric Health volume [Entitic results) System volume] by Automated count Erythrocyte mean 29.2 pg Normal (applies MCH [facility] corpuscular to non-numeric Health hemoglobin results) System [Entitic mass] by Automated count Erythrocyte mean 32.8 Below low normal [facility] [place] corpuscular {gm/dL} Health hemoglobin System concentration [Mass/volume] by Automated count Erythrocyte 16.0 % Above high normal RDW-CV [facility] distribution Health width [Entitic System volume] by Automated count Platelets 317 Normal (applies Platelet [facility] [#/volume] in {10^3_uL to non-numeric Count Health Plasma by } results) System Automated count Platelet mean 10.9 fl Above high normal [facility] volume [[facility] volume] in Blood System by Automated count Monocytes 0.5 Normal (applies Monocyte # [facility] [#/volume] in {10^3_uL to non-numeric Health Blood by Manual } results) System count Eosinophils 0.16 Normal (applies Eosinophil # [facility] [#/volume] in {10^3_uL to non-numeric Health Blood } results) System Neutrophils 3.4 Normal (applies Neutrophil # [facility] [#/volume] in {10^3_uL to non-numeric Health Body fluid } results) System Basophils 0.02 Normal (applies Basophil # [facility] [#/volume] in {10^3_uL to non-numeric Health Blood by } results) System Automated count Lymphocyte 2.7 Normal (applies Lymphocyte # [facility] percent {10^3_uL to non-numeric Health differential } results) System count (procedure) Neutrophils/100 51.0 % Normal (applies Neutrophil % [facility] leukocytes in to non-numeric Health Blood by results) System Automated count Monocytes/100 6.8 % Normal (applies Monocyte % [facility] leukocytes in to non-numeric Health Blood results) System Eosinophils/100 2.4 % Normal (applies Eosinophil % [facility] leukocytes in to non-numeric Health Unspecified results) System specimen Basophils/100 0.3 % Normal (applies Basophil % [facility] leukocytes in to non-numeric Health Unspecified results) System specimen by Manual count Lymphocytes 39.5 % Normal (applies Lymphocyte % [facility] [#/volume] in to non-numeric Health Blood by results) System Automated count ID Date Data Source [id number] 02/04/2019 04:16:09 PM EST [facility] Name Value Range Interpretation Description Data Sup porting Code Source(s) Document(s ) Sodium 140 Normal (applies Sodium, Serum [facility] [Moles/volume] in mmol/L to non-numeric Health Serum or Plasma results) System Potassium 4.4 Normal (applies Potassium, [facility] [Mass/volume] in mmol/L to non-numeric Serum Health Serum or Plasma results) System Chloride 110 Above high Chloride, [facility] [Moles/volume] in mmol/L normal Serum Health Serum or Plasma System Carbon dioxide, 22.0 Normal (applies CO2, Serum [facility] total mmol/L to non-numeric Health [Moles/volume] in results) System Serum or Plasma TotalProtein 5.9 Below low normal Total Protein [facility] mg/dl [facility] System Glucose 94 Normal (applies Glucose, [facility] [Mass/volume] in mg/dL to non-numeric Serum Health Serum or Plasma results) System Urea nitrogen 6 mg/dl Below low normal Blood Urea [facility] [Mass/volume] in Nitrogen, Health Serum or Plasma Serum System Creatinine 0.80 Normal (applies Creatinine, [facility] [Mass/volume] in mg/dl to non-numeric Serum Health Serum or Plasma results) System Alkaline 88 Normal (applies Alkaline [facility] phosphatase {IU/L} to non-numeric Phosphatase, Health isoenzymes results) Serum System [Enzymatic activity/volume] in Serum or Plasma by Heat stability Bilirubin.total 0.2 Normal (applies Bilirubin, [facility] [Mass/volume] in mg/dl to non-numeric Serum Total Health Serum or Plasma results) System DirectBilirubin 0.1 Normal (applies Direct [facility] mg/dl to non-numeric Bilirubin Health results) System Aspartate 13 Normal (applies Aspartate [facility] aminotransferase {IU/L} to non-numeric Transaminase, Heal th [Enzymatic results) Serum System activity/volume] in Serum or Plasma by With P-5'-P Albumin 3.4 Below low normal Albumin, [facility] [Mass/volume] in {gm/dl} Serum Health Serum or Plasma System I.Phosphorus 3.4 Normal (applies I. Phosphorus [facility] mg/dl to non-numeric Health results) System Alanine 15 Normal (applies Alanine [facility] aminotransferase {IU/L} to non-numeric Aminotransfer Heal th [Enzymatic results) ase, Serum System activity/volume] in Serum or Plasma Calcium 9.4 Normal (applies Calcium, [facility] [Mass/volume] in mg/dl to non-numeric Total Serum Health Serum or Plasma results) System A/GRatio 1.36 Normal (applies A/G Ratio [facility] to non-numeric Health results) System Urate 4.4 Normal (applies Uric Acid, [facility] [Mass/volume] in mg/dl to non-numeric Serum Health Serum or Plasma results) System Anion gap in Serum 8.00 Normal (applies Anion Gap [facility] savi or Plasma mmol/L to non-numeric Health results) System Glomerular 76.06 Normal (applies GFR [facility] filtration to non-numeric Health rate/1.73 sq results) System M.predicted [Volume Rate/Area] in Serum or Plasma by Creatinine-based formula (CKD-EPI) eGFR will provide clinicians with a more accurate indicator of renal function then the serum creatinine. The eGFR is automa tically calculated from an empiric formula (endorsed by the [employer] ion) which incorporates age, sex, and race.Clinicians may notice surprisingly low GFR's with serum creatinine valueswithin normal range- particularly in elderly wo men (with low muscle mass).In the hospital setting, the eGFR should add an element of safety in drug dosing, in assessing the risk of IV contrast administration, and in assessing vascular risk.The NKF staging system is as follows:Normal: eGFR >90 with no kidney markersStage 1: eGFR >90 with kidney markers*Stage 2: eGFR 60- 89Stage 3: eGFR 30-59Stage 4: eGFR 15-29Stage 5: eGFR <15 (usually requir ing dialysis)*Markers include: Proteinuria, Hematuria, abnormal imaging-studies, or other blood or urine test abnormalities ID Date Data Source [id number] 02/04/2019 04:16:09 PM EST [facility] System Name Value Range Interpretation Description Data Sup porting Code Source(s) Document(s ) TroponinIQuantitative 0.01 Normal (applies Troponin I [facility] ng/ml to non-numeric Quantitative Health results) System ID Date Data Source [id number] 02/04/2019 04:16:09 PM EST [facility] Name Value Range Interpretation Description Data Sup porting Code Source(s) Document(s ) Magnesium 1.9 Normal (applies Magnesium, [facility] [Mass/volume] {mEq/L} to non-numeric Serum Health Syst em in Serum or results) Plasma ID Date Data Source [id number] 02/04/2019 04:16:09 PM EST [facility] Name Value Range Interpretation Description Data Sup porting Code Source(s) Document(s ) Color YELLOW Normal (applies Color [facility] to non-numeric Health results) System Appearance of CLEAR Normal (applies Urine [facility] Urine to non-numeric Appearance Health results) System Specific gravity 1.010 Normal (applies Urine Specific [facility] of Urine to non-numeric [facility] results) System pH.. 6.5 Normal (applies pH.. [facility] {pH_units to non-numeric Health } results) System Glucose,UA NEGATIVE Normal (applies Glucose, UA [facility] to non-numeric Health results) System Protein NEGATIVE Normal (applies Protein [facility] [Mass/volume] in to non-numeric Health Serum or Plasma results) System BilirubinUrine NEGATIVE Normal (applies Bilirubin [facility] to non-numeric Urine Health results) System Urobilinogen 0.2 mg/dL Normal (applies Urobilinogen [facility] [Mass/volume] in to non-numeric UA Health Urine results) System Ketones NEGATIVE Normal (applies Ketones UA [facility] [Mass/volume] in to non-numeric Health Urine results) System Nitrate+Nitrite NEGATIVE Normal (applies Nitrite [facility] [Mass/volume] in to non-numeric Health Unspecified results) System specimen Leukocyte esterase NEGATIVE Normal (applies Leukocyte [facility] [Units/volume] in to non-numeric Esterase Health Urine results) Concentration System Leukocytes 0-2 Normal (applies White Blood [facility] [#/volume] in to non-numeric Cells Health Unspecified results) System specimen by Automated count RedBloodCells 3-7 Normal (applies Red Blood [facility] to non-numeric Cells Health results) System TransitionalEpithe 0-2 Normal (applies Transitional [facility] lial to non-numeric Epithelial Health results) System Epithelial cells 1-3 Normal (applies Epithelial [facility] [Presence] in to non-numeric Cells Health Unspecified results) System specimen by Wet preparation Bacteria few Normal (applies Bacteria [facility] [Presence] in to non-numeric Health Unspecified results) System specimen UrineBlood SMALL Normal (applies Urine Blood [facility] to non-numeric Health results) System ID Date Data Source [id number] 02/04/2019 04:16:09 PM EST [facility] Name Value Range Interpretation Description Data Sup porting Code Source(s) Document(s ) Prothrombintim 9.70 Normal (applies Prothrombin [facility](PT) {seconds to non-numeric time (PT) Health System } results) INR in Blood 0.94 Normal (applies INR Result [facility] by Coagulation {Ratio} to non-numeric Health Sys tem assay results) Normal = 0.7-1.1Therapeutic = 2.0-3.0Mec hanical Heart = 3.0-4.5 ID Date Data Source [id number] 02/04/2019 04:16:09 PM EST [facility] Name Value Range Interpretation Description Data Sup porting Code Source(s) Document(s ) Leukocytes 9.1 Normal (applies WBC Count [facility] [#/volume] in {10^3_uL to non-numeric Health Unspecified } results) System specimen by Automated count Erythrocytes 5.43 Above high normal RBC Count [facility] [#/volume] in {10^6_uL Health Blood by } System Automated count Hemoglobin 16.0 Normal (applies Hemoglobin [facility] [Mass/volume] in {gm/dL} to non-numeric Health Blood results) System Hematocrit 47.6 % Above high normal Hematocrit [facility] [Volume Health Fraction] of System Blood Erythrocyte mean 87.7 fl Normal (applies MCV [facility] corpuscular to non-numeric Health volume [[facility] results) System volume] by Automated count Erythrocyte mean 29.5 pg Normal (applies MCH [facility] corpuscular to non-numeric Health hemoglobin results) System [[facility] mass] by Automated count Erythrocyte mean 33.6 Normal (applies MCHC [facility] corpuscular {gm/dL} to non-numeric Health hemoglobin results) System concentration [Mass/volume] by Automated count Erythrocyte 14.9 % Above high normal RDW-CV [facility] distribution Health width [[facility] volume] by Automated count Platelets 375 Normal (applies Platelet [facility] [#/volume] in {10^3_uL to non-numeric Count Health Plasma by } results) System Automated count Platelet mean 10.9 fl Above high normal [facility] volume [[facility] volume] in Blood System by Automated count Monocytes 0.6 Normal (applies Monocyte # [facility] [#/volume] in {10^3_uL to non-numeric Health Blood by Manual } results) System count Eosinophils 0.26 Normal (applies Eosinophil # [facility] [#/volume] in {10^3_uL to non-numeric Health Blood } results) System Neutrophils 5.1 Normal (applies Neutrophil # [facility] [#/volume] in {10^3_uL to non-numeric Health Body fluid } results) System Basophils 0.02 Normal (applies Basophil # [facility] [#/volume] in {10^3_uL to non-numeric Health Blood by } results) System Automated count Lymphocyte 3.2 Normal (applies Lymphocyte # [facility] percent {10^3_uL to non-numeric Health differential } results) System count (procedure) Neutrophils/100 56.1 % Normal (applies Neutrophil % [facility] leukocytes in to non-numeric Health Blood by results) System Automated count Monocytes/100 6.1 % Normal (applies Monocyte % [facility] leukocytes in to non-numeric Health Blood results) System Eosinophils/100 2.9 % Normal (applies Eosinophil % [facility] leukocytes in to non-numeric Health Unspecified results) System specimen Basophils/100 0.2 % Normal (applies Basophil % [facility] leukocytes in to non-numeric Health Unspecified results) System specimen by Manual count Lymphocytes 34.7 % Normal (applies Lymphocyte % [facility] [#/volume] in to non-numeric Health Blood by results) System Automated count ID Date Data Source [id number] 02/04/2019 04:16:09 PM EST [facility] Name Value Range Interpretation Description Data Sup porting Code Source(s) Document(s ) Sodium 142 Normal (applies Sodium, Serum [facility] [Moles/volume] in mmol/L to non-numeric Health Serum or Plasma results) System Potassium 4.4 Normal (applies Potassium, [facility] [Mass/volume] in mmol/L to non-numeric Serum Health Serum or Plasma results) System Chloride 104 Normal (applies Chloride, [facility] [Moles/volume] in mmol/L to non-numeric Serum Health Serum or Plasma results) System Carbon dioxide, 23.0 Normal (applies CO2, Serum [facility] total mmol/L to non-numeric Health [Moles/volume] in results) System Serum or Plasma TotalProtein 8.0 Normal (applies Total Protein [facility] mg/dl to non-numeric Health results) System Glucose 92 Normal (applies Glucose, [facility] [Mass/volume] in mg/dL to non-numeric Serum Health Serum or Plasma results) System Urea nitrogen 9 mg/dl Normal (applies Blood Urea [facility] [Mass/volume] in to non-numeric Nitrogen, Health Serum or Plasma results) Serum System Creatinine 0.96 Normal (applies Creatinine, [facility] [Mass/volume] in mg/dl to non-numeric Serum Health Serum or Plasma results) System Alkaline 106 Normal (applies Alkaline [facility] phosphatase {IU/L} to non-numeric Phosphatase, Health isoenzymes results) Serum System [Enzymatic activity/volume] in Serum or Plasma by Heat stability Bilirubin.total 0.1 Below low normal Bilirubin, [facility] [Mass/volume] in mg/dl Serum Total Health Serum or Plasma System DirectBilirubin < 0.1 Normal (applies Direct [facility] to non-numeric Bilirubin Health results) System Aspartate 22 Normal (applies Aspartate [facility] aminotransferase {IU/L} to non-numeric Transaminase, Heal th [Enzymatic results) Serum System activity/volume] in Serum or Plasma by With P-5'-P Albumin 4.3 Normal (applies Albumin, [facility] [Mass/volume] in {gm/dl} to non-numeric Serum Health Serum or Plasma results) System I.Phosphorus 3.7 Normal (applies I. Phosphorus [facility] mg/dl to non-numeric Health results) System Alanine 13 Normal (applies Alanine [facility] aminotransferase {IU/L} to non-numeric Aminotransfer Heal th [Enzymatic results) ase, Serum System activity/volume] in Serum or Plasma Calcium 10.2 Normal (applies Calcium, [facility] [Mass/volume] in mg/dl to non-numeric Total Serum Health Serum or Plasma results) System A/GRatio 1.16 Normal (applies A/G Ratio [facility] to non-numeric Health results) System Urate 4.2 Normal (applies Uric Acid, [facility] [Mass/volume] in mg/dl to non-numeric Serum Health Serum or Plasma results) System Anion gap in Serum 15.00 Above high Anion Gap [facility] or Plasma mmol/L normal Health System Glomerular 61.54 Normal (applies GFR [facility] filtration to non-numeric Health rate/1.73 sq results) System M.predicted [Volume Rate/Area] in Serum or Plasma by Creatinine-based formula (CKD-EPI) eGFR will provide clinicians with a more accurate indicator of renal function then the serum creatinine. The eGFR is automa tically calculated from an empiric formula (endorsed by the [employer] ion) which incorporates age, sex, and race.Clinicians may notice surprisingly low GFR's with serum creatinine valueswithin normal range- particularly in elderly wo men (with low muscle mass).In the hospital setting, the eGFR should add an element of safety in drug dosing, in assessing the risk of IV contrast administration, and in assessing vascular risk.The NKF staging system is as follows:Normal: eGFR >90 with no kidney markersStage 1: eGFR >90 with kidney markers*Stage 2: eGFR 60- 89Stage 3: eGFR 30-59Stage 4: eGFR 15-29Stage 5: eGFR <15 (usually requir ing dialysis)*Markers include: Proteinuria, Hematuria, abnormal imaging-studies, or other blood or urine test abnormalities ID Date Data Source [id number] 02/04/2019 04:16:09 PM EST [facility] System Name Value Range Interpretation Description Data Sup porting Code Source(s) Document(s ) TroponinIQuantitative 0.01 Normal (applies Troponin I [facility] ng/ml to non-numeric Quantitative Health results) System ID Date Data Source [id number] 02/04/2019 04:16:09 PM EST [facility] System Name Value Range Interpretation Description Data Sup porting Code Source(s) Document(s ) Amphetamine Negative Normal (applies Amphetamine [facility] [Mass/volume] to non-numeric Level, Urine Health in Urine results) System Cut-off = 1000 ng/mL Barbiturates Negative Normal (applies to Barbiturate [facility] [Mass/volume] in non-numeric Screen, Urine Health System Urine by Screen results) method Cut-off = 200 ng/mL Benzodiazepines Negative Normal (applies Benzodiazepines, [facility] [Mass/volume] in to non-numeric Urine Health S ystem Urine results) Cut-off = 200 ng/mL Cocaine Negative Normal (applies Cocaine [facility] metabolites.other to non-numeric Metabolite Health System [Mass/volume] in Urine results) Screen, Urine Cut-off = 300 ng/mL Methadone Negative Normal (applies to Methadone Level, [facility] [Mass/volume] in non-numeric Urine System Urine results) Cut-off = 300 ng/mL [id number],Urine Negative Normal (applies to Opiate 300, [facility] non[facility]numeric results) Urine System Cut-off = 300 ng/mL Phencyclidine Negative Normal (applies Phencyclidine, Urine [facility] [Mass/volume] in to non-numeric Health [facility] Urine results) Cut-off = 25 ng/mL THC Negative Normal (applies to non-numeric resul ts) THC [facility] Health System Cutt-off = 50These results are for medic al treatment only. The positive findings are unconfirmed. Request confirmatory/quanti tative test if needed. ID Date Data Source [id number] 02/04/2019 04:16:09 PM EST [facility] System Name Value Range Interpretation Description Data Sup porting Code Source(s) Document(s ) Triglyceride 55 mg/dl Normal (applies Triglycerides, [facility] [Mass/volume] to non-numeric Serum Health in Serum or results) System Plasma Optimal = < 100 mg/dLBoderline High = 15 0 - 199 mg/dLHigh = 200 - 499 mg/dLVery High = > 500 mg/dL Cholesterol 157 mg/dl Normal (applies Cholesterol, Serum [facility] [Mass/volume] in to non-numeric Health [facility] Serum or Plasma results) <200 mg/dL = [id number] - 239 md/dL = Borderline>240 mg/dL = High Risk Cholesterol in HDL 59.0 mg/dL Normal (applies HDL Cholestero l, [facility] [Mass/volume] in to non-numeric Serum Health [facility] Serum or Plasma results) Cholesterol in LDL 87 mg/dL Normal (applies Low Density [facility] [Mass/volume] in to non-numeric Lipoprotein, Healt h System Serum or Plasma results) Calculated OPTIMAL: LESS THAN 100 mg/dLNEAR OPTIMAL : 100 - 129 mg/dLBODERLINE HIGH: 130 - 150 mg/dL Cholesterol in VLDL 11 Normal (applies to VLDL, Serum [facility] Health [Mass/volume] in Serum non-numeric results) System or Plasma CHDRisk 2.66 Normal (applies to CHD Risk [facility] non-numeric results) System ID Date Data Source [id number] 02/04/2019 04:16:09 PM EST [facility] Name Value Range Interpretation Description Data Sup porting Code Source(s) Document(s ) Leukocytes 10.8 Normal (applies WBC Count [facility] [#/volume] in {10^3_uL to non-numeric Health Unspecified } results) System specimen by Automated count Erythrocytes 5.38 Above high normal RBC Count [facility] [#/volume] in {10^6_uL Health Blood by } System Automated count Hemoglobin 15.5 Normal (applies Hemoglobin [facility] [Mass/volume] in {gm/dL} to non-numeric Health Blood results) System Hematocrit 46.3 % Above high normal Hematocrit [facility] [Volume Health Fraction] of System Blood Erythrocyte mean 86.1 fl Normal (applies MCV [facility] corpuscular to non-numeric Health volume [Ent[facility] results) System volume] by Automated count Erythrocyte mean 28.8 pg Normal (applies MCH [facility] corpuscular to non-numeric Health hemoglobin results) System [[facility] mass] by Automated count Erythrocyte mean 33.5 Normal (applies MCHC [facility] corpuscular {gm/dL} to non-numeric Health hemoglobin results) System concentration [Mass/volume] by Automated count Erythrocyte 15.3 % Above high normal RDW-CV [facility] distribution Health width [[facility] System volume] by Automated count Platelets 382 Normal (applies Platelet [facility] [#/volume] in {10^3_uL to non-numeric Count Health Plasma by } results) System Automated count Platelet mean 10.7 fl Above high normal MPV [facility] volume [[facility] volume] in Blood System by Automated count Monocytes 0.6 Normal (applies Monocyte # [facility] [#/volume] in {10^3_uL to non-numeric Health Blood by Manual } results) System count Eosinophils 0.09 Normal (applies Eosinophil # [facility] [#/volume] in {10^3_uL to non-numeric Health Blood } results) System Neutrophils 7.4 Normal (applies Neutrophil # [facility] [#/volume] in {10^3_uL to non-numeric Health Body fluid } results) System Basophils 0.03 Normal (applies Basophil # [facility] [#/volume] in {10^3_uL to non-numeric Health Blood by } results) System Automated count Lymphocyte 2.6 Normal (applies Lymphocyte # [facility] percent {10^3_uL to non-numeric Health differential } results) System count (procedure) Neutrophils/100 68.6 % Normal (applies Neutrophil % [facility]i leukocytes in to non-numeric Health Blood by results) System Automated count Monocytes/100 5.8 % Below low normal Monocyte % [facility] leukocytes in Health Blood System Eosinophils/100 0.8 % Below low normal Eosinophil % [facility] leukocytes in Health Unspecified System specimen Basophils/100 0.3 % Normal (applies Basophil % [facility] leukocytes in to non-numeric Health Unspecified results) System specimen by Manual count Lymphocytes 24.5 % Normal (applies Lymphocyte % [facility] [#/volume] in to non-numeric Health Blood by results) System Automated count ID Date Data Source [id number] 02/04/2019 04:16:09 PM EST [facility] Name Value Range Interpretation Description Data Sup porting Code Source(s) Document(s ) Thyrotropin 1.663 Normal (applies Thyroid [facility] [Mass/volume] {mIU/mL} to non-numeric Stimulating Health Sy stem in Serum or results) Hormone, Serum Plasma ID Date Data Source [id number] 02/04/2019 04:16:09 PM EST [facility] System Name Value Range Interpretation Description Data Sup porting Code Source(s) Document(s ) Sodium 140 Normal (applies Sodium, Serum [facility] [Moles/volume] in mmol/L to non-numeric Health Serum or Plasma results) System Potassium 3.9 Normal (applies Potassium, [facility] [Mass/volume] in mmol/L to non-numeric Serum Health Serum or Plasma results) System Chloride 106 Normal (applies Chloride, [facility] [Moles/volume] in mmol/L to non-numeric Serum Health Serum or Plasma results) System Carbon dioxide, 23.0 Normal (applies CO2, Serum [facility] total mmol/L to non-numeric Health [Moles/volume] in results) System Serum or Plasma TotalProtein 7.4 Normal (applies Total Protein [facility] mg/dl to non-numeric Health results) System Glucose 132 Above high Glucose, [facility] [Mass/volume] in mg/dL normal Serum Health Serum or Plasma System Urea nitrogen 9 mg/dl Normal (applies Blood Urea [facility] [Mass/volume] in to non-numeric Nitrogen, Health Serum or Plasma results) Serum System Creatinine 1.10 Normal (applies Creatinine, [facility] [Mass/volume] in mg/dl to non-numeric Serum Health Serum or Plasma results) System Alkaline 107 Normal (applies Alkaline [facility] phosphatase {IU/L} to non-numeric Phosphatase, Health isoenzymes results) Serum System [Enzymatic activity/volume] in Serum or Plasma by Heat stability Bilirubin.total 0.4 Normal (applies Bilirubin, [facility] [Mass/volume] in mg/dl to non-numeric Serum Total Health Serum or Plasma results) System DirectBilirubin 0.2 Normal (applies Direct [facility] mg/dl to non-numeric Bilirubin Health results) System Aspartate 17 Normal (applies Aspartate [facility] aminotransferase {IU/L} to non-numeric Transaminase, Heal th [Enzymatic results) Serum System activity/volume] in Serum or Plasma by With P-5'-P Albumin 4.3 Normal (applies Albumin, [facility] [Mass/volume] in {gm/dl} to non-numeric Serum Health Serum or Plasma results) System I.Phosphorus 3.9 Normal (applies I. Phosphorus [facility] mg/dl to non-numeric Health results) System Alanine 9 Normal (applies Alanine [facility] aminotransferase {IU/L} to non-numeric Aminotransfer Heal th [Enzymatic results) ase, Serum System activity/volume] in Serum or Plasma Calcium 11.0 Above high Calcium, [facility] [Mass/volume] in mg/dl normal Total Serum Health Serum or Plasma System A/GRatio 1.39 Normal (applies A/G Ratio [facility] to non-numeric Health results) System Urate 5.7 Normal (applies Uric Acid, [facility] [Mass/volume] in mg/dl to non-numeric Serum Health Serum or Plasma results) System Anion gap in Serum 11.00 Normal (applies Anion Gap [facility] or Plasma mmol/L to non-numeric Health results) System Glomerular 52.57 Normal (applies GFR [facility] filtration to non-numeric Health rate/1.73 sq results) System M.predicted [Volume Rate/Area] in Serum or Plasma by Creatinine-based formula (CKD-EPI) eGFR will provide clinicians with a more accurate indicator of renal function then the serum creatinine. The eGFR is automa tically calculated from an empiric formula (endorsed by the [employer]) which incorporates age, sex, and race.Clinicians may notice surprisingly low GFR's with serum creatinine valueswithin normal range- particularly in elderly wo men (with low muscle mass).In the hospital setting, the eGFR should add an element of safety in drug dosing, in assessing the risk of IV contrast administration, and in assessing vascular risk.The NKF staging system is as follows:Normal: eGFR >90 with no kidney markersStage 1: eGFR >90 with kidney markers*Stage 2: eGFR 60- 89Stage 3: eGFR 30-59Stage 4: eGFR 15-29Stage 5: eGFR <15 (usually requir ing dialysis)*Markers include: Proteinuria, Hematuria, abnormal imaging-studies, or other blood or urine test abnormalities ID Date Data Source [id number] 02/04/2019 04:16:09 PM EST [facility] System Name Value Range Interpretation Description Data Sup porting Code Source(s) Document(s ) TroponinIQuantitative 0.01 Normal (applies Troponin I [facility] ng/ml to non-numeric Quantitative Health results) System ID Date Data Source [id number] 02/04/2019 04:16:09 PM EST [facility] System Name Value Range Interpretation Description Data Sup porting Code Source(s) Document(s ) Creatine 312 Above high normal Creatine [facility] kinase.MB {IU/L} Kinase, Serum Health System [Mass/volume ] in Serum or Plasma ID Date Data Source [id number] 02/04/2019 04:16:09 PM EST [facility] Name Value Range Interpretation Description Data Sup porting Code Source(s) Document(s ) Prothrombintim 10.00 Normal (applies Prothrombin [facility] e(PT) {seconds to non-numeric time (PT) Health System } results) INR in Blood 0.99 Normal (applies INR Result [facility] by Coagulation {Ratio} to non-numeric Health Sys tem assay results) Normal = 0.7-1.1Therapeutic = 2.0-3.0Mec hanical Heart = 3.0-4.5 ID Date Data Source [id number] 02/04/2019 04:16:09 PM EST [facility] Name Value Range Interpretation Description Data Sup porting Code Source(s) Document(s ) Leukocytes 11.6 Above high normal WBC Count [facility] [#/volume] in {10^3_uL Health Unspecified } System specimen by Automated count Erythrocytes 5.19 Normal (applies RBC Count [facility] [#/volume] in {10^6_uL to non-numeric Health Blood by } results) System Automated count Hemoglobin 15.0 Normal (applies Hemoglobin [facility] [Mass/volume] in {gm/dL} to non-numeric Health Blood results) System Hematocrit 45.6 % Normal (applies Hematocrit [facility] [Volume to non-numeric Health Fraction] of results) System Blood Erythrocyte mean 87.9 fl Normal (applies MCV [facility] corpuscular to non-numeric Health volume [Entitic results) System volume] by Automated count Erythrocyte mean 28.9 pg Normal (applies MCH [facility] corpuscular to non-numeric Health hemoglobin results) System [Entitic mass] by Automated count Erythrocyte mean 32.9 Below low normal MCHC [facility] corpuscular {gm/dL} Health hemoglobin System concentration [Mass/volume] by Automated count Erythrocyte 14.7 % Above high normal RDW-CV [facility] distribution Health width [Entitic System volume] by Automated count Platelets 382 Normal (applies Platelet [facility] [#/volume] in {10^3_uL to non-numeric Count Health Plasma by } results) System Automated count Platelet mean 10.8 fl Above high normal MPV [facility] volume [Entitic Health volume] in Blood System by Automated count Monocytes 0.7 Normal (applies Monocyte # [facility] [#/volume] in {10^3_uL to non-numeric Health Blood by Manual } results) System count Eosinophils 0.09 Normal (applies Eosinophil # [facility] [#/volume] in {10^3_uL to non-numeric Health Blood } results) System Neutrophils 8.8 Above high normal Neutrophil # [facility] [#/volume] in {10^3_uL Health Body fluid } System Basophils 0.02 Normal (applies Basophil # [facility] [#/volume] in {10^3_uL to non-numeric Health Blood by } results) System Automated count Lymphocyte 2.1 Normal (applies Lymphocyte # [facility] percent {10^3_uL to non-numeric Health differential } results) System count (procedure) Neutrophils/100 75.3 % Above high normal Neutrophil % [facility] leukocytes in Health Blood by System Automated count Monocytes/100 5.7 % Below low normal Monocyte % [facility] leukocytes in Health Blood System Eosinophils/100 0.8 % Normal (applies Eosinophil % [facility] leukocytes in to non-numeric Health Unspecified results) System specimen Basophils/100 0.2 % Normal (applies Basophil % [facility] leukocytes in to non-numeric Health Unspecified results) System specimen by Manual count Lymphocytes 18.0 % Below low normal Lymphocyte % [facility] [#/volume] in Health Blood by System Automated count ID Date Data Source [id number] 02/04/2019 04:16:09 PM EST [facility] Name Value Range Interpretation Description Data Sup porting Code Source(s) Document(s ) TroponinIQuantitative 0.01 Normal (applies Troponin I [facility] ng/ml to non-numeric Quantitative Health results) System ID Date Data Source [id number] 02/04/2019 04:16:09 PM EST [facility] Name Value Range Interpretation Description Data Sup porting Code Source(s) Document(s ) Creatine 147 Above high normal Creatine [facility] kinase.MB {IU/L} Kinase, Serum Health System [Mass/volume ] in Serum or Plasma ID Date Data Source [id number] 02/04/2019 04:16:09 PM EST [facility] Name Value Range Interpretation Description Data Sup porting Code Source(s) Document(s ) hCGQuantitative < 5 Normal (applies hCG [facility] to non-numeric Quantitative Health results) System Negative = <5 mIU/mLAPPROXIMATE GEST. AG E APPROXIMATE HCG mIU/ML 0.2 - 1 week 5 - 50 1 - 2 w eeks 50 - 500 2 - 3 weeks 100 - 5,000 3 - 4 weeks 500 - 10,000 4 - 5 weeks 1,000 - 50,000 5 - 6 weeks 10,000 - 100,000 6 - 8 weeks 15,000 - 200,000 8 - 12 weeks 10,000 - 1 00,000HCG levels between 5-25 mIU/mL may be indicative of early . Correlati on with other clinical findings and/or repeat of HCG quantitative testing recommened. ID Date Data Source [id number] 02/04/2019 04:16:09 PM EST [facility] Name Value Range Interpretation Description Data Sup porting Code Source(s) Document(s ) Sodium 140 Normal (applies Sodium, Serum [facility] [Moles/volume] in mmol/L to non-numeric Health Serum or Plasma results) System Potassium 4.1 Normal (applies Potassium, [facility] [Mass/volume] in mmol/L to non-numeric Serum Health Serum or Plasma results) System Chloride 106 Normal (applies Chloride, [facility] [Moles/volume] in mmol/L to non-numeric Serum Health Serum or Plasma results) System Carbon dioxide, 22.0 Normal (applies CO2, Serum [facility] total mmol/L to non-numeric Health [Moles/volume] in results) System Serum or Plasma TotalProtein 7.5 Normal (applies Total Protein [facility] mg/dl to non-numeric Health results) System Glucose 96 Normal (applies Glucose, [facility] [Mass/volume] in mg/dL to non-numeric Serum Health Serum or Plasma results) System Urea nitrogen 18 Normal (applies Blood Urea [facility] [Mass/volume] in mg/dl to non-numeric Nitrogen, Health Serum or Plasma results) Serum System Creatinine 1.00 Normal (applies Creatinine, [facility] [Mass/volume] in mg/dl to non-numeric Serum Health Serum or Plasma results) System Alkaline 148 Above high Alkaline [facility] phosphatase {IU/L} normal Phosphatase, Health isoenzymes Serum System [Enzymatic activity/volume] in Serum or Plasma by Heat stability Bilirubin.total 0.2 Normal (applies Bilirubin, [facility] [Mass/volume] in mg/dl to non-numeric Serum Total Health Serum or Plasma results) System DirectBilirubin 0.1 Normal (applies Direct [facility] mg/dl to non-numeric Bilirubin Health results) System Aspartate 15 Normal (applies Aspartate [facility] aminotransferase {IU/L} to non-numeric Transaminase, Heal th [Enzymatic results) Serum System activity/volume] in Serum or Plasma by With P-5'-P Albumin 4.8 Normal (applies Albumin, [facility] [Mass/volume] in {gm/dl} to non-numeric Serum Health Serum or Plasma results) System I.Phosphorus 4.1 Normal (applies I. Phosphorus [facility] mg/dl to non-numeric Health results) System Alanine 15 Normal (applies Alanine [facility] aminotransferase {IU/L} to non-numeric Aminotransfer Heal th [Enzymatic results) ase, Serum System activity/volume] in Serum or Plasma Calcium 11.2 Above high Calcium, [facility] [Mass/volume] in mg/dl normal Total Serum Health Serum or Plasma System A/GRatio 1.78 Normal (applies A/G Ratio [facility] to non-numeric Health results) System Urate 6.5 Normal (applies Uric Acid, [facility] [Mass/volume] in mg/dl to non-numeric Serum Health Serum or Plasma results) System Anion gap in Serum 12.00 Normal (applies Anion Gap [facility] or Plasma mmol/L to non-numeric Health results) System Glomerular 58.58 Normal (applies GFR [facility] filtration to non-numeric Health rate/1.73 sq results) System M.predicted [Volume Rate/Area] in Serum or Plasma by Creatinine-based formula (CKD-EPI) eGFR will provide clinicians with a more accurate indicator of renal function then the serum creatinine. The eGFR is automa tically calculated from an empiric formula (endorsed by the [employer]) which incorporates age, sex, and race.Clinicians may notice surprisingly low GFR's with serum creatinine valueswithin normal range- particularly in elderly wo men (with low muscle mass).In the hospital setting, the eGFR should add an element of safety in drug dosing, in assessing the risk of IV contrast administration, and in assessing vascular risk.The NKF staging system is as follows:Normal: eGFR >90 with no kidney markersStage 1: eGFR >90 with kidney markers*Stage 2: eGFR 60- 89Stage 3: eGFR 30-59Stage 4: eGFR 15-29Stage 5: eGFR <15 (usually requir ing dialysis)*Markers include: Proteinuria, Hematuria, abnormal imaging-studies, or other blood or urine test abnormalities ID Date Data Source [id number] 02/04/2019 04:16:09 PM EST [facility] Name Value Range Interpretation Description Data Sup porting Code Source(s) Document(s ) AlcoholE non detected Normal (applies to Alcohol Ethyl, [facility] thyl,Blo None non-numeric Blood Health System od Detected results) ID Date Data Source [id number] 02/04/2019 04:16:09 PM EST [facility] Name Value Range Interpretation Description Data Sup porting Code Source(s) Document(s ) Sodium 141 Normal (applies Sodium, Serum [facility] [Moles/volume] in mmol/L to non-numeric Health Serum or Plasma results) System Potassium 4.4 Normal (applies Potassium, [facility] [Mass/volume] in mmol/L to non-numeric Serum Health Serum or Plasma results) System Chloride 110 Above high Chloride, [facility] [Moles/volume] in mmol/L normal Serum Health Serum or Plasma System Carbon dioxide, 20.0 Below low normal CO2, Serum [facility] total mmol/L Health [Moles/volume] in System Serum or Plasma TotalProtein 6.5 Normal (applies Total Protein [facility] mg/dl to non-numeric Health results) System Glucose 97 Normal (applies Glucose, [facility] [Mass/volume] in mg/dL to non-numeric Serum Health Serum or Plasma results) System Urea nitrogen 10 Normal (applies Blood Urea [facility] [Mass/volume] in mg/dl to non-numeric Nitrogen, Health Serum or Plasma results) Serum System Creatinine 0.72 Normal (applies Creatinine, [facility] [Mass/volume] in mg/dl to non-numeric Serum Health Serum or Plasma results) System Alkaline 130 Above high Alkaline [facility] phosphatase {IU/L} normal Phosphatase, Health isoenzymes Serum System [Enzymatic activity/volume] in Serum or Plasma by Heat stability Bilirubin.total 0.3 Normal (applies Bilirubin, [facility] [Mass/volume] in mg/dl to non-numeric Serum Total Health Serum or Plasma results) System DirectBilirubin 0.2 Normal (applies Direct [facility] mg/dl to non-numeric Bilirubin Health results) System Aspartate 20 Normal (applies Aspartate [facility] aminotransferase {IU/L} to non-numeric Transaminase, Heal th [Enzymatic results) Serum System activity/volume] in Serum or Plasma by With P-5'-P Albumin 4.0 Normal (applies Albumin, [facility] [Mass/volume] in {gm/dl} to non-numeric Serum Health Serum or Plasma results) System I.Phosphorus 3.2 Normal (applies I. Phosphorus [facility] mg/dl to non-numeric Health results) System Alanine 17 Normal (applies Alanine [facility] aminotransferase {IU/L} to non-numeric Aminotransfer Heal th [Enzymatic results) ase, Serum System activity/volume] in Serum or Plasma Calcium 9.9 Normal (applies Calcium, [facility] [Mass/volume] in mg/dl to non-numeric Total Serum Health Serum or Plasma results) System A/GRatio 1.60 Normal (applies A/G Ratio [facility] to non-numeric Health results) System Urate 5.8 Normal (applies Uric Acid, [facility] [Mass/volume] in mg/dl to non-numeric Serum Health Serum or Plasma results) System Anion gap in Serum 11.00 Normal (applies Anion Gap [facility] or Plasma mmol/L to non-numeric Health results) System Glomerular 85.57 Normal (applies GFR [facility] filtration to non-numeric Health rate/1.73 sq results) System M.predicted [Volume Rate/Area] in Serum or Plasma by Creatinine-based formula (CKD-EPI) eGFR will provide clinicians with a more accurate indicator of renal function then the serum creatinine. The eGFR is automa tically calculated from an empiric formula (endorsed by the [employer]) which incorporates age, sex, and race.Clinicians may notice surprisingly low GFR's with serum creatinine valueswithin normal range- particularly in elderly wo men (with low muscle mass).In the hospital setting, the eGFR should add an element of safety in drug dosing, in assessing the risk of IV contrast administration, and in assessing vascular risk.The NKF staging system is as follows:Normal: eGFR >90 with no kidney markersStage 1: eGFR >90 with kidney markers*Stage 2: eGFR 60- 89Stage 3: eGFR 30-59Stage 4: eGFR 15-29Stage 5: eGFR <15 (usually requir ing dialysis)*Markers include: Proteinuria, Hematuria, abnormal imaging-studies, or other blood or urine test abnormalities ID Date Data Source [id number] 02/04/2019 04:16:09 PM EST [facility] Name Value Range Interpretation Description Data Sup porting Code Source(s) Document(s ) Phenobarbital < 1.10 Below low normal Phenobarbital [facility] [Mass/volume] in Level, Serum Health Serum or Plasma System ID Date Data Source [id number] 02/04/2019 04:16:09 PM EST [facility] Name Value Range Interpretation Description Data Sup porting Code Source(s) Document(s ) AlcoholE None Detected Normal (applies Alcohol Ethyl, [facility] thyl,Blo Reference to non-numeric Blood Health System od Range: None results) Detected ID Date Data Source [id number] 02/04/2019 04:16:09 PM EST [facility] Name Value Range Interpretation Description Data Sup porting Code Source(s) Document(s ) Leukocytes 9.2 Normal (applies WBC Count [facility] [#/volume] in {10^3_uL} to non-numeric Health Unspecified results) System specimen by Automated count Erythrocytes 5.57 Above high RBC Count [facility] [#/volume] in {10^6_uL} normal Health Blood by Automated System count Hemoglobin 15.7 Normal (applies Hemoglobin [facility] [Mass/volume] in {gm/dL} to non-numeric Health Blood results) System Hematocrit [Volume 49.4 % Above high Hematocrit [facility] Fraction] of Blood normal Health System Erythrocyte mean 88.7 fl Normal (applies MCV [facility] corpuscular volume to non-numeric Health [Entitic volume] results) System by Automated count Erythrocyte mean 28.2 pg Normal (applies MCH [facility] corpuscular to non-numeric Health hemoglobin results) System [Entitic mass] by Automated count Erythrocyte mean 31.8 Normal (applies MCHC [facility] corpuscular {gm/dL} to non-numeric Health hemoglobin results) System concentration [Mass/volume] by Automated count Erythrocyte 14.3 % Normal (applies RDW-CV [facility] distribution width to non-numeric Health [Entitic volume] results) System by Automated count Platelets 334 Normal (applies Platelet [facility] [#/volume] in {10^3_uL} to non-numeric Count Health Plasma by results) System Automated count ImmaturePlateletFr Cancelled Immature [facility] action Unable to Platelet Health read. Fraction System Abnormal platelet distributi on. Platelet mean 10.4 fl Normal (applies MPV [facility] volume [Entitic to non-numeric Health volume] in Blood results) System by Automated count Nucleated 0.0 Normal (applies NRBC % [facility] erythrocytes {/100_WBC} to non-numeric Health [#/volume] in Body results) System fluid NRBC# 0.00 Normal (applies NRBC # [facility] {10^3_uL} to non-numeric Health results) System Neutrophils/100 42.2 % Below low Neutrophil % [facility] leukocytes in normal Health Blood by Automated System count Neutrophils 3.9 Normal (applies Neutrophil # [facility] [#/volume] in Body {10^3_uL} to non-numeric Health fluid results) System Lymphocytes 48.2 % Above high Lymphocyte % [facility] [#/volume] in normal Health Blood by Automated System count Lymphocyte percent 4.4 Normal (applies Lymphocyte # [facility] differential count {10^3_uL} to non-numeric Health (procedure) results) System Monocytes/100 7.0 % Normal (applies Monocyte % [facility] leukocytes in to non-numeric Health Blood results) System Monocytes 0.6 Normal (applies Monocyte # [facility] [#/volume] in {10^3_uL} to non-numeric Health Blood by Manual results) System count Eosinophils/100 1.5 % Normal (applies Eosinophil % [facility] leukocytes in to non-numeric Health Unspecified results) System specimen Eosinophils 0.14 Normal (applies Eosinophil # [facility] [#/volume] in {10^3_uL} to non-numeric Health Blood results) System Basophils/100 0.8 % Normal (applies Basophil % [facility] leukocytes in to non-numeric Health Unspecified results) System specimen by Manual count Basophils 0.07 Normal (applies Basophil # [facility] [#/volume] in {10^3_uL} to non-numeric Health Blood by Automated results) System count ImmatureGranulocyt 0.03 Normal (applies Immature [facility] es# {10^3_uL} to non-numeric Granulocytes Health results) # System ImmatureGranulocyt 0.3 % Normal (applies Immature [facility] es% to non-numeric Granulocytes Health results) % System ID Date Data Source [id number] 02/04/2019 04:16:09 PM EST [facility] Name Value Range Interpretation Description Data Sup porting Code Source(s) Document(s ) TroponinIQuantitative 0.01 Normal (applies Troponin I [facility] ng/ml to non-numeric Quantitative Health results) System Detection of a rise and/or fall of cardi ac troponin I above the cut-off of 0.03 ng/mL is consistent with myocardial infarction in the appropriate clinical setting. With the use of lower cut-offs, testing of se rial samples is required for diagnosis. ID Date Data Source [id number] 02/04/2019 04:16:09 PM EST [facility] Name Value Range Interpretation Description Data Sup porting Code Source(s) Document(s ) Triglyceride 96 mg/dl Normal (applies Triglycerides, [facility] [Mass/volume] to non-numeric Serum Health in Serum or results) System Plasma Optimal = < 100 mg/dLBoderline High = 15 0 - 199 mg/dLHigh = 200 - 499 mg/dLVery High = > 500 mg/dL Cholesterol 171 mg/dl Normal (applies Cholesterol, Serum [facility] [Mass/volume] in to non-numeric Health S yste Serum or Plasma results) <200 mg/us=[id number] mg/dl=border line>240 mg/dl=elevated Cholesterol in HDL 66.8 mg/dL Normal (applies HDL Cholestero l, [facility] [Mass/volume] in to non-numeric Serum Health S yste Serum or Plasma results) Cholesterol in LDL 85 mg/dL Normal (applies Low Density [facility] [Mass/volume] in to non-numeric Lipoprotein, Healt h System Serum or Plasma results) Calculated OPTIMAL: LESS THAN 100 mg/dLNEAR OPTIMAL : 100 - 129 mg/dLBODERLINE HIGH: 130 - 150 mg/dL Cholesterol in VLDL 19.2 Normal (applies to VLDL, Serum [facility] [Mass/volume] in Serum non-numeric results) System or Plasma CHDRisk 2.56 Normal (applies to [facility] non-numeric results) System Lowest <2.9Low 3.0 - 3.6Moderate 3 .7 - 4.6High 4.7 - 5.6Highest >=5.7 ID Date Data Source [id number] 02/04/2019 04:16:09 PM [facility] System Name Value Range Interpretation Description Data Sup porting Code Source(s) Document(s ) Sodium 137 Normal (applies Sodium, Serum [facility] [Moles/volume] in mmol/L to non-numeric Health Serum or Plasma results) System Potassium 3.9 Normal (applies Potassium, [facility] [Mass/volume] in mmol/L to non-numeric Serum Health Serum or Plasma results) System Chloride 102 Normal (applies Chloride, [facility] [Moles/volume] in mmol/L to non-numeric Serum Health Serum or Plasma results) System Carbon dioxide, 28.0 Normal (applies CO2, Serum [facility] total mmol/L to non-numeric Health [Moles/volume] in results) System Serum or Plasma TotalProtein 6.5 Normal (applies Total Protein [facility] mg/dl to non-numeric Health results) System Glucose 150 Above high Glucose, [facility] [Mass/volume] in mg/dL normal Serum Health Serum or Plasma System Urea nitrogen 7 mg/dl Normal (applies Blood Urea [facility] [Mass/volume] in to non-numeric Nitrogen, Health Serum or Plasma results) Serum System Creatinine 0.78 Normal (applies Creatinine, [facility] [Mass/volume] in mg/dl to non-numeric Serum Health Serum or Plasma results) System Alkaline 113 Normal (applies Alkaline [facility] phosphatase {IU/L} to non-numeric Phosphatase, Health isoenzymes results) Serum System [Enzymatic activity/volume] in Serum or Plasma by Heat stability Bilirubin.total 0.2 Normal (applies Bilirubin, [facility] [Mass/volume] in mg/dl to non-numeric Serum Total Health Serum or Plasma results) System DirectBilirubin 0.0 Normal (applies Direct [facility] mg/dl to non-numeric Bilirubin Health results) System Aspartate 17 Normal (applies Aspartate [facility] aminotransferase {IU/L} to non-numeric Transaminase, Heal th [Enzymatic results) Serum System activity/volume] in Serum or Plasma by With P-5'-P Albumin 4.0 Normal (applies Albumin, [facility] [Mass/volume] in {gm/dl} to non-numeric Serum Health Serum or Plasma results) System I.Phosphorus 3.8 Normal (applies I. Phosphorus [facility] mg/dl to non-numeric Health results) System Alanine 17 Normal (applies Alanine [facility] aminotransferase {IU/L} to non-numeric Aminotransfer Heal th [Enzymatic results) ase, Serum System activity/volume] in Serum or Plasma Calcium 10.0 Normal (applies Calcium, [facility] [Mass/volume] in mg/dl to non-numeric Total Serum Health Serum or Plasma results) System A/GRatio 1.60 Normal (applies A/G Ratio [facility] to non-numeric Health results) System Urate 6.5 Normal (applies Uric Acid, [facility] [Mass/volume] in mg/dl to non-numeric Serum Health Serum or Plasma results) System Anion gap in Serum 7.00 Normal (applies Anion Gap [facility] or Plasma mmol/L to non-numeric Health results) System Glomerular 77.05 Normal (applies GFR [facility] filtration to non-numeric Health rate/1.73 sq results) System M.predicted [Volume Rate/Area] in Serum or Plasma by Creatinine-based formula (CKD-EPI) eGFR will provide clinicians with a more accurate indicator of renal function then the serum creatinine. The eGFR is automa tically calculated from an empiric formula (endorsed by the [employer]) which incorporates age, sex, and race.Clinicians may notice surprisingly low GFR's with serum creatinine valueswithin normal range- particularly in elderly wo men (with low muscle mass).In the hospital setting, the eGFR should add an element of safety in drug dosing, in assessing the risk of IV contrast administration, and in assessing vascular risk.The NKF staging system is as follows:Normal: eGFR >90 with no kidney markersStage 1: eGFR >90 with kidney markers*Stage 2: eGFR 60- 89Stage 3: eGFR 30-59Stage 4: eGFR 15-29Stage 5: eGFR <15 (usually requir ing dialysis)*Markers include: Proteinuria, Hematuria, abnormal imaging-studies, or other blood or urine test abnormalities ID Date Data Source [id number] 02/04/2019 04:16:09 PM EST [facility] Name Value Range Interpretation Description Data Sup porting Code Source(s) Document(s ) Prothrombintim 10.40 Normal (applies Prothrombin [facility](PT) {seconds to non-numeric time (PT) Health System } results) INR in Blood 0.90 Normal (applies INR Result [facility] by Coagulation {Ratio} to non-numeric Health Sys tem assay results) Normal = 0.7-1.1Therapeutic = 2.0-3.0Mec hanical Heart = 3.0-4.5 ID Date Data Source [id number] 02/04/2019 04:16:09 PM [facility] Name Value Range Interpretation Description Data Sup porting Code Source(s) Document(s ) Phenytoin 6.3 Below low normal Phenytoin [facility] [Mass/volume] ug/ml Level, Serum Health System in Serum or Plasma ID Date Data Source [id number] 02/04/2019 04:16:09 PM EST [facility] Name Value Range Interpretation Description Data Sup porting Code Source(s) Document(s ) Leukocytes 7.4 Normal (applies WBC Count [facility] [#/volume] in {10^3_uL to non-numeric Health Unspecified } results) System specimen by Automated count Erythrocytes 5.81 Above high RBC Count [facility] [#/volume] in {10^6_uL normal Health Blood by } System Automated count Hemoglobin 16.3 Above high Hemoglobin [facility] [Mass/volume] in {gm/dL} normal Health Blood System Hematocrit 51.2 % Above high Hematocrit [facility] [Volume normal Health Fraction] of System Blood Erythrocyte mean 88.1 fl Normal (applies MCV [facility] corpuscular to non-numeric Health volume [Entitic results) System volume] by Automated count Erythrocyte mean 28.1 pg Normal (applies MCH [facility] corpuscular to non-numeric Health hemoglobin results) System [Entitic mass] by Automated count Erythrocyte mean 31.8 Normal (applies MCHC [facility] corpuscular {gm/dL} to non-numeric Health hemoglobin results) System concentration [Mass/volume] by Automated count Erythrocyte 14.8 % Above high RDW-CV [facility] distribution normal Health width [Entitic System volume] by Automated count Platelets 315 Normal (applies Platelet Count [facility] [#/volume] in {10^3_uL to non-numeric Health Plasma by } results) System Automated count Platelet mean 11.0 fl Normal (applies MPV [facility] volume [Entitic to non-numeric Health volume] in Blood results) System by Automated count Nucleated 0.0 Normal (applies NRBC % [facility] erythrocytes {/100_WB to non-numeric Health [#/volume] in C} results) System Body fluid NRBC# 0.00 Normal (applies NRBC # [facility] {10^3_uL to non-numeric Health } results) System Neutrophils/100 48.8 % Below low normal Neutrophil % [facility] leukocytes in Health Blood by System Automated count Neutrophils 3.6 Normal (applies Neutrophil # [facility] [#/volume] in {10^3_uL to non-numeric Health Body fluid } results) System Lymphocytes 41.2 % Above high Lymphocyte % [facility] [#/volume] in normal Health Blood by System Automated count Lymphocyte 3.1 Normal (applies Lymphocyte # [facility] percent {10^3_uL to non-numeric Health differential } results) System count (procedure) Monocytes/100 7.7 % Normal (applies Monocyte % [facility] leukocytes in to non-numeric Health Blood results) System Monocytes 0.6 Normal (applies Monocyte # [facility] [#/volume] in {10^3_uL to non-numeric Health Blood by Manual } results) System count Eosinophils/100 1.5 % Normal (applies Eosinophil % [facility] leukocytes in to non-numeric Health Unspecified results) System specimen Eosinophils 0.11 Normal (applies Eosinophil # [facility] [#/volume] in {10^3_uL to non-numeric Health Blood } results) System Basophils/100 0.8 % Normal (applies Basophil % [facility] leukocytes in to non-numeric Health Unspecified results) System specimen by Manual count Basophils 0.06 Normal (applies Basophil # [facility] [#/volume] in {10^3_uL to non-numeric Health Blood by } results) System Automated count ImmatureGranuloc 0.00 Normal (applies Immature [facility] ytes# {10^3_uL to non-numeric Granulocytes # Health } results) System ImmatureGranuloc 0.0 % Normal (applies Immature [facility] ytes% to non-numeric Granulocytes % Health results) System ID Date Data Source [id number] 02/04/2019 04:16:09 PM EST [facility] Name Value Range Interpretation Description Data Sup porting Code Source(s) Document(s ) Sodium 139 Normal (applies Sodium, Serum [facility] [Moles/volume] in mmol/L to non-numeric Health Serum or Plasma results) System Potassium 4.7 Normal (applies Potassium, [facility] [Mass/volume] in mmol/L to non-numeric Serum Health Serum or Plasma results) System Chloride 102 Normal (applies Chloride, [facility] [Moles/volume] in mmol/L to non-numeric Serum Health Serum or Plasma results) System Carbon dioxide, 25.8 Normal (applies CO2, Serum [facility] total mmol/L to non-numeric Health [Moles/volume] in results) System Serum or Plasma TotalProtein 6.8 Normal (applies Total Protein [facility] mg/dl to non-numeric Health results) System Glucose 125 Above high Glucose, [facility] [Mass/volume] in mg/dL normal Serum Health Serum or Plasma System Urea nitrogen 7 mg/dl Normal (applies Blood Urea [facility] [Mass/volume] in to non-numeric Nitrogen, Health Serum or Plasma results) Serum System Creatinine 0.76 Normal (applies Creatinine, [facility] [Mass/volume] in mg/dl to non-numeric Serum Health Serum or Plasma results) System Alkaline 118 Normal (applies Alkaline [facility] phosphatase {IU/L} to non-numeric Phosphatase, Health isoenzymes results) Serum System [Enzymatic activity/volume] in Serum or Plasma by Heat stability Bilirubin.total 0.3 Normal (applies Bilirubin, [facility] [Mass/volume] in mg/dl to non-numeric Serum Total Health Serum or Plasma results) System DirectBilirubin 0.1 Normal (applies Direct [facility] mg/dl to non-numeric Bilirubin Health results) System Aspartate 13 Normal (applies Aspartate [facility] aminotransferase {IU/L} to non-numeric Transaminase, Heal th [Enzymatic results) Serum System activity/volume] in Serum or Plasma by With P-5'-P Albumin 4.1 Normal (applies Albumin, [facility] [Mass/volume] in {gm/dl} to non-numeric Serum Health Serum or Plasma results) System I.Phosphorus 3.7 Normal (applies I. Phosphorus [facility] mg/dl to non-numeric Health results) System Alanine 16 Normal (applies Alanine [facility] aminotransferase {IU/L} to non-numeric Aminotransfer Heal th [Enzymatic results) ase, Serum System activity/volume] in Serum or Plasma Calcium 10.4 Above high Calcium, [facility] [Mass/volume] in mg/dl normal Total Serum Health Serum or Plasma System A/GRatio 1.52 Normal (applies A/G Ratio [facility] to non-numeric Health results) System Urate 6.9 Normal (applies Uric Acid, [facility] [Mass/volume] in mg/dl to non-numeric Serum Health Serum or Plasma results) System Anion gap in Serum 11.20 Normal (applies Anion Gap [facility] savi or Plasma mmol/L to non-numeric Health results) System Glomerular 79.40 Normal (applies GFR [facility] filtration to non-numeric Health rate/1.73 sq results) System M.predicted [Volume Rate/Area] in Serum or Plasma by Creatinine-based formula (CKD-EPI) eGFR will provide clinicians with a more accurate indicator of renal function then the serum creatinine. The eGFR is automa tically calculated from an empiric formula (endorsed by the [employer]) which incorporates age, sex, and race.Clinicians may notice surprisingly low GFR's with serum creatinine valueswithin normal range- particularly in elderly wo men (with low muscle mass).In the hospital setting, the eGFR should add an element of safety in drug dosing, in assessing the risk of IV contrast administration, and in assessing vascular risk.The NKF staging system is as follows:Normal: eGFR >90 with no kidney markersStage 1: eGFR >90 with kidney markers*Stage 2: eGFR 60- 89Stage 3: eGFR 30-59Stage 4: eGFR 15-29Stage 5: eGFR <15 (usually requir ing dialysis)*Markers include: Proteinuria, Hematuria, abnormal imaging-studies, or other blood or urine test abnormalities ID Date Data Source [id number] 02/04/2019 04:16:09 PM EST [facility] System Name Value Range Interpretation Description Data Sup porting Code Source(s) Document(s ) Sodium 140 Normal (applies Sodium, Serum [facility] [Moles/volume] in mmol/L to non-numeric Health Serum or Plasma results) System Potassium 4.8 Normal (applies Potassium, [facility] [Mass/volume] in mmol/L to non-numeric Serum Health Serum or Plasma results) System Chloride 104 Normal (applies Chloride, [facility] [Moles/volume] in mmol/L to non-numeric Serum Health Serum or Plasma results) System Carbon dioxide, 24.3 Normal (applies CO2, Serum [facility] total mmol/L to non-numeric Health [Moles/volume] in results) System Serum or Plasma TotalProtein 6.6 Normal (applies Total Protein [facility] mg/dl to non-numeric Health results) System Glucose 116 Above high Glucose, [facility] [Mass/volume] in mg/dL normal Serum Health Serum or Plasma System Urea nitrogen 8 mg/dl Normal (applies Blood Urea [facility] [Mass/volume] in to non-numeric Nitrogen, Health Serum or Plasma results) Serum System Creatinine 0.82 Normal (applies Creatinine, [facility] [Mass/volume] in mg/dl to non-numeric Serum Health Serum or Plasma results) System Alkaline 102 Normal (applies Alkaline [facility] phosphatase {IU/L} to non-numeric Phosphatase, Health isoenzymes results) Serum System [Enzymatic activity/volume] in Serum or Plasma by Heat stability Bilirubin.total 0.3 Normal (applies Bilirubin, [facility] [Mass/volume] in mg/dl to non-numeric Serum Total Health Serum or Plasma results) System DirectBilirubin 0.0 Normal (applies Direct [facility] mg/dl to non-numeric Bilirubin Health results) System Aspartate 16 Normal (applies Aspartate [facility] aminotransferase {IU/L} to non-numeric Transaminase, Heal th [Enzymatic results) Serum System activity/volume] in Serum or Plasma by With P-5'-P Albumin 4.0 Normal (applies Albumin, [facility] [Mass/volume] in {gm/dl} to non-numeric Serum Health Serum or Plasma results) System I.Phosphorus 3.9 Normal (applies I. Phosphorus [facility] mg/dl to non-numeric Health results) System Alanine 17 Normal (applies Alanine [facility] aminotransferase {IU/L} to non-numeric Aminotransfer Heal th [Enzymatic results) ase, Serum System activity/volume] in Serum or Plasma Calcium 10.2 Normal (applies Calcium, [facility] [Mass/volume] in mg/dl to non-numeric Total Serum Health Serum or Plasma results) System A/GRatio 1.54 Normal (applies A/G Ratio [facility] to non-numeric Health results) System Urate 6.6 Normal (applies Uric Acid, [facility] [Mass/volume] in mg/dl to non-numeric Serum Health Serum or Plasma results) System Anion gap in Serum 11.70 Normal (applies Anion Gap [facility]o savi or Plasma mmol/L to non-numeric Health results) System Glomerular 72.73 Normal (applies GFR [facility] filtration to non-numeric Health rate/1.73 sq results) System M.predicted [Volume Rate/Area] in Serum or Plasma by Creatinine-based formula (CKD-EPI) eGFR will provide clinicians with a more accurate indicator of renal function then the serum creatinine. The eGFR is automa tically calculated from an empiric formula (endorsed by the [employer]) which incorporates age, sex, and race.Clinicians may notice surprisingly low GFR's with serum creatinine valueswithin normal range- particularly in elderly wo men (with low muscle mass).In the hospital setting, the eGFR should add an element of safety in drug dosing, in assessing the risk of IV contrast administration, and in assessing vascular risk.The NKF staging system is as follows:Normal: eGFR >90 with no kidney markersStage 1: eGFR >90 with kidney markers*Stage 2: eGFR 60- 89Stage 3: eGFR 30-59Stage 4: eGFR 15-29Stage 5: eGFR <15 (usually requir ing dialysis)*Markers include: Proteinuria, Hematuria, abnormal imaging-studies, or other blood or urine test abnormalities ID Date Data Source [id number] 02/04/2019 04:16:09 PM EST [facility] Name Value Range Interpretation Description Data Sup porting Code Source(s) Document(s ) Leukocytes 8.3 Normal (applies WBC Count [facility] [#/volume] in {10^3_uL to non-numeric Health Unspecified } results) System specimen by Automated count Erythrocytes 5.63 Above high RBC Count [facility] [#/volume] in {10^6_uL normal Health Blood by } System Automated count Hemoglobin 15.9 Normal (applies Hemoglobin [facility] [Mass/volume] in {gm/dL} to non-numeric Health Blood results) System Hematocrit 50.6 % Above high Hematocrit [facility] [Volume normal Health Fraction] of System Blood Erythrocyte mean 89.9 fl Normal (applies MCV [facility] corpuscular to non-numeric Health volume [Entitic results) System volume] by Automated count Erythrocyte mean 28.2 pg Normal (applies MCH [facility] corpuscular to non-numeric Health hemoglobin results) System [Entitic mass] by Automated count Erythrocyte mean 31.4 Normal (applies MCHC [facility] corpuscular {gm/dL} to non-numeric Health hemoglobin results) System concentration [Mass/volume] by Automated count Erythrocyte 14.6 % Above high RDW-CV [facility] distribution normal Health width [Entitic System volume] by Automated count Platelets 302 Normal (applies Platelet Count [facility] [#/volume] in {10^3_uL to non-numeric Health Plasma by } results) System Automated count Platelet mean 11.0 fl Normal (applies MPV [facility] volume [Entitic to non-numeric Health volume] in Blood results) System by Automated count Nucleated 0.0 Normal (applies NRBC % [facility] erythrocytes {/100_WB to non-numeric Health [#/volume] in C} results) System Body fluid NRBC# 0.00 Normal (applies NRBC # [facility] {10^3_uL to non-numeric Health } results) System Neutrophils/100 48.8 % Below low normal Neutrophil % [facility] [facility] leukocytes in Health Blood by System Automated count Neutrophils 4.1 Normal (applies Neutrophil # [facility] [#/volume] in {10^3_uL to non-numeric Health Body fluid } results) System Lymphocytes 41.3 % Above high Lymphocyte % [facility] [#/volume] in normal Health Blood by System Automated count Lymphocyte 3.4 Normal (applies Lymphocyte # [facility] percent {10^3_uL to non-numeric Health differential } results) System count (procedure) Monocytes/100 7.6 % Normal (applies Monocyte % [facility] leukocytes in to non-numeric Health Blood results) System Monocytes 0.6 Normal (applies Monocyte # [facility] [#/volume] in {10^3_uL to non-numeric Health Blood by Manual } results) System count Eosinophils/100 1.6 % Normal (applies Eosinophil % [place] [facility] leukocytes in to non-numeric Health Unspecified results) System specimen Eosinophils 0.13 Normal (applies Eosinophil # [facility] [#/volume] in {10^3_uL to non-numeric Health Blood } results) System Basophils/100 0.6 % Normal (applies Basophil % [facility] leukocytes in to non-numeric Health Unspecified results) System specimen by Manual count Basophils 0.05 Normal (applies Basophil # [facility] [#/volume] in {10^3_uL to non-numeric Health Blood by } results) System Automated count ImmatureGranuloc 0.01 Normal (applies Immature [facility] ytes# {10^3_uL to non-numeric Granulocytes # Health } results) System ImmatureGranuloc 0.1 % Normal (applies Immature [facility] ytes% to non-numeric Granulocytes % Health results) System ID Date Data Source [id number] 02/04/2019 04:16:09 PM EST [facility] Name Value Range Interpretation Description Data Sup porting Code Source(s) Document(s ) Phenytoin 5.0 Below low normal Phenytoin [facility] [Mass/volume] ug/ml Level, Serum [facility] System in Serum or Plasma ID Date Data Source [id number] 02/04/2019 04:16:09 PM EST [facility] System Name Value Range Interpretation Description Data Sup porting Code Source(s) Document(s ) Phenobarbital 48.6 Above high Phenobarbital [facility] [Mass/volume] in ug/ml normal Level, Serum Health Serum or Plasma System ID Date Data Source [id number] 02/04/2019 04:16:09 PM EST [facility] Name Value Range Interpretation Description Data Sup porting Code Source(s) Document(s ) Thyrotropin 2.366 Normal (applies Thyroid [facility] [Mass/volume] {mIU/mL} to non-numeric Stimulating Health Sy stem in Serum or results) Hormone, Serum Plasma ID Date Data Source [id number] 02/04/2019 04:16:09 PM EST [facility] Name Value Range Interpretation Description Data Sup porting Code Source(s) Document(s ) Sodium 134 Below low normal Sodium, Serum [facility] [Moles/volume mmol/L Health System ] in Serum or Plasma Potassium 2.9 Below lower panic Potassium, [facility] [Mass/volume] mmol/L limits Serum [facility] System in Serum or Plasma OKResult Reporting|Telephone|Rashad MANRIQUE| at 2:11 AMCalled to:Tech Name:Mariela by: 10/09/2011 / 2:1 1 AM Chloride [Moles/volume] 97 mmol/L Below low Chloride, Serum [facility] in Serum or Plasma normal System [place] Carbon dioxide, total 23.0 mmol/L Normal (applies to CO2, Serum [facility] [Moles/volume] in non-numeric System Serum or Plasma results) Glucose [Mass/volume] 90 mg/dL Normal (applies to Glucose, [facility] in Serum or Plasma non-numeric Serum System results) Urea nitrogen 9 mg/dl Normal (applies to Blood Urea [facility] [Mass/volume] in non-numeric Nitrogen, System Serum or Plasma results) Serum Creatinine 0.90 mg/dl Normal (applies to Creatinine, [facility] [Mass/volume] in non-numeric Serum System Serum or Plasma results) Calcium [Mass/volume] 9.7 mg/dl Normal (applies to Calcium, [facility] in Serum or Plasma non-numeric Total Serum System results) Anion gap in Serum or 14.00 mmol/L Above high normal Anion Gap [facility] Plasma System ID Date Data Source [id number] 02/04/2019 04:16:09 PM [facility] Name Value Range Interpretation Description Data Sup porting Code Source(s) Document(s ) Phenobarbital 37.0 Normal (applies PHENobarbital [facility] [Mass/volume] in ug/ml to non-numeric Level, Serum Healt h Serum or Plasma results) System ID Date Data Source [id number] 02/04/2019 04:16:09 PM [facility] Name Value Range Interpretation Description Data Sup porting Code Source(s) Document(s ) Phenytoin 10.5 Normal (applies Phenytoin [facility] [Mass/volume] ug/ml to non-numeric Level, Serum Health S ystem in Serum or results) Plasma ID Date Data Source [id number] 02/04/2019 04:16:09 PM [facility] Name Value Range Interpretation Description Data Sup porting Code Source(s) Document(s ) Creatine 101 Normal (applies Creatine [facility] kinase.MB {IU/L} to non-numeric Kinase, Serum Health Syst em [Mass/volume results) ] in Serum or Plasma ID Date Data Source [id number] 02/04/2019 04:16:09 PM [facility] Name Value Range Interpretation Description Data Sup porting Code Source(s) Document(s ) Levetiracetam 47.40 Normal (applies LevETIRAcetam [facility] [Mass/volume] in {mcg/mL to non-numeric Level, Serum Healt h Serum or Plasma } results) System Unable to flag abnormal result(s), pl ease refer to reference range(s) below: Therapeutic Levels: Drug Dosage Tr ough Peak 500 mg BID 3.1-10.0 mcg/mL 10.0-25.0 mcg/kQ2233 mg BID 4 .9-37.1 mcg/mL 30.0-40.0 mcg/xN6622 mg BID 7.0-34.0 mcg/mL 36.1-70.0 mcg/mL To xic level: Not established This test was performed at: [facility] [address] [place], [place] Test Performed at: [facility] [address] [place], [address] [place], [place] Nitish thorne M.D., Ph.D. ID Date Data Source [id number] 02/04/2019 04:16:09 PM EST [facility] Name Value Range Interpretation Description Data Sup porting Code Source(s) Document(s ) Leukocytes 6.7 Normal (applies WBC Count [facility] [#/volume] in {10^3_uL to non-numeric Health Unspecified } results) System specimen by Automated count Erythrocytes 5.27 Above high normal RBC Count [facility] [#/volume] in {10^6_uL Health Blood by } System Automated count Hemoglobin 15.5 Normal (applies Hemoglobin [facility] [Mass/volume] in {gm/dL} to non-numeric Health Blood results) System Hematocrit 46.1 % Above high normal Hematocrit [facility] [Volume [facility] Fraction] of System Blood Erythrocyte mean 87.5 fl Normal (applies MCV [facility] corpuscular to non-numeric Health volume [Entitic results) System volume] by Automated count Erythrocyte mean 29.4 pg Normal (applies MCH [facility] corpuscular to non-numeric Health hemoglobin results) System [Entitic mass] by Automated count Erythrocyte mean 33.6 Normal (applies MCHC [facility] corpuscular {gm/dL} to non-numeric Health hemoglobin results) System concentration [Mass/volume] by Automated count Erythrocyte 14.0 % Normal (applies RDW-CV [facility] distribution to non-numeric Health width [Entitic results) System volume] by Automated count Platelets 304 Normal (applies Platelet [facility] [#/volume] in {10^3_uL to non-numeric Count Health Plasma by } results) System Automated count Platelet mean 10.9 fl Above high normal MPV [facility] volume [Entitic Health volume] in Blood System by Automated count Monocytes 0.3 Normal (applies Monocyte # [facility] [#/volume] in {10^3_uL to non-numeric Health Blood by Manual } results) System count Eosinophils 0.06 Normal (applies Eosinophil # [facility] [#/volume] in {10^3_uL to non-numeric Health Blood } results) System Neutrophils 4.0 Normal (applies Neutrophil # [facility] [#/volume] in {10^3_uL to non-numeric Health Body fluid } results) System Basophils 0.01 Normal (applies Basophil # [facility] [#/volume] in {10^3_uL to non-numeric Health Blood by } results) System Automated count Lymphocyte 2.4 Normal (applies Lymphocyte # [facility] percent {10^3_uL to non-numeric Health differential } results) System count (procedure) Neutrophils/100 59.0 % Normal (applies Neutrophil % [facility] leukocytes in to non-numeric Health Blood by results) System Automated count Monocytes/100 4.8 % Below low normal Monocyte % [facility] leukocytes in Health Blood System Eosinophils/100 0.9 % Below low normal Eosinophil % [facility] leukocytes in Health Unspecified System specimen Basophils/100 0.1 % Normal (applies Basophil % [facility] leukocytes in to non-numeric Health Unspecified results) System specimen by Manual count Lymphocytes 35.2 % Normal (applies Lymphocyte % [facility] [#/volume] in to non-numeric Health Blood by results) System Automated count ID Date Data Source [id number] 02/04/2019 04:16:09 PM EST [facility] Name Value Range Interpretation Description Data Sup porting Code Source(s) Document(s ) Sodium 140 Normal (applies Sodium, Serum [facility] [Moles/volume] in mmol/L to non-numeric Health Serum or Plasma results) System Potassium 4.5 Normal (applies Potassium, [facility] [Mass/volume] in mmol/L to non-numeric Serum Health Serum or Plasma results) System Chloride 108 Above high Chloride, [facility] [Moles/volume] in mmol/L normal Serum Health Serum or Plasma System Carbon dioxide, 21.0 Below low normal CO2, Serum [facility] total mmol/L [facility] [Moles/volume] in System Serum or Plasma TotalProtein 6.5 Normal (applies Total Protein [facility] mg/dl to non-numeric Health results) System Glucose 118 Above high Glucose, [facility] [Mass/volume] in mg/dL normal Serum Health Serum or Plasma System Urea nitrogen 9 mg/dl Normal (applies Blood Urea [facility] [Mass/volume] in to non-numeric Nitrogen, Health Serum or Plasma results) Serum System Creatinine 0.90 Normal (applies Creatinine, [facility] [Mass/volume] in mg/dl to non-numeric Serum Health Serum or Plasma results) System Alkaline 109 Normal (applies Alkaline [facility] phosphatase {IU/L} to non-numeric Phosphatase, Health isoenzymes results) Serum System [Enzymatic activity/volume] in Serum or Plasma by Heat stability Bilirubin.total 0.2 Normal (applies Bilirubin, [facility] [Mass/volume] in mg/dl to non-numeric Serum Total Health Serum or Plasma results) System DirectBilirubin 0.1 Normal (applies Direct [facility] mg/dl to non-numeric Bilirubin Health results) System Aspartate 10 Normal (applies Aspartate [facility] aminotransferase {IU/L} to non-numeric Transaminase, Heal th [Enzymatic results) Serum System activity/volume] in Serum or Plasma by With P-5'-P Albumin 3.8 Below low normal Albumin, [facility] [Mass/volume] in {gm/dl} Serum Health Serum or Plasma System I.Phosphorus 2.6 Normal (applies I. Phosphorus [facility] mg/dl to non-numeric Health results) System Alanine 10 Normal (applies Alanine [facility] aminotransferase {IU/L} to non-numeric Aminotransfer Heal th [Enzymatic results) ase, Serum System activity/volume] in Serum or Plasma Calcium 10.2 Normal (applies Calcium, [facility] [Mass/volume] in mg/dl to non-numeric Total Serum Health Serum or Plasma results) System A/GRatio 1.41 Normal (applies A/G Ratio [facility] to non-numeric Health results) System Urate 5.3 Normal (applies Uric Acid, [facility] [Mass/volume] in mg/dl to non-numeric Serum Health Serum or Plasma results) System Anion gap in Serum 11.00 Normal (applies Anion Gap [facility] or Plasma mmol/L to non-numeric Health results) System Glomerular 66.46 Normal (applies GFR [facility] filtration to non-numeric Health rate/1.73 sq results) System M.predicted [Volume Rate/Area] in Serum or Plasma by Creatinine-based formula (CKD-EPI) eGFR will provide clinicians with a more accurate indicator of renal function then the serum creatinine. The eGFR is automa tically calculated from an empiric formula (endorsed by the [employer]) which incorporates age, sex, and race.Clinicians may notice surprisingly low GFR's with serum creatinine valueswithin normal range- particularly in elderly wo men (with low muscle mass).In the hospital setting, the eGFR should add an element of safety in drug dosing, in assessing the risk of IV contrast administration, and in assessing vascular risk.The NKF staging system is as follows:Normal: eGFR >90 with no kidney markersStage 1: eGFR >90 with kidney markers*Stage 2: eGFR 60- 89Stage 3: eGFR 30-59Stage 4: eGFR 15-29Stage 5: eGFR <15 (usually requir ing dialysis)*Markers include: Proteinuria, Hematuria, abnormal imaging-studies, or other blood or urine test abnormalities ID Date Data Source [id number] 02/04/2019 04:16:09 PM EST [facility] Name Value Range Interpretation Description Data Sup porting Code Source(s) Document(s ) Phenytoin 16.2 Normal (applies Phenytoin [facility] [Mass/volume] ug/ml to non-numeric Level, Serum Health S ystem in Serum or results) Plasma ID Date Data Source [id number] 02/04/2019 04:16:09 PM EST [facility] Name Value Range Interpretation Description Data Sup porting Code Source(s) Document(s ) Type B Normal (applies Type [facility] to non-numeric Health results) System D Ab [Titer] in Positive Normal (applies Rh [facility] Serum or Plasma to non-numeric Health results) System AntibodyScreen Negative Normal (applies Antibody [facility] to non-numeric Screen Health results) System ID Date Data Source [id number] 02/04/2019 04:16:09 PM EST [facility] Name Value Range Interpretation Description Data Sup porting Code Source(s) Document(s ) aPTT in Blood 24.0 Normal (applies Activated [facility] by Coagulation {Seconds to non-numeric Partial Health assay } results) Thromboplastin System Time ID Date Data Source [id number] 02/04/2019 04:16:09 PM EST [facility] Name Value Range Interpretation Description Data Sup porting Code Source(s) Document(s ) Prothrombintim 10.20 Normal (applies Prothrombin [facility](PT) {seconds to non-numeric time (PT) Health System } results) INR in Blood 0.98 Normal (applies INR Result [facility] by Coagulation {Ratio} to non-numeric Health Sys tem assay results) Normal = 0.7-1.1Therapeutic = 2.0-3.0Mec hanical Heart = 3.0-4.5 ID Date Data Source [id number] 02/04/2019 04:16:09 PM EST [facility] Name Value Range Interpretation Description Data Sup porting Code Source(s) Document(s ) Leukocytes 9.6 Normal (applies WBC Count [facility] [#/volume] in {10^3_uL to non-numeric Health Unspecified } results) System specimen by Automated count Erythrocytes 4.98 Normal (applies RBC Count [facility] [#/volume] in {10^6_uL to non-numeric Health Blood by } results) System Automated count Hemoglobin 14.7 Normal (applies Hemoglobin [facility] [Mass/volume] in {gm/dL} to non-numeric Health Blood results) System Hematocrit 43.9 % Normal (applies Hematocrit [facility] [Volume to non-numeric Health Fraction] of results) System Blood Erythrocyte mean 88.2 fl Normal (applies MCV [facility] corpuscular to non-numeric Health volume [Entitic results) System volume] by Automated count Erythrocyte mean 29.5 pg Normal (applies MCH [facility] corpuscular to non-numeric Health hemoglobin results) System [Entitic mass] by Automated count Erythrocyte mean 33.5 Normal (applies MCHC [facility] corpuscular {gm/dL} to non-numeric Health hemoglobin results) System concentration [Mass/volume] by Automated count Erythrocyte 14.5 % Normal (applies RDW-CV [facility] distribution to non-numeric Health width [Entitic results) System volume] by Automated count Platelets 295 Normal (applies Platelet [facility] [#/volume] in {10^3_uL to non-numeric Count Health Plasma by } results) System Automated count Platelet mean 10.7 fl Above high normal MPV [facility] volume [Entitic Health volume] in Blood System by Automated count Monocytes 0.7 Normal (applies Monocyte # [facility] [#/volume] in {10^3_uL to non-numeric Health Blood by Manual } results) System count Eosinophils 0.09 Normal (applies Eosinophil # [facility] [#/volume] in {10^3_uL to non-numeric Health Blood } results) System Neutrophils 5.3 Normal (applies Neutrophil # [facility] [#/volume] in {10^3_uL to non-numeric Health Body fluid } results) System Basophils 0.02 Normal (applies Basophil # [facility] [#/volume] in {10^3_uL to non-numeric Health Blood by } results) System Automated count Lymphocyte 3.6 Normal (applies Lymphocyte # [facility] percent {10^3_uL to non-numeric Health differential } results) System count (procedure) Neutrophils/100 54.8 % Normal (applies Neutrophil % Jono savi leukocytes in to non-numeric Health Blood by results) System Automated count Monocytes/100 7.2 % Normal (applies Monocyte % [facility] leukocytes in to non-numeric Health Blood results) System Eosinophils/100 0.9 % Below low normal Eosinophil % [place] [facility] leukocytes in Health Unspecified System specimen Basophils/100 0.2 % Normal (applies Basophil % [facility] leukocytes in to non-numeric Health Unspecified results) System specimen by Manual count Lymphocytes 36.9 % Normal (applies Lymphocyte % [facility] [#/volume] in to non-numeric Health Blood by results) System Automated count ID Date Data Source [id number] 02/04/2019 04:16:09 PM EST [facility] Name Value Range Interpretation Description Data Sup porting Code Source(s) Document(s ) Sodium 143 Normal (applies Sodium, Serum [facility] [Moles/volume] mmol/L to non-numeric Health in Serum or results) System Plasma Potassium 3.9 Normal (applies Potassium, [facility] [Mass/volume] mmol/L to non-numeric Serum Health in Serum or results) System Plasma Chloride 107 Normal (applies Chloride, [facility] [Moles/volume] mmol/L to non-numeric Serum Health in Serum or results) System Plasma Carbon dioxide, 21.0 Below low normal CO2, Serum [facility] total mmol/L Health [Moles/volume] System in Serum or Plasma TotalProtein 6.8 Normal (applies Total Protein [facility] mg/dl to non-numeric Health results) System Glucose 150 Above high normal Glucose, Serum [facility] [Mass/volume] mg/dL Health in Serum or System Plasma ok Urea nitrogen 10 mg/dl Normal (applies Blood Urea [facility] [Mass/volume] in Serum to non-numeric Nitrogen, Se rum Health System or Plasma results) Creatinine 1.20 mg/dl Normal (applies Creatinine, [facility] [Mass/volume] in Serum to non-numeric Serum He alth System or Plasma results) Alkaline phosphatase 110 {IU/L} Normal (applies Alkaline [facility] isoenzymes [Enzymatic to non-numeric Phosphatase, Health System activity/volume] in results) Serum Serum or Plasma by Heat stability Bilirubin.total 0.2 mg/dl Normal (applies Bilirubin, Serum [facility] [Mass/volume] in Serum to non-numeric Total He alth System or Plasma results) DirectBilirubin 0.1 mg/dl Normal (applies Direct Bilirubin [facility] to non-numeric Health System results) Aspartate 21 {IU/L} Normal (applies Aspartate [facility] aminotransferase to non-numeric Transaminase, [facility] System [Enzymatic results) Serum activity/volume] in Serum or Plasma by With P-5'-P Albumin [Mass/volume] 4.1 {gm/dl} Normal (applies Albumin, S barrie [facility] in Serum or Plasma to non-numeric Health System results) I.Phosphorus 4.0 mg/dl Normal (applies I. Phosphorus [facility] to non-numeric Health System results) ok Alanine 18 {IU/L} Normal (applies Alanine [facility] aminotransferase to non-numeric Aminotransferase, [facility] [Enzymatic results) Serum activity/volume] in Serum or Plasma Calcium [Mass/volume] 10.0 mg/dl Normal (applies Calcium, Total Serum [facility] in Serum or Plasma to non-numeric Health System results) A/GRatio 1.52 Normal (applies A/G Ratio [facility] to non-numeric Health System results) Urate [Mass/volume] 7.8 mg/dl Above high Uric Acid, Serum [facility] in Serum or Plasma normal Health Syst em Anion gap in Serum or 15.00 Above high Anion Gap [facility] Plasma mmol/L normal Health System Glomerular filtration 47.68 Normal (applies GFR [facility] rate/1.73 sq to non-numeric Health Syste m M.predicted [Volume results) Rate/Area] in Serum or Plasma by Creatinine-based formula (CKD-EPI) eGFR will provide clinicians with a more accurate indicator of renal function then the serum creatinine. The eGFR is automa tically calculated from an empiric formula (endorsed by the [employer]) which incorporates age, sex, and race.Clinicians may notice surprisingly low GFR's with serum creatinine valueswithin normal range- particularly in elderly wo men (with low muscle mass).In the hospital setting, the eGFR should add an element of safety in drug dosing, in assessing the risk of IV contrast administration, and in assessing vascular risk.The NKF staging system is as follows:Normal: eGFR >90 with no kidney markersStage 1: eGFR >90 with kidney markers*Stage 2: eGFR 60- 89Stage 3: eGFR 30-59Stage 4: eGFR 15-29Stage 5: eGFR <15 (usually requir ing dialysis)*Markers include: Proteinuria, Hematuria, abnormal imaging-studies, or other blood or urine test abnormalities ID Date Data Source [id number] 02/04/2019 04:16:09 PM EST [facility] Name Value Range Interpretation Description Data Sup porting Code Source(s) Document(s ) TroponinIQuantitative 0.00 Normal (applies Troponin I [facility] ng/ml to non-numeric Quantitative Health results) System ID Date Data Source [id number] 02/04/2019 04:16:09 PM EST [facility] Name Value Range Interpretation Description Data Sup porting Code Source(s) Document(s ) Prothrombintim 10.20 Normal (applies Prothrombin [facility](PT) {seconds to non-numeric time (PT) Health System } results) INR in Blood 0.98 Normal (applies INR Result [facility] by Coagulation {Ratio} to non-numeric Health Sys tem assay results) Normal = 0.7-1.1Therapeutic = 2.0-3.0Mec hanical Heart = 3.0-4.5 ID Date Data Source [id number] 02/04/2019 04:16:09 PM EST [facility] Name Value Range Interpretation Description Data Source(s ) Supporting Code Document(s ) D-DimerQ Positive Normal (applies to D-Dimer [facility] ualitati non-numeric Qualitative Health System ve results) ID Date Data Source [id number] 02/04/2019 04:16:09 PM EST [facility] Name Value Range Interpretation Description Data Sup porting Code Source(s) Document(s ) Leukocytes 8.9 Normal (applies WBC Count [facility] [#/volume] in {10^3_uL to non-numeric Health Unspecified } results) System specimen by Automated count Erythrocytes 5.10 Normal (applies RBC Count [facility] [#/volume] in {10^6_uL to non-numeric Health Blood by } results) System Automated count Hemoglobin 14.8 Normal (applies Hemoglobin [facility] [Mass/volume] in {gm/dL} to non-numeric Health Blood results) System Hematocrit 43.8 % Normal (applies Hematocrit [facility] [Volume to non-numeric Health Fraction] of results) System Blood Erythrocyte mean 85.9 fl Normal (applies MCV [facility] corpuscular to non-numeric Health volume [Entitic results) System volume] by Automated count Erythrocyte mean 29.0 pg Normal (applies MCH [facility] corpuscular to non-numeric Health hemoglobin results) System [Entitic mass] by Automated count Erythrocyte mean 33.8 Normal (applies MCHC [facility] corpuscular {gm/dL} to non-numeric Health hemoglobin results) System concentration [Mass/volume] by Automated count Erythrocyte 14.5 % Normal (applies RDW-CV [facility] distribution to non-numeric Health width [Entitic results) System volume] by Automated count Platelets 270 Normal (applies Platelet [facility] [#/volume] in {10^3_uL to non-numeric Count Health Plasma by } results) System Automated count Platelet mean 11.7 fl Above high normal MPV [facility] volume [Entitic Health volume] in Blood System by Automated count Monocytes 0.5 Normal (applies Monocyte # [facility] [#/volume] in {10^3_uL to non-numeric Health Blood by Manual } results) System count Eosinophils 0.21 Normal (applies Eosinophil # [facility] [#/volume] in {10^3_uL to non-numeric Health Blood } results) System Neutrophils 4.7 Normal (applies Neutrophil # [facility] [#/volume] in {10^3_uL to non-numeric Health Body fluid } results) System Basophils 0.03 Normal (applies Basophil # [facility] [#/volume] in {10^3_uL to non-numeric Health Blood by } results) System Automated count Lymphocyte 3.4 Normal (applies Lymphocyte # [facility] percent {10^3_uL to non-numeric Health differential } results) System count (procedure) Neutrophils/100 53.4 % Normal (applies Neutrophil % [facility] savi leukocytes in to non-numeric Health Blood by results) System Automated count Monocytes/100 5.6 % Below low normal Monocyte % [facility] leukocytes in Health Blood System Eosinophils/100 2.4 % Normal (applies Eosinophil % [facility] savi leukocytes in to non-numeric Health Unspecified results) System specimen Basophils/100 0.3 % Normal (applies Basophil % [facility] leukocytes in to non-numeric Health Unspecified results) System specimen by Manual count Lymphocytes 38.3 % Normal (applies Lymphocyte % [facility] [#/volume] in to non-numeric Health Blood by results) System Automated count ID Date Data Source [id number] 02/04/2019 04:16:09 PM EST [facility] Name Value Range Interpretation Description Data Sup porting Code Source(s) Document(s ) Sodium 143 Normal (applies Sodium, Serum [facility] [Moles/volume] in mmol/L to non-numeric Health Serum or Plasma results) System Potassium 3.8 Normal (applies Potassium, [facility] [Mass/volume] in mmol/L to non-numeric Serum Health Serum or Plasma results) System Chloride 110 Above high Chloride, [facility] [Moles/volume] in mmol/L normal Serum Health Serum or Plasma System Carbon dioxide, 21.0 Below low normal CO2, Serum [facility] total mmol/L Health [Moles/volume] in System Serum or Plasma TotalProtein 6.8 Normal (applies Total Protein [facility] mg/dl to non-numeric Health results) System Glucose 129 Above high Glucose, [facility] [Mass/volume] in mg/dL normal Serum Health Serum or Plasma System Urea nitrogen 11 Normal (applies Blood Urea [facility] [Mass/volume] in mg/dl to non-numeric Nitrogen, Health Serum or Plasma results) Serum System Creatinine 0.90 Normal (applies Creatinine, [facility] [Mass/volume] in mg/dl to non-numeric Serum Health Serum or Plasma results) System Alkaline 101 Normal (applies Alkaline [facility] phosphatase {IU/L} to non-numeric Phosphatase, Health isoenzymes results) Serum System [Enzymatic activity/volume] in Serum or Plasma by Heat stability Bilirubin.total 0.1 Below low normal Bilirubin, [facility] [Mass/volume] in mg/dl Serum Total Health Serum or Plasma System DirectBilirubin 0.1 Normal (applies Direct [facility] mg/dl to non-numeric Bilirubin Health results) System Aspartate 13 Normal (applies Aspartate [facility] aminotransferase {IU/L} to non-numeric Transaminase, Heal th [Enzymatic results) Serum System activity/volume] in Serum or Plasma by With P-5'-P Albumin 3.9 Normal (applies Albumin, [facility] [Mass/volume] in {gm/dl} to non-numeric Serum Health Serum or Plasma results) System I.Phosphorus 3.4 Normal (applies I. Phosphorus [facility] mg/dl to non-numeric Health results) System Alanine 12 Normal (applies Alanine [facility] aminotransferase {IU/L} to non-numeric Aminotransfer Heal th [Enzymatic results) ase, Serum System activity/volume] in Serum or Plasma Calcium 10.0 Normal (applies Calcium, [facility] [Mass/volume] in mg/dl to non-numeric Total Serum Health Serum or Plasma results) System A/GRatio 1.34 Normal (applies A/G Ratio [facility] to non-numeric Health results) System Urate 5.6 Normal (applies Uric Acid, [facility] [Mass/volume] in mg/dl to non-numeric Serum Health Serum or Plasma results) System Anion gap in Serum 12.00 Normal (applies Anion Gap [facility] savi or Plasma mmol/L to non-numeric Health results) System Glomerular 66.43 Normal (applies GFR [facility] filtration to non-numeric Health rate/1.73 sq results) System M.predicted [Volume Rate/Area] in Serum or Plasma by Creatinine-based formula (CKD-EPI) eGFR will provide clinicians with a more accurate indicator of renal function then the serum creatinine. The eGFR is automa tically calculated from an empiric formula (endorsed by the [employer] Kid[employer] ion) which incorporates age, sex, and race.Clinicians may notice surprisingly low GFR's with serum creatinine valueswithin normal range- particularly in elderly wo men (with low muscle mass).In the hospital setting, the eGFR should add an element of safety in drug dosing, in assessing the risk of IV contrast administration, and in assessing vascular risk.The NKF staging system is as follows:Normal: eGFR >90 with no kidney markersStage 1: eGFR >90 with kidney markers*Stage 2: eGFR 60- 89Stage 3: eGFR 30-59Stage 4: eGFR 15-29Stage 5: eGFR <15 (usually requir ing dialysis)*Markers include: Proteinuria, Hematuria, abnormal imaging-studies, or other blood or urine test abnormalities ID Date Data Source [id number] 02/04/2019 04:16:09 PM EST [facility] System Name Value Range Interpretation Description Data Sup porting Code Source(s) Document(s ) Phenytoin 1.3 Below low normal Phenytoin [facility] [Mass/volume] ug/ml Level, Serum Health System in Serum or Plasma ID Date Data Source [id number] 02/04/2019 04:16:09 PM EST [facility] Name Value Range Interpretation Description Data Sup porting Code Source(s) Document(s ) TroponinIQuantitative 0.00 Normal (applies Troponin I [facility] ng/ml to non-numeric Quantitative Health results) System ID Date Data Source [id number] 02/04/2019 04:16:09 PM EST [facility] Name Value Range Interpretation Description Data Sup porting Code Source(s) Document(s ) Triglyceride 147 Above high normal Triglycerides, [place] [facility] [Mass/volume] mg/dl Serum Health in Serum or System Plasma Optimal = < 100 mg/dLBoderline High = 15 0 - 199 mg/dLHigh = 200 - 499 mg/dLVery High = > 500 mg/dL Cholesterol 176 mg/dl Normal (applies Cholesterol, Serum [facility] [Mass/volume] in to non-numeric Health S yste Serum or Plasma results) <200 mg/dL = [id number] - 239 md/dL = Borderline>240 mg/dL = High Risk Cholesterol in HDL 60.0 mg/dL Normal (applies HDL Cholestero l, [facility] [Mass/volume] in to non-numeric Serum Health S yste Serum or Plasma results) Cholesterol in LDL 86.6 mg/dL Normal (applies Low Density [facility] [Mass/volume] in to non-numeric Lipoprotein, Healt h System Serum or Plasma results) Calculated OPTIMAL: LESS THAN 100 mg/dLNEAR OPTIMAL : 100 - 129 mg/dLBODERLINE HIGH: 130 - 150 mg/dL Cholesterol in VLDL 29.4 Normal (applies to VLDL, Serum [facility] [Mass/volume] in Serum non-numeric results) System or Plasma CHDRisk 2.93 Normal (applies to CHD Risk [facility] non-numeric results) System ID Date Data Source [id number] 02/04/2019 04:16:09 PM EST [facility] Name Value Range Interpretation Description Data Sup porting Code Source(s) Document(s ) Phenobarbital 2.0 Below low normal Phenobarbital [facility] [Mass/volume] in ug/ml Level, Serum Health Serum or Plasma System ID Date Data Source [id number] 02/04/2019 04:16:09 PM EST [facility] Name Value Range Interpretation Description Data Sup porting Code Source(s) Document(s ) Color YELLOW Normal (applies Color [facility] to non-numeric Health results) System Appearance of CLEAR Normal (applies Urine [facility] Urine to non-numeric Appearance Health results) System Specific gravity 1.010 Normal (applies Urine Specific [facility] of Urine to non-numeric [facility] results) System pH.. 6.0 Normal (applies pH.. [facility] {pH_units} to non-numeric Health results) System Glucose,UA NEGATIVE Normal (applies Glucose, UA [facility] to non-numeric Health results) System Protein NEGATIVE Normal (applies Protein [facility] [Mass/volume] in to non-numeric Health Serum or Plasma results) System BilirubinUrine NEGATIVE Normal (applies Bilirubin [facility] to non-numeric Urine Health results) System Urobilinogen 0.2 mg/dL Normal (applies Urobilinogen [facility] [Mass/volume] in to non-numeric UA Health Urine results) System Ketones NEGATIVE Normal (applies Ketones UA [facility] [Mass/volume] in to non-numeric Health Urine results) System Nitrate+Nitrite NEGATIVE Normal (applies Nitrite [facility] [Mass/volume] in to non-numeric Health Unspecified results) System specimen Leukocyte NEGATIVE Normal (applies Leukocyte [facility] esterase to non-numeric Esterase Health [Units/volume] results) Concentration System in Urine Leukocytes 0-2 Normal (applies White Blood [facility] [#/volume] in to non-numeric Cells Health Unspecified results) System specimen by Automated count RedBloodCells 0-2 Normal (applies Red Blood [facility] to non-numeric Cells Health results) System UrineBlood TRACE-LYSE Normal (applies Urine Blood [facility] D to non-numeric Health results) System ID Date Data Source [id number] 02/04/2019 04:16:09 PM EST [facility] Name Value Range Interpretation Description Data Sup porting Code Source(s) Document(s ) Prothrombintim 10.30 Normal (applies Prothrombin [facility](PT) {seconds to non-numeric time (PT) Health System } results) INR in Blood 0.99 Normal (applies INR Result [facility] by Coagulation {Ratio} to non-numeric Health Sys tem assay results) Normal = 0.7-1.1Therapeutic = 2.0-3.0Mec hanical Heart = 3.0-4.5 ID Date Data Source [id number] 02/04/2019 04:16:09 PM EST [facility] System Name Value Range Interpretation Description Data Sup porting Code Source(s) Document(s ) Sodium 140 Normal (applies Sodium, Serum [facility] [Moles/volume] in mmol/L to non-numeric Health Serum or Plasma results) System Potassium 3.5 Below low normal Potassium, [facility] [Mass/volume] in mmol/L Serum Health Serum or Plasma System Chloride 105 Normal (applies Chloride, [facility] [Moles/volume] in mmol/L to non-numeric Serum Health Serum or Plasma results) System Carbon dioxide, 24.0 Normal (applies CO2, Serum [facility] total mmol/L to non-numeric Health [Moles/volume] in results) System Serum or Plasma TotalProtein 7.9 Normal (applies Total Protein [facility] mg/dl to non-numeric Health results) System Glucose 100 Normal (applies Glucose, [facility] [Mass/volume] in mg/dL to non-numeric Serum Health Serum or Plasma results) System Urea nitrogen 12 Normal (applies Blood Urea [facility] [Mass/volume] in mg/dl to non-numeric Nitrogen, Health Serum or Plasma results) Serum System Creatinine 1.22 Above high Creatinine, [facility] [Mass/volume] in mg/dl normal Serum Health Serum or Plasma System Alkaline 114 Normal (applies Alkaline [facility] phosphatase {IU/L} to non-numeric Phosphatase, Health isoenzymes results) Serum System [Enzymatic activity/volume] in Serum or Plasma by Heat stability DirectBilirubin 0.1 Normal (applies Direct [facility] mg/dl to non-numeric Bilirubin Health results) System Bilirubin.total 0.2 Normal (applies Bilirubin, [facility] [Mass/volume] in mg/dl to non-numeric Serum Total Health Serum or Plasma results) System Aspartate 16 Normal (applies Aspartate [facility] aminotransferase {IU/L} to non-numeric Transaminase, Heal th [Enzymatic results) Serum System activity/volume] in Serum or Plasma by With P-5'-P Albumin 4.8 Normal (applies Albumin, [facility] [Mass/volume] in {gm/dl} to non-numeric Serum Health Serum or Plasma results) System I.Phosphorus 4.0 Normal (applies I. Phosphorus [facility] mg/dl to non-numeric Health results) System Alanine 11 Normal (applies Alanine [facility] aminotransferase {IU/L} to non-numeric Aminotransfer [facility]al th [Enzymatic results) ase, Serum System activity/volume] in Serum or Plasma Calcium 11.3 Above high Calcium, [facility] [Mass/volume] in mg/dl normal Total Serum Health Serum or Plasma System A/GRatio 1.55 Normal (applies A/G Ratio [facility] to non-numeric Health results) System Urate 5.6 Normal (applies Uric Acid, [facility] [Mass/volume] in mg/dl to non-numeric Serum Health Serum or Plasma results) System Anion gap in Serum 11.00 Normal (applies Anion Gap [facility] or Plasma mmol/L to non-numeric Health results) System Glomerular 46.76 Normal (applies GFR [facility] filtration to non-numeric Health rate/1.73 sq results) System M.predicted [Volume Rate/Area] in Serum or Plasma by Creatinine-based formula (CKD-EPI) eGFR will provide clinicians with a more accurate indicator of renal function then the serum creatinine. The eGFR is automa tically calculated from an empiric formula (endorsed by the [employer]) which incorporates age, sex, and race.Clinicians may notice surprisingly low GFR's with serum creatinine valueswithin normal range- particularly in elderly wo men (with low muscle mass).In the hospital setting, the eGFR should add an element of safety in drug dosing, in assessing the risk of IV contrast administration, and in assessing vascular risk.The NKF staging system is as follows:Normal: eGFR >90 with no kidney markersStage 1: eGFR >90 with kidney markers*Stage 2: eGFR 60- 89Stage 3: eGFR 30-59Stage 4: eGFR 15-29Stage 5: eGFR <15 (usually requir ing dialysis)*Markers include: Proteinuria, Hematuria, abnormal imaging-studies, or other blood or urine test abnormalities ID Date Data Source [id number] 02/04/2019 04:16:09 PM [facility] System Name Value Range Interpretation Description Data Sup porting Code Source(s) Document(s ) TroponinIQuantitative 0.01 Normal (applies Troponin I [facility] ng/ml to non-numeric Quantitative Health results) System ID Date Data Source [id number] 02/04/2019 04:16:09 PM [facility] Name Value Range Interpretation Description Data Sup porting Code Source(s) Document(s ) Triglyceride 75 mg/dl Normal (applies Triglycerides, [facility] [Mass/volume] to non-numeric Serum Health in Serum or results) System Plasma Optimal = < 100 mg/dLBoderline High = 15 0 - 199 mg/dLHigh = 200 - 499 mg/dLVery High = > 500 mg/dL Cholesterol 201 mg/dl Above high Cholesterol, Serum [facility] [Mass/volume] in normal System Serum or Plasma <200 mg/dL = [id number] - 239 md/dL = Borderline>240 mg/dL = High Risk Cholesterol in HDL 72.0 mg/dL Normal (applies HDL Cholestero l, [facility] [Mass/volume] in to non-numeric Serum Health S ystem Serum or Plasma results) Cholesterol in LDL 114 mg/dL Normal (applies Low Density [facility] [Mass/volume] in to non-numeric Lipoprotein, Healt h System Serum or Plasma results) Calculated OPTIMAL: LESS THAN 100 mg/dLNEAR OPTIMAL : 100 - 129 mg/dLBODERLINE HIGH: 130 - 150 mg/dL Cholesterol in VLDL 15 Normal (applies to VLDL, Serum [facility] [Mass/volume] in Serum non-numeric results) System or Plasma CHDRisk 2.79 Normal (applies to CHD Risk [facility] non-numeric results) System ID Date Data Source [id number] 02/04/2019 04:16:09 PM [facility] Name Value Range Interpretation Code Description Data Nany rce(s) Supporting Document(s ) HbA1C 5.8 % Normal (applies to HbA1C [facility] non-numeric results) System ID Date Data Source [id number] 02/04/2019 04:16:09 PM EST [facility] Name Value Range Interpretation Description Data Sup porting Code Source(s) Document(s ) Leukocytes 10.3 Normal (applies WBC Count [facility] [#/volume] in {10^3_uL to non-numeric Health Unspecified } results) System specimen by Automated count Erythrocytes 5.31 Above high normal RBC Count [facility] [#/volume] in {10^6_uL Health Blood by } System Automated count Hemoglobin 15.5 Normal (applies Hemoglobin [facility] [Mass/volume] in {gm/dL} to non-numeric Health Blood results) System Hematocrit 45.8 % Normal (applies Hematocrit [facility] [Volume to non-numeric Health Fraction] of results) System Blood Erythrocyte mean 86.3 fl Normal (applies MCV [facility] corpuscular to non-numeric Health volume [Entitic results) System volume] by Automated count Erythrocyte mean 29.2 pg Normal (applies MCH [facility] corpuscular to non-numeric Health hemoglobin results) System [Entitic mass] by Automated count Erythrocyte mean 33.8 Normal (applies MCHC [facility] corpuscular {gm/dL} to non-numeric Health hemoglobin results) System concentration [Mass/volume] by Automated count Erythrocyte 15.2 % Above high normal RDW-CV [facility] distribution Health width [Entitic System volume] by Automated count Platelets 235 Normal (applies Platelet [facility] [#/volume] in {10^3_uL to non-numeric Count Health Plasma by } results) System Automated count Platelet mean 11.7 fl Above high normal MPV [facility] volume [Entitic Health volume] in Blood System by Automated count Monocytes 0.7 Normal (applies Monocyte # [facility] [#/volume] in {10^3_uL to non-numeric Health Blood by Manual } results) System count Eosinophils 0.57 Above high normal Eosinophil # [facility] [#/volume] in {10^3_uL Health Blood } System Neutrophils 5.7 Normal (applies Neutrophil # [facility] [#/volume] in {10^3_uL to non-numeric Health Body fluid } results) System Basophils 0.02 Normal (applies Basophil # [facility] [#/volume] in {10^3_uL to non-numeric Health Blood by } results) System Automated count Lymphocyte 3.3 Normal (applies Lymphocyte # [facility] percent {10^3_uL to non-numeric Health differential } results) System count (procedure) Neutrophils/100 55.1 % Normal (applies Neutrophil % [facility] leukocytes in to non-numeric Health Blood by results) System Automated count Monocytes/100 7.0 % Normal (applies Monocyte % [facility] leukocytes in to non-numeric Health Blood results) System Eosinophils/100 5.5 % Above high normal Eosinophil % [facility] leukocytes in [facility] Unspecified System specimen Basophils/100 0.2 % Normal (applies Basophil % [facility] leukocytes in to non-numeric Health Unspecified results) System specimen by Manual count Lymphocytes 32.2 % Normal (applies Lymphocyte % [facility] [#/volume] in to non-numeric Health Blood by results) System Automated count ID Date Data Source [id number] 02/04/2019 04:16:09 PM EST [facility] Name Value Range Interpretation Description Data Sup porting Code Source(s) Document(s ) aPTT in Blood 23.7 Below low normal Activated [facility] by Coagulation {Seconds Partial Health assay } Thromboplastin System Time ID Date Data Source [id number] 02/04/2019 04:16:09 PM EST [facility] Name Value Range Interpretation Description Data Sup porting Code Source(s) Document(s ) Prothrombintim 10.90 Normal (applies Prothrombin [facility](PT) {seconds to non-numeric time (PT) Health System } results) INR in Blood 1.05 Normal (applies INR Result [facility] by Coagulation {Ratio} to non-numeric Health Sys tem assay results) Normal = 0.7-1.1Therapeutic = 2.0-3.0Mec hanical Heart = 3.0-4.5 ID Date Data Source [id number] 02/04/2019 04:16:09 PM EST [facility] Name Value Range Interpretation Description Data Sup porting Code Source(s) Document(s ) Leukocytes 10.4 Normal (applies WBC Count [facility] [#/volume] in {10^3_uL to non-numeric Health Unspecified } results) System specimen by Automated count Erythrocytes 5.36 Above high normal RBC Count [facility] [#/volume] in {10^6_uL Health Blood by } System Automated count Hemoglobin 15.5 Normal (applies Hemoglobin [facility] [Mass/volume] in {gm/dL} to non-numeric Health Blood results) System Hematocrit 46.2 % Above high normal Hematocrit [facility] [Volume Health Fraction] of System Blood Erythrocyte mean 86.2 fl Normal (applies MCV [facility] corpuscular to non-numeric Health volume [Entitic results) System volume] by Automated count Erythrocyte mean 28.9 pg Normal (applies MCH [facility] corpuscular to non-numeric Health hemoglobin results) System [Entitic mass] by Automated count Erythrocyte mean 33.5 Normal (applies MCHC [facility] corpuscular {gm/dL} to non-numeric Health hemoglobin results) System concentration [Mass/volume] by Automated count Erythrocyte 15.5 % Above high normal RDW-CV [facility] distribution Health width [Entitic System volume] by Automated count Platelets 298 Normal (applies Platelet [facility] [#/volume] in {10^3_uL to non-numeric Count Health Plasma by } results) System Automated count Platelet mean 11.6 fl Above high normal MPV [facility] volume [Entitic Health volume] in Blood System by Automated count Monocytes 0.6 Normal (applies Monocyte # [facility] [#/volume] in {10^3_uL to non-numeric Health Blood by Manual } results) System count Eosinophils 0.28 Normal (applies Eosinophil # [facility] [#/volume] in {10^3_uL to non-numeric Health Blood } results) System Neutrophils 6.7 Normal (applies Neutrophil # [facility] [#/volume] in {10^3_uL to non-numeric Health Body fluid } results) System Basophils 0.03 Normal (applies Basophil # [facility] [#/volume] in {10^3_uL to non-numeric Health Blood by } results) System Automated count Lymphocyte 2.8 Normal (applies Lymphocyte # [facility] percent {10^3_uL to non-numeric Health differential } results) System count (procedure) Neutrophils/100 64.7 % Normal (applies Neutrophil % [facility] leukocytes in to non-numeric Health Blood by results) System Automated count Monocytes/100 5.5 % Below low normal Monocyte % [facility] leukocytes in Health Blood System Eosinophils/100 2.7 % Normal (applies Eosinophil % [facility] leukocytes in to non-numeric Health Unspecified results) System specimen Basophils/100 0.3 % Normal (applies Basophil % [facility] leukocytes in to non-numeric Health Unspecified results) System specimen by Manual count Lymphocytes 26.8 % Normal (applies Lymphocyte % [facility] [#/volume] in to non-numeric Health Blood by results) System Automated count ID Date Data Source [id number] 02/04/2019 04:16:09 PM EST [facility] Name Value Range Interpretation Description Data Sup porting Code Source(s) Document(s ) Natriuretic < 10.0 Normal (applies B-Type [facility] peptide B to non-numeric Natriuetic [facility] System [Mass/volume] results) Peptide in Serum or Plasma ID Date Data Source [id number] 02/04/2019 04:16:09 PM EST [facility] Name Value Range Interpretation Description Data Sup porting Code Source(s) Document(s ) Sodium 152 Above high Sodium, Serum [facility] [Moles/volume] in mmol/L normal Health Serum or Plasma System Potassium 4.3 Normal (applies Potassium, [facility] [Mass/volume] in mmol/L to non-numeric Serum Health Serum or Plasma results) System Chloride 109 Above high Chloride, [facility] [Moles/volume] in mmol/L normal Serum Health Serum or Plasma System Carbon dioxide, 24.0 Normal (applies CO2, Serum [facility] total mmol/L to non-numeric Health [Moles/volume] in results) System Serum or Plasma TotalProtein 7.7 Normal (applies Total Protein [facility] mg/dl to non-numeric Health results) System Glucose 90 Normal (applies Glucose, [facility] [Mass/volume] in mg/dL to non-numeric Serum Health Serum or Plasma results) System Urea nitrogen 18 Normal (applies Blood Urea [facility] [Mass/volume] in mg/dl to non-numeric Nitrogen, Health Serum or Plasma results) Serum System Creatinine 1.20 Normal (applies Creatinine, [facility] [Mass/volume] in mg/dl to non-numeric Serum Health Serum or Plasma results) System Alkaline 124 Normal (applies Alkaline [facility] phosphatase {IU/L} to non-numeric Phosphatase, Health isoenzymes results) Serum System [Enzymatic activity/volume] in Serum or Plasma by Heat stability Bilirubin.total 0.5 Normal (applies Bilirubin, [facility] [Mass/volume] in mg/dl to non-numeric Serum Total Health Serum or Plasma results) System DirectBilirubin 0.2 Normal (applies Direct [facility] mg/dl to non-numeric Bilirubin Health results) System Aspartate 15 Normal (applies Aspartate [facility] aminotransferase {IU/L} to non-numeric Transaminase, Heal th [Enzymatic results) Serum System activity/volume] in Serum or Plasma by With P-5'-P Albumin 4.5 Normal (applies Albumin, [facility] [Mass/volume] in {gm/dl} to non-numeric Serum Health Serum or Plasma results) System I.Phosphorus 3.4 Normal (applies I. Phosphorus [facility] mg/dl to non-numeric Health results) System Alanine 9 Normal (applies Alanine [facility] aminotransferase {IU/L} to non-numeric Aminotransfer Heal th [Enzymatic results) ase, Serum System activity/volume] in Serum or Plasma Calcium 11.0 Above high Calcium, [facility] [Mass/volume] in mg/dl normal Total Serum Health Serum or Plasma System A/GRatio 1.41 Normal (applies A/G Ratio [facility] to non-numeric Health results) System Urate 6.4 Normal (applies Uric Acid, [facility] [Mass/volume] in mg/dl to non-numeric Serum Health Serum or Plasma results) System Anion gap in Serum 19.00 Above high Anion Gap [facility] or Plasma mmol/L normal Health System Glomerular 47.65 Normal (applies GFR [facility] filtration to non-numeric Health rate/1.73 sq results) System M.predicted [Volume Rate/Area] in Serum or Plasma by Creatinine-based formula (CKD-EPI) eGFR will provide clinicians with a more accurate indicator of renal function then the serum creatinine. The eGFR is automa tically calculated from an empiric formula (endorsed by the [employer]) which incorporates age, sex, and race.Clinicians may notice surprisingly low GFR's with serum creatinine valueswithin normal range- particularly in elderly wo men (with low muscle mass).In the hospital setting, the eGFR should add an element of safety in drug dosing, in assessing the risk of IV contrast administration, and in assessing vascular risk.The NKF staging system is as follows:Normal: eGFR >90 with no kidney markersStage 1: eGFR >90 with kidney markers*Stage 2: eGFR 60- 89Stage 3: eGFR 30-59Stage 4: eGFR 15-29Stage 5: eGFR <15 (usually requir ing dialysis)*Markers include: Proteinuria, Hematuria, abnormal imaging-studies, or other blood or urine test abnormalities ID Date Data Source [id number] 02/04/2019 04:16:09 PM EST [facility] Name Value Range Interpretation Description Data Sup porting Code Source(s) Document(s ) Phenytoin < 0.50 Below low normal Phenytoin [facility] [Mass/volume] Level, Serum Health System in Serum or Plasma ID Date Data Source [id number] 02/04/2019 04:16:09 PM EST [facility] Name Value Range Interpretation Description Data Sup porting Code Source(s) Document(s ) Phenobarbital 1.8 Below low normal Phenobarbital [facility] [Mass/volume] in ug/ml Level, Serum Health Serum or Plasma System ID Date Data Source [id number] 02/04/2019 04:16:09 PM EST [facility] Name Value Range Interpretation Description Data Sup porting Code Source(s) Document(s ) TroponinIQuantitative 0.01 Normal (applies Troponin I [facility] ng/ml to non-numeric Quantitative Health results) System ID Date Data Source [id number] 02/04/2019 04:16:09 PM EST [facility] Name Value Range Interpretation Description Data Sup porting Code Source(s) Document(s ) Triglyceride 75 mg/dl Normal (applies Triglycerides, [facility] [Mass/volume] to non-numeric Serum Health in Serum or results) System Plasma Optimal = < 100 mg/dLBoderline High = 15 0 - 199 mg/dLHigh = 200 - 499 mg/dLVery High = > 500 mg/dL Cholesterol 180 mg/dl Normal (applies Cholesterol, Serum [facility] [Mass/volume] in to non-numeric Health S ystem Serum or Plasma results) <200 mg/dL = [id number] - 239 md/dL = Borderline>240 mg/dL = High Risk Cholesterol in HDL 71.0 mg/dL Normal (applies HDL Cholestero l, [facility] [Mass/volume] in to non-numeric Serum Health S ystem Serum or Plasma results) Cholesterol in LDL 94 mg/dL Normal (applies Low Density [facility] [Mass/volume] in to non-numeric Lipoprotein, Healt h System Serum or Plasma results) Calculated OPTIMAL: LESS THAN 100 mg/dLNEAR OPTIMAL : 100 - 129 mg/dLBODERLINE HIGH: 130 - 150 mg/dL Cholesterol in VLDL 15 Normal (applies to VLDL, Serum [facility] [Mass/volume] in Serum non-numeric results) System or Plasma CHDRisk 2.54 Normal (applies to CHD Risk [facility] non-numeric results) System ID Date Data Source [id number] 02/04/2019 04:16:09 PM EST [facility] Name Value Range Interpretation Description Data Sup porting Code Source(s) Document(s ) Leukocytes 12.1 Above high normal WBC Count [facility] [#/volume] in {10^3_uL Health Unspecified } System specimen by Automated count Erythrocytes 4.89 Normal (applies RBC Count [facility] [#/volume] in {10^6_uL to non-numeric Health Blood by } results) System Automated count Hemoglobin 14.2 Normal (applies Hemoglobin [facility] [Mass/volume] in {gm/dL} to non-numeric Health Blood results) System Hematocrit 42.5 % Normal (applies Hematocrit [facility] [Volume to non-numeric Health Fraction] of results) System Blood Erythrocyte mean 86.9 fl Normal (applies MCV [facility] corpuscular to non-numeric Health volume [Entitic results) System volume] by Automated count Erythrocyte mean 29.0 pg Normal (applies MCH [facility] corpuscular to non-numeric Health hemoglobin results) System [Entitic mass] by Automated count Erythrocyte mean 33.4 Normal (applies MCHC [facility] corpuscular {gm/dL} to non-numeric Health hemoglobin results) System concentration [Mass/volume] by Automated count Erythrocyte 15.4 % Above high normal RDW-CV [facility] distribution Health width [Entitic System volume] by Automated count Platelets 322 Normal (applies Platelet [facility] [#/volume] in {10^3_uL to non-numeric Count Health Plasma by } results) System Automated count Platelet mean 11.0 fl Above high normal MPV [facility] volume [Entitic Health volume] in Blood System by Automated count Monocytes 0.8 Normal (applies Monocyte # [facility] [#/volume] in {10^3_uL to non-numeric Health Blood by Manual } results) System count Eosinophils 0.28 Normal (applies Eosinophil # [facility] [#/volume] in {10^3_uL to non-numeric Health Blood } results) System Neutrophils 8.8 Above high normal Neutrophil # [facility] [#/volume] in {10^3_uL Health Body fluid } System Basophils 0.02 Normal (applies Basophil # [facility] [#/volume] in {10^3_uL to non-numeric Health Blood by } results) System Automated count Lymphocyte 2.3 Normal (applies Lymphocyte # [facility] percent {10^3_uL to non-numeric Health differential } results) System count (procedure) Neutrophils/100 72.4 % Normal (applies Neutrophil % [facility] leukocytes in to non-numeric Health Blood by results) System Automated count Monocytes/100 6.3 % Normal (applies Monocyte % [facility] leukocytes in to non-numeric Health Blood results) System Eosinophils/100 2.3 % Normal (applies Eosinophil % [facility] leukocytes in to non-numeric Health Unspecified results) System specimen Basophils/100 0.2 % Normal (applies Basophil % [facility] leukocytes in to non-numeric Health Unspecified results) System specimen by Manual count Lymphocytes 18.8 % Below low normal Lymphocyte % [facility] [#/volume] in Health Blood by System Automated count ID Date Data Source [id number] 02/04/2019 04:16:09 PM EST [facility] Name Value Range Interpretation Description Data Sup porting Code Source(s) Document(s ) Sodium 150 Above high Sodium, Serum [facility] [Moles/volume] in mmol/L normal Health Serum or Plasma System Potassium 3.7 Normal (applies Potassium, [facility] [Mass/volume] in mmol/L to non-numeric Serum Health Serum or Plasma results) System Chloride 110 Above high Chloride, [facility] [Moles/volume] in mmol/L normal Serum Health Serum or Plasma System Carbon dioxide, 24.0 Normal (applies CO2, Serum [facility] total mmol/L to non-numeric Health [Moles/volume] in results) System Serum or Plasma TotalProtein 7.2 Normal (applies Total Protein [facility] mg/dl to non-numeric Health results) System Glucose 110 Above high Glucose, [facility] [Mass/volume] in mg/dL normal Serum Health Serum or Plasma System Urea nitrogen 10 Normal (applies Blood Urea [facility] [Mass/volume] in mg/dl to non-numeric Nitrogen, Health Serum or Plasma results) Serum System Creatinine 1.10 Normal (applies Creatinine, [facility] [Mass/volume] in mg/dl to non-numeric Serum Health Serum or Plasma results) System Alkaline 111 Normal (applies Alkaline [facility] phosphatase {IU/L} to non-numeric Phosphatase, Health isoenzymes results) Serum System [Enzymatic activity/volume] in Serum or Plasma by Heat stability Bilirubin.total 0.3 Normal (applies Bilirubin, [facility] [Mass/volume] in mg/dl to non-numeric Serum Total Health Serum or Plasma results) System DirectBilirubin 0.1 Normal (applies Direct [facility] mg/dl to non-numeric Bilirubin Health results) System Aspartate 16 Normal (applies Aspartate [facility] aminotransferase {IU/L} to non-numeric Transaminase, Heal th [Enzymatic results) Serum System activity/volume] in Serum or Plasma by With P-5'-P Albumin 4.1 Normal (applies Albumin, [facility] [Mass/volume] in {gm/dl} to non-numeric Serum Health Serum or Plasma results) System I.Phosphorus 2.7 Normal (applies I. Phosphorus [facility] mg/dl to non-numeric Health results) System Alanine 10 Normal (applies Alanine [facility] aminotransferase {IU/L} to non-numeric Aminotransfer Heal th [Enzymatic results) ase, Serum System activity/volume] in Serum or Plasma Calcium 10.1 Normal (applies Calcium, [facility] [Mass/volume] in mg/dl to non-numeric Total Serum Health Serum or Plasma results) System A/GRatio 1.32 Normal (applies A/G Ratio [facility] to non-numeric Health results) System Urate 5.5 Normal (applies Uric Acid, [facility] [Mass/volume] in mg/dl to non-numeric Serum Health Serum or Plasma results) System Anion gap in Serum 16.00 Above high Anion Gap [facility] or Plasma mmol/L normal Health System Glomerular 52.68 Normal (applies GFR [facility] filtration to non-numeric Health rate/1.73 sq results) System M.predicted [Volume Rate/Area] in Serum or Plasma by Creatinine-based formula (CKD-EPI) eGFR will provide clinicians with a more accurate indicator of renal function then the serum creatinine. The eGFR is automa tically calculated from an empiric formula (endorsed by the [employer]) which incorporates age, sex, and race.Clinicians may notice surprisingly low GFR's with serum creatinine valueswithin normal range- particularly in elderly wo men (with low muscle mass).In the hospital setting, the eGFR should add an element of safety in drug dosing, in assessing the risk of IV contrast administration, and in assessing vascular risk.The NKF staging system is as follows:Normal: eGFR >90 with no kidney markersStage 1: eGFR >90 with kidney markers*Stage 2: eGFR 60- 89Stage 3: eGFR 30-59Stage 4: eGFR 15-29Stage 5: eGFR <15 (usually requir ing dialysis)*Markers include: Proteinuria, Hematuria, abnormal imaging-studies, or other blood or urine test abnormalities ID Date Data Source [id number] 02/04/2019 04:16:09 PM EST [facility] Name Value Range Interpretation Description Data Sup porting Code Source(s) Document(s ) Phenytoin < 0.50 Below low normal Phenytoin [facility] [Mass/volume] Level, Serum [facility] in Serum or Plasma ID Date Data Source [id number] 02/04/2019 04:16:09 PM EST [facility] Name Value Range Interpretation Description Data Sup porting Code Source(s) Document(s ) Phenobarbital 2.1 Below low normal Phenobarbital [facility] [Mass/volume] in ug/ml Level, Serum Health Serum or Plasma System ID Date Data Source [id number] 02/04/2019 04:16:09 PM EST [facility] Name Value Range Interpretation Description Data Sup porting Code Source(s) Document(s ) TroponinIQuantitative 0.01 Normal (applies Troponin I [facility] ng/ml to non-numeric Quantitative Health results) System ID Date Data Source [id number] 02/04/2019 04:16:09 PM EST [facility] Name Value Range Interpretation Description Data Sup porting Code Source(s) Document(s ) Creatine 280 Above high normal Creatine [facility] kinase.MB {IU/L} Kinase, Serum [facility] [Mass/volume ] in Serum or Plasma ID Date Data Source [id number] 02/04/2019 04:16:09 PM EST [facility] Name Value Range Interpretation Description Data Sup porting Code Source(s) Document(s ) Leukocytes 10.0 Normal (applies WBC Count [facility] [#/volume] in {10^3_uL to non-numeric Health Unspecified } results) System specimen by Automated count Erythrocytes 4.76 Normal (applies RBC Count [facility] [#/volume] in {10^6_uL to non-numeric Health Blood by } results) System Automated count Hemoglobin 13.9 Normal (applies Hemoglobin [facility] [Mass/volume] in {gm/dL} to non-numeric Health Blood results) System Hematocrit 41.5 % Normal (applies Hematocrit [facility] [Volume to non-numeric Health Fraction] of results) System Blood Erythrocyte mean 87.2 fl Normal (applies MCV [facility] corpuscular to non-numeric Health volume [Entitic results) System volume] by Automated count Erythrocyte mean 29.2 pg Normal (applies MCH [facility] corpuscular to non-numeric Health hemoglobin results) System [Entitic mass] by Automated count Erythrocyte mean 33.5 Normal (applies MCHC [facility] corpuscular {gm/dL} to non-numeric Health hemoglobin results) System concentration [Mass/volume] by Automated count Erythrocyte 15.7 % Above high normal RDW-CV [facility] distribution Health width [Entitic System volume] by Automated count Platelets 292 Normal (applies Platelet [facility] [#/volume] in {10^3_uL to non-numeric Count Health Plasma by } results) System Automated count Platelet mean 10.6 fl Above high normal MPV [facility] volume [Entitic [facility] volume] in Blood System by Automated count Monocytes 0.8 Normal (applies Monocyte # [facility] [#/volume] in {10^3_uL to non-numeric Health Blood by Manual } results) System count Eosinophils 0.30 Normal (applies Eosinophil # [facility] [#/volume] in {10^3_uL to non-numeric Health Blood } results) System Neutrophils 6.4 Normal (applies Neutrophil # [facility] [#/volume] in {10^3_uL to non-numeric Health Body fluid } results) System Basophils 0.02 Normal (applies Basophil # [facility] [#/volume] in {10^3_uL to non-numeric Health Blood by } results) System Automated count Lymphocyte 2.5 Normal (applies Lymphocyte # [facility] percent {10^3_uL to non-numeric Health differential } results) System count (procedure) Neutrophils/100 63.9 % Normal (applies Neutrophil % [facility] leukocytes in to non-numeric Health Blood by results) System Automated count Monocytes/100 7.7 % Normal (applies Monocyte % [facility] leukocytes in to non-numeric [facility] Blood results) System Eosinophils/100 3.0 % Normal (applies Eosinophil % [facility] leukocytes in to non-numeric Health Unspecified results) System specimen Basophils/100 0.2 % Normal (applies Basophil % [facility] leukocytes in to non-numeric [facility] Unspecified results) System specimen by Manual count Lymphocytes 25.2 % Normal (applies Lymphocyte % [facility] [#/volume] in to non-numeric Health Blood by results) System Automated count ID Date Data Source [id number] 02/04/2019 04:16:09 PM EST [facility] Name Value Range Interpretation Description Data Sup porting Code Source(s) Document(s ) Sodium 148 Above high Sodium, Serum [facility] [Moles/volume] in mmol/L normal Health Serum or Plasma System Potassium 4.6 Normal (applies Potassium, [facility] [Mass/volume] in mmol/L to non-numeric Serum Health Serum or Plasma results) System Chloride 109 Above high Chloride, [facility] [Moles/volume] in mmol/L normal Serum Health Serum or Plasma System Carbon dioxide, 22.0 Normal (applies CO2, Serum [facility] total mmol/L to non-numeric Health [Moles/volume] in results) System Serum or Plasma TotalProtein 6.8 Normal (applies Total Protein [facility] mg/dl to non-numeric Health results) System Glucose 122 Above high Glucose, [facility] [Mass/volume] in mg/dL normal Serum Health Serum or Plasma System Urea nitrogen 10 Normal (applies Blood Urea [facility] [Mass/volume] in mg/dl to non-numeric Nitrogen, Health Serum or Plasma results) Serum System Creatinine 1.00 Normal (applies Creatinine, [facility] [Mass/volume] in mg/dl to non-numeric Serum Health Serum or Plasma results) System Alkaline 106 Normal (applies Alkaline [facility] phosphatase {IU/L} to non-numeric Phosphatase, Health isoenzymes results) Serum System [Enzymatic activity/volume] in Serum or Plasma by Heat stability Bilirubin.total 0.3 Normal (applies Bilirubin, [facility] [Mass/volume] in mg/dl to non-numeric Serum Total Health Serum or Plasma results) System DirectBilirubin 0.1 Normal (applies Direct [facility] mg/dl to non-numeric Bilirubin Health results) System Aspartate 17 Normal (applies Aspartate [facility] aminotransferase {IU/L} to non-numeric Transaminase, Heal th [Enzymatic results) Serum System activity/volume] in Serum or Plasma by With P-5'-P Albumin 3.9 Normal (applies Albumin, [facility] [Mass/volume] in {gm/dl} to non-numeric Serum Health Serum or Plasma results) System I.Phosphorus 3.6 Normal (applies I. Phosphorus [facility] mg/dl to non-numeric Health results) System Alanine 9 Normal (applies Alanine [facility] aminotransferase {IU/L} to non-numeric Aminotransfer Heal th [Enzymatic results) ase, Serum System activity/volume] in Serum or Plasma Calcium 9.7 Normal (applies Calcium, [facility] [Mass/volume] in mg/dl to non-numeric Total Serum Health Serum or Plasma results) System A/GRatio 1.34 Normal (applies A/G Ratio [facility] to non-numeric Health results) System Urate 5.1 Normal (applies Uric Acid, [facility] [Mass/volume] in mg/dl to non-numeric Serum Health Serum or Plasma results) System Anion gap in Serum 17.00 Above high Anion Gap [facility] or Plasma mmol/L normal Health System Glomerular 58.80 Normal (applies GFR [facility] filtration to non-numeric Health rate/1.73 sq results) System M.predicted [Volume Rate/Area] in Serum or Plasma by Creatinine-based formula (CKD-EPI) eGFR will provide clinicians with a more accurate indicator of renal function then the serum creatinine. The eGFR is automa tically calculated from an empiric formula (endorsed by the [employer]) which incorporates age, sex, and race.Clinicians may notice surprisingly low GFR's with serum creatinine valueswithin normal range- particularly in elderly wo men (with low muscle mass).In the hospital setting, the eGFR should add an element of safety in drug dosing, in assessing the risk of IV contrast administration, and in assessing vascular risk.The NKF staging system is as follows:Normal: eGFR >90 with no kidney markersStage 1: eGFR >90 with kidney markers*Stage 2: eGFR 60- 89Stage 3: eGFR 30-59Stage 4: eGFR 15-29Stage 5: eGFR <15 (usually requir ing dialysis)*Markers include: Proteinuria, Hematuria, abnormal imaging-studies, or other blood or urine test abnormalities ID Date Data Source [id number] 02/04/2019 04:16:09 PM EST [facility] Name Value Range Interpretation Description Data Sup porting Code Source(s) Document(s ) TroponinIQuantitative 0.02 Normal (applies Troponin I [facility] ng/ml to non-numeric Quantitative Health results) System ID Date Data Source [id number] 02/04/2019 04:16:09 PM EST [facility] Name Value Range Interpretation Description Data Sup porting Code Source(s) Document(s ) Creatine 269 Above high [facility] {IU/L} Kinase, Serum [facility] [Mass/volume ] in Serum or Plasma ID Date Data Source [id number] 02/04/2019 04:16:09 PM EST [facility] Name Value Range Interpretation Description Data Sup porting Code Source(s) Document(s ) Influenza Negative Normal (applies Influenza A [facility] virus A Ag to non-numeric Virus Antigen Health [Presence] in results) System Unspecified specimen Influenza Negative Normal (applies Influenza B [facility] virus B Ag to non-numeric Virus Antigen [facility] [Presence] in results) System Unspecified specimen Method: ChromatographicNote: Because the sensitivity of rapid flu test varies with the type of antigen and type of specimen , it could produce false negative results. Viral (cell) culture testing should be c onsidered to confirm the results and to assist in detecting other viruses that c an produce similar clinical symptoms. ID Date Data Source [id number] 02/04/2019 04:16:09 PM EST [facility] Name Value Range Interpretation Code Description Data Nany rce(s) Supporting Document(s ) HbA1C 5.9 % Normal (applies to HbA1C [facility] [employer] non-numeric results) System ID Date Data Source [id number] 02/04/2019 04:16:09 PM EST [facility] Name Value Range Interpretation Description Data Sup porting Code Source(s) Document(s ) Amphetamine Negative Normal (applies Amphetamine [facility] [Mass/volume] to non-numeric Level, Urine Health in Urine results) System Cut-off = 1000 ng/mL Barbiturates Positive Abnormal (applies Barbiturate [facility] [Mass/volume] in to non-numeric Screen, Urine Heal th System Urine by Screen results) method Cut-off = 200 ng/mL Benzodiazepines Negative Normal (applies Benzodiazepines, [facility] [Mass/volume] in to non-numeric Urine Health S yste Urine results) Cut-off = 200 ng/mL Cocaine Positive Abnormal (applies Cocaine [facility] metabolites.other to non-numeric Metabolite [facility] [Mass/volume] in Urine results) Screen, Urine Cut-off = 300 ng/mL Methadone Negative Normal (applies to Methadone Level, [facility] [Mass/volume] in non-numeric Urine System Urine results) Cut-off = 300 ng/mL [id number],Urine Negative Normal (applies to Opiate 300, [facility] non-numeric results) Urine System Cut-off = 300 ng/mL Phencyclidine Negative Normal (applies Phencyclidine, Urine [facility] [Mass/volume] in to non-numeric Health S yste Urine results) Cut-off = 25 ng/mL THC Negative Normal (applies to non-numeric resul ts) THC [facility] Cutt-off = 50These results are for medic al treatment only. The positive findings are unconfirmed. Request confirmatory/quanti tative test if needed. ID Date Data Source [id number] 02/04/2019 04:16:09 PM EST [facility] Name Value Range Interpretation Description Data Sup porting Code Source(s) Document(s ) Leukocytes 6.9 Normal (applies WBC Count [facility] [#/volume] in {10^3_uL to non-numeric Health Unspecified } results) System specimen by Automated count Erythrocytes 4.73 Normal (applies RBC Count [facility] [#/volume] in {10^6_uL to non-numeric Health Blood by } results) System Automated count Hemoglobin 13.6 Normal (applies Hemoglobin [facility] [Mass/volume] in {gm/dL} to non-numeric Health Blood results) System Hematocrit 40.9 % Normal (applies Hematocrit [facility] [Volume to non-numeric Health Fraction] of results) System Blood Erythrocyte mean 86.5 fl Normal (applies MCV [facility] corpuscular to non-numeric Health volume [Entitic results) System volume] by Automated count Erythrocyte mean 28.8 pg Normal (applies MCH [facility] corpuscular to non-numeric Health hemoglobin results) System [Entitic mass] by Automated count Erythrocyte mean 33.3 Normal (applies MCHC [facility] corpuscular {gm/dL} to non-numeric Health hemoglobin results) System concentration [Mass/volume] by Automated count Erythrocyte 15.3 % Above high normal RDW-CV [facility] distribution Health width [Entitic System volume] by Automated count Platelets 295 Normal (applies Platelet [facility] [#/volume] in {10^3_uL to non-numeric Count Health Plasma by } results) System Automated count Platelet mean 10.8 fl Above high normal MPV [facility] volume [Entitic [facility] volume] in Blood System by Automated count Monocytes 0.4 Normal (applies Monocyte # [facility] [#/volume] in {10^3_uL to non-numeric Health Blood by Manual } results) System count Eosinophils 0.23 Normal (applies Eosinophil # [facility] [#/volume] in {10^3_uL to non-numeric Health Blood } results) System Neutrophils 3.9 Normal (applies Neutrophil # [facility] [#/volume] in {10^3_uL to non-numeric Health Body fluid } results) System Basophils 0.04 Normal (applies Basophil # [facility] [#/volume] in {10^3_uL to non-numeric Health Blood by } results) System Automated count Lymphocyte 2.3 Normal (applies Lymphocyte # [facility] percent {10^3_uL to non-numeric Health differential } results) System count (procedure) Neutrophils/100 57.0 % Normal (applies Neutrophil % [facility] leukocytes in to non-numeric Health Blood by results) System Automated count Monocytes/100 6.1 % Normal (applies Monocyte % [facility] leukocytes in to non-numeric Health Blood results) System Eosinophils/100 3.3 % Above high normal Eosinophil % [facility] leukocytes in [facility] Unspecified System specimen Basophils/100 0.6 % Normal (applies Basophil % [facility] leukocytes in to non-numeric Health Unspecified results) System specimen by Manual count Lymphocytes 33.0 % Normal (applies Lymphocyte % [facility] [#/volume] in to non-numeric Health Blood by results) System Automated count ID Date Data Source [id number] 02/04/2019 04:16:09 PM EST [facility] Name Value Range Interpretation Description Data Sup porting Code Source(s) Document(s ) Sodium 139 Normal (applies Sodium, Serum [facility] [Moles/volume] in mmol/L to non-numeric Health Serum or Plasma results) System Potassium 4.1 Normal (applies Potassium, [facility] [Mass/volume] in mmol/L to non-numeric Serum Health Serum or Plasma results) System Chloride 109 Above high Chloride, [facility] [Moles/volume] in mmol/L normal Serum Health Serum or Plasma System Carbon dioxide, 22.0 Normal (applies CO2, Serum [facility] total mmol/L to non-numeric Health [Moles/volume] in results) System Serum or Plasma TotalProtein 6.5 Normal (applies Total Protein [facility] mg/dl to non-numeric Health results) System Glucose 151 Above high Glucose, [facility] [Mass/volume] in mg/dL normal Serum Health Serum or Plasma System Urea nitrogen 5 mg/dl Below low normal Blood Urea [facility] [Mass/volume] in Nitrogen, Health Serum or Plasma Serum System Creatinine 0.84 Normal (applies Creatinine, [facility] [Mass/volume] in mg/dl to non-numeric Serum Health Serum or Plasma results) System Alkaline 109 Normal (applies Alkaline [facility] phosphatase {IU/L} to non-numeric Phosphatase, [facility] isoenzymes results) Serum System [Enzymatic activity/volume] in Serum or Plasma by Heat stability Bilirubin.total 0.2 Normal (applies Bilirubin, [facility] [Mass/volume] in mg/dl to non-numeric Serum Total Health Serum or Plasma results) System DirectBilirubin 0.1 Normal (applies Direct [facility] mg/dl to non-numeric Bilirubin Health results) System Aspartate 12 Normal (applies Aspartate [facility] aminotransferase {IU/L} to non-numeric Transaminase, Heal th [Enzymatic results) Serum System activity/volume] in Serum or Plasma by With P-5'-P Albumin 3.6 Below low normal Albumin, [facility] [Mass/volume] in {gm/dl} Serum Health Serum or Plasma System I.Phosphorus 2.5 Normal (applies I. Phosphorus [facility] mg/dl to non-numeric Health results) System Alanine 12 Normal (applies Alanine [facility] aminotransferase {IU/L} to non-numeric Aminotransfer Heal th [Enzymatic results) ase, Serum System activity/volume] in Serum or Plasma Calcium 9.9 Normal (applies Calcium, [facility] [Mass/volume] in mg/dl to non-numeric Total Serum Health Serum or Plasma results) System A/GRatio 1.24 Normal (applies A/G Ratio [facility] to non-numeric Health results) System Urate 4.4 Normal (applies Uric Acid, [facility] [Mass/volume] in mg/dl to non-numeric Serum Health Serum or Plasma results) System Anion gap in Serum 8.00 Normal (applies Anion Gap [facility] or Plasma mmol/L to non-numeric Health results) System Glomerular 71.91 Normal (applies GFR [facility] filtration to non-numeric Health rate/1.73 sq results) System M.predicted [Volume Rate/Area] in Serum or Plasma by Creatinine-based formula (CKD-EPI) eGFR will provide clinicians with a more accurate indicator of renal function then the serum creatinine. The eGFR is automa tically calculated from an empiric formula (endorsed by the [employer]) which incorporates age, sex, and race.Clinicians may notice surprisingly low GFR's with serum creatinine valueswithin normal range- particularly in elderly wo men (with low muscle mass).In the hospital setting, the eGFR should add an element of safety in drug dosing, in assessing the risk of IV contrast administration, and in assessing vascular risk.The NKF staging system is as follows:Normal: eGFR >90 with no kidney markersStage 1: eGFR >90 with kidney markers*Stage 2: eGFR 60- 89Stage 3: eGFR 30-59Stage 4: eGFR 15-29Stage 5: eGFR <15 (usually requir ing dialysis)*Markers include: Proteinuria, Hematuria, abnormal imaging-studies, or other blood or urine test abnormalities ID Date Data Source [id number] 02/04/2019 04:16:09 PM EST [facility] Name Value Range Interpretation Description Data Sup porting Code Source(s) Document(s ) Magnesium 1.9 Normal (applies Magnesium, [facility] [Mass/volume] {mEq/L} to non-numeric Serum Health Syst em in Serum or results) Plasma ID Date Data Source [id number] 02/04/2019 04:16:09 PM EST [facility] Name Value Range Interpretation Description Data Sup porting Code Source(s) Document(s ) Leukocytes 9.2 Normal (applies WBC Count [facility] [#/volume] in {10^3_uL to non-numeric Health Unspecified } results) System specimen by Automated count Erythrocytes 5.19 Normal (applies RBC Count [facility] [#/volume] in {10^6_uL to non-numeric Health Blood by } results) System Automated count Hemoglobin 15.2 Normal (applies Hemoglobin [facility] [Mass/volume] in {gm/dL} to non-numeric Health Blood results) System Hematocrit 44.9 % Normal (applies Hematocrit [facility] [Volume to non-numeric Health Fraction] of results) System Blood Erythrocyte mean 86.5 fl Normal (applies MCV [facility] corpuscular to non-numeric Health volume [Entitic results) System volume] by Automated count Erythrocyte mean 29.3 pg Normal (applies MCH [facility] corpuscular to non-numeric Health hemoglobin results) System [Entitic mass] by Automated count Erythrocyte mean 33.9 Normal (applies MCHC [facility] corpuscular {gm/dL} to non-numeric Health hemoglobin results) System concentration [Mass/volume] by Automated count Erythrocyte 15.2 % Above high normal RDW-CV [facility] distribution Health width [Entitic System volume] by Automated count Platelets 363 Normal (applies Platelet [facility] [#/volume] in {10^3_uL to non-numeric Count Health Plasma by } results) System Automated count Platelet mean 10.2 fl Normal (applies MPV [facility] volume [Entitic to non-numeric Health volume] in Blood results) System by Automated count Monocytes 0.7 Normal (applies Monocyte # [facility] [#/volume] in {10^3_uL to non-numeric Health Blood by Manual } results) System count Eosinophils 0.29 Normal (applies Eosinophil # [facility] [#/volume] in {10^3_uL to non-numeric Health Blood } results) System Neutrophils 5.7 Normal (applies Neutrophil # [facility] [#/volume] in {10^3_uL to non-numeric Health Body fluid } results) System Basophils 0.02 Normal (applies Basophil # [facility] [#/volume] in {10^3_uL to non-numeric Health Blood by } results) System Automated count Lymphocyte 2.6 Normal (applies Lymphocyte # [facility] percent {10^3_uL to non-numeric Health differential } results) System count (procedure) Neutrophils/100 61.5 % Normal (applies Neutrophil % [facility] leukocytes in to non-numeric Health Blood by results) System Automated count Monocytes/100 7.2 % Normal (applies Monocyte % [facility] leukocytes in to non-numeric Health Blood results) System Eosinophils/100 3.2 % Above high normal Eosinophil % [facility] leukocytes in Health Unspecified System specimen Basophils/100 0.2 % Normal (applies Basophil % [facility] leukocytes in to non-numeric Health Unspecified results) System specimen by Manual count Lymphocytes 27.9 % Normal (applies Lymphocyte % [facility] [#/volume] in to non-numeric Health Blood by results) System Automated count ID Date Data Source [id number] 02/04/2019 04:16:09 PM EST [facility] Name Value Range Interpretation Description Data Sup porting Code Source(s) Document(s ) Sodium 144 Normal (applies Sodium, Serum [facility] [Moles/volume] in mmol/L to non-numeric Health Serum or Plasma results) System Potassium 3.8 Normal (applies Potassium, [facility] [Mass/volume] in mmol/L to non-numeric Serum Health Serum or Plasma results) System Chloride 109 Above high Chloride, [facility] [Moles/volume] in mmol/L normal Serum Health Serum or Plasma System Carbon dioxide, 24.0 Normal (applies CO2, Serum [facility] total mmol/L to non-numeric Health [Moles/volume] in results) System Serum or Plasma TotalProtein 7.8 Normal (applies Total Protein [facility] mg/dl to non-numeric Health results) System Glucose 115 Above high Glucose, [facility] [Mass/volume] in mg/dL normal Serum Health Serum or Plasma System Urea nitrogen 10 Normal (applies Blood Urea [facility] [Mass/volume] in mg/dl to non-numeric Nitrogen, Health Serum or Plasma results) Serum System Creatinine 1.00 Normal (applies Creatinine, [facility] [Mass/volume] in mg/dl to non-numeric Serum Health Serum or Plasma results) System Alkaline 138 Above high Alkaline [facility] phosphatase {IU/L} normal Phosphatase, Health isoenzymes Serum System [Enzymatic activity/volume] in Serum or Plasma by Heat stability Bilirubin.total 0.4 Normal (applies Bilirubin, [facility] [Mass/volume] in mg/dl to non-numeric Serum Total Health Serum or Plasma results) System DirectBilirubin 0.1 Normal (applies Direct [facility] mg/dl to non-numeric Bilirubin Health results) System Aspartate 20 Normal (applies Aspartate [facility] aminotransferase {IU/L} to non-numeric Transaminase, Heal th [Enzymatic results) Serum System activity/volume] in Serum or Plasma by With P-5'-P Albumin 4.5 Normal (applies Albumin, [facility] [Mass/volume] in {gm/dl} to non-numeric Serum Health Serum or Plasma results) System I.Phosphorus 3.0 Normal (applies I. Phosphorus [facility] mg/dl to non-numeric Health results) System Alanine 18 Normal (applies Alanine [facility] aminotransferase {IU/L} to non-numeric Aminotransfer Heal th [Enzymatic results) ase, Serum System activity/volume] in Serum or Plasma Calcium 10.9 Above high Calcium, [facility] [Mass/volume] in mg/dl normal Total Serum Health Serum or Plasma System A/GRatio 1.36 Normal (applies A/G Ratio [facility] to non-numeric Health results) System Urate 5.4 Normal (applies Uric Acid, [facility] [Mass/volume] in mg/dl to non-numeric Serum Health Serum or Plasma results) System Anion gap in Serum 11.00 Normal (applies Anion Gap [facility] or Plasma mmol/L to non-numeric Health results) System Glomerular 58.80 Normal (applies GFR [facility] filtration to non-numeric Health rate/1.73 sq results) System M.predicted [Volume Rate/Area] in Serum or Plasma by Creatinine-based formula (CKD-EPI) eGFR will provide clinicians with a more accurate indicator of renal function then the serum creatinine. The eGFR is automa tically calculated from an empiric formula (endorsed by the [employer] ion) which incorporates age, sex, and race.Clinicians may notice surprisingly low GFR's with serum creatinine valueswithin normal range- particularly in elderly wo men (with low muscle mass).In the hospital setting, the eGFR should add an element of safety in drug dosing, in assessing the risk of IV contrast administration, and in assessing vascular risk.The NKF staging system is as follows:Normal: eGFR >90 with no kidney markersStage 1: eGFR >90 with kidney markers*Stage 2: eGFR 60- 89Stage 3: eGFR 30-59Stage 4: eGFR 15-29Stage 5: eGFR <15 (usually requir ing dialysis)*Markers include: Proteinuria, Hematuria, abnormal imaging-studies, or other blood or urine test abnormalities ID Date Data Source [id number] 02/04/2019 04:16:09 PM EST [facility] Name Value Range Interpretation Description Data Sup porting Code Source(s) Document(s ) Phenytoin < 0.50 Below low normal Phenytoin [facility] [Mass/volume] Level, Serum Health System in Serum or Plasma ID Date Data Source [id number] 02/04/2019 04:16:09 PM EST [facility] Name Value Range Interpretation Description Data Sup porting Code Source(s) Document(s ) Phenobarbital 1.5 Below low normal Phenobarbital [facility] [Mass/volume] in ug/ml Level, Serum Health Serum or Plasma System ID Date Data Source [id number] 02/04/2019 04:16:09 PM EST [facility] Name Value Range Interpretation Description Data Source(s ) Supporting Code Document(s ) Lipase 62 U/L Normal (applies to Lipase, Serum [facility] [Enzymatic non-numeric Health System activity/vo results) lume] in Serum or Plasma ID Date Data Source [id number] 02/04/2019 04:16:09 PM EST [facility] Name Value Range Interpretation Description Data Sup porting Code Source(s) Document(s ) Amylase 52 {IU/L} Normal (applies to Amylase, Serum [facility] [Enzymatic non-numeric Health System activity/vo results) lume] in Serum or Plasma ID Date Data Source [id number] 02/04/2019 04:16:09 PM EST [facility] Name Value Range Interpretation Description Data Sup porting Code Source(s) Document(s ) Glucose,UA Negative Normal (applies Glucose, UA [facility] to non-numeric [facility] results) System Protein Negative Normal (applies Protein [facility] [Mass/volume] in to non-numeric Health Serum or Plasma results) System BilirubinUrine NEG Abnormal Bilirubin [facility] (applies to Urine Health non-numeric System results) Urobilinogen 0.2 mg/dL Normal (applies Urobilinogen [facility] [Mass/volume] in to non-numeric UA Health Urine results) System pH.. 5.5 Normal (applies pH.. [facility] {pH_units} to non-numeric Health results) System Ketones NEG Abnormal Ketones UA [facility] [Mass/volume] in (applies to Health Urine non-numeric System results) Nitrate+Nitrite Negative Normal (applies Nitrite [facility] [Mass/volume] in to non-numeric Health Unspecified results) System specimen Leukocyte Negative Normal (applies Leukocyte [facility] esterase to non-numeric Esterase Health [Units/volume] results) Concentration System in Urine Appearance of Clear Normal (applies Urine [facility] Urine to non-numeric Appearance Health results) System Specific gravity > =1.030 Normal (applies Urine Specific [facility] Urine to non-numeric [facility] results) System Color Yellow Normal (applies Color [facility] to non-numeric [facility] results) System UrineBlood NEG Normal (applies Urine Blood [facility] to non-numeric [facility] results) System ID Date Data Source [id number] 02/04/2019 04:16:09 PM EST [facility] Name Value Range Interpretation Description Data Sup porting Code Source(s) Document(s ) Leukocytes 10.7 Normal (applies WBC Count [facility] [#/volume] in {10^3_uL to non-numeric Health Unspecified } results) System specimen by Automated count Erythrocytes 4.65 Normal (applies RBC Count [facility] [#/volume] in {10^6_uL to non-numeric Health Blood by } results) System Automated count Hemoglobin 13.6 Normal (applies Hemoglobin [facility] [Mass/volume] in {gm/dL} to non-numeric Health Blood results) System Hematocrit 40.9 % Normal (applies Hematocrit [facility] [Volume to non-numeric Health Fraction] of results) System Blood Erythrocyte mean 88.0 fl Normal (applies MCV [facility] corpuscular to non-numeric Health volume [Entitic results) System volume] by Automated count Erythrocyte mean 29.2 pg Normal (applies MCH [facility] corpuscular to non-numeric Health hemoglobin results) System [Entitic mass] by Automated count Erythrocyte mean 33.3 Normal (applies MCHC [facility] corpuscular {gm/dL} to non-numeric Health hemoglobin results) System concentration [Mass/volume] by Automated count Erythrocyte 15.9 % Above high normal RDW-CV [facility] distribution [facility] width [Entitic System volume] by Automated count Platelets 349 Normal (applies Platelet [facility] [#/volume] in {10^3_uL to non-numeric Count Health Plasma by } results) System Automated count Platelet mean 10.5 fl Above high normal MPV [facility] volume [Entitic [facility] volume] in Blood System by Automated count Monocytes 0.6 Normal (applies Monocyte # [facility] [#/volume] in {10^3_uL to non-numeric Health Blood by Manual } results) System count Eosinophils 0.06 Normal (applies Eosinophil # [facility] [#/volume] in {10^3_uL to non-numeric Health Blood } results) System Neutrophils 7.1 Normal (applies Neutrophil # [facility] [#/volume] in {10^3_uL to non-numeric Health Body fluid } results) System Basophils 0.03 Normal (applies Basophil # [facility] [#/volume] in {10^3_uL to non-numeric Health Blood by } results) System Automated count Lymphocyte 2.9 Normal (applies Lymphocyte # [facility] percent {10^3_uL to non-numeric Health differential } results) System count (procedure) Neutrophils/100 66.5 % Normal (applies Neutrophil % [facility]i leukocytes in to non-numeric Health Blood by results) System Automated count Monocytes/100 5.2 % Below low normal Monocyte % [facility] leukocytes in Health Blood System Eosinophils/100 0.6 % Below low normal Eosinophil % [facility] leukocytes in Health Unspecified System specimen Basophils/100 0.3 % Normal (applies Basophil % [facility] leukocytes in to non-numeric Health Unspecified results) System specimen by Manual count Lymphocytes 27.4 % Normal (applies Lymphocyte % [facility] [#/volume] in to non-numeric Health Blood by results) System Automated count ID Date Data Source [id number] 02/03/2019 05:37:00 PM [facility] Indication: Head injury.Multiple axial i mages of the brain were obtained from the base of the skull to the vertex without the administration of intravenous contrast. Brain and bone windows are submitted for interpretation.Automated exposure control or low dose technique with the adjustment o f the dose based onpatient's size was utilized.Total DLP for this examination is 681 mGy-cm.Comparison is made withprevious examination of 12/30/2018.E valuation of the sulci and ventricles are unremarkable. mildperiventricular white matter ischemic changes are seen. There is no intra-or extra-axial mass orcollectio n. There is no intracranial hemorrha Mild periventricular white matter ischemic ch anges. Nointracranial hemorrhage. Mild periventricular white matter ischemic ch anges. No intracranial hemorrhagemildge. There is no territorial infarction. No intracranial mass is identified. No midline shift or masseffect is noted. Evaluatio n of the posterior fossa is limited, however, no significant abnormality is seen. Th evisualized portion of the sinuses and mastoid air cells are unremarkable.Impre ssion: mild periventricularwhite matter ischemic changes are seen. No intracr anial hemorrhage. Name Value Range Interpretation Code Description Data [facility] rce(s) Supporting Document(s ) ID Date Data Source [id number] 02/03/2019 02:51:00 PM [facility] Indication: Thyroid nodule.Thyroid ultra sound was performed. The right lobe measures 3.5 x 1.5 x 1.1 cm. It contains an isoe choic nodule in the mid pole measuring 10.8 x 9.4 x 8 mm. The left lobe measures 2.9 x 1.4 x 1cm. The isthmus measures 4.1 mm .Impression: Nodule is noted in the righ t lobe. Name Value Range Interpretation Code Description Data [facility] rce(s) Supporting Document(s ) ID Date Data Source [id number] 02/02/2019 09:21:00 AM [facility] PROCEDURE INFORMATION: Exam: XR Chest, 1 View Exam date and time: 02/02/2019 9:21 AM Age: 53 years old Clinical history: Visi t reason: SOB; TECHNIQUE: Imaging protocol: XR of the chest Views: 1view. COMPARISON : CR Chest Single AP view 02/01/2019 9:09 AM FINDINGS: Lungs: Low lungvolumes. No con solidation.Pleural space: No pleural effusion. No pneumothorax. Heart/Mediast inum: Nocardiomegaly. Bones/joints: No acute fracture. IMPRESSION: No acute findings. Name Value Range Interpretation Code Description [facility] ID Date Data Source [id number] 02/01/2019 09:16:00 AM [facility] PROCEDURE INFORMATION: Exam: XR Chest, 1 View Exam date and time: 02/01/2019 9:17 AM Age: 53 years old Clinical history: Visi t reason: Stroke; TECHNIQUE: Imaging protocol: XR of the chest Views: 1view. COMPARISON: CR Chest Single AP view 12/30/2018 1:15 PM FINDINGS: Lungs:Unrem arkable. No consolidation. Pleural space: Unremarkable. No pleural effusion. No pn eumothorax.Heart/Mediastinum: Unremarkable. No cardiomegaly. Bones/joints: Unremarka ble. IMPRESSION: Noacute cardiopulmonary disease. Name Value Range Interpretation Code Description [facility] ) ID Date Data Source [id number] 02/01/2019 08:19:00 AM [facility] PROCEDURE INFORMATION: Exam: CT Angiogra phy Head With Contrast Exam date and time: 02/01/2019 8:46 AM Age: 53 years old Cli nical history: Visit reason: CVA; TECHNIQUE: Imaging protocol: Computedtomography ang iography of the head with intravenous contrast. 3D rendering: MIP and/or 3D re constructed imageswere created and reviewed. Radiation optimization: All CT scans at this facility use at least one ofthese dose optimization techniques: automated expos ure control; mA and/or kV adjustment per patient size (includestargeted exams whe re dose is matched to clinical indication); or iterative reconstruction.COMPARISON: CT Head without Contrast 12/30/2018 12:35 PM FINDINGS: Right internalcarotid artery: Unremarkable. Intracranial segment is patent with no significant stenosis. No aneurys m. Rightanterior cerebral artery: Unremarkable. No occlusion or significan t stenosis. No aneurysm. Right middlecerebral artery: Unremarkable. No occlusion or significant stenosis. No aneurysm. Right posterior cerebralarter y: Unremarkable. No occlusion or significant stenosis. No aneurysm. Right vertebral artery:Unremarkable. No occlusion or significant stenosis. No aneurysm. Left internal carotid artery:Unremarkable. Intracranial segment is patent with no s ignificant stenosis. No aneurysm. Left anterior cerebralartery: Unremarkable. N o occlusion or significant stenosis. No aneurysm. Left middle cerebral artery:U nremarkable. No occlusion or significant stenosis. No aneurysm. Left posterior c erebral artery:Unremarkable. No occlusion or significant stenosis. No aneurysm. Left vertebral artery: Unremarkable. Noocclusion or significant stenosis. No aneurysm. B asilar artery: Unremarkable. No occlusion or significantstenosis. No aneurysm. IMPRES BEBETO: Unremarkable intracranial vasculature. PRO CEDURE INFORMATION: Exam: CT Angiography Neck With ContrastExam date and time: 019 8:46 AM Age: 53 years old Clinical history: Visit reason: CVA;TECHNIQUE: Im aging protocol: Computed tomography angiography of the neck with intravenous contrast.3D rendering: MIP and/or 3D reconstructed images were created and re viewed. Radiation optimization: AllCT scans at this facility use at least one of the se dose optimization techniques: automated exposure control;mA and/or kV adjustment per patient size (includes targeted exams where dose is matched to clinical indica tion); oriterative reconstruction. COMPARISON: CT Head without Contrast 11/2018 12:35 PMFINDINGS: VASCULATURE: Right common carotid artery: Unremarkable. No stenosis. No dissectionor occlusion. Right internal carotid artery: Unremarkable ex tracranial segment. No stenosis. Nodissection or occlusion. Right external carotid art juancho: Unremarkable. No occlusion or stenosis of the origin.Right vertebral artery: Un remarkable. No stenosis. No dissection or occlusion. Left common carotidartery: Un remarkable. No stenosis. No dissection or occlusion. Left internal carotid artery: Unremarkableextracranial segment. No stenosis. No dissection or occlusion. Le ft external carotid artery: Unremarkable. Noocclusion or stenosis of the origin. Left vertebral artery: Unremarkable. No stenosis. No dissection orocclusion. NEC K: Thyroid: There is a 1 cm hypodensity in the right thyroid lobe.Bones/joints: No acute fracture. Soft tissues: Normal. No significant soft tissue swelling.IMPRESS ION: 1. Unremarkable cervical vasculature. 2. Thyroid hypodensity may represent a cyst ornodule. Further evaluation with ultrasound might be helpful, if clinically indicate d. COMMENT: 1.Reference per NASCET criteria for degree of stenosis: Mild: less than 50% stenosis. Moderate: 50-69% stenosis.Severe: 70-94% stenosis. Near o cclusion: 95-99% stenosis. 2. In patients aged 35 years and older with anincidenta l thyroid nodule equal to or greater than 1.[address], MRI or extrathyroidal US, furtherevaluation with dedicated thyroid US is recommended for patients with norm al life expectancy and withoutcomorbidities. For smaller nodules without suspicious f eatures, no further evaluation or follow up isrecommended. 1 Name Value Range Interpretation Code Description Data Nany rce(s) Supporting Document(s ) ID Date Data Source [id number] 02/01/2019 08:19:00 AM EST [facility] PROCEDURE INFORMATION: Exam: CT Head Wit hout Contrast Exam date and time: 02/01/2019 8:24 AM Age: 53 years old Clinical histo ry: Visit reason: CVA; TECHNIQUE: Imaging protocol: Computed tomography ofthe head without contrast. Radiation optimization: All CT scans at this facility use at [facility]ene [facility] one of thesedose optimization techniques: automated exposure control; mA and/or kV adjustment per patient size (includestargeted exams where dose is ma tched to clinical indication); or iterative reconstruction. Othertechnique: STROKE P ROTOCOL was implemented. COMPARISON: CT Head without Contrast 12/30/2018 12:35 PMFIND INGS: Brain: Normal. No hemorrhage. Unremarkable white matter. No mass effec t. Ventricles:Normal. No ventriculomegaly. Bones/joints: Unremarkable. No acute fra cture. Sinuses: Partially opacifiedbilateral ethmoid air cells. Mastoid air cells: Vi sualized mastoid air cells are well aerated. Soft tissues:Unremarkable. IMPRESSION: N o acute intracranial pathology.ASSESSMENT: ASPECTS ([place] Early [place] Score) is 10.Addendum created by Lorenzo Pope MD on 02/01/2019 8:53:21 LARS T Findings discussed with Dr. Walker at 7:50 AM on 02/01/2019Initial report created on 04/04/2018 8:43:49AM EST PROCEDURE INFORMATION: Exam: CT Head Without Contr ast Exam date and time: 02/01/2019 8:24 AMAge: 53 years old Clinical history: Vi sit reason: CVA; TECHNIQUE: Imaging protocol: Computedtomography of the head without c ontrast. Radiation optimization: All CT scans at this facility use at leastone of thes e dose optimization techniques: automated exposure control; mA and/or kV adjustmen t per patientsize (includes targeted exams where dose is matched to clinical indica tion); or iterative reconstruction.Other technique: STROKE PROTOCOL was implement ed. COMPARISON: CT Head without Contrast 12/30/201812:35 PM FINDINGS: Brain: Norm al. No hemorrhage. Unremarkable white matter. No mass effect.Ventricles: Normal. No ve ntriculomegaly. Bones/joints: Unremarkable. No acute fracture. Sinuses:Partially opa cified bilateral ethmoid air cells. Mastoid air cells: Visualized mastoid air cells are well aerated.Soft tissues: Unremarkable. IMPRESSION: No acute intracranial pathol ogy.ASSESSMENT:ASPECTS ([place] Stroke Program Early CT Score) is 10.Addendum c reated by Lorenzo Pope MD on02/04/2019 10:36:47 AM EST Findings discussed with Dr. Walker at 8:50 AM on 02/01/2019Addendum createdby Lorenzo Pope MD on 2018 8:53:21 AM EST Findings discussed with Dr. Walker at 7:50 AM on02/01/2019Initial report created on 02/01/2019 8:43:49 AM EST PROCEDURE INFORMATION: Exam: CT HeadWith out Contrast Exam date and time: 02/01/2019 8:24 AM Age: 53 years old Clinical histo ry: Visit reason:CVA; TECHNIQUE: Imaging protocol: Computed tomography of the hea d without contrast. Radiationoptimization: All CT scans at this facility use at darlene st one of these dose optimization techniques: automatedexposure control; mA and/or kV adjustment per patient size (includes targeted exams where dose is matched maria fernanda linical indication); or iterative reconstruction. Other technique: STROKE PROTOCOL was implemented.COMPARISON: CT Head without Contrast 12/30/2018 12:35 PM FIN DINGS: Brain: Normal. Nohemorrhage. Unremarkable white matter. No mass effec t. Ventricles: Normal. No ventriculomegaly.Bones/joints: Unremarka ble. No acute fracture. Sinuses: Partially opacified bilateral ethmoid air cells.Ma stoid air cells: Visualized mastoid air cells are well aerated. Soft tissues: Unremark able.IMPRESSION: No acute intracranial pathology.ASSESSMENT: ASPECTS ([facility] CT Score) is 10. Name Value Range Interpretation Code Description Data Nany rce(s) Supporting Document(s ) ID Date Data Source [id number] 01/22/2019 04:30:00 PM [facility] Name Value Range Interpretation Description Data Sup porting Code Source(s) Document(s ) Phenobarbital 1.1 [facility] [Mass/volume] in ug/mL Hospital Serum or Plasma ID Date Data Source [id number] 01/22/2019 04:30:00 PM [facility] Name Value Range Interpretation Description Data Sup porting Code Source(s) Document(s ) Phenytoin < 0.5 [facility] [Mass/volume] ug/mL Hospital in Serum or Plasma ID Date Data Source [id number] 01/22/2019 04:30:00 PM [facility] TEST PERFORMED BY [facility] [employer] ULTRA SENSITIVE CENTAUR CHEMILUMINESCENCE METHOD. Name Value Range Interpretation Description Data Sup porting Code Source(s) Document(s ) Troponin 0.01 [facility] I.cardiac ng/mL Hospital [Mass/volume ] in Serum or Plasma ID Date Data Source [id number] 01/22/2019 04:30:00 PM [facility] Name Value Range Interpretation Description Data Sup porting Code Source(s) Document(s ) Lactate 1.9 [facility] [Moles/volum mmol/L Hospital e] in Serum or Plasma ID Date Data Source [id number] 01/22/2019 04:30:00 PM [facility] Name Value Range Interpretation Description Data Sup porting Code Source(s) Document(s ) Aspartate 18 U/L White aminotransferase [place] [Enzymatic Hospital activity/volume] in Serum or Plasma ID Date Data Source [id number] 01/22/2019 04:30:00 PM [facility] Name Value Range Interpretation Description Data Sup porting Code Source(s) Document(s ) Alanine 17 U/L White aminotransferase [place] [Enzymatic Hospital activity/volume] in Serum or Plasma ID Date Data Source [id number] 01/22/2019 04:30:00 PM [facility] Name Value Range Interpretation Description Data Sup porting Code Source(s) Document(s ) Alkaline 120 U/L [facility] phosphatase Hospital [Enzymatic activity/volume ] in Serum or Plasma ID Date Data Source [id number] 01/22/2019 04:30:00 PM [facility] Value Range Interpretation Description Data Sup porting Code Source(s) Document(s ) Bilirubin.t 0.4 mg/dL [facility] [Mass/volum e] in Serum or Plasma ID Date Data Source [id number] 01/22/2019 04:30:00 PM [facility] Name Value Range Interpretation Code Description Data Nany rce(s) Supporting Document(s ) Albumin/Glob 2.0 [facility] ulin [Mass Hospital Ratio] in Serum or Plasma ID Date Data Source [id number] 01/22/2019 04:30:00 PM [facility] Name Value Range Interpretation Description Data Sup porting Code Source(s) Document(s ) Albumin 4.8 g/dL [facility] [Mass/volume Hospital ] in Serum or Plasma ID Date Data Source [id number] 01/22/2019 04:30:00 PM [facility] Name Value Range Interpretation Description Data Sup porting Code Source(s) Document(s ) Protein 7.2 g/dL [facility] [Mass/volume Hospital ] in Serum or Plasma ID Date Data Source [id number] 01/22/2019 04:30:00 PM EST [facility] Name Value Range Interpretation Description Data Sup porting Code Source(s) Document(s ) Calcium 10.4 [facility] [Mass/volume mg/dL Hospital ] in Serum or Plasma ID Date Data Source [id number] 01/22/2019 04:30:00 PM EST [facility] Name Value Range Interpretation Code Description Data Nany rce(s) Supporting Document(s ) Urea 14.4 [facility] nitrogen/Cre Hospital atinine [Mass Ratio] in Serum or Plasma ID Date Data Source [id number] 01/22/2019 04:30:00 PM EST [facility] Name Value Range Interpretation Description Data Sup porting Code Source(s) Document(s ) Creatinine 0.9 mg/dL [facility] [Mass/volume] Hospital in Serum or Plasma ID Date Data Source [id number] 01/22/2019 04:30:00 PM EST [facility] Name Value Range Interpretation Description Data Sup porting Code Source(s) Document(s ) Urea 13 mg/dL [facility] nitrogen [facility] [Mass/volume ] in Serum or Plasma ID Date Data Source [id number] 01/22/2019 04:30:00 PM EST [facility] Name Value Range Interpretation Code Description Data Nany rce(s) Supporting Document(s ) Anion gap in 14 [facility] Serum or Hospital Plasma ID Date Data Source [id number] 01/22/2019 04:30:00 PM EST [facility] Name Value Range Interpretation Description Data Sup porting Code Source(s) Document(s ) Carbon 29 mmol/L [facility] dioxide, Hospital total [Moles/volu me] in Serum or Plasma ID Date Data Source [id number] 01/22/2019 04:30:00 PM EST [facility] Name Value Range Interpretation Description Data Sup porting Code Source(s) Document(s ) Chloride 102 [facility] [Moles/volum mmol/L Hospital e] in Serum or Plasma ID Date Data Source [id number] 01/22/2019 04:30:00 PM EST [facility] Name Value Range Interpretation Description Data Sup porting Code Source(s) Document(s ) Potassium 4.1 [facility] [Moles/volume mmol/L Hospital ] in Serum or Plasma ID Date Data Source [id number] 01/22/2019 04:30:00 PM EST [facility] Name Value Range Interpretation Description Data Sup porting Code Source(s) Document(s ) Sodium 141 mmol/L [facility] [Moles/volu Hospital me] in Serum or Plasma ID Date Data Source [id number] 01/22/2019 04:30:00 PM EST [facility] Name Value Range Interpretation Description Data Sup porting Code Source(s) Document(s ) Glucose 175 mg/dL [place] [[facility] ] in Serum or Plasma ID Date Data Source [id number] 01/22/2019 04:30:00 PM EST [facility] Name Value Range Interpretation Code Description Data Supporting Source(s) Document(s ) NUCLEATED RBCS 0.0 % [place] (AUTO Hospital DIFF%)DIS ID Date Data Source [id number] 01/22/2019 04:30:00 PM EST [facility] Name Value Range Interpretation Description Data Sup porting Code Source(s) Document(s ) Differential AUTOMATED [facility] cell count Hospital method - Blood ID Date Data Source [id number] 01/22/2019 04:30:00 PM EST [facility] Name Value Range Interpretation Description Data Sup porting Code Source(s) Document(s ) Immature 0.04 [facility] granulocytes 10*3/uL Hospital [#/volume] in Blood by Automated count ID Date Data Source [id number] 01/22/2019 04:30:00 PM EST [facility] Name Value Range Interpretation Description Data Sup porting Code Source(s) Document(s ) Basophils 0.08 [facility] [#/volume] in 10*3/uL Hospital Blood by Automated count ID Date Data Source [id number] 01/22/2019 04:30:00 PM EST [facility] Name Value Range Interpretation Description Data Sup porting Code Source(s) Document(s ) Eosinophils 0.09 [place] [#/volume] in 10*3/uL Hospital Blood by Automated count ID Date Data Source [id number] 01/22/2019 04:30:00 PM EST [facility] Name Value Range Interpretation Description Data Sup porting Code Source(s) Document(s ) Monocytes 0.74 [place] [#/volume] in 10*3/uL Hospital Blood by Automated count ID Date Data Source [id number] 01/22/2019 04:30:00 PM EST [facility] Name Value Range Interpretation Description Data Sup porting Code Source(s) Document(s ) Lymphocytes 3.40 [place] [#/volume] in 10*3/uL Hospital Blood by Automated count ID Date Data Source [id number] 01/22/2019 04:30:00 PM EST [facility] Name Value Range Interpretation Description Data Sup porting Code Source(s) Document(s ) Neutrophils 6.69 [facility] [#/volume] in 10*3/uL Hospital Blood by Automated count ID Date Data Source [id number] 01/22/2019 04:30:00 PM EST [facility] Name Value Range Interpretation Description Data Sup porting Code Source(s) Document(s ) Nucleated 0.0 % [facility] erythrocytes/10 Hospital 0 leukocytes [Ratio] in Blood by Automated count ID Date Data Source [id number] 01/22/2019 04:30:00 PM EST [facility] Name Value Range Interpretation Description Data Sup porting Code Source(s) Document(s ) Immature 0.4 % [facility] granulocytes/10 Hospital 0 leukocytes in Blood by Automated count ID Date Data Source [id number] 01/22/2019 04:30:00 PM EST [facility] Name Value Range Interpretation Description Data Sup porting Code Source(s) Document(s ) Basophils/100 0.7 % [facility] leukocytes in Hospital Blood by Automated count ID Date Data Source [id number] 01/22/2019 04:30:00 PM EST [facility] Value Range Interpretation Description Data Sup porting Code Source(s) Document(s ) Eosinophils/100 0.8 % [place] leukocytes in Hospital Blood by Automated count ID Date Data Source [id number] 01/22/2019 04:30:00 PM [facility] Value Range Interpretation Description Data Sup porting Code Source(s) Document(s ) Monocytes/100 6.7 % [place] leukocytes in Hospital Blood by Automated count ID Date Data Source [id number] 01/22/2019 04:30:00 PM [facility] Name Value Range Interpretation Description Data Sup porting Code Source(s) Document(s ) Lymphocytes/10 30.8 % [place] 0 leukocytes Hospital in Blood by Automated count ID Date Data Source [id number] 01/22/2019 04:30:00 PM EST [facility] Name Value Range Interpretation Description Data Sup porting Code Source(s) Document(s ) Neutrophils/10 60.6 % [facility] 0 leukocytes Hospital in Blood by Automated count ID Date Data Source [id number] 01/22/2019 04:30:00 PM [facility] Value Range Interpretation Description Data Sup porting Code Source(s) Document(s ) Platelet mean 10.6 fL [facility] volume [facility] [Entitic volume] in Blood by Automated count ID Date Data Source [id number] 01/22/2019 04:30:00 PM [facility] Value Range Interpretation Description Data Sup porting Code Source(s) Document(s ) Platelets 368 [place] [#/volume] in 10*3/uL Hospital Blood by Automated count ID Date Data Source [id number] 01/22/2019 04:30:00 PM [facility] Value Range Interpretation Description Data Sup porting Code Source(s) Document(s ) Erythrocyte 14.6 % [facility] distribution Hospital width [Ratio] by Automated count ID Date Data Source [id number] 01/22/2019 04:30:00 PM [facility] Value Range Interpretation Description Data Sup porting Code Source(s) Document(s ) Erythrocyte mean 32.3 [place] corpuscular g/dL Hospital hemoglobin concentration [Mass/volume] by Automated count ID Date Data Source [id number] 01/22/2019 04:30:00 PM [facility] Value Range Interpretation Description Data Sup porting Code Source(s) Document(s ) Erythrocyte 27.8 pg [facility] corpuscular hemoglobin [Entitic mass] by Automated count ID Date Data Source [id number] 01/22/2019 04:30:00 PM [facility] Value Range Interpretation Description Data Sup porting Code Source(s) Document(s ) Erythrocyte 86.2 fL [facility] corpuscular volume [Entitic volume] by Automated count ID Date Data Source [id number] 01/22/2019 04:30:00 PM [facility] Name Value Range Interpretation Description Data Sup porting Code Source(s) Document(s ) Hematocrit 48.6 % [place] [Volume Hospital Fraction] of Blood by Automated count ID Date Data Source [id number] 01/22/2019 04:30:00 PM [facility] Name Value Range Interpretation Description Data Sup porting Code Source(s) Document(s ) Hemoglobin 15.7 g/dL [facility] [Mass/[facility] in Blood ID Date Data Source [id number] 01/22/2019 04:30:00 PM [facility] Name Value Range Interpretation Description Data Sup porting Code Source(s) Document(s ) Erythrocytes 5.64 [place] [#/volume] in 10*6/uL Hospital Blood by Automated count ID Date Data Source [id number] 01/22/2019 04:30:00 PM [facility] Name Value Range Interpretation Description Data Sup porting Code Source(s) Document(s ) Leukocytes 11.0 [place] [#/volume] in 10*3/uL Hospital Blood by Automated count ID Date Data Source [id number] 12/30/2018 01:22:00 PM [facility] Chest radiographClinical history: Chest painPrevious study: Chest radiograph performed 07/29/14. Chest radiograph perf ormed 05/11/15.Findings:Single portable AP view of the chest wasobtained.The cardio mediastinal silhouette is mildly prominent. There is shallow inspiration withsuggest ion of mild bilateral basilar atelectasis. The osseous structures demonstrate no ac utefindings.Impression:Shallow inspiration with suggestion of mild bilateral basila r atelectasis. Name Value Range Interpretation Code Description Data Nany rce(s) Supporting Document(s ) ID Date Data Source [id number] 12/30/2018 12:33:00 PM [facility] CT of the head without contrastClinical History: DizzinessPrevious study: CT of the head performed 05/11/15. CT of the head performed 08/12/13.Technique: Mutiple axial contiguous images of the head wereobtain ed from the base of the skull to the vertex without intravenous contrast.RADIATION D OSE: This scanis performed using automatic exposure control, radiation dose reducti on algorithms, in order to maintaindiagnostic quality images, while using lowest possi ble, patient dose techniques. The total DLP for thisexamination is estimated at 771. 9 mGy-cm.Findings: There is evrr-sh-eohdmjih motion artifactwhich limits evaluation.T he ventricles and basilar cisterns are normal in appearance. There is a smallhypodens e focus along the anterior limb of right internal capsule which may reflect an ol d lacunar infarct. Noacute intracranial hemorrhage, mass effect, or midline shif t is identified. There is no evidence of acutecerebral infarction in a major vasc ular distribution. The orbits are unremarkable. There is moderate topromi nent mucosal thickening involving the ethmoid and frontal sinuses as well as the right maxillary sinus.There is mild involving the left maxillary sinus and sphenoid sinuse s. No acute osseous abnormalities areseen.Impression:Zxqq-gc-ojdqdwzy nika on artifact which limits evaluation. Cannot exclude anold right anterior basal gangl ia lacunar infarct. No evidence of acute intracranial hemorrhage or infarction.Mo derate to prominent bilateral paranasal sinus mucosal disease as described. Name Value Range Interpretation Code Description Data Nany rce(s) Supporting Document(s ) Procedure Social History Code Duration Value Status Description Data Source(s ) Caffeine Use 05/24/2018 completed NEXTGEN (Chang nt Details 12:00:00 AM EDT [facility]) Smoking 05/24/2018 Unknown if completed Unknown if ever NEXTGEN ( [facility] 12:00:00 AM EDT ever smoked smoked [facility]) Smoking Unknown if completed Unknown if ever [facility] Smoking Unknown if completed Unknown if ever [facility] Smoking Unknown if completed Unknown if ever [facility] Alcohol Use completed NEXTGEN (Ronnie t Details [facility]) Vital Signs ID Date Data Source UNK Name Value Range Interpretation Code Description Data Source(s) Body mass index 35.2 kg/m2 35.2 kg/m2 [facility] (BMI) [Ratio] [facility] Body temperature 36.6 [place] 0 - 99.9 Normal (applies to 36.6 [place] non-numeric Health System results) Body temperature 98 [degF] 0 - 200 Normal (applies to 98 [degF] [facility]) Diastolic blood 80 mm[Hg] 0 - 999 Normal (applies to 80 mm[Hg] [facility] results) Systolic blood 138 mm[Hg] 0 - 999 Normal (applies to 138 mm[Hg] [facility] non-numeric [facility] results) Oxygen saturation 100 % 0 - 999 Normal (applies to 100 % [facility] in Arterial blood non-[facility] Health System by Pulse oximetry results) Respiratory rate 19 0 - 999 Above high normal 19 [facility] System Heart rate 66 0 - 999 Normal (applies to 66 [facility] non-numeric [facility] results) Body weight 99.6 kg 99.6 kg [facility] Body surface area 2.1 m2 2.1 m2 [facility] Derived from [employer] m formula Body height 167.64 cm 167.64 cm [facility] System Body temperature 36.6 [place] 0 - 99.9 Normal (applies to 36.6 K[place] [facility] non-numeric Health System results) Body temperature 98 [degF] 0 - 200 Normal (applies to 98 [degF] [facility] non-numeric Health System results) Diastolic blood 88 mm[Hg] 0 - 999 Above high normal 88 mm[Hg] [facility] Systolic blood 150 mm[Hg] 0 - 999 Above high normal 150 mm[Hg] [facility] pressure Health System Oxygen saturation 100 % 0 - 999 Normal (applies to 100 % [facility] in Arterial blood non-[facility] Health System by Pulse oximetry results) Respiratory rate 17 0 - 999 Normal (applies to 17 [facility] non-numeric Health System results) Heart rate 60 0 - 999 Below low normal 60 [facility] Body mass index 41.7 kg/m2 41.7 kg/m2 [facility] ([facility] [Ratio] [facility] Syst Body weight 117.9 kg 117.9 kg [facility] System Body height 167.64 cm 167.64 cm [facility] System Body surface area 2.1 m2 2.1 m2 [facility] Derived from [employer] m formula Respiratory rate 17 0 - 999 Normal (applies to 17 [facility] non-numeric Health System results) Heart rate 60 0 - 999 Below low normal 60 [facility] Diastolic blood 83 mm[Hg] 0 - 999 Normal (applies to 83 mm[Hg] [facility] non-numeric [facility] results) Systolic blood 123 mm[Hg] 0 - 999 Normal (applies to 123 mm[Hg] [facility] pressure non-numeric [facility] results) Body surface area 2.2 m2 2.2 m2 [facility] Derived from [employer] formula Body mass index 41.9 kg/m2 41.9 kg/m2 [facility] ([facility]) [Ratio] [facility] Body weight 117.93 kg 117.93 kg [facility] System Body height 167.64 cm 167.64 cm [facility] System Oxygen saturation 97 % 0 - 999 Normal (applies to 97 % [facility] in Arterial blood non-[facility] Health System by Pulse oximetry results) Body mass index 40.5 kg/m2 40.5 kg/m2 [facility] ([facility]) [Ratio] [facility] Syst Body temperature 36.8 [place] 0 - 99.9 Normal (applies to 36.8 K[place] [facility] non-numeric Health System results) Body temperature 98.3 0 - 200 Normal (applies to 98.3 [degF] [facility] [[facility] results) Diastolic blood 95 mm[Hg] 0 - 999 Above high normal 95 mm[Hg] [facility] Systolic blood 150 mm[Hg] 0 - 999 Above high normal 150 mm[Hg] [facility] System Oxygen saturation 97 % 0 - 999 Normal (applies to 97 % [facility] in Arterial blood [facility] by Pulse oximetry results) Respiratory rate 20 0 - 999 Above high normal 20 [facility] System Heart rate 58 0 - 999 Below low normal 58 [facility] System Body weight 75.74 kg 75.74 kg [facility] System Body height 167 cm 167 cm [facility] Body surface area 2.1 m2 2.1 m2 [facility] Derived from [employer] formula Body temperature 36.4 [place] 0 - 99.9 Below low normal 36.4 [facility] System Body temperature 97.6 0 - 200 Normal (applies to 97.6 [degF] [facility] [degF] non-numeric Health System results) Diastolic blood 70 mm[Hg] 0 - 999 Normal (applies to 70 mm[Hg] [facility] pressure non-numeric Health System results) Systolic blood 150 mm[Hg] 0 - 999 Above high normal 150 mm[Hg] [facility] Oxygen saturation 97 % 0 - 999 Normal (applies to 97 % [facility] in Arterial blood non-numeric Health System by Pulse oximetry results) Respiratory rate 18 0 - 999 Above high normal 18 M [facility] Health System Heart rate 78 0 - 999 Normal (applies to 78 [facility] non-numeric [facility] System results) Body surface area 2.1 m2 2.1 m2 [facility] Derived from [facility] m formula Body mass index 38.7 kg/m2 38.7 kg/m2 [facility] (BMI) [Ratio] Health Syst Body weight 108.86 kg 108.86 kg [facility] Health System Body height 167.64 cm 167.64 cm [facility] System Diastolic blood 91 mm[Hg] 91 mm[Hg] [facility] Hospital Systolic blood 136 mm[Hg] 136 mm[Hg] [facility] Respiratory rate 20 /min 20 /min [facility] Heart rate 89 /min 89 /min [facility] Body temperature 36.40688 36.75319 K[facility] Body temperature 97.8 97.8 [degF] [facility] [degF] [facility] Body mass index 38.7 kg/m2 38.7 kg/m2 [facility] (BMI) [Ratio] Hospital Body weight 240 240 [lb_av] [place] [lb_av] [facility] Body temperature 98.6 0 - 200 Normal (applies to 98.6 [degF] [facility] [degF] non-numeric Health System results) Body temperature 37 [place] 0 - 99.9 Normal (applies to 37 [place] [facility] non-numeric [facility] System results) Diastolic blood 89 mm[Hg] 0 - 999 Above high normal 89 mm[Hg] [facility] Systolic blood 145 mm[Hg] 0 - 999 Above high normal 145 mm[Hg] [facility] Oxygen saturation 97 % 0 - 999 Normal (applies to 97 % [facility] in Arterial blood non-numeric Health System by Pulse oximetry results) Respiratory rate 18 0 - 999 Above high normal [address] [facility] Heart rate 67 0 - 999 Normal (applies to 67 [facility] non-numeric [facility] results) Body surface area 1.9 m2 1.9 m2 [facility] ore Derived from Health Syste m formula Body mass index 34.7 kg/m2 34.7 kg/m2 [facility] e (BMI) [Ratio] [facility] Body weight 88.9 kg 88.9 kg [facility] System Body height 160.02 cm 160.02 cm [facility] Diastolic blood 85 mm[Hg] 85 mm[Hg] [facility] Hospital Systolic blood 129 mm[Hg] 129 mm[Hg] [facility] Respiratory rate 20 /min 20 /min [facility] Heart rate 64 /min 64 /min [facility] Body temperature 36.07497 36.33442 K[place] [facility] Body temperature 98.2 98.2 [degF] [facility] [deg] [facility] Respiratory rate 20 /min 20 /min [facility] Body mass index 35.0 kg/m2 35.0 kg/m2 [facility] (BMI) [Ratio] Hospital Body weight 221.12 221.12 [lb_av] [facility] [lb_av] [facility] Body mass index 33.1 kg/m2 33.1 kg/m2 [facility] (BMI) [Ratio] Hospital Body weight 205 205 [lb_av] [place] [lb_av] [facility] Diastolic blood 103 mm[Hg] 103 mm[Hg] [facility] Hospital Systolic blood 156 mm[Hg] 156 mm[Hg] [facility] Respiratory rate 18 /min 18 /min [facility] Heart rate 74 /min 74 /min [facility] Body temperature 36.79516 36.76800 K[place] [facility] Body temperature 97.9 97.9 [degF] [facility] [degF] [facility] Diastolic blood 98 mm[Hg] 0 - 999 Above high normal 98 mm[Hg] [facility] Systolic blood 166 mm[Hg] 0 - 999 Above high normal 166 mm[Hg] [facility] Health System Oxygen saturation 98 % 0 - 999 Normal (applies to 98 % [facility] in Arterial blood non-numeric Health System by Pulse oximetry results) Respiratory rate 17 0 - 999 Normal (applies to 17 [facility] non-numeric Health System results) Heart rate 71 0 - 999 Normal (applies to 71 [facility] non-numeric [facility] results) Body surface area 1.9 m2 1.9 m2 [facility] Derived from [employer] m formula Body mass index 31.6 kg/m2 31.6 kg/m2 [facility] (BMI) [Ratio] [facility] Body weight 88.9 kg 88.9 kg [facility] System Body height 167.64 cm 167.64 cm [facility] System Body temperature 98 [degF] 0 - 200 Normal (applies to 98 [degF] [facility] non-numeric Health System results) Body temperature 36.6 [place] 0 - 99.9 Normal (applies to 36.6 K[place] [facility] non-numeric Health System results) Body temperature 98.8 0 - 200 Normal (applies to 98.8 [degF] [facility] [degF] non-numeric Health System results) Body temperature 37.1 [place] 0 - 99.9 Normal (applies to 37.1 K[place] [facility] non-numeric Health System results) Diastolic blood 81 mm[Hg] 0 - 999 Normal (applies to 81 mm[Hg] [facility] pressure non-numeric [facility] System results) Systolic blood 138 mm[Hg] 0 - 999 Normal (applies to 138 mm[Hg] [facility] pressure non-numeric [facility] System results) Deprecated Oxygen 99 % 0 - 999 Normal (applies to 99 % [facility] saturation in non-numeric [facility] tem Capillary blood results) by Oximetry Respiratory rate 17 0 - 999 Normal (applies to 17 [facility] non-numeric Health System results) Heart rate 86 0 - 999 Normal (applies to 86 [facility] non-numeric [facility] results) Body surface area 1.9 m2 1.9 m2 [facility] Derived from [employer] m formula Body mass index 30.6 kg/m2 30.6 kg/m2 [facility] (BMI) [Ratio] [facility] Body weight 86.18 kg 86.18 kg [facility] Measured Health System Body height 167.64 cm 167.64 cm [facility] System Diastolic blood 89 mm[Hg] 0 - 999 Above high normal 89 mm[Hg] [facility] Systolic blood 138 mm[Hg] 0 - 999 Normal (applies to 138 mm[Hg] [facility] pressure non-numeric Health System results) Deprecated Oxygen 100 % 0 - 999 Normal (applies to 100 % [facility] saturation in non-numeric Health Sys tem Capillary blood results) by Oximetry Respiratory rate 16 0 - 999 Normal (applies to 16 [facility] non-numeric [facility] System results) Heart rate 89 0 - 999 Normal (applies to 89 [facility] non-numeric [facility] results) Body surface area 2.2 m2 2.2 m2 [facility] Derived from [facility] formula Body mass index 42.7 kg/m2 42.7 kg/m2 [facility] (BMI) [Ratio] [facility] Body weight 120.2 kg 120.2 kg [facility] Body height 167.64 cm 167.64 cm [facility] System Body temperature 96 [degF] 0 - 200 Below low normal 96 [degF] [facility] Body temperature 35.5 [place] 0 - 99.9 Below low normal 35.5 [place] [facility] Body surface area 2.1 m2 2.1 m2 [facility] Derived from [facility] Sy[facility] m formula Body mass index 36.4 kg/m2 36.4 kg/m2 [facility] (BMI) [Ratio] [facility] Body weight 102.51 kg 102.51 kg [facility] Measured Health System Body height 167.64 cm 167.64 cm [facility] System Body temperature 97.9 0 - 200 Normal (applies to 97.9 [degF] [facility] [degF] non-numeric Health [facility] results) Body temperature 36.6 [place] 0 - 99.9 Normal (applies to 36.6 [facility] results) Diastolic blood 97 mm[Hg] 0 - 999 Above high normal 97 mm[Hg] [facility] Systolic blood 159 mm[Hg] 0 - 999 Above high normal 159 mm[Hg] [facility] Deprecated Oxygen 99 % 0 - 999 Normal (applies to 99 % [facility] saturation in non-numeric Health Sys tem Capillary blood results) by Oximetry Respiratory rate 18 0 - 999 Above high normal 18 M [facility] System Heart rate 78 0 - 999 Normal (applies to 78 [facility] non-numeric [facility] System results) Patient Treatment Plan of Care Planned Activity Planned Date Details Description Data Source (s) Phenytoin sodium 200 MG 03/14/2019 [facility] Extended Release Oral Capsule 07:27:58 PM EST System Phenobarbital 64.8 MG Oral 03/14/2019 [facility] Tablet 07:27:36 PM EST System Sertraline 50 MG Oral Tablet 03/14/2019 [facility] 07:27:21 PM EST System Amlodipine 5 MG Oral Tablet 03/14/2019 [facility] 07:27:13 PM EST System clopidogrel 75 MG Oral Tablet 03/14/2019 [facility] 07:27:04 PM EST System benztropine mesylate 1 MG 03/14/2019 [facility] Oral Tablet 07:26:55 PM EST System Metformin hydrochloride 500 03/14/2019 [facility] MG Oral Tablet 07:26:33 PM EST System Clonazepam 1 MG Oral Tablet 03/14/2019 [facility] 07:24:42 PM EST System Phenobarbital 64.8 MG Oral 02/26/2019 [facility] Tablet 11:02:45 AM EST System Sertraline 50 MG Oral Tablet 02/26/2019 [facility] 11:02:36 AM EST System Phenytoin sodium 200 MG 02/26/2019 [facility] Extended Release Oral Capsule 11:01:51 AM EST System Amlodipine 5 MG Oral Tablet 02/26/2019 [facility] 11:01:37 AM EST System clopidogrel 75 MG Oral Tablet 02/26/2019 [facility] 11:01:30 AM EST System benztropine mesylate 1 MG 02/26/2019 [facility] Oral Tablet 11:01:21 AM EST System Metformin hydrochloride 500 [facility] Oral Tablet 11:01:06 AM EST System Amlodipine 5 MG Oral Tablet 02/04/2019 [facility] 12:35:43 PM EST System Nicotine 02/04/2019 [facility] 12:06:27 PM EST System Amlodipine 5 MG Oral Tablet 02/04/2019 [facility] 12:05:48 PM EST System clopidogrel 75 MG Oral Tablet 02/04/2019 [facility] 12:03:26 PM EST System Ibuprofen 800 MG Oral Tablet 11/24/2018 [facility] 12:27:02 AM EDT System Hydroxyzine Pamoate 50 MG 10/25/2018 [facility] Oral Capsule 06:23:48 PM EDT System Haloperidol 5 MG Oral Tablet 10/25/2018 [facility] 06:22:42 PM EDT System benztropine mesylate 1 MG [facility] 06:22:30 PM EDT System Cyclobenzaprine hydrochloride 02/24/2018 [facility] 10 MG Oral Tablet 09:51:14 AM EST System Lidocaine Hydrochloride 0.05 02/24/2018 [facility] MG/MG Transdermal Patch 09:50:31 AM EST S ystem [Lidoderm] benztropine mesylate 1 MG [facility]/14/[address] [facility] 10:20:59 AM EST System Clonazepam 0.5 MG Oral Tablet 02/14/2018 [facility] [Klonopin] 10:20:29 AM EST System Phenobarbital 97.2 MG Oral 08/24/2017 N EXTGEN ([facility] Tablet 12:00:00 AM [facility]) Phenytoin sodium 100 MG 08/24/2017 NEXT GEN ([facility] Extended Release Oral Capsule 12:00:00 AM [facility]) 200 ACTUAT Albuterol 0.09 08/24/2017 NE XTGEN ([facility] MG/ACTUAT Metered Dose 12:00:[address] [facility] Inhaler [Ventolin] [place]) Hydrochlorothiazide 25 MG 03/02/2017 NE XTGEN ([facility] Oral Tablet 12:00:00 AM [facility]) benztropine mesylate 1 MG 03/01/2017 NE XTGEN ([facility] Oral Tablet 12:00:00 AM [facility]) Hydroxyzine Pamoate 50 MG 03/01/2017 NE XTGEN ([facility] Oral Capsule [Vistaril] 12:00:00 AM [facility]) Sertraline 50 MG Oral Tablet 03/01/2017 NEXTGEN ([facility] [Zoloft] 12:00:00 AM [facility]) Haldol Decanoate 100 mg/mL 03/01/2017 N EXTGEN ([facility] intramuscular solution 12:00:00 AM [facility]) olanzapine 5 MG Oral Tablet 11/09/2015 [facility] 06:07:58 AM EDT System Levetiracetam 1000 MG Oral [facility]/09/[facility] [Keppra] 06:06:51 AM EDT System Percocet 5/325 06/18/2015 [facility] alth 11:08:20 PM EDT System Brompheniramine Maleate 0.2 05/01/2015 [facility] Health MG/ML / Dextromethorphan 08:02:50 PM EST System Hydrobromide 1 MG/ML / Pseudoephedrine Hydrochloride 3 MG/ML Oral Solution Levetiracetam 1000 MG [facility] [[facility]ra[facility] 08:00:30 PM EST System Phenobarbital 64.8 MG Oral 05/01/2015 [facility] 07:59:51 PM EST System Phenobarbital 64.8 MG Oral 04/23/2015 [facility] 08:04:46 PM EST System Levetiracetam 1000 MG Oral 04/23/2015 [facility] 08:04:29 PM EST System Phenytoin sodium 200 MG 04/23/2015 [facility] Oral Capsule 12:00:00 AM EST System tramadol hydrochloride 50 MG 04/20/2015 [facility] Oral Tablet 08:35:33 PM EST System clopidogrel 75 MG Oral Tablet 12/16/2014 [facility] 09:01:00 PM EDT System Escitalopram 10 MG Oral 12/16/2014 [facility] 08:59:32 PM EDT System Phenytoin sodium 200 MG 12/16/2014 [facility] Extended [facility] Oral Capsule 08:58:21 PM EDT System 200 ACTUAT Albuterol 0.09 11/26/[facility] Metered Dose 10:48:48 PM EDT Sy stem Inhaler [ProAir] Plavix 11/21/2014 [facility] 06:10:30 PM EDT System Multivitamin preparation [facility]/21/2014 [facility] 06:09:26 PM EDT System Thiamine 100 MG Oral Tablet 11/21/2014 [facility] 06:08:48 PM EDT System Acetaminophen 325 MG / 11/07/2014 [facility] Hydrocodone Bitartrate 5 MG 11:22:14 AM EDT System Oral Tablet Acetaminophen 325 MG / 10/18/2014 [facility] Hydrocodone Bitartrate 5 MG 06:21:52 AM EDT System Oral Tablet Acetaminophen 325 MG / 10/15/2014 [facility] Oxycodone Hydrochloride 5 MG 01:17:20 AM EDT System Oral Tablet Thiamine 100 MG Oral Tablet 09/19/2014 [facility] 09:52:42 PM EDT System Folic Acid 1 MG Oral Tablet 09/19/2014 [facility] 09:52:25 PM EDT System clopidogrel 75 MG Oral Tablet 09/19/2014 [facility] 09:52:07 PM EDT System atorvastatin 80 MG Oral 09/19/2014 [facility] Tablet 09:51:55 PM EDT System Phenytoin sodium 200 MG 09/19/2014 [facility] Extended Release Oral Capsule 09:51:43 PM EDT System Levetiracetam 1000 MG Oral 09/19/2014 [facility] Tablet 01:59:38 PM EDT System Acetaminophen 650 MG Rectal 09/19/2014 [facility] Suppository 01:51:14 PM EDT System atorvastatin 80 MG Oral 09/19/2014 [facility] Tablet 01:50:48 PM EDT System clopidogrel 75 MG Oral Tablet 09/19/2014 [facility] 01:50:22 PM EDT System Phenobarbital 64.8 MG Oral 09/19/2014 [facility] Tablet 01:47:02 PM EDT System Multivitamin preparation 09/19/2014 [facility] 12:00:00 AM EDT System Phenytoin sodium 200 MG 09/19/2014 [facility] Extended Release Oral Capsule 12:00:00 AM EDT System Phenobarbital 64.8 MG Oral 09/19/2014 [facility] Tablet 12:00:00 AM EDT System Thiamine 100 MG Oral Tablet 09/19/2014 [facility] 12:00:00 AM EDT System Folic Acid 1 MG Oral Tablet 09/19/2014 [facility] 12:00:00 AM EDT System Multivitamin preparation 09/19/2014 [facility] 12:00:00 AM EDT System Levetiracetam 1000 MG Oral 09/19/2014 [facility] Tablet 12:00:00 AM EDT System Phenytoin sodium 200 MG 09/19/2014 [facility] Extended Release Oral Capsule 12:00:00 AM EDT System Thiamine 100 MG Oral Tablet 09/19/2014 [facility] 12:00:00 AM EDT System Folic Acid 1 MG Oral Tablet 09/19/2014 [facility] 12:00:00 AM EDT System atorvastatin 80 MG Oral 09/19/2014 [facility] Tablet 12:00:00 AM EDT System Acetaminophen 650 MG Rectal 09/19/2014 [facility] Suppository 12:00:00 AM EDT System Levetiracetam 1000 MG Oral 09/19/[facility] 12:00:00 AM EDT System clopidogrel 75 MG Oral Tablet 09/19/2014 [facility] 12:00:00 AM EDT System Diazepam 5 MG Oral Tablet 09/14/2014 [facility] 01:26:44 AM EDT System Acetaminophen 325 MG / 09/14/2014 [facility] Hydrocodone Bitartrate 5 MG 01:26:02 AM EDT System Oral Tablet Cyclobenzaprine hydrochloride 09/08/2014 [facility] 10 MG Oral Tablet 11:13:16 PM EDT System Phenytoin sodium 100 MG 09/08/2014 [facility] Extended [facility] Oral Capsule 11:12:47 PM EDT System [Dilantin] Phenytoin sodium 300 MG 09/03/2014 [facility] Extended Release Oral Capsule 05:12:13 AM EDT System Tylenol with Codeine #3 06/24/2014 [facility] 12:52:46 PM EDT System Diclofenac Sodium 50 MG 08/08/2013 [facility] Delayed Release Oral Tablet 02:27:51 PM EDT System Metronidazole 250 MG Oral 04/21/2013 [facility] Tablet [Flagyl] 02:04:27 PM EST System Ciprofloxacin 500 MG Oral 04/21/2013 [facility] [Cipro] 02:04:06 PM EST System Phenytoin sodium 300 MG 04/14/2013 [facility] Extended Release Oral Capsule 06:58:03 PM EST System [Phenytek] Phenobarbital 60 MG Oral 04/14/2013 [facility] Tablet 06:57:36 PM EST System Dilantin [facility] Phen[facility] Lipitor [facility] Plavix [facility] Phenobarbital 97.2 MG Oral [facility]t System Dilantin [facility]ercocet 5/325 [facility] Benadryl [facility] Cogentin [facility] Plavix [facility] Phenobarbital [facility] Dilantin [facility] Cogentin [facility] Dilantin [facility] Phenobarbital [facility] Plavix [facility] Phenytoin sodium 100 MG [facility] Extended Release Oral Capsule System [Dilantin] Perphenazine 16 MG Oral [facility] Tablet System Cogentin [facility] Haldol [facility] Phenytoin sodium 100 MG [facility] Extended Release Oral Capsule System [Dilantin] Phenobarbital 97.2 MG Oral [facility] Tablet System Dilantin [facility] Dilantin [facility] Haldol [facility] Dilantin [facility] Phenobarbital [facility] Trazodone Hydrochloride 150 [facility] MG Oral Tablet System Cogentin [facility] 24 HR Trazodone Hydrochloride [facility] 150 MG Extended Release Oral System Tablet Haloperidol 5 MG Oral Tablet [facility] Escitalopram 20 MG Oral [facility] Tablet System benztropine mesylate 1 MG [facility] Oral Tablet System Dilantin [facility]
[2019-11-24] MEDS ORDERED: ONDANSETRON 4 MG/2 ML VIAL IVPUSH ONE (12:18)
[2019-11-24] MEDS ORDERED: ACETAMINOPHEN 1000 MG/100 ML VIAL (NON FORMULARY) IVPB ONE (12:18)
[2019-11-24 15:22] LABS: BASO % 1.2 % (0-2.0); HEMOGLOBIN 15.5 GM/dL (10.7-15.3); LYMPH % 28.9 % (8-40); MCHC 33.8 g/dl (32.0-36.0); MEAN CELL VOLUME 85.9 fl (80-96); MONO % 7.5 % (3.8-10.2); NEUT % 60.4 % (42.8-82.8); PLATELET COUNT 320 K/MM3 (134-434); RBC 5.36 M/mm3 (3.60-5.2); RDW 14.8 % (11.6-15.6); WHITE BLOOD COUNT 10.4 K/mm3 (4.0-10.0)
[2019-11-24 15:28] LABS: INR 1.03 (0.83-1.09); PROTHROMBIN TIME (PATIENT) 12.1 SEC (9.7-13.0)
[2019-11-24 15:31] LABS: ACTIVATED PTT 27.9 SECONDS (25.2-36.5)
[2019-11-24 15:50] LABS: ALBUMIN 3.9 g/dl (3.4-5.0); ALK PHOS 102 U/L (45-117); ANION GAP 7 MMOL/L (8-16); BILIRUBIN,TOTAL 0.5 mg/dL (0.2-1); BLOOD UREA NITROGEN 11.2 mg/dL (7-18); CALCIUM 10.2 mg/dL (8.5-10.1); CHLORIDE 106 mmol/L (98-107); CO2 28 mmol/L (21-32); CREATININE 0.9 mg/dL (0.55-1.3); GLUCOSE,RANDOM 171 mg/dL (74-106); MAGNESIUM 2.2 mg/dL (1.8-2.4); POTASSIUM 4.1 mmol/L (3.5-5.1); SGOT/AST 22 U/L (15-37); SGPT/ALT 24 U/L (13-61); SODIUM 141 mmol/L (136-145); TOT PROT 7.4 g/dl (6.4-8.2)
--- NOTE | 2019-11-24 19:52 | EKG ---
Test Reason : Blood Pressure : / mmHG Vent. Rate : 084 BPM Atrial Rate : 084 BPM P-R Int : 170 ms QRS Dur : 084 ms QT Int : 386 ms P-R-T Axes : 061 -14 068 degrees QTc Int : 456 ms NORMAL SINUS RHYTHM MINIMAL VOLTAGE CRITERIA FOR LVH, MAY BE NORMAL VARIANT INFERIOR INFARCT (CITED ON OR BEFORE 07-OCT-2015) ABNORMAL ECG WHEN COMPARED WITH ECG OF 07-OCT-2015 21:00, NO SIGNIFICANT CHANGE WAS FOUND Confirmed by ALMA DELIA BROWN MD ([id number]) on 11/24/2019 7:52:16 PM Referred By: Confirmed By:ALMA DELIA BROWN MD
== END 2019-11-24 16:33 | disposition left against medical advice (07) ==
LOC: JER 10:49
PROC: 3E0333Z Introduction of Anti-inflammatory into Peripheral Vein, Percutaneous Approach (ICD-10-PCS; principal; 2019-11-24)
PROC: 3E033GC Introduction of Other Therapeutic Substance into Peripheral Vein, Percutaneous Approach (ICD-10-PCS; 2019-11-24)
DX: R55 Syncope and collapse (principal)
CPT/HCPCS: 36415; 70450-TC; 71045-TC-FY; 80053; 82550; 82553; 82962; 83735; 84484; 85025; 85610; 85730; 93005; 93010; 99285-25; J0131

== ENCOUNTER 2021-08-24 09:45 | Emergency (ER) | payer BC, OTHER ==
[2021-08-24 10:01] VITALS: BP 186/69; PULSE 92; TEMP 98.3; BMI 32.3
== END 2021-08-24 10:42 | disposition left against medical advice (07) ==
LOC: JER 09:45
DX: R73.9 Hyperglycemia, unspecified (principal)
CPT/HCPCS: 82962; 99283-25

== ENCOUNTER 2021-08-25 08:27 | Emergency (ER) | payer SELFPAY ==
[2021-08-25 09:04] VITALS: BP 149/72; TEMP 98.2; BMI 32.3
[2021-08-25 09:35] VITALS: PULSE 71
== END 2021-08-25 10:15 | disposition home or self-care (01) ==
LOC: JER 08:27
DX: R05.1 Acute cough (principal)
CPT/HCPCS: 0241U-QW; 71046-TC-FY; 99284-25

== ENCOUNTER 2021-09-18 12:50 | Inpatient (IN) | payer SELFPAY ==
[2021-09-18] MEDS ORDERED: SODIUM CHLORIDE 500 ML IV STA (13:35)
[2021-09-18] MEDS ORDERED: ASPIRIN 81 MG CHEWABLE TABLETS PO ONE (13:38)
[2021-09-18 13:43] LABS: BASO % 0.6 % (0-2.0); EOS % 0.3 % (0-4.5); HEMATOCRIT 43.1 % (32.4-45.2); HEMOGLOBIN 13.9 GM/dL (10.7-15.3); LYMPH % 15.9 % (8-40); MCH 26.8 pg (25.7-33.7); MCHC 32.1 g/dl (32.0-36.0); MEAN CELL VOLUME 83.6 fl (80-96); MEAN PLT VOLUME 8.5 fl (7.5-11.1); MONO % 7.6 % (3.8-10.2); NEUT % 75.6 % (42.8-82.8); PLATELET COUNT 459 10^3/uL (134-434); RBC 5.16 M/mm3 (3.60-5.2); RDW 15.6 % (11.6-15.6); WHITE BLOOD COUNT 9.6 K/mm3 (4.0-10.0)
[2021-09-18] MEDS ORDERED: ASPIRIN 81 MG CHEWABLE TABLETS ONE (13:49)
[2021-09-18 13:57] LABS: ACTIVATED PTT 30.8 SECONDS (25.2-36.5); INR 1.04 (0.83-1.09)
[2021-09-18] MEDS ORDERED: ACETAMINOPHEN 1000 MG/100 ML BAG IVPB ONE (14:07)
[2021-09-18 14:10] LABS: CHLORIDE 95 mmol/L (98-107); SODIUM 131 mmol/L (136-145)
[2021-09-18 14:13] LABS: ALBUMIN 3.7 g/dl (3.4-5.0); ANION GAP 16 MMOL/L (8-16); BLOOD UREA NITROGEN 9.7 mg/dL (7-18); CALCIUM 10.1 mg/dL (8.5-10.1); CO2 20 mmol/L (21-32); MAGNESIUM 2.2 mg/dL (1.8-2.4)
[2021-09-18 14:14] LABS: EPI CELLS 5 /uL (0-25.1); HYALINE CASTS 0 /uL (0-3.1); URINE APPEARANCE CLEAR; URINE BACTERIA 102 /uL (0-1359); URINE BILIRUBIN NEGATIVE (NEGATIVE); URINE COLOR YELLOW; URINE GLUCOSE (UA) 3+ (NEGATIVE); URINE KETONE 4+ (NEGATIVE); URINE LEUK ESTERASE NEGATIVE (NEGATIVE); URINE NITRITE NEGATIVE (NEGATIVE); URINE PROTEIN NEGATIVE (NEGATIVE); URINE RBC 9 /uL (0-23.9); URINE UROBILINOGEN 0.2 mg/dL (0.2-1.0); URINE WBC 16 /uL (0-25.8)
[2021-09-18 14:16] LABS: PHOSPHOROUS 3.6 mg/dL (2.5-4.9); SGOT/AST 26 U/L (15-37)
[2021-09-18 14:17] LABS: BILIRUBIN,TOTAL 0.4 mg/dL (0.2-1); CREATININE 1.2 mg/dL (0.55-1.3); SGPT/ALT 31 U/L (13-61); TOT PROT 7.4 g/dl (6.4-8.2)
[2021-09-18 14:19] LABS: ALK PHOS 115 U/L (45-117)
[2021-09-18] MEDS ORDERED: FAMOTIDINE 20 MG/50 ML IVPB 20 MG/50 ML MG IVPB ONE ×2 (14:21→14:54)
[2021-09-18 14:22] LABS: N-TERMINAL BNP 488.2 pg/ml (5-125)
[2021-09-18] MEDS ORDERED: SODIUM CHLORIDE 0.9% 500 ML INFUS.BAG IV ONE (14:22)
[2021-09-18 14:30] LABS: GLUCOSE,RANDOM 592 mg/dL (74-106)
[2021-09-18] MEDS ORDERED: DEXTROSE 50%-WATER - 25 GM/50 ML VIAL IVPUSH PRN (14:40)
[2021-09-18] MEDS ORDERED: INSULIN REGULAR 100 UNITS in SODIUM CHLORIDE 99 ML IVPB SCH (14:45)
[2021-09-18] MEDS ORDERED: ACETAMINOPHEN INJECTION 100 ML IVPB ONE (14:53)
[2021-09-18] MEDS: SODIUM CHLORIDE 0.45%/POT 20 MEQ/1,000 ML INFUS.BAG IV SCH (15:06)
[2021-09-18] MEDS ORDERED: ONDANSETRON *ODT* 4 MG TABLET ONE (19:26)
[2021-09-18] MEDS ORDERED: GABAPENTIN 300 MG CAPSULE PO ONE (21:15)
[2021-09-18] MEDS ORDERED: ALTEPLASE 100 MG/100 ML VIAL IVPB ONE (21:49)
[2021-09-18] MEDS ORDERED: RAPID SEQUENCE INTUBATION KIT NR ONE (21:59)
[2021-09-18] MEDS ORDERED: ALTEPLASE 100MG 100 ML ONE (22:03)
[2021-09-18] MEDS ORDERED: LORazepam 2 MG/ML SDV VIAL IVPUSH ONE ×2 (22:10)
[2021-09-18 23:46] VITALS: BMI 37.1
[2021-09-19] MEDS ORDERED: INSULIN (LEVEMIR) 100 UNITS/ML UNITS SQ STA (00:08)
[2021-09-19] MEDS: LACTATED RINGERS SOLUTION 1,000 ML/1,000 ML INFUS.BAG IV STA ×2 (00:16→02:35)
[2021-09-19 01:58] LABS: CALCIUM 9.8 mg/dL (8.5-10.1)
[2021-09-19 01:59] LABS: MAGNESIUM 2.2 mg/dL (1.8-2.4)
[2021-09-19 02:00] LABS: BLOOD UREA NITROGEN 9.1 mg/dL (7-18)
[2021-09-19 02:02] LABS: CREATININE 0.9 mg/dL (0.55-1.3); PHOSPHOROUS 3.3 mg/dL (2.5-4.9)
[2021-09-19] MEDS ORDERED: LORazepam 2 MG/ML SDV VIAL IVPUSH ONE (07:16)
[2021-09-19] MEDS: SODIUM CHLORIDE 0.45%/POT 20 MEQ/1,000 ML INFUS.BAG IV SCH (08:11)
[2021-09-19 08:33] LABS: HEMATOCRIT 37.9 % (32.4-45.2); HEMOGLOBIN 12.8 GM/dL (10.7-15.3); MCH 27.6 pg (25.7-33.7); MCHC 33.8 g/dl (32.0-36.0); MEAN CELL VOLUME 81.7 fl (80-96); PLATELET COUNT 393 10^3/uL (134-434); RBC 4.64 M/mm3 (3.60-5.2); WHITE BLOOD COUNT 6.7 K/mm3 (4.0-10.0)
[2021-09-19 09:09] LABS: CALCIUM 9.5 mg/dL (8.5-10.1)
[2021-09-19 09:10] LABS: BLOOD UREA NITROGEN 7.4 mg/dL (7-18)
[2021-09-19 09:13] LABS: CREATININE 0.8 mg/dL (0.55-1.3)
[2021-09-19] MEDS ORDERED: INSULIN SLIDING SCALE (NOVOLOG) 1 VIAL SQ SCH ×3 (11:00→14:00)
[2021-09-19] MEDS ORDERED: CLOPIDOGREL BISULFATE 75 MG TABLET (FP) PO SCH (11:45)
[2021-09-19 13:18] VITALS: TEMP 98.2
[2021-09-19] MEDS: GABAPENTIN 300 MG CAPSULE PO SCH ×2 (13:33→21:16)
[2021-09-19] MEDS ORDERED: PHENYTOIN 50 MG TAB.CHEW PO SCH ×2 (14:00→22:00)
[2021-09-19] MEDS ORDERED: DEXTROSE 50%-WATER 25 GM/50 ML DISP.SYRIN IVPUSH PRN (15:13)
[2021-09-19 16:40] VITALS: RESP 20
[2021-09-19] MEDS: INSULIN SLIDING SCALE (NOVOLOG) 1 VIAL SQ SCH ×2 (16:51→21:16)
[2021-09-19 18:03] VITALS: BP 134/88; PULSE 87
[2021-09-19] MEDS ORDERED: diphenhydrAMINE HCL 25 MG CAPSULE (FP) PO ONE (20:40)
[2021-09-19] MEDS ORDERED: INSULIN (LEVEMIR) 100 UNITS/ML UNITS SQ SCH ×2 (22:00)
== END 2021-09-19 23:00 | disposition left against medical advice (07) | DRG 420 ==
LOC: JER 12:50 → JERBED 16:14 → JICU 23:17 → J2W 09-19 14:48
PROVIDERS: ADMIT Internal Medicine Pulmonary Disease; ATTEND Internal Medicine Pulmonary Disease
PROC: 05HB33Z Insertion of Infusion Device into Right Basilic Vein, Percutaneous Approach (ICD-10-PCS; principal; 2021-09-19)
PROC: B54MZZA Ultrasonography of Right Upper Extremity Veins, Guidance (ICD-10-PCS; 2021-09-19)
DX: E11.10 Type 2 diabetes mellitus with ketoacidosis without coma (principal); G40.909 Epilepsy, unspecified, not intractable, without status epilepticus; I10 Essential (primary) hypertension; I69.354 Hemiplegia and hemiparesis following cerebral infarction affecting left non-dominant side; E66.9 Obesity, unspecified; Z68.37 Body mass index [BMI] 37.0-37.9, adult; E78.5 Hyperlipidemia, unspecified; Z53.29 Procedure and treatment not carried out because of patient's decision for other reasons; F17.200 Nicotine dependence, unspecified, uncomplicated; Z79.4 Long term (current) use of insulin
CPT/HCPCS: 0241U-QW; 36415; 70450-TC; 71045-TC-FY; 76604; 80048; 80053; 81003; 82010; 82962; 83735; 83880; 84100; 84484; 85025; 85027; 85610; 85730; 87086; 93005; 93010; 93308; 99285-25; J3480